=== PATIENT | male | born 1945 | race African-American/Black ===

== ENCOUNTER 2016-11-11 08:32 | Inpatient (IN) | payer MEDICARE, BC ==
[~2016-11-11] VITALS: Ht 185.4 cm; Wt 67.3 kg
[2016-11-11] VITALS (14 sets, daily range): BP systolic 62–137; BP diastolic 42–84
[~2016-11-11 08:32] MED LIST: AMLO5TAB2 PO; BISA5TAB4 PO; BUDE10.2 IH; CLON0.3T PO; FLUT12HF2 IH; IPRA4AER IH; LABE20DI IV; LEVO500T38 PO; MELO-150 PO; MOME13HF2 IH; OXYC20TA PO; PRED20TA PO; PROAIR HFA8.5 GM IH
[2016-11-11] MEDS ORDERED: IV NORMAL SALINE 1000ML BAG 1,000 ML IV ONE ×3 (08:45→09:30)
[2016-11-11] MEDS ORDERED: MIDAZOLAM HCL 2 MG/2 ML VIAL. IV PRN (08:45)
[2016-11-11] MEDS ORDERED: ETOMIDATE 20 MG/10 ML VIAL. IV ONE (08:45)
[2016-11-11] MEDS ORDERED: FENTANYL STANDARD PCA 30 ML IV PRN (08:45)
[2016-11-11] MEDS ORDERED: SUCCINYLCHOLINE 200 MG/10 ML VIAL. IV ONE (08:45)
[2016-11-11] MEDS ORDERED: MORPHINE SULFATE 4 MG/ML DISP.SYRIN. IV PRN (08:45)
[2016-11-11 09:29] LABS: BASE EXCESS COOX 10 mmol/L (-3-3); CARBON MONOXIDE 1.1 % (0.0-1.9); HCO3 COOX 40 mmol/L (21-28); METHEMOGLOBIN 0.5 % (0.0-1.9); OXYHEMOGLOBIN 96.5 %; PH COOX 7.28 (7.35-7.45); PO2 COOX 105 mmHg (65-108); SAT O2 COOX 98 % (92-99); TOTAL HEMOGLOBIN 13.9 g/dL
[2016-11-11] MEDS ORDERED: PIP/TAZO PER PHARMACY MC PRN (09:30)
[2016-11-11] MEDS ORDERED: LEVOFLOXACIN PER PHARMACY MC PRN (09:30)
[2016-11-11 09:33] LABS: BILIRUBIN,URINE NEGATIVE (NEG); GLUCOSE,URINE 100 mg/dL (NEG); NITRITE,URINE NEGATIVE (NEG); PH,URINE 5.5
[2016-11-11 09:37] LABS: FIO2 COOX 100; PCO2 COOX 88 mmHg (35-46)
[2016-11-11 09:41] LABS: BASO % 0 % (0-3); EOS % 0 % (0-3); HEMATOCRIT 42.7 % (39.0-53.0); HEMOGLOBIN 12.7 g/dL (13.0-17.5); LYMPH # 0.3 x10^3/uL (1.0-4.8); LYMPH % 1 % (24-48); MEAN CORPUSCULAR HEMOGLOBIN 29 pg (25-35); MEAN CORPUSCULAR HGB CONC 30 g/dL (31-37); MEAN CORPUSCULAR VOLUME 97 fL (79-100); MONO % 5 % (0-9); NEUT % 94 % (31-73); PLATELET COUNT 171 x10^3/uL (140-400); RED BLOOD COUNT 4.41 x10^6/uL (4.30-5.70); RED CELL DISTRIBUTION WIDTH 13.1 % (11.5-14.5); WHITE BLOOD COUNT 24.9 x10^3/uL (4.0-11.0)
--- NOTE | 2016-11-11 09:41 | PHYS DOC ---
Past Medical History Past Medical History: COPD, Hypertension Past Surgical History: Knee Replacement, Other Additional Past Surgical Histo: PROSTATE, WRIST Alcohol Use: Occasionally Drug Use: None Adult General Chief Complaint Chief Complaint: RESP ARREST HPI HPI Patient is a 71 year old male who presents by EMS for respiratory distress and altered mental status. He does not contribute to history due to altered mental status. His female significant other states he was talkative yesterday, and had no complaints at that time. He has been wearing home oxygen of 12 L. She woke this morning around 0530 and he was not responsive and breathing slowly. She had not noticed increased cough. She denies him complaining of anything recently since being home from hospital. 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) 30 ml @ 0 mls/hr CONT PRN 11/11/16 08:45 Levofloxacin/ Dextrose 1 each 1 each PRN DAILY PRN 11/11/16 09:30 Midazolam HCl (Versed 100mg/ 100ml Premix) 100 ml @ 0 mls/hr CONT PRN 11/11/16 08:45 11/11/16 10:09 1 MLS/HR Midazolam HCl 1 mg 1 mg PRN Q30MIN PRN 11/11/16 08:45 11/11/16 09:15 1 MG Morphine Sulfate 4 mg PRN Q1HR PRN 11/11/16 08:45 Piperacillin Sod/ Tazobactam Sod (Zosyn Per Pharmacy) 1 each PRN DAILY PRN 11/11/16 09:30 Sodium Chloride (Iv Sodium Chloride 0.9% 1000ml Bag) 1,000 ml @ 1,000 mls/hr 1X ONCE 11/11/16 09:30 11/11/16 10:29 DC 11/11/16 09:37 1,000 MLS/HR Succinylcholine Chloride 100 mg 100 mg 1X ONCE 11/11/16 08:45 11/11/16 08:46 DC 11/11/16 08:45 100 MG Vancomycin HCl (Vanco Per Pharmacy) 1 each PRN DAILY PRN 11/11/16 09:30 11/11/16 12:35 1 EACH Allergies Allergies Allergies Coded Allergies Type Severity Reaction Last Updated Verified lisinopril Allergy Intermediate 06/11/16 Yes Physical Exam Physical Exam Constitutional: Thin, Not responsive [] HENT: Normocephalic, atraumatic, bilateral external ears normal, oropharynx dry , no oral exudates, nose normal. [] Eyes: Pupils pinpoint and equal bilaterally, conjunctiva normal, no discharge. No eye movement [] Neck: no tenderness, no stridor. [] Cardiovascular: Heart rate regular rhythm [] Lungs & Thorax: Diminished bilaterally, equal, bagged breath sounds, shallow/ agonal/slow spontaneous breathing [] Abdomen: Bowel sounds normal, soft, no tenderness. [] Skin: Warm, dry, no erythema, no rash. [] Back: No tenderness, no CVA tenderness. [] Extremities: No tenderness, no edema. [] Neurologic: GCS 3 [] Psychologic: Unable to assess secondary to altered mental status. [] Current Patient Data Vital Signs Vital Signs Date Time Temp Pulse Resp B/P Pulse Ox O2 Delivery O2 Flow Rate FiO2 11/11/16 09:25 102 18 76/53 99 Ventilator 11/11/16 09:09 98.4 98.4 Lab Values Laboratory Tests Test 11/11/16 08:08 11/11/16 08:39 11/11/16 09:20 Urine Collection Type U cath Urine Color Yellow Urine Clarity Clear Urine pH 5.5 Urine Specific [place] 1.020 Urine Protein Negativemg/dL (NEG-TRACE) Urine Glucose (UA) 100mg/dL (NEG) Urine Ketones (Stick) Negativemg/dL (NEG) Urine Blood Negative (NEG) Urine Nitrite Negative (NEG) Urine Bilirubin Negative (NEG) Urine Urobilinogen Dipstick 1.0mg/dL (0.2 mg/dL) Urine Leukocyte Esterase Negative (NEG) Urine RBC 0/HPF (0-2) Urine WBC 1-4/HPF (0-4) Urine Squamous Epithelial Cells None/LPF Urine Bacteria 0/HPF (0-FEW) Urine Mucus Slight/LPF O2 Saturation 98% (92-99) Arterial Blood pH 7.28 (7.35-7.45) L Arterial Blood pCO2 at Patient Temp 88mmHg (35-46) *H Arterial Blood pO2 at Patient Temp 105mmHg (65-108) Arterial Blood HCO3 40mmol/L (21-28) H Arterial Blood Base Excess 10mmol/L (-3-3) H Oxyhemoglobin 96.5% Methemoglobin 0.5% (0.0-1.9) Carbon Monoxide, Quantitative 1.1% (0.0-1.9) FiO2 100 White Blood Count 24.9x10^3/uL (4.0-11.0) #H Red Blood Count 4.41x10^6/uL (4.30-5.70) Hemoglobin 12.7g/dL (13.0-17.5) L Hematocrit 42.7% (39.0-53.0) Mean Corpuscular Volume 97fL (79-100) # Mean Corpuscular Hemoglobin 29pg (25-35) Mean Corpuscular Hemoglobin Concent 30g/dL (31-37) L Red Cell Distribution Width 13.1% (11.5-14.5) Platelet Count 171x10^3/uL (140-400) Neutrophils (%) (Auto) 94% (31-73) H Lymphocytes (%) (Auto) 1% (24-48) L Monocytes (%) (Auto) 5% (0-9) Eosinophils (%) (Auto) 0% (0-3) Basophils (%) (Auto) 0% (0-3) Neutrophils # (Auto) 23.4x10^3uL (1.8-7.7) H Lymphocytes # (Auto) 0.3x10^3/uL (1.0-4.8) L Monocytes # (Auto) 1.2x10^3/uL (0.0-1.1) H Eosinophils # (Auto) 0.0x10^3/uL (0.0-0.7) Basophils # (Auto) 0.0x10^3/uL (0.0-0.2) Platelet Estimate Pending Prothrombin Time 14.0SEC (11.7-14.0) Prothrombin Time INR 1.2 (0.8-1.1) H Sodium Level 142mmol/L (136-145) Potassium Level 6.8mmol/L (3.5-5.1) *H Chloride Level 100mmol/L (98-107) Carbon Dioxide Level 40mmol/L (21-32) H Anion Gap 2 (6-14) L Blood Urea Nitrogen 46mg/dL (8-26) H Creatinine 1.6mg/dL (0.7-1.3) H Estimated GFR (Cockcroft-Gault) 51.5 Glucose Level 70mg/dL (70-99) Calcium Level 7.8mg/dL (8.5-10.1) L Total Bilirubin 0.4mg/dL (0.2-1.0) Direct Bilirubin 0.1mg/dL (0.0-0.2) Aspartate Amino Transferase (AST) 24U/L (15-37) Alanine Aminotransferase (ALT) 42U/L (16-63) Alkaline Phosphatase 17U/L (46-116) L Ammonia 49mcmol/L (11-34) H Troponin I Quantitative 0.053ng/mL (0.000-0.055) VT-Fii-X-Type Natriuretic Peptide 2080pg/mL (0-124) H Total Protein 4.9g/dL (6.4-8.2) L Albumin 2.1g/dL (3.4-5.0) L Laboratory Tests 11/11/16 09:20 Laboratory Tests 11/11/16 09:20 EKG EKG EKG as interpreted bilaterally normal sinus rhythm, rate 99, no ST-T changes, normal intervals, no ectopy Radiology/Procedures Radiology/Procedures Chest x-ray as interpreted by me with left mid and lower lung field consolidation Course & Med Decision Making Course & Med Decision Making Pertinent Labs and Imaging studies reviewed. (See chart for details) This is a 71-year-old male presenting in acute on chronic respiratory failure and altered mental status. His chest x-ray has signs of consolidation concerning for healthcare associated pneumonia. He is hypotensive and being resuscitated with IV fluids. His blood gas shows acute on chronic respiratory acidosis. He has leukocytosis and hyperkalemia. His hyperkalemia is treated with insulin/dextrose, albuterol, calcium. His hospice civil rights representative discussed that he is Full Code with nursing. Had discussion with daughter via phone, and his girlfriend and bolting machine operator both present here. All 3 were in agreement he is full code and this is what was related to EMS and myself during initial evaluation. There was no paperwork provided at this point. He was intubated with apparent agonal respirations. He had persistent hypotension despite IV fluid administration, so central line was placed and Levophed was started. I then spoke with Dr. Soto, who recently cared for him during his last admission, and she stated he is actually DNR per her discussion with him within the past week. At this point, he will be admitted to the ICU with continued care. Pulmonary/CC consultation placed. Discussed case also with Dr. Hernandez, covering for Dr. Soto, who will admit. Palliative Care consult placed. Dragon Disclaimer Dragon Disclaimer This electronic medical record was generated, in whole or in part, using a voice recognition dictation system. Intubation Procedure Intub Indication: Respiratory failure Consent: Unable to give consent due to emergent nature. Medications Used: see nursing note Procedure: The patient was placed in the appropriate position. Intubation was performed direct laryngoscopy using a 4 Mac blade and 7.5 endotracheal tube. ET tube was secured 25 cm at the gum. Initial confirmation of placement included bilateral breath sounds, tube fogging, adequate chest rise, adequate pulse oximetry reading. A chest x-ray to verify correct placement of the tube showed appropriate tube position. The patient tolerated the procedure well. Complications: none. Central Line Placement Proc Central Line Indication: Vascular access Consent: Emergent. Procedure: The patient was positioned appropriately and the skin over the right femoral vein was prepped and draped in a sterile fashion. A large bore needle was used to identify the vein. A guide wire was then inserted into the vein through the needle. A triple lumen catheter was then inserted into the vessel over the guide wire using the Seldinger technique. All ports showed good, free flowing blood return and were flushed with saline solution. The catheter was then securely fastened to the skin with sutures and covered with a sterile dressing. A post procedure X-ray was ordered. The patient tolerated the procedure well. Complications: none. [] Date and Time of Reassessment Date: Nov 11, 2016 Time: 10:00 Fluid Challenge Is the fluid challenge complet: Yes Blood Culture TIme: 09:22 Time Antibiotics Given: 09:55 Vital Signs Vital Signs: Vital Signs Date Time Temp Pulse Resp B/P Pulse Ox O2 Delivery O2 Flow Rate FiO2 11/11/16 09:25 102 18 76/53 99 Ventilator 11/11/16 09:09 98.4 98.4 Temperature Source: Axillary Respirations Respiratory Effort: Mechanical ventilation Respiratory Pattern: Bradypnea Cardiovascular Pulse Rhythm: Regular Heart: Nml rate, reg. rhythm Lung Sounds Breath Sounds: Clear Capillary Refil Capillary Refill: Rt Hand > 3 seconds Peripheral Pulse Pulse Location: Radial Pulse Strength: Weak (1+) Pulse Assessment Method: Palpation Integumentary Skin: Warm, Dry Skin Moisture: Dry Skin Turgor: Tented Skin Color: no edema, no erythema Fingernail Color: WNL Critical Care Time Critical care time was 60 minutes exclusive of procedures. Departure Departure Impression: Primary Impression: Acute and chronic respiratory failure ([id number]) Additional Impressions: HCAP (healthcare-associated pneumonia) Septic shock Hyperkalemia Disposition: ADMITTED INPATIENT Condition: CRITICAL Referrals: LEISA HARRISON MD (PCP) Problem Qualifiers Primary Impression: Acute and chronic respiratory failure ([id number]) Respiratory failure complication: hypoxia and hypercapnia Qualified Code: J96.21 - Acute and chronic respiratory failure with hypoxia Hari HART MD Nov 11, 2016 09:41
[2016-11-11] MEDS ORDERED: PIPERACILLIN/TAZOBACTAM 4.5 GM in IV NORMAL SALINE 100ML 100 ML IV ONE (09:45)
[2016-11-11] MEDS ORDERED: NOREPINEPHRIN PREMIX 250 ML IV ONE (09:45)
[2016-11-11] MEDS ORDERED: VANCOMYCIN 1.25 GM in IV NORMAL SALINE 250ML 250 ML IV ONE (09:45)
[2016-11-11 09:51] LABS: INR 1.2 (0.8-1.1)
[2016-11-11 09:52] LABS: ALBUMIN 2.1 g/dL (3.4-5.0); CALCIUM 7.8 mg/dL (8.5-10.1); CREATININE 1.6 mg/dL (0.7-1.3); DIRECT BILIRUBIN 0.1 mg/dL (0.0-0.2); GFR 51.5; TOTAL BILIRUBIN 0.4 mg/dL (0.2-1.0); TOTAL PROTEIN 4.9 g/dL (6.4-8.2)
--- NOTE | 2016-11-11 09:57 | ACF ---
Admission Forms Criteria RESPIRATORY FAILURE [facility] Clinical Indications for Admission to Inpatient Care (Place 'X' for any and all applicable criteria): Hospital admission is needed for appropriate care of the patient because of acute respiratory failure or insufficiency as indicated by ANY ONE of the following(1)(2)(3)(4)(5)(6)(7)(8): [X]I. Mechanical ventilation needed (acute invasive or noninvasive) [ ]II. Severe ventilation deficit as indicated by ANY ONE of the following (9) [ ]a) Respiratory acidosis (pH less than 7.32 and partial pressure of carbon dioxide greater than 40 mm Hg (5.3 kPa)) [ ]b) Partial pressure of carbon dioxide greater than 44 mm Hg (5.9 kPa ) (new) [ ]c) Airflow measurements less than 25% of predicted (eg, peak expiratory flow rate less than 100 L/minute) [ ]d) Forced vital capacity less than 15 mL/kg of ideal body weight, or 50% decrease in vital capacity from baseline [ ]III. Noncardiac pulmonary edema not resolving with rapid emergency treatment (8) [ ]IV. Severe respiratory distress as indicated by ANY ONE of the following: [ ]a) Severe tachypnea (respiratory rate greater than 30, greater than 45 for 6-month-old, greater than 60 for ) [ ]b) Severe hypoxemia (partial pressure of oxygen less than 50 mm Hg ( 6.7 kPa) on greater than 50% oxygen or partial pressure of oxygen to FIO2 ratio less than 200) [ ]c) Mental status deterioration from respiratory disease [ ]V. Airway obstruction or inadequate protection [A](10)(11) The original [employer] content created by [employer] has been revised. The portions of the content which have been revised are identified through the use of italic text or in bold, and [employer] has neither reviewed nor approved the modified material. All other unmodified content is copyright [employer]. Please see references footnoted in the original [employer] edition 2016 Admission Criteria Met?: Yes KAYY PENNINGTON Nov 11, 2016 09:57
[2016-11-11 09:58] LABS: BACTERIA,URINE 0 /HPF (0-FEW); PROTEIN,URINE NEGATIVE (NEG-TRACE); RBC,URINE 0 /HPF (0-2)
[2016-11-11 09:59] LABS: POTASSIUM 6.8 mmol/L (3.5-5.1)
[2016-11-11] MEDS: MIDAZOLAM PREMIX 100 ML IV PRN (10:09)
[2016-11-11] MEDS ORDERED: ALBUTEROL SULFATE 2.5 MG/3 ML NEBU. NEB ONE (10:15)
[2016-11-11] MEDS ORDERED: DEXTROSE 50% 25 GM / 50ML DISP.SYRIN. IV ONE (10:15)
[2016-11-11] MEDS ORDERED: INSULIN REGULAR 100 UNIT/ML 10ML VIAL. IV ONE (10:15)
--- NOTE | 2016-11-11 10:29 | RAD ---
Exam performed: One view chest. History: Post intubation. Date of service: 11/11/16. Comparison: One view chest from 11/04/16. Single AP upright portable view chest findings: Interval intubation, the tip of the endotracheal tube is in the midtrachea. There is also placement of a feeding tube which traverses through the midline chest. The tip is not seen however extends below left hemidiaphragm. There is development of infiltrates in the left mid and lower lung. The right lung is clear. No pleural effusion or pneumothorax. Impression: Interval intubation and placement of a feeding tube as outlined above. Interval development of diffuse infiltrates in the left mid and lower lung.
[2016-11-11] MEDS ORDERED: CALCIUM CHLORIDE 1,000 MG in IV NORMAL SALINE 50ML 50 ML IV ONE (10:30)
[2016-11-11] MEDS ORDERED: ONDANSETRON PF 4 MG/2 ML VIAL. IV PRN (10:30)
[2016-11-11] MEDS ORDERED: ACETAMINOPHEN 325 MG TABLET. PO PRN (10:30)
--- NOTE | 2016-11-11 10:30 | EKG ---
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
--- NOTE | 2016-11-11 10:45 | RAD ---
Exam performed: CT scan of the head without contrast. Date of Service: 11/11/16. Comparison: 05/13/13. Clinical History: Altered mental status, unresponsive. Patient is a poor historian Technique: Helical acquisitions are obtained from the foramen magnum to the vertex without intravenous administration of contrast. Findings: Prominence of cortical sulci and ventricular system is noted consistent with age related atrophy. There are areas of low-attenuation in both periventricular and subcortical deep white matter suggesting small vessel ischemic changes. Normal bejarano-white differentiation is maintained. There is no extra axial fluid collection, intraparenchymal hemorrhage or mass lesion. The visualized portions of the orbits, paranasal sinuses and the mastoid air cells appear clear. The calvarium is intact. Impression: 1. No acute intracranial process detected. 2. Age related atrophy and bilateral periventricular small vessel ischemic changes are redemonstrated. PQRS Compliance Statement: One or more of the following individualized dose reduction techniques were utilized for this examination: 1. Automated exposure control 2. Adjustment of the mA and/or kV according to patient size 3. Use of iterative reconstruction technique
[2016-11-11] MEDS ORDERED: MIDAZOLAM HCL/PF 5 MG/5 ML VIAL ONE (11:15)
--- NOTE | 2016-11-11 12:22 | CONS ---
DATE OF CONSULTATION: ATTENDING PHYSICIAN: Dr. Mahi Soto. REASON FOR CONSULTATION: Respiratory failure. HISTORY OF PRESENT ILLNESS: The patient is a 71-year-old male who has highly suspected end-stage COPD with chronic hypercapnia and hypoxia. He is very well known to me from his previous admission when he required hospitalization for acute respiratory failure secondary to COPD exacerbation. His echo at that time showed an ejection fraction of 65-70% and PA pressure of 47. The patient had further decline in his mental status and hypercapnia. Prior to that, I discussed advanced directives and he did not want to be placed on a ventilator and his sister was informed as well, she lives in [place]. We respected his decision. He was sent home on hospice. He was brought back with altered mental status. Apparently, the girlfriend in the ER reportedly told ER physician that she is a DPOA and wanted to proceed with aggressive care and he was intubated. His arterial blood gases revealed a pH of 7.28, pCO2 of 88 and a pO2 105 on 100% oxygen. His chest x-ray is showing bilateral interstitial infiltrates. Consultation requested for further evaluation and management. He is currently on 15 mcg of Levophed despite receiving 3 liters of IV fluids. PAST MEDICAL HISTORY: Significant for history of end-stage COPD, history of respiratory failure with chronic hypercapnia and hypoxia. History of hypertension. PAST SURGICAL HISTORY: Knee replacement, prostate surgery and wrist surgery. ALLERGIES: LISINOPRIL. CURRENT MEDICATIONS: Reviewed as listed in the [facility]AD including broad-spectrum antibiotics. REVIEW OF SYSTEMS: System review is unable to obtain as he is on the ventilator. SOCIAL HISTORY: Long history of tobacco use. PHYSICAL EXAMINATION: VITAL SIGNS: Blood pressure is 76 systolic on 15 mcg of Levophed. Afebrile, pulse ox is 97% on 50% FiO2, he is on assist control mode, rate of 24, tidal volume 550. HEENT: Sclerae nonicteric. NECK: Supple. LUNGS: Diminished breath sounds with poor air entry. CARDIOVASCULAR: Regular rate and rhythm. ABDOMEN: Soft and nontender. EXTREMITIES: No pitting edema. LABORATORY DATA: Reviewed. ABG was discussed in history of present illness. His BUN is 46 and creatinine 1.6. Potassium 6.8. Albumin is 2.1. White cell count 24.9. INR 1-1.2. IMPRESSION: 1. Qjsiw-tz-wgyptxn hypercapnic and hypoxic respiratory failure secondary to diffuse healthcare-associated pneumonia and septic shock. 2. 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 3. Todzl-ir-butxemw renal failure. 4. Severe protein-calorie malnutrition. 5. Bilateral infiltrates consistent with pneumonia. 6. Recent echo with normal ejection fraction. 7. Septic shock RECOMMENDATIONS: 1. Continue with present assist control mode and make necessary adjustments based on ABGs. 2. Broad spectrum antibiotic to cover for healthcare-associated pneumonia. 3. Bronchodilators. 4. Deep venous thrombosis prophylaxis. 5. Stress ulcer prophylaxis. 6. Continue Levophed and continue with volume resuscitation. 7. May add hydrocortisone, if blood pressure does not improve. 8. We will consult palliative care again. The patient was a DNR/DNI and that was per his wishes. Apparently, the patient's girlfriend changed the patient's code status. We will inform the sister in [place] and hopefully can go towards comfort care. d/w RN/RT cct 40 min JOHN BAIRES MD DR: LÓPEZ/sunny JOB#: [id number] / [id number] EAN
[2016-11-11] MEDS: VANCOMYCIN PER PHARMACY MC PRN (12:35)
[2016-11-11 12:36] LABS: PLT ESTIMATE ADEQUATE (ADEQUATE)
[2016-11-11 12:38] LABS: TOXIC GRANULATION PRESENT; TOXIC VACUOLATION PRESENT
--- NOTE | 2016-11-11 13:34 | PDOC2 ---
PALLIATIVE CARE Palliative Care Note Palliative Care Consult requested by Dr. Avilez to address goals of care. Patient known to Palliative Care from previous admission On Vent 60% Levophed 20 mcg. Versed gtt. Spoke with Z[facility]. States patient and daughter wanted full code this weekend when visited at home. Was visited daily. Spoke with Dani --daughter. States she had good visit with her father this weekend--eating, good spirits, engaged in conversation and saw improvement in his condition Dani states she wants everything done to "keep him alive" Reviewed risks of compressions with CPR. Patient already ventilated. Dani does not want to make any decisions. Wants to give her father the opportunity to improve. Dani plans to come to [place] tomorrow--will arrive around 9am. Requests patient be Full Code with Aggressive Care. JERMAINE BERNAL Nov 11, 2016 13:33
[2016-11-11] MEDS: ENOXAPARIN 30 MG/0.3 ML DISP.SYRIN. SQ SCH (14:13)
[2016-11-11] MEDS: HYDROCORTISONE SOD SUCC/PF 100 MG/2 ML VIAL. IV SCH ×2 (14:14→21:11)
[2016-11-11] MEDS: NOREPINEPHRIN PREMIX 250 ML IV PRN ×2 (14:14→17:08)
[2016-11-11] MEDS: PIPERACILLIN/TAZOBACTAM 3.375 GM in IV NORMAL SALINE 50ML 50 ML IV SCH (17:08)
[2016-11-11 17:12] LABS: CALCIUM 8.9 mg/dL (8.5-10.1); CREATININE 1.7 mg/dL (0.7-1.3)
[2016-11-11 17:13] LABS: POTASSIUM 6.2 mmol/L (3.5-5.1)
[2016-11-11] MEDS ORDERED: AMLO5TAB4 PO (17:39)
[2016-11-11] MEDS ORDERED: MELO-150 PO (17:39)
[2016-11-11] MEDS ORDERED: IPRA3AMP NEB (17:39)
[2016-11-11] MEDS ORDERED: OMEP10SU PO (17:39)
[2016-11-11] MEDS ORDERED: POLY17PO5 PO (17:39)
[2016-11-11] MEDS ORDERED: SPIR25TA3 PO (17:39)
[2016-11-11] MEDS ORDERED: MORP10DI10 PO (17:39)
[2016-11-11] MEDS ORDERED: BUDE10.2 IH (17:39)
[2016-11-11] MEDS ORDERED: PRED-220 PO (17:39)
[2016-11-11] MEDS ORDERED: DILT30TA26 PO (17:39)
[2016-11-11] MEDS ORDERED: SODIUM POLYSTYRENE SULFONATE 15 GM/60 ML ORAL.SUSP. PO ONE (17:45)
[2016-11-11] MEDS: IV NORMAL SALINE 1000ML BAG 1,000 ML IV SCH (18:13)
[2016-11-11] MEDS ORDERED: FAMOTIDINE 20 MG/2 ML VIAL IVP SCH (21:00)
[2016-11-11] MEDS: CHLORHEXIDINE 0.12% 15 ML MOUTHWASH. MM SCH (21:11)
[2016-11-11] MEDS: FAMOTIDINE 20 MG/2 ML VIAL IVP SCH (21:11)
[2016-11-12] VITALS (25 sets, daily range): BP systolic 83–140; BP diastolic 41–95
[2016-11-12] MEDS: IV NORMAL SALINE 1000ML BAG 1,000 ML IV SCH ×3 (00:28→23:36)
[2016-11-12] MEDS: PIPERACILLIN/TAZOBACTAM 3.375 GM in IV NORMAL SALINE 50ML 50 ML IV SCH ×5 (00:28→23:49)
[2016-11-12] MEDS: MIDAZOLAM PREMIX 100 ML IV PRN ×2 (03:14→23:36)
[2016-11-12] MEDS: HYDROCORTISONE SOD SUCC/PF 100 MG/2 ML VIAL. IV SCH ×3 (05:34→22:23)
[2016-11-12 06:18] LABS: HEMOGLOBIN 12.8 g/dL (13.0-17.5); RED BLOOD COUNT 4.46 x10^6/uL (4.30-5.70); RED CELL DISTRIBUTION WIDTH 13.1 % (11.5-14.5); WHITE BLOOD COUNT 19.5 x10^3/uL (4.0-11.0)
[2016-11-12 06:55] LABS: CREATININE 1.5 mg/dL (0.7-1.3); GFR 55.5; MAGNESIUM 2.2 mg/dL (1.8-2.4); POTASSIUM 4.8 mmol/L (3.5-5.1)
[2016-11-12] MEDS: VANCOMYCIN PER PHARMACY MC PRN (08:19)
[2016-11-12 08:32] LABS: HCO3 ABG 33 mmol/L (21-28); PCO2 ABG 42 mmHg (35-46); PH ABG 7.52 (7.35-7.45); PO2 ABG 77 mmHg (65-108); SAT O2 ABG 96 % (92-99)
[2016-11-12] MEDS: CHLORHEXIDINE 0.12% 15 ML MOUTHWASH. MM SCH ×2 (09:03→21:09)
--- NOTE | 2016-11-12 09:03 | PDOC ---
BRIAN KIM MD Nov 12, 2016 09:03
[2016-11-12 09:31] LABS: FIO2 ABG 40
--- NOTE | 2016-11-12 09:37 | HP ---
ADMIT DATE: 11/11/2016 CHIEF COMPLAINT: Respiratory failure. HISTORY OF PRESENT ILLNESS: A 71-year-old black male patient of Dr. Soto who has just left the hospital about 3 days ago with end-stage COPD, apparently on hospice, but he developed increasing respiratory distress, sent home and was brought to the ER and intubated with infiltrates present and treated as a high hospital-acquired pneumonia. There is some dispute about who is his power of older adult social work specialist as I did not know the patient, I have not spoken with any family members at this time, but apparently the durable power of older adult social work specialist is his daughter, Maranda and she has requested full code and is coming in from out of town. PAST MEDICAL HISTORY: Well documented in the all the records. ALLERGIES: LISINOPRIL, no other knowledge is known. SOCIAL HISTORY: Unknown. FAMILY HISTORY: Unknown. REVIEW OF SYSTEMS: Unknown. PHYSICAL EXAMINATION: ENT: Orally intubated. EYES: Dilated. NECK: No JVD, nodes or masses. LUNGS: Decreased breath sounds. Few wheezes. CARDIOVASCULAR: Irregular rate consistent with PACs, rate is about 120-130. ABDOMEN: Scaphoid, flat, benign. EXTREMITIES: Poor muscle mass, poor palpable pulses, 2+ clubbing. NEUROLOGIC: Intubated and sedated. ASSESSMENT: Respiratory failure with hypercarbia and respiratory acidosis secondary to end-stage COPD and hospital-acquired pneumonia. PLAN: The full code for now pending any change in decisions on durable power of older adult social work specialist. Very poor prognosis given his underlying poor nutritional status and lung function. BRIAN KIM MD DR: LESLY/sunny JOB#: [id number] / [id number]
--- NOTE | 2016-11-12 10:48 | RAD ---
Exam performed: Single view chest. History: Pneumonia follow-up. Date of service: 11/12/16. Comparison: 11/11/60. Single AP upright portable view chest findings: Endotracheal tube and feeding tube are in similar position as previously. There is a ongoing infiltrative the left upper lobe. Emphysematous changes. Chronic interstitial changes in both lung bases. Tiny left pleural effusion. Impression: Emphysematous changes with ongoing infiltrates left upper lobe. Stable support lines and tubes
[2016-11-12] MEDS ORDERED: VANCOMYCIN 750 MG in IV NORMAL SALINE 250ML 250 ML IV SCH (11:00)
--- NOTE | 2016-11-12 11:40 | PDOC ---
PULMONARY PROGRESS NOTES Subjective pt sedated Vitals Vital Signs Date Time Temp Pulse Resp B/P Pulse Ox O2 Delivery O2 Flow Rate FiO2 11/12/16 11:02 130 24 103/86 100 Ventilator 11/12/16 07:00 98.6 98.6 HEENT: Other Lungs: Crackles Cardiovascular: S1, S2 Abdomen: Soft, Non-tender Extremities: No Edema Skin: Warm, Dry Labs Laboratory Tests Test 11/11/16 08:08 11/11/16 08:39 11/11/16 09:20 11/11/16 12:00 Urine Collection Type U cath Urine Color Yellow Urine Clarity Clear Urine pH 5.5 Urine Specific [place] 1.020 Urine Protein Negativemg/dL (NEG-TRACE) Urine Glucose (UA) 100mg/dL (NEG) Urine Ketones (Stick) Negativemg/dL (NEG) Urine Blood Negative (NEG) Urine Nitrite Negative (NEG) Urine Bilirubin Negative (NEG) Urine Urobilinogen Dipstick 1.0mg/dL (0.2 mg/dL) Urine Leukocyte Esterase Negative (NEG) Urine RBC 0/HPF (0-2) Urine WBC 1-4/HPF (0-4) Urine Squamous Epithelial Cells None/LPF Urine Bacteria 0/HPF (0-FEW) Urine Mucus Slight/LPF O2 Saturation 98% (92-99) Arterial Blood pH 7.28 (7.35-7.45) Arterial Blood pCO2 at Patient Temp 88mmHg (35-46) Arterial Blood pO2 at Patient Temp 105mmHg (65-108) Arterial Blood HCO3 40mmol/L (21-28) Arterial Blood Base Excess 10mmol/L (-3-3) Oxyhemoglobin 96.5% Methemoglobin 0.5% (0.0-1.9) Carbon Monoxide, Quantitative 1.1% (0.0-1.9) FiO2 100 White Blood Count 24.9x10^3/uL (4.0-11.0) Red Blood Count 4.41x10^6/uL (4.30-5.70) Hemoglobin 12.7g/dL (13.0-17.5) Hematocrit 42.7% (39.0-53.0) Mean Corpuscular Volume 97fL (79-100) Mean Corpuscular Hemoglobin 29pg (25-35) Mean Corpuscular Hemoglobin Concent 30g/dL (31-37) Red Cell Distribution Width 13.1% (11.5-14.5) Platelet Count 171x10^3/uL (140-400) Neutrophils (%) (Auto) 94% (31-73) Lymphocytes (%) (Auto) 1% (24-48) Monocytes (%) (Auto) 5% (0-9) Eosinophils (%) (Auto) 0% (0-3) Basophils (%) (Auto) 0% (0-3) Neutrophils # (Auto) 23.4x10^3uL (1.8-7.7) Lymphocytes # (Auto) 0.3x10^3/uL (1.0-4.8) Monocytes # (Auto) 1.2x10^3/uL (0.0-1.1) Eosinophils # (Auto) 0.0x10^3/uL (0.0-0.7) Basophils # (Auto) 0.0x10^3/uL (0.0-0.2) Segmented Neutrophils % 91% (35-66) Band Neutrophils % 2% (0-9) Lymphocytes % 1% (24-48) Monocytes % 6% (0-10) Toxic Granulation Present Toxic Vacuolation Present Platelet Estimate Adequate (ADEQUATE) Prothrombin Time 14.0SEC (11.7-14.0) Prothromb Time International Ratio 1.2 (0.8-1.1) Sodium Level 142mmol/L (136-145) Potassium Level 6.8mmol/L (3.5-5.1) Chloride Level 100mmol/L (98-107) Carbon Dioxide Level 40mmol/L (21-32) Anion Gap 2 (6-14) Blood Urea Nitrogen 46mg/dL (8-26) Creatinine 1.6mg/dL (0.7-1.3) Estimated GFR (Cockcroft-Gault) 51.5 Glucose Level 70mg/dL (70-99) Calcium Level 7.8mg/dL (8.5-10.1) Total Bilirubin 0.4mg/dL (0.2-1.0) Direct Bilirubin 0.1mg/dL (0.0-0.2) Aspartate Amino Transf (AST/SGOT) 24U/L (15-37) Alanine Aminotransferase (ALT/SGPT) 42U/L (16-63) Alkaline Phosphatase 17U/L (46-116) Ammonia 49mcmol/L (11-34) Troponin I Quantitative 0.053ng/mL (0.000-0.055) JV-Fly-D-Type Natriuretic Peptide 2080pg/mL (0-124) Total Protein 4.9g/dL (6.4-8.2) Albumin 2.1g/dL (3.4-5.0) Nasal Screen MRSA (PCR) Negative (Negative) Test 11/11/16 12:48 11/11/16 13:40 11/11/16 16:56 11/11/16 21:14 Glucose (Fingerstick) 70mg/dL (70-99) 92mg/dL (70-99) Lactic Acid Level 2.9mmol/L (0.4-2.0) Sodium Level 142mmol/L (136-145) Potassium Level 6.2mmol/L (3.5-5.1) Chloride Level 101mmol/L (98-107) Carbon Dioxide Level 36mmol/L (21-32) Anion Gap 5 (6-14) Blood Urea Nitrogen 50mg/dL (8-26) Creatinine 1.7mg/dL (0.7-1.3) Estimated GFR (Cockcroft-Gault) 48.0 Glucose Level 62mg/dL (70-99) Calcium Level 8.9mg/dL (8.5-10.1) Test 11/12/16 05:10 11/12/16 08:15 White Blood Count 19.5x10^3/uL (4.0-11.0) Red Blood Count 4.46x10^6/uL (4.30-5.70) Hemoglobin 12.8g/dL (13.0-17.5) Hematocrit 41.0% (39.0-53.0) Mean Corpuscular Volume 92fL (79-100) Mean Corpuscular Hemoglobin 29pg (25-35) Mean Corpuscular Hemoglobin Concent 31g/dL (31-37) Red Cell Distribution Width 13.1% (11.5-14.5) Platelet Count 189x10^3/uL (140-400) Sodium Level 147mmol/L (136-145) Potassium Level 4.8mmol/L (3.5-5.1) Chloride Level 105mmol/L (98-107) Carbon Dioxide Level 33mmol/L (21-32) Anion Gap 9 (6-14) Blood Urea Nitrogen 59mg/dL (8-26) Creatinine 1.5mg/dL (0.7-1.3) Estimated GFR (Cockcroft-Gault) 55.5 Glucose Level 119mg/dL (70-99) Calcium Level 9.0mg/dL (8.5-10.1) Magnesium Level 2.2mg/dL (1.8-2.4) O2 Saturation 96% (92-99) Arterial Blood pH 7.52 (7.35-7.45) Arterial Blood pCO2 at Patient Temp 42mmHg (35-46) Arterial Blood pO2 at Patient Temp 77mmHg (65-108) Arterial Blood HCO3 33mmol/L (21-28) Arterial Blood Base Excess 9mmol/L (-3-3) FiO2 40 Laboratory Tests Test 11/11/16 12:00 11/11/16 12:48 11/11/16 13:40 11/11/16 16:56 Nasal Screen MRSA (PCR) Negative (Negative) Glucose (Fingerstick) 70mg/dL (70-99) Lactic Acid Level 2.9mmol/L (0.4-2.0) Sodium Level 142mmol/L (136-145) Potassium Level 6.2mmol/L (3.5-5.1) Chloride Level 101mmol/L (98-107) Carbon Dioxide Level 36mmol/L (21-32) Anion Gap 5 (6-14) Blood Urea Nitrogen 50mg/dL (8-26) Creatinine 1.7mg/dL (0.7-1.3) Estimated GFR (Cockcroft-Gault) 48.0 Glucose Level 62mg/dL (70-99) Calcium Level 8.9mg/dL (8.5-10.1) Test 11/11/16 21:14 11/12/16 05:10 11/12/16 08:15 Glucose (Fingerstick) 92mg/dL (70-99) White Blood Count 19.5x10^3/uL (4.0-11.0) Red Blood Count 4.46x10^6/uL (4.30-5.70) Hemoglobin 12.8g/dL (13.0-17.5) Hematocrit 41.0% (39.0-53.0) Mean Corpuscular Volume 92fL (79-100) Mean Corpuscular Hemoglobin 29pg (25-35) Mean Corpuscular Hemoglobin Concent 31g/dL (31-37) Red Cell Distribution Width 13.1% (11.5-14.5) Platelet Count 189x10^3/uL (140-400) Sodium Level 147mmol/L (136-145) Potassium Level 4.8mmol/L (3.5-5.1) Chloride Level 105mmol/L (98-107) Carbon Dioxide Level 33mmol/L (21-32) Anion Gap 9 (6-14) Blood Urea Nitrogen 59mg/dL (8-26) Creatinine 1.5mg/dL (0.7-1.3) Estimated GFR (Cockcroft-Gault) 55.5 Glucose Level 119mg/dL (70-99) Calcium Level 9.0mg/dL (8.5-10.1) Magnesium Level 2.2mg/dL (1.8-2.4) O2 Saturation 96% (92-99) Arterial Blood pH 7.52 (7.35-7.45) Arterial Blood pCO2 at Patient Temp 42mmHg (35-46) Arterial Blood pO2 at Patient Temp 77mmHg (65-108) Arterial Blood HCO3 33mmol/L (21-28) Arterial Blood Base Excess 9mmol/L (-3-3) FiO2 40 Medications Active Scripts Medications Dose Route/Sig Days Date Category Dose Instructions Morphine Sulfate 10 Mg/0.5 Ml Disp.syrin 5 Mg PO PRN Q3HRS PRN 11/11/16 Reported Duoneb 0.5-3(2.5) Mg/3 Ml (Albuterol/Ipratropium) 3 Ml Ampul.neb 3 Ml NEB PRN Q2HR PRN 11/11/16 Reported Prilosec (Omeprazole Magnesium) 10 Mg Suspdr.pkt 20 Mg PO DAILY 11/11/16 Reported Meloxicam 15 Mg Tablet 1 Tab PO DAILY 11/11/16 Reported Norvasc (Amlodipine Besylate) 5 Mg Tablet 1 Tab PO DAILY 11/11/16 Reported Miralax (Polyethylene Glycol 3350) 17 Gm Powd.pack 1 Packet PO DAILY PRN 11/11/16 Reported Symbicort 160-4.5 Mcg Inhaler (Budesonide/Formoterol Fumarate) 10.2 Gm Hfa.aer.ad 2 Puff IH BID 11/11/16 Reported Cardizem Tablet (Diltiazem Hcl) 30 Mg Tablet 300 Mg PO DAILY 11/11/16 Reported Spironolactone 25 Mg Tablet 1 Tab PO DAILY 11/11/16 Reported Prednisone 10 Mg Tablet 10 Mg PO UD 11/11/16 Reported Take 3 tablets by mouth twice a day for 3 days, then take 2 tablets by mouth twice a day for 3 days, then take 1 tablet by mouth twice a day for 3 days, then take 1 tablet by mouth daily x 3 days, then stop. Oxycodone Hcl 20 Mg Tablet 20 Mg PO PRN QID PRN 06/13/16 Reported Bisacodyl 5 Mg Tablet.dr 5 Mg PO DAILY06 06/13/16 Reported Clonidine Hcl 0.3 Mg Tablet 0.3 Mg PO TID 12/28/13 Reported Impression . 1. Wuqzz-dx-tjkxukw hypercapnic and hypoxic respiratory failure secondary to diffuse healthcare-associated pneumonia and septic shock. 2. 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 3. Jvxkz-yt-xwdxbli renal failure. 4. Severe protein-calorie malnutrition. 5. Bilateral infiltrates consistent with pneumonia. 6. Recent echo with normal ejection fraction. 7. Septic shock Plan . spoke with daughter at beside will continue support till next week if pt is not extubated by then we will proceed with extubation and allow natural continue support for now LIGIA MOORE MD Nov 12, 2016 11:40
[2016-11-12] MEDS: ENOXAPARIN 30 MG/0.3 ML DISP.SYRIN. SQ SCH (12:15)
--- NOTE | 2016-11-12 16:34 | PDOC2 ---
PALLIATIVE CARE Palliative Care Note Palliative Care Patient seen 1400 Remains on Vent 40% More alert today per staff Spoke with Dani and her brother Reviewed current medical condition Discussed Advanced Directive. Patient did not complete Advanced Directive document last admission. Patient did state that he wanted Dani to make health care decision if he was unable. This was documented in the medical record. Plan: Continue current treatment plan. Full Code; Full Aggressive Care. JERMAINE BERNAL Nov 12, 2016 16:34
--- NOTE | 2016-11-12 17:39 | PDOC2 ---
PALLIATIVE CARE Palliative Care Note Palliative Care Requested by staff to meet with john Louise. Dani not in room at this time. Dani requested meeting to address Advanced Directive information. Informed staff to relay to john Louise that patient will need to provide consent for release of medical record that addresses patient's request for Dani to make medical decisions if patient is unable. JERMAINE BERNAL Nov 12, 2016 17:39
[2016-11-12] MEDS: IPRATRPIUM/ALBUTEROL 0.5/2.5MG 3 ML NEBU. NEB SCH (19:25)
[2016-11-12] MEDS: FAMOTIDINE 20 MG/2 ML VIAL IVP SCH (21:03)
[2016-11-13] VITALS (24 sets, daily range): BP systolic 97–125; BP diastolic 66–87
[2016-11-13] MEDS: HYDROCORTISONE SOD SUCC/PF 100 MG/2 ML VIAL. IV SCH ×3 (05:52→22:02)
[2016-11-13] MEDS: PIPERACILLIN/TAZOBACTAM 3.375 GM in IV NORMAL SALINE 50ML 50 ML IV SCH ×4 (05:52→23:29)
[2016-11-13 06:27] LABS: HEMATOCRIT 39.1 % (39.0-53.0); HEMOGLOBIN 12.4 g/dL (13.0-17.5); RED BLOOD COUNT 4.36 x10^6/uL (4.30-5.70); RED CELL DISTRIBUTION WIDTH 13.3 % (11.5-14.5); WHITE BLOOD COUNT 14.4 x10^3/uL (4.0-11.0)
[2016-11-13 06:42] LABS: CALCIUM 8.3 mg/dL (8.5-10.1); CREATININE 1.4 mg/dL (0.7-1.3); GFR 60.1; POTASSIUM 3.4 mmol/L (3.5-5.1)
[2016-11-13] MEDS: IPRATRPIUM/ALBUTEROL 0.5/2.5MG 3 ML NEBU. NEB SCH ×4 (06:59→20:00)
[2016-11-13 07:14] LABS: HCO3 ABG 30 mmol/L (21-28); PCO2 ABG 36 mmHg (35-46); PH ABG 7.54 (7.35-7.45); PO2 ABG 84 mmHg (65-108); SAT O2 ABG 97 % (92-99)
[2016-11-13 07:16] LABS: FIO2 ABG 40%
--- NOTE | 2016-11-13 08:47 | RAD ---
Exam performed: One view chest. Indication: pneumonia follow up Date of Service: 11/13/2016 11:00 AM Comparison: Single view chest from 11/12/16. Single AP upright portable view chest findings: Cardiomediastinal silhouette is within limits of normal. There is a continued patchy infiltrate in the left upper lobe which appears slightly improved since previous study. Unchanged tiny left pleural effusion The right lung is clear. Emphysematous lungs. Endotracheal tube and feeding tube remain in similar position. The bony structures are normal. Impression: Improving patchy infiltrates left upper lobe with tiny left pleural effusion.
--- NOTE | 2016-11-13 09:12 | PDOC ---
PULMONARY PROGRESS NOTES Subjective pt sedated Vitals Vital Signs Date Time Temp Pulse Resp B/P Pulse Ox O2 Delivery O2 Flow Rate FiO2 11/13/16 08:44 99 Ventilator 11/13/16 08:00 101.2 134 24 107/81 101.2 HEENT: Other Lungs: Crackles Cardiovascular: S1, S2 Abdomen: Soft, Non-tender Extremities: No Edema Skin: Warm, Dry Labs Laboratory Tests Test 11/11/16 09:20 11/11/16 12:00 11/11/16 12:48 11/11/16 13:40 White Blood Count 24.9x10^3/uL (4.0-11.0) Red Blood Count 4.41x10^6/uL (4.30-5.70) Hemoglobin 12.7g/dL (13.0-17.5) Hematocrit 42.7% (39.0-53.0) Mean Corpuscular Volume 97fL (79-100) Mean Corpuscular Hemoglobin 29pg (25-35) Mean Corpuscular Hemoglobin Concent 30g/dL (31-37) Red Cell Distribution Width 13.1% (11.5-14.5) Platelet Count 171x10^3/uL (140-400) Neutrophils (%) (Auto) 94% (31-73) Lymphocytes (%) (Auto) 1% (24-48) Monocytes (%) (Auto) 5% (0-9) Eosinophils (%) (Auto) 0% (0-3) Basophils (%) (Auto) 0% (0-3) Neutrophils # (Auto) 23.4x10^3uL (1.8-7.7) Lymphocytes # (Auto) 0.3x10^3/uL (1.0-4.8) Monocytes # (Auto) 1.2x10^3/uL (0.0-1.1) Eosinophils # (Auto) 0.0x10^3/uL (0.0-0.7) Basophils # (Auto) 0.0x10^3/uL (0.0-0.2) Segmented Neutrophils % 91% (35-66) Band Neutrophils % 2% (0-9) Lymphocytes % 1% (24-48) Monocytes % 6% (0-10) Toxic Granulation Present Toxic Vacuolation Present Platelet Estimate Adequate (ADEQUATE) Prothrombin Time 14.0SEC (11.7-14.0) Prothromb Time International Ratio 1.2 (0.8-1.1) Sodium Level 142mmol/L (136-145) Potassium Level 6.8mmol/L (3.5-5.1) Chloride Level 100mmol/L (98-107) Carbon Dioxide Level 40mmol/L (21-32) Anion Gap 2 (6-14) Blood Urea Nitrogen 46mg/dL (8-26) Creatinine 1.6mg/dL (0.7-1.3) Estimated GFR (Cockcroft-Gault) 51.5 Glucose Level 70mg/dL (70-99) Calcium Level 7.8mg/dL (8.5-10.1) Total Bilirubin 0.4mg/dL (0.2-1.0) Direct Bilirubin 0.1mg/dL (0.0-0.2) Aspartate Amino Transf (AST/SGOT) 24U/L (15-37) Alanine Aminotransferase (ALT/SGPT) 42U/L (16-63) Alkaline Phosphatase 17U/L (46-116) Ammonia 49mcmol/L (11-34) Troponin I Quantitative 0.053ng/mL (0.000-0.055) IL-Fum-E-Type Natriuretic Peptide 2080pg/mL (0-124) Total Protein 4.9g/dL (6.4-8.2) Albumin 2.1g/dL (3.4-5.0) Nasal Screen MRSA (PCR) Negative (Negative) Glucose (Fingerstick) 70mg/dL (70-99) Lactic Acid Level 2.9mmol/L (0.4-2.0) Test 11/11/16 16:56 11/11/16 21:14 11/12/16 05:10 11/12/16 08:15 Sodium Level 142mmol/L (136-145) 147mmol/L (136-145) Potassium Level 6.2mmol/L (3.5-5.1) 4.8mmol/L (3.5-5.1) Chloride Level 101mmol/L (98-107) 105mmol/L (98-107) Carbon Dioxide Level 36mmol/L (21-32) 33mmol/L (21-32) Anion Gap 5 (6-14) 9 (6-14) Blood Urea Nitrogen 50mg/dL (8-26) 59mg/dL (8-26) Creatinine 1.7mg/dL (0.7-1.3) 1.5mg/dL (0.7-1.3) Estimated GFR (Cockcroft-Gault) 48.0 55.5 Glucose Level 62mg/dL (70-99) 119mg/dL (70-99) Calcium Level 8.9mg/dL (8.5-10.1) 9.0mg/dL (8.5-10.1) Glucose (Fingerstick) 92mg/dL (70-99) White Blood Count 19.5x10^3/uL (4.0-11.0) Red Blood Count 4.46x10^6/uL (4.30-5.70) Hemoglobin 12.8g/dL (13.0-17.5) Hematocrit 41.0% (39.0-53.0) Mean Corpuscular Volume 92fL (79-100) Mean Corpuscular Hemoglobin 29pg (25-35) Mean Corpuscular Hemoglobin Concent 31g/dL (31-37) Red Cell Distribution Width 13.1% (11.5-14.5) Platelet Count 189x10^3/uL (140-400) Magnesium Level 2.2mg/dL (1.8-2.4) O2 Saturation 96% (92-99) Arterial Blood pH 7.52 (7.35-7.45) Arterial Blood pCO2 at Patient Temp 42mmHg (35-46) Arterial Blood pO2 at Patient Temp 77mmHg (65-108) Arterial Blood HCO3 33mmol/L (21-28) Arterial Blood Base Excess 9mmol/L (-3-3) FiO2 40 Test 11/13/16 06:00 11/13/16 07:05 White Blood Count 14.4x10^3/uL (4.0-11.0) Red Blood Count 4.36x10^6/uL (4.30-5.70) Hemoglobin 12.4g/dL (13.0-17.5) Hematocrit 39.1% (39.0-53.0) Mean Corpuscular Volume 90fL (79-100) Mean Corpuscular Hemoglobin 28pg (25-35) Mean Corpuscular Hemoglobin Concent 32g/dL (31-37) Red Cell Distribution Width 13.3% (11.5-14.5) Platelet Count 130x10^3/uL (140-400) Sodium Level 152mmol/L (136-145) Potassium Level 3.4mmol/L (3.5-5.1) Chloride Level 110mmol/L (98-107) Carbon Dioxide Level 35mmol/L (21-32) Anion Gap 7 (6-14) Blood Urea Nitrogen 61mg/dL (8-26) Creatinine 1.4mg/dL (0.7-1.3) Estimated GFR (Cockcroft-Gault) 60.1 Glucose Level 219mg/dL (70-99) Calcium Level 8.3mg/dL (8.5-10.1) O2 Saturation 97% (92-99) Arterial Blood pH 7.54 (7.35-7.45) Arterial Blood pCO2 at Patient Temp 36mmHg (35-46) Arterial Blood pO2 at Patient Temp 84mmHg (65-108) Arterial Blood HCO3 30mmol/L (21-28) Arterial Blood Base Excess 7mmol/L (-3-3) FiO2 40% Laboratory Tests Test 11/13/16 06:00 11/13/16 07:05 White Blood Count 14.4x10^3/uL (4.0-11.0) Red Blood Count 4.36x10^6/uL (4.30-5.70) Hemoglobin 12.4g/dL (13.0-17.5) Hematocrit 39.1% (39.0-53.0) Mean Corpuscular Volume 90fL (79-100) Mean Corpuscular Hemoglobin 28pg (25-35) Mean Corpuscular Hemoglobin Concent 32g/dL (31-37) Red Cell Distribution Width 13.3% (11.5-14.5) Platelet Count 130x10^3/uL (140-400) Sodium Level 152mmol/L (136-145) Potassium Level 3.4mmol/L (3.5-5.1) Chloride Level 110mmol/L (98-107) Carbon Dioxide Level 35mmol/L (21-32) Anion Gap 7 (6-14) Blood Urea Nitrogen 61mg/dL (8-26) Creatinine 1.4mg/dL (0.7-1.3) Estimated GFR (Cockcroft-Gault) 60.1 Glucose Level 219mg/dL (70-99) Calcium Level 8.3mg/dL (8.5-10.1) O2 Saturation 97% (92-99) Arterial Blood pH 7.54 (7.35-7.45) Arterial Blood pCO2 at Patient Temp 36mmHg (35-46) Arterial Blood pO2 at Patient Temp 84mmHg (65-108) Arterial Blood HCO3 30mmol/L (21-28) Arterial Blood Base Excess 7mmol/L (-3-3) FiO2 40% Medications Active Scripts Medications Dose Route/Sig Days Date Category Dose Instructions Morphine Sulfate 10 Mg/0.5 Ml Disp.syrin 5 Mg PO PRN Q3HRS PRN 11/11/16 Reported Duoneb 0.5-3(2.5) Mg/3 Ml (Albuterol/Ipratropium) 3 Ml Ampul.neb 3 Ml NEB PRN Q2HR PRN 11/11/16 Reported Prilosec (Omeprazole Magnesium) 10 Mg Suspdr.pkt 20 Mg PO DAILY 11/11/16 Reported Meloxicam 15 Mg Tablet 1 Tab PO DAILY 11/11/16 Reported Norvasc (Amlodipine Besylate) 5 Mg Tablet 1 Tab PO DAILY 11/11/16 Reported Miralax (Polyethylene Glycol 3350) 17 Gm Powd.pack 1 Packet PO DAILY PRN 11/11/16 Reported Symbicort 160-4.5 Mcg Inhaler (Budesonide/Formoterol Fumarate) 10.2 Gm Hfa.aer.ad 2 Puff IH BID 11/11/16 Reported Cardizem Tablet (Diltiazem Hcl) 30 Mg Tablet 300 Mg PO DAILY 11/11/16 Reported Spironolactone 25 Mg Tablet 1 Tab PO DAILY 11/11/16 Reported Prednisone 10 Mg Tablet 10 Mg PO UD 11/11/16 Reported Take 3 tablets by mouth twice a day for 3 days, then take 2 tablets by mouth twice a day for 3 days, then take 1 tablet by mouth twice a day for 3 days, then take 1 tablet by mouth daily x 3 days, then stop. Oxycodone Hcl 20 Mg Tablet 20 Mg PO PRN QID PRN 06/13/16 Reported Bisacodyl 5 Mg Tablet.dr 5 Mg PO DAILY06 06/13/16 Reported Clonidine Hcl 0.3 Mg Tablet 0.3 Mg PO TID 12/28/13 Reported Comments cxr improving Impression . 1. Ifpyy-mo-tvxsrqv hypercapnic and hypoxic respiratory failure secondary possible gram pos and gram negative pneumonia and septic shock. 2. 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 3. Mpazx-xl-ltcdjui renal failure. 4. Severe protein-calorie malnutrition. 5. Bilateral infiltrates consistent with pneumonia. 6. Recent echo with normal ejection fraction. 7. Septic shock off pressors Plan . will decrease minute ventilation will continue support for now add free water repeat ABG later today empiric antibx off pressors tube feeding DVT and GI proph LIGIA MOORE MD Nov 13, 2016 09:12
[2016-11-13] MEDS: CHLORHEXIDINE 0.12% 15 ML MOUTHWASH. MM SCH ×2 (09:24→21:03)
--- NOTE | 2016-11-13 11:34 | PDOC2 ---
PALLIATIVE CARE Palliative Care Note Palliative Care Patient remains on vent. Attempted to reach Dani, daughter earlier. . Not in room.--per staff she is seeing JERMAINE SARGENT Nov 13, 2016 11:34
[2016-11-13] MEDS: VANCOMYCIN PER PHARMACY MC PRN (13:08)
[2016-11-13] MEDS: ENOXAPARIN 40 MG/0.4 ML DISP.SYRIN. SQ SCH (13:56)
[2016-11-13] MEDS: VANCOMYCIN 750 MG in IV NORMAL SALINE 250ML 250 ML IV SCH (13:56)
[2016-11-13 16:55] LABS: PH ABG 7.38 (7.35-7.45)
[2016-11-13 16:56] LABS: FIO2 ABG 40; HCO3 ABG 36 mmol/L (21-28); PCO2 ABG 62 mmHg (35-46); PO2 ABG 69 mmHg (65-108); SAT O2 ABG 92 % (92-99)
[2016-11-13] MEDS: FAMOTIDINE 20 MG/2 ML VIAL IVP SCH (21:03)
[2016-11-14] VITALS (24 sets, daily range): BP systolic 84–135; BP diastolic 65–85
[2016-11-14] MEDS: VANCOMYCIN 750 MG in IV NORMAL SALINE 250ML 250 ML IV SCH ×2 (02:18→14:28)
[2016-11-14] MEDS: PIPERACILLIN/TAZOBACTAM 3.375 GM in IV NORMAL SALINE 50ML 50 ML IV SCH ×4 (05:59→23:35)
[2016-11-14] MEDS: HYDROCORTISONE SOD SUCC/PF 100 MG/2 ML VIAL. IV SCH ×3 (06:02→21:53)
[2016-11-14 06:23] LABS: HEMATOCRIT 39.5 % (39.0-53.0); HEMOGLOBIN 12.3 g/dL (13.0-17.5); RED BLOOD COUNT 4.32 x10^6/uL (4.30-5.70); RED CELL DISTRIBUTION WIDTH 13.7 % (11.5-14.5)
[2016-11-14 06:39] LABS: CALCIUM 8.2 mg/dL (8.5-10.1); CREATININE 1.2 mg/dL (0.7-1.3); GFR 71.8; POTASSIUM 3.3 mmol/L (3.5-5.1)
[2016-11-14] MEDS: IPRATRPIUM/ALBUTEROL 0.5/2.5MG 3 ML NEBU. NEB SCH ×4 (07:28→19:02)
[2016-11-14 08:02] LABS: HCO3 ABG 39 mmol/L (21-28); PO2 ABG 64 mmHg (65-108); SAT O2 ABG 90 % (92-99)
[2016-11-14] MEDS: CHLORHEXIDINE 0.12% 15 ML MOUTHWASH. MM SCH ×2 (08:21→20:40)
[2016-11-14 08:30] LABS: FIO2 ABG 40; PCO2 ABG 81 mmHg (35-46)
--- NOTE | 2016-11-14 08:52 | RAD ---
Exam performed: One view chest. History: Pneumonia follow-up. Date of service: 11/14/16. Comparison: 11/13/16. Single AP semiupright portable view chest findings: Improving infiltrates in the left upper lobe with improving small left pleural effusion. The lungs are otherwise clear. Mildly prominent interstitial markings are seen in both lungs. Endotracheal tube and feeding tube are in similar position as previously. Impression: Improving infiltrates left upper lobe with improving small left pleural effusion.
--- NOTE | 2016-11-14 09:39 | PDOC ---
Provider Note Provider Note afeb, bp better w/ fair output- K+ 3.3, bun lower- still on 3 antibx, vent support- cont same BRIAN KIM MD Nov 14, 2016 09:39
[2016-11-14] MEDS: VANCOMYCIN PER PHARMACY MC PRN (10:21)
[2016-11-14 10:33] LABS: ALBUMIN/GLOBULIN RATIO 0.6 (1.0-1.7); CALCIUM 8.8 mg/dL (8.5-10.1); CREATININE 1.2 mg/dL (0.7-1.3); GFR 71.8; POTASSIUM 3.4 mmol/L (3.5-5.1); TOTAL BILIRUBIN 0.4 mg/dL (0.2-1.0); TOTAL PROTEIN 5.6 g/dL (6.4-8.2)
[2016-11-14] MEDS: POTASSIUM CL 20MEQ D5-0.9%NACL 1,000 ML IV SCH (10:38)
--- NOTE | 2016-11-14 10:53 | PDOC ---
PULMONARY PROGRESS NOTES Subjective pt sedated Acidotic on AC mode Vitals Vital Signs Date Time Temp Pulse Resp B/P Pulse Ox O2 Delivery O2 Flow Rate FiO2 11/14/16 10:41 98 Ventilator 11/14/16 10:00 112 25 111/76 11/14/16 08:00 96.7 96.7 HEENT: Other Lungs: Other (decrease bs) Cardiovascular: S1, S2 Abdomen: Soft, Non-tender Extremities: No Edema Skin: Warm, Dry Labs Laboratory Tests Test 11/13/16 06:00 11/13/16 07:05 11/13/16 10:28 11/13/16 16:28 White Blood Count 14.4x10^3/uL (4.0-11.0) Red Blood Count 4.36x10^6/uL (4.30-5.70) Hemoglobin 12.4g/dL (13.0-17.5) Hematocrit 39.1% (39.0-53.0) Mean Corpuscular Volume 90fL (79-100) Mean Corpuscular Hemoglobin 28pg (25-35) Mean Corpuscular Hemoglobin Concent 32g/dL (31-37) Red Cell Distribution Width 13.3% (11.5-14.5) Platelet Count 130x10^3/uL (140-400) Sodium Level 152mmol/L (136-145) Potassium Level 3.4mmol/L (3.5-5.1) Chloride Level 110mmol/L (98-107) Carbon Dioxide Level 35mmol/L (21-32) Anion Gap 7 (6-14) Blood Urea Nitrogen 61mg/dL (8-26) Creatinine 1.4mg/dL (0.7-1.3) Estimated GFR (Cockcroft-Gault) 60.1 Glucose Level 219mg/dL (70-99) Calcium Level 8.3mg/dL (8.5-10.1) O2 Saturation 97% (92-99) 92% (92-99) Arterial Blood pH 7.54 (7.35-7.45) 7.38 (7.35-7.45) Arterial Blood pCO2 at Patient Temp 36mmHg (35-46) 62mmHg (35-46) Arterial Blood pO2 at Patient Temp 84mmHg (65-108) 69mmHg (65-108) Arterial Blood HCO3 30mmol/L (21-28) 36mmol/L (21-28) Arterial Blood Base Excess 7mmol/L (-3-3) 8mmol/L (-3-3) FiO2 40% 40 Vancomycin Level Trough 7.5mcg/mL (10.0-20.0) Vancomycin Last Dose Date 11/12/16 Vancomycin Last Dose Time 1100 Test 11/14/16 06:10 11/14/16 08:00 11/14/16 09:35 11/14/16 09:39 White Blood Count 18.0x10^3/uL (4.0-11.0) Red Blood Count 4.32x10^6/uL (4.30-5.70) Hemoglobin 12.3g/dL (13.0-17.5) Hematocrit 39.5% (39.0-53.0) Mean Corpuscular Volume 91fL (79-100) Mean Corpuscular Hemoglobin 29pg (25-35) Mean Corpuscular Hemoglobin Concent 31g/dL (31-37) Red Cell Distribution Width 13.7% (11.5-14.5) Platelet Count 137x10^3/uL (140-400) Sodium Level 155mmol/L (136-145) 156mmol/L (136-145) Potassium Level 3.3mmol/L (3.5-5.1) 3.4mmol/L (3.5-5.1) Chloride Level 111mmol/L (98-107) 112mmol/L (98-107) Carbon Dioxide Level 40mmol/L (21-32) 41mmol/L (21-32) Anion Gap 4 (6-14) 3 (6-14) Blood Urea Nitrogen 55mg/dL (8-26) 51mg/dL (8-26) Creatinine 1.2mg/dL (0.7-1.3) 1.2mg/dL (0.7-1.3) Estimated GFR (Cockcroft-Gault) 71.8 71.8 Glucose Level 182mg/dL (70-99) 171mg/dL (70-99) Calcium Level 8.2mg/dL (8.5-10.1) 8.8mg/dL (8.5-10.1) O2 Saturation 90% (92-99) Arterial Blood pH 7.30 (7.35-7.45) Arterial Blood pCO2 at Patient Temp 81mmHg (35-46) Arterial Blood pO2 at Patient Temp 64mmHg (65-108) Arterial Blood HCO3 39mmol/L (21-28) Arterial Blood Base Excess 9mmol/L (-3-3) FiO2 40 BUN/Creatinine Ratio 43 (6-20) Total Bilirubin 0.4mg/dL (0.2-1.0) Aspartate Amino Transf (AST/SGOT) 477U/L (15-37) Alanine Aminotransferase (ALT/SGPT) 1623U/L (16-63) Alkaline Phosphatase 23U/L (46-116) Total Protein 5.6g/dL (6.4-8.2) Albumin 2.0g/dL (3.4-5.0) Albumin/Globulin Ratio 0.6 (1.0-1.7) Magnesium Level 2.3mg/dL (1.8-2.4) Laboratory Tests Test 11/13/16 16:28 11/14/16 06:10 11/14/16 08:00 11/14/16 09:35 O2 Saturation 92% (92-99) 90% (92-99) Arterial Blood pH 7.38 (7.35-7.45) 7.30 (7.35-7.45) Arterial Blood pCO2 at Patient Temp 62mmHg (35-46) 81mmHg (35-46) Arterial Blood pO2 at Patient Temp 69mmHg (65-108) 64mmHg (65-108) Arterial Blood HCO3 36mmol/L (21-28) 39mmol/L (21-28) Arterial Blood Base Excess 8mmol/L (-3-3) 9mmol/L (-3-3) FiO2 40 40 White Blood Count 18.0x10^3/uL (4.0-11.0) Red Blood Count 4.32x10^6/uL (4.30-5.70) Hemoglobin 12.3g/dL (13.0-17.5) Hematocrit 39.5% (39.0-53.0) Mean Corpuscular Volume 91fL (79-100) Mean Corpuscular Hemoglobin 29pg (25-35) Mean Corpuscular Hemoglobin Concent 31g/dL (31-37) Red Cell Distribution Width 13.7% (11.5-14.5) Platelet Count 137x10^3/uL (140-400) Sodium Level 155mmol/L (136-145) 156mmol/L (136-145) Potassium Level 3.3mmol/L (3.5-5.1) 3.4mmol/L (3.5-5.1) Chloride Level 111mmol/L (98-107) 112mmol/L (98-107) Carbon Dioxide Level 40mmol/L (21-32) 41mmol/L (21-32) Anion Gap 4 (6-14) 3 (6-14) Blood Urea Nitrogen 55mg/dL (8-26) 51mg/dL (8-26) Creatinine 1.2mg/dL (0.7-1.3) 1.2mg/dL (0.7-1.3) Estimated GFR (Cockcroft-Gault) 71.8 71.8 Glucose Level 182mg/dL (70-99) 171mg/dL (70-99) Calcium Level 8.2mg/dL (8.5-10.1) 8.8mg/dL (8.5-10.1) BUN/Creatinine Ratio 43 (6-20) Total Bilirubin 0.4mg/dL (0.2-1.0) Aspartate Amino Transf (AST/SGOT) 477U/L (15-37) Alanine Aminotransferase (ALT/SGPT) 1623U/L (16-63) Alkaline Phosphatase 23U/L (46-116) Total Protein 5.6g/dL (6.4-8.2) Albumin 2.0g/dL (3.4-5.0) Albumin/Globulin Ratio 0.6 (1.0-1.7) Test 11/14/16 09:39 Magnesium Level 2.3mg/dL (1.8-2.4) Medications Active Scripts Medications Dose Route/Sig Days Date Category Dose Instructions Morphine Sulfate 10 Mg/0.5 Ml Disp.syrin 5 Mg PO PRN Q3HRS PRN 11/11/16 Reported Duoneb 0.5-3(2.5) Mg/3 Ml (Albuterol/Ipratropium) 3 Ml Ampul.neb 3 Ml NEB PRN Q2HR PRN 11/11/16 Reported Prilosec (Omeprazole Magnesium) 10 Mg Suspdr.pkt 20 Mg PO DAILY 11/11/16 Reported Meloxicam 15 Mg Tablet 1 Tab PO DAILY 11/11/16 Reported Norvasc (Amlodipine Besylate) 5 Mg Tablet 1 Tab PO DAILY 11/11/16 Reported Miralax (Polyethylene Glycol 3350) 17 Gm Powd.pack 1 Packet PO DAILY PRN 11/11/16 Reported Symbicort 160-4.5 Mcg Inhaler (Budesonide/Formoterol Fumarate) 10.2 Gm Hfa.aer.ad 2 Puff IH BID 11/11/16 Reported Cardizem Tablet (Diltiazem Hcl) 30 Mg Tablet 300 Mg PO DAILY 11/11/16 Reported Spironolactone 25 Mg Tablet 1 Tab PO DAILY 11/11/16 Reported Prednisone 10 Mg Tablet 10 Mg PO UD 11/11/16 Reported Take 3 tablets by mouth twice a day for 3 days, then take 2 tablets by mouth twice a day for 3 days, then take 1 tablet by mouth twice a day for 3 days, then take 1 tablet by mouth daily x 3 days, then stop. Oxycodone Hcl 20 Mg Tablet 20 Mg PO PRN QID PRN 06/13/16 Reported Bisacodyl 5 Mg Tablet.dr 5 Mg PO DAILY06 06/13/16 Reported Clonidine Hcl 0.3 Mg Tablet 0.3 Mg PO TID 12/28/13 Reported Comments cxr 11/14 improving infiltrates Impression . 1. Nszor-jn-afucbud hypercapnic and hypoxic respiratory failure secondary possible gram pos and gram negative pneumonia and septic shock. 2. 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 3. Jlpzb-gt-vlhtgbp renal failure. 4. Severe protein-calorie malnutrition. 5. Bilateral infiltrates consistent with pneumonia. 6. Recent echo with normal ejection fraction. 7. Septic shock off pressors Plan . will increase minute ventilation today change versed to propofol will continue support for now prn free water repeat ABG later today empiric antibx off pressors tube feeding DVT and GI proph d/w RN/ family may withdraw care if no improvement in a week cct 25 min JOHN BAIRES MD Nov 14, 2016 10:53
[2016-11-14] MEDS: ENOXAPARIN 40 MG/0.4 ML DISP.SYRIN. SQ SCH (14:27)
[2016-11-14 14:43] LABS: HCO3 ABG 40 mmol/L (21-28); PH ABG 7.36 (7.35-7.45); PO2 ABG 66 mmHg (65-108); SAT O2 ABG 93 % (92-99)
[2016-11-14 14:47] LABS: FIO2 ABG 40; PCO2 ABG 72 mmHg (35-46)
--- NOTE | 2016-11-14 15:05 | PDOC2 ---
PALLIATIVE CARE Palliative Care Note Palliative Care Patient remain on Vent. Decreased breath sounds Spoke with daughter Dani. Interested in updates only from Case Management. Palliative Care will sign off. JERMAINE BERNAL Nov 14, 2016 15:05
[2016-11-14] MEDS: FAMOTIDINE 20 MG/2 ML VIAL IVP SCH (20:40)
[2016-11-15] VITALS (24 sets, daily range): BP systolic 90–142; BP diastolic 60–83
[2016-11-15] MEDS: VANCOMYCIN 750 MG in IV NORMAL SALINE 250ML 250 ML IV SCH (02:38)
[2016-11-15] MEDS: POTASSIUM CL 20MEQ D5-0.9%NACL 1,000 ML IV SCH (03:57)
[2016-11-15] MEDS: PIPERACILLIN/TAZOBACTAM 3.375 GM in IV NORMAL SALINE 50ML 50 ML IV SCH ×2 (05:48→12:58)
[2016-11-15] MEDS: HYDROCORTISONE SOD SUCC/PF 100 MG/2 ML VIAL. IV SCH ×3 (05:51→21:22)
[2016-11-15] MEDS: IPRATRPIUM/ALBUTEROL 0.5/2.5MG 3 ML NEBU. NEB SCH ×4 (07:04→19:48)
[2016-11-15 07:19] LABS: ALBUMIN 1.8 g/dL (3.4-5.0); ALBUMIN/GLOBULIN RATIO 0.6 (1.0-1.7); CALCIUM 8.4 mg/dL (8.5-10.1); GFR 88.6; MAGNESIUM 2.3 mg/dL (1.8-2.4); POTASSIUM 3.8 mmol/L (3.5-5.1); TOTAL BILIRUBIN 0.3 mg/dL (0.2-1.0); TOTAL PROTEIN 4.8 g/dL (6.4-8.2)
[2016-11-15 07:24] LABS: HCO3 ABG 40 mmol/L (21-28); PH ABG 7.37 (7.35-7.45); PO2 ABG 69 mmHg (65-108); SAT O2 ABG 93 % (92-99)
[2016-11-15 07:25] LABS: FIO2 ABG 40; PCO2 ABG 71 mmHg (35-46)
[2016-11-15 07:30] LABS: BASO % 0 % (0-3); EOS % 0 % (0-3); HEMATOCRIT 35.4 % (39.0-53.0); HEMOGLOBIN 10.9 g/dL (13.0-17.5); LYMPH # 0.7 x10^3/uL (1.0-4.8); LYMPH % 4 % (24-48); MEAN CORPUSCULAR HEMOGLOBIN 29 pg (25-35); MEAN CORPUSCULAR HGB CONC 31 g/dL (31-37); MEAN CORPUSCULAR VOLUME 93 fL (79-100); MONO % 3 % (0-9); NEUT % 93 % (31-73); PLATELET COUNT 99 x10^3/uL (140-400); RED BLOOD COUNT 3.81 x10^6/uL (4.30-5.70); RED CELL DISTRIBUTION WIDTH 13.7 % (11.5-14.5)
--- NOTE | 2016-11-15 07:40 | RAD ---
Indication pneumonia. Difficulty breathing. Follow-up. AP views of the chest were obtained and are compared to an examination one day earlier. Background changes compatible with emphysema and/or fibrosis persist. There is some new volume loss in the left lower lobe likely reflecting atelectasis. Heart and pulmonary vessels are similar. Endotracheal tube is appropriately positioned above the stiven. Nasogastric tube has its tip beyond the proximal body of the stomach. IMPRESSION: Appropriately positioned endotracheal tube New, minimal, volume loss in the left lower lobe likely reflecting atelectasis
[2016-11-15] MEDS: CHLORHEXIDINE 0.12% 15 ML MOUTHWASH. MM SCH ×2 (09:00→21:21)
[2016-11-15] MEDS ORDERED: 0.9 % SODIUM CHLORIDE 10 ML DISP.SYRIN. IV PRN ×3 (10:00)
--- NOTE | 2016-11-15 10:48 | PDOC ---
PULMONARY PROGRESS NOTES Subjective awake, on AC mode Vitals Vital Signs Date Time Temp Pulse Resp B/P Pulse Ox O2 Delivery O2 Flow Rate FiO2 11/15/16 07:05 95 Ventilator 11/15/16 06:00 80 19 101/70 11/15/16 04:00 98.4 98.4 General: Alert, No acute distress HEENT: Other Lungs: Other (decrease bs) Cardiovascular: S1, S2 Abdomen: Soft, Non-tender Extremities: No Edema Skin: Warm, Dry Labs Laboratory Tests Test 11/13/16 16:28 11/14/16 06:10 11/14/16 08:00 11/14/16 09:35 O2 Saturation 92% (92-99) 90% (92-99) Arterial Blood pH 7.38 (7.35-7.45) 7.30 (7.35-7.45) Arterial Blood pCO2 at Patient Temp 62mmHg (35-46) 81mmHg (35-46) Arterial Blood pO2 at Patient Temp 69mmHg (65-108) 64mmHg (65-108) Arterial Blood HCO3 36mmol/L (21-28) 39mmol/L (21-28) Arterial Blood Base Excess 8mmol/L (-3-3) 9mmol/L (-3-3) FiO2 40 40 White Blood Count 18.0x10^3/uL (4.0-11.0) Red Blood Count 4.32x10^6/uL (4.30-5.70) Hemoglobin 12.3g/dL (13.0-17.5) Hematocrit 39.5% (39.0-53.0) Mean Corpuscular Volume 91fL (79-100) Mean Corpuscular Hemoglobin 29pg (25-35) Mean Corpuscular Hemoglobin Concent 31g/dL (31-37) Red Cell Distribution Width 13.7% (11.5-14.5) Platelet Count 137x10^3/uL (140-400) Sodium Level 155mmol/L (136-145) 156mmol/L (136-145) Potassium Level 3.3mmol/L (3.5-5.1) 3.4mmol/L (3.5-5.1) Chloride Level 111mmol/L (98-107) 112mmol/L (98-107) Carbon Dioxide Level 40mmol/L (21-32) 41mmol/L (21-32) Anion Gap 4 (6-14) 3 (6-14) Blood Urea Nitrogen 55mg/dL (8-26) 51mg/dL (8-26) Creatinine 1.2mg/dL (0.7-1.3) 1.2mg/dL (0.7-1.3) Estimated GFR (Cockcroft-Gault) 71.8 71.8 Glucose Level 182mg/dL (70-99) 171mg/dL (70-99) Calcium Level 8.2mg/dL (8.5-10.1) 8.8mg/dL (8.5-10.1) BUN/Creatinine Ratio 43 (6-20) Total Bilirubin 0.4mg/dL (0.2-1.0) Aspartate Amino Transf (AST/SGOT) 477U/L (15-37) Alanine Aminotransferase (ALT/SGPT) 1623U/L (16-63) Alkaline Phosphatase 23U/L (46-116) Total Protein 5.6g/dL (6.4-8.2) Albumin 2.0g/dL (3.4-5.0) Albumin/Globulin Ratio 0.6 (1.0-1.7) Test 11/14/16 09:39 11/14/16 14:30 11/15/16 06:00 11/15/16 07:15 Magnesium Level 2.3mg/dL (1.8-2.4) 2.3mg/dL (1.8-2.4) O2 Saturation 93% (92-99) 93% (92-99) Arterial Blood pH 7.36 (7.35-7.45) 7.37 (7.35-7.45) Arterial Blood pCO2 at Patient Temp 72mmHg (35-46) 71mmHg (35-46) Arterial Blood pO2 at Patient Temp 66mmHg (65-108) 69mmHg (65-108) Arterial Blood HCO3 40mmol/L (21-28) 40mmol/L (21-28) Arterial Blood Base Excess 12mmol/L (-3-3) 12mmol/L (-3-3) FiO2 40 40 White Blood Count 18.0x10^3/uL (4.0-11.0) Red Blood Count 3.81x10^6/uL (4.30-5.70) Hemoglobin 10.9g/dL (13.0-17.5) Hematocrit 35.4% (39.0-53.0) Mean Corpuscular Volume 93fL (79-100) Mean Corpuscular Hemoglobin 29pg (25-35) Mean Corpuscular Hemoglobin Concent 31g/dL (31-37) Red Cell Distribution Width 13.7% (11.5-14.5) Platelet Count 99x10^3/uL (140-400) Neutrophils (%) (Auto) 93% (31-73) Lymphocytes (%) (Auto) 4% (24-48) Monocytes (%) (Auto) 3% (0-9) Eosinophils (%) (Auto) 0% (0-3) Basophils (%) (Auto) 0% (0-3) Neutrophils # (Auto) 16.8x10^3uL (1.8-7.7) Lymphocytes # (Auto) 0.7x10^3/uL (1.0-4.8) Monocytes # (Auto) 0.5x10^3/uL (0.0-1.1) Eosinophils # (Auto) 0.0x10^3/uL (0.0-0.7) Basophils # (Auto) 0.0x10^3/uL (0.0-0.2) Sodium Level 159mmol/L (136-145) Potassium Level 3.8mmol/L (3.5-5.1) Chloride Level 117mmol/L (98-107) Carbon Dioxide Level 42mmol/L (21-32) Anion Gap 0 (6-14) Blood Urea Nitrogen 42mg/dL (8-26) Creatinine 1.0mg/dL (0.7-1.3) Estimated GFR (Cockcroft-Gault) 88.6 BUN/Creatinine Ratio 42 (6-20) Glucose Level 207mg/dL (70-99) Calcium Level 8.4mg/dL (8.5-10.1) Total Bilirubin 0.3mg/dL (0.2-1.0) Aspartate Amino Transf (AST/SGOT) 251U/L (15-37) Alanine Aminotransferase (ALT/SGPT) 1179U/L (16-63) Alkaline Phosphatase 22U/L (46-116) Total Protein 4.8g/dL (6.4-8.2) Albumin 1.8g/dL (3.4-5.0) Albumin/Globulin Ratio 0.6 (1.0-1.7) Laboratory Tests Test 11/14/16 14:30 11/15/16 06:00 11/15/16 07:15 O2 Saturation 93% (92-99) 93% (92-99) Arterial Blood pH 7.36 (7.35-7.45) 7.37 (7.35-7.45) Arterial Blood pCO2 at Patient Temp 72mmHg (35-46) 71mmHg (35-46) Arterial Blood pO2 at Patient Temp 66mmHg (65-108) 69mmHg (65-108) Arterial Blood HCO3 40mmol/L (21-28) 40mmol/L (21-28) Arterial Blood Base Excess 12mmol/L (-3-3) 12mmol/L (-3-3) FiO2 40 40 White Blood Count 18.0x10^3/uL (4.0-11.0) Red Blood Count 3.81x10^6/uL (4.30-5.70) Hemoglobin 10.9g/dL (13.0-17.5) Hematocrit 35.4% (39.0-53.0) Mean Corpuscular Volume 93fL (79-100) Mean Corpuscular Hemoglobin 29pg (25-35) Mean Corpuscular Hemoglobin Concent 31g/dL (31-37) Red Cell Distribution Width 13.7% (11.5-14.5) Platelet Count 99x10^3/uL (140-400) Neutrophils (%) (Auto) 93% (31-73) Lymphocytes (%) (Auto) 4% (24-48) Monocytes (%) (Auto) 3% (0-9) Eosinophils (%) (Auto) 0% (0-3) Basophils (%) (Auto) 0% (0-3) Neutrophils # (Auto) 16.8x10^3uL (1.8-7.7) Lymphocytes # (Auto) 0.7x10^3/uL (1.0-4.8) Monocytes # (Auto) 0.5x10^3/uL (0.0-1.1) Eosinophils # (Auto) 0.0x10^3/uL (0.0-0.7) Basophils # (Auto) 0.0x10^3/uL (0.0-0.2) Sodium Level 159mmol/L (136-145) Potassium Level 3.8mmol/L (3.5-5.1) Chloride Level 117mmol/L (98-107) Carbon Dioxide Level 42mmol/L (21-32) Anion Gap 0 (6-14) Blood Urea Nitrogen 42mg/dL (8-26) Creatinine 1.0mg/dL (0.7-1.3) Estimated GFR (Cockcroft-Gault) 88.6 BUN/Creatinine Ratio 42 (6-20) Glucose Level 207mg/dL (70-99) Calcium Level 8.4mg/dL (8.5-10.1) Magnesium Level 2.3mg/dL (1.8-2.4) Total Bilirubin 0.3mg/dL (0.2-1.0) Aspartate Amino Transf (AST/SGOT) 251U/L (15-37) Alanine Aminotransferase (ALT/SGPT) 1179U/L (16-63) Alkaline Phosphatase 22U/L (46-116) Total Protein 4.8g/dL (6.4-8.2) Albumin 1.8g/dL (3.4-5.0) Albumin/Globulin Ratio 0.6 (1.0-1.7) Medications Active Scripts Medications Dose Route/Sig Days Date Category Dose Instructions Morphine Sulfate 10 Mg/0.5 Ml Disp.syrin 5 Mg PO PRN Q3HRS PRN 11/11/16 Reported Duoneb 0.5-3(2.5) Mg/3 Ml (Albuterol/Ipratropium) 3 Ml Ampul.neb 3 Ml NEB PRN Q2HR PRN 11/11/16 Reported Prilosec (Omeprazole Magnesium) 10 Mg Suspdr.pkt 20 Mg PO DAILY 11/11/16 Reported Meloxicam 15 Mg Tablet 1 Tab PO DAILY 11/11/16 Reported Norvasc (Amlodipine Besylate) 5 Mg Tablet 1 Tab PO DAILY 12/19/16 Reported Miralax (Polyethylene Glycol 3350) 17 Gm Powd.pack 1 Packet PO DAILY PRN 11/11/16 Reported Symbicort 160-4.5 Mcg Inhaler (Budesonide/Formoterol Fumarate) 10.2 Gm Hfa.aer.ad 2 Puff IH BID 11/11/16 Reported Cardizem Tablet (Diltiazem Hcl) 30 Mg Tablet 300 Mg PO DAILY 11/11/16 Reported Spironolactone 25 Mg Tablet 1 Tab PO DAILY 11/11/16 Reported Prednisone 10 Mg Tablet 10 Mg PO UD 11/11/16 Reported Take 3 tablets by mouth twice a day for 3 days, then take 2 tablets by mouth twice a day for 3 days, then take 1 tablet by mouth twice a day for 3 days, then take 1 tablet by mouth daily x 3 days, then stop. Oxycodone Hcl 20 Mg Tablet 20 Mg PO PRN QID PRN 06/13/16 Reported Bisacodyl 5 Mg Tablet.dr 5 Mg PO DAILY06 06/13/16 Reported Clonidine Hcl 0.3 Mg Tablet 0.3 Mg PO TID 12/28/13 Reported Comments cxr 11/15 improving infiltrates Impression . 1. Niekq-jh-ufrbxhq hypercapnic and hypoxic respiratory failure secondary possible gram pos and gram negative pneumonia and septic shock. 2. 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 3. Bgetk-jr-aqaszqm renal failure. 4. Severe protein-calorie malnutrition. 5. Bilateral infiltrates consistent with pneumonia. 6. Recent echo with normal ejection fraction. 7. Septic shock off pressors Plan . will start CPAP trial today off propofol will continue support for now prn free water per PCP repeat ABG later today on CPAP antibx off pressors tube feeding DVT and GI proph d/w RN/RT JOHN BAIRES MD Nov 15, 2016 10:48
[2016-11-15] MEDS ORDERED: POTASSIUM CL 20MEQ D5-0.45NACL 1,000 ML IV ONE (11:15)
[2016-11-15 12:14] LABS: HCO3 ABG 44 mmol/L (21-28); PH ABG 7.33 (7.35-7.45); PO2 ABG 65 mmHg (65-108); SAT O2 ABG 91 % (92-99)
[2016-11-15 12:15] LABS: PCO2 ABG 85 mmHg (35-46)
[2016-11-15 12:16] LABS: FIO2 ABG 40
--- NOTE | 2016-11-15 12:57 | PDOC ---
Provider Note Provider Note renal fx better w/ ivf- LFTs better after shock liver less- still full vent, cxr better- dpoa is not here, he is more alert- cont same BRIAN KIM MD Nov 15, 2016 12:57
[2016-11-15] MEDS: ENOXAPARIN 40 MG/0.4 ML DISP.SYRIN. SQ SCH (13:01)
[2016-11-15] MEDS: VANCOMYCIN PER PHARMACY MC PRN ×2 (13:59→14:07)
[2016-11-15] MEDS: VANCOMYCIN 1 GM in IV NORMAL SALINE 250ML 250 ML IV SCH (14:35)
[2016-11-15] MEDS: INSULIN ASPART 300 UNITS/3 ML INSULN.PEN SQ SCH (17:00)
[2016-11-15] MEDS: PIPERACILLIN/TAZOBACTAM 4.5 GM in IV NORMAL SALINE 100ML 100 ML IV SCH (18:01)
[2016-11-15] MEDS: FAMOTIDINE 20 MG/2 ML VIAL IVP SCH (21:22)
[2016-11-16] VITALS (24 sets, daily range): BP systolic 92–153; BP diastolic 66–90
[2016-11-16] MEDS: PIPERACILLIN/TAZOBACTAM 4.5 GM in IV NORMAL SALINE 100ML 100 ML IV SCH ×4 (00:18→17:46)
[2016-11-16] MEDS: VANCOMYCIN 1 GM in IV NORMAL SALINE 250ML 250 ML IV SCH ×2 (02:39→16:06)
[2016-11-16] MEDS: HYDROCORTISONE SOD SUCC/PF 100 MG/2 ML VIAL. IV SCH ×3 (05:58→21:41)
[2016-11-16 06:06] LABS: BASO # 0.1 x10^3/uL (0.0-0.2); BASO % 0 % (0-3); EOS % 0 % (0-3); HEMATOCRIT 35.9 % (39.0-53.0); HEMOGLOBIN 11.3 g/dL (13.0-17.5); LYMPH # 0.8 x10^3/uL (1.0-4.8); LYMPH % 4 % (24-48); MEAN CORPUSCULAR HEMOGLOBIN 29 pg (25-35); MEAN CORPUSCULAR HGB CONC 32 g/dL (31-37); MEAN CORPUSCULAR VOLUME 90 fL (79-100); MONO % 3 % (0-9); NEUT % 93 % (31-73); PLATELET COUNT 105 x10^3/uL (140-400); RED BLOOD COUNT 3.98 x10^6/uL (4.30-5.70); RED CELL DISTRIBUTION WIDTH 13.6 % (11.5-14.5); WHITE BLOOD COUNT 21.4 x10^3/uL (4.0-11.0)
[2016-11-16 06:12] LABS: CALCIUM 8.4 mg/dL (8.5-10.1); CREATININE 0.9 mg/dL (0.7-1.3); GFR 100.1
[2016-11-16] MEDS: POTASSIUM CL 20MEQ D5-0.45NACL 1,000 ML IV SCH ×2 (06:40→21:42)
[2016-11-16] MEDS: IPRATRPIUM/ALBUTEROL 0.5/2.5MG 3 ML NEBU. NEB SCH ×4 (08:32→20:07)
[2016-11-16 08:46] LABS: HCO3 ABG 40 mmol/L (21-28); PO2 ABG 81 mmHg (65-108); SAT O2 ABG 95 % (92-99)
[2016-11-16] MEDS: VANCOMYCIN PER PHARMACY MC PRN (08:47)
[2016-11-16 08:53] LABS: FIO2 ABG 40; PCO2 ABG 67 mmHg (35-46)
[2016-11-16] MEDS: CHLORHEXIDINE 0.12% 15 ML MOUTHWASH. MM SCH ×2 (08:53→21:40)
--- NOTE | 2016-11-16 10:01 | RAD ---
Exam: AP portable chest. History: PICC line placement. Comparison: Chest radiograph 2 minutes earlier. Findings: Lung bases are excluded from the examination. Endotracheal tube tip projects 4 cm above the stiven. Esophagogastric tube is present with tip not seen. Right-sided PICC line has apparently been retracted with the tip projecting at the confluence of the brachiocephalic veins and superior vena cava. Emphysematous changes of lungs are seen. No pneumothorax or large pleural effusion is seen. No focal elevation appreciated. Impression: 1. No acute cardiopulmonary process. 2. Adjustment of right-sided PICC line with tip now projecting at the confluence of the brachiocephalic veins and superior vena cava.
--- NOTE | 2016-11-16 10:02 | RAD ---
Exam: AP portable chest. History: PICC line placement. Comparison: 11/15/2016. Findings: Lung bases have been excluded from examination. Endotracheal tube tip projects 6 cm by the stiven. Esophagogastric tube is present with tip not seen. No pneumothorax or large pleural effusion is identified. No focal consolidation is seen. There has been interval placement of right-sided PICC line with tip projecting at the mid superior vena cava. Impression: 1. No acute cardiopulmonary process. 2. Right-sided PICC line tip projects at the mid superior vena cava.
[2016-11-16] MEDS: INSULIN ASPART 300 UNITS/3 ML INSULN.PEN SQ SCH ×3 (10:06→17:00)
[2016-11-16] MEDS: ENOXAPARIN 40 MG/0.4 ML DISP.SYRIN. SQ SCH (12:00)
--- NOTE | 2016-11-16 12:13 | PDOC ---
PULMONARY PROGRESS NOTES Subjective awake, on AC mode Failed CPAP yesterday with worsening hypercapnia Vitals Vital Signs Date Time Temp Pulse Resp B/P Pulse Ox O2 Delivery O2 Flow Rate FiO2 11/16/16 08:32 96 Ventilator 11/16/16 07:00 99 32 116/72 11/16/16 04:00 99.0 99.0 General: No acute distress Lungs: Other (decrease bs) Cardiovascular: S1, S2 Abdomen: Soft, Non-tender Extremities: No Edema Skin: Warm, Dry Labs Laboratory Tests Test 11/14/16 14:30 11/15/16 06:00 11/15/16 07:15 11/15/16 12:05 O2 Saturation 93% (92-99) 93% (92-99) 91% (92-99) Arterial Blood pH 7.36 (7.35-7.45) 7.37 (7.35-7.45) 7.33 (7.35-7.45) Arterial Blood pCO2 at Patient Temp 72mmHg (35-46) 71mmHg (35-46) 85mmHg (35-46) Arterial Blood pO2 at Patient Temp 66mmHg (65-108) 69mmHg (65-108) 65mmHg (65-108) Arterial Blood HCO3 40mmol/L (21-28) 40mmol/L (21-28) 44mmol/L (21-28) Arterial Blood Base Excess 12mmol/L (-3-3) 12mmol/L (-3-3) 14mmol/L (-3-3) FiO2 40 40 40 White Blood Count 18.0x10^3/uL (4.0-11.0) Red Blood Count 3.81x10^6/uL (4.30-5.70) Hemoglobin 10.9g/dL (13.0-17.5) Hematocrit 35.4% (39.0-53.0) Mean Corpuscular Volume 93fL (79-100) Mean Corpuscular Hemoglobin 29pg (25-35) Mean Corpuscular Hemoglobin Concent 31g/dL (31-37) Red Cell Distribution Width 13.7% (11.5-14.5) Platelet Count 99x10^3/uL (140-400) Neutrophils (%) (Auto) 93% (31-73) Lymphocytes (%) (Auto) 4% (24-48) Monocytes (%) (Auto) 3% (0-9) Eosinophils (%) (Auto) 0% (0-3) Basophils (%) (Auto) 0% (0-3) Neutrophils # (Auto) 16.8x10^3uL (1.8-7.7) Lymphocytes # (Auto) 0.7x10^3/uL (1.0-4.8) Monocytes # (Auto) 0.5x10^3/uL (0.0-1.1) Eosinophils # (Auto) 0.0x10^3/uL (0.0-0.7) Basophils # (Auto) 0.0x10^3/uL (0.0-0.2) Sodium Level 159mmol/L (136-145) Potassium Level 3.8mmol/L (3.5-5.1) Chloride Level 117mmol/L (98-107) Carbon Dioxide Level 42mmol/L (21-32) Anion Gap 0 (6-14) Blood Urea Nitrogen 42mg/dL (8-26) Creatinine 1.0mg/dL (0.7-1.3) Estimated GFR (Cockcroft-Gault) 88.6 BUN/Creatinine Ratio 42 (6-20) Glucose Level 207mg/dL (70-99) Calcium Level 8.4mg/dL (8.5-10.1) Magnesium Level 2.3mg/dL (1.8-2.4) Total Bilirubin 0.3mg/dL (0.2-1.0) Aspartate Amino Transf (AST/SGOT) 251U/L (15-37) Alanine Aminotransferase (ALT/SGPT) 1179U/L (16-63) Alkaline Phosphatase 22U/L (46-116) Total Protein 4.8g/dL (6.4-8.2) Albumin 1.8g/dL (3.4-5.0) Albumin/Globulin Ratio 0.6 (1.0-1.7) Test 11/15/16 13:23 11/15/16 17:13 11/16/16 05:50 11/16/16 08:30 Vancomycin Level Trough 12.8mcg/mL (10.0-20.0) Vancomycin Last Dose Date 11/15/2016 Vancomycin Last Dose Time 0200 Glucose (Fingerstick) 131mg/dL (70-99) White Blood Count 21.4x10^3/uL (4.0-11.0) Red Blood Count 3.98x10^6/uL (4.30-5.70) Hemoglobin 11.3g/dL (13.0-17.5) Hematocrit 35.9% (39.0-53.0) Mean Corpuscular Volume 90fL (79-100) Mean Corpuscular Hemoglobin 29pg (25-35) Mean Corpuscular Hemoglobin Concent 32g/dL (31-37) Red Cell Distribution Width 13.6% (11.5-14.5) Platelet Count 105x10^3/uL (140-400) Neutrophils (%) (Auto) 93% (31-73) Lymphocytes (%) (Auto) 4% (24-48) Monocytes (%) (Auto) 3% (0-9) Eosinophils (%) (Auto) 0% (0-3) Basophils (%) (Auto) 0% (0-3) Neutrophils # (Auto) 20.0x10^3uL (1.8-7.7) Lymphocytes # (Auto) 0.8x10^3/uL (1.0-4.8) Monocytes # (Auto) 0.6x10^3/uL (0.0-1.1) Eosinophils # (Auto) 0.0x10^3/uL (0.0-0.7) Basophils # (Auto) 0.1x10^3/uL (0.0-0.2) Sodium Level 157mmol/L (136-145) Potassium Level 4.0mmol/L (3.5-5.1) Chloride Level 114mmol/L (98-107) Carbon Dioxide Level 43mmol/L (21-32) Anion Gap 0 (6-14) Blood Urea Nitrogen 33mg/dL (8-26) Creatinine 0.9mg/dL (0.7-1.3) Estimated GFR (Cockcroft-Gault) 100.1 Glucose Level 172mg/dL (70-99) Calcium Level 8.4mg/dL (8.5-10.1) O2 Saturation 95% (92-99) Arterial Blood pH 7.40 (7.35-7.45) Arterial Blood pCO2 at Patient Temp 67mmHg (35-46) Arterial Blood pO2 at Patient Temp 81mmHg (65-108) Arterial Blood HCO3 40mmol/L (21-28) Arterial Blood Base Excess 12mmol/L (-3-3) FiO2 40 Laboratory Tests Test 11/15/16 13:23 11/15/16 17:13 11/16/16 05:50 11/16/16 08:30 Vancomycin Level Trough 12.8mcg/mL (10.0-20.0) Vancomycin Last Dose Date 11/15/2016 Vancomycin Last Dose Time 0200 Glucose (Fingerstick) 131mg/dL (70-99) White Blood Count 21.4x10^3/uL (4.0-11.0) Red Blood Count 3.98x10^6/uL (4.30-5.70) Hemoglobin 11.3g/dL (13.0-17.5) Hematocrit 35.9% (39.0-53.0) Mean Corpuscular Volume 90fL (79-100) Mean Corpuscular Hemoglobin 29pg (25-35) Mean Corpuscular Hemoglobin Concent 32g/dL (31-37) Red Cell Distribution Width 13.6% (11.5-14.5) Platelet Count 105x10^3/uL (140-400) Neutrophils (%) (Auto) 93% (31-73) Lymphocytes (%) (Auto) 4% (24-48) Monocytes (%) (Auto) 3% (0-9) Eosinophils (%) (Auto) 0% (0-3) Basophils (%) (Auto) 0% (0-3) Neutrophils # (Auto) 20.0x10^3uL (1.8-7.7) Lymphocytes # (Auto) 0.8x10^3/uL (1.0-4.8) Monocytes # (Auto) 0.6x10^3/uL (0.0-1.1) Eosinophils # (Auto) 0.0x10^3/uL (0.0-0.7) Basophils # (Auto) 0.1x10^3/uL (0.0-0.2) Sodium Level 157mmol/L (136-145) Potassium Level 4.0mmol/L (3.5-5.1) Chloride Level 114mmol/L (98-107) Carbon Dioxide Level 43mmol/L (21-32) Anion Gap 0 (6-14) Blood Urea Nitrogen 33mg/dL (8-26) Creatinine 0.9mg/dL (0.7-1.3) Estimated GFR (Cockcroft-Gault) 100.1 Glucose Level 172mg/dL (70-99) Calcium Level 8.4mg/dL (8.5-10.1) O2 Saturation 95% (92-99) Arterial Blood pH 7.40 (7.35-7.45) Arterial Blood pCO2 at Patient Temp 67mmHg (35-46) Arterial Blood pO2 at Patient Temp 81mmHg (65-108) Arterial Blood HCO3 40mmol/L (21-28) Arterial Blood Base Excess 12mmol/L (-3-3) FiO2 40 Medications Active Scripts Medications Dose Route/Sig Days Date Category Dose Instructions Morphine Sulfate 10 Mg/0.5 Ml Disp.syrin 5 Mg PO PRN Q3HRS PRN 11/11/16 Reported Duoneb 0.5-3(2.5) Mg/3 Ml (Albuterol/Ipratropium) 3 Ml Ampul.neb 3 Ml NEB PRN Q2HR PRN 11/11/16 Reported Prilosec (Omeprazole Magnesium) 10 Mg Suspdr.pkt 20 Mg PO DAILY 11/11/16 Reported Meloxicam 15 Mg Tablet 1 Tab PO DAILY 11/11/16 Reported Norvasc (Amlodipine Besylate) 5 Mg Tablet 1 Tab PO DAILY 11/11/16 Reported Miralax (Polyethylene Glycol 3350) 17 Gm Powd.pack 1 Packet PO DAILY PRN 11/11/16 Reported Symbicort 160-4.5 Mcg Inhaler (Budesonide/Formoterol Fumarate) 10.2 Gm Hfa.aer.ad 2 Puff IH BID 11/11/16 Reported Cardizem Tablet (Diltiazem Hcl) 30 Mg Tablet 300 Mg PO DAILY 11/11/16 Reported Spironolactone 25 Mg Tablet 1 Tab PO DAILY 11/11/16 Reported Prednisone 10 Mg Tablet 10 Mg PO UD 11/11/16 Reported Take 3 tablets by mouth twice a day for 3 days, then take 2 tablets by mouth twice a day for 3 days, then take 1 tablet by mouth twice a day for 3 days, then take 1 tablet by mouth daily x 3 days, then stop. Oxycodone Hcl 20 Mg Tablet 20 Mg PO PRN QID PRN 06/13/16 Reported Bisacodyl 5 Mg Tablet.dr 5 Mg PO DAILY06 06/13/16 Reported Clonidine Hcl 0.3 Mg Tablet 0.3 Mg PO TID 12/28/13 Reported Comments cxr 11/16 resolved infiltrates Impression . 1. Ifgte-zt-eqiothp hypercapnic and hypoxic respiratory failure secondary possible gram pos and gram negative pneumonia and septic shock. resolved 2. 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 3. Obsix-mk-eduttwk renal failure. 4. Severe protein-calorie malnutrition. 5. Bilateral infiltrates consistent with pneumonia. resolve by CXR 6. Recent echo with normal ejection fraction. 7. Septic shock off pressors Plan . Failed CPAP trial 11/16 with worsening hypercapnia will try again I doubt that he could sustain ventilation on his own anymore off propofol will continue support for now repeat ABG later today on CPAP antibx per ID off pressors tube feeding DVT and GI proph d/w RN/RT will d/w family next week. If they desire to continue aggressive care, then he will need tracheostomy/ PEG/ [facility] JOHN BAIRES MD Nov 16, 2016 12:13
[2016-11-16 14:06] LABS: HCO3 ABG 38 mmol/L (21-28); PH ABG 7.38 (7.35-7.45); PO2 ABG 63 mmHg (65-108); SAT O2 ABG 91 % (92-99)
[2016-11-16 14:10] LABS: FIO2 ABG 40; PCO2 ABG 65 mmHg (35-46)
--- NOTE | 2016-11-16 18:07 | PDOC ---
GENERAL General: vss and afebrile. awake and alert and wanting a drink on vent at 40% FiO2 and peep of 5 and off propafol on a breathing trial. Sodium still quite elevated but improved and feel he is dry. getting tube feedings and water flushes and will recheck in am. wbc increased to 21 K with cxr clear of infiltrates poa. continue supportive care. Problems: VITAL SIGNS Vital Signs: Vital Signs Date Time Temp Pulse Resp B/P Pulse Ox O2 Delivery O2 Flow Rate FiO2 11/16/16 16:00 Mechanical Ventilator 11/16/16 15:41 94 11/16/16 07:00 99 32 116/72 11/16/16 04:00 99.0 99.0 I & O I & O Intake and Output 11/16/16 06:59 Intake Total 6028 ml Output Total 1600 ml Balance 4428 ml Intake IV Total 1720 ml Tube Feeding 2690 ml Other 1618 ml Output Urine Total 1600 ml # Bowel Movements 1 ALLERGIES Allergies: Allergies Coded Allergies Type Severity Reaction Last Updated Verified lisinopril Allergy Intermediate 06/11/16 Yes MEDS Medications: Current Medications Medications (Trade) Dose Ordered Sig/Pierre Start Time Stop Time Status Last Admin Dose Admin Acetaminophen (Tylenol) 650 mg PRN Q4HRS PRN 11/11/16 10:30 11/12/16 10:29 DC 11/11/16 21:53 650 MG Albuterol Sulfate (Ventolin Neb Soln) 2.5 mg 1X ONCE 11/11/16 10:15 11/11/16 10:17 DC Albuterol/ Ipratropium (Duoneb) 3 ml RTQID 11/12/16 17:00 11/16/16 15:40 3 ML Calcium Chloride/ Sodium Chloride (Iv Sodium Chloride 0.9% 50ml) 60 ml @ 120 mls/hr 1X ONCE 11/11/16 10:30 11/11/16 10:59 DC 11/11/16 10:55 120 MLS/HR Chlorhexidine Gluconate (Peridex) 15 ml BID 11/11/16 21:00 11/16/16 08:53 15 ML Dextrose 25 gm 1X ONCE 11/11/16 10:15 11/11/16 10:17 DC 11/11/16 10:55 25 GM Dextrose 12.5 gm 12.5 gm PRN Q15MIN PRN 11/15/16 12:45 Enoxaparin Sodium (Lovenox 30mg Syringe) 30 mg Q24H 11/11/16 12:00 11/13/16 09:13 DC 11/12/16 12:15 30 MG Enoxaparin Sodium 40 mg 40 mg Q24H 11/13/16 12:00 11/16/16 12:00 40 MG Etomidate (Amidate) 20 mg 1X ONCE 11/11/16 08:45 11/11/16 08:46 DC 11/11/16 08:45 20 MG Famotidine (Pepcid) 20 mg BID 11/11/16 21:00 11/11/16 21:00 DC Famotidine 20 mg 20 mg QHS 11/11/16 21:00 11/15/16 21:22 20 MG Fentanyl Citrate (Fentanyl 2ml Vial) 50 mcg PRN Q1HR PRN 11/11/16 08:45 Fentanyl Citrate (Fentanyl 600 Mcg/30 ml [employer]) 30 ml @ 0 mls/hr CONT PRN 11/11/16 08:45 Hydrocortisone Sodium Succinate (Solu-Cortef) 100 mg Q8HRS 11/11/16 14:00 11/16/16 16:05 100 MG Insulin Aspart (Novolog) 0-7 UNITS TIDWMEALS 11/15/16 17:00 11/16/16 10:06 3 UNITS Insulin Human Regular 10 unit 10 unit 1X ONCE 11/11/16 10:15 11/11/16 10:17 DC 11/11/16 11:28 10 UNIT Levofloxacin/ Dextrose 150 ml @ 100 mls/hr Q24H 11/16/16 10:00 11/16/16 10:18 100 MLS/HR Levofloxacin/ Dextrose 1 each 1 each PRN DAILY PRN 11/11/16 09:30 Midazolam HCl (Versed 100mg/ 100ml Premix) 100 ml @ 0 mls/hr CONT PRN 11/11/16 08:45 11/12/16 23:36 3 MLS/HR Midazolam HCl 1 mg 1 mg PRN Q30MIN PRN 11/11/16 08:45 11/11/16 09:15 1 MG Midazolam HCl 5 mg 5 mg STK-MED ONCE 11/11/16 11:15 11/11/16 11:16 DC Morphine Sulfate 4 mg PRN Q1HR PRN 12/19/16 08:45 Norepinephrine Bitartrate (Levophed 8mg/ 250ml Premix Drip) 250 ml @ 0 mls/hr CONT PRN 11/11/16 13:30 11/11/16 17:08 37.5 MLS/HR Ondansetron HCl (Zofran) 4 mg PRN Q8HRS PRN 11/11/16 10:30 11/12/16 10:29 DC Piperacillin Sod/ Tazobactam Sod (Zosyn Per Pharmacy) 1 each PRN DAILY PRN 11/11/16 09:30 Piperacillin Sod/ Tazobactam Sod 4.5 gm/Sodium Chloride 100 ml @ 200 mls/hr Q6HRS 11/15/16 18:00 11/16/16 17:46 200 MLS/HR Piperacillin Sod/ Tazobactam Sod/ Sodium Chloride (Zosyn/Iv Sodium Chloride 0.9% 50ml) 50 ml @ 100 mls/hr Q6HRS 11/11/16 18:00 11/15/16 14:03 DC 11/15/16 12:58 100 MLS/HR Potassium Chloride/Dextrose/ Sod Cl (KCl 20 Meq In D5W-1/2 NS) 1,000 ml @ 80 mls/hr [id number] 11/16/16 07:00 11/16/16 06:40 80 MLS/HR Potassium Chloride/Dextrose/ Sod Cl (KCl 20 Meq In D5W-NS) 1,000 ml @ 75 mls/hr [id number] 11/14/16 09:45 11/15/16 11:12 DC 11/15/16 03:57 75 MLS/HR Propofol (Diprivan) 100 ml @ 0 mls/hr CONT PRN 11/14/16 10:45 Sodium Polystyrene Sulfonate 30 gm 30 gm 1X ONCE 11/11/16 17:45 11/11/16 17:46 DC 11/11/16 18:13 30 GM Sodium Chloride (Iv Sodium Chloride 0.9% 1000ml Bag) 1,000 ml @ 100 mls/hr Q10H 11/11/16 17:45 11/13/16 21:27 DC 11/12/16 23:36 100 MLS/HR Sodium Chloride (Normal Saline Flush) 20 ml PRN Q5MIN PRN 11/15/16 10:00 Succinylcholine Chloride 100 mg 100 mg 1X ONCE 11/11/16 08:45 11/11/16 08:46 DC 11/11/16 08:45 100 MG Vancomycin HCl (Vanco Per Pharmacy) 1 each PRN DAILY PRN 11/11/16 09:30 11/16/16 08:47 1 EACH Vancomycin HCl 1.25 gm/Sodium Chloride 250 ml @ 166.667 mls/hr 1X ONCE 11/11/16 09:45 11/11/16 11:14 DC 11/11/16 10:54 166.667 MLS/HR Vancomycin HCl 750 mg/Sodium Chloride 250 ml @ 250 mls/hr Q12H 11/13/16 14:00 11/15/16 13:58 DC 11/15/16 02:38 250 MLS/HR Vancomycin HCl 1 each 1 each 1X ONCE 11/15/16 13:30 11/15/16 13:31 DC 11/15/16 13:30 1 EACH Vancomycin HCl 1 gm/Sodium Chloride 250 ml @ 250 mls/hr Q12H 11/15/16 14:00 11/16/16 16:06 250 MLS/HR Vancomycin HCl/ Sodium Chloride (Iv Sodium Chloride 0.9% 250ml) 250 ml @ 250 mls/hr Q24H 11/12/16 11:00 11/13/16 13:07 DC 11/12/16 10:57 250 MLS/HR LAB Lab: Laboratory Tests Test 11/16/16 05:50 11/16/16 08:30 11/16/16 12:48 11/16/16 14:00 White Blood Count 21.4x10^3/uL (4.0-11.0) Red Blood Count 3.98x10^6/uL (4.30-5.70) Hemoglobin 11.3g/dL (13.0-17.5) Hematocrit 35.9% (39.0-53.0) Mean Corpuscular Volume 90fL (79-100) Mean Corpuscular Hemoglobin 29pg (25-35) Mean Corpuscular Hemoglobin Concent 32g/dL (31-37) Red Cell Distribution Width 13.6% (11.5-14.5) Platelet Count 105x10^3/uL (140-400) Neutrophils (%) (Auto) 93% (31-73) Lymphocytes (%) (Auto) 4% (24-48) Monocytes (%) (Auto) 3% (0-9) Eosinophils (%) (Auto) 0% (0-3) Basophils (%) (Auto) 0% (0-3) Neutrophils # (Auto) 20.0x10^3uL (1.8-7.7) Lymphocytes # (Auto) 0.8x10^3/uL (1.0-4.8) Monocytes # (Auto) 0.6x10^3/uL (0.0-1.1) Eosinophils # (Auto) 0.0x10^3/uL (0.0-0.7) Basophils # (Auto) 0.1x10^3/uL (0.0-0.2) Sodium Level 157mmol/L (136-145) Potassium Level 4.0mmol/L (3.5-5.1) Chloride Level 114mmol/L (98-107) Carbon Dioxide Level 43mmol/L (21-32) Anion Gap 0 (6-14) Blood Urea Nitrogen 33mg/dL (8-26) Creatinine 0.9mg/dL (0.7-1.3) Estimated GFR (Cockcroft-Gault) 100.1 Glucose Level 172mg/dL (70-99) Calcium Level 8.4mg/dL (8.5-10.1) O2 Saturation 95% (92-99) 91% (92-99) Arterial Blood pH 7.40 (7.35-7.45) 7.38 (7.35-7.45) Arterial Blood pCO2 at Patient Temp 67mmHg (35-46) 65mmHg (35-46) Arterial Blood pO2 at Patient Temp 81mmHg (65-108) 63mmHg (65-108) Arterial Blood HCO3 40mmol/L (21-28) 38mmol/L (21-28) Arterial Blood Base Excess 12mmol/L (-3-3) 10mmol/L (-3-3) FiO2 40 40 Glucose (Fingerstick) 137mg/dL (70-99) VIOLET MORTON MD Nov 16, 2016 18:07
[2016-11-16] MEDS: FAMOTIDINE 20 MG/2 ML VIAL IVP SCH (21:41)
[2016-11-17] VITALS (24 sets, daily range): BP systolic 99–154; BP diastolic 56–89
[2016-11-17] MEDS: PIPERACILLIN/TAZOBACTAM 4.5 GM in IV NORMAL SALINE 100ML 100 ML IV SCH ×3 (00:05→10:57)
[2016-11-17] MEDS: PROPOFOL 100 ML IV PRN ×2 (00:06→17:49)
[2016-11-17] MEDS: VANCOMYCIN 1 GM in IV NORMAL SALINE 250ML 250 ML IV SCH (02:13)
[2016-11-17 05:18] LABS: BASO # 0.1 x10^3/uL (0.0-0.2); BASO % 0 % (0-3); EOS % 0 % (0-3); HEMATOCRIT 32.1 % (39.0-53.0); LYMPH # 0.6 x10^3/uL (1.0-4.8); LYMPH % 3 % (24-48); MEAN CORPUSCULAR HEMOGLOBIN 29 pg (25-35); MEAN CORPUSCULAR HGB CONC 31 g/dL (31-37); MEAN CORPUSCULAR VOLUME 93 fL (79-100); MONO % 2 % (0-9); NEUT % 95 % (31-73); PLATELET COUNT 93 x10^3/uL (140-400); RED BLOOD COUNT 3.44 x10^6/uL (4.30-5.70); RED CELL DISTRIBUTION WIDTH 13.8 % (11.5-14.5); WHITE BLOOD COUNT 19.7 x10^3/uL (4.0-11.0)
[2016-11-17 05:48] LABS: ALBUMIN 1.6 g/dL (3.4-5.0); ALBUMIN/GLOBULIN RATIO 0.6 (1.0-1.7); CALCIUM 7.2 mg/dL (8.5-10.1); CREATININE 0.7 mg/dL (0.7-1.3); GFR 133.8; TOTAL BILIRUBIN 0.4 mg/dL (0.2-1.0); TOTAL PROTEIN 4.2 g/dL (6.4-8.2)
[2016-11-17 05:51] LABS: POTASSIUM 4.9 mmol/L (3.5-5.1)
[2016-11-17] MEDS: HYDROCORTISONE SOD SUCC/PF 100 MG/2 ML VIAL. IV SCH ×3 (05:51→21:43)
[2016-11-17 07:42] LABS: BASO # 0.3 x10^3/uL (0.0-0.2); BASO % 1 % (0-3); EOS % 0 % (0-3); HEMATOCRIT 34.2 % (39.0-53.0); HEMOGLOBIN 10.7 g/dL (13.0-17.5); LYMPH # 0.4 x10^3/uL (1.0-4.8); LYMPH % 2 % (24-48); MEAN CORPUSCULAR HEMOGLOBIN 29 pg (25-35); MEAN CORPUSCULAR HGB CONC 31 g/dL (31-37); MEAN CORPUSCULAR VOLUME 92 fL (79-100); MONO % 2 % (0-9); NEUT % 95 % (31-73); PLATELET COUNT 95 x10^3/uL (140-400); RED BLOOD COUNT 3.73 x10^6/uL (4.30-5.70); RED CELL DISTRIBUTION WIDTH 13.6 % (11.5-14.5); WHITE BLOOD COUNT 21.4 x10^3/uL (4.0-11.0)
[2016-11-17 08:02] LABS: ALBUMIN 1.8 g/dL (3.4-5.0); ALBUMIN/GLOBULIN RATIO 0.8 (1.0-1.7); CALCIUM 7.9 mg/dL (8.5-10.1); CREATININE 0.8 mg/dL (0.7-1.3); GFR 114.7; POTASSIUM 3.3 mmol/L (3.5-5.1); TOTAL BILIRUBIN 0.4 mg/dL (0.2-1.0); TOTAL PROTEIN 4.2 g/dL (6.4-8.2)
[2016-11-17] MEDS: IPRATRPIUM/ALBUTEROL 0.5/2.5MG 3 ML NEBU. NEB SCH ×4 (08:21→19:14)
[2016-11-17 08:32] LABS: HCO3 ABG 38 mmol/L (21-28); PCO2 ABG 57 mmHg (35-46); PH ABG 7.45 (7.35-7.45); PO2 ABG 71 mmHg (65-108); SAT O2 ABG 94 % (92-99)
[2016-11-17 08:34] LABS: FIO2 ABG 40
[2016-11-17] MEDS: INSULIN ASPART 300 UNITS/3 ML INSULN.PEN SQ SCH ×3 (08:49→17:00)
[2016-11-17] MEDS: CHLORHEXIDINE 0.12% 15 ML MOUTHWASH. MM SCH ×2 (08:49→21:43)
--- NOTE | 2016-11-17 10:45 | RAD ---
Exam: AP portable chest. History: Minimally to patient. Comparison: 11/16/2016. Findings: Right-sided PICC line is unchanged. Endotracheal tube tip projects 5 cm above the stiven. Esophagogastric tube is present with the tip projecting at the fundus of the stomach. Right apex has been excluded from the examination. The heart and mediastinal structures are within normal limits for size. Lungs are without infiltrate. Emphysematous changes of lungs are seen. No pneumothorax or pleural effusion is appreciated. Impression: 1. No acute airspace disease identified.
--- NOTE | 2016-11-17 11:45 | PDOC ---
PULMONARY PROGRESS NOTES Subjective awake, on AC mode Did better on CPAP yesterday wants ET out Vitals Vital Signs Date Time Temp Pulse Resp B/P Pulse Ox O2 Delivery O2 Flow Rate FiO2 11/17/16 11:10 Ventilator 11/17/16 09:52 105 17 129/79 99 11/17/16 08:00 98.7 98.7 General: No acute distress Lungs: Other (decrease bs) Cardiovascular: S1, S2 Abdomen: Soft, Non-tender Extremities: No Edema Skin: Warm, Dry Labs Laboratory Tests Test 11/15/16 12:05 11/15/16 13:23 11/15/16 17:13 11/16/16 05:50 O2 Saturation 91% (92-99) Arterial Blood pH 7.33 (7.35-7.45) Arterial Blood pCO2 at Patient Temp 85mmHg (35-46) Arterial Blood pO2 at Patient Temp 65mmHg (65-108) Arterial Blood HCO3 44mmol/L (21-28) Arterial Blood Base Excess 14mmol/L (-3-3) FiO2 40 Vancomycin Level Trough 12.8mcg/mL (10.0-20.0) Vancomycin Last Dose Date 11/15/2016 Vancomycin Last Dose Time 0200 Glucose (Fingerstick) 131mg/dL (70-99) White Blood Count 21.4x10^3/uL (4.0-11.0) Red Blood Count 3.98x10^6/uL (4.30-5.70) Hemoglobin 11.3g/dL (13.0-17.5) Hematocrit 35.9% (39.0-53.0) Mean Corpuscular Volume 90fL (79-100) Mean Corpuscular Hemoglobin 29pg (25-35) Mean Corpuscular Hemoglobin Concent 32g/dL (31-37) Red Cell Distribution Width 13.6% (11.5-14.5) Platelet Count 105x10^3/uL (140-400) Neutrophils (%) (Auto) 93% (31-73) Lymphocytes (%) (Auto) 4% (24-48) Monocytes (%) (Auto) 3% (0-9) Eosinophils (%) (Auto) 0% (0-3) Basophils (%) (Auto) 0% (0-3) Neutrophils # (Auto) 20.0x10^3uL (1.8-7.7) Lymphocytes # (Auto) 0.8x10^3/uL (1.0-4.8) Monocytes # (Auto) 0.6x10^3/uL (0.0-1.1) Eosinophils # (Auto) 0.0x10^3/uL (0.0-0.7) Basophils # (Auto) 0.1x10^3/uL (0.0-0.2) Sodium Level 157mmol/L (136-145) Potassium Level 4.0mmol/L (3.5-5.1) Chloride Level 114mmol/L (98-107) Carbon Dioxide Level 43mmol/L (21-32) Anion Gap 0 (6-14) Blood Urea Nitrogen 33mg/dL (8-26) Creatinine 0.9mg/dL (0.7-1.3) Estimated GFR (Cockcroft-Gault) 100.1 Glucose Level 172mg/dL (70-99) Calcium Level 8.4mg/dL (8.5-10.1) Test 11/16/16 08:30 11/16/16 12:48 11/16/16 14:00 11/16/16 17:45 O2 Saturation 95% (92-99) 91% (92-99) Arterial Blood pH 7.40 (7.35-7.45) 7.38 (7.35-7.45) Arterial Blood pCO2 at Patient Temp 67mmHg (35-46) 65mmHg (35-46) Arterial Blood pO2 at Patient Temp 81mmHg (65-108) 63mmHg (65-108) Arterial Blood HCO3 40mmol/L (21-28) 38mmol/L (21-28) Arterial Blood Base Excess 12mmol/L (-3-3) 10mmol/L (-3-3) FiO2 40 40 Glucose (Fingerstick) 137mg/dL (70-99) 136mg/dL (70-99) Test 11/17/16 05:00 11/17/16 07:23 11/17/16 07:30 11/17/16 08:15 White Blood Count 19.7x10^3/uL (4.0-11.0) 21.4x10^3/uL (4.0-11.0) Red Blood Count 3.44x10^6/uL (4.30-5.70) 3.73x10^6/uL (4.30-5.70) Hemoglobin 10.0g/dL (13.0-17.5) 10.7g/dL (13.0-17.5) Hematocrit 32.1% (39.0-53.0) 34.2% (39.0-53.0) Mean Corpuscular Volume 93fL (79-100) 92fL (79-100) Mean Corpuscular Hemoglobin 29pg (25-35) 29pg (25-35) Mean Corpuscular Hemoglobin Concent 31g/dL (31-37) 31g/dL (31-37) Red Cell Distribution Width 13.8% (11.5-14.5) 13.6% (11.5-14.5) Platelet Count 93x10^3/uL (140-400) 95x10^3/uL (140-400) Neutrophils (%) (Auto) 95% (31-73) 95% (31-73) Lymphocytes (%) (Auto) 3% (24-48) 2% (24-48) Monocytes (%) (Auto) 2% (0-9) 2% (0-9) Eosinophils (%) (Auto) 0% (0-3) 0% (0-3) Basophils (%) (Auto) 0% (0-3) 1% (0-3) Neutrophils # (Auto) 18.7x10^3uL (1.8-7.7) 20.4x10^3uL (1.8-7.7) Lymphocytes # (Auto) 0.6x10^3/uL (1.0-4.8) 0.4x10^3/uL (1.0-4.8) Monocytes # (Auto) 0.4x10^3/uL (0.0-1.1) 0.3x10^3/uL (0.0-1.1) Eosinophils # (Auto) 0.0x10^3/uL (0.0-0.7) 0.0x10^3/uL (0.0-0.7) Basophils # (Auto) 0.1x10^3/uL (0.0-0.2) 0.3x10^3/uL (0.0-0.2) Sodium Level 148mmol/L (136-145) 151mmol/L (136-145) Potassium Level 4.9mmol/L (3.5-5.1) 3.3mmol/L (3.5-5.1) Chloride Level 109mmol/L (98-107) 109mmol/L (98-107) Carbon Dioxide Level 38mmol/L (21-32) 42mmol/L (21-32) Anion Gap 1 (6-14) 0 (6-14) Blood Urea Nitrogen 25mg/dL (8-26) 27mg/dL (8-26) Creatinine 0.7mg/dL (0.7-1.3) 0.8mg/dL (0.7-1.3) Estimated GFR (Cockcroft-Gault) 133.8 114.7 BUN/Creatinine Ratio 36 (6-20) 34 (6-20) Glucose Level 450mg/dL (70-99) 172mg/dL (70-99) Calcium Level 7.2mg/dL (8.5-10.1) 7.9mg/dL (8.5-10.1) Total Bilirubin 0.4mg/dL (0.2-1.0) 0.4mg/dL (0.2-1.0) Aspartate Amino Transf (AST/SGOT) 204U/L (15-37) 201U/L (15-37) Alanine Aminotransferase (ALT/SGPT) 889U/L (16-63) 960U/L (16-63) Alkaline Phosphatase 14U/L (46-116) 15U/L (46-116) Total Protein 4.2g/dL (6.4-8.2) 4.2g/dL (6.4-8.2) Albumin 1.6g/dL (3.4-5.0) 1.8g/dL (3.4-5.0) Albumin/Globulin Ratio 0.6 (1.0-1.7) 0.8 (1.0-1.7) Glucose (Fingerstick) 162mg/dL (70-99) O2 Saturation 94% (92-99) Arterial Blood pH 7.45 (7.35-7.45) Arterial Blood pCO2 at Patient Temp 57mmHg (35-46) Arterial Blood pO2 at Patient Temp 71mmHg (65-108) Arterial Blood HCO3 38mmol/L (21-28) Arterial Blood Base Excess 12mmol/L (-3-3) FiO2 40 Laboratory Tests Test 11/16/16 12:48 11/16/16 14:00 11/16/16 17:45 11/17/16 05:00 Glucose (Fingerstick) 137mg/dL (70-99) 136mg/dL (70-99) O2 Saturation 91% (92-99) Arterial Blood pH 7.38 (7.35-7.45) Arterial Blood pCO2 at Patient Temp 65mmHg (35-46) Arterial Blood pO2 at Patient Temp 63mmHg (65-108) Arterial Blood HCO3 38mmol/L (21-28) Arterial Blood Base Excess 10mmol/L (-3-3) FiO2 40 White Blood Count 19.7x10^3/uL (4.0-11.0) Red Blood Count 3.44x10^6/uL (4.30-5.70) Hemoglobin 10.0g/dL (13.0-17.5) Hematocrit 32.1% (39.0-53.0) Mean Corpuscular Volume 93fL (79-100) Mean Corpuscular Hemoglobin 29pg (25-35) Mean Corpuscular Hemoglobin Concent 31g/dL (31-37) Red Cell Distribution Width 13.8% (11.5-14.5) Platelet Count 93x10^3/uL (140-400) Neutrophils (%) (Auto) 95% (31-73) Lymphocytes (%) (Auto) 3% (24-48) Monocytes (%) (Auto) 2% (0-9) Eosinophils (%) (Auto) 0% (0-3) Basophils (%) (Auto) 0% (0-3) Neutrophils # (Auto) 18.7x10^3uL (1.8-7.7) Lymphocytes # (Auto) 0.6x10^3/uL (1.0-4.8) Monocytes # (Auto) 0.4x10^3/uL (0.0-1.1) Eosinophils # (Auto) 0.0x10^3/uL (0.0-0.7) Basophils # (Auto) 0.1x10^3/uL (0.0-0.2) Sodium Level 148mmol/L (136-145) Potassium Level 4.9mmol/L (3.5-5.1) Chloride Level 109mmol/L (98-107) Carbon Dioxide Level 38mmol/L (21-32) Anion Gap 1 (6-14) Blood Urea Nitrogen 25mg/dL (8-26) Creatinine 0.7mg/dL (0.7-1.3) Estimated GFR (Cockcroft-Gault) 133.8 BUN/Creatinine Ratio 36 (6-20) Glucose Level 450mg/dL (70-99) Calcium Level 7.2mg/dL (8.5-10.1) Total Bilirubin 0.4mg/dL (0.2-1.0) Aspartate Amino Transf (AST/SGOT) 204U/L (15-37) Alanine Aminotransferase (ALT/SGPT) 889U/L (16-63) Alkaline Phosphatase 14U/L (46-116) Total Protein 4.2g/dL (6.4-8.2) Albumin 1.6g/dL (3.4-5.0) Albumin/Globulin Ratio 0.6 (1.0-1.7) Test 11/17/16 07:23 11/17/16 07:30 11/17/16 08:15 Glucose (Fingerstick) 162mg/dL (70-99) White Blood Count 21.4x10^3/uL (4.0-11.0) Red Blood Count 3.73x10^6/uL (4.30-5.70) Hemoglobin 10.7g/dL (13.0-17.5) Hematocrit 34.2% (39.0-53.0) Mean Corpuscular Volume 92fL (79-100) Mean Corpuscular Hemoglobin 29pg (25-35) Mean Corpuscular Hemoglobin Concent 31g/dL (31-37) Red Cell Distribution Width 13.6% (11.5-14.5) Platelet Count 95x10^3/uL (140-400) Neutrophils (%) (Auto) 95% (31-73) Lymphocytes (%) (Auto) 2% (24-48) Monocytes (%) (Auto) 2% (0-9) Eosinophils (%) (Auto) 0% (0-3) Basophils (%) (Auto) 1% (0-3) Neutrophils # (Auto) 20.4x10^3uL (1.8-7.7) Lymphocytes # (Auto) 0.4x10^3/uL (1.0-4.8) Monocytes # (Auto) 0.3x10^3/uL (0.0-1.1) Eosinophils # (Auto) 0.0x10^3/uL (0.0-0.7) Basophils # (Auto) 0.3x10^3/uL (0.0-0.2) Sodium Level 151mmol/L (136-145) Potassium Level 3.3mmol/L (3.5-5.1) Chloride Level 109mmol/L (98-107) Carbon Dioxide Level 42mmol/L (21-32) Anion Gap 0 (6-14) Blood Urea Nitrogen 27mg/dL (8-26) Creatinine 0.8mg/dL (0.7-1.3) Estimated GFR (Cockcroft-Gault) 114.7 BUN/Creatinine Ratio 34 (6-20) Glucose Level 172mg/dL (70-99) Calcium Level 7.9mg/dL (8.5-10.1) Total Bilirubin 0.4mg/dL (0.2-1.0) Aspartate Amino Transf (AST/SGOT) 201U/L (15-37) Alanine Aminotransferase (ALT/SGPT) 960U/L (16-63) Alkaline Phosphatase 15U/L (46-116) Total Protein 4.2g/dL (6.4-8.2) Albumin 1.8g/dL (3.4-5.0) Albumin/Globulin Ratio 0.8 (1.0-1.7) O2 Saturation 94% (92-99) Arterial Blood pH 7.45 (7.35-7.45) Arterial Blood pCO2 at Patient Temp 57mmHg (35-46) Arterial Blood pO2 at Patient Temp 71mmHg (65-108) Arterial Blood HCO3 38mmol/L (21-28) Arterial Blood Base Excess 12mmol/L (-3-3) FiO2 40 Medications Active Scripts Medications Dose Route/Sig Days Date Category Dose Instructions Morphine Sulfate 10 Mg/0.5 Ml Disp.syrin 5 Mg PO PRN Q3HRS PRN 11/11/16 Reported Duoneb 0.5-3(2.5) Mg/3 Ml (Albuterol/Ipratropium) 3 Ml Ampul.neb 3 Ml NEB PRN Q2HR PRN 11/11/16 Reported Prilosec (Omeprazole Magnesium) 10 Mg Suspdr.pkt 20 Mg PO DAILY 11/11/16 Reported Meloxicam 15 Mg Tablet 1 Tab PO DAILY 11/11/16 Reported Norvasc (Amlodipine Besylate) 5 Mg Tablet 1 Tab PO DAILY 11/11/16 Reported Miralax (Polyethylene Glycol 3350) 17 Gm Powd.pack 1 Packet PO DAILY PRN 11/11/16 Reported Symbicort 160-4.5 Mcg Inhaler (Budesonide/Formoterol Fumarate) 10.2 Gm Hfa.aer.ad 2 Puff IH BID 11/11/16 Reported Cardizem Tablet (Diltiazem Hcl) 30 Mg Tablet 300 Mg PO DAILY 11/11/16 Reported Spironolactone 25 Mg Tablet 1 Tab PO DAILY 11/11/16 Reported Prednisone 10 Mg Tablet 10 Mg PO UD 11/11/16 Reported Take 3 tablets by mouth twice a day for 3 days, then take 2 tablets by mouth twice a day for 3 days, then take 1 tablet by mouth twice a day for 3 days, then take 1 tablet by mouth daily x 3 days, then stop. Oxycodone Hcl 20 Mg Tablet 20 Mg PO PRN QID PRN 06/13/16 Reported Bisacodyl 5 Mg Tablet.dr 5 Mg PO DAILY06 06/13/16 Reported Clonidine Hcl 0.3 Mg Tablet 0.3 Mg PO TID 12/28/13 Reported Comments cxr 11/17 resolved infiltrates Impression . 1. Ydldp-sv-abkcycs hypercapnic and hypoxic respiratory failure secondary possible gram pos and gram negative pneumonia and septic shock. resolved 2. 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 3. Vdwsy-ko-jpvxzvz renal failure. 4. Severe protein-calorie malnutrition. 5. Bilateral infiltrates consistent with pneumonia. resolve by CXR 6. Recent echo with normal ejection fraction. 7. Septic shock off pressors Plan . Failed CPAP trial 11/15 with worsening hypercapnia, did better 11/16 will try again for extended duration (6 hrs)/ check ABG I doubt that he could sustain ventilation on his own for longer period of time off propofol will continue support for now repeat ABG later today on CPAP antibx per ID off pressors tube feeding DVT and GI proph d/w RN/RT Pt wants ET out. Will re-address code status if extubated. will d/w family If they desire to continue aggressive care, then he will need tracheostomy/ PEG/ [facility] JOHN BAIRES MD Nov 17, 2016 11:45
[2016-11-17] MEDS: ENOXAPARIN 40 MG/0.4 ML DISP.SYRIN. SQ SCH (11:56)
--- NOTE | 2016-11-17 16:50 | PDOC ---
GENERAL General: vss and afebrile. In 5th hour of 6 hour weaning trial from vent and doing well so far. wants tube out as wide awake and alert. [id number] and Hb 10.7. two separate K+ drawn this am and 3.3/4.8 so will repeat in am and not treat. Na down to 151. LFT s stable to decreasing. chest with better breath sounds and heart slightly tachycardic. hopefully extubate this evening. Problems: VITAL SIGNS Vital Signs: Vital Signs Date Time Temp Pulse Resp B/P Pulse Ox O2 Delivery O2 Flow Rate FiO2 11/17/16 16:00 98.1 106 20 126/80 96 Ventilator 98.1 I & O I & O Intake and Output 11/17/16 06:59 Intake Total 6541 ml Output Total 1605 ml Balance 4936 ml Intake IV Total 700 ml Tube Feeding 2187 ml Other 3654 ml Output Urine Total 1605 ml ALLERGIES Allergies: Allergies Coded Allergies Type Severity Reaction Last Updated Verified lisinopril Allergy Intermediate 06/11/16 Yes MEDS Medications: Current Medications Medications (Trade) Dose Ordered Sig/Pierre Start Time Stop Time Status Last Admin Dose Admin Acetaminophen (Tylenol) 650 mg PRN Q4HRS PRN 11/11/16 10:30 11/12/16 10:29 DC 11/11/16 21:53 650 MG Albuterol Sulfate (Ventolin Neb Soln) 2.5 mg 1X ONCE 11/11/16 10:15 11/11/16 10:17 DC Albuterol/ Ipratropium (Duoneb) 3 ml RTQID 11/12/16 17:00 11/17/16 15:44 3 ML Calcium Chloride/ Sodium Chloride (Iv Sodium Chloride 0.9% 50ml) 60 ml @ 120 mls/hr 1X ONCE 11/11/16 10:30 11/11/16 10:59 DC 11/11/16 10:55 120 MLS/HR Chlorhexidine Gluconate (Peridex) 15 ml BID 11/11/16 21:00 11/17/16 08:49 15 ML Dextrose 25 gm 1X ONCE 11/11/16 10:15 11/11/16 10:17 DC 11/11/16 10:55 25 GM Dextrose 12.5 gm 12.5 gm PRN Q15MIN PRN 11/15/16 12:45 Enoxaparin Sodium (Lovenox 30mg Syringe) 30 mg Q24H 11/11/16 12:00 11/13/16 09:13 DC 11/12/16 12:15 30 MG Enoxaparin Sodium 40 mg 40 mg Q24H 16 12:00 11/17/16 11:56 40 MG Etomidate (Amidate) 20 mg 1X ONCE 11/11/16 08:45 11/11/16 08:46 DC 11/11/16 08:45 20 MG Famotidine (Pepcid) 20 mg Q12HR 11/17/16 21:00 Famotidine 20 mg 20 mg QHS 11/11/16 21:00 11/17/16 13:25 DC 11/16/16 21:41 20 MG Fentanyl Citrate (Fentanyl 2ml Vial) 50 mcg PRN Q1HR PRN 11/11/16 08:45 Fentanyl Citrate (Fentanyl 600 Mcg/30 ml BELL CLERK) 30 ml @ 0 mls/hr CONT PRN 11/11/16 08:45 Hydrocortisone Sodium Succinate (Solu-Cortef) 100 mg Q8HRS 11/11/16 14:00 11/17/16 14:16 100 MG Insulin Aspart (Novolog) 0-7 UNITS TIDWMEALS 11/15/16 17:00 11/17/16 08:49 3 UNITS Insulin Human Regular 10 unit 10 unit 1X ONCE 11/11/16 10:15 11/11/16 10:17 DC 11/11/16 11:28 10 UNIT Levofloxacin/ Dextrose 150 ml @ 100 mls/hr Q24H 11/16/16 10:00 11/17/16 11:54 100 MLS/HR Levofloxacin/ Dextrose 1 each 1 each PRN DAILY PRN 11/11/16 09:30 Midazolam HCl (Versed 100mg/ 100ml Premix) 100 ml @ 0 mls/hr CONT PRN 11/11/16 08:45 11/12/16 23:36 3 MLS/HR Midazolam HCl 1 mg 1 mg PRN Q30MIN PRN 11/11/16 08:45 11/11/16 09:15 1 MG Midazolam HCl 5 mg 5 mg STK-MED ONCE 11/11/16 11:15 11/11/16 11:16 DC Morphine Sulfate 4 mg PRN Q1HR PRN 11/11/16 08:45 Norepinephrine Bitartrate (Levophed 8mg/ 250ml Premix Drip) 250 ml @ 0 mls/hr CONT PRN 11/11/16 13:30 11/11/16 17:08 37.5 MLS/HR Ondansetron HCl (Zofran) 4 mg PRN Q8HRS PRN 11/11/16 10:30 11/12/16 10:29 DC Piperacillin Sod/ Tazobactam Sod (Zosyn Per Pharmacy) 1 each PRN DAILY PRN 11/11/16 09:30 Cancel Piperacillin Sod/ Tazobactam Sod 4.5 gm/Sodium Chloride 100 ml @ 200 mls/hr Q6HRS 11/15/16 18:00 11/17/16 14:04 DC 11/17/16 10:57 200 MLS/HR Piperacillin Sod/ Tazobactam Sod/ Sodium Chloride (Zosyn/Iv Sodium Chloride 0.9% 50ml) 50 ml @ 100 mls/hr Q6HRS 11/11/16 18:00 11/15/16 14:03 DC 11/15/16 12:58 100 MLS/HR Potassium Chloride/Dextrose/ Sod Cl (KCl 20 Meq In D5W-1/2 NS) 1,000 ml @ 80 mls/hr [id number] 11/16/16 07:00 11/16/16 21:42 80 MLS/HR Potassium Chloride/Dextrose/ Sod Cl (KCl 20 Meq In D5W-NS) 1,000 ml @ 75 mls/hr [id number] 11/14/16 09:45 11/15/16 11:12 DC 11/15/16 03:57 75 MLS/HR Propofol (Diprivan) 100 ml @ 0 mls/hr CONT PRN 11/14/16 10:45 11/17/16 00:06 8.803 MLS/HR Sodium Polystyrene Sulfonate 30 gm 30 gm 1X ONCE 11/11/16 17:45 11/11/16 17:46 DC 11/11/16 18:13 30 GM Sodium Chloride (Iv Sodium Chloride 0.9% 1000ml Bag) 1,000 ml @ 100 mls/hr Q10H 11/11/16 17:45 11/13/16 21:27 DC 11/12/16 23:36 100 MLS/HR Sodium Chloride (Normal Saline Flush) 20 ml PRN Q5MIN PRN 11/15/16 10:00 Succinylcholine Chloride 100 mg 100 mg 1X ONCE 11/11/16 08:45 11/11/16 08:46 DC 11/11/16 08:45 100 MG Vancomycin HCl (Vanco Per Pharmacy) 1 each PRN DAILY PRN 11/11/16 09:30 11/17/16 14:03 DC 11/16/16 08:47 1 EACH Vancomycin HCl 1.25 gm/Sodium Chloride 250 ml @ 166.667 mls/hr 1X ONCE 11/11/16 09:45 11/11/16 11:14 DC 11/11/16 10:54 166.667 MLS/HR Vancomycin HCl 750 mg/Sodium Chloride 250 ml @ 250 mls/hr Q12H 11/13/16 14:00 11/15/16 13:58 DC 11/15/16 02:38 250 MLS/HR Vancomycin HCl 1 each 1 each 1X ONCE 11/15/16 13:30 11/15/16 13:31 DC 11/15/16 13:30 1 EACH Vancomycin HCl 1 gm/Sodium Chloride 250 ml @ 250 mls/hr Q12H 11/15/16 14:00 11/17/16 14:03 DC 11/17/16 02:13 250 MLS/HR Vancomycin HCl/ Sodium Chloride (Iv Sodium Chloride 0.9% 250ml) 250 ml @ 250 mls/hr Q24H 11/12/16 11:00 11/13/16 13:07 DC 11/12/16 10:57 250 MLS/HR LAB Lab: Laboratory Tests Test 11/16/16 17:45 11/17/16 05:00 11/17/16 07:23 11/17/16 07:30 Glucose (Fingerstick) 136mg/dL (70-99) 162mg/dL (70-99) White Blood Count 19.7x10^3/uL (4.0-11.0) 21.4x10^3/uL (4.0-11.0) Red Blood Count 3.44x10^6/uL (4.30-5.70) 3.73x10^6/uL (4.30-5.70) Hemoglobin 10.0g/dL (13.0-17.5) 10.7g/dL (13.0-17.5) Hematocrit 32.1% (39.0-53.0) 34.2% (39.0-53.0) Mean Corpuscular Volume 93fL (79-100) 92fL (79-100) Mean Corpuscular Hemoglobin 29pg (25-35) 29pg (25-35) Mean Corpuscular Hemoglobin Concent 31g/dL (31-37) 31g/dL (31-37) Red Cell Distribution Width 13.8% (11.5-14.5) 13.6% (11.5-14.5) Platelet Count 93x10^3/uL (140-400) 95x10^3/uL (140-400) Neutrophils (%) (Auto) 95% (31-73) 95% (31-73) Lymphocytes (%) (Auto) 3% (24-48) 2% (24-48) Monocytes (%) (Auto) 2% (0-9) 2% (0-9) Eosinophils (%) (Auto) 0% (0-3) 0% (0-3) Basophils (%) (Auto) 0% (0-3) 1% (0-3) Neutrophils # (Auto) 18.7x10^3uL (1.8-7.7) 20.4x10^3uL (1.8-7.7) Lymphocytes # (Auto) 0.6x10^3/uL (1.0-4.8) 0.4x10^3/uL (1.0-4.8) Monocytes # (Auto) 0.4x10^3/uL (0.0-1.1) 0.3x10^3/uL (0.0-1.1) Eosinophils # (Auto) 0.0x10^3/uL (0.0-0.7) 0.0x10^3/uL (0.0-0.7) Basophils # (Auto) 0.1x10^3/uL (0.0-0.2) 0.3x10^3/uL (0.0-0.2) Sodium Level 148mmol/L (136-145) 151mmol/L (136-145) Potassium Level 4.9mmol/L (3.5-5.1) 3.3mmol/L (3.5-5.1) Chloride Level 109mmol/L (98-107) 109mmol/L (98-107) Carbon Dioxide Level 38mmol/L (21-32) 42mmol/L (21-32) Anion Gap 1 (6-14) 0 (6-14) Blood Urea Nitrogen 25mg/dL (8-26) 27mg/dL (8-26) Creatinine 0.7mg/dL (0.7-1.3) 0.8mg/dL (0.7-1.3) Estimated GFR (Cockcroft-Gault) 133.8 114.7 BUN/Creatinine Ratio 36 (6-20) 34 (6-20) Glucose Level 450mg/dL (70-99) 172mg/dL (70-99) Calcium Level 7.2mg/dL (8.5-10.1) 7.9mg/dL (8.5-10.1) Total Bilirubin 0.4mg/dL (0.2-1.0) 0.4mg/dL (0.2-1.0) Aspartate Amino Transf (AST/SGOT) 204U/L (15-37) 201U/L (15-37) Alanine Aminotransferase (ALT/SGPT) 889U/L (16-63) 960U/L (16-63) Alkaline Phosphatase 14U/L (46-116) 15U/L (46-116) Total Protein 4.2g/dL (6.4-8.2) 4.2g/dL (6.4-8.2) Albumin 1.6g/dL (3.4-5.0) 1.8g/dL (3.4-5.0) Albumin/Globulin Ratio 0.6 (1.0-1.7) 0.8 (1.0-1.7) Test 11/17/16 08:15 11/17/16 11:53 O2 Saturation 94% (92-99) Arterial Blood pH 7.45 (7.35-7.45) Arterial Blood pCO2 at Patient Temp 57mmHg (35-46) Arterial Blood pO2 at Patient Temp 71mmHg (65-108) Arterial Blood HCO3 38mmol/L (21-28) Arterial Blood Base Excess 12mmol/L (-3-3) FiO2 40 Glucose (Fingerstick) 133mg/dL (70-99) VIOLET MORTON MD Nov 17, 2016 16:50
[2016-11-17 17:25] LABS: HCO3 ABG 43 mmol/L (21-28); PH ABG 7.44 (7.35-7.45); PO2 ABG 69 mmHg (65-108); SAT O2 ABG 94 % (92-99)
[2016-11-17 17:27] LABS: PCO2 ABG 65 mmHg (35-46)
[2016-11-17 17:28] LABS: FIO2 ABG 40
[2016-11-17] MEDS: POTASSIUM CL 20MEQ D5-0.45NACL 1,000 ML IV SCH ×2 (17:53→21:44)
[2016-11-17] MEDS: FAMOTIDINE 20 MG/2 ML VIAL IVP SCH (21:43)
[2016-11-18] VITALS (24 sets, daily range): BP systolic 121–162; BP diastolic 68–95
[2016-11-18] MEDS: PROPOFOL 100 ML IV PRN (01:50)
[2016-11-18 05:29] LABS: BASO # 0.1 x10^3/uL (0.0-0.2); BASO % 1 % (0-3); EOS % 0 % (0-3); HEMATOCRIT 34.9 % (39.0-53.0); HEMOGLOBIN 10.9 g/dL (13.0-17.5); LYMPH # 0.6 x10^3/uL (1.0-4.8); LYMPH % 3 % (24-48); MEAN CORPUSCULAR HEMOGLOBIN 28 pg (25-35); MEAN CORPUSCULAR HGB CONC 31 g/dL (31-37); MEAN CORPUSCULAR VOLUME 91 fL (79-100); MONO % 2 % (0-9); NEUT % 94 % (31-73); PLATELET COUNT 94 x10^3/uL (140-400); RED BLOOD COUNT 3.85 x10^6/uL (4.30-5.70); RED CELL DISTRIBUTION WIDTH 13.6 % (11.5-14.5); WHITE BLOOD COUNT 19.6 x10^3/uL (4.0-11.0)
[2016-11-18] MEDS: HYDROCORTISONE SOD SUCC/PF 100 MG/2 ML VIAL. IV SCH ×3 (05:33→22:23)
[2016-11-18] MEDS: POTASSIUM CL 20MEQ D5-0.45NACL 1,000 ML IV SCH ×2 (05:33→20:24)
[2016-11-18 06:00] LABS: CALCIUM 8.1 mg/dL (8.5-10.1); CREATININE 0.5 mg/dL (0.7-1.3); GFR 197.2; POTASSIUM 3.1 mmol/L (3.5-5.1)
[2016-11-18] MEDS: IPRATRPIUM/ALBUTEROL 0.5/2.5MG 3 ML NEBU. NEB SCH ×4 (08:58→19:52)
[2016-11-18] MEDS: FAMOTIDINE 20 MG/2 ML VIAL IVP SCH ×2 (09:11→20:22)
[2016-11-18] MEDS: CHLORHEXIDINE 0.12% 15 ML MOUTHWASH. MM SCH ×2 (09:11→20:23)
[2016-11-18] MEDS: INSULIN ASPART 300 UNITS/3 ML INSULN.PEN SQ SCH ×3 (09:15→17:00)
[2016-11-18 10:09] LABS: HCO3 ABG 47 mmol/L (21-28); PH ABG 7.39 (7.35-7.45); PO2 ABG 65 mmHg (65-108); SAT O2 ABG 92 % (92-99)
--- NOTE | 2016-11-18 11:12 | PDOC ---
PULMONARY PROGRESS NOTES Subjective Did well on CPAP yesterday/ 6 hrs Did well on T-piece today Vitals Vital Signs Date Time Temp Pulse Resp B/P Pulse Ox O2 Delivery O2 Flow Rate FiO2 11/18/16 08:58 99 Ventilator 11/18/16 06:00 107 18 136/78 11/18/16 04:00 97.9 97.9 General: Alert, No acute distress Lungs: Other (decrease bs) Cardiovascular: S1, S2 Abdomen: Soft, Non-tender Neuro Exam: Alert Extremities: No Edema Skin: Warm, Dry Labs Laboratory Tests Test 11/16/16 12:48 11/16/16 14:00 11/16/16 17:45 11/17/16 05:00 Glucose (Fingerstick) 137mg/dL (70-99) 136mg/dL (70-99) O2 Saturation 91% (92-99) Arterial Blood pH 7.38 (7.35-7.45) Arterial Blood pCO2 at Patient Temp 65mmHg (35-46) Arterial Blood pO2 at Patient Temp 63mmHg (65-108) Arterial Blood HCO3 38mmol/L (21-28) Arterial Blood Base Excess 10mmol/L (-3-3) FiO2 40 White Blood Count 19.7x10^3/uL (4.0-11.0) Red Blood Count 3.44x10^6/uL (4.30-5.70) Hemoglobin 10.0g/dL (13.0-17.5) Hematocrit 32.1% (39.0-53.0) Mean Corpuscular Volume 93fL (79-100) Mean Corpuscular Hemoglobin 29pg (25-35) Mean Corpuscular Hemoglobin Concent 31g/dL (31-37) Red Cell Distribution Width 13.8% (11.5-14.5) Platelet Count 93x10^3/uL (140-400) Neutrophils (%) (Auto) 95% (31-73) Lymphocytes (%) (Auto) 3% (24-48) Monocytes (%) (Auto) 2% (0-9) Eosinophils (%) (Auto) 0% (0-3) Basophils (%) (Auto) 0% (0-3) Neutrophils # (Auto) 18.7x10^3uL (1.8-7.7) Lymphocytes # (Auto) 0.6x10^3/uL (1.0-4.8) Monocytes # (Auto) 0.4x10^3/uL (0.0-1.1) Eosinophils # (Auto) 0.0x10^3/uL (0.0-0.7) Basophils # (Auto) 0.1x10^3/uL (0.0-0.2) Sodium Level 148mmol/L (136-145) Potassium Level 4.9mmol/L (3.5-5.1) Chloride Level 109mmol/L (98-107) Carbon Dioxide Level 38mmol/L (21-32) Anion Gap 1 (6-14) Blood Urea Nitrogen 25mg/dL (8-26) Creatinine 0.7mg/dL (0.7-1.3) Estimated GFR (Cockcroft-Gault) 133.8 BUN/Creatinine Ratio 36 (6-20) Glucose Level 450mg/dL (70-99) Calcium Level 7.2mg/dL (8.5-10.1) Total Bilirubin 0.4mg/dL (0.2-1.0) Aspartate Amino Transf (AST/SGOT) 204U/L (15-37) Alanine Aminotransferase (ALT/SGPT) 889U/L (16-63) Alkaline Phosphatase 14U/L (46-116) Total Protein 4.2g/dL (6.4-8.2) Albumin 1.6g/dL (3.4-5.0) Albumin/Globulin Ratio 0.6 (1.0-1.7) Test 11/17/16 07:23 11/17/16 07:30 11/17/16 08:15 11/17/16 11:53 Glucose (Fingerstick) 162mg/dL (70-99) 133mg/dL (70-99) White Blood Count 21.4x10^3/uL (4.0-11.0) Red Blood Count 3.73x10^6/uL (4.30-5.70) Hemoglobin 10.7g/dL (13.0-17.5) Hematocrit 34.2% (39.0-53.0) Mean Corpuscular Volume 92fL (79-100) Mean Corpuscular Hemoglobin 29pg (25-35) Mean Corpuscular Hemoglobin Concent 31g/dL (31-37) Red Cell Distribution Width 13.6% (11.5-14.5) Platelet Count 95x10^3/uL (140-400) Neutrophils (%) (Auto) 95% (31-73) Lymphocytes (%) (Auto) 2% (24-48) Monocytes (%) (Auto) 2% (0-9) Eosinophils (%) (Auto) 0% (0-3) Basophils (%) (Auto) 1% (0-3) Neutrophils # (Auto) 20.4x10^3uL (1.8-7.7) Lymphocytes # (Auto) 0.4x10^3/uL (1.0-4.8) Monocytes # (Auto) 0.3x10^3/uL (0.0-1.1) Eosinophils # (Auto) 0.0x10^3/uL (0.0-0.7) Basophils # (Auto) 0.3x10^3/uL (0.0-0.2) Sodium Level 151mmol/L (136-145) Potassium Level 3.3mmol/L (3.5-5.1) Chloride Level 109mmol/L (98-107) Carbon Dioxide Level 42mmol/L (21-32) Anion Gap 0 (6-14) Blood Urea Nitrogen 27mg/dL (8-26) Creatinine 0.8mg/dL (0.7-1.3) Estimated GFR (Cockcroft-Gault) 114.7 BUN/Creatinine Ratio 34 (6-20) Glucose Level 172mg/dL (70-99) Calcium Level 7.9mg/dL (8.5-10.1) Total Bilirubin 0.4mg/dL (0.2-1.0) Aspartate Amino Transf (AST/SGOT) 201U/L (15-37) Alanine Aminotransferase (ALT/SGPT) 960U/L (16-63) Alkaline Phosphatase 15U/L (46-116) Total Protein 4.2g/dL (6.4-8.2) Albumin 1.8g/dL (3.4-5.0) Albumin/Globulin Ratio 0.8 (1.0-1.7) O2 Saturation 94% (92-99) Arterial Blood pH 7.45 (7.35-7.45) Arterial Blood pCO2 at Patient Temp 57mmHg (35-46) Arterial Blood pO2 at Patient Temp 71mmHg (65-108) Arterial Blood HCO3 38mmol/L (21-28) Arterial Blood Base Excess 12mmol/L (-3-3) FiO2 40 Test 11/17/16 17:10 11/17/16 17:16 11/17/16 21:48 11/18/16 05:10 O2 Saturation 94% (92-99) Arterial Blood pH 7.44 (7.35-7.45) Arterial Blood pCO2 at Patient Temp 65mmHg (35-46) Arterial Blood pO2 at Patient Temp 69mmHg (65-108) Arterial Blood HCO3 43mmol/L (21-28) Arterial Blood Base Excess 16mmol/L (-3-3) FiO2 40 Glucose (Fingerstick) 124mg/dL (70-99) 133mg/dL (70-99) White Blood Count 19.6x10^3/uL (4.0-11.0) Red Blood Count 3.85x10^6/uL (4.30-5.70) Hemoglobin 10.9g/dL (13.0-17.5) Hematocrit 34.9% (39.0-53.0) Mean Corpuscular Volume 91fL (79-100) Mean Corpuscular Hemoglobin 28pg (25-35) Mean Corpuscular Hemoglobin Concent 31g/dL (31-37) Red Cell Distribution Width 13.6% (11.5-14.5) Platelet Count 94x10^3/uL (140-400) Neutrophils (%) (Auto) 94% (31-73) Lymphocytes (%) (Auto) 3% (24-48) Monocytes (%) (Auto) 2% (0-9) Eosinophils (%) (Auto) 0% (0-3) Basophils (%) (Auto) 1% (0-3) Neutrophils # (Auto) 18.4x10^3uL (1.8-7.7) Lymphocytes # (Auto) 0.6x10^3/uL (1.0-4.8) Monocytes # (Auto) 0.4x10^3/uL (0.0-1.1) Eosinophils # (Auto) 0.0x10^3/uL (0.0-0.7) Basophils # (Auto) 0.1x10^3/uL (0.0-0.2) Sodium Level 152mmol/L (136-145) Potassium Level 3.1mmol/L (3.5-5.1) Chloride Level 108mmol/L (98-107) Carbon Dioxide Level 40mmol/L (21-32) Anion Gap 4 (6-14) Blood Urea Nitrogen 21mg/dL (8-26) Creatinine 0.5mg/dL (0.7-1.3) Estimated GFR (Cockcroft-Gault) 197.2 Glucose Level 165mg/dL (70-99) Calcium Level 8.1mg/dL (8.5-10.1) Laboratory Tests Test 11/17/16 11:53 11/17/16 17:10 11/17/16 17:16 11/17/16 21:48 Glucose (Fingerstick) 133mg/dL (70-99) 124mg/dL (70-99) 133mg/dL (70-99) O2 Saturation 94% (92-99) Arterial Blood pH 7.44 (7.35-7.45) Arterial Blood pCO2 at Patient Temp 65mmHg (35-46) Arterial Blood pO2 at Patient Temp 69mmHg (65-108) Arterial Blood HCO3 43mmol/L (21-28) Arterial Blood Base Excess 16mmol/L (-3-3) FiO2 40 Test 11/18/16 05:10 White Blood Count 19.6x10^3/uL (4.0-11.0) Red Blood Count 3.85x10^6/uL (4.30-5.70) Hemoglobin 10.9g/dL (13.0-17.5) Hematocrit 34.9% (39.0-53.0) Mean Corpuscular Volume 91fL (79-100) Mean Corpuscular Hemoglobin 28pg (25-35) Mean Corpuscular Hemoglobin Concent 31g/dL (31-37) Red Cell Distribution Width 13.6% (11.5-14.5) Platelet Count 94x10^3/uL (140-400) Neutrophils (%) (Auto) 94% (31-73) Lymphocytes (%) (Auto) 3% (24-48) Monocytes (%) (Auto) 2% (0-9) Eosinophils (%) (Auto) 0% (0-3) Basophils (%) (Auto) 1% (0-3) Neutrophils # (Auto) 18.4x10^3uL (1.8-7.7) Lymphocytes # (Auto) 0.6x10^3/uL (1.0-4.8) Monocytes # (Auto) 0.4x10^3/uL (0.0-1.1) Eosinophils # (Auto) 0.0x10^3/uL (0.0-0.7) Basophils # (Auto) 0.1x10^3/uL (0.0-0.2) Sodium Level 152mmol/L (136-145) Potassium Level 3.1mmol/L (3.5-5.1) Chloride Level 108mmol/L (98-107) Carbon Dioxide Level 40mmol/L (21-32) Anion Gap 4 (6-14) Blood Urea Nitrogen 21mg/dL (8-26) Creatinine 0.5mg/dL (0.7-1.3) Estimated GFR (Cockcroft-Gault) 197.2 Glucose Level 165mg/dL (70-99) Calcium Level 8.1mg/dL (8.5-10.1) Medications Active Scripts Medications Dose Route/Sig Days Date Category Dose Instructions Morphine Sulfate 10 Mg/0.5 Ml Disp.syrin 5 Mg PO PRN Q3HRS PRN 11/11/16 Reported Duoneb 0.5-3(2.5) Mg/3 Ml (Albuterol/Ipratropium) 3 Ml Ampul.neb 3 Ml NEB PRN Q2HR PRN 11/11/16 Reported Prilosec (Omeprazole Magnesium) 10 Mg Suspdr.pkt 20 Mg PO DAILY 11/11/16 Reported Meloxicam 15 Mg Tablet 1 Tab PO DAILY 11/11/16 Reported Norvasc (Amlodipine Besylate) 5 Mg Tablet 1 Tab PO DAILY 11/11/16 Reported Miralax (Polyethylene Glycol 3350) 17 Gm Powd.pack 1 Packet PO DAILY PRN 11/11/16 Reported Symbicort 160-4.5 Mcg Inhaler (Budesonide/Formoterol Fumarate) 10.2 Gm Hfa.aer.ad 2 Puff IH BID 11/11/16 Reported Cardizem Tablet (Diltiazem Hcl) 30 Mg Tablet 300 Mg PO DAILY 11/11/16 Reported Spironolactone 25 Mg Tablet 1 Tab PO DAILY 11/11/16 Reported Prednisone 10 Mg Tablet 10 Mg PO UD 11/11/16 Reported Take 3 tablets by mouth twice a day for 3 days, then take 2 tablets by mouth twice a day for 3 days, then take 1 tablet by mouth twice a day for 3 days, then take 1 tablet by mouth daily x 3 days, then stop. Oxycodone Hcl 20 Mg Tablet 20 Mg PO PRN QID PRN 06/13/16 Reported Bisacodyl 5 Mg Tablet.dr 5 Mg PO DAILY06 06/13/16 Reported Clonidine Hcl 0.3 Mg Tablet 0.3 Mg PO TID 12/28/13 Reported Comments cxr 11/17 resolved infiltrates Impression . 1. Eblvn-ee-bwibwlm hypercapnic and hypoxic respiratory failure secondary possible gram pos and gram negative pneumonia and septic shock. resolved 2. 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 3. Sjrac-tk-tngpxlc renal failure. 4. Severe protein-calorie malnutrition. 5. Bilateral infiltrates consistent with pneumonia. resolve by CXR 6. Recent echo with normal ejection fraction. 7. Septic shock off pressors Plan . Has done well on T-Piece today will proceed with extubation today. antibx will be de-escalated today off pressors DVT and GI proph d/w RN/RT I had a lengthy discussion with patients daughter and Niece. I re-addressed code status if extubated. They all agree for DNR/DNI post extubation. They do not want hospice. Wants to continue with aggressive care short of intubation. Will arrange home BIPAP/ Trilogy. Cse worker to arrange.BIPAP prn post extubation. cct 30 min JOHN BAIRES MD Nov 18, 2016 11:12
[2016-11-18] MEDS: ENOXAPARIN 40 MG/0.4 ML DISP.SYRIN. SQ SCH (11:50)
[2016-11-18 13:05] LABS: HCO3 ABG 49 mmol/L (21-28); PH ABG 7.48 (7.35-7.45); PO2 ABG 65 mmHg (65-108); SAT O2 ABG 93 % (92-99)
[2016-11-18 13:07] LABS: FIO2 ABG 30; PCO2 ABG 68 mmHg (35-46)
[2016-11-18 13:09] LABS: FIO2 ABG 40; PCO2 ABG 79 mmHg (35-46)
--- NOTE | 2016-11-18 21:16 | PDOC ---
GENERAL General: vss and afebrile. awake and alert and on bipap and just extubated. K+ 3.1 and getting iv fluids with K+ and will recheck in am. chest with decreased breath sounds and soft wheezes. heart slightly tachycardic. will need eval for swallow tomorrow prior to feeding. no further intubation per family. Problems: VITAL SIGNS Vital Signs: Vital Signs Date Time Temp Pulse Resp B/P Pulse Ox O2 Delivery O2 Flow Rate FiO2 11/18/16 21:00 100 16 127/84 99 BiPAP/CPAP 11/18/16 20:00 99.4 99.4 11/18/16 10:30 10.0 I & O I & O Intake and Output 11/18/16 06:59 Intake Total 5501 ml Output Total 2070 ml Balance 3431 ml Intake IV Total 1808 ml Tube Feeding 2492 ml Other 1201 ml Output Urine Total 2070 ml ALLERGIES Allergies: Allergies Coded Allergies Type Severity Reaction Last Updated Verified lisinopril Allergy Intermediate 06/11/16 Yes MEDS Medications: Current Medications Medications (Trade) Dose Ordered Sig/Pierre Start Time Stop Time Status Last Admin Dose Admin Acetaminophen (Tylenol) 650 mg PRN Q4HRS PRN 11/11/16 10:30 11/12/16 10:29 DC 11/11/16 21:53 650 MG Albuterol Sulfate (Ventolin Neb Soln) 2.5 mg 1X ONCE 11/11/16 10:15 11/11/16 10:17 DC Albuterol/ Ipratropium (Duoneb) 3 ml RTQID 11/12/16 17:00 11/18/16 19:52 3 ML Calcium Chloride/ Sodium Chloride (Iv Sodium Chloride 0.9% 50ml) 60 ml @ 120 mls/hr 1X ONCE 11/11/16 10:30 11/11/16 10:59 DC 11/11/16 10:55 120 MLS/HR Chlorhexidine Gluconate (Peridex) 15 ml BID 11/11/16 21:00 11/18/16 09:11 15 ML Dextrose 25 gm 1X ONCE 11/11/16 10:15 11/11/16 10:17 DC 11/11/16 10:55 25 GM Dextrose 12.5 gm 12.5 gm PRN Q15MIN PRN 11/15/16 12:45 Enoxaparin Sodium (Lovenox 30mg Syringe) 30 mg Q24H 11/11/16 12:00 11/13/16 09:13 DC 11/12/16 12:15 30 MG Enoxaparin Sodium 40 mg 40 mg Q24H 16 12:00 11/18/16 11:50 40 MG Etomidate (Amidate) 20 mg 1X ONCE 11/11/16 08:45 11/11/16 08:46 DC 11/11/16 08:45 20 MG Famotidine (Pepcid) 20 mg Q12HR 11/17/16 21:00 11/18/16 20:22 20 MG Famotidine 20 mg 20 mg QHS 11/11/16 21:00 11/17/16 13:25 DC 11/16/16 21:41 20 MG Fentanyl Citrate (Fentanyl 2ml Vial) 50 mcg PRN Q1HR PRN 11/11/16 08:45 Fentanyl Citrate (Fentanyl 600 Mcg/30 ml [employer]) 30 ml @ 0 mls/hr CONT PRN 11/11/16 08:45 Hydrocortisone Sodium Succinate (Solu-Cortef) 25 mg Q8HRS 11/18/16 22:00 Insulin Aspart (Novolog) 0-7 UNITS TIDWMEALS 11/15/16 17:00 11/18/16 09:15 3 UNITS Insulin Human Regular 10 unit 10 unit 1X ONCE 11/11/16 10:15 11/11/16 10:17 DC 11/11/16 11:28 10 UNIT Levofloxacin/ Dextrose 150 ml @ 100 mls/hr Q24H 11/16/16 10:00 11/18/16 11:11 DC 11/18/16 09:11 100 MLS/HR Levofloxacin/ Dextrose 1 each 1 each PRN DAILY PRN 11/11/16 09:30 Midazolam HCl (Versed 100mg/ 100ml Premix) 100 ml @ 0 mls/hr CONT PRN 11/11/16 08:45 11/12/16 23:36 3 MLS/HR Midazolam HCl 1 mg 1 mg PRN Q30MIN PRN 11/11/16 08:45 11/11/16 09:15 1 MG Midazolam HCl 5 mg 5 mg STK-MED ONCE 11/11/16 11:15 11/11/16 11:16 DC Morphine Sulfate 4 mg PRN Q1HR PRN 11/11/16 08:45 Norepinephrine Bitartrate (Levophed 8mg/ 250ml Premix Drip) 250 ml @ 0 mls/hr CONT PRN 11/11/16 13:30 11/11/16 17:08 37.5 MLS/HR Ondansetron HCl (Zofran) 4 mg PRN Q8HRS PRN 11/11/16 10:30 11/12/16 10:29 DC Piperacillin Sod/ Tazobactam Sod (Zosyn Per Pharmacy) 1 each PRN DAILY PRN 11/11/16 09:30 Cancel Piperacillin Sod/ Tazobactam Sod 4.5 gm/Sodium Chloride 100 ml @ 200 mls/hr Q6HRS 11/15/16 18:00 11/17/16 14:04 DC 11/17/16 10:57 200 MLS/HR Piperacillin Sod/ Tazobactam Sod/ Sodium Chloride (Zosyn/Iv Sodium Chloride 0.9% 50ml) 50 ml @ 100 mls/hr Q6HRS 11/11/16 18:00 11/15/16 14:03 DC 11/15/16 12:58 100 MLS/HR Potassium Chloride/Dextrose/ Sod Cl (KCl 20 Meq In D5W-1/2 NS) 1,000 ml @ 80 mls/hr [id number] 11/16/16 07:00 11/18/16 20:24 80 MLS/HR Potassium Chloride/Dextrose/ Sod Cl (KCl 20 Meq In D5W-NS) 1,000 ml @ 75 mls/hr [id number] 11/14/16 09:45 11/15/16 11:12 DC 11/15/16 03:57 75 MLS/HR Propofol (Diprivan) 100 ml @ 0 mls/hr CONT PRN 11/14/16 10:45 11/18/16 01:50 8.803 MLS/HR Sodium Polystyrene Sulfonate 30 gm 30 gm 1X ONCE 11/11/16 17:45 11/11/16 17:46 DC 11/11/16 18:13 30 GM Sodium Chloride (Iv Sodium Chloride 0.9% 1000ml Bag) 1,000 ml @ 100 mls/hr Q10H 11/11/16 17:45 11/13/16 21:27 DC 11/12/16 23:36 100 MLS/HR Sodium Chloride (Normal Saline Flush) 20 ml PRN Q5MIN PRN 11/15/16 10:00 Succinylcholine Chloride 100 mg 100 mg 1X ONCE 11/11/16 08:45 11/11/16 08:46 DC 11/11/16 08:45 100 MG Vancomycin HCl (Vanco Per Pharmacy) 1 each PRN DAILY PRN 11/11/16 09:30 11/17/16 14:03 DC 11/16/16 08:47 1 EACH Vancomycin HCl 1.25 gm/Sodium Chloride 250 ml @ 166.667 mls/hr 1X ONCE 11/11/16 09:45 11/11/16 11:14 DC 11/11/16 10:54 166.667 MLS/HR Vancomycin HCl 750 mg/Sodium Chloride 250 ml @ 250 mls/hr Q12H 11/13/16 14:00 11/15/16 13:58 DC 11/15/16 02:38 250 MLS/HR Vancomycin HCl 1 each 1 each 1X ONCE 11/15/16 13:30 11/15/16 13:31 DC 11/15/16 13:30 1 EACH Vancomycin HCl 1 gm/Sodium Chloride 250 ml @ 250 mls/hr Q12H 11/15/16 14:00 11/17/16 14:03 DC 11/17/16 02:13 250 MLS/HR Vancomycin HCl/ Sodium Chloride (Iv Sodium Chloride 0.9% 250ml) 250 ml @ 250 mls/hr Q24H 11/12/16 11:00 11/13/16 13:07 DC 11/12/16 10:57 250 MLS/HR LAB Lab: Laboratory Tests Test 11/17/16 21:48 11/18/16 05:10 11/18/16 10:00 11/18/16 11:49 Glucose (Fingerstick) 133mg/dL (70-99) 118mg/dL (70-99) White Blood Count 19.6x10^3/uL (4.0-11.0) Red Blood Count 3.85x10^6/uL (4.30-5.70) Hemoglobin 10.9g/dL (13.0-17.5) Hematocrit 34.9% (39.0-53.0) Mean Corpuscular Volume 91fL (79-100) Mean Corpuscular Hemoglobin 28pg (25-35) Mean Corpuscular Hemoglobin Concent 31g/dL (31-37) Red Cell Distribution Width 13.6% (11.5-14.5) Platelet Count 94x10^3/uL (140-400) Neutrophils (%) (Auto) 94% (31-73) Lymphocytes (%) (Auto) 3% (24-48) Monocytes (%) (Auto) 2% (0-9) Eosinophils (%) (Auto) 0% (0-3) Basophils (%) (Auto) 1% (0-3) Neutrophils # (Auto) 18.4x10^3uL (1.8-7.7) Lymphocytes # (Auto) 0.6x10^3/uL (1.0-4.8) Monocytes # (Auto) 0.4x10^3/uL (0.0-1.1) Eosinophils # (Auto) 0.0x10^3/uL (0.0-0.7) Basophils # (Auto) 0.1x10^3/uL (0.0-0.2) Sodium Level 152mmol/L (136-145) Potassium Level 3.1mmol/L (3.5-5.1) Chloride Level 108mmol/L (98-107) Carbon Dioxide Level 40mmol/L (21-32) Anion Gap 4 (6-14) Blood Urea Nitrogen 21mg/dL (8-26) Creatinine 0.5mg/dL (0.7-1.3) Estimated GFR (Cockcroft-Gault) 197.2 Glucose Level 165mg/dL (70-99) Calcium Level 8.1mg/dL (8.5-10.1) O2 Saturation 92% (92-99) Arterial Blood pH 7.39 (7.35-7.45) Arterial Blood pCO2 at Patient Temp 79mmHg (35-46) Arterial Blood pO2 at Patient Temp 65mmHg (65-108) Arterial Blood HCO3 47mmol/L (21-28) Arterial Blood Base Excess 18mmol/L (-3-3) FiO2 40 Test 11/18/16 12:45 11/18/16 18:21 11/18/16 20:29 O2 Saturation 93% (92-99) Arterial Blood pH 7.48 (7.35-7.45) Arterial Blood pCO2 at Patient Temp 68mmHg (35-46) Arterial Blood pO2 at Patient Temp 65mmHg (65-108) Arterial Blood HCO3 49mmol/L (21-28) Arterial Blood Base Excess 22mmol/L (-3-3) FiO2 30 Glucose (Fingerstick) 99mg/dL (70-99) 92mg/dL (70-99) VIOLET MORTON MD Nov 18, 2016 21:16
[2016-11-19] VITALS (14 sets, daily range): BP systolic 116–155; BP diastolic 78–95
[2016-11-19] MEDS: HYDROCORTISONE SOD SUCC/PF 100 MG/2 ML VIAL. IV SCH ×3 (05:27→21:16)
[2016-11-19 05:48] LABS: BLOOD UREA NITROGEN 17 mg/dL (8-26); CALCIUM 8.2 mg/dL (8.5-10.1); CARBON DIOXIDE 44 mmol/L (21-32); CHLORIDE 104 mmol/L (98-107); CREATININE 0.5 mg/dL (0.7-1.3); GFR 197.2; GLUCOSE 103 mg/dL (70-99); POTASSIUM 3.2 mmol/L (3.5-5.1); SODIUM 147 mmol/L (136-145)
[2016-11-19] MEDS: IPRATRPIUM/ALBUTEROL 0.5/2.5MG 3 ML NEBU. NEB SCH ×4 (07:10→19:04)
[2016-11-19] MEDS: INSULIN ASPART 300 UNITS/3 ML INSULN.PEN SQ SCH ×3 (08:00→17:00)
[2016-11-19] MEDS: CHLORHEXIDINE 0.12% 15 ML MOUTHWASH. MM SCH ×2 (09:00→20:31)
[2016-11-19] MEDS: FAMOTIDINE 20 MG/2 ML VIAL IVP SCH ×2 (09:38→20:28)
[2016-11-19] MEDS: POTASSIUM CL 20MEQ D5-0.45NACL 1,000 ML IV SCH ×2 (09:39→21:17)
--- NOTE | 2016-11-19 10:07 | PDOC ---
PROGRESS NOTES Subjective Subjective Pt awake and pleasant. Objective Objective Pt awake and alert. Extubated, on BiPAP. Resp even and unlabored. Lung sounds diminished with expiratory wheeze present. Heart with RRR. No murmurs. Vital Signs Date Time Temp Pulse Resp B/P Pulse Ox O2 Delivery O2 Flow Rate FiO2 11/19/16 08:45 96 BiPAP/CPAP 11/19/16 06:00 105 18 116/88 11/19/16 04:00 11/19/16 04:00 98.0 98.0 Intake and Output 11/19/16 06:59 Intake Total 3154 ml Output Total 2153 ml Balance 1001 ml Intake IV Total 2874 ml Tube Feeding 280 ml Output Urine Total 2153 ml Assessment Assessment Problems Medical Problems: (1) Acute and chronic respiratory failure ([id number]) Status: Acute (2) HCAP (healthcare-associated pneumonia) Status: Acute (3) Hyperkalemia Status: Acute (4) Respiratory failure Status: Acute (5) Septic shock Status: Acute Plan Plan of Care 1. Respiratory failure secondary to pneumonia with underlying COPD -extubated, now on BiPAP -stable to transfer out of ICU today -swallow study today to begin oral diet -pt on Levaquin IV -pt on steroids IV -Pulmonary consulting 2. Hypokalemia -Increase K in IVF to -recheck BMP in am Pt is a hospice patient with a DNR and DNI. Palliative care consulting. Comment Review of Relevant I have reviewed the following items edwin (where applicable) has been applied. Labs Laboratory Tests Test 11/17/16 11:53 11/17/16 17:10 11/17/16 17:16 11/17/16 21:48 Glucose (Fingerstick) 133mg/dL (70-99) 124mg/dL (70-99) 133mg/dL (70-99) O2 Saturation 94% (92-99) Arterial Blood pH 7.44 (7.35-7.45) Arterial Blood pCO2 at Patient Temp 65mmHg (35-46) Arterial Blood pO2 at Patient Temp 69mmHg (65-108) Arterial Blood HCO3 43mmol/L (21-28) Arterial Blood Base Excess 16mmol/L (-3-3) FiO2 40 Test 11/18/16 05:10 11/18/16 10:00 11/18/16 11:49 11/18/16 12:45 White Blood Count 19.6x10^3/uL (4.0-11.0) Red Blood Count 3.85x10^6/uL (4.30-5.70) Hemoglobin 10.9g/dL (13.0-17.5) Hematocrit 34.9% (39.0-53.0) Mean Corpuscular Volume 91fL (79-100) Mean Corpuscular Hemoglobin 28pg (25-35) Mean Corpuscular Hemoglobin Concent 31g/dL (31-37) Red Cell Distribution Width 13.6% (11.5-14.5) Platelet Count 94x10^3/uL (140-400) Neutrophils (%) (Auto) 94% (31-73) Lymphocytes (%) (Auto) 3% (24-48) Monocytes (%) (Auto) 2% (0-9) Eosinophils (%) (Auto) 0% (0-3) Basophils (%) (Auto) 1% (0-3) Neutrophils # (Auto) 18.4x10^3uL (1.8-7.7) Lymphocytes # (Auto) 0.6x10^3/uL (1.0-4.8) Monocytes # (Auto) 0.4x10^3/uL (0.0-1.1) Eosinophils # (Auto) 0.0x10^3/uL (0.0-0.7) Basophils # (Auto) 0.1x10^3/uL (0.0-0.2) Sodium Level 152mmol/L (136-145) Potassium Level 3.1mmol/L (3.5-5.1) Chloride Level 108mmol/L (98-107) Carbon Dioxide Level 40mmol/L (21-32) Anion Gap 4 (6-14) Blood Urea Nitrogen 21mg/dL (8-26) Creatinine 0.5mg/dL (0.7-1.3) Estimated GFR (Cockcroft-Gault) 197.2 Glucose Level 165mg/dL (70-99) Calcium Level 8.1mg/dL (8.5-10.1) O2 Saturation 92% (92-99) 93% (92-99) Arterial Blood pH 7.39 (7.35-7.45) 7.48 (7.35-7.45) Arterial Blood pCO2 at Patient Temp 79mmHg (35-46) 68mmHg (35-46) Arterial Blood pO2 at Patient Temp 65mmHg (65-108) 65mmHg (65-108) Arterial Blood HCO3 47mmol/L (21-28) 49mmol/L (21-28) Arterial Blood Base Excess 18mmol/L (-3-3) 22mmol/L (-3-3) FiO2 40 30 Glucose (Fingerstick) 118mg/dL (70-99) Test 11/18/16 18:21 11/18/16 20:29 11/19/16 05:10 Glucose (Fingerstick) 99mg/dL (70-99) 92mg/dL (70-99) Sodium Level 147mmol/L (136-145) Potassium Level 3.2mmol/L (3.5-5.1) Chloride Level 104mmol/L (98-107) Carbon Dioxide Level 44mmol/L (21-32) Anion Gap (6-14) Blood Urea Nitrogen 17mg/dL (8-26) Creatinine 0.5mg/dL (0.7-1.3) Estimated GFR (Cockcroft-Gault) 197.2 Glucose Level 103mg/dL (70-99) Calcium Level 8.2mg/dL (8.5-10.1) Laboratory Tests Test 11/18/16 10:00 11/18/16 11:49 11/18/16 12:45 11/18/16 18:21 O2 Saturation 92% (92-99) 93% (92-99) Arterial Blood pH 7.39 (7.35-7.45) 7.48 (7.35-7.45) Arterial Blood pCO2 at Patient Temp 79mmHg (35-46) 68mmHg (35-46) Arterial Blood pO2 at Patient Temp 65mmHg (65-108) 65mmHg (65-108) Arterial Blood HCO3 47mmol/L (21-28) 49mmol/L (21-28) Arterial Blood Base Excess 18mmol/L (-3-3) 22mmol/L (-3-3) FiO2 40 30 Glucose (Fingerstick) 118mg/dL (70-99) 99mg/dL (70-99) Test 11/18/16 20:29 11/19/16 05:10 Glucose (Fingerstick) 92mg/dL (70-99) Sodium Level 147mmol/L (136-145) Potassium Level 3.2mmol/L (3.5-5.1) Chloride Level 104mmol/L (98-107) Carbon Dioxide Level 44mmol/L (21-32) Anion Gap (6-14) Blood Urea Nitrogen 17mg/dL (8-26) Creatinine 0.5mg/dL (0.7-1.3) Estimated GFR (Cockcroft-Gault) 197.2 Glucose Level 103mg/dL (70-99) Calcium Level 8.2mg/dL (8.5-10.1) Microbiology 11/11/16 Blood Culture - Final, Complete NO GROWTH AFTER 5 DAYS Medications Current Medications Sodium Chloride 1,000 ml @ 1,000 mls/hr 1X ONCE IV Last administered on 11/11at 08:43; Start 11/11/16 at 09:00; Stop 11/11/16 at 09:59; Status DC Sodium Chloride (Iv Sodium Chloride 0.9% 1000ml Bag) 1,000 ml @ 1,000 mls/hr 1X ONCE IV Last administered on 11/11/16at 08:42; Start 11/11/16 at 08:45; Stop 11/11/16 at 09:44; Status DC Etomidate (Amidate) 20 mg 1X ONCE IV Last administered on 11/11/16at 08:45; Start 11/11/16 at 08:45; Stop 11/11/16 at 08:46; Status DC Succinylcholine Chloride 100 mg 100 mg 1X ONCE IV Last administered on at 08:45; Start 11/11/16 at 08:45; Stop 11/11/16 at 08:46; Status DC Fentanyl Citrate (Fentanyl 600 Mcg/30 ml PSYCHIATRIC SPECIALIST) 30 ml @ 0 mls/hr CONT PRN IV PROTOCOL; Start 11/11/16 at 08:45 Fentanyl Citrate (Fentanyl 2ml Vial) 50 mcg PRN Q1HR PRN IV COMM; Start at 08:45 Chlorhexidine Gluconate (Peridex) 15 ml BID MM Last administered on 11/18/16at 09:11; Start 11/11/16 at 21:00 Famotidine (Pepcid) 20 mg BID IVP ; Start 11/11/16 at 21:00; Stop 11/11/16 at 21:00; Status DC Morphine Sulfate 4 mg PRN Q1HR PRN IV COMM; Start 11/11/16 at 08:45 Midazolam HCl 1 mg 1 mg PRN Q30MIN PRN IV COMM Last administered on 11/11/16at 09:15; Start 11/11/16 at 08:45 Midazolam HCl (Versed 100mg/ 100ml Premix) 100 ml @ 0 mls/hr CONT PRN IV PER PROTOCOL Last administered on 11/12/16at 23:36; Start 11/11/16 at 08:45 Vancomycin HCl (Vanco Per Pharmacy) 1 each PRN DAILY PRN MC SEE COMMENTS Last administered on 11/16/16at 08:47; Start 11/11/16 at 09:30; Stop 11/17/16 at 14 :03; Status DC Piperacillin Sod/ Tazobactam Sod (Zosyn Per Pharmacy) 1 each PRN DAILY PRN MC SEE COMMENTS; Start 11/11/16 at 09:30; Status Cancel Levofloxacin/ Dextrose 1 each 1 each PRN DAILY PRN MC SEE COMMENTS; Start at 09:30 Sodium Chloride 1,000 ml @ 1,000 mls/hr 1X ONCE IV Last administered on 11/11at 09:37; Start 11/11/16 at 09:30; Stop 11/11/16 at 10:29; Status DC Vancomycin HCl 1.25 gm/Sodium Chloride 250 ml @ 166.667 mls/hr 1X ONCE IV Last administered on 11/11/16at 10:54; Start 11/11/16 at 09:45; Stop 11/11/16 at 11:14; Status DC Piperacillin Sod/ Tazobactam Sod 4.5 gm/Sodium Chloride 100 ml @ 200 mls/hr 1X ONCE IV Last administered on 11/11/16at 09:55; Start 11/11/16 at 09:45; Stop 11/11/16 at 10:14; Status DC Levofloxacin/ Dextrose 150 ml @ 100 mls/hr 1X ONCE IV ; Start 11/11/16 at 09: 45; Stop 11/11/16 at 11:14; Status DC Norepinephrine Bitartrate 250 ml @ 0 mls/hr 1X ONCE IV Last administered on at 09:45; Start 11/11/16 at 09:45; Stop 11/11/16 at 09:46; Status DC Levofloxacin/ Dextrose 150 ml @ 100 mls/hr Q48H IV Last administered on at 10:45; Start 11/13/16 at 10:00; Stop 11/15/16 at 14:00; Status DC Piperacillin Sod/ Tazobactam Sod/ Sodium Chloride (Zosyn/Iv Sodium Chloride 0.9 % 50ml) 50 ml @ 100 mls/hr Q6HRS IV Last administered on 11/15/16at 12:58; Start 11/11/16 at 18:00; Stop 11/15/16 at 14:03; Status DC Dextrose 25 gm 1X ONCE IV Last administered on 11/11/16at 10:55; Start at 10:15; Stop 11/11/16 at 10:17; Status DC Insulin Human Regular 10 unit 10 unit 1X ONCE IV Last administered on at 11:28; Start 11/11/16 at 10:15; Stop 11/11/16 at 10:17; Status DC Calcium Chloride/ Sodium Chloride (Iv Sodium Chloride 0.9% 50ml) 60 ml @ 120 mls/hr 1X ONCE IV Last administered on 11/11/16at 10:55; Start 11/11/16 at 10 :30; Stop 11/11/16 at 10:59; Status DC Albuterol Sulfate (Ventolin Neb Soln) 2.5 mg 1X ONCE NEB ; Start 11/11/16 at 10:15; Stop 11/11/16 at 10:17; Status DC Ondansetron HCl (Zofran) 4 mg PRN Q8HRS PRN IV NAUSEA/VOMITING; Start at 10:30; Stop 11/12/16 at 10:29; Status DC Acetaminophen (Tylenol) 650 mg PRN Q4HRS PRN PO FEVER Last administered on at 21:53; Start 11/11/16 at 10:30; Stop 11/12/16 at 10:29; Status DC Hydrocortisone Sodium Succinate (Solu-Cortef) 100 mg Q8HRS IV Last administered on 11/18/16at 14:48; Start 11/11/16 at 14:00; Stop 11/18/16 at 17 :38; Status DC Enoxaparin Sodium (Lovenox 30mg Syringe) 30 mg Q24H SQ Last administered on at 12:15; Start 11/11/16 at 12:00; Stop 11/13/16 at 09:13; Status DC Midazolam HCl 5 mg 5 mg STK-MED ONCE .ROUTE ; Start 11/11/16 at 11:15; Stop at 11:16; Status DC Vancomycin HCl/ Sodium Chloride (Iv Sodium Chloride 0.9% 250ml) 250 ml @ 250 mls/hr Q24H IV Last administered on 11/12/16at 10:57; Start 11/12/16 at 11:00 ; Stop 11/13/16 at 13:07; Status DC Vancomycin HCl 1 each 1X ONCE MC ; Start 11/13/16 at 10:30; Stop 11/13/16 at 10:31; Status DC Famotidine 20 mg 20 mg QHS IVP Last administered on 11/16/16at 21:41; Start at 21:00; Stop 11/17/16 at 13:25; Status DC Norepinephrine Bitartrate (Levophed 8mg/ 250ml Premix Drip) 250 ml @ 0 mls/hr CONT PRN IV SEE I/O RECORD Last administered on 11/11/16at 17:08; Start at 13:30 Sodium Polystyrene Sulfonate 30 gm 30 gm 1X ONCE PO Last administered on 11/11at 18:13; Start 11/11/16 at 17:45; Stop 11/11/16 at 17:46; Status DC Sodium Chloride (Iv Sodium Chloride 0.9% 1000ml Bag) 1,000 ml @ 100 mls/hr Q10H IV Last administered on 11/12/16at 23:36; Start 11/11/16 at 17:45; Stop 11/13/16 at 21:27; Status DC Albuterol/ Ipratropium (Duoneb) 3 ml RTQID NEB Last administered on 11/19/16at 07:10; Start 11/12/16 at 17:00 Enoxaparin Sodium 40 mg 40 mg Q24H SQ Last administered on 11/18/16at 11:50; Start 11/13/16 at 12:00 Vancomycin HCl 750 mg/Sodium Chloride 250 ml @ 250 mls/hr Q12H IV Last administered on 11/15/16at 02:38; Start 11/13/16 at 14:00; Stop 11/15/16 at 13 :58; Status DC Potassium Chloride/Dextrose/ Sod Cl (KCl 20 Meq In D5W-NS) 1,000 ml @ 75 mls/ hr [id number] IV Last administered on 11/15/16at 03:57; Start 11/14/16 at 09:45; Stop 11/15/16 at 11:12; Status DC Vancomycin HCl 1 each 1 each 1X ONCE MC Last administered on 11/15/16at 13:30 ; Start 11/15/16 at 13:30; Stop 11/15/16 at 13:31; Status DC Propofol (Diprivan) 100 ml @ 0 mls/hr CONT PRN IV SEE I/O RECORD Last administered on 11/18/16at 01:50; Start 11/14/16 at 10:45 Sodium Chloride (Normal Saline Flush) 10 ml QSHIFT PRN IV AFTER MEDS AND BLOOD DRAWS; Start 11/15/16 at 10:00; Stop 11/15/16 at 10:00; Status DC Sodium Chloride (Normal Saline Flush) 10 ml PRN Q5MIN PRN IV AFTER MEDS AND BLOOD DRAWS; Start 11/15/16 at 10:00 Sodium Chloride 20 ml 20 ml PRN Q5MIN PRN IV AFTER MEDS AND BLOOD DRAWS; Start 11/15/16 at 10:00 Potassium Chloride/Dextrose/ Sod Cl (KCl 20 Meq In D5W-1/2 NS) 1,000 ml @ 80 mls/hr 1X ONCE IV Last administered on 11/15/16at 13:01; Start 11/15/16 at 11 :15; Stop 11/15/16 at 23:44; Status DC Insulin Aspart (Novolog) 0-7 UNITS TIDWMEALS SQ Last administered on at 09:15; Start 11/15/16 at 17:00 Dextrose 12.5 gm 12.5 gm PRN Q15MIN PRN IV SEE COMMENTS; Start 11/15/16 at 12: 45 Vancomycin HCl 1 gm/Sodium Chloride 250 ml @ 250 mls/hr Q12H IV Last administered on 11/17/16at 02:13; Start 11/15/16 at 14:00; Stop 11/17/16 at 14 :03; Status DC Levofloxacin/ Dextrose 150 ml @ 100 mls/hr Q24H IV Last administered on at 09:11; Start 11/16/16 at 10:00; Stop 11/18/16 at 11:11; Status DC Piperacillin Sod/ Tazobactam Sod 4.5 gm/Sodium Chloride 100 ml @ 200 mls/hr Q6HRS IV Last administered on 11/17/16at 10:57; Start 11/15/16 at 18:00; Stop 11/17/16 at 14:04; Status DC Potassium Chloride/Dextrose/ Sod Cl (KCl 20 Meq In D5W-1/2 NS) 1,000 ml @ 80 mls/hr [id number] IV Last administered on 11/19/16at 09:39; Start 11/16/16 at 07: 00 Famotidine (Pepcid) 20 mg Q12HR IVP Last administered on 11/19/16at 09:38; Start 11/17/16 at 21:00 Hydrocortisone Sodium Succinate (Solu-Cortef) 25 mg Q8HRS IV Last administered on 11/19/16at 05:27; Start 11/18/16 at 22:00 Active Scripts Active Reported Morphine Sulfate 10 Mg/0.5 Ml Disp.syrin 5 Mg PO PRN Q3HRS PRN Duoneb 0.5-3(2.5) Mg/3 Ml (Albuterol/Ipratropium) 3 Ml Ampul.neb 3 Ml NEB PRN Q2HR PRN Prilosec (Omeprazole Magnesium) 10 Mg Suspdr.pkt 20 Mg PO DAILY Meloxicam 15 Mg Tablet 1 Tab PO DAILY Norvasc (Amlodipine Besylate) 5 Mg Tablet 1 Tab PO DAILY Miralax (Polyethylene Glycol 3350) 17 Gm Powd.pack 1 Packet PO DAILY PRN Symbicort 160-4.5 Mcg Inhaler (Budesonide/Formoterol Fumarate) 10.2 Gm Hfa.aer.ad 2 Puff IH BID Cardizem Tablet (Diltiazem Hcl) 30 Mg Tablet 300 Mg PO DAILY Spironolactone 25 Mg Tablet 1 Tab PO DAILY Prednisone 10 Mg Tablet 10 Mg PO UD Take 3 tablets by mouth twice a day for 3 days, then take 2 tablets by mouth twice a day for 3 days, then take 1 tablet by mouth twice a day for 3 days, then take 1 tablet by mouth daily x 3 days, then stop. Oxycodone Hcl 20 Mg Tablet 20 Mg PO PRN QID PRN Bisacodyl 5 Mg Tablet.dr 5 Mg PO DAILY06 Clonidine Hcl 0.3 Mg Tablet 0.3 Mg PO TID Vitals/I & O Vital Sign - Last 24 Hours 11/18/16 11/18/16 11/18/16 11/18/16 10:00 10:30 10:45 11:00 Pulse 104 112 Resp 18 22 B/P 149/80 143/90 Pulse Ox 100 98 97 O2 Delivery Ventilator Aerosol Mask BiPAP/CPAP Ventilator O2 Flow Rate 10.0 11/18/16 11/18/16 11/18/16 11/18/16 12:00 12:00 12:45 13:00 Temp 98.4 98.4 Pulse 100 100 Resp 17 19 B/P 149/88 146/90 Pulse Ox 98 99 99 O2 Delivery Ventilator Bi-pap BiPAP/CPAP Ventilator 11/18/16 11/18/16 11/18/16 11/18/16 14:00 15:00 15:39 16:00 Temp 98.5 98.5 Pulse 104 94 96 Resp 20 19 17 B/P 145/81 162/95 157/92 Pulse Ox 96 95 95 98 O2 Delivery Ventilator Ventilator BiPAP/CPAP Ventilator 11/18/16 11/18/16 11/18/16 11/18/16 16:00 17:00 18:00 19:00 Pulse 96 101 101 Resp 17 16 16 B/P 156/85 135/91 134/90 Pulse Ox 99 98 98 O2 Delivery Bi-pap Ventilator Ventilator BiPAP/CPAP 11/18/16 11/18/16 11/18/16 11/18/16 19:52 20:00 20:00 20:00 Temp 99.4 99.4 Pulse 100 Resp 17 B/P 124/82 Pulse Ox 98 99 O2 Delivery BiPAP/CPAP Bi-pap BiPAP/CPAP O2 Flow Rate 11/18/16 11/18/16 11/18/16 11/18/16 21:00 21:30 22:00 23:00 Pulse 100 101 97 Resp 16 16 16 B/P 127/84 146/93 129/78 Pulse Ox 99 98 98 98 O2 Delivery BiPAP/CPAP BiPAP/CPAP BiPAP/CPAP BiPAP/CPAP 11/18/16 11/19/16 11/19/16 11/19/16 23:45 00:00 00:00 00:00 Temp 98.2 98.2 Pulse 102 Resp 16 B/P 139/86 Pulse Ox 97 98 O2 Delivery BiPAP/CPAP Bi-pap BiPAP/CPAP O2 Flow Rate 11/19/16 11/19/16 11/19/16 11/19/16 01:00 01:25 02:00 03:00 Pulse 100 104 98 Resp 20 20 16 B/P 151/88 134/87 131/82 Pulse Ox 99 97 99 99 O2 Delivery BiPAP/CPAP BiPAP/CPAP BiPAP/CPAP BiPAP/CPAP 11/19/16 11/19/16 11/19/16 11/19/16 03:14 04:00 04:00 04:00 Temp 98.0 98.0 Pulse 98 Resp 16 B/P 143/94 Pulse Ox 99 99 O2 Delivery BiPAP/CPAP Bi-pap BiPAP/CPAP O2 Flow Rate 11/19/16 11/19/16 11/19/16 11/19/16 05:00 05:40 06:00 07:10 Pulse 103 105 Resp 19 18 B/P 117/78 116/88 Pulse Ox 98 99 98 98 O2 Delivery BiPAP/CPAP BiPAP/CPAP BiPAP/CPAP BiPAP/CPAP 11/19/16 08:45 Pulse Ox 96 O2 Delivery BiPAP/CPAP Intake and Output 11/18/16 11/18/16 11/19/16 14:59 22:59 06:59 Intake Total 280 ml 2025 ml 849 ml Output Total 550 ml 900 ml 703 ml Balance -270 ml 1125 ml 146 ml VIOLET MORTON MD Nov 19, 2016 10:07
--- NOTE | 2016-11-19 10:43 | PDOC ---
PULMONARY PROGRESS NOTES Subjective extubated 11/18 on BIPAP/ comfortable Vitals Vital Signs Date Time Temp Pulse Resp B/P Pulse Ox O2 Delivery O2 Flow Rate FiO2 11/19/16 08:45 96 BiPAP/CPAP 11/19/16 06:00 105 18 116/88 11/19/16 04:00 11/19/16 04:00 98.0 98.0 General: Alert, No acute distress Lungs: Other (decrease bs) Cardiovascular: S1, S2 Abdomen: Soft, Non-tender Neuro Exam: Alert Extremities: No Edema Skin: Warm, Dry Labs Laboratory Tests Test 11/17/16 11:53 11/17/16 17:10 11/17/16 17:16 11/17/16 21:48 Glucose (Fingerstick) 133mg/dL (70-99) 124mg/dL (70-99) 133mg/dL (70-99) O2 Saturation 94% (92-99) Arterial Blood pH 7.44 (7.35-7.45) Arterial Blood pCO2 at Patient Temp 65mmHg (35-46) Arterial Blood pO2 at Patient Temp 69mmHg (65-108) Arterial Blood HCO3 43mmol/L (21-28) Arterial Blood Base Excess 16mmol/L (-3-3) FiO2 40 Test 11/18/16 05:10 11/18/16 10:00 11/18/16 11:49 11/18/16 12:45 White Blood Count 19.6x10^3/uL (4.0-11.0) Red Blood Count 3.85x10^6/uL (4.30-5.70) Hemoglobin 10.9g/dL (13.0-17.5) Hematocrit 34.9% (39.0-53.0) Mean Corpuscular Volume 91fL (79-100) Mean Corpuscular Hemoglobin 28pg (25-35) Mean Corpuscular Hemoglobin Concent 31g/dL (31-37) Red Cell Distribution Width 13.6% (11.5-14.5) Platelet Count 94x10^3/uL (140-400) Neutrophils (%) (Auto) 94% (31-73) Lymphocytes (%) (Auto) 3% (24-48) Monocytes (%) (Auto) 2% (0-9) Eosinophils (%) (Auto) 0% (0-3) Basophils (%) (Auto) 1% (0-3) Neutrophils # (Auto) 18.4x10^3uL (1.8-7.7) Lymphocytes # (Auto) 0.6x10^3/uL (1.0-4.8) Monocytes # (Auto) 0.4x10^3/uL (0.0-1.1) Eosinophils # (Auto) 0.0x10^3/uL (0.0-0.7) Basophils # (Auto) 0.1x10^3/uL (0.0-0.2) Sodium Level 152mmol/L (136-145) Potassium Level 3.1mmol/L (3.5-5.1) Chloride Level 108mmol/L (98-107) Carbon Dioxide Level 40mmol/L (21-32) Anion Gap 4 (6-14) Blood Urea Nitrogen 21mg/dL (8-26) Creatinine 0.5mg/dL (0.7-1.3) Estimated GFR (Cockcroft-Gault) 197.2 Glucose Level 165mg/dL (70-99) Calcium Level 8.1mg/dL (8.5-10.1) O2 Saturation 92% (92-99) 93% (92-99) Arterial Blood pH 7.39 (7.35-7.45) 7.48 (7.35-7.45) Arterial Blood pCO2 at Patient Temp 79mmHg (35-46) 68mmHg (35-46) Arterial Blood pO2 at Patient Temp 65mmHg (65-108) 65mmHg (65-108) Arterial Blood HCO3 47mmol/L (21-28) 49mmol/L (21-28) Arterial Blood Base Excess 18mmol/L (-3-3) 22mmol/L (-3-3) FiO2 40 30 Glucose (Fingerstick) 118mg/dL (70-99) Test 11/18/16 18:21 11/18/16 20:29 11/19/16 05:10 Glucose (Fingerstick) 99mg/dL (70-99) 92mg/dL (70-99) Sodium Level 147mmol/L (136-145) Potassium Level 3.2mmol/L (3.5-5.1) Chloride Level 104mmol/L (98-107) Carbon Dioxide Level 44mmol/L (21-32) Anion Gap (6-14) Blood Urea Nitrogen 17mg/dL (8-26) Creatinine 0.5mg/dL (0.7-1.3) Estimated GFR (Cockcroft-Gault) 197.2 Glucose Level 103mg/dL (70-99) Calcium Level 8.2mg/dL (8.5-10.1) Laboratory Tests Test 11/18/16 11:49 11/18/16 12:45 11/18/16 18:21 11/18/16 20:29 Glucose (Fingerstick) 118mg/dL (70-99) 99mg/dL (70-99) 92mg/dL (70-99) O2 Saturation 93% (92-99) Arterial Blood pH 7.48 (7.35-7.45) Arterial Blood pCO2 at Patient Temp 68mmHg (35-46) Arterial Blood pO2 at Patient Temp 65mmHg (65-108) Arterial Blood HCO3 49mmol/L (21-28) Arterial Blood Base Excess 22mmol/L (-3-3) FiO2 30 Test 11/19/16 05:10 Sodium Level 147mmol/L (136-145) Potassium Level 3.2mmol/L (3.5-5.1) Chloride Level 104mmol/L (98-107) Carbon Dioxide Level 44mmol/L (21-32) Anion Gap (6-14) Blood Urea Nitrogen 17mg/dL (8-26) Creatinine 0.5mg/dL (0.7-1.3) Estimated GFR (Cockcroft-Gault) 197.2 Glucose Level 103mg/dL (70-99) Calcium Level 8.2mg/dL (8.5-10.1) Medications Active Scripts Medications Dose Route/Sig Days Date Category Dose Instructions Morphine Sulfate 10 Mg/0.5 Ml Disp.syrin 5 Mg PO PRN Q3HRS PRN 11/11/16 Reported Duoneb 0.5-3(2.5) Mg/3 Ml (Albuterol/Ipratropium) 3 Ml Ampul.neb 3 Ml NEB PRN Q2HR PRN 11/11/16 Reported Prilosec (Omeprazole Magnesium) 10 Mg Suspdr.pkt 20 Mg PO DAILY 11/11/16 Reported Meloxicam 15 Mg Tablet 1 Tab PO DAILY 11/11/16 Reported Norvasc (Amlodipine Besylate) 5 Mg Tablet 1 Tab PO DAILY 11/11/16 Reported Miralax (Polyethylene Glycol 3350) 17 Gm Powd.pack 1 Packet PO DAILY PRN 11/11/16 Reported Symbicort 160-4.5 Mcg Inhaler (Budesonide/Formoterol Fumarate) 10.2 Gm Hfa.aer.ad 2 Puff IH BID 11/11/16 Reported Cardizem Tablet (Diltiazem Hcl) 30 Mg Tablet 300 Mg PO DAILY 11/11/16 Reported Spironolactone 25 Mg Tablet 1 Tab PO DAILY 11/11/16 Reported Prednisone 10 Mg Tablet 10 Mg PO UD 11/11/16 Reported Take 3 tablets by mouth twice a day for 3 days, then take 2 tablets by mouth twice a day for 3 days, then take 1 tablet by mouth twice a day for 3 days, then take 1 tablet by mouth daily x 3 days, then stop. Oxycodone Hcl 20 Mg Tablet 20 Mg PO PRN QID PRN 06/13/16 Reported Bisacodyl 5 Mg Tablet.dr 5 Mg PO DAILY06 06/13/16 Reported Clonidine Hcl 0.3 Mg Tablet 0.3 Mg PO TID 12/28/13 Reported Comments cxr 11/17 resolved infiltrates Impression . 1. [id number] hypercapnic and hypoxic respiratory failure secondary possible gram pos and gram negative pneumonia and septic shock. resolved 2. 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 3. [id number]-zjymcbl renal failure. 4. Severe protein-calorie malnutrition. 5. Bilateral infiltrates consistent with pneumonia. resolve by CXR 6. Recent echo with normal ejection fraction. 7. Septic shock off pressors Plan . extubated 11/[address] on VM/ BIPAP qhs and prn antibx will be de-escalated further, only on levaquin now off pressors DVT and GI prophylaxis speech vi d/w RN/RT I had a lengthy discussion with patients daughter and Niece 11/18. I re- addressed code status They all agree for DNR/DNI post extubation. They do not want hospice. Wants to continue with aggressive care short of intubation. Will arrange home BIPAP/ Trilogy. emergency service worker to arrange.BIPAP for home JOHN BAIRES MD Nov 19, 2016 10:43
[2016-11-19 13:08] LABS: HCO3 ABG 45 mmol/L (21-28); PH ABG 7.46 (7.35-7.45); PO2 ABG 63 mmHg (65-108); SAT O2 ABG 92 % (92-99)
[2016-11-19 13:11] LABS: FIO2 ABG 30; PCO2 ABG 65 mmHg (35-46)
[2016-11-19] MEDS: ENOXAPARIN 40 MG/0.4 ML DISP.SYRIN. SQ SCH (13:30)
[2016-11-19] MEDS: DEXTROSE 50% 25 GM / 50ML DISP.SYRIN. IV PRN (17:36)
[2016-11-20 03:26] VITALS: BP 132/83
[2016-11-20] MEDS: HYDROCORTISONE SOD SUCC/PF 100 MG/2 ML VIAL. IV SCH ×3 (05:33→22:35)
[2016-11-20 07:00] VITALS: BP 142/88
[2016-11-20] MEDS: IPRATRPIUM/ALBUTEROL 0.5/2.5MG 3 ML NEBU. NEB SCH ×5 (07:20→19:19)
[2016-11-20] MEDS: INSULIN ASPART 300 UNITS/3 ML INSULN.PEN SQ SCH ×3 (08:00→17:00)
[2016-11-20] MEDS: FAMOTIDINE 20 MG/2 ML VIAL IVP SCH ×2 (08:51→20:34)
[2016-11-20] MEDS: CHLORHEXIDINE 0.12% 15 ML MOUTHWASH. MM SCH (08:51)
--- NOTE | 2016-11-20 09:01 | PDOC ---
PULMONARY PROGRESS NOTES Subjective extubated 11/18 PT FEEL BETTER LESS SOA Vitals Vital Signs Date Time Temp Pulse Resp B/P Pulse Ox O2 Delivery O2 Flow Rate FiO2 11/20/16 07:20 100 BiPAP/CPAP 11/20/16 07:00 97.3 99 24 142/88 97.3 11/19/16 21:30 3.0 General: Alert, No acute distress Lungs: Other (decrease bs) Cardiovascular: S1, S2 Abdomen: Soft, Non-tender Neuro Exam: Alert Extremities: No Edema Skin: Warm, Dry Labs Laboratory Tests Test 11/18/16 10:00 11/18/16 11:49 11/18/16 12:45 11/18/16 18:21 O2 Saturation 92% (92-99) 93% (92-99) Arterial Blood pH 7.39 (7.35-7.45) 7.48 (7.35-7.45) Arterial Blood pCO2 at Patient Temp 79mmHg (35-46) 68mmHg (35-46) Arterial Blood pO2 at Patient Temp 65mmHg (65-108) 65mmHg (65-108) Arterial Blood HCO3 47mmol/L (21-28) 49mmol/L (21-28) Arterial Blood Base Excess 18mmol/L (-3-3) 22mmol/L (-3-3) FiO2 40 30 Glucose (Fingerstick) 118mg/dL (70-99) 99mg/dL (70-99) Test 11/18/16 20:29 11/19/16 05:10 11/19/16 12:58 11/19/16 13:00 Glucose (Fingerstick) 92mg/dL (70-99) 86mg/dL (70-99) Sodium Level 147mmol/L (136-145) Potassium Level 3.2mmol/L (3.5-5.1) Chloride Level 104mmol/L (98-107) Carbon Dioxide Level 44mmol/L (21-32) Anion Gap (6-14) Blood Urea Nitrogen 17mg/dL (8-26) Creatinine 0.5mg/dL (0.7-1.3) Estimated GFR (Cockcroft-Gault) 197.2 Glucose Level 103mg/dL (70-99) Calcium Level 8.2mg/dL (8.5-10.1) O2 Saturation 92% (92-99) Arterial Blood pH 7.46 (7.35-7.45) Arterial Blood pCO2 at Patient Temp 65mmHg (35-46) Arterial Blood pO2 at Patient Temp 63mmHg (65-108) Arterial Blood HCO3 45mmol/L (21-28) Arterial Blood Base Excess 18mmol/L (-3-3) FiO2 30 Test 11/19/16 17:32 11/19/16 18:20 11/20/16 07:54 Glucose (Fingerstick) 56mg/dL (70-99) 111mg/dL (70-99) 94mg/dL (70-99) Laboratory Tests Test 11/19/16 12:58 11/19/16 13:00 11/19/16 17:32 11/19/16 18:20 Glucose (Fingerstick) 86mg/dL (70-99) 56mg/dL (70-99) 111mg/dL (70-99) O2 Saturation 92% (92-99) Arterial Blood pH 7.46 (7.35-7.45) Arterial Blood pCO2 at Patient Temp 65mmHg (35-46) Arterial Blood pO2 at Patient Temp 63mmHg (65-108) Arterial Blood HCO3 45mmol/L (21-28) Arterial Blood Base Excess 18mmol/L (-3-3) FiO2 30 Test 11/20/16 07:54 Glucose (Fingerstick) 94mg/dL (70-99) Medications Active Scripts Medications Dose Route/Sig Days Date Category Dose Instructions Morphine Sulfate 10 Mg/0.5 Ml Disp.syrin 5 Mg PO PRN Q3HRS PRN 11/11/16 Reported Duoneb 0.5-3(2.5) Mg/3 Ml (Albuterol/Ipratropium) 3 Ml Ampul.neb 3 Ml NEB PRN Q2HR PRN 11/11/16 Reported Prilosec (Omeprazole Magnesium) 10 Mg Suspdr.pkt 20 Mg PO DAILY 11/11/16 Reported Meloxicam 15 Mg Tablet 1 Tab PO DAILY 11/11/16 Reported Norvasc (Amlodipine Besylate) 5 Mg Tablet 1 Tab PO DAILY 11/11/16 Reported Miralax (Polyethylene Glycol 3350) 17 Gm Powd.pack 1 Packet PO DAILY PRN 11/11/16 Reported Symbicort 160-4.5 Mcg Inhaler (Budesonide/Formoterol Fumarate) 10.2 Gm Hfa.aer.ad 2 Puff IH BID 11/11/16 Reported Cardizem Tablet (Diltiazem Hcl) 30 Mg Tablet 300 Mg PO DAILY 11/11/16 Reported Spironolactone 25 Mg Tablet 1 Tab PO DAILY 11/11/16 Reported Prednisone 10 Mg Tablet 10 Mg PO UD 11/11/16 Reported Take 3 tablets by mouth twice a day for 3 days, then take 2 tablets by mouth twice a day for 3 days, then take 1 tablet by mouth twice a day for 3 days, then take 1 tablet by mouth daily x 3 days, then stop. Oxycodone Hcl 20 Mg Tablet 20 Mg PO PRN QID PRN 06/13/16 Reported Bisacodyl 5 Mg Tablet.dr 5 Mg PO DAILY06 06/13/16 Reported Clonidine Hcl 0.3 Mg Tablet 0.3 Mg PO TID 12/28/13 Reported Comments cxr 11/17 resolved infiltrates Impression . 1. [id number] hypercapnic and hypoxic respiratory failure secondary possible gram pos and gram negative pneumonia and septic shock. resolved 2. 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 3. Kmfhb-sg-[id number] renal failure. 4. Severe protein-calorie malnutrition. 5. Bilateral infiltrates consistent with pneumonia. resolve by CXR 6. Recent echo with normal ejection fraction. 7. Septic shock off pressors Plan . extubated 11/18, POSSIBLE HOME TRILOGY Will place on VM/ BIPAP qhs and prn antibx will be de-escalated further, only on levaquin now off pressors DVT and GI prophylaxis speech LIGIA Aquino MD Nov 20, 2016 09:01
--- NOTE | 2016-11-20 09:47 | PDOC ---
PROGRESS NOTES Subjective Subjective Pt easily aroused, on BiPAP. Pt nods yes and no for communication. Denies pain when asked. Objective Objective Pt easily aroused. Pt on BiPAP at 4L. Afebrile. Vital Signs Date Time Temp Pulse Resp B/P Pulse Ox O2 Delivery O2 Flow Rate FiO2 11/20/16 07:20 100 BiPAP/CPAP 11/20/16 07:00 97.3 99 24 142/88 4.0 97.3 Intake and Output 11/20/16 06:59 Intake Total 1086 ml Output Total 1675 ml Balance -589 ml Intake Oral 0 ml IV Total 1086 ml Output Urine Total 1675 ml Assessment Assessment Problems Medical Problems: (1) Acute and chronic respiratory failure ([id number]) Status: Acute (2) HCAP (healthcare-associated pneumonia) Status: Acute (3) Hyperkalemia Status: Acute (4) Respiratory failure Status: Acute (5) Septic shock Status: Acute Plan Plan of Care 1. Respiratory failure secondary to pneumonia with underlying COPD -extubated, now on BiPAP, stable with continuous BiPAP -transfered out of ICU on 11/19 -swallow study today to begin oral diet -pt on Levaquin IV -pt on steroids IV -Pulmonary consulting 2. Hypokalemia -K+ increased in IVF on 11/19 -BMP this am pending Pt is a hospice patient with a DNR and DNI. Palliative care consulting. Comment Review of Relevant I have reviewed the following items edwin (where applicable) has been applied. Labs Laboratory Tests Test 11/18/16 10:00 11/18/16 11:49 11/18/16 12:45 11/18/16 18:21 O2 Saturation 92% (92-99) 93% (92-99) Arterial Blood pH 7.39 (7.35-7.45) 7.48 (7.35-7.45) Arterial Blood pCO2 at Patient Temp 79mmHg (35-46) 68mmHg (35-46) Arterial Blood pO2 at Patient Temp 65mmHg (65-108) 65mmHg (65-108) Arterial Blood HCO3 47mmol/L (21-28) 49mmol/L (21-28) Arterial Blood Base Excess 18mmol/L (-3-3) 22mmol/L (-3-3) FiO2 40 30 Glucose (Fingerstick) 118mg/dL (70-99) 99mg/dL (70-99) Test 11/18/16 20:29 11/19/16 05:10 11/19/16 12:58 11/19/16 13:00 Glucose (Fingerstick) 92mg/dL (70-99) 86mg/dL (70-99) Sodium Level 147mmol/L (136-145) Potassium Level 3.2mmol/L (3.5-5.1) Chloride Level 104mmol/L (98-107) Carbon Dioxide Level 44mmol/L (21-32) Anion Gap (6-14) Blood Urea Nitrogen 17mg/dL (8-26) Creatinine 0.5mg/dL (0.7-1.3) Estimated GFR (Cockcroft-Gault) 197.2 Glucose Level 103mg/dL (70-99) Calcium Level 8.2mg/dL (8.5-10.1) O2 Saturation 92% (92-99) Arterial Blood pH 7.46 (7.35-7.45) Arterial Blood pCO2 at Patient Temp 65mmHg (35-46) Arterial Blood pO2 at Patient Temp 63mmHg (65-108) Arterial Blood HCO3 45mmol/L (21-28) Arterial Blood Base Excess 18mmol/L (-3-3) FiO2 30 Test 11/19/16 17:32 11/19/16 18:20 11/20/16 07:54 Glucose (Fingerstick) 56mg/dL (70-99) 111mg/dL (70-99) 94mg/dL (70-99) Laboratory Tests Test 11/19/16 12:58 11/19/16 13:00 11/19/16 17:32 11/19/16 18:20 Glucose (Fingerstick) 86mg/dL (70-99) 56mg/dL (70-99) 111mg/dL (70-99) O2 Saturation 92% (92-99) Arterial Blood pH 7.46 (7.35-7.45) Arterial Blood pCO2 at Patient Temp 65mmHg (35-46) Arterial Blood pO2 at Patient Temp 63mmHg (65-108) Arterial Blood HCO3 45mmol/L (21-28) Arterial Blood Base Excess 18mmol/L (-3-3) FiO2 30 Test 11/20/16 07:54 Glucose (Fingerstick) 94mg/dL (70-99) Microbiology 11/11/16 Blood Culture - Final, Complete NO GROWTH AFTER 5 DAYS Medications Current Medications Sodium Chloride 1,000 ml @ 1,000 mls/hr 1X ONCE IV Last administered on 11/11at 08:43; Start 11/11/16 at 09:00; Stop 11/11/16 at 09:59; Status DC Sodium Chloride (Iv Sodium Chloride 0.9% 1000ml Bag) 1,000 ml @ 1,000 mls/hr 1X ONCE IV Last administered on 11/11/16at 08:42; Start 11/11/16 at 08:45; Stop 11/11/16 at 09:44; Status DC Etomidate (Amidate) 20 mg 1X ONCE IV Last administered on 11/11/16at 08:45; Start 11/11/16 at 08:45; Stop 11/11/16 at 08:46; Status DC Succinylcholine Chloride 100 mg 100 mg 1X ONCE IV Last administered on at 08:45; Start 11/11/16 at 08:45; Stop 11/11/16 at 08:46; Status DC Fentanyl Citrate (Fentanyl 600 Mcg/30 ml NCA CERTIFIED CONCIERGE) 30 ml @ 0 mls/hr CONT PRN IV PROTOCOL; Start 11/11/16 at 08:45; Stop 11/19/16 at 10:33; Status DC Fentanyl Citrate (Fentanyl 2ml Vial) 50 mcg PRN Q1HR PRN IV COMM; Start at 08:45 Chlorhexidine Gluconate (Peridex) 15 ml BID MM Last administered on 11/20/16at 08:51; Start 11/11/16 at 21:00 Famotidine (Pepcid) 20 mg BID IVP ; Start 11/11/16 at 21:00; Stop 11/11/16 at 21:00; Status DC Morphine Sulfate 4 mg PRN Q1HR PRN IV COMM; Start 11/11/16 at 08:45 Midazolam HCl 1 mg 1 mg PRN Q30MIN PRN IV COMM Last administered on 11/11/16at 09:15; Start 11/11/16 at 08:45; Stop 11/19/16 at 10:33; Status DC Midazolam HCl (Versed 100mg/ 100ml Premix) 100 ml @ 0 mls/hr CONT PRN IV PER PROTOCOL Last administered on 11/12/16at 23:36; Start 11/11/16 at 08:45; Stop 11/19/16 at 10:33; Status DC Vancomycin HCl (Vanco Per Pharmacy) 1 each PRN DAILY PRN MC SEE COMMENTS Last administered on 11/16/16at 08:47; Start 11/11/16 at 09:30; Stop 11/17/16 at 14 :03; Status DC Piperacillin Sod/ Tazobactam Sod (Zosyn Per Pharmacy) 1 each PRN DAILY PRN MC SEE COMMENTS; Start 11/11/16 at 09:30; Status Cancel Levofloxacin/ Dextrose 1 each 1 each PRN DAILY PRN MC SEE COMMENTS; Start at 09:30; Stop 11/19/16 at 10:35; Status DC Sodium Chloride 1,000 ml @ 1,000 mls/hr 1X ONCE IV Last administered on 11/11at 09:37; Start 11/11/16 at 09:30; Stop 11/11/16 at 10:29; Status DC Vancomycin HCl 1.25 gm/Sodium Chloride 250 ml @ 166.667 mls/hr 1X ONCE IV Last administered on 11/11/16at 10:54; Start 11/11/16 at 09:45; Stop 11/11/16 at 11:14; Status DC Piperacillin Sod/ Tazobactam Sod 4.5 gm/Sodium Chloride 100 ml @ 200 mls/hr 1X ONCE IV Last administered on 11/11/16at 09:55; Start 11/11/16 at 09:45; Stop 11/11/16 at 10:14; Status DC Levofloxacin/ Dextrose 150 ml @ 100 mls/hr 1X ONCE IV ; Start 11/11/16 at 09: 45; Stop 11/11/16 at 11:14; Status DC Norepinephrine Bitartrate 250 ml @ 0 mls/hr 1X ONCE IV Last administered on at 09:45; Start 11/11/16 at 09:45; Stop 11/11/16 at 09:46; Status DC Levofloxacin/ Dextrose 150 ml @ 100 mls/hr Q48H IV Last administered on at 10:45; Start 11/13/16 at 10:00; Stop 11/15/16 at 14:00; Status DC Piperacillin Sod/ Tazobactam Sod/ Sodium Chloride (Zosyn/Iv Sodium Chloride 0.9 % 50ml) 50 ml @ 100 mls/hr Q6HRS IV Last administered on 11/15/16at 12:58; Start 11/11/16 at 18:00; Stop 11/15/16 at 14:03; Status DC Dextrose 25 gm 1X ONCE IV Last administered on 11/11/16at 10:55; Start at 10:15; Stop 11/11/16 at 10:17; Status DC Insulin Human Regular 10 unit 10 unit 1X ONCE IV Last administered on at 11:28; Start 11/11/16 at 10:15; Stop 11/11/16 at 10:17; Status DC Calcium Chloride/ Sodium Chloride (Iv Sodium Chloride 0.9% 50ml) 60 ml @ 120 mls/hr 1X ONCE IV Last administered on 11/11/16at 10:55; Start 11/11/16 at 10 :30; Stop 11/11/16 at 10:59; Status DC Albuterol Sulfate (Ventolin Neb Soln) 2.5 mg 1X ONCE NEB ; Start 11/11/16 at 10:15; Stop 11/11/16 at 10:17; Status DC Ondansetron HCl (Zofran) 4 mg PRN Q8HRS PRN IV NAUSEA/VOMITING; Start at 10:30; Stop 11/12/16 at 10:29; Status DC Acetaminophen (Tylenol) 650 mg PRN Q4HRS PRN PO FEVER Last administered on at 21:53; Start 11/11/16 at 10:30; Stop 11/12/16 at 10:29; Status DC Hydrocortisone Sodium Succinate (Solu-Cortef) 100 mg Q8HRS IV Last administered on 11/18/16at 14:48; Start 11/11/16 at 14:00; Stop 11/18/16 at 17 :38; Status DC Enoxaparin Sodium (Lovenox 30mg Syringe) 30 mg Q24H SQ Last administered on at 12:15; Start 11/11/16 at 12:00; Stop 11/13/16 at 09:13; Status DC Midazolam HCl 5 mg 5 mg STK-MED ONCE .ROUTE ; Start 11/11/16 at 11:15; Stop at 11:16; Status DC Vancomycin HCl/ Sodium Chloride (Iv Sodium Chloride 0.9% 250ml) 250 ml @ 250 mls/hr Q24H IV Last administered on 11/12/16at 10:57; Start 11/12/16 at 11:00 ; Stop 11/13/16 at 13:07; Status DC Vancomycin HCl 1 each 1X ONCE MC ; Start 11/13/16 at 10:30; Stop 11/13/16 at 10:31; Status DC Famotidine 20 mg 20 mg QHS IVP Last administered on 11/16/16at 21:41; Start at 21:00; Stop 11/17/16 at 13:25; Status DC Norepinephrine Bitartrate (Levophed 8mg/ 250ml Premix Drip) 250 ml @ 0 mls/hr CONT PRN IV SEE I/O RECORD Last administered on 11/11/16at 17:08; Start at 13:30 Sodium Polystyrene Sulfonate 30 gm 30 gm 1X ONCE PO Last administered on 11/11at 18:13; Start 11/11/16 at 17:45; Stop 11/11/16 at 17:46; Status DC Sodium Chloride (Iv Sodium Chloride 0.9% 1000ml Bag) 1,000 ml @ 100 mls/hr Q10H IV Last administered on 11/12/16at 23:36; Start 11/11/16 at 17:45; Stop 11/13/16 at 21:27; Status DC Albuterol/ Ipratropium (Duoneb) 3 ml RTQID NEB Last administered on 11/20/16at 07:20; Start 11/12/16 at 17:00 Enoxaparin Sodium 40 mg 40 mg Q24H SQ Last administered on 11/19/16at 13:30; Start 11/13/16 at 12:00 Vancomycin HCl 750 mg/Sodium Chloride 250 ml @ 250 mls/hr Q12H IV Last administered on 11/15/16at 02:38; Start 11/13/16 at 14:00; Stop 11/15/16 at 13 :58; Status DC Potassium Chloride/Dextrose/ Sod Cl (KCl 20 Meq In D5W-NS) 1,000 ml @ 75 mls/ hr [id number] IV Last administered on 11/15/16at 03:57; Start 11/14/16 at 09:45; Stop 11/15/16 at 11:12; Status DC Vancomycin HCl 1 each 1 each 1X ONCE MC Last administered on 11/15/16at 13:30 ; Start 11/15/16 at 13:30; Stop 11/15/16 at 13:31; Status DC Propofol (Diprivan) 100 ml @ 0 mls/hr CONT PRN IV SEE I/O RECORD Last administered on 11/18/16at 01:50; Start 11/14/16 at 10:45; Stop 11/19/16 at 10 :33; Status DC Sodium Chloride (Normal Saline Flush) 10 ml QSHIFT PRN IV AFTER MEDS AND BLOOD DRAWS; Start 11/15/16 at 10:00; Stop 11/15/16 at 10:00; Status DC Sodium Chloride (Normal Saline Flush) 10 ml PRN Q5MIN PRN IV AFTER MEDS AND BLOOD DRAWS; Start 11/15/16 at 10:00 Sodium Chloride 20 ml 20 ml PRN Q5MIN PRN IV AFTER MEDS AND BLOOD DRAWS; Start 11/15/16 at 10:00 Potassium Chloride/Dextrose/ Sod Cl (KCl 20 Meq In D5W-1/2 NS) 1,000 ml @ 80 mls/hr 1X ONCE IV Last administered on 11/15/16at 13:01; Start 11/15/16 at 11 :15; Stop 11/15/16 at 23:44; Status DC Insulin Aspart (Novolog) 0-7 UNITS TIDWMEALS SQ Last administered on at 09:15; Start 11/15/16 at 17:00 Dextrose 12.5 gm 12.5 gm PRN Q15MIN PRN IV SEE COMMENTS Last administered on at 17:36; Start 11/15/16 at 12:45 Vancomycin HCl 1 gm/Sodium Chloride 250 ml @ 250 mls/hr Q12H IV Last administered on 11/17/16at 02:13; Start 11/15/16 at 14:00; Stop 11/17/16 at 14 :03; Status DC Levofloxacin/ Dextrose 150 ml @ 100 mls/hr Q24H IV Last administered on at 09:11; Start 11/16/16 at 10:00; Stop 11/18/16 at 11:11; Status DC Piperacillin Sod/ Tazobactam Sod 4.5 gm/Sodium Chloride 100 ml @ 200 mls/hr Q6HRS IV Last administered on 11/17/16at 10:57; Start 11/15/16 at 18:00; Stop 11/17/16 at 14:04; Status DC Potassium Chloride/Dextrose/ Sod Cl (KCl 20 Meq In D5W-1/2 NS) 1,000 ml @ 80 mls/hr [id number] IV Last administered on 11/19/16at 21:17; Start 11/16/16 at 07: 00 Famotidine (Pepcid) 20 mg Q12HR IVP Last administered on 11/20/16at 08:51; Start 11/17/16 at 21:00 Hydrocortisone Sodium Succinate (Solu-Cortef) 25 mg Q8HRS IV Last administered on 11/20/16at 05:33; Start 11/18/16 at 22:00 Active Scripts Active Reported Morphine Sulfate 10 Mg/0.5 Ml Disp.syrin 5 Mg PO PRN Q3HRS PRN Duoneb 0.5-3(2.5) Mg/3 Ml (Albuterol/Ipratropium) 3 Ml Ampul.neb 3 Ml NEB PRN Q2HR PRN Prilosec (Omeprazole Magnesium) 10 Mg Suspdr.pkt 20 Mg PO DAILY Meloxicam 15 Mg Tablet 1 Tab PO DAILY Norvasc (Amlodipine Besylate) 5 Mg Tablet 1 Tab PO DAILY Miralax (Polyethylene Glycol 3350) 17 Gm Powd.pack 1 Packet PO DAILY PRN Symbicort 160-4.5 Mcg Inhaler (Budesonide/Formoterol Fumarate) 10.2 Gm Hfa.aer.ad 2 Puff IH BID Cardizem Tablet (Diltiazem Hcl) 30 Mg Tablet 300 Mg PO DAILY Spironolactone 25 Mg Tablet 1 Tab PO DAILY Prednisone 10 Mg Tablet 10 Mg PO UD Take 3 tablets by mouth twice a day for 3 days, then take 2 tablets by mouth twice a day for 3 days, then take 1 tablet by mouth twice a day for 3 days, then take 1 tablet by mouth daily x 3 days, then stop. Oxycodone Hcl 20 Mg Tablet 20 Mg PO PRN QID PRN Bisacodyl 5 Mg Tablet.dr 5 Mg PO DAILY06 Clonidine Hcl 0.3 Mg Tablet 0.3 Mg PO TID Vitals/I & O Vital Sign - Last 24 Hours 11/19/16 11/19/16 11/19/16 11/19/16 10:57 12:00 15:35 16:00 Temp 98.1 98.4 98.1 98.4 Pulse 94 112 Resp 19 19 B/P 145/95 140/90 Pulse Ox 99 98 100 99 O2 Delivery Venturi Mask Venturi Mask Nasal Cannula Nasal Cannula O2 Flow Rate 6.0 2.0 3.0 11/19/16 11/19/16 11/19/16 11/19/16 19:04 21:23 21:30 23:25 Temp 97.4 97.6 97.4 97.6 Pulse 98 98 Resp 22 20 B/P 148/94 140/91 Pulse Ox 100 99 98 O2 Delivery BiPAP/CPAP Nasal Cannula Nasal Cannula BiPAP/CPAP O2 Flow Rate 4.0 3.0 11/19/16 11/20/16 11/20/16 11/20/16 23:45 02:12 03:26 04:30 Temp 97.5 97.5 Pulse 94 Resp 22 B/P 132/83 Pulse Ox 100 100 97 100 O2 Delivery BiPAP/CPAP BiPAP/CPAP Nasal Cannula BiPAP/CPAP 11/20/16 11/20/16 07:00 07:20 Temp 97.3 97.3 Pulse 99 Resp 24 B/P 142/88 Pulse Ox 98 100 O2 Delivery Nasal Cannula BiPAP/CPAP O2 Flow Rate 4.0 Intake and Output 11/19/16 11/19/16 11/20/16 14:59 22:59 06:59 Intake Total 1086 ml Output Total 1675 ml Balance -589 ml VIOLET MORTON MD Nov 20, 2016 09:47
[2016-11-20 10:33] LABS: BLOOD UREA NITROGEN 12 mg/dL (8-26); CALCIUM 8.3 mg/dL (8.5-10.1); CARBON DIOXIDE 42 mmol/L (21-32); CHLORIDE 101 mmol/L (98-107); CREATININE 0.5 mg/dL (0.7-1.3); GFR 197.2; GLUCOSE 107 mg/dL (70-99); POTASSIUM 3.2 mmol/L (3.5-5.1); SODIUM 140 mmol/L (136-145)
[2016-11-20 11:00] VITALS: BP 144/91
[2016-11-20] MEDS: ENOXAPARIN 40 MG/0.4 ML DISP.SYRIN. SQ SCH (11:58)
[2016-11-20] MEDS: POTASSIUM CL 20MEQ D5-0.45NACL 1,000 ML IV SCH (11:59)
[2016-11-20 15:00] VITALS: BP 145/90
[2016-11-20 19:00] VITALS: BP 149/87
[2016-11-20 22:54] VITALS: BP 124/83
[2016-11-21] VITALS (7 sets, daily range): BP systolic 130–160; BP diastolic 90–100
[2016-11-21] MEDS: POTASSIUM CL 20MEQ D5-0.45NACL 1,000 ML IV SCH ×2 (01:15→12:00)
[2016-11-21] MEDS: HYDROCORTISONE SOD SUCC/PF 100 MG/2 ML VIAL. IV SCH ×2 (06:14→14:03)
[2016-11-21] MEDS: IPRATRPIUM/ALBUTEROL 0.5/2.5MG 3 ML NEBU. NEB SCH ×3 (07:44→15:52)
[2016-11-21] MEDS: INSULIN ASPART 300 UNITS/3 ML INSULN.PEN SQ SCH ×3 (08:00→16:50)
[2016-11-21 08:18] LABS: BASO % 0 % (0-3); EOS % 0 % (0-3); HEMATOCRIT 40.4 % (39.0-53.0); HEMOGLOBIN 12.7 g/dL (13.0-17.5); LYMPH # 1.1 x10^3/uL (1.0-4.8); LYMPH % 8 % (24-48); MEAN CORPUSCULAR HEMOGLOBIN 29 pg (25-35); MEAN CORPUSCULAR HGB CONC 31 g/dL (31-37); MEAN CORPUSCULAR VOLUME 91 fL (79-100); MONO % 2 % (0-9); NEUT % 89 % (31-73); PLATELET COUNT 117 x10^3/uL (140-400); RED BLOOD COUNT 4.42 x10^6/uL (4.30-5.70); WHITE BLOOD COUNT 12.8 x10^3/uL (4.0-11.0)
[2016-11-21 08:31] LABS: CALCIUM 8.4 mg/dL (8.5-10.1); CREATININE 0.5 mg/dL (0.7-1.3); GFR 197.2; POTASSIUM 3.3 mmol/L (3.5-5.1)
--- NOTE | 2016-11-21 09:48 | PDOC ---
PULMONARY PROGRESS NOTES Subjective PT FEELS BETTER LESS SOA WORE BIPAP LAST ANJALI Vitals Vital Signs Date Time Temp Pulse Resp B/P Pulse Ox O2 Delivery O2 Flow Rate FiO2 11/21/16 08:29 97.6 107 24 145/100 96 Nasal Cannula 4.0 97.6 General: Alert, No acute distress Lungs: Other (decrease bs) Cardiovascular: S1, S2 Abdomen: Soft, Non-tender Neuro Exam: Alert Extremities: No Edema Skin: Warm, Dry Labs Laboratory Tests Test 11/19/16 12:58 11/19/16 13:00 11/19/16 17:32 11/19/16 18:20 Glucose (Fingerstick) 86mg/dL (70-99) 56mg/dL (70-99) 111mg/dL (70-99) O2 Saturation 92% (92-99) Arterial Blood pH 7.46 (7.35-7.45) Arterial Blood pCO2 at Patient Temp 65mmHg (35-46) Arterial Blood pO2 at Patient Temp 63mmHg (65-108) Arterial Blood HCO3 45mmol/L (21-28) Arterial Blood Base Excess 18mmol/L (-3-3) FiO2 30 Test 11/20/16 07:54 11/20/16 10:10 11/20/16 11:45 11/20/16 20:28 Glucose (Fingerstick) 94mg/dL (70-99) 82mg/dL (70-99) 106mg/dL (70-99) Sodium Level 140mmol/L (136-145) Potassium Level 3.2mmol/L (3.5-5.1) Chloride Level 101mmol/L (98-107) Carbon Dioxide Level 42mmol/L (21-32) Anion Gap (6-14) Blood Urea Nitrogen 12mg/dL (8-26) Creatinine 0.5mg/dL (0.7-1.3) Estimated GFR (Cockcroft-Gault) 197.2 Glucose Level 107mg/dL (70-99) Calcium Level 8.3mg/dL (8.5-10.1) Test 11/21/16 07:20 11/21/16 08:00 Glucose (Fingerstick) 90mg/dL (70-99) White Blood Count 12.8x10^3/uL (4.0-11.0) Red Blood Count 4.42x10^6/uL (4.30-5.70) Hemoglobin 12.7g/dL (13.0-17.5) Hematocrit 40.4% (39.0-53.0) Mean Corpuscular Volume 91fL (79-100) Mean Corpuscular Hemoglobin 29pg (25-35) Mean Corpuscular Hemoglobin Concent 31g/dL (31-37) Red Cell Distribution Width 13.0% (11.5-14.5) Platelet Count 117x10^3/uL (140-400) Neutrophils (%) (Auto) 89% (31-73) Lymphocytes (%) (Auto) 8% (24-48) Monocytes (%) (Auto) 2% (0-9) Eosinophils (%) (Auto) 0% (0-3) Basophils (%) (Auto) 0% (0-3) Neutrophils # (Auto) 11.4x10^3uL (1.8-7.7) Lymphocytes # (Auto) 1.1x10^3/uL (1.0-4.8) Monocytes # (Auto) 0.3x10^3/uL (0.0-1.1) Eosinophils # (Auto) 0.0x10^3/uL (0.0-0.7) Basophils # (Auto) 0.0x10^3/uL (0.0-0.2) Sodium Level 143mmol/L (136-145) Potassium Level 3.3mmol/L (3.5-5.1) Chloride Level 99mmol/L (98-107) Carbon Dioxide Level 44mmol/L (21-32) Anion Gap 0 (6-14) Blood Urea Nitrogen 8mg/dL (8-26) Creatinine 0.5mg/dL (0.7-1.3) Estimated GFR (Cockcroft-Gault) 197.2 Glucose Level 97mg/dL (70-99) Calcium Level 8.4mg/dL (8.5-10.1) Laboratory Tests Test 11/20/16 10:10 11/20/16 11:45 11/20/16 20:28 11/21/16 07:20 Sodium Level 140mmol/L (136-145) Potassium Level 3.2mmol/L (3.5-5.1) Chloride Level 101mmol/L (98-107) Carbon Dioxide Level 42mmol/L (21-32) Anion Gap (6-14) Blood Urea Nitrogen 12mg/dL (8-26) Creatinine 0.5mg/dL (0.7-1.3) Estimated GFR (Cockcroft-Gault) 197.2 Glucose Level 107mg/dL (70-99) Calcium Level 8.3mg/dL (8.5-10.1) Glucose (Fingerstick) 82mg/dL (70-99) 106mg/dL (70-99) 90mg/dL (70-99) Test 11/21/16 08:00 White Blood Count 12.8x10^3/uL (4.0-11.0) Red Blood Count 4.42x10^6/uL (4.30-5.70) Hemoglobin 12.7g/dL (13.0-17.5) Hematocrit 40.4% (39.0-53.0) Mean Corpuscular Volume 91fL (79-100) Mean Corpuscular Hemoglobin 29pg (25-35) Mean Corpuscular Hemoglobin Concent 31g/dL (31-37) Red Cell Distribution Width 13.0% (11.5-14.5) Platelet Count 117x10^3/uL (140-400) Neutrophils (%) (Auto) 89% (31-73) Lymphocytes (%) (Auto) 8% (24-48) Monocytes (%) (Auto) 2% (0-9) Eosinophils (%) (Auto) 0% (0-3) Basophils (%) (Auto) 0% (0-3) Neutrophils # (Auto) 11.4x10^3uL (1.8-7.7) Lymphocytes # (Auto) 1.1x10^3/uL (1.0-4.8) Monocytes # (Auto) 0.3x10^3/uL (0.0-1.1) Eosinophils # (Auto) 0.0x10^3/uL (0.0-0.7) Basophils # (Auto) 0.0x10^3/uL (0.0-0.2) Sodium Level 143mmol/L (136-145) Potassium Level 3.3mmol/L (3.5-5.1) Chloride Level 99mmol/L (98-107) Carbon Dioxide Level 44mmol/L (21-32) Anion Gap 0 (6-14) Blood Urea Nitrogen 8mg/dL (8-26) Creatinine 0.5mg/dL (0.7-1.3) Estimated GFR (Cockcroft-Gault) 197.2 Glucose Level 97mg/dL (70-99) Calcium Level 8.4mg/dL (8.5-10.1) Medications Active Scripts Medications Dose Route/Sig Days Date Category Dose Instructions Morphine Sulfate 10 Mg/0.5 Ml Disp.syrin 5 Mg PO PRN Q3HRS PRN 11/11/16 Reported Duoneb 0.5-3(2.5) Mg/3 Ml (Albuterol/Ipratropium) 3 Ml Ampul.neb 3 Ml NEB PRN Q2HR PRN 11/11/16 Reported Prilosec (Omeprazole Magnesium) 10 Mg Suspdr.pkt 20 Mg PO DAILY 11/11/16 Reported Meloxicam 15 Mg Tablet 1 Tab PO DAILY 11/11/16 Reported Norvasc (Amlodipine Besylate) 5 Mg Tablet 1 Tab PO DAILY 11/11/16 Reported Miralax (Polyethylene Glycol 3350) 17 Gm Powd.pack 1 Packet PO DAILY PRN 11/11/16 Reported Symbicort 160-4.5 Mcg Inhaler (Budesonide/Formoterol Fumarate) 10.2 Gm Hfa.aer.ad 2 Puff IH BID 11/11/16 Reported Cardizem Tablet (Diltiazem Hcl) 30 Mg Tablet 300 Mg PO DAILY 11/11/16 Reported Spironolactone 25 Mg Tablet 1 Tab PO DAILY 11/11/16 Reported Prednisone 10 Mg Tablet 10 Mg PO UD 11/11/16 Reported Take 3 tablets by mouth twice a day for 3 days, then take 2 tablets by mouth twice a day for 3 days, then take 1 tablet by mouth twice a day for 3 days, then take 1 tablet by mouth daily x 3 days, then stop. Oxycodone Hcl 20 Mg Tablet 20 Mg PO PRN QID PRN 06/13/16 Reported Bisacodyl 5 Mg Tablet.dr 5 Mg PO DAILY06 06/13/16 Reported Clonidine Hcl 0.3 Mg Tablet 0.3 Mg PO TID 12/28/13 Reported Comments cxr 11/17 resolved infiltrates Impression . 1. Cgrmg-ii-hvpqjbg hypercapnic and hypoxic respiratory failure secondary possible gram pos and gram negative pneumonia and septic shock. resolved 2. 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 3. Qwomm-fm-pwcdkhu renal failure. 4. Severe protein-calorie malnutrition. 5. Bilateral infiltrates consistent with pneumonia. resolve by CXR 6. Recent echo with normal ejection fraction. 7. Septic shock off pressors Plan . WILL CHECK TO SEE IF QUALIFIES FOR HOME TRILOGY FOLLOW SPEECH RECOMMENDATION PT/OT D/C LIGIA GARCÍA MD Nov 21, 2016 09:48
[2016-11-21] MEDS: FAMOTIDINE 20 MG/2 ML VIAL IVP SCH ×2 (10:00→20:44)
--- NOTE | 2016-11-21 10:23 | PDOC2 ---
GI CONSULT Reason For Consult: PEG HPI: HPI: 71 y/o AA male admitted on 11/11/16 w/ acute on chronic respiratory failure 2/2 pneumonia and COPD requiring intubation. He has since been extubated (11/18) and is now on O2 via nasal cannula w/ pulmonology following. Unfortunately, he failed a swallow evaluation. I have reviewed his chart and discussed w/ his RN ; it seems he has been Hospice for COPD but now he and his daughter would like to proceed w/ aggressive care and consider PEG placement for nutrition, hence GI consult. He is alone in his room this morning. He denies significant GI history including GERD, PUD, diarrhea, constipation, abdominal pain, bleeding. No previous EGD or colonoscopy. PMH: PMH: COPD, HTN, prostate cancer s/p prostatectomy, right knee surgery, writs surgery FH: Family History: No pertinent hx Social History: Smoke: Quit ALCOHOL: none Drugs: None ROS: GEN: Denies fevers, chills, sweats HEENT: Denies blurred vision, sore throat CV: Denies chest pain RESP: +SOA GI: Per HPI : Denies hematuria, dysuria ENDO: +weight loss NEURO: Denies confusion, dizziness MSK: +weakness SKIN: Denies jaundice, pruritus VItals: Vitals: Vital Signs Date Time Temp Pulse Resp B/P Pulse Ox O2 Delivery O2 Flow Rate FiO2 11/21/16 08:29 97.6 107 24 145/100 96 Nasal Cannula 4.0 97.6 Labs: Labs: Laboratory Tests Test 11/20/16 10:10 11/20/16 11:45 11/20/16 20:28 11/21/16 07:20 Sodium Level 140mmol/L (136-145) Potassium Level 3.2mmol/L (3.5-5.1) Chloride Level 101mmol/L (98-107) Carbon Dioxide Level 42mmol/L (21-32) Anion Gap (6-14) Blood Urea Nitrogen 12mg/dL (8-26) Creatinine 0.5mg/dL (0.7-1.3) Estimated GFR (Cockcroft-Gault) 197.2 Glucose Level 107mg/dL (70-99) Calcium Level 8.3mg/dL (8.5-10.1) Glucose (Fingerstick) 82mg/dL (70-99) 106mg/dL (70-99) 90mg/dL (70-99) Test 11/21/16 08:00 White Blood Count 12.8x10^3/uL (4.0-11.0) Red Blood Count 4.42x10^6/uL (4.30-5.70) Hemoglobin 12.7g/dL (13.0-17.5) Hematocrit 40.4% (39.0-53.0) Mean Corpuscular Volume 91fL (79-100) Mean Corpuscular Hemoglobin 29pg (25-35) Mean Corpuscular Hemoglobin Concent 31g/dL (31-37) Red Cell Distribution Width 13.0% (11.5-14.5) Platelet Count 117x10^3/uL (140-400) Neutrophils (%) (Auto) 89% (31-73) Lymphocytes (%) (Auto) 8% (24-48) Monocytes (%) (Auto) 2% (0-9) Eosinophils (%) (Auto) 0% (0-3) Basophils (%) (Auto) 0% (0-3) Neutrophils # (Auto) 11.4x10^3uL (1.8-7.7) Lymphocytes # (Auto) 1.1x10^3/uL (1.0-4.8) Monocytes # (Auto) 0.3x10^3/uL (0.0-1.1) Eosinophils # (Auto) 0.0x10^3/uL (0.0-0.7) Basophils # (Auto) 0.0x10^3/uL (0.0-0.2) Sodium Level 143mmol/L (136-145) Potassium Level 3.3mmol/L (3.5-5.1) Chloride Level 99mmol/L (98-107) Carbon Dioxide Level 44mmol/L (21-32) Anion Gap 0 (6-14) Blood Urea Nitrogen 8mg/dL (8-26) Creatinine 0.5mg/dL (0.7-1.3) Estimated GFR (Cockcroft-Gault) 197.2 Glucose Level 97mg/dL (70-99) Calcium Level 8.4mg/dL (8.5-10.1) Allergies: Coded Allergies: lisinopril (Verified Allergy, Intermediate, 06/11/16) Medications: Please see EMR. Imaging: Imaging: Please see EMR for CXRs. 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 Pt intubated 11/11-11/18/2016, now slightly > 24hrs p.extubation. IMPRESSIONS: Laryngeal dysfunction as evidenced by severely breathy phonation and cough as well as impaired hyolaryngeal excursion at swallow. Pt's swallow is incomplete per palp. Wet breathing and subtle wet exhalation (weak cough) noted p.swallow of single ice chip. Current s/s of poor airway closure and protection are c/w pt's recent hx of 1 wk.intubation and prior hx of end stage COPD. Prognosis for improvement is poor given severity of dysphagia and co- morbidities. May require long-term non-oral if c/w goals of care. Note pt was previously on hospice and may not wish to pursue same. RECOMMENDATIONS: NPO meds and nutrition. Will f/u to advance to po if indicated. PE: GEN: looks ill, thin HEENT: Atraumatic, PERRL LUNGS: very poor air movement bilaterally anteriorly w/ nasal cannula HEART: tachcyardic ABD: NABS, S/ND/NT EXTREMITY: No edema SKIN: No rashes, no jaundice NEURO/PSYCH: A & O 3, speech is a bit difficult to understand A/P: A/P: Acute on chronic respiratory failure w/ pneumonia and COPD -s/p extubated 11/18 -has been on Hospice Dysphagia, failed swallow study -NPO, GI consult for PEG CRC screen -no previous colonoscopy -- Has been (?is) on Hospice for severe COPD. Considering PEG placement, increased procedure risk w/ resp status. D/w pt, RN. No plans for EGD/PEG today; Dr. Lopes will see later to discuss further. PA MACDONALD Nov 21, 2016 10:23
--- NOTE | 2016-11-21 10:30 | PDOC ---
PROGRESS NOTES Subjective Subjective Pt easily aroused. Nods yes or no to questions. Denies pain. Objective Objective Pt awake. VSS. Afebrile. Vital Signs Date Time Temp Pulse Resp B/P Pulse Ox O2 Delivery O2 Flow Rate FiO2 11/21/16 08:29 97.6 107 24 145/100 96 Nasal Cannula 4.0 97.6 Intake and Output 11/21/16 06:59 Intake Total 0 ml Output Total 5900 ml Balance -5900 ml Intake Oral 0 ml Output Urine Total 5900 ml Assessment Assessment Problems Medical Problems: (1) Acute and chronic respiratory failure ([id number]) Status: Acute (2) HCAP (healthcare-associated pneumonia) Status: Acute (3) Hyperkalemia Status: Acute (4) Respiratory failure Status: Acute (5) Septic shock Status: Acute Plan Plan of Care 1. Respiratory failure secondary to pneumonia with underlying COPD -extubated, now on BiPAP, stable with continuous BiPAP -transfered out of ICU on 11/19 -failed swallow study on 11/20 -family agreed to feeding tuber - placement today -pt on Levaquin IV -pt on steroids IV -Pulmonary consulting 2. Hypokalemia -K+ 3.3 this am -Add 10mEq of KCl to IVF making total dose 30mEq -Recheck BMP in am PT eval and treatment. Pt is a hospice patient with a DNR and DNI. Palliative care consulting. Comment Review of Relevant I have reviewed the following items edwin (where applicable) has been applied. Labs Laboratory Tests Test 11/19/16 12:58 11/19/16 13:00 11/19/16 17:32 11/19/16 18:20 Glucose (Fingerstick) 86mg/dL (70-99) 56mg/dL (70-99) 111mg/dL (70-99) O2 Saturation 92% (92-99) Arterial Blood pH 7.46 (7.35-7.45) Arterial Blood pCO2 at Patient Temp 65mmHg (35-46) Arterial Blood pO2 at Patient Temp 63mmHg (65-108) Arterial Blood HCO3 45mmol/L (21-28) Arterial Blood Base Excess 18mmol/L (-3-3) FiO2 30 Test 11/20/16 07:54 11/20/16 10:10 11/20/16 11:45 11/20/16 20:28 Glucose (Fingerstick) 94mg/dL (70-99) 82mg/dL (70-99) 106mg/dL (70-99) Sodium Level 140mmol/L (136-145) Potassium Level 3.2mmol/L (3.5-5.1) Chloride Level 101mmol/L (98-107) Carbon Dioxide Level 42mmol/L (21-32) Anion Gap (6-14) Blood Urea Nitrogen 12mg/dL (8-26) Creatinine 0.5mg/dL (0.7-1.3) Estimated GFR (Cockcroft-Gault) 197.2 Glucose Level 107mg/dL (70-99) Calcium Level 8.3mg/dL (8.5-10.1) Test 11/21/16 07:20 11/21/16 08:00 Glucose (Fingerstick) 90mg/dL (70-99) White Blood Count 12.8x10^3/uL (4.0-11.0) Red Blood Count 4.42x10^6/uL (4.30-5.70) Hemoglobin 12.7g/dL (13.0-17.5) Hematocrit 40.4% (39.0-53.0) Mean Corpuscular Volume 91fL (79-100) Mean Corpuscular Hemoglobin 29pg (25-35) Mean Corpuscular Hemoglobin Concent 31g/dL (31-37) Red Cell Distribution Width 13.0% (11.5-14.5) Platelet Count 117x10^3/uL (140-400) Neutrophils (%) (Auto) 89% (31-73) Lymphocytes (%) (Auto) 8% (24-48) Monocytes (%) (Auto) 2% (0-9) Eosinophils (%) (Auto) 0% (0-3) Basophils (%) (Auto) 0% (0-3) Neutrophils # (Auto) 11.4x10^3uL (1.8-7.7) Lymphocytes # (Auto) 1.1x10^3/uL (1.0-4.8) Monocytes # (Auto) 0.3x10^3/uL (0.0-1.1) Eosinophils # (Auto) 0.0x10^3/uL (0.0-0.7) Basophils # (Auto) 0.0x10^3/uL (0.0-0.2) Sodium Level 143mmol/L (136-145) Potassium Level 3.3mmol/L (3.5-5.1) Chloride Level 99mmol/L (98-107) Carbon Dioxide Level 44mmol/L (21-32) Anion Gap 0 (6-14) Blood Urea Nitrogen 8mg/dL (8-26) Creatinine 0.5mg/dL (0.7-1.3) Estimated GFR (Cockcroft-Gault) 197.2 Glucose Level 97mg/dL (70-99) Calcium Level 8.4mg/dL (8.5-10.1) Laboratory Tests Test 11/20/16 11:45 11/20/16 20:28 11/21/16 07:20 11/21/16 08:00 Glucose (Fingerstick) 82mg/dL (70-99) 106mg/dL (70-99) 90mg/dL (70-99) White Blood Count 12.8x10^3/uL (4.0-11.0) Red Blood Count 4.42x10^6/uL (4.30-5.70) Hemoglobin 12.7g/dL (13.0-17.5) Hematocrit 40.4% (39.0-53.0) Mean Corpuscular Volume 91fL (79-100) Mean Corpuscular Hemoglobin 29pg (25-35) Mean Corpuscular Hemoglobin Concent 31g/dL (31-37) Red Cell Distribution Width 13.0% (11.5-14.5) Platelet Count 117x10^3/uL (140-400) Neutrophils (%) (Auto) 89% (31-73) Lymphocytes (%) (Auto) 8% (24-48) Monocytes (%) (Auto) 2% (0-9) Eosinophils (%) (Auto) 0% (0-3) Basophils (%) (Auto) 0% (0-3) Neutrophils # (Auto) 11.4x10^3uL (1.8-7.7) Lymphocytes # (Auto) 1.1x10^3/uL (1.0-4.8) Monocytes # (Auto) 0.3x10^3/uL (0.0-1.1) Eosinophils # (Auto) 0.0x10^3/uL (0.0-0.7) Basophils # (Auto) 0.0x10^3/uL (0.0-0.2) Sodium Level 143mmol/L (136-145) Potassium Level 3.3mmol/L (3.5-5.1) Chloride Level 99mmol/L (98-107) Carbon Dioxide Level 44mmol/L (21-32) Anion Gap 0 (6-14) Blood Urea Nitrogen 8mg/dL (8-26) Creatinine 0.5mg/dL (0.7-1.3) Estimated GFR (Cockcroft-Gault) 197.2 Glucose Level 97mg/dL (70-99) Calcium Level 8.4mg/dL (8.5-10.1) Microbiology 11/11/16 Blood Culture - Final, Complete NO GROWTH AFTER 5 DAYS Medications Current Medications Sodium Chloride 1,000 ml @ 1,000 mls/hr 1X ONCE IV Last administered on 11/11at 08:43; Start 11/11/16 at 09:00; Stop 11/11/16 at 09:59; Status DC Sodium Chloride (Iv Sodium Chloride 0.9% 1000ml Bag) 1,000 ml @ 1,000 mls/hr 1X ONCE IV Last administered on 11/11/16at 08:42; Start 11/11/16 at 08:45; Stop 11/11/16 at 09:44; Status DC Etomidate (Amidate) 20 mg 1X ONCE IV Last administered on 11/11/16at 08:45; Start 11/11/16 at 08:45; Stop 11/11/16 at 08:46; Status DC Succinylcholine Chloride 100 mg 100 mg 1X ONCE IV Last administered on at 08:45; Start 11/11/16 at 08:45; Stop 11/11/16 at 08:46; Status DC Fentanyl Citrate (Fentanyl 600 Mcg/30 ml GRADE FOREMAN) 30 ml @ 0 mls/hr CONT PRN IV PROTOCOL; Start 11/11/16 at 08:45; Stop 11/19/16 at 10:33; Status DC Fentanyl Citrate (Fentanyl 2ml Vial) 50 mcg PRN Q1HR PRN IV COMM; Start at 08:45 Chlorhexidine Gluconate (Peridex) 15 ml BID MM Last administered on 11/20/16at 08:51; Start 11/11/16 at 21:00; Stop 11/20/16 at 15:18; Status DC Famotidine (Pepcid) 20 mg BID IVP ; Start 11/11/16 at 21:00; Stop 11/11/16 at 21:00; Status DC Morphine Sulfate 4 mg PRN Q1HR PRN IV COMM; Start 11/11/16 at 08:45 Midazolam HCl 1 mg 1 mg PRN Q30MIN PRN IV COMM Last administered on 11/11/16at 09:15; Start 11/11/16 at 08:45; Stop 11/19/16 at 10:33; Status DC Midazolam HCl (Versed 100mg/ 100ml Premix) 100 ml @ 0 mls/hr CONT PRN IV PER PROTOCOL Last administered on 11/12/16at 23:36; Start 11/11/16 at 08:45; Stop 11/19/16 at 10:33; Status DC Vancomycin HCl (Vanco Per Pharmacy) 1 each PRN DAILY PRN MC SEE COMMENTS Last administered on 11/16/16at 08:47; Start 11/11/16 at 09:30; Stop 11/17/16 at 14 :03; Status DC Piperacillin Sod/ Tazobactam Sod (Zosyn Per Pharmacy) 1 each PRN DAILY PRN MC SEE COMMENTS; Start 11/11/16 at 09:30; Status Cancel Levofloxacin/ Dextrose 1 each 1 each PRN DAILY PRN MC SEE COMMENTS; Start at 09:30; Stop 11/19/16 at 10:35; Status DC Sodium Chloride 1,000 ml @ 1,000 mls/hr 1X ONCE IV Last administered on 11/11at 09:37; Start 11/11/16 at 09:30; Stop 11/11/16 at 10:29; Status DC Vancomycin HCl 1.25 gm/Sodium Chloride 250 ml @ 166.667 mls/hr 1X ONCE IV Last administered on 11/11/16at 10:54; Start 11/11/16 at 09:45; Stop 11/11/16 at 11:14; Status DC Piperacillin Sod/ Tazobactam Sod 4.5 gm/Sodium Chloride 100 ml @ 200 mls/hr 1X ONCE IV Last administered on 11/11/16at 09:55; Start 11/11/16 at 09:45; Stop 11/11/16 at 10:14; Status DC Levofloxacin/ Dextrose 150 ml @ 100 mls/hr 1X ONCE IV ; Start 11/11/16 at 09: 45; Stop 11/11/16 at 11:14; Status DC Norepinephrine Bitartrate 250 ml @ 0 mls/hr 1X ONCE IV Last administered on at 09:45; Start 11/11/16 at 09:45; Stop 11/11/16 at 09:46; Status DC Levofloxacin/ Dextrose 150 ml @ 100 mls/hr Q48H IV Last administered on at 10:45; Start 11/13/16 at 10:00; Stop 11/15/16 at 14:00; Status DC Piperacillin Sod/ Tazobactam Sod/ Sodium Chloride (Zosyn/Iv Sodium Chloride 0.9 % 50ml) 50 ml @ 100 mls/hr Q6HRS IV Last administered on 11/15/16at 12:58; Start 11/11/16 at 18:00; Stop 11/15/16 at 14:03; Status DC Dextrose 25 gm 1X ONCE IV Last administered on 11/11/16at 10:55; Start at 10:15; Stop 11/11/16 at 10:17; Status DC Insulin Human Regular 10 unit 10 unit 1X ONCE IV Last administered on at 11:28; Start 11/11/16 at 10:15; Stop 11/11/16 at 10:17; Status DC Calcium Chloride/ Sodium Chloride (Iv Sodium Chloride 0.9% 50ml) 60 ml @ 120 mls/hr 1X ONCE IV Last administered on 11/11/16at 10:55; Start 11/11/16 at 10 :30; Stop 11/11/16 at 10:59; Status DC Albuterol Sulfate (Ventolin Neb Soln) 2.5 mg 1X ONCE NEB ; Start 11/11/16 at 10:15; Stop 11/11/16 at 10:17; Status DC Ondansetron HCl (Zofran) 4 mg PRN Q8HRS PRN IV NAUSEA/VOMITING; Start at 10:30; Stop 11/12/16 at 10:29; Status DC Acetaminophen (Tylenol) 650 mg PRN Q4HRS PRN PO FEVER Last administered on at 21:53; Start 11/11/16 at 10:30; Stop 11/12/16 at 10:29; Status DC Hydrocortisone Sodium Succinate (Solu-Cortef) 100 mg Q8HRS IV Last administered on 11/18/16at 14:48; Start 11/11/16 at 14:00; Stop 11/18/16 at 17 :38; Status DC Enoxaparin Sodium (Lovenox 30mg Syringe) 30 mg Q24H SQ Last administered on at 12:15; Start 11/11/16 at 12:00; Stop 11/13/16 at 09:13; Status DC Midazolam HCl 5 mg 5 mg STK-MED ONCE .ROUTE ; Start 11/11/16 at 11:15; Stop at 11:16; Status DC Vancomycin HCl/ Sodium Chloride (Iv Sodium Chloride 0.9% 250ml) 250 ml @ 250 mls/hr Q24H IV Last administered on 11/12/16at 10:57; Start 11/12/16 at 11:00 ; Stop 11/13/16 at 13:07; Status DC Vancomycin HCl 1 each 1X ONCE MC ; Start 11/13/16 at 10:30; Stop 11/13/16 at 10:31; Status DC Famotidine 20 mg 20 mg QHS IVP Last administered on 11/16/16at 21:41; Start at 21:00; Stop 11/17/16 at 13:25; Status DC Norepinephrine Bitartrate (Levophed 8mg/ 250ml Premix Drip) 250 ml @ 0 mls/hr CONT PRN IV SEE I/O RECORD Last administered on 11/11/16at 17:08; Start at 13:30; Stop 11/20/16 at 15:18; Status DC Sodium Polystyrene Sulfonate 30 gm 30 gm 1X ONCE PO Last administered on 11/11at 18:13; Start 11/11/16 at 17:45; Stop 11/11/16 at 17:46; Status DC Sodium Chloride (Iv Sodium Chloride 0.9% 1000ml Bag) 1,000 ml @ 100 mls/hr Q10H IV Last administered on 11/12/16at 23:36; Start 11/11/16 at 17:45; Stop 11/13/16 at 21:27; Status DC Albuterol/ Ipratropium (Duoneb) 3 ml RTQID NEB Last administered on 11/21/16at 07:44; Start 11/12/16 at 17:00 Enoxaparin Sodium 40 mg 40 mg Q24H SQ Last administered on 11/20/16at 11:58; Start 11/13/16 at 12:00 Vancomycin HCl 750 mg/Sodium Chloride 250 ml @ 250 mls/hr Q12H IV Last administered on 11/15/16at 02:38; Start 11/13/16 at 14:00; Stop 11/15/16 at 13 :58; Status DC Potassium Chloride/Dextrose/ Sod Cl (KCl 20 Meq In D5W-NS) 1,000 ml @ 75 mls/ hr [id number] IV Last administered on 11/15/16at 03:57; Start 11/14/16 at 09:45; Stop 11/15/16 at 11:12; Status DC Vancomycin HCl 1 each 1 each 1X ONCE MC Last administered on 11/15/16at 13:30 ; Start 11/15/16 at 13:30; Stop 11/15/16 at 13:31; Status DC Propofol (Diprivan) 100 ml @ 0 mls/hr CONT PRN IV SEE I/O RECORD Last administered on 11/18/16at 01:50; Start 11/14/16 at 10:45; Stop 11/19/16 at 10 :33; Status DC Sodium Chloride (Normal Saline Flush) 10 ml QSHIFT PRN IV AFTER MEDS AND BLOOD DRAWS; Start 11/15/16 at 10:00; Stop 11/15/16 at 10:00; Status DC Sodium Chloride (Normal Saline Flush) 10 ml PRN Q5MIN PRN IV AFTER MEDS AND BLOOD DRAWS; Start 11/15/16 at 10:00 Sodium Chloride 20 ml 20 ml PRN Q5MIN PRN IV AFTER MEDS AND BLOOD DRAWS; Start 11/15/16 at 10:00 Potassium Chloride/Dextrose/ Sod Cl (KCl 20 Meq In D5W-1/2 NS) 1,000 ml @ 80 mls/hr 1X ONCE IV Last administered on 11/15/16at 13:01; Start 11/15/16 at 11 :15; Stop 11/15/16 at 23:44; Status DC Insulin Aspart (Novolog) 0-7 UNITS TIDWMEALS SQ Last administered on at 09:15; Start 11/15/16 at 17:00 Dextrose 12.5 gm 12.5 gm PRN Q15MIN PRN IV SEE COMMENTS Last administered on at 17:36; Start 11/15/16 at 12:45 Vancomycin HCl 1 gm/Sodium Chloride 250 ml @ 250 mls/hr Q12H IV Last administered on 11/17/16at 02:13; Start 11/15/16 at 14:00; Stop 11/17/16 at 14 :03; Status DC Levofloxacin/ Dextrose 150 ml @ 100 mls/hr Q24H IV Last administered on at 09:11; Start 11/16/16 at 10:00; Stop 11/18/16 at 11:11; Status DC Piperacillin Sod/ Tazobactam Sod 4.5 gm/Sodium Chloride 100 ml @ 200 mls/hr Q6HRS IV Last administered on 11/17/16at 10:57; Start 11/15/16 at 18:00; Stop 11/17/16 at 14:04; Status DC Potassium Chloride/Dextrose/ Sod Cl (KCl 20 Meq In D5W-1/2 NS) 1,000 ml @ 80 mls/hr [id number] IV Last administered on 11/21/16at 01:15; Start 11/16/16 at 07: 00 Famotidine (Pepcid) 20 mg Q12HR IVP Last administered on 11/21/16at 10:00; Start 11/17/16 at 21:00 Hydrocortisone Sodium Succinate (Solu-Cortef) 25 mg Q8HRS IV Last administered on 11/21/16at 06:14; Start 11/18/16 at 22:00 Albuterol Sulfate (Ventolin Neb Soln) 2.5 mg PRN Q2HRS PRN NEB SHORTNESS OF BREATH; Start 11/20/16 at 16:45 Active Scripts Active Reported Morphine Sulfate 10 Mg/0.5 Ml Disp.syrin 5 Mg PO PRN Q3HRS PRN Duoneb 0.5-3(2.5) Mg/3 Ml (Albuterol/Ipratropium) 3 Ml Ampul.neb 3 Ml NEB PRN Q2HR PRN Prilosec (Omeprazole Magnesium) 10 Mg Suspdr.pkt 20 Mg PO DAILY Meloxicam 15 Mg Tablet 1 Tab PO DAILY Norvasc (Amlodipine Besylate) 5 Mg Tablet 1 Tab PO DAILY Miralax (Polyethylene Glycol 3350) 17 Gm Powd.pack 1 Packet PO DAILY PRN Symbicort 160-4.5 Mcg Inhaler (Budesonide/Formoterol Fumarate) 10.2 Gm Hfa.aer.ad 2 Puff IH BID Cardizem Tablet (Diltiazem Hcl) 30 Mg Tablet 300 Mg PO DAILY Spironolactone 25 Mg Tablet 1 Tab PO DAILY Prednisone 10 Mg Tablet 10 Mg PO UD Take 3 tablets by mouth twice a day for 3 days, then take 2 tablets by mouth twice a day for 3 days, then take 1 tablet by mouth twice a day for 3 days, then take 1 tablet by mouth daily x 3 days, then stop. Oxycodone Hcl 20 Mg Tablet 20 Mg PO PRN QID PRN Bisacodyl 5 Mg Tablet.dr 5 Mg PO DAILY06 Clonidine Hcl 0.3 Mg Tablet 0.3 Mg PO TID Vitals/I & O Vital Sign - Last 24 Hours 11/20/16 11/20/16 11/20/16 11/20/16 10:55 11:00 12:00 15:00 Temp 97.6 97.7 97.6 97.7 Pulse 108 106 Resp 18 20 B/P 144/91 145/90 Pulse Ox 96 95 92 O2 Delivery Nasal Cannula Nasal Cannula Nasal Cannula O2 Flow Rate 4.0 4.0 4.0 4.0 11/20/16 11/20/16 11/20/16 11/20/16 15:22 16:00 16:37 19:00 Temp 97.5 97.5 Pulse 111 Resp 20 B/P 149/87 Pulse Ox 93 O2 Delivery Nasal Cannula Nasal Cannula Nasal Cannula O2 Flow Rate 4.0 4.0 4.0 3.0 11/20/16 11/20/16 11/20/16 11/20/16 19:21 19:22 20:00 21:00 Pulse Ox 94 94 O2 Delivery Nasal Cannula BiPAP/CPAP Nasal Cannula O2 Flow Rate 4.0 4.0 4.0 11/20/16 11/21/16 11/21/16 11/21/16 22:54 03:23 07:00 07:46 Temp 98.6 96.1 98.1 98.6 96.1 98.1 Pulse 112 110 107 Resp 16 20 18 B/P 124/83 130/94 149/97 Pulse Ox 92 92 90 91 O2 Delivery Nasal Cannula Nasal Cannula Nasal Cannula O2 Flow Rate 2.0 2.0 3.0 11/21/16 11/21/16 08:00 08:29 Temp 97.6 97.6 Pulse 107 Resp 24 B/P 145/100 Pulse Ox 96 O2 Delivery Room Air Nasal Cannula O2 Flow Rate 4.0 Intake and Output 11/20/16 11/20/16 11/21/16 14:59 22:59 06:59 Intake Total 0 ml Output Total 3300 ml 2600 ml Balance -3300 ml -2600 ml VIOLET MORTON MD Nov 21, 2016 10:30
[2016-11-21] MEDS ORDERED: POTASSIUM CHLORIDE 30 MEQ in IV 1/2 NORMAL SALINE 1,000 ML IV SCH (11:00)
[2016-11-21] MEDS: ENOXAPARIN 40 MG/0.4 ML DISP.SYRIN. SQ SCH (12:13)
[2016-11-21] MEDS: DEXTROSE 50% 25 GM / 50ML DISP.SYRIN. IV PRN (20:46)
[2016-11-21] MEDS: AA 3%/ELECTROLYTE-TPN SOLN/GLY 1,000 ML IV SCH (22:00)
[2016-11-22 03:13] VITALS: BP 141/95
[2016-11-22 07:07] LABS: CALCIUM 8.5 mg/dL (8.5-10.1); CREATININE 0.5 mg/dL (0.7-1.3); GFR 197.2; POTASSIUM 3.5 mmol/L (3.5-5.1)
[2016-11-22] MEDS: IPRATRPIUM/ALBUTEROL 0.5/2.5MG 3 ML NEBU. NEB SCH ×4 (07:11→20:50)
[2016-11-22 07:15] VITALS: BP 161/96
[2016-11-22] MEDS: DEXTROSE 50% 25 GM / 50ML DISP.SYRIN. IV PRN ×2 (07:55→17:46)
[2016-11-22] MEDS: INSULIN ASPART 300 UNITS/3 ML INSULN.PEN SQ SCH ×3 (08:00→17:00)
[2016-11-22] MEDS: FAMOTIDINE 20 MG/2 ML VIAL IVP SCH ×2 (08:03→20:39)
--- NOTE | 2016-11-22 10:05 | PDOC ---
Subjective: Subjective: Pt w/o complaints. Objective: Objective: RN present, PPN started overnight. Vital Signs: Vital Signs Date Time Temp Pulse Resp B/P Pulse Ox O2 Delivery O2 Flow Rate FiO2 11/22/16 07:15 97.7 105 18 161/96 95 Nasal Cannula 3.0 97.7 Labs: Laboratory Tests Test 11/21/16 11:09 11/21/16 17:04 11/21/16 20:23 11/22/16 05:00 Glucose (Fingerstick) 119mg/dL 84mg/dL 78mg/dL Sodium Level 145mmol/L Potassium Level 3.5mmol/L Chloride Level 100mmol/L Carbon Dioxide Level 43mmol/L Anion Gap 2 Blood Urea Nitrogen 8mg/dL Creatinine 0.5mg/dL Estimated GFR (Cockcroft-Gault) 197.2 Glucose Level 78mg/dL Calcium Level 8.5mg/dL Test 11/22/16 07:32 11/22/16 08:58 Glucose (Fingerstick) 72mg/dL 116mg/dL PE: GEN: NAD LUNGS: poor air movement, less labored compared to yesterday's exam HEART: tachycardic ABD: S/ND/NT NEURO/PSYCH: A & O 3 A/P: Resp failure w/ COPD, pneumonia -Hospice -failed swallow study after extubation Dysphagia -NPO on PPN -- Pt/family understand increased risk w/ PEG placement; have chosen to hold off on PEG and await repeat swallow eval. Spoke w/ pt's girlfriend and daughter ( via phone) yesterday. Will follow. PA MACDONALD Nov 22, 2016 10:05
--- NOTE | 2016-11-22 11:05 | PDOC ---
PULMONARY PROGRESS NOTES Subjective PT NOT FEELING BETTER TODAY Vitals Vital Signs Date Time Temp Pulse Resp B/P Pulse Ox O2 Delivery O2 Flow Rate FiO2 11/22/16 07:15 97.7 105 18 161/96 95 Nasal Cannula 3.0 97.7 General: Alert Lungs: Other (decrease bs) Cardiovascular: S1, S2 Abdomen: Soft, Non-tender Neuro Exam: Alert Extremities: No Edema Skin: Warm, Dry Labs Laboratory Tests Test 11/20/16 11:45 11/20/16 20:28 11/21/16 07:20 11/21/16 08:00 Glucose (Fingerstick) 82mg/dL (70-99) 106mg/dL (70-99) 90mg/dL (70-99) White Blood Count 12.8x10^3/uL (4.0-11.0) Red Blood Count 4.42x10^6/uL (4.30-5.70) Hemoglobin 12.7g/dL (13.0-17.5) Hematocrit 40.4% (39.0-53.0) Mean Corpuscular Volume 91fL (79-100) Mean Corpuscular Hemoglobin 29pg (25-35) Mean Corpuscular Hemoglobin Concent 31g/dL (31-37) Red Cell Distribution Width 13.0% (11.5-14.5) Platelet Count 117x10^3/uL (140-400) Neutrophils (%) (Auto) 89% (31-73) Lymphocytes (%) (Auto) 8% (24-48) Monocytes (%) (Auto) 2% (0-9) Eosinophils (%) (Auto) 0% (0-3) Basophils (%) (Auto) 0% (0-3) Neutrophils # (Auto) 11.4x10^3uL (1.8-7.7) Lymphocytes # (Auto) 1.1x10^3/uL (1.0-4.8) Monocytes # (Auto) 0.3x10^3/uL (0.0-1.1) Eosinophils # (Auto) 0.0x10^3/uL (0.0-0.7) Basophils # (Auto) 0.0x10^3/uL (0.0-0.2) Sodium Level 143mmol/L (136-145) Potassium Level 3.3mmol/L (3.5-5.1) Chloride Level 99mmol/L (98-107) Carbon Dioxide Level 44mmol/L (21-32) Anion Gap 0 (6-14) Blood Urea Nitrogen 8mg/dL (8-26) Creatinine 0.5mg/dL (0.7-1.3) Estimated GFR (Cockcroft-Gault) 197.2 Glucose Level 97mg/dL (70-99) Calcium Level 8.4mg/dL (8.5-10.1) Test 11/21/16 11:09 11/21/16 17:04 11/21/16 20:23 11/22/16 05:00 Glucose (Fingerstick) 119mg/dL (70-99) 84mg/dL (70-99) 78mg/dL (70-99) Sodium Level 145mmol/L (136-145) Potassium Level 3.5mmol/L (3.5-5.1) Chloride Level 100mmol/L (98-107) Carbon Dioxide Level 43mmol/L (21-32) Anion Gap 2 (6-14) Blood Urea Nitrogen 8mg/dL (8-26) Creatinine 0.5mg/dL (0.7-1.3) Estimated GFR (Cockcroft-Gault) 197.2 Glucose Level 78mg/dL (70-99) Calcium Level 8.5mg/dL (8.5-10.1) Test 11/22/16 07:32 11/22/16 08:58 Glucose (Fingerstick) 72mg/dL (70-99) 116mg/dL (70-99) Laboratory Tests Test 11/21/16 11:09 11/21/16 17:04 11/21/16 20:23 11/22/16 05:00 Glucose (Fingerstick) 119mg/dL (70-99) 84mg/dL (70-99) 78mg/dL (70-99) Sodium Level 145mmol/L (136-145) Potassium Level 3.5mmol/L (3.5-5.1) Chloride Level 100mmol/L (98-107) Carbon Dioxide Level 43mmol/L (21-32) Anion Gap 2 (6-14) Blood Urea Nitrogen 8mg/dL (8-26) Creatinine 0.5mg/dL (0.7-1.3) Estimated GFR (Cockcroft-Gault) 197.2 Glucose Level 78mg/dL (70-99) Calcium Level 8.5mg/dL (8.5-10.1) Test 11/22/16 07:32 11/22/16 08:58 Glucose (Fingerstick) 72mg/dL (70-99) 116mg/dL (70-99) Medications Active Scripts Medications Dose Route/Sig Days Date Category Dose Instructions Morphine Sulfate 10 Mg/0.5 Ml Disp.syrin 5 Mg PO PRN Q3HRS PRN 11/11/16 Reported Duoneb 0.5-3(2.5) Mg/3 Ml (Albuterol/Ipratropium) 3 Ml Ampul.neb 3 Ml NEB PRN Q2HR PRN 11/11/16 Reported Prilosec (Omeprazole Magnesium) 10 Mg Suspdr.pkt 20 Mg PO DAILY 11/11/16 Reported Meloxicam 15 Mg Tablet 1 Tab PO DAILY 11/11/16 Reported Norvasc (Amlodipine Besylate) 5 Mg Tablet 1 Tab PO DAILY 11/11/16 Reported Miralax (Polyethylene Glycol 3350) 17 Gm Powd.pack 1 Packet PO DAILY PRN 11/11/16 Reported Symbicort 160-4.5 Mcg Inhaler (Budesonide/Formoterol Fumarate) 10.2 Gm Hfa.aer.ad 2 Puff IH BID 11/11/16 Reported Cardizem Tablet (Diltiazem Hcl) 30 Mg Tablet 300 Mg PO DAILY 11/11/16 Reported Spironolactone 25 Mg Tablet 1 Tab PO DAILY 11/11/16 Reported Prednisone 10 Mg Tablet 10 Mg PO UD 11/11/16 Reported Take 3 tablets by mouth twice a day for 3 days, then take 2 tablets by mouth twice a day for 3 days, then take 1 tablet by mouth twice a day for 3 days, then take 1 tablet by mouth daily x 3 days, then stop. Oxycodone Hcl 20 Mg Tablet 20 Mg PO PRN QID PRN 06/13/16 Reported Bisacodyl 5 Mg Tablet.dr 5 Mg PO DAILY06 06/13/16 Reported Clonidine Hcl 0.3 Mg Tablet 0.3 Mg PO TID 12/28/13 Reported Comments cxr 11/17 resolved infiltrates Impression . 1. Nnoqq-of-mcpzkwd hypercapnic and hypoxic respiratory failure secondary possible gram pos and gram negative pneumonia and septic shock. resolved 2. 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 3. Soqof-bq-aznisrc renal failure. 4. Severe protein-calorie malnutrition. 5. Bilateral infiltrates consistent with pneumonia. resolve by CXR 6. Recent echo with normal ejection fraction. 7. Septic shock off pressors Plan . TRILOGY FOR HOME PEG POSSIBLE FOLLOW SPEECH RECOMMENDATION PT/OT D/C STEROIDS LIGIA MOORE MD Nov 22, 2016 11:05
--- NOTE | 2016-11-22 11:05 | PDOC ---
PROGRESS NOTES Subjective Subjective Pt awake and pleasant. States he is feeling good. Denies pain. Objective Objective Pt awake and alert. NAD at rest. VSS. Pt remains on 3L of O2 per NC to maintain sats greater than 92%. Resp even and shallow. Lung sounds diminished. Vital Signs Date Time Temp Pulse Resp B/P Pulse Ox O2 Delivery O2 Flow Rate FiO2 11/22/16 07:15 97.7 105 18 161/96 95 Nasal Cannula 3.0 97.7 Intake and Output 11/22/16 07:00 Intake Total 0 ml Output Total 4350 ml Balance -4350 ml Intake Oral 0 ml Output Urine Total 4350 ml Assessment Assessment Problems Medical Problems: (1) Acute and chronic respiratory failure ([id number]) Status: Acute (2) HCAP (healthcare-associated pneumonia) Status: Acute (3) Hyperkalemia Status: Acute (4) Respiratory failure Status: Acute (5) Septic shock Status: Acute Plan Plan of Care 1. Respiratory failure secondary to pneumonia with underlying COPD -extubated on 11/18 -transfered out of ICU on 11/19 -failed swallow study on 11/20 -family agreed to feeding tuber - placement delayed on 11/21 d/t dyspnea, will attempt again today. -pt on Levaquin IV -pt on steroids IV -Pulmonary consulting 2. Hypokalemia -K+ 3.3 on 11/21, 3.5 this am -Added 10mEq of KCl to IVF making total dose 30mEq on 11/21 PT eval and treatment. Pt is a hospice patient with a DNR and DNI. Palliative care consulting. Comment Review of Relevant I have reviewed the following items edwin (where applicable) has been applied. Labs Laboratory Tests Test 11/20/16 11:45 11/20/16 20:28 11/21/16 07:20 11/21/16 08:00 Glucose (Fingerstick) 82mg/dL (70-99) 106mg/dL (70-99) 90mg/dL (70-99) White Blood Count 12.8x10^3/uL (4.0-11.0) Red Blood Count 4.42x10^6/uL (4.30-5.70) Hemoglobin 12.7g/dL (13.0-17.5) Hematocrit 40.4% (39.0-53.0) Mean Corpuscular Volume 91fL (79-100) Mean Corpuscular Hemoglobin 29pg (25-35) Mean Corpuscular Hemoglobin Concent 31g/dL (31-37) Red Cell Distribution Width 13.0% (11.5-14.5) Platelet Count 117x10^3/uL (140-400) Neutrophils (%) (Auto) 89% (31-73) Lymphocytes (%) (Auto) 8% (24-48) Monocytes (%) (Auto) 2% (0-9) Eosinophils (%) (Auto) 0% (0-3) Basophils (%) (Auto) 0% (0-3) Neutrophils # (Auto) 11.4x10^3uL (1.8-7.7) Lymphocytes # (Auto) 1.1x10^3/uL (1.0-4.8) Monocytes # (Auto) 0.3x10^3/uL (0.0-1.1) Eosinophils # (Auto) 0.0x10^3/uL (0.0-0.7) Basophils # (Auto) 0.0x10^3/uL (0.0-0.2) Sodium Level 143mmol/L (136-145) Potassium Level 3.3mmol/L (3.5-5.1) Chloride Level 99mmol/L (98-107) Carbon Dioxide Level 44mmol/L (21-32) Anion Gap 0 (6-14) Blood Urea Nitrogen 8mg/dL (8-26) Creatinine 0.5mg/dL (0.7-1.3) Estimated GFR (Cockcroft-Gault) 197.2 Glucose Level 97mg/dL (70-99) Calcium Level 8.4mg/dL (8.5-10.1) Test 11/21/16 11:09 11/21/16 17:04 11/21/16 20:23 11/22/16 05:00 Glucose (Fingerstick) 119mg/dL (70-99) 84mg/dL (70-99) 78mg/dL (70-99) Sodium Level 145mmol/L (136-145) Potassium Level 3.5mmol/L (3.5-5.1) Chloride Level 100mmol/L (98-107) Carbon Dioxide Level 43mmol/L (21-32) Anion Gap 2 (6-14) Blood Urea Nitrogen 8mg/dL (8-26) Creatinine 0.5mg/dL (0.7-1.3) Estimated GFR (Cockcroft-Gault) 197.2 Glucose Level 78mg/dL (70-99) Calcium Level 8.5mg/dL (8.5-10.1) Test 11/22/16 07:32 11/22/16 08:58 Glucose (Fingerstick) 72mg/dL (70-99) 116mg/dL (70-99) Laboratory Tests Test 11/21/16 11:09 11/21/16 17:04 11/21/16 20:23 11/22/16 05:00 Glucose (Fingerstick) 119mg/dL (70-99) 84mg/dL (70-99) 78mg/dL (70-99) Sodium Level 145mmol/L (136-145) Potassium Level 3.5mmol/L (3.5-5.1) Chloride Level 100mmol/L (98-107) Carbon Dioxide Level 43mmol/L (21-32) Anion Gap 2 (6-14) Blood Urea Nitrogen 8mg/dL (8-26) Creatinine 0.5mg/dL (0.7-1.3) Estimated GFR (Cockcroft-Gault) 197.2 Glucose Level 78mg/dL (70-99) Calcium Level 8.5mg/dL (8.5-10.1) Test 11/22/16 07:32 11/22/16 08:58 Glucose (Fingerstick) 72mg/dL (70-99) 116mg/dL (70-99) Microbiology 11/11/16 Blood Culture - Final, Complete NO GROWTH AFTER 5 DAYS Medications Current Medications Sodium Chloride 1,000 ml @ 1,000 mls/hr 1X ONCE IV Last administered on 11/11at 08:43; Start 11/11/16 at 09:00; Stop 11/11/16 at 09:59; Status DC Sodium Chloride (Iv Sodium Chloride 0.9% 1000ml Bag) 1,000 ml @ 1,000 mls/hr 1X ONCE IV Last administered on 11/11/16at 08:42; Start 11/11/16 at 08:45; Stop 11/11/16 at 09:44; Status DC Etomidate (Amidate) 20 mg 1X ONCE IV Last administered on 11/11/16at 08:45; Start 11/11/16 at 08:45; Stop 11/11/16 at 08:46; Status DC Succinylcholine Chloride 100 mg 100 mg 1X ONCE IV Last administered on at 08:45; Start 11/11/16 at 08:45; Stop 11/11/16 at 08:46; Status DC Fentanyl Citrate (Fentanyl 600 Mcg/30 ml ORDER MAKE UP CLERK) 30 ml @ 0 mls/hr CONT PRN IV PROTOCOL; Start 11/11/16 at 08:45; Stop 11/19/16 at 10:33; Status DC Fentanyl Citrate (Fentanyl 2ml Vial) 50 mcg PRN Q1HR PRN IV COMM; Start at 08:45 Chlorhexidine Gluconate (Peridex) 15 ml BID MM Last administered on 11/20/16at 08:51; Start 11/11/16 at 21:00; Stop 11/20/16 at 15:18; Status DC Famotidine (Pepcid) 20 mg BID IVP ; Start 11/11/16 at 21:00; Stop 11/11/16 at 21:00; Status DC Morphine Sulfate 4 mg PRN Q1HR PRN IV COMM; Start 11/11/16 at 08:45 Midazolam HCl 1 mg 1 mg PRN Q30MIN PRN IV COMM Last administered on 11/11/16at 09:15; Start 11/11/16 at 08:45; Stop 11/19/16 at 10:33; Status DC Midazolam HCl (Versed 100mg/ 100ml Premix) 100 ml @ 0 mls/hr CONT PRN IV PER PROTOCOL Last administered on 11/12/16at 23:36; Start 11/11/16 at 08:45; Stop 11/19/16 at 10:33; Status DC Vancomycin HCl (Vanco Per Pharmacy) 1 each PRN DAILY PRN MC SEE COMMENTS Last administered on 11/16/16at 08:47; Start 11/11/16 at 09:30; Stop 11/17/16 at 14 :03; Status DC Piperacillin Sod/ Tazobactam Sod (Zosyn Per Pharmacy) 1 each PRN DAILY PRN MC SEE COMMENTS; Start 11/11/16 at 09:30; Status Cancel Levofloxacin/ Dextrose 1 each 1 each PRN DAILY PRN MC SEE COMMENTS; Start at 09:30; Stop 11/19/16 at 10:35; Status DC Sodium Chloride 1,000 ml @ 1,000 mls/hr 1X ONCE IV Last administered on 11/11at 09:37; Start 11/11/16 at 09:30; Stop 11/11/16 at 10:29; Status DC Vancomycin HCl 1.25 gm/Sodium Chloride 250 ml @ 166.667 mls/hr 1X ONCE IV Last administered on 11/11/16at 10:54; Start 11/11/16 at 09:45; Stop 11/11/16 at 11:14; Status DC Piperacillin Sod/ Tazobactam Sod 4.5 gm/Sodium Chloride 100 ml @ 200 mls/hr 1X ONCE IV Last administered on 11/11/16at 09:55; Start 11/11/16 at 09:45; Stop 11/11/16 at 10:14; Status DC Levofloxacin/ Dextrose 150 ml @ 100 mls/hr 1X ONCE IV ; Start 11/11/16 at 09: 45; Stop 11/11/16 at 11:14; Status DC Norepinephrine Bitartrate 250 ml @ 0 mls/hr 1X ONCE IV Last administered on at 09:45; Start 11/11/16 at 09:45; Stop 11/11/16 at 09:46; Status DC Levofloxacin/ Dextrose 150 ml @ 100 mls/hr Q48H IV Last administered on at 10:45; Start 11/13/16 at 10:00; Stop 11/15/16 at 14:00; Status DC Piperacillin Sod/ Tazobactam Sod/ Sodium Chloride (Zosyn/Iv Sodium Chloride 0.9 % 50ml) 50 ml @ 100 mls/hr Q6HRS IV Last administered on 11/15/16at 12:58; Start 11/11/16 at 18:00; Stop 11/15/16 at 14:03; Status DC Dextrose 25 gm 1X ONCE IV Last administered on 11/11/16at 10:55; Start at 10:15; Stop 11/11/16 at 10:17; Status DC Insulin Human Regular 10 unit 10 unit 1X ONCE IV Last administered on at 11:28; Start 11/11/16 at 10:15; Stop 11/11/16 at 10:17; Status DC Calcium Chloride/ Sodium Chloride (Iv Sodium Chloride 0.9% 50ml) 60 ml @ 120 mls/hr 1X ONCE IV Last administered on 11/11/16at 10:55; Start 11/11/16 at 10 :30; Stop 11/11/16 at 10:59; Status DC Albuterol Sulfate (Ventolin Neb Soln) 2.5 mg 1X ONCE NEB ; Start 11/11/16 at 10:15; Stop 11/11/16 at 10:17; Status DC Ondansetron HCl (Zofran) 4 mg PRN Q8HRS PRN IV NAUSEA/VOMITING; Start at 10:30; Stop 11/12/16 at 10:29; Status DC Acetaminophen (Tylenol) 650 mg PRN Q4HRS PRN PO FEVER Last administered on at 21:53; Start 11/11/16 at 10:30; Stop 11/12/16 at 10:29; Status DC Hydrocortisone Sodium Succinate (Solu-Cortef) 100 mg Q8HRS IV Last administered on 11/18/16at 14:48; Start 11/11/16 at 14:00; Stop 11/18/16 at 17 :38; Status DC Enoxaparin Sodium (Lovenox 30mg Syringe) 30 mg Q24H SQ Last administered on at 12:15; Start 11/11/16 at 12:00; Stop 11/13/16 at 09:13; Status DC Midazolam HCl 5 mg 5 mg STK-MED ONCE .ROUTE ; Start 11/11/16 at 11:15; Stop at 11:16; Status DC Vancomycin HCl/ Sodium Chloride (Iv Sodium Chloride 0.9% 250ml) 250 ml @ 250 mls/hr Q24H IV Last administered on 11/12/16at 10:57; Start 11/12/16 at 11:00 ; Stop 11/13/16 at 13:07; Status DC Vancomycin HCl 1 each 1X ONCE MC ; Start 11/13/16 at 10:30; Stop 11/13/16 at 10:31; Status DC Famotidine 20 mg 20 mg QHS IVP Last administered on 11/16/16at 21:41; Start at 21:00; Stop 11/17/16 at 13:25; Status DC Norepinephrine Bitartrate (Levophed 8mg/ 250ml Premix Drip) 250 ml @ 0 mls/hr CONT PRN IV SEE I/O RECORD Last administered on 11/11/16at 17:08; Start at 13:30; Stop 11/20/16 at 15:18; Status DC Sodium Polystyrene Sulfonate 30 gm 30 gm 1X ONCE PO Last administered on 11/11at 18:13; Start 11/11/16 at 17:45; Stop 11/11/16 at 17:46; Status DC Sodium Chloride (Iv Sodium Chloride 0.9% 1000ml Bag) 1,000 ml @ 100 mls/hr Q10H IV Last administered on 11/12/16at 23:36; Start 11/11/16 at 17:45; Stop 11/13/16 at 21:27; Status DC Albuterol/ Ipratropium (Duoneb) 3 ml RTQID NEB Last administered on 11/22/16at 07:11; Start 11/12/16 at 17:00 Enoxaparin Sodium 40 mg 40 mg Q24H SQ Last administered on 11/21/16at 12:13; Start 11/13/16 at 12:00 Vancomycin HCl 750 mg/Sodium Chloride 250 ml @ 250 mls/hr Q12H IV Last administered on 11/15/16at 02:38; Start 11/13/16 at 14:00; Stop 11/15/16 at 13 :58; Status DC Potassium Chloride/Dextrose/ Sod Cl (KCl 20 Meq In D5W-NS) 1,000 ml @ 75 mls/ hr [id number] IV Last administered on 11/15/16at 03:57; Start 11/14/16 at 09:45; Stop 11/15/16 at 11:12; Status DC Vancomycin HCl 1 each 1 each 1X ONCE MC Last administered on 11/15/16at 13:30 ; Start 11/15/16 at 13:30; Stop 11/15/16 at 13:31; Status DC Propofol (Diprivan) 100 ml @ 0 mls/hr CONT PRN IV SEE I/O RECORD Last administered on 11/18/16at 01:50; Start 11/14/16 at 10:45; Stop 11/19/16 at 10 :33; Status DC Sodium Chloride (Normal Saline Flush) 10 ml QSHIFT PRN IV AFTER MEDS AND BLOOD DRAWS; Start 11/15/16 at 10:00; Stop 11/15/16 at 10:00; Status DC Sodium Chloride (Normal Saline Flush) 10 ml PRN Q5MIN PRN IV AFTER MEDS AND BLOOD DRAWS; Start 11/15/16 at 10:00 Sodium Chloride 20 ml 20 ml PRN Q5MIN PRN IV AFTER MEDS AND BLOOD DRAWS; Start 11/15/16 at 10:00 Potassium Chloride/Dextrose/ Sod Cl (KCl 20 Meq In D5W-1/2 NS) 1,000 ml @ 80 mls/hr 1X ONCE IV Last administered on 11/15/16at 13:01; Start 11/15/16 at 11 :15; Stop 11/15/16 at 23:44; Status DC Insulin Aspart (Novolog) 0-7 UNITS TIDWMEALS SQ Last administered on at 09:15; Start 11/15/16 at 17:00 Dextrose 12.5 gm 12.5 gm PRN Q15MIN PRN IV SEE COMMENTS Last administered on at 07:55; Start 11/15/16 at 12:45 Vancomycin HCl 1 gm/Sodium Chloride 250 ml @ 250 mls/hr Q12H IV Last administered on 11/17/16at 02:13; Start 11/15/16 at 14:00; Stop 11/17/16 at 14 :03; Status DC Levofloxacin/ Dextrose 150 ml @ 100 mls/hr Q24H IV Last administered on at 09:11; Start 11/16/16 at 10:00; Stop 11/18/16 at 11:11; Status DC Piperacillin Sod/ Tazobactam Sod 4.5 gm/Sodium Chloride 100 ml @ 200 mls/hr Q6HRS IV Last administered on 11/17/16at 10:57; Start 11/15/16 at 18:00; Stop 11/17/16 at 14:04; Status DC Potassium Chloride/Dextrose/ Sod Cl (KCl 20 Meq In D5W-1/2 NS) 1,000 ml @ 80 mls/hr [id number] IV Last administered on 11/21/16at 01:15; Start 11/16/16 at 07: 00; Stop 11/21/16 at 15:30; Status DC Famotidine (Pepcid) 20 mg Q12HR IVP Last administered on 11/22/16at 08:03; Start 11/17/16 at 21:00 Hydrocortisone Sodium Succinate (Solu-Cortef) 25 mg Q8HRS IV Last administered on 11/21/16at 14:03; Start 11/18/16 at 22:00; Stop 11/21/16 at 14:07; Status DC Albuterol Sulfate 2.5 mg 2.5 mg PRN Q2HRS PRN NEB SHORTNESS OF BREATH; Start 11/20/16 at 16:45 Potassium Chloride 30 meq/ Sodium Chloride 1,015 ml @ 80 mls/hr [id number] IV Last administered on 11/21/16at 12:13; Start 11/21/16 at 11:00; Stop 11/21/16 at 21:16; Status DC Amino Acids/ Glycerin/ Electrolytes (Procalamine) 1,000 ml @ 60 mls/hr [id number] IV Last administered on 11/21/16at 22:00; Start 11/21/16 at 22:00 Active Scripts Active Reported Morphine Sulfate 10 Mg/0.5 Ml Disp.syrin 5 Mg PO PRN Q3HRS PRN Duoneb 0.5-3(2.5) Mg/3 Ml (Albuterol/Ipratropium) 3 Ml Ampul.neb 3 Ml NEB PRN Q2HR PRN Prilosec (Omeprazole Magnesium) 10 Mg Suspdr.pkt 20 Mg PO DAILY Meloxicam 15 Mg Tablet 1 Tab PO DAILY Norvasc (Amlodipine Besylate) 5 Mg Tablet 1 Tab PO DAILY Miralax (Polyethylene Glycol 3350) 17 Gm Powd.pack 1 Packet PO DAILY PRN Symbicort 160-4.5 Mcg Inhaler (Budesonide/Formoterol Fumarate) 10.2 Gm Hfa.aer.ad 2 Puff IH BID Cardizem Tablet (Diltiazem Hcl) 30 Mg Tablet 300 Mg PO DAILY Spironolactone 25 Mg Tablet 1 Tab PO DAILY Prednisone 10 Mg Tablet 10 Mg PO UD Take 3 tablets by mouth twice a day for 3 days, then take 2 tablets by mouth twice a day for 3 days, then take 1 tablet by mouth twice a day for 3 days, then take 1 tablet by mouth daily x 3 days, then stop. Oxycodone Hcl 20 Mg Tablet 20 Mg PO PRN QID PRN Bisacodyl 5 Mg Tablet.dr 5 Mg PO DAILY06 Clonidine Hcl 0.3 Mg Tablet 0.3 Mg PO TID Vitals/I & O Vital Sign - Last 24 Hours 11/21/16 11/21/16 11/21/16 11/21/16 15:00 15:53 18:09 19:15 Temp 98.0 97.8 98.0 97.8 Pulse 107 105 Resp 20 18 B/P 140/92 160/90 Pulse Ox 94 95 O2 Delivery Room Air Nasal Cannula Nasal Cannula Room Air O2 Flow Rate 4.0 3.0 3.0 4.0 11/21/16 11/21/16 11/22/16 11/22/16 20:00 23:21 03:13 07:13 Temp 97.5 97.0 97.5 97.0 Pulse 111 112 Resp 20 20 B/P 158/98 141/95 Pulse Ox 96 93 93 O2 Delivery Nasal Cannula Nasal Cannula Nasal Cannula Nasal Cannula O2 Flow Rate 4.0 3.0 3.0 3.0 11/22/16 07:15 Temp 97.7 97.7 Pulse 105 Resp 18 B/P 161/96 Pulse Ox 95 O2 Delivery Nasal Cannula O2 Flow Rate 3.0 Intake and Output 11/21/16 11/21/16 11/22/16 15:00 23:00 07:00 Intake Total 0 ml Output Total 2350 ml 2000 ml Balance -2350 ml -2000 ml VIOLET MORTON MD Nov 22, 2016 11:05
[2016-11-22 11:11] VITALS: BP 131/99
[2016-11-22] MEDS: AA 3%/ELECTROLYTE-TPN SOLN/GLY 1,000 ML IV SCH (12:20)
[2016-11-22] MEDS: ENOXAPARIN 40 MG/0.4 ML DISP.SYRIN. SQ SCH (12:20)
[2016-11-22 15:15] VITALS: BP 128/89
[2016-11-22 19:59] VITALS: BP 141/91
[2016-11-22 23:59] VITALS: BP 143/96
[2016-11-23 03:00] VITALS: BP 129/79
[2016-11-23] MEDS: AA 3%/ELECTROLYTE-TPN SOLN/GLY 1,000 ML IV SCH (05:17)
[2016-11-23 07:00] VITALS: BP 145/97
[2016-11-23] MEDS: IPRATRPIUM/ALBUTEROL 0.5/2.5MG 3 ML NEBU. NEB SCH ×4 (07:27→19:44)
[2016-11-23] MEDS: INSULIN ASPART 300 UNITS/3 ML INSULN.PEN SQ SCH (08:00)
[2016-11-23] MEDS: FAMOTIDINE 20 MG/2 ML VIAL IVP SCH ×2 (08:49→20:46)
--- NOTE | 2016-11-23 10:57 | PDOC ---
Provider Note Provider Note vss, nmo temp- npo per failed swallow, peg may be needed if he fails again, procal until then- on trilogy and seem more comfortable- labs ok, dc lovenox in advance of peg BRIAN KIM MD Nov 23, 2016 10:57
[2016-11-23 11:00] VITALS: BP 133/86
[2016-11-23] MEDS: DEXTROSE 50% 25 GM / 50ML DISP.SYRIN. IV PRN ×2 (12:07→21:19)
[2016-11-23 15:00] VITALS: BP 122/74
--- NOTE | 2016-11-23 17:40 | PDOC ---
PULMONARY PROGRESS NOTES Subjective PT FEELS BETTER LESS SOA USED TRILOGY LAST ANJALI Vitals Vital Signs Date Time Temp Pulse Resp B/P Pulse Ox O2 Delivery O2 Flow Rate FiO2 11/23/16 15:16 Nasal Cannula 4.0 11/23/16 15:00 98.5 98 20 122/74 92 98.5 General: Alert Lungs: Other (decrease bs) Cardiovascular: S1, S2 Abdomen: Soft, Non-tender Neuro Exam: Alert Extremities: No Edema Skin: Warm, Dry Labs Laboratory Tests Test 11/21/16 20:23 11/22/16 05:00 11/22/16 07:32 11/22/16 08:58 Glucose (Fingerstick) 78mg/dL (70-99) 72mg/dL (70-99) 116mg/dL (70-99) Sodium Level 145mmol/L (136-145) Potassium Level 3.5mmol/L (3.5-5.1) Chloride Level 100mmol/L (98-107) Carbon Dioxide Level 43mmol/L (21-32) Anion Gap 2 (6-14) Blood Urea Nitrogen 8mg/dL (8-26) Creatinine 0.5mg/dL (0.7-1.3) Estimated GFR (Cockcroft-Gault) 197.2 Glucose Level 78mg/dL (70-99) Calcium Level 8.5mg/dL (8.5-10.1) Test 11/22/16 11:37 11/22/16 16:51 11/22/16 18:06 11/22/16 22:27 Glucose (Fingerstick) 85mg/dL (70-99) 74mg/dL (70-99) 104mg/dL (70-99) 79mg/dL (70-99) Test 11/23/16 07:47 11/23/16 11:44 11/23/16 12:28 11/23/16 16:43 Glucose (Fingerstick) 78mg/dL (70-99) 63mg/dL (70-99) 123mg/dL (70-99) 86mg/dL (70-99) Laboratory Tests Test 11/22/16 18:06 11/22/16 22:27 11/23/16 07:47 11/23/16 11:44 Glucose (Fingerstick) 104mg/dL (70-99) 79mg/dL (70-99) 78mg/dL (70-99) 63mg/dL (70-99) Test 11/23/16 12:28 11/23/16 16:43 Glucose (Fingerstick) 123mg/dL (70-99) 86mg/dL (70-99) Medications Active Scripts Medications Dose Route/Sig Days Date Category Dose Instructions Morphine Sulfate 10 Mg/0.5 Ml Disp.syrin 5 Mg PO PRN Q3HRS PRN 11/11/16 Reported Duoneb 0.5-3(2.5) Mg/3 Ml (Albuterol/Ipratropium) 3 Ml Ampul.neb 3 Ml NEB PRN Q2HR PRN 11/11/16 Reported Prilosec (Omeprazole Magnesium) 10 Mg Suspdr.pkt 20 Mg PO DAILY 11/11/16 Reported Meloxicam 15 Mg Tablet 1 Tab PO DAILY 11/11/16 Reported Norvasc (Amlodipine Besylate) 5 Mg Tablet 1 Tab PO DAILY 11/11/16 Reported Miralax (Polyethylene Glycol 3350) 17 Gm Powd.pack 1 Packet PO DAILY PRN 11/11/16 Reported Symbicort 160-4.5 Mcg Inhaler (Budesonide/Formoterol Fumarate) 10.2 Gm Hfa.aer.ad 2 Puff IH BID 11/11/16 Reported Cardizem Tablet (Diltiazem Hcl) 30 Mg Tablet 300 Mg PO DAILY 11/11/16 Reported Spironolactone 25 Mg Tablet 1 Tab PO DAILY 11/11/16 Reported Prednisone 10 Mg Tablet 10 Mg PO UD 11/11/16 Reported Take 3 tablets by mouth twice a day for 3 days, then take 2 tablets by mouth twice a day for 3 days, then take 1 tablet by mouth twice a day for 3 days, then take 1 tablet by mouth daily x 3 days, then stop. Oxycodone Hcl 20 Mg Tablet 20 Mg PO PRN QID PRN 06/13/16 Reported Bisacodyl 5 Mg Tablet.dr 5 Mg PO DAILY06 06/13/16 Reported Clonidine Hcl 0.3 Mg Tablet 0.3 Mg PO TID 12/28/13 Reported Comments cxr 11/17 resolved infiltrates Impression . 1. Iiwxa-sk-gqdzfgr hypercapnic and hypoxic respiratory failure secondary possible gram pos and gram negative pneumonia and septic shock. resolved 2. 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 3. Fzfxa-fa-vrgwcso renal failure. 4. Severe protein-calorie malnutrition. 5. Bilateral infiltrates consistent with pneumonia. resolve by CXR 6. Recent echo with normal ejection fraction. 7. Septic shock off pressors Plan . TRILOGY FOR HOME SET UP HERE IN HOSPITAL FOR NOW REPEAT SWALLOW ANTIBX D/C PT/OT D/C STEROIDS SPOKE WITH DAUGHTER LIGIA MOORE MD Nov 23, 2016 17:40
[2016-11-23 19:00] VITALS: BP 119/84
[2016-11-23 23:00] VITALS: BP 133/80
[2016-11-24] VITALS (7 sets, daily range): BP systolic 99–139; BP diastolic 60–92
[2016-11-24] MEDS: AA 3%/ELECTROLYTE-TPN SOLN/GLY 1,000 ML IV SCH (00:07)
[2016-11-24] MEDS: IPRATRPIUM/ALBUTEROL 0.5/2.5MG 3 ML NEBU. NEB SCH ×3 (07:21→19:48)
[2016-11-24] MEDS: FAMOTIDINE 20 MG/2 ML VIAL IVP SCH ×2 (08:45→21:27)
--- NOTE | 2016-11-24 12:21 | PDOC ---
GI PROGRESS NOTES Date Date/Time DATE: 11/24/16 TIME: 12:17 Subjective Subjective Failed swallow evaluation malnutrition severe COPD Objective Vitals Vital Signs Date Time Temp Pulse Resp B/P Pulse Ox O2 Delivery O2 Flow Rate FiO2 11/24/16 11:59 83 BiPAP/CPAP 11/24/16 09:00 Nasal Cannula 4.0 11/24/16 07:21 95 BiPAP/CPAP 11/24/16 07:00 97.2 107 24 124/79 97 BiPAP/CPAP 97.2 11/24/16 04:54 99 BiPAP/CPAP 11/24/16 03:59 97.9 62 20 139/77 97 Room Air 97.9 11/24/16 03:25 99 BiPAP/CPAP 11/24/16 03:02 97.6 114 18 137/92 97 BiPAP/CPAP 97.6 11/24/16 01:22 93 BiPAP/CPAP 11/24/16 00:03 98 BiPAP/CPAP 11/23/16 23:34 77 BiPAP/CPAP 6.0 11/23/16 23:00 97.3 121 26 133/80 98 BiPAP/CPAP 97.3 11/23/16 20:00 Nasal Cannula 4.0 11/23/16 19:46 99 Nasal Cannula 4.0 11/23/16 19:00 97.4 105 20 119/84 97.4 11/23/16 15:16 Nasal Cannula 4.0 11/23/16 15:00 98.5 98 20 122/74 92 Nasal Cannula 4.0 98.5 Labs Labs Laboratory Tests Test 11/23/16 12:28 11/23/16 16:43 11/23/16 20:58 11/23/16 22:12 Glucose (Fingerstick) 123mg/dL (70-99) 86mg/dL (70-99) 68mg/dL (70-99) 110mg/dL (70-99) Test 11/24/16 03:20 11/24/16 07:50 11/24/16 12:03 Glucose (Fingerstick) 86mg/dL (70-99) 93mg/dL (70-99) 85mg/dL (70-99) Physical Exam Physical Exam on mask rhonchi abd- thin, soft non tender Assessment Assessment FAiled swallow eval. disucssed issues again with family in room- substantial pre-operative risk to place PEG- respiratory compromise at the top of the list - may require intubation and vent support to properly sedate him for EGD and PEG Problems: Plan Plan Repeat swallow evaluation and speech assessment before further consideration of PEG (with its increased risk profile for this patient) PPN, even consider TPN- but will defer to PCP and family ELANA ESCOBEDO MD Nov 24, 2016 12:21
--- NOTE | 2016-11-24 12:47 | PDOC ---
Provider Note Provider Note vss, afeb , no change in status- after disc w/ dpoa, she wants him to be full code and have peg placed if needed which is almost certain swallowing will not improve- rate 100 irreg cons w/ AF, so will resume lovenox re cva risk until surg decision is made, cont ppn also- she had no further questions BRIAN KIM MD Nov 24, 2016 12:47
--- NOTE | 2016-11-24 12:56 | PDOC ---
Provider Note Provider Note has had episodes of AF in past , also last admit, is intermittent- echo 11/08 showed good ef, no MS, high PA pressure- check tsh, may need dilt again , chads2 score 1-2 so lovenox appropriate as he is full code again- poor prog remains, dpoa understands hospice unlikely if he remains full code BRIAN KIM MD Nov 24, 2016 12:56
[2016-11-24] MEDS: ENOXAPARIN ** NOTE DOSE ** SYRINGE SQ SCH ×2 (13:00→21:27)
[2016-11-24] MEDS: ANTI-COAG MONITOR BY PHARMACY. MC PRN ×2 (13:59→14:02)
--- NOTE | 2016-11-24 16:22 | EKG ---
[facility] [address] [place] [address] Test Date: 2016-11-24 Test Time: 16:14:56 Pat Name: YAYA BARILLAS Department: Room: 574 1 Gender: M Second Facing Baster: : 1945 Requested By: BRIAN KIM Order Number: [id number] Reading MD: Yuliya Vieira Measurements Intervals [place] Rate: 113 P: 90 [place]: 120 QRS: 65 QRSD: 86 T: 86 QT: 326 QTc: 447 Interpretive Statements SINUS TACHYCARDIA LOW LIMB LEAD VOLTAGE QRS(T) CONTOUR ABNORMALITY CONSIDER ANTEROSEPTAL MYOCARDIAL DAMAGE POSSIBLY ABNORMAL ECG RI6.01 Compared to ECG 11/04/2016 00:40:20 Atrial fibrillation no longer present Electronically Signed On 11-27-2016 0:03:18 RECYCLING MANAGER by Yuliya Vieira
[2016-11-24] MEDS: DEXTROSE 50% 25 GM / 50ML DISP.SYRIN. IV PRN ×2 (17:47→21:28)
--- NOTE | 2016-11-24 18:28 | PDOC ---
PULMONARY PROGRESS NOTES Subjective PT DOES NOT LIKE THE TRILOGY AT TIMES Vitals Vital Signs Date Time Temp Pulse Resp B/P Pulse Ox O2 Delivery O2 Flow Rate FiO2 11/24/16 13:12 85 BiPAP/CPAP 11/24/16 09:00 4.0 11/24/16 07:00 97.2 107 24 124/79 97.2 General: Alert Lungs: Other (decrease bs) Cardiovascular: S1, S2 Abdomen: Soft, Non-tender Neuro Exam: Alert Extremities: No Edema Skin: Warm, Dry Labs Laboratory Tests Test 11/22/16 22:27 11/23/16 07:47 11/23/16 11:44 11/23/16 12:28 Glucose (Fingerstick) 79mg/dL (70-99) 78mg/dL (70-99) 63mg/dL (70-99) 123mg/dL (70-99) Test 11/23/16 16:43 11/23/16 20:58 11/23/16 22:12 11/24/16 03:20 Glucose (Fingerstick) 86mg/dL (70-99) 68mg/dL (70-99) 110mg/dL (70-99) 86mg/dL (70-99) Test 11/24/16 07:50 11/24/16 12:03 11/24/16 13:15 11/24/16 17:41 Glucose (Fingerstick) 93mg/dL (70-99) 85mg/dL (70-99) 62mg/dL (70-99) Thyroid Stimulating Hormone (TSH) 1.490uIU/mL (0.358-3.74) Laboratory Tests Test 11/23/16 20:58 11/23/16 22:12 11/24/16 03:20 11/24/16 07:50 Glucose (Fingerstick) 68mg/dL (70-99) 110mg/dL (70-99) 86mg/dL (70-99) 93mg/dL (70-99) Test 11/24/16 12:03 11/24/16 13:15 11/24/16 17:41 Glucose (Fingerstick) 85mg/dL (70-99) 62mg/dL (70-99) Thyroid Stimulating Hormone (TSH) 1.490uIU/mL (0.358-3.74) Medications Active Scripts Medications Dose Route/Sig Days Date Category Dose Instructions Morphine Sulfate 10 Mg/0.5 Ml Disp.syrin 5 Mg PO PRN Q3HRS PRN 11/11/16 Reported Duoneb 0.5-3(2.5) Mg/3 Ml (Albuterol/Ipratropium) 3 Ml Ampul.neb 3 Ml NEB PRN Q2HR PRN 11/11/16 Reported Prilosec (Omeprazole Magnesium) 10 Mg Suspdr.pkt 20 Mg PO DAILY 11/11/16 Reported Meloxicam 15 Mg Tablet 1 Tab PO DAILY 11/11/16 Reported Norvasc (Amlodipine Besylate) 5 Mg Tablet 1 Tab PO DAILY 11/11/16 Reported Miralax (Polyethylene Glycol 3350) 17 Gm Powd.pack 1 Packet PO DAILY PRN 11/11/16 Reported Symbicort 160-4.5 Mcg Inhaler (Budesonide/Formoterol Fumarate) 10.2 Gm Hfa.aer.ad 2 Puff IH BID 11/11/16 Reported Cardizem Tablet (Diltiazem Hcl) 30 Mg Tablet 300 Mg PO DAILY 11/11/16 Reported Spironolactone 25 Mg Tablet 1 Tab PO DAILY 11/11/16 Reported Prednisone 10 Mg Tablet 10 Mg PO UD 11/11/16 Reported Take 3 tablets by mouth twice a day for 3 days, then take 2 tablets by mouth twice a day for 3 days, then take 1 tablet by mouth twice a day for 3 days, then take 1 tablet by mouth daily x 3 days, then stop. Oxycodone Hcl 20 Mg Tablet 20 Mg PO PRN QID PRN 06/13/16 Reported Bisacodyl 5 Mg Tablet.dr 5 Mg PO DAILY06 06/13/16 Reported Clonidine Hcl 0.3 Mg Tablet 0.3 Mg PO TID 12/28/13 Reported Comments cxr 11/17 resolved infiltrates Impression . 1. Zujkg-yt-jmidnjb hypercapnic and hypoxic respiratory failure secondary possible gram pos and gram negative pneumonia and septic shock. resolved 2. 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 3. Ikucx-th-kwjgrpv renal failure. 4. Severe protein-calorie malnutrition. 5. Bilateral infiltrates consistent with pneumonia. resolve by CXR 6. Recent echo with normal ejection fraction. 7. Septic shock off pressors Plan . TRILOGY FOR HOME SET UP HERE IN HOSPITAL FOR NOW REPEAT SWALLOW NEXT WEEK IF UNABLE TO EAT I RECOMMEND A DOBBHOFF ANTIBX D/C PT/OT D/C STEROIDS SPOKE WITH DAUGHTER, PT NOW A FULL CODE PROGNOSIS IS POOR PT NOT EXPECTED TO SURVIVE NEXT ACUTE RESP FAILURE AND OR SEPSIS LIGIA MOORE MD Nov 24, 2016 18:28
[2016-11-25 03:00] VITALS: BP 130/81
[2016-11-25 07:00] VITALS: BP 129/88
[2016-11-25] MEDS: IPRATRPIUM/ALBUTEROL 0.5/2.5MG 3 ML NEBU. NEB SCH ×3 (07:41→20:03)
[2016-11-25] MEDS: AA 3%/ELECTROLYTE-TPN SOLN/GLY 1,000 ML IV SCH ×2 (08:25→08:29)
[2016-11-25] MEDS: FAMOTIDINE 20 MG/2 ML VIAL IVP SCH ×2 (08:29→20:36)
[2016-11-25] MEDS: ENOXAPARIN ** NOTE DOSE ** SYRINGE SQ SCH (08:29)
[2016-11-25 11:00] VITALS: BP 116/75
--- NOTE | 2016-11-25 14:24 | PDOC ---
Provider Note Provider Note pt wants to eat and refuces a dobbhoff- he is aware of date, time, location now , and says he does not want to be re-intubated, in conflict w/ orders from family- repeat swallow eval pending but not likely to improve- pulse reg now and ekg showed nsr, so will lower lovenox to proph dose- vivi ok- will need to discuss options w/ him and family togrther but pall cre input has been declined BRIAN Rondon MD Nov 25, 2016 14:24
[2016-11-25 15:00] VITALS: BP 120/82
--- NOTE | 2016-11-25 16:24 | PDOC ---
PULMONARY PROGRESS NOTES Subjective PT IS HUNGRY TOLERATED THE BIPAP LAST ANJALI Vitals Vital Signs Date Time Temp Pulse Resp B/P Pulse Ox O2 Delivery O2 Flow Rate FiO2 11/25/16 15:41 Nasal Cannula 4.0 11/25/16 15:00 98.6 105 18 120/82 100 98.6 General: Alert Lungs: Other (decrease bs) Cardiovascular: S1, S2 Abdomen: Soft, Non-tender Neuro Exam: Alert Extremities: No Edema Skin: Warm, Dry Labs Laboratory Tests Test 11/23/16 16:43 11/23/16 20:58 11/23/16 22:12 11/24/16 03:20 Glucose (Fingerstick) 86mg/dL (70-99) 68mg/dL (70-99) 110mg/dL (70-99) 86mg/dL (70-99) Test 11/24/16 07:50 11/24/16 12:03 11/24/16 13:15 11/24/16 17:41 Glucose (Fingerstick) 93mg/dL (70-99) 85mg/dL (70-99) 62mg/dL (70-99) Thyroid Stimulating Hormone (TSH) 1.490uIU/mL (0.358-3.74) Test 11/24/16 18:42 11/24/16 21:24 11/24/16 23:00 11/24/16 23:03 Glucose (Fingerstick) 85mg/dL (70-99) 62mg/dL (70-99) 93mg/dL (70-99) 81mg/dL (70-99) Test 11/25/16 07:26 11/25/16 11:04 Glucose (Fingerstick) 70mg/dL (70-99) 71mg/dL (70-99) Laboratory Tests Test 11/24/16 17:41 11/24/16 18:42 11/24/16 21:24 11/24/16 23:00 Glucose (Fingerstick) 62mg/dL (70-99) 85mg/dL (70-99) 62mg/dL (70-99) 93mg/dL (70-99) Test 11/24/16 23:03 11/25/16 07:26 11/25/16 11:04 Glucose (Fingerstick) 81mg/dL (70-99) 70mg/dL (70-99) 71mg/dL (70-99) Medications Active Scripts Medications Dose Route/Sig Days Date Category Dose Instructions Morphine Sulfate 10 Mg/0.5 Ml Disp.syrin 5 Mg PO PRN Q3HRS PRN 11/11/16 Reported Duoneb 0.5-3(2.5) Mg/3 Ml (Albuterol/Ipratropium) 3 Ml Ampul.neb 3 Ml NEB PRN Q2HR PRN 11/11/16 Reported Prilosec (Omeprazole Magnesium) 10 Mg Suspdr.pkt 20 Mg PO DAILY 11/11/16 Reported Meloxicam 15 Mg Tablet 1 Tab PO DAILY 11/11/16 Reported Norvasc (Amlodipine Besylate) 5 Mg Tablet 1 Tab PO DAILY 11/11/16 Reported Miralax (Polyethylene Glycol 3350) 17 Gm Powd.pack 1 Packet PO DAILY PRN 11/11/16 Reported Symbicort 160-4.5 Mcg Inhaler (Budesonide/Formoterol Fumarate) 10.2 Gm Hfa.aer.ad 2 Puff IH BID 11/11/16 Reported Cardizem Tablet (Diltiazem Hcl) 30 Mg Tablet 300 Mg PO DAILY 11/11/16 Reported Spironolactone 25 Mg Tablet 1 Tab PO DAILY 11/11/16 Reported Prednisone 10 Mg Tablet 10 Mg PO UD 11/11/16 Reported Take 3 tablets by mouth twice a day for 3 days, then take 2 tablets by mouth twice a day for 3 days, then take 1 tablet by mouth twice a day for 3 days, then take 1 tablet by mouth daily x 3 days, then stop. Oxycodone Hcl 20 Mg Tablet 20 Mg PO PRN QID PRN 06/13/16 Reported Bisacodyl 5 Mg Tablet.dr 5 Mg PO DAILY06 06/13/16 Reported Clonidine Hcl 0.3 Mg Tablet 0.3 Mg PO TID 12/28/13 Reported Comments cxr 11/17 resolved infiltrates Impression . 1. Lkpmy-fs-zkaoubs hypercapnic and hypoxic respiratory failure secondary possible gram pos and gram negative pneumonia and septic shock. resolved 2. 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 3. Eaebc-kl-nengldf renal failure. 4. Severe protein-calorie malnutrition. 5. Bilateral infiltrates consistent with pneumonia. resolve by CXR 6. Recent echo with normal ejection fraction. 7. Septic shock off pressors Plan . SEE ORDERS FOR TUBE FEEDING WILL INSERT CARLOS TRILOGY FOR HOME SET UP HERE IN HOSPITAL FOR NOW REPEAT SWALLOW NEXT WEEK ANTIBX D/C PT/OT D/C STEROIDS PROGNOSIS IS POOR PT NOT EXPECTED TO SURVIVE NEXT ACUTE RESP FAILURE AND OR SEPSIS LIGIA MOORE MD Nov 25, 2016 16:24
--- NOTE | 2016-11-25 17:32 | RAD ---
PROCEDURE KUB. HISTORY Dobhoff placement. TECHNIQUE KUB is submitted for review. COMPARISON October 31, 2016. FINDINGS Exam was centered at the diaphragm. Dobhoff feeding tube is in the esophagus, the tip is coiled. There is a left pleural effusion and infiltrate. Bowel gas pattern in the upper abdomen appears nonobstructive. IMPRESSION Dobhoff feeding tube is within the esophagus, repositioning and repeat film would be recommended. Electronically signed by: Francesco Cisneros MD (Nov 25, 2016 17:30:52)
--- NOTE | 2016-11-25 18:52 | RAD ---
PROCEDURE KUB HISTORY Dobhoff tube placement. COMPARISON Same day performed at 5:06 p.m.. IMPRESSION Dobhoff tube tip is now located within the fundus of the stomach. Electronically signed by: John Hodges MD (Nov 25, 2016 18:52:05)
[2016-11-25 19:00] VITALS: BP 126/68
[2016-11-25 23:00] VITALS: BP 130/86
--- NOTE | 2016-11-26 00:33 | RAD ---
PROCEDURE Abdomen, single view. HISTORY Dobhooff placement. FINDINGS A frontal view of the abdomen is obtained. There is an enteric feeding catheter with the tip overlying the proximal stomach and the side-port at the expected location of the gastroesophageal junction. This has been repositioned compared to the prior study. There is a large amount of gas and moderate stool within the colon. There is no evidence of bowel obstruction. There is left lola thorax volume loss with a small pleural effusion or plural thickening and diffuse increased interstitial opacity likely due to infiltrate. There is hyperinflation of the right lung with inferior displacement of the right hemidiaphragm. There is emphysema. IMPRESSION 1. Enteric feeding catheter within the proximal stomach. 2. Large amount a gas and moderate stool within the colon. There is no evidence of bowel obstruction. 3. Left lola thorax volume loss with plural effusion or plural thickening and diffuse interstitial infiltrate. 4. Right lung emphysema with hyperexpansion. Electronically signed by: Bethany Bueno (Nov 26, 2016 00:32:01)
[2016-11-26 03:00] VITALS: BP 138/84
[2016-11-26] MEDS: AA 3%/ELECTROLYTE-TPN SOLN/GLY 1,000 ML IV SCH ×2 (04:30→19:12)
[2016-11-26 07:00] VITALS: BP 140/92
[2016-11-26] MEDS: IPRATRPIUM/ALBUTEROL 0.5/2.5MG 3 ML NEBU. NEB SCH ×4 (08:13→19:47)
[2016-11-26 08:22] LABS: BASO % 1 % (0-3); EOS % 2 % (0-3); HEMOGLOBIN 10.6 g/dL (13.0-17.5); LYMPH # 0.7 x10^3/uL (1.0-4.8); LYMPH % 19 % (24-48); MEAN CORPUSCULAR HEMOGLOBIN 29 pg (25-35); MEAN CORPUSCULAR HGB CONC 32 g/dL (31-37); MEAN CORPUSCULAR VOLUME 92 fL (79-100); MONO % 11 % (0-9); NEUT % 67 % (31-73); PLATELET COUNT 131 x10^3/uL (140-400); RED CELL DISTRIBUTION WIDTH 12.9 % (11.5-14.5); WHITE BLOOD COUNT 3.8 x10^3/uL (4.0-11.0)
--- NOTE | 2016-11-26 08:31 | PDOC ---
Provider Note Provider Note vss, dobbhoff in again- repeat swallow eval pending- sleeping now- wbc lower 3800, will repeat 11/27 BRIAN KIM MD Nov 26, 2016 08:31
[2016-11-26 08:39] LABS: CALCIUM 8.2 mg/dL (8.5-10.1); CREATININE 0.4 mg/dL (0.7-1.3); GFR 255.1; POTASSIUM 3.8 mmol/L (3.5-5.1)
--- NOTE | 2016-11-26 08:41 | PDOC ---
PULMONARY PROGRESS NOTES Subjective PT IS HUNGRY TOLERATED THE BIPAP LAST ANJALI Vitals Vital Signs Date Time Temp Pulse Resp B/P Pulse Ox O2 Delivery O2 Flow Rate FiO2 11/26/16 08:18 96 Nasal Cannula 4.0 11/26/16 03:00 98.1 105 19 138/84 98.1 General: Alert Lungs: Other (decrease bs) Cardiovascular: S1, S2 Abdomen: Soft, Non-tender Neuro Exam: Alert Extremities: No Edema Skin: Warm, Dry Labs Laboratory Tests Test 11/24/16 12:03 11/24/16 13:15 11/24/16 17:41 11/24/16 18:42 Glucose (Fingerstick) 85mg/dL (70-99) 62mg/dL (70-99) 85mg/dL (70-99) Thyroid Stimulating Hormone (TSH) 1.490uIU/mL (0.358-3.74) Test 11/24/16 21:24 11/24/16 23:00 11/24/16 23:03 11/25/16 07:26 Glucose (Fingerstick) 62mg/dL (70-99) 93mg/dL (70-99) 81mg/dL (70-99) 70mg/dL (70-99) Test 11/25/16 11:04 11/25/16 16:36 11/26/16 08:17 Glucose (Fingerstick) 71mg/dL (70-99) 73mg/dL (70-99) White Blood Count 3.8x10^3/uL (4.0-11.0) Red Blood Count 3.60x10^6/uL (4.30-5.70) Hemoglobin 10.6g/dL (13.0-17.5) Hematocrit 33.0% (39.0-53.0) Mean Corpuscular Volume 92fL (79-100) Mean Corpuscular Hemoglobin 29pg (25-35) Mean Corpuscular Hemoglobin Concent 32g/dL (31-37) Red Cell Distribution Width 12.9% (11.5-14.5) Platelet Count 131x10^3/uL (140-400) Neutrophils (%) (Auto) 67% (31-73) Lymphocytes (%) (Auto) 19% (24-48) Monocytes (%) (Auto) 11% (0-9) Eosinophils (%) (Auto) 2% (0-3) Basophils (%) (Auto) 1% (0-3) Neutrophils # (Auto) 2.6x10^3uL (1.8-7.7) Lymphocytes # (Auto) 0.7x10^3/uL (1.0-4.8) Monocytes # (Auto) 0.4x10^3/uL (0.0-1.1) Eosinophils # (Auto) 0.1x10^3/uL (0.0-0.7) Basophils # (Auto) 0.0x10^3/uL (0.0-0.2) Laboratory Tests Test 11/25/16 11:04 11/25/16 16:36 11/26/16 08:17 Glucose (Fingerstick) 71mg/dL (70-99) 73mg/dL (70-99) White Blood Count 3.8x10^3/uL (4.0-11.0) Red Blood Count 3.60x10^6/uL (4.30-5.70) Hemoglobin 10.6g/dL (13.0-17.5) Hematocrit 33.0% (39.0-53.0) Mean Corpuscular Volume 92fL (79-100) Mean Corpuscular Hemoglobin 29pg (25-35) Mean Corpuscular Hemoglobin Concent 32g/dL (31-37) Red Cell Distribution Width 12.9% (11.5-14.5) Platelet Count 131x10^3/uL (140-400) Neutrophils (%) (Auto) 67% (31-73) Lymphocytes (%) (Auto) 19% (24-48) Monocytes (%) (Auto) 11% (0-9) Eosinophils (%) (Auto) 2% (0-3) Basophils (%) (Auto) 1% (0-3) Neutrophils # (Auto) 2.6x10^3uL (1.8-7.7) Lymphocytes # (Auto) 0.7x10^3/uL (1.0-4.8) Monocytes # (Auto) 0.4x10^3/uL (0.0-1.1) Eosinophils # (Auto) 0.1x10^3/uL (0.0-0.7) Basophils # (Auto) 0.0x10^3/uL (0.0-0.2) Sodium Level 141mmol/L (136-145) Potassium Level 3.8mmol/L (3.5-5.1) Chloride Level 99mmol/L (98-107) Carbon Dioxide Level 41mmol/L (21-32) Anion Gap 1 (6-14) Blood Urea Nitrogen 7mg/dL (8-26) Creatinine 0.4mg/dL (0.7-1.3) Estimated GFR (Cockcroft-Gault) 255.1 Glucose Level 94mg/dL (70-99) Calcium Level 8.2mg/dL (8.5-10.1) Medications Active Scripts Medications Dose Route/Sig Days Date Category Dose Instructions Morphine Sulfate 10 Mg/0.5 Ml Disp.syrin 5 Mg PO PRN Q3HRS PRN 11/11/16 Reported Duoneb 0.5-3(2.5) Mg/3 Ml (Albuterol/Ipratropium) 3 Ml Ampul.neb 3 Ml NEB PRN Q2HR PRN 11/11/16 Reported Prilosec (Omeprazole Magnesium) 10 Mg Suspdr.pkt 20 Mg PO DAILY 11/11/16 Reported Meloxicam 15 Mg Tablet 1 Tab PO DAILY 11/11/16 Reported Norvasc (Amlodipine Besylate) 5 Mg Tablet 1 Tab PO DAILY 11/11/16 Reported Miralax (Polyethylene Glycol 3350) 17 Gm Powd.pack 1 Packet PO DAILY PRN 11/11/16 Reported Symbicort 160-4.5 Mcg Inhaler (Budesonide/Formoterol Fumarate) 10.2 Gm Hfa.aer.ad 2 Puff IH BID 11/11/16 Reported Cardizem Tablet (Diltiazem Hcl) 30 Mg Tablet 300 Mg PO DAILY 11/11/16 Reported Spironolactone 25 Mg Tablet 1 Tab PO DAILY 11/11/16 Reported Prednisone 10 Mg Tablet 10 Mg PO UD 11/11/16 Reported Take 3 tablets by mouth twice a day for 3 days, then take 2 tablets by mouth twice a day for 3 days, then take 1 tablet by mouth twice a day for 3 days, then take 1 tablet by mouth daily x 3 days, then stop. Oxycodone Hcl 20 Mg Tablet 20 Mg PO PRN QID PRN 06/13/16 Reported Bisacodyl 5 Mg Tablet.dr 5 Mg PO DAILY06 06/13/16 Reported Clonidine Hcl 0.3 Mg Tablet 0.3 Mg PO TID 12/28/13 Reported Comments cxr 11/17 resolved infiltrates Impression . 1. Ovrde-ex-xyzclpq hypercapnic and hypoxic respiratory failure secondary possible gram pos and gram negative pneumonia and septic shock. resolved 2. 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 3. Kkyka-ac-lktzsbi renal failure. 4. Severe protein-calorie malnutrition. 5. Bilateral infiltrates consistent with pneumonia. resolve by CXR 6. Recent echo with normal ejection fraction. 7. Septic shock off pressors Plan . PT REQUIRES PEG I WOULD PROCEED WITH PEG TRILOGY FOR HOME SET UP HERE IN HOSPITAL FOR NOW ANTIBX D/C PT/OT D/C STEROIDS PROGNOSIS IS POOR PT NOT EXPECTED TO SURVIVE NEXT ACUTE RESP FAILURE AND OR SEPSIS LIGIA MOORE MD Nov 26, 2016 08:41
[2016-11-26] MEDS: FAMOTIDINE 20 MG/2 ML VIAL IVP SCH ×2 (09:42→20:51)
[2016-11-26] MEDS: ENOXAPARIN 40 MG/0.4 ML DISP.SYRIN. SQ SCH (09:43)
--- NOTE | 2016-11-26 10:04 | PDOC ---
Subjective: Subjective: No GI complaints per pt. Says breathing "good." Objective: Objective: Reviewed OYSTER FARMER note. Vital Signs: Vital Signs Date Time Temp Pulse Resp B/P Pulse Ox O2 Delivery O2 Flow Rate FiO2 11/26/16 08:18 96 Nasal Cannula 4.0 11/26/16 07:00 98.3 102 18 140/92 98.3 Labs: Laboratory Tests Test 11/25/16 11:04 11/25/16 16:36 11/26/16 08:17 Glucose (Fingerstick) 71mg/dL 73mg/dL White Blood Count 3.8x10^3/uL Red Blood Count 3.60x10^6/uL Hemoglobin 10.6g/dL Hematocrit 33.0% Mean Corpuscular Volume 92fL Mean Corpuscular Hemoglobin 29pg Mean Corpuscular Hemoglobin Concent 32g/dL Red Cell Distribution Width 12.9% Platelet Count 131x10^3/uL Neutrophils (%) (Auto) 67% Lymphocytes (%) (Auto) 19% Monocytes (%) (Auto) 11% Eosinophils (%) (Auto) 2% Basophils (%) (Auto) 1% Neutrophils # (Auto) 2.6x10^3uL Lymphocytes # (Auto) 0.7x10^3/uL Monocytes # (Auto) 0.4x10^3/uL Eosinophils # (Auto) 0.1x10^3/uL Basophils # (Auto) 0.0x10^3/uL Sodium Level 141mmol/L Potassium Level 3.8mmol/L Chloride Level 99mmol/L Carbon Dioxide Level 41mmol/L Anion Gap 1 Blood Urea Nitrogen 7mg/dL Creatinine 0.4mg/dL Estimated GFR (Cockcroft-Gault) 255.1 Glucose Level 94mg/dL Calcium Level 8.2mg/dL Imaging: Swallow Eval 11/23/16 IMPRESSIONS: Laryngeal dysfunction as evidenced by breathy phonation,weak cough and wet phonation on own secretions as well as impaired hyolaryngeal excursion at swallow of single ice chip. Pt's swallow is severely impaired to incomplete per palp. Wet breathing and phonation noted p.swallow of single ice chip and 1/ 4 tsp trial of honey thick liquid. Current s/s of poor airway closure and protection are c/w pt's recent hx of 1 wk.intubation and prior hx of end stage COPD. Minimal improvement over the past 4 days. Prognosis for improvement is poor given severity of dysphagia, co-morbidities and lack of improvement over the last several days. Likely will require long-term non-oral if c/w goals of care. Note pt was previously on hospice and may not wish to pursue same. RECOMMENDATIONS: NPO meds and nutrition. Prognosis to return to safe PO intake in the near future is poor at this time. ST Will f/u to advance to po if indicated. PE: GEN: NAD, thin LUNGS: decreased bilaterally anteriorly, poor air movement HEART: S1S2 ABD: BS+ (quiet), NT, Dobhoff in place w/ feeds NEURO/PSYCH: A & O 3 A/P: Resp failure w/ COPD, pneumonia (this admission) -failed swallow studies after extubation Dysphagia -now has tube feeds w/ Dobhoff -- Have discussed risks of EGD w/ PEG placement w/ pt, family previously - considering pulm status, could require re-intubation which pt does not want. PA MACDONALD Nov 26, 2016 10:04
[2016-11-26 10:42] VITALS: BP 123/78
--- NOTE | 2016-11-26 15:18 | RAD ---
Portable abdomen, 11/26/2016: History: Check Dobbhoff tube placement Comparison is made to the study of earlier the same day. The Dobbhoff tube is now doubled back upon itself in the mid chest to the left of midline. It may lie in the bronchial tree. There is a moderate unchanged left basilar opacity compatible with pleural fluid and underlying atelectasis/infiltrate. The right lung base is clear. There is a moderate amount of bowel gas in the upper abdomen. IMPRESSION: 1. Malposition of the Dobbhoff tube which may lie in the bronchial tree. Complete removal of the tube prior to repositioning is suggested. 2. Ongoing moderate left basilar opacity compatible with pleural fluid and underlying atelectasis/infiltrate. Note: The findings were given to the patient's nurse on the floor at 3:13 PM on 11/26/2016.
[2016-11-26 15:21] VITALS: BP 118/80
--- NOTE | 2016-11-26 17:49 | RAD ---
PROCEDURE KUB. HISTORY Dobhoff placement TECHNIQUE KUB is submitted for review. It is centered at the diaphragm, lower abdomen not included. COMPARISON Earlier today. FINDINGS Dobhoff feeding tube projects below the diaphragm coiled within the stomach proximally. Mild gaseous distention of bowel is noted. Left pleural effusion is suspected. IMPRESSION Dobhoff feeding tube projects over the stomach. Electronically signed by: Francesco Cisneros MD (Nov 26, 2016 17:49:02)
[2016-11-26 19:00] VITALS: BP 147/89
[2016-11-26] MEDS: FENTANYL PF 100 MCG/2 ML VIAL. IV PRN (20:51)
[2016-11-26 22:32] VITALS: BP 114/78
[2016-11-27 06:42] LABS: BASO # 0.1 x10^3/uL (0.0-0.2); BASO % 1 % (0-3); EOS % 1 % (0-3); HEMATOCRIT 32.2 % (39.0-53.0); HEMOGLOBIN 10.3 g/dL (13.0-17.5); LYMPH # 1.9 x10^3/uL (1.0-4.8); LYMPH % 24 % (24-48); MEAN CORPUSCULAR HEMOGLOBIN 30 pg (25-35); MEAN CORPUSCULAR HGB CONC 32 g/dL (31-37); MEAN CORPUSCULAR VOLUME 92 fL (79-100); MONO % 7 % (0-9); NEUT % 68 % (31-73); PLATELET COUNT 131 x10^3/uL (140-400); RED BLOOD COUNT 3.49 x10^6/uL (4.30-5.70); RED CELL DISTRIBUTION WIDTH 13.9 % (11.5-14.5); WHITE BLOOD COUNT 7.9 x10^3/uL (4.0-11.0)
[2016-11-27 07:00] VITALS: BP 149/74
[2016-11-27] MEDS: IPRATRPIUM/ALBUTEROL 0.5/2.5MG 3 ML NEBU. NEB SCH ×4 (07:35→21:01)
--- NOTE | 2016-11-27 08:12 | PDOC ---
Provider Note Provider Note pt does NOT want another dobbhoff, wants to eat , but is unable to swallow- he states today he does want to be on vent if needed so full code still in place- dilemna is gi concern re risks of peg vs need for enteral nutrition, dr fuentes returns 11/28 who knows pt and family better- cont ppn for now BRIAN KIM MD Nov 27, 2016 08:12
--- NOTE | 2016-11-27 09:17 | PDOC ---
PULMONARY PROGRESS NOTES Subjective PAT WISHES TO EAT WANT TO TAKE RISK OF ASPIRATION Vitals Vital Signs Date Time Temp Pulse Resp B/P Pulse Ox O2 Delivery O2 Flow Rate FiO2 11/27/16 07:35 Nasal Cannula 4.0 11/27/16 07:00 97.2 89 18 149/74 94 97.2 General: Alert Lungs: Other (decrease bs) Cardiovascular: S1, S2 Abdomen: Soft, Non-tender Neuro Exam: Alert Extremities: No Edema Skin: Warm, Dry Labs Laboratory Tests Test 11/25/16 11:04 11/25/16 16:36 11/26/16 08:17 11/27/16 06:35 Glucose (Fingerstick) 71mg/dL (70-99) 73mg/dL (70-99) White Blood Count 3.8x10^3/uL (4.0-11.0) 7.9x10^3/uL (4.0-11.0) Red Blood Count 3.60x10^6/uL (4.30-5.70) 3.49x10^6/uL (4.30-5.70) Hemoglobin 10.6g/dL (13.0-17.5) 10.3g/dL (13.0-17.5) Hematocrit 33.0% (39.0-53.0) 32.2% (39.0-53.0) Mean Corpuscular Volume 92fL (79-100) 92fL (79-100) Mean Corpuscular Hemoglobin 29pg (25-35) 30pg (25-35) Mean Corpuscular Hemoglobin Concent 32g/dL (31-37) 32g/dL (31-37) Red Cell Distribution Width 12.9% (11.5-14.5) 13.9% (11.5-14.5) Platelet Count 131x10^3/uL (140-400) 131x10^3/uL (140-400) Neutrophils (%) (Auto) 67% (31-73) 68% (31-73) Lymphocytes (%) (Auto) 19% (24-48) 24% (24-48) Monocytes (%) (Auto) 11% (0-9) 7% (0-9) Eosinophils (%) (Auto) 2% (0-3) 1% (0-3) Basophils (%) (Auto) 1% (0-3) 1% (0-3) Neutrophils # (Auto) 2.6x10^3uL (1.8-7.7) 5.4x10^3uL (1.8-7.7) Lymphocytes # (Auto) 0.7x10^3/uL (1.0-4.8) 1.9x10^3/uL (1.0-4.8) Monocytes # (Auto) 0.4x10^3/uL (0.0-1.1) 0.5x10^3/uL (0.0-1.1) Eosinophils # (Auto) 0.1x10^3/uL (0.0-0.7) 0.1x10^3/uL (0.0-0.7) Basophils # (Auto) 0.0x10^3/uL (0.0-0.2) 0.1x10^3/uL (0.0-0.2) Sodium Level 141mmol/L (136-145) Potassium Level 3.8mmol/L (3.5-5.1) Chloride Level 99mmol/L (98-107) Carbon Dioxide Level 41mmol/L (21-32) Anion Gap 1 (6-14) Blood Urea Nitrogen 7mg/dL (8-26) Creatinine 0.4mg/dL (0.7-1.3) Estimated GFR (Cockcroft-Gault) 255.1 Glucose Level 94mg/dL (70-99) Calcium Level 8.2mg/dL (8.5-10.1) Laboratory Tests Test 11/27/16 06:35 White Blood Count 7.9x10^3/uL (4.0-11.0) Red Blood Count 3.49x10^6/uL (4.30-5.70) Hemoglobin 10.3g/dL (13.0-17.5) Hematocrit 32.2% (39.0-53.0) Mean Corpuscular Volume 92fL (79-100) Mean Corpuscular Hemoglobin 30pg (25-35) Mean Corpuscular Hemoglobin Concent 32g/dL (31-37) Red Cell Distribution Width 13.9% (11.5-14.5) Platelet Count 131x10^3/uL (140-400) Neutrophils (%) (Auto) 68% (31-73) Lymphocytes (%) (Auto) 24% (24-48) Monocytes (%) (Auto) 7% (0-9) Eosinophils (%) (Auto) 1% (0-3) Basophils (%) (Auto) 1% (0-3) Neutrophils # (Auto) 5.4x10^3uL (1.8-7.7) Lymphocytes # (Auto) 1.9x10^3/uL (1.0-4.8) Monocytes # (Auto) 0.5x10^3/uL (0.0-1.1) Eosinophils # (Auto) 0.1x10^3/uL (0.0-0.7) Basophils # (Auto) 0.1x10^3/uL (0.0-0.2) Medications Active Scripts Medications Dose Route/Sig Days Date Category Dose Instructions Morphine Sulfate 10 Mg/0.5 Ml Disp.syrin 5 Mg PO PRN Q3HRS PRN 11/11/16 Reported Duoneb 0.5-3(2.5) Mg/3 Ml (Albuterol/Ipratropium) 3 Ml Ampul.neb 3 Ml NEB PRN Q2HR PRN 11/11/16 Reported Prilosec (Omeprazole Magnesium) 10 Mg Suspdr.pkt 20 Mg PO DAILY 11/11/16 Reported Meloxicam 15 Mg Tablet 1 Tab PO DAILY 11/11/16 Reported Norvasc (Amlodipine Besylate) 5 Mg Tablet 1 Tab PO DAILY 11/11/16 Reported Miralax (Polyethylene Glycol 3350) 17 Gm Powd.pack 1 Packet PO DAILY PRN 11/11/16 Reported Symbicort 160-4.5 Mcg Inhaler (Budesonide/Formoterol Fumarate) 10.2 Gm Hfa.aer.ad 2 Puff IH BID 11/11/16 Reported Cardizem Tablet (Diltiazem Hcl) 30 Mg Tablet 300 Mg PO DAILY 11/11/16 Reported Spironolactone 25 Mg Tablet 1 Tab PO DAILY 11/11/16 Reported Prednisone 10 Mg Tablet 10 Mg PO UD 11/11/16 Reported Take 3 tablets by mouth twice a day for 3 days, then take 2 tablets by mouth twice a day for 3 days, then take 1 tablet by mouth twice a day for 3 days, then take 1 tablet by mouth daily x 3 days, then stop. Oxycodone Hcl 20 Mg Tablet 20 Mg PO PRN QID PRN 06/13/16 Reported Bisacodyl 5 Mg Tablet.dr 5 Mg PO DAILY06 06/13/16 Reported Clonidine Hcl 0.3 Mg Tablet 0.3 Mg PO TID 12/28/13 Reported Comments cxr 11/17 resolved infiltrates Impression . 1. Dpnpw-sp-jvecmfu hypercapnic and hypoxic respiratory failure secondary possible gram pos and gram negative pneumonia and septic shock. resolved 2. 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 3. Fvdam-zz-vdnptre renal failure. 4. Severe protein-calorie malnutrition. 5. Bilateral infiltrates consistent with pneumonia. resolve by CXR 6. Recent echo with normal ejection fraction. 7. Septic shock off pressors Plan . PT DOES NOT WANT PEG HE WANTS TO EAT DESPITE RISK OF ASPIRATION TRILOGY FOR HOME SET UP HERE IN HOSPITAL FOR NOW ANTIBX D/C PT/OT D/C STEROIDS PROGNOSIS IS POOR PT NOT EXPECTED TO SURVIVE NEXT ACUTE RESP FAILURE AND OR SEPSIS LIGIA MOORE MD Nov 27, 2016 09:17
[2016-11-27] MEDS: ENOXAPARIN 40 MG/0.4 ML DISP.SYRIN. SQ SCH (09:39)
[2016-11-27] MEDS: FAMOTIDINE 20 MG/2 ML VIAL IVP SCH ×2 (09:40→21:19)
[2016-11-27] MEDS: ALBUTEROL SULFATE 2.5 MG/3 ML NEBU. NEB PRN (10:05)
--- NOTE | 2016-11-27 10:20 | PDOC ---
Objective: Objective: RN present. Reviewed notes - Dobhoff out, pt does not want replaced. Vital Signs: Vital Signs Date Time Temp Pulse Resp B/P Pulse Ox O2 Delivery O2 Flow Rate FiO2 11/27/16 10:05 Nasal Cannula 4.0 11/27/16 07:00 97.2 89 18 149/74 94 97.2 Labs: Laboratory Tests Test 11/27/16 06:35 White Blood Count 7.9x10^3/uL Red Blood Count 3.49x10^6/uL Hemoglobin 10.3g/dL Hematocrit 32.2% Mean Corpuscular Volume 92fL Mean Corpuscular Hemoglobin 30pg Mean Corpuscular Hemoglobin Concent 32g/dL Red Cell Distribution Width 13.9% Platelet Count 131x10^3/uL Neutrophils (%) (Auto) 68% Lymphocytes (%) (Auto) 24% Monocytes (%) (Auto) 7% Eosinophils (%) (Auto) 1% Basophils (%) (Auto) 1% Neutrophils # (Auto) 5.4x10^3uL Lymphocytes # (Auto) 1.9x10^3/uL Monocytes # (Auto) 0.5x10^3/uL Eosinophils # (Auto) 0.1x10^3/uL Basophils # (Auto) 0.1x10^3/uL PE: GEN: NAD, thin LUNGS: on BiPAP HEART: S1S2 ABD: NABS, S/ND/NT NEURO/PSYCH: A & O 3 A/P: Resp failure w/ COPD, pneumonia (this admission), dysphagia -failed swallow studies (x3) after extubation -Dobhoff out, pt does not want replaced -pt wants to eat -pt does not want to be re-intubated -- Increased risks for PEG placement considering pulm status. Other per Dr. Shultz. Have previously d/w girlfriend and daughter. PA MACDONALD Nov 27, 2016 10:20
[2016-11-27 11:00] VITALS: BP 149/74
[2016-11-27 15:00] VITALS: BP 147/96
[2016-11-27] MEDS: AA 3%/ELECTROLYTE-TPN SOLN/GLY 1,000 ML IV SCH (15:30)
[2016-11-27 19:00] VITALS: BP 118/74
[2016-11-27 23:00] VITALS: BP 120/59
[2016-11-28 03:02] VITALS: BP 136/84
[2016-11-28] MEDS: IPRATRPIUM/ALBUTEROL 0.5/2.5MG 3 ML NEBU. NEB SCH ×4 (06:02→19:53)
[2016-11-28] MEDS: AA 3%/ELECTROLYTE-TPN SOLN/GLY 1,000 ML IV SCH ×2 (06:12→22:05)
[2016-11-28 07:55] VITALS: BP 136/84
[2016-11-28] MEDS: ALBUTEROL SULFATE 2.5 MG/3 ML NEBU. NEB PRN (08:36)
--- NOTE | 2016-11-28 09:36 | PDOC ---
SUBJECTIVE Subjective feels ok, wants to eat, aware of risk of aspiration,he tells me he does not want to be intubated again OBJECTIVE Vital Signs Vital Signs Date Time Temp Pulse Resp B/P Pulse Ox O2 Delivery O2 Flow Rate FiO2 11/28/16 08:36 Nasal Cannula 4.0 11/28/16 07:55 98.2 101 22 136/84 92 Nasal Cannula 2.0 98.2 11/28/16 06:02 Nasal Cannula 4.0 11/28/16 03:02 97.8 107 20 136/84 90 BiPAP/CPAP 97.8 11/28/16 01:00 97 BiPAP/CPAP 4.0 11/27/16 23:00 97.7 105 20 120/59 95 Nasal Cannula 97.7 11/27/16 21:00 4.0 11/27/16 20:00 Bi-pap 4.0 11/27/16 19:00 99.9 110 20 118/74 99 Nasal Cannula 99.9 11/27/16 15:45 Nasal Cannula 4.0 11/27/16 15:00 97.2 74 22 147/96 95 Nasal Cannula 5.0 97.2 11/27/16 11:15 94 Nasal Cannula 4.0 11/27/16 11:00 97.8 88 20 149/74 95 BiPAP/CPAP 5.0 97.8 11/27/16 10:05 Nasal Cannula 4.0 I & O Intake and Output 11/28/16 07:00 Intake Total 0 ml Output Total 800 ml Balance -800 ml Intake Oral 0 ml Output Urine Total 800 ml # Voids 6 # Bowel Movements 1 PHYSICAL EXAM Physical Exam lungs decrease BS heart mild tackycardia even though resting abd soft ext no edema ASSESSMENT/PLAN Assessment/Plan called his daughter Newton who is the DPOA she state he told her he is ok if need intubated again, she does not want him to eat even though it is his wish, she understand he is malnurished, also understand risk of aspiration and his wish to eat, he is high risk for PEG procedure, not sure if pt is inconsistant with his DNR wishes , we will need pt/family/ provider meeting . this is set up for Sat at 10 AM would like palliative care and pulmonary presence if possible, Newton and family is aware of his poor prognosis no matter what choice he goes with . his condition is guarded and prognosis very poor, Problems: ERICH BLACK MD Nov 28, 2016 09:36
[2016-11-28] MEDS: FAMOTIDINE 20 MG/2 ML VIAL IVP SCH ×2 (10:13→22:01)
[2016-11-28] MEDS: ENOXAPARIN 40 MG/0.4 ML DISP.SYRIN. SQ SCH (10:13)
--- NOTE | 2016-11-28 11:49 | PDOC ---
Subjective: Subjective: Breathing okay. Objective: Objective: Note on table in front of patient reads "GIVE ME SOMETHING TO EAT" Reviewed Dr. Soto's note, reviewed Dr. Pinzon's note. Vital Signs: Vital Signs Date Time Temp Pulse Resp B/P Pulse Ox O2 Delivery O2 Flow Rate FiO2 11/28/16 08:36 Nasal Cannula 4.0 11/28/16 07:55 98.2 101 22 136/84 92 98.2 PE: GEN: NAD, up to chair, talking on phone, saying he's tired LUNGS: nasal cannula ABD: soft NEURO/PSYCH: A & O 3 A/P: Resp failure w/ COPD/pneumonia, failed swallow studies s/p extubation -increased risk w/ PEG placement -Dobhoff out - pt does not want replaced, pt does not want PEG - wants to eat despite aspiration risk, pt does not want to be re-intubated -- Family meeting planned for 11/30/15. PA MACDONALD Nov 28, 2016 11:49
[2016-11-28 12:02] VITALS: BP 130/89
--- NOTE | 2016-11-28 12:55 | PDOC ---
PULMONARY PROGRESS NOTES Subjective PAT WISHES TO EAT WANT TO TAKE RISK OF ASPIRATION Vitals Vital Signs Date Time Temp Pulse Resp B/P Pulse Ox O2 Delivery O2 Flow Rate FiO2 11/28/16 12:02 98.2 111 130/89 99 Nasal Cannula 4.0 98.2 11/28/16 07:55 22 General: Alert Lungs: Other (decrease bs) Cardiovascular: S1, S2 Abdomen: Soft, Non-tender Neuro Exam: Alert Extremities: No Edema Skin: Warm, Dry Labs Laboratory Tests Test 11/27/16 06:35 White Blood Count 7.9x10^3/uL (4.0-11.0) Red Blood Count 3.49x10^6/uL (4.30-5.70) Hemoglobin 10.3g/dL (13.0-17.5) Hematocrit 32.2% (39.0-53.0) Mean Corpuscular Volume 92fL (79-100) Mean Corpuscular Hemoglobin 30pg (25-35) Mean Corpuscular Hemoglobin Concent 32g/dL (31-37) Red Cell Distribution Width 13.9% (11.5-14.5) Platelet Count 131x10^3/uL (140-400) Neutrophils (%) (Auto) 68% (31-73) Lymphocytes (%) (Auto) 24% (24-48) Monocytes (%) (Auto) 7% (0-9) Eosinophils (%) (Auto) 1% (0-3) Basophils (%) (Auto) 1% (0-3) Neutrophils # (Auto) 5.4x10^3uL (1.8-7.7) Lymphocytes # (Auto) 1.9x10^3/uL (1.0-4.8) Monocytes # (Auto) 0.5x10^3/uL (0.0-1.1) Eosinophils # (Auto) 0.1x10^3/uL (0.0-0.7) Basophils # (Auto) 0.1x10^3/uL (0.0-0.2) Medications Active Scripts Medications Dose Route/Sig Days Date Category Dose Instructions Morphine Sulfate 10 Mg/0.5 Ml Disp.syrin 5 Mg PO PRN Q3HRS PRN 11/11/16 Reported Duoneb 0.5-3(2.5) Mg/3 Ml (Albuterol/Ipratropium) 3 Ml Ampul.neb 3 Ml NEB PRN Q2HR PRN 11/11/16 Reported Prilosec (Omeprazole Magnesium) 10 Mg Suspdr.pkt 20 Mg PO DAILY 11/11/16 Reported Meloxicam 15 Mg Tablet 1 Tab PO DAILY 11/11/16 Reported Norvasc (Amlodipine Besylate) 5 Mg Tablet 1 Tab PO DAILY 11/11/16 Reported Miralax (Polyethylene Glycol 3350) 17 Gm Powd.pack 1 Packet PO DAILY PRN 11/11/16 Reported Symbicort 160-4.5 Mcg Inhaler (Budesonide/Formoterol Fumarate) 10.2 Gm Hfa.aer.ad 2 Puff IH BID 11/11/16 Reported Cardizem Tablet (Diltiazem Hcl) 30 Mg Tablet 300 Mg PO DAILY 11/11/16 Reported Spironolactone 25 Mg Tablet 1 Tab PO DAILY 11/11/16 Reported Prednisone 10 Mg Tablet 10 Mg PO UD 11/11/16 Reported Take 3 tablets by mouth twice a day for 3 days, then take 2 tablets by mouth twice a day for 3 days, then take 1 tablet by mouth twice a day for 3 days, then take 1 tablet by mouth daily x 3 days, then stop. Oxycodone Hcl 20 Mg Tablet 20 Mg PO PRN QID PRN 06/13/16 Reported Bisacodyl 5 Mg Tablet.dr 5 Mg PO DAILY06 06/13/16 Reported Clonidine Hcl 0.3 Mg Tablet 0.3 Mg PO TID 12/28/13 Reported Comments cxr 11/17 resolved infiltrates Impression . 1. Eqfdf-pb-zqctwlw hypercapnic and hypoxic respiratory failure secondary possible gram pos and gram negative pneumonia and septic shock. resolved 2. 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 3. Krhwm-zl-etujnnn renal failure. 4. Severe protein-calorie malnutrition. 5. Bilateral infiltrates consistent with pneumonia. resolve by CXR 6. Recent echo with normal ejection fraction. 7. Septic shock off pressors Plan . PT DOES NOT WANT PEG HE WANTS TO EAT DESPITE RISK OF ASPIRATION WILL SEE IF HE QUALIFIES LTAC TRILOGY FOR HOME SET UP HERE IN HOSPITAL FOR NOW ANTIBX D/C PT/OT D/C STEROIDS PROGNOSIS IS POOR PT NOT EXPECTED TO SURVIVE NEXT ACUTE RESP FAILURE AND OR SEPSIS LIGIA MOORE MD Nov 28, 2016 12:55
[2016-11-28 15:40] VITALS: BP 138/82
[2016-11-28 19:00] VITALS: BP 142/89
[2016-11-28 23:00] VITALS: BP 135/86
[2016-11-29 03:00] VITALS: BP 134/89
[2016-11-29 07:00] VITALS: BP 134/87
[2016-11-29] MEDS: IPRATRPIUM/ALBUTEROL 0.5/2.5MG 3 ML NEBU. NEB SCH ×4 (07:28→19:41)
[2016-11-29] MEDS: FAMOTIDINE 20 MG/2 ML VIAL IVP SCH ×2 (09:20→20:46)
[2016-11-29] MEDS: ENOXAPARIN 40 MG/0.4 ML DISP.SYRIN. SQ SCH (09:22)
--- NOTE | 2016-11-29 10:53 | PDOC ---
Subjective: Subjective: Wants to eat. Objective: Vital Signs: Vital Signs Date Time Temp Pulse Resp B/P Pulse Ox O2 Delivery O2 Flow Rate FiO2 11/29/16 07:29 100 Nasal Cannula 4.0 11/29/16 07:00 98.1 106 18 134/87 98.1 PE: GEN: NAD, laying in bed, talking on phone LUNGS: decreased anteriorly, nasal cannula HEART: RRR ABD: S/ND/NT NEURO/PSYCH: A & O 3 A/P: Resp failure w/ COPD/pneumonia, failed swallow studies s/p extubation -pt does not want Dobhoff, PEG, or intubation - understands risk of aspiration and wants to eat -NPO (per daughter who is DPOA), on PPN, Pepcid IV -- Family meeting planned for 11/30/15. No new GI recs. PA MACDONALD Nov 29, 2016 10:53
[2016-11-29 11:00] VITALS: BP 147/92
[2016-11-29 15:00] VITALS: BP 135/87
[2016-11-29] MEDS: AA 3%/ELECTROLYTE-TPN SOLN/GLY 1,000 ML IV SCH (17:28)
--- NOTE | 2016-11-29 17:39 | PDOC ---
PULMONARY PROGRESS NOTES Subjective PAT WISHES TO EAT WANT TO TAKE RISK OF ASPIRATION Vitals Vital Signs Date Time Temp Pulse Resp B/P Pulse Ox O2 Delivery O2 Flow Rate FiO2 11/29/16 15:00 98.4 104 18 135/87 99 Nasal Cannula 2.0 98.4 General: Alert Lungs: Other (decrease bs) Cardiovascular: S1, S2 Abdomen: Soft, Non-tender Neuro Exam: Alert Extremities: No Edema Skin: Warm, Dry Medications Active Scripts Medications Dose Route/Sig Days Date Category Dose Instructions Morphine Sulfate 10 Mg/0.5 Ml Disp.syrin 5 Mg PO PRN Q3HRS PRN 11/11/16 Reported Duoneb 0.5-3(2.5) Mg/3 Ml (Albuterol/Ipratropium) 3 Ml Ampul.neb 3 Ml NEB PRN Q2HR PRN 11/11/16 Reported Prilosec (Omeprazole Magnesium) 10 Mg Suspdr.pkt 20 Mg PO DAILY 11/11/16 Reported Meloxicam 15 Mg Tablet 1 Tab PO DAILY 11/11/16 Reported Norvasc (Amlodipine Besylate) 5 Mg Tablet 1 Tab PO DAILY 11/11/16 Reported Miralax (Polyethylene Glycol 3350) 17 Gm Powd.pack 1 Packet PO DAILY PRN 11/11/16 Reported Symbicort 160-4.5 Mcg Inhaler (Budesonide/Formoterol Fumarate) 10.2 Gm Hfa.aer.ad 2 Puff IH BID 11/11/16 Reported Cardizem Tablet (Diltiazem Hcl) 30 Mg Tablet 300 Mg PO DAILY 11/11/16 Reported Spironolactone 25 Mg Tablet 1 Tab PO DAILY 11/11/16 Reported Prednisone 10 Mg Tablet 10 Mg PO UD 11/11/16 Reported Take 3 tablets by mouth twice a day for 3 days, then take 2 tablets by mouth twice a day for 3 days, then take 1 tablet by mouth twice a day for 3 days, then take 1 tablet by mouth daily x 3 days, then stop. Oxycodone Hcl 20 Mg Tablet 20 Mg PO PRN QID PRN 06/13/16 Reported Bisacodyl 5 Mg Tablet.dr 5 Mg PO DAILY06 06/13/16 Reported Clonidine Hcl 0.3 Mg Tablet 0.3 Mg PO TID 12/28/13 Reported Comments cxr 11/17 resolved infiltrates Impression . 1. Dthyo-hl-pbejyau hypercapnic and hypoxic respiratory failure secondary possible gram pos and gram negative pneumonia and septic shock. resolved 2. 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 3. Rluvb-wk-pcwpyij renal failure. 4. Severe protein-calorie malnutrition. 5. Bilateral infiltrates consistent with pneumonia. resolve by CXR 6. Recent echo with normal ejection fraction. 7. Septic shock off pressors Plan . SPOKE WITH DR SUMNER AND FATHER NAVEED FAMILY MEETING IN AM PT DOES NOT WANT PEG HE WANTS TO EAT DESPITE RISK OF ASPIRATION TRILOGY FOR HOME SET UP HERE IN HOSPITAL FOR NOW ANTIBX D/C PT/OT D/C STEROIDS DISPOSITION PER LIGIA PRESCOTT MD Nov 29, 2016 17:39
--- NOTE | 2016-11-29 17:46 | PDOC ---
SUBJECTIVE Subjective feels ok , wants to eat but will wait till AM after family meeting OBJECTIVE Vital Signs Vital Signs Date Time Temp Pulse Resp B/P Pulse Ox O2 Delivery O2 Flow Rate FiO2 11/29/16 15:00 98.4 104 18 135/87 99 Nasal Cannula 2.0 98.4 11/29/16 14:54 Nasal Cannula 2.0 11/29/16 11:08 96 Nasal Cannula 2.0 11/29/16 11:00 97.5 102 18 147/92 98 Nasal Cannula 2.0 97.5 11/29/16 08:00 2.0 11/29/16 07:29 100 Nasal Cannula 4.0 11/29/16 07:00 98.1 106 18 134/87 99 Nasal Cannula 2.0 98.1 11/29/16 03:00 98.1 104 18 134/89 88 Nasal Cannula 4.0 98.1 11/28/16 23:00 98.1 98 16 135/86 95 Nasal Cannula 4.0 98.1 11/28/16 20:00 Bi-pap 4.0 11/28/16 19:55 Nasal Cannula 4.0 11/28/16 19:00 98.2 105 16 142/89 98 Nasal Cannula 4.0 98.2 I & O Intake and Output 11/29/16 07:00 Intake Total 1000 ml Balance 1000 ml Intake Oral 0 ml IV Total 1000 ml # Voids 8 PHYSICAL EXAM Physical Exam very cachectic lungs decrease BS abd soft ext no edema ASSESSMENT/PLAN Assessment/Plan discussed on phone with Dr. Hines and Father Alexandre , pt had made it clear to them that he does not want ET tube if ever needed again, he also does not want PEG tube , he wants to eat and knows risk of aspiration and he is at peace to face the lord and let natural Lord wishes to happen ,will meet with family in AM and make sure all are on the same page , pt is able to make own decision he has been consistant with me as health care provider. did not qualify for LTAC but can benefit from PP , [facility] is set up for home use Problems: ERICH BLACK MD Nov 29, 2016 17:46
[2016-11-29 19:00] VITALS: BP 152/91
[2016-11-29] MEDS: FENTANYL PF 100 MCG/2 ML VIAL. IV PRN ×2 (20:46→22:33)
[2016-11-29 23:00] VITALS: BP 111/73
[2016-11-30] MEDS: ALBUTEROL SULFATE 2.5 MG/3 ML NEBU. NEB PRN (01:53)
[2016-11-30] MEDS: FENTANYL PF 100 MCG/2 ML VIAL. IV PRN ×2 (02:45→20:30)
[2016-11-30 03:00] VITALS: BP 120/75
[2016-11-30 07:00] VITALS: BP 118/79
[2016-11-30] MEDS: IPRATRPIUM/ALBUTEROL 0.5/2.5MG 3 ML NEBU. NEB SCH ×4 (07:34→19:51)
[2016-11-30] MEDS: ENOXAPARIN 40 MG/0.4 ML DISP.SYRIN. SQ SCH (09:19)
[2016-11-30] MEDS: FAMOTIDINE 20 MG/2 ML VIAL IVP SCH ×2 (09:20→20:25)
[2016-11-30] MEDS: AA 3%/ELECTROLYTE-TPN SOLN/GLY 1,000 ML IV SCH (09:30)
--- NOTE | 2016-11-30 09:47 | PDOC ---
G I PROGRESS NOTE Subjective Seems more animated last 2 days. Happy he's been allowed to eat something. Objective Family is requesting another swallow eval. Physical Exam Abdomen soft, not distended. Review of Relevant I have reviewed the following items edwin (where applicable) has been applied. Labs Microbiology 11/11/16 Blood Culture - Final, Complete NO GROWTH AFTER 5 DAYS Medications Current Medications Sodium Chloride 1,000 ml @ 1,000 mls/hr 1X ONCE IV Last administered on 11/11at 08:43; Start 11/11/16 at 09:00; Stop 11/11/16 at 09:59; Status DC Sodium Chloride (Iv Sodium Chloride 0.9% 1000ml Bag) 1,000 ml @ 1,000 mls/hr 1X ONCE IV Last administered on 11/11/16at 08:42; Start 11/11/16 at 08:45; Stop 11/11/16 at 09:44; Status DC Etomidate (Amidate) 20 mg 1X ONCE IV Last administered on 11/11/16at 08:45; Start 11/11/16 at 08:45; Stop 11/11/16 at 08:46; Status DC Succinylcholine Chloride 100 mg 100 mg 1X ONCE IV Last administered on at 08:45; Start 11/11/16 at 08:45; Stop 11/11/16 at 08:46; Status DC Fentanyl Citrate (Fentanyl 600 Mcg/30 ml QUANTITATIVE EQUITY HEAD) 30 ml @ 0 mls/hr CONT PRN IV PROTOCOL; Start 11/11/16 at 08:45; Stop 11/19/16 at 10:33; Status DC Fentanyl Citrate (Fentanyl 2ml Vial) 50 mcg PRN Q1HR PRN IV COMM Last administered on 11/30/16t 02:45; Start 11/11/16 at 08:45 Chlorhexidine Gluconate (Peridex) 15 ml BID MM Last administered on 11/20/16at 08:51; Start 11/11/16 at 21:00; Stop 11/20/16 at 15:18; Status DC Famotidine (Pepcid) 20 mg BID IVP ; Start 11/11/16 at 21:00; Stop 11/11/16 at 21:00; Status DC Morphine Sulfate 4 mg PRN Q1HR PRN IV COMM; Start 11/11/16 at 08:45; Stop at 10:58; Status DC Midazolam HCl 1 mg 1 mg PRN Q30MIN PRN IV COMM Last administered on 11/11/16at 09:15; Start 11/11/16 at 08:45; Stop 11/19/16 at 10:33; Status DC Midazolam HCl (Versed 100mg/ 100ml Premix) 100 ml @ 0 mls/hr CONT PRN IV PER PROTOCOL Last administered on 11/12/16at 23:36; Start 11/11/16 at 08:45; Stop 11/19/16 at 10:33; Status DC Vancomycin HCl (Vanco Per Pharmacy) 1 each PRN DAILY PRN MC SEE COMMENTS Last administered on 11/16/16at 08:47; Start 11/11/16 at 09:30; Stop 11/17/16 at 14 :03; Status DC Piperacillin Sod/ Tazobactam Sod (Zosyn Per Pharmacy) 1 each PRN DAILY PRN MC SEE COMMENTS; Start 11/11/16 at 09:30; Status Cancel Levofloxacin/ Dextrose 1 each 1 each PRN DAILY PRN MC SEE COMMENTS; Start at 09:30; Stop 11/19/16 at 10:35; Status DC Sodium Chloride 1,000 ml @ 1,000 mls/hr 1X ONCE IV Last administered on 11/11at 09:37; Start 11/11/16 at 09:30; Stop 11/11/16 at 10:29; Status DC Vancomycin HCl 1.25 gm/Sodium Chloride 250 ml @ 166.667 mls/hr 1X ONCE IV Last administered on 11/11/16at 10:54; Start 11/11/16 at 09:45; Stop 11/11/16 at 11:14; Status DC Piperacillin Sod/ Tazobactam Sod 4.5 gm/Sodium Chloride 100 ml @ 200 mls/hr 1X ONCE IV Last administered on 11/11/16at 09:55; Start 11/11/16 at 09:45; Stop 11/11/16 at 10:14; Status DC Levofloxacin/ Dextrose 150 ml @ 100 mls/hr 1X ONCE IV ; Start 11/11/16 at 09: 45; Stop 11/11/16 at 11:14; Status DC Norepinephrine Bitartrate 250 ml @ 0 mls/hr 1X ONCE IV Last administered on at 09:45; Start 11/11/16 at 09:45; Stop 11/11/16 at 09:46; Status DC Levofloxacin/ Dextrose 150 ml @ 100 mls/hr Q48H IV Last administered on at 10:45; Start 11/13/16 at 10:00; Stop 11/15/16 at 14:00; Status DC Piperacillin Sod/ Tazobactam Sod/ Sodium Chloride (Zosyn/Iv Sodium Chloride 0.9 % 50ml) 50 ml @ 100 mls/hr Q6HRS IV Last administered on 11/15/16at 12:58; Start 11/11/16 at 18:00; Stop 11/15/16 at 14:03; Status DC Dextrose 25 gm 1X ONCE IV Last administered on 11/11/16at 10:55; Start at 10:15; Stop 11/11/16 at 10:17; Status DC Insulin Human Regular 10 unit 10 unit 1X ONCE IV Last administered on at 11:28; Start 11/11/16 at 10:15; Stop 11/11/16 at 10:17; Status DC Calcium Chloride/ Sodium Chloride (Iv Sodium Chloride 0.9% 50ml) 60 ml @ 120 mls/hr 1X ONCE IV Last administered on 11/11/16at 10:55; Start 11/11/16 at 10 :30; Stop 11/11/16 at 10:59; Status DC Albuterol Sulfate (Ventolin Neb Soln) 2.5 mg 1X ONCE NEB ; Start 11/11/16 at 10:15; Stop 11/11/16 at 10:17; Status DC Ondansetron HCl (Zofran) 4 mg PRN Q8HRS PRN IV NAUSEA/VOMITING; Start at 10:30; Stop 11/12/16 at 10:29; Status DC Acetaminophen (Tylenol) 650 mg PRN Q4HRS PRN PO FEVER Last administered on at 21:53; Start 11/11/16 at 10:30; Stop 11/12/16 at 10:29; Status DC Hydrocortisone Sodium Succinate (Solu-Cortef) 100 mg Q8HRS IV Last administered on 11/18/16at 14:48; Start 11/11/16 at 14:00; Stop 11/18/16 at 17 :38; Status DC Enoxaparin Sodium (Lovenox 30mg Syringe) 30 mg Q24H SQ Last administered on at 12:15; Start 11/11/16 at 12:00; Stop 11/13/16 at 09:13; Status DC Midazolam HCl 5 mg 5 mg STK-MED ONCE .ROUTE ; Start 11/11/16 at 11:15; Stop at 11:16; Status DC Vancomycin HCl/ Sodium Chloride (Iv Sodium Chloride 0.9% 250ml) 250 ml @ 250 mls/hr Q24H IV Last administered on 11/12/16at 10:57; Start 11/12/16 at 11:00 ; Stop 11/13/16 at 13:07; Status DC Vancomycin HCl 1 each 1X ONCE MC ; Start 11/13/16 at 10:30; Stop 11/13/16 at 10:31; Status DC Famotidine 20 mg 20 mg QHS IVP Last administered on 11/16/16at 21:41; Start at 21:00; Stop 11/17/16 at 13:25; Status DC Norepinephrine Bitartrate (Levophed 8mg/ 250ml Premix Drip) 250 ml @ 0 mls/hr CONT PRN IV SEE I/O RECORD Last administered on 11/11/16at 17:08; Start at 13:30; Stop 11/20/16 at 15:18; Status DC Sodium Polystyrene Sulfonate 30 gm 30 gm 1X ONCE PO Last administered on 11/11at 18:13; Start 11/11/16 at 17:45; Stop 11/11/16 at 17:46; Status DC Sodium Chloride (Iv Sodium Chloride 0.9% 1000ml Bag) 1,000 ml @ 100 mls/hr Q10H IV Last administered on 11/12/16at 23:36; Start 11/11/16 at 17:45; Stop 11/13/16 at 21:27; Status DC Albuterol/ Ipratropium (Duoneb) 3 ml RTQID NEB Last administered on 11/30/16t 07 :34; Start 11/12/16 at 17:00 Enoxaparin Sodium 40 mg 40 mg Q24H SQ Last administered on 11/22/16at 12:20; Start 11/13/16 at 12:00; Stop 11/23/16 at 10:58; Status DC Vancomycin HCl 750 mg/Sodium Chloride 250 ml @ 250 mls/hr Q12H IV Last administered on 11/15/16at 02:38; Start 11/13/16 at 14:00; Stop 11/15/16 at 13 :58; Status DC Potassium Chloride/Dextrose/ Sod Cl (KCl 20 Meq In D5W-NS) 1,000 ml @ 75 mls/ hr [id number] IV Last administered on 11/15/16at 03:57; Start 11/14/16 at 09:45; Stop 11/15/16 at 11:12; Status DC Vancomycin HCl 1 each 1 each 1X ONCE MC Last administered on 11/15/16at 13:30 ; Start 11/15/16 at 13:30; Stop 11/15/16 at 13:31; Status DC Propofol (Diprivan) 100 ml @ 0 mls/hr CONT PRN IV SEE I/O RECORD Last administered on 11/18/16at 01:50; Start 11/14/16 at 10:45; Stop 11/19/16 at 10 :33; Status DC Sodium Chloride (Normal Saline Flush) 10 ml QSHIFT PRN IV AFTER MEDS AND BLOOD DRAWS; Start 11/15/16 at 10:00; Stop 11/15/16 at 10:00; Status DC Sodium Chloride (Normal Saline Flush) 10 ml PRN Q5MIN PRN IV AFTER MEDS AND BLOOD DRAWS; Start 11/15/16 at 10:00 Sodium Chloride 20 ml 20 ml PRN Q5MIN PRN IV AFTER MEDS AND BLOOD DRAWS; Start 11/15/16 at 10:00 Potassium Chloride/Dextrose/ Sod Cl (KCl 20 Meq In D5W-1/2 NS) 1,000 ml @ 80 mls/hr 1X ONCE IV Last administered on 11/15/16at 13:01; Start 11/15/16 at 11 :15; Stop 11/15/16 at 23:44; Status DC Insulin Aspart (Novolog) 0-7 UNITS TIDWMEALS SQ Last administered on at 09:15; Start 11/15/16 at 17:00; Stop 11/23/16 at 10:58; Status DC Dextrose 12.5 gm 12.5 gm PRN Q15MIN PRN IV SEE COMMENTS Last administered on 21:28; Start 11/15/16 at 12:45 Vancomycin HCl 1 gm/Sodium Chloride 250 ml @ 250 mls/hr Q12H IV Last administered on 11/17/16at 02:13; Start 11/15/16 at 14:00; Stop 11/17/16 at 14 :03; Status DC Levofloxacin/ Dextrose 150 ml @ 100 mls/hr Q24H IV Last administered on at 09:11; Start 11/16/16 at 10:00; Stop 11/18/16 at 11:11; Status DC Piperacillin Sod/ Tazobactam Sod 4.5 gm/Sodium Chloride 100 ml @ 200 mls/hr Q6HRS IV Last administered on 11/17/16at 10:57; Start 11/15/16 at 18:00; Stop 11/17/16 at 14:04; Status DC Potassium Chloride/Dextrose/ Sod Cl (KCl 20 Meq In D5W-1/2 NS) 1,000 ml @ 80 mls/hr [id number] IV Last administered on 11/21/16at 01:15; Start 11/16/16 at 07: 00; Stop 11/21/16 at 15:30; Status DC Famotidine (Pepcid) 20 mg Q12HR IVP Last administered on 11/30/16 09:20; Start 11/17/16 at 21:00 Hydrocortisone Sodium Succinate (Solu-Cortef) 25 mg Q8HRS IV Last administered on 11/21/16at 14:03; Start 11/18/16 at 22:00; Stop 11/21/16 at 14:07; Status DC Albuterol Sulfate 2.5 mg 2.5 mg PRN Q2HRS PRN NEB SHORTNESS OF BREATH Last administered on 11/30/16 01:53; Start 11/20/16 at 16:45 Potassium Chloride 30 meq/ Sodium Chloride 1,015 ml @ 80 mls/hr [id number] IV Last administered on 11/21/16at 12:13; Start 11/21/16 at 11:00; Stop 11/21/16 at 21:16; Status DC Amino Acids/ Glycerin/ Electrolytes (Procalamine) 1,000 ml @ 60 mls/hr [id number] IV Last administered on 11/29/16 17:28; Start 11/21/16 at 22:00 Enoxaparin Sodium (Lovenox 60mg Syringe) 60 mg Q12HR SQ Last administered on 08:29; Start 11/24/16 at 13:00; Stop 11/25/16 at 14:16; Status DC Info (Anti-Coagulation Monitoring By Pharmacy) 1 each PRN DAILY PRN MC SEE COMMENTS Last administered on 11/24/16 14:02; Start 11/24/16 at 14:00; Stop at 12:38; Status DC Enoxaparin Sodium (Lovenox 40mg Syringe) 40 mg DAILY SQ Last administered on 09:19; Start 11/26/16 at 09:00 Active Scripts Active Reported Morphine Sulfate 10 Mg/0.5 Ml Disp.syrin 5 Mg PO PRN Q3HRS PRN Duoneb 0.5-3(2.5) Mg/3 Ml (Albuterol/Ipratropium) 3 Ml Ampul.neb 3 Ml NEB PRN Q2HR PRN Prilosec (Omeprazole Magnesium) 10 Mg Suspdr.pkt 20 Mg PO DAILY Meloxicam 15 Mg Tablet 1 Tab PO DAILY Norvasc (Amlodipine Besylate) 5 Mg Tablet 1 Tab PO DAILY Miralax (Polyethylene Glycol 3350) 17 Gm Powd.pack 1 Packet PO DAILY PRN Symbicort 160-4.5 Mcg Inhaler (Budesonide/Formoterol Fumarate) 10.2 Gm Hfa.aer.ad 2 Puff IH BID Cardizem Tablet (Diltiazem Hcl) 30 Mg Tablet 300 Mg PO DAILY Spironolactone 25 Mg Tablet 1 Tab PO DAILY Prednisone 10 Mg Tablet 10 Mg PO UD Take 3 tablets by mouth twice a day for 3 days, then take 2 tablets by mouth twice a day for 3 days, then take 1 tablet by mouth twice a day for 3 days, then take 1 tablet by mouth daily x 3 days, then stop. Oxycodone Hcl 20 Mg Tablet 20 Mg PO PRN QID PRN Bisacodyl 5 Mg Tablet.dr 5 Mg PO DAILY06 Clonidine Hcl 0.3 Mg Tablet 0.3 Mg PO TID Vitals/I & O Vital Sign - Last 24 Hours 11/29/16 11/29/16 11/29/16 11/29/16 11:00 11:08 14:54 15:00 Temp 97.5 98.4 97.5 98.4 Pulse 102 104 Resp 18 18 B/P 147/92 135/87 Pulse Ox 98 96 99 O2 Delivery Nasal Cannula Nasal Cannula Nasal Cannula Nasal Cannula O2 Flow Rate 2.0 2.0 2.0 2.0 11/29/16 11/29/16 11/29/16 11/29/16 19:00 19:41 19:53 20:46 Temp 98.9 98.9 Pulse 96 Resp 20 22 B/P 152/91 Pulse Ox 97 97 O2 Delivery Nasal Cannula Nasal Cannula Bi-pap Nasal Cannula O2 Flow Rate 2.0 2.0 2.0 11/29/16 11/29/16 11/30/16 11/30/16 22:33 23:00 02:45 03:00 Temp 97.8 97.8 97.8 97.8 Pulse 109 109 Resp 22 22 18 B/P 111/73 120/75 Pulse Ox 90 93 O2 Delivery Nasal Cannula Nasal Cannula BiPAP/CPAP Room Air O2 Flow Rate 2.0 11/30/16 11/30/16 11/30/16 03:15 07:00 07:35 Temp 97.5 97.5 Pulse 104 Resp 20 19 B/P 118/79 Pulse Ox 100 97 O2 Delivery BiPAP/CPAP Nasal Cannula Nasal Cannula O2 Flow Rate 2.0 2.0 Intake and Output 11/29/16 11/29/16 11/30/16 15:00 23:00 07:00 Output Total 200 ml 525 ml 300 ml Balance -200 ml -525 ml -300 ml Problem List Problems Medical Problems: (1) Acute and chronic respiratory failure ([id number]) Status: Acute (2) HCAP (healthcare-associated pneumonia) Status: Acute (3) Hyperkalemia Status: Acute (4) Respiratory failure Status: Acute (5) Septic shock Status: Acute Assessment Abnormal swallowing/aspiration risk--prohibitive risk for PEG due pulmonary disease (does not want in any case). Plan of Care: Continue current Tx, Mgmt Plan of Care Note Will defer ordering of any further swallowing studies to primary service. If we are going to allow eating in any case, I would not repeat. ABRAHAM AMAYA MD Nov 30, 2016 09:47
--- NOTE | 2016-11-30 10:58 | PDOC ---
SUBJECTIVE Subjective LOOKS ALERT AND ORIENTED, FAMILY AT BED SIDE SON AND DAUGHTER ALFREDO BENNETT , AND ON THE PHONE SISTER JERMAINE OBJECTIVE Objective vss Vital Signs Vital Signs Date Time Temp Pulse Resp B/P Pulse Ox O2 Delivery O2 Flow Rate FiO2 11/30/16 07:35 97 Nasal Cannula 2.0 11/30/16 07:00 97.5 104 19 118/79 100 Nasal Cannula 2.0 97.5 11/30/16 03:15 20 BiPAP/CPAP 11/30/16 03:00 97.8 109 18 120/75 93 Room Air 97.8 11/30/16 02:45 22 BiPAP/CPAP 11/29/16 23:00 97.8 109 20 111/73 90 Nasal Cannula 2.0 97.8 11/29/16 22:33 22 Nasal Cannula 11/29/16 20:46 22 Nasal Cannula 11/29/16 19:53 Bi-pap 2.0 11/29/16 19:41 97 Nasal Cannula 2.0 11/29/16 19:00 98.9 96 20 152/91 97 Nasal Cannula 2.0 98.9 11/29/16 15:00 98.4 104 18 135/87 99 Nasal Cannula 2.0 98.4 11/29/16 14:54 Nasal Cannula 2.0 11/29/16 11:08 96 Nasal Cannula 2.0 11/29/16 11:00 97.5 102 18 147/92 98 Nasal Cannula 2.0 97.5 I & O Intake and Output 11/30/16 07:00 Output Total 1025 ml Balance -1025 ml Output Urine Total 1025 ml PHYSICAL EXAM Physical Exam lungs with good BS heart RRR abd soft ext no edema ASSESSMENT/PLAN Assessment/Plan 45 min meeting with family and pt and Father Alexandre, pt made it clear to every body no ET tube , he wants to eat despite risk of aspiration, does not want PEG tube, family request video swallow to see if there is any consitancy of food he can tolerate even though pt made it clear he wants to eat any way, will proceed with that , he wants PT/OT at home , family wants SNU , will arrange for SNU hope for discharge in [facility] SNU or Home with home health Problems: ERICH BLACK MD Nov 30, 2016 10:58
[2016-11-30 11:13] VITALS: BP 131/92
[2016-11-30] MEDS ORDERED: BARIUM SULFATE 40% 148 GM PWD PO ONE (12:00)
--- NOTE | 2016-11-30 13:49 | RAD ---
[place] swallowed. History: Aspiration, wet quality to voice, recent ventilation Video swallow study was done in conjunction speech therapy. There is premature spillage of the liquids and occasionally solids into the pharynx before the peristalsis is initiated. There is mild penetration with thin liquids on 2 instances out of multiple swallows. There is no definite aspiration. There are or intermittent mild residuals which cleared of the patient took an additional swallow. Impression: 1. No aspiration noted. 1.7 minutes of fluoroscopy were used for the study. One spot imaging and 5 fluoroscopic images were saved to the PACS.
[2016-11-30 14:58] VITALS: BP 122/83
[2016-11-30 19:00] VITALS: BP 105/71
[2016-11-30 23:00] VITALS: BP 119/62
[2016-12-01] MEDS: AA 3%/ELECTROLYTE-TPN SOLN/GLY 1,000 ML IV SCH ×2 (01:54→15:20)
[2016-12-01 03:00] VITALS: BP 122/70
[2016-12-01] MEDS: ALBUTEROL SULFATE 2.5 MG/3 ML NEBU. NEB PRN (04:03)
[2016-12-01 07:00] VITALS: BP 124/83
[2016-12-01] MEDS: IPRATRPIUM/ALBUTEROL 0.5/2.5MG 3 ML NEBU. NEB SCH ×5 (07:49→19:55)
[2016-12-01] MEDS: ENOXAPARIN 40 MG/0.4 ML DISP.SYRIN. SQ SCH (09:14)
[2016-12-01] MEDS: FAMOTIDINE 20 MG/2 ML VIAL IVP SCH ×3 (09:15→21:13)
--- NOTE | 2016-12-01 10:00 | PDOC ---
G I PROGRESS NOTE Subjective No GI complaints. Objective Passed swallow study/video swallow yesterday. Physical Exam Abdomen soft, not distended nor tender. Review of Relevant I have reviewed the following items edwin (where applicable) has been applied. Labs Microbiology 11/11/16 Blood Culture - Final, Complete NO GROWTH AFTER 5 DAYS Medications Current Medications Sodium Chloride 1,000 ml @ 1,000 mls/hr 1X ONCE IV Last administered on 11/11at 08:43; Start 11/11/16 at 09:00; Stop 11/11/16 at 09:59; Status DC Sodium Chloride (Iv Sodium Chloride 0.9% 1000ml Bag) 1,000 ml @ 1,000 mls/hr 1X ONCE IV Last administered on 11/11/16at 08:42; Start 11/11/16 at 08:45; Stop 11/11/16 at 09:44; Status DC Etomidate (Amidate) 20 mg 1X ONCE IV Last administered on 11/11/16at 08:45; Start 11/11/16 at 08:45; Stop 11/11/16 at 08:46; Status DC Succinylcholine Chloride 100 mg 100 mg 1X ONCE IV Last administered on at 08:45; Start 11/11/16 at 08:45; Stop 11/11/16 at 08:46; Status DC Fentanyl Citrate (Fentanyl 600 Mcg/30 ml DENTAL DETAIL REPRESENTATIVE) 30 ml @ 0 mls/hr CONT PRN IV PROTOCOL; Start 11/11/16 at 08:45; Stop 11/19/16 at 10:33; Status DC Fentanyl Citrate (Fentanyl 2ml Vial) 50 mcg PRN Q1HR PRN IV COMM Last administered on 11/30/16t 20:30; Start 11/11/16 at 08:45 Chlorhexidine Gluconate (Peridex) 15 ml BID MM Last administered on 11/20/16at 08:51; Start 11/11/16 at 21:00; Stop 11/20/16 at 15:18; Status DC Famotidine (Pepcid) 20 mg BID IVP ; Start 11/11/16 at 21:00; Stop 11/11/16 at 21:00; Status DC Morphine Sulfate 4 mg PRN Q1HR PRN IV COMM; Start 11/11/16 at 08:45; Stop at 10:58; Status DC Midazolam HCl 1 mg 1 mg PRN Q30MIN PRN IV COMM Last administered on 11/11/16at 09:15; Start 11/11/16 at 08:45; Stop 11/19/16 at 10:33; Status DC Midazolam HCl (Versed 100mg/ 100ml Premix) 100 ml @ 0 mls/hr CONT PRN IV PER PROTOCOL Last administered on 11/12/16at 23:36; Start 11/11/16 at 08:45; Stop 11/19/16 at 10:33; Status DC Vancomycin HCl (Vanco Per Pharmacy) 1 each PRN DAILY PRN MC SEE COMMENTS Last administered on 11/16/16at 08:47; Start 11/11/16 at 09:30; Stop 11/17/16 at 14 :03; Status DC Piperacillin Sod/ Tazobactam Sod (Zosyn Per Pharmacy) 1 each PRN DAILY PRN MC SEE COMMENTS; Start 11/11/16 at 09:30; Status Cancel Levofloxacin/ Dextrose 1 each 1 each PRN DAILY PRN MC SEE COMMENTS; Start at 09:30; Stop 11/19/16 at 10:35; Status DC Sodium Chloride 1,000 ml @ 1,000 mls/hr 1X ONCE IV Last administered on 11/11at 09:37; Start 11/11/16 at 09:30; Stop 11/11/16 at 10:29; Status DC Vancomycin HCl 1.25 gm/Sodium Chloride 250 ml @ 166.667 mls/hr 1X ONCE IV Last administered on 11/11/16at 10:54; Start 11/11/16 at 09:45; Stop 11/11/16 at 11:14; Status DC Piperacillin Sod/ Tazobactam Sod 4.5 gm/Sodium Chloride 100 ml @ 200 mls/hr 1X ONCE IV Last administered on 11/11/16at 09:55; Start 11/11/16 at 09:45; Stop 11/11/16 at 10:14; Status DC Levofloxacin/ Dextrose 150 ml @ 100 mls/hr 1X ONCE IV ; Start 11/11/16 at 09: 45; Stop 11/11/16 at 11:14; Status DC Norepinephrine Bitartrate 250 ml @ 0 mls/hr 1X ONCE IV Last administered on at 09:45; Start 11/11/16 at 09:45; Stop 11/11/16 at 09:46; Status DC Levofloxacin/ Dextrose 150 ml @ 100 mls/hr Q48H IV Last administered on at 10:45; Start 11/13/16 at 10:00; Stop 11/15/16 at 14:00; Status DC Piperacillin Sod/ Tazobactam Sod/ Sodium Chloride (Zosyn/Iv Sodium Chloride 0.9 % 50ml) 50 ml @ 100 mls/hr Q6HRS IV Last administered on 11/15/16at 12:58; Start 11/11/16 at 18:00; Stop 11/15/16 at 14:03; Status DC Dextrose 25 gm 1X ONCE IV Last administered on 11/11/16at 10:55; Start at 10:15; Stop 11/11/16 at 10:17; Status DC Insulin Human Regular 10 unit 10 unit 1X ONCE IV Last administered on at 11:28; Start 11/11/16 at 10:15; Stop 11/11/16 at 10:17; Status DC Calcium Chloride/ Sodium Chloride (Iv Sodium Chloride 0.9% 50ml) 60 ml @ 120 mls/hr 1X ONCE IV Last administered on 11/11/16at 10:55; Start 11/11/16 at 10 :30; Stop 11/11/16 at 10:59; Status DC Albuterol Sulfate (Ventolin Neb Soln) 2.5 mg 1X ONCE NEB ; Start 11/11/16 at 10:15; Stop 11/11/16 at 10:17; Status DC Ondansetron HCl (Zofran) 4 mg PRN Q8HRS PRN IV NAUSEA/VOMITING; Start at 10:30; Stop 11/12/16 at 10:29; Status DC Acetaminophen (Tylenol) 650 mg PRN Q4HRS PRN PO FEVER Last administered on at 21:53; Start 11/11/16 at 10:30; Stop 11/12/16 at 10:29; Status DC Hydrocortisone Sodium Succinate (Solu-Cortef) 100 mg Q8HRS IV Last administered on 11/18/16at 14:48; Start 11/11/16 at 14:00; Stop 11/18/16 at 17 :38; Status DC Enoxaparin Sodium (Lovenox 30mg Syringe) 30 mg Q24H SQ Last administered on at 12:15; Start 11/11/16 at 12:00; Stop 11/13/16 at 09:13; Status DC Midazolam HCl 5 mg 5 mg STK-MED ONCE .ROUTE ; Start 11/11/16 at 11:15; Stop at 11:16; Status DC Vancomycin HCl/ Sodium Chloride (Iv Sodium Chloride 0.9% 250ml) 250 ml @ 250 mls/hr Q24H IV Last administered on 11/12/16at 10:57; Start 11/12/16 at 11:00 ; Stop 11/13/16 at 13:07; Status DC Vancomycin HCl 1 each 1X ONCE MC ; Start 11/13/16 at 10:30; Stop 11/13/16 at 10:31; Status DC Famotidine 20 mg 20 mg QHS IVP Last administered on 11/16/16at 21:41; Start at 21:00; Stop 11/17/16 at 13:25; Status DC Norepinephrine Bitartrate (Levophed 8mg/ 250ml Premix Drip) 250 ml @ 0 mls/hr CONT PRN IV SEE I/O RECORD Last administered on 11/11/16at 17:08; Start at 13:30; Stop 11/20/16 at 15:18; Status DC Sodium Polystyrene Sulfonate 30 gm 30 gm 1X ONCE PO Last administered on 11/11at 18:13; Start 11/11/16 at 17:45; Stop 11/11/16 at 17:46; Status DC Sodium Chloride (Iv Sodium Chloride 0.9% 1000ml Bag) 1,000 ml @ 100 mls/hr Q10H IV Last administered on 11/12/16at 23:36; Start 11/11/16 at 17:45; Stop 11/13/16 at 21:27; Status DC Albuterol/ Ipratropium (Duoneb) 3 ml RTQID NEB Last administered on 12/01/16t 07 :49; Start 11/12/16 at 17:00 Enoxaparin Sodium 40 mg 40 mg Q24H SQ Last administered on 11/22/16at 12:20; Start 11/13/16 at 12:00; Stop 11/23/16 at 10:58; Status DC Vancomycin HCl 750 mg/Sodium Chloride 250 ml @ 250 mls/hr Q12H IV Last administered on 11/15/16at 02:38; Start 11/13/16 at 14:00; Stop 11/15/16 at 13 :58; Status DC Potassium Chloride/Dextrose/ Sod Cl (KCl 20 Meq In D5W-NS) 1,000 ml @ 75 mls/ hr [id number] IV Last administered on 11/15/16at 03:57; Start 11/14/16 at 09:45; Stop 11/15/16 at 11:12; Status DC Vancomycin HCl 1 each 1 each 1X ONCE MC Last administered on 11/15/16at 13:30 ; Start 11/15/16 at 13:30; Stop 11/15/16 at 13:31; Status DC Propofol (Diprivan) 100 ml @ 0 mls/hr CONT PRN IV SEE I/O RECORD Last administered on 11/18/16at 01:50; Start 11/14/16 at 10:45; Stop 11/19/16 at 10 :33; Status DC Sodium Chloride (Normal Saline Flush) 10 ml QSHIFT PRN IV AFTER MEDS AND BLOOD DRAWS; Start 11/15/16 at 10:00; Stop 11/15/16 at 10:00; Status DC Sodium Chloride (Normal Saline Flush) 10 ml PRN Q5MIN PRN IV AFTER MEDS AND BLOOD DRAWS; Start 11/15/16 at 10:00 Sodium Chloride 20 ml 20 ml PRN Q5MIN PRN IV AFTER MEDS AND BLOOD DRAWS; Start 11/15/16 at 10:00 Potassium Chloride/Dextrose/ Sod Cl (KCl 20 Meq In D5W-1/2 NS) 1,000 ml @ 80 mls/hr 1X ONCE IV Last administered on 11/15/16at 13:01; Start 11/15/16 at 11 :15; Stop 11/15/16 at 23:44; Status DC Insulin Aspart (Novolog) 0-7 UNITS TIDWMEALS SQ Last administered on at 09:15; Start 11/15/16 at 17:00; Stop 11/23/16 at 10:58; Status DC Dextrose 12.5 gm 12.5 gm PRN Q15MIN PRN IV SEE COMMENTS Last administered on 21:28; Start 11/15/16 at 12:45 Vancomycin HCl 1 gm/Sodium Chloride 250 ml @ 250 mls/hr Q12H IV Last administered on 11/17/16at 02:13; Start 11/15/16 at 14:00; Stop 11/17/16 at 14 :03; Status DC Levofloxacin/ Dextrose 150 ml @ 100 mls/hr Q24H IV Last administered on at 09:11; Start 11/16/16 at 10:00; Stop 11/18/16 at 11:11; Status DC Piperacillin Sod/ Tazobactam Sod 4.5 gm/Sodium Chloride 100 ml @ 200 mls/hr Q6HRS IV Last administered on 11/17/16at 10:57; Start 11/15/16 at 18:00; Stop 11/17/16 at 14:04; Status DC Potassium Chloride/Dextrose/ Sod Cl (KCl 20 Meq In D5W-1/2 NS) 1,000 ml @ 80 mls/hr [id number] IV Last administered on 11/21/16at 01:15; Start 11/16/16 at 07: 00; Stop 11/21/16 at 15:30; Status DC Famotidine (Pepcid) 20 mg Q12HR IVP Last administered on 12/01/16 09:15; Start 11/17/16 at 21:00 Hydrocortisone Sodium Succinate (Solu-Cortef) 25 mg Q8HRS IV Last administered on 11/21/16at 14:03; Start 11/18/16 at 22:00; Stop 11/21/16 at 14:07; Status DC Albuterol Sulfate 2.5 mg 2.5 mg PRN Q2HRS PRN NEB SHORTNESS OF BREATH Last administered on 12/01/16 04:03; Start 11/20/16 at 16:45 Potassium Chloride 30 meq/ Sodium Chloride 1,015 ml @ 80 mls/hr [id number] IV Last administered on 11/21/16at 12:13; Start 11/21/16 at 11:00; Stop 11/21/16 at 21:16; Status DC Amino Acids/ Glycerin/ Electrolytes (Procalamine) 1,000 ml @ 60 mls/hr [id number] IV Last administered on 12/01/16 01:54; Start 11/21/16 at 22:00 Enoxaparin Sodium (Lovenox 60mg Syringe) 60 mg Q12HR SQ Last administered on 08:29; Start 11/24/16 at 13:00; Stop 11/25/16 at 14:16; Status DC Info (Anti-Coagulation Monitoring By Pharmacy) 1 each PRN DAILY PRN MC SEE COMMENTS Last administered on 11/24/16 14:02; Start 11/24/16 at 14:00; Stop at 12:38; Status DC Enoxaparin Sodium (Lovenox 40mg Syringe) 40 mg DAILY SQ Last administered on 09:14; Start 11/26/16 at 09:00 Barium Sulfate (Varibar Thin Liquid) 148 gm 1X ONCE PO Last administered on 13:33; Start 11/30/16 at 12:00; Stop 11/30/16 at 12:01; Status DC Active Scripts Active Reported Morphine Sulfate 10 Mg/0.5 Ml Disp.syrin 5 Mg PO PRN Q3HRS PRN Duoneb 0.5-3(2.5) Mg/3 Ml (Albuterol/Ipratropium) 3 Ml Ampul.neb 3 Ml NEB PRN Q2HR PRN Prilosec (Omeprazole Magnesium) 10 Mg Suspdr.pkt 20 Mg PO DAILY Meloxicam 15 Mg Tablet 1 Tab PO DAILY Norvasc (Amlodipine Besylate) 5 Mg Tablet 1 Tab PO DAILY Miralax (Polyethylene Glycol 3350) 17 Gm Powd.pack 1 Packet PO DAILY PRN Symbicort 160-4.5 Mcg Inhaler (Budesonide/Formoterol Fumarate) 10.2 Gm Hfa.aer.ad 2 Puff IH BID Cardizem Tablet (Diltiazem Hcl) 30 Mg Tablet 300 Mg PO DAILY Spironolactone 25 Mg Tablet 1 Tab PO DAILY Prednisone 10 Mg Tablet 10 Mg PO UD Take 3 tablets by mouth twice a day for 3 days, then take 2 tablets by mouth twice a day for 3 days, then take 1 tablet by mouth twice a day for 3 days, then take 1 tablet by mouth daily x 3 days, then stop. Oxycodone Hcl 20 Mg Tablet 20 Mg PO PRN QID PRN Bisacodyl 5 Mg Tablet.dr 5 Mg PO DAILY06 Clonidine Hcl 0.3 Mg Tablet 0.3 Mg PO TID Vitals/I & O Vital Sign - Last 24 Hours 11/30/16 11/30/16 11/30/16 11/30/16 11:13 11:20 14:58 16:04 Temp 97.5 98.5 97.5 98.5 Pulse 112 118 Resp 18 18 B/P 131/92 122/83 Pulse Ox 98 97 100 O2 Delivery Nasal Cannula Nasal Cannula Nasal Cannula Nasal Cannula O2 Flow Rate 2.0 2.0 4.0 3.0 11/30/16 11/30/16 11/30/16 11/30/16 19:00 19:53 20:00 20:30 Temp 98.2 98.2 Pulse 109 Resp 18 18 B/P 105/71 Pulse Ox 97 100 O2 Delivery Nasal Cannula Nasal Cannula Bi-pap Nasal Cannula O2 Flow Rate 3.0 3.0 4.0 3.0 11/30/16 11/30/16 11/30/16 12/01/16 21:00 22:03 23:00 03:00 Temp 97.9 97.9 97.9 97.9 Pulse 90 80 Resp 18 18 18 B/P 119/62 122/70 Pulse Ox 97 98 O2 Delivery Room Air Nasal Cannula BiPAP/CPAP O2 Flow Rate 3.0 3.0 12/01/16 12/01/16 12/01/16 04:05 07:00 07:51 Temp 97.6 97.6 Pulse 124 Resp 22 B/P 124/83 Pulse Ox 93 96 93 O2 Delivery BiPAP/CPAP Nasal Cannula BiPAP/CPAP O2 Flow Rate 4.5 Intake and Output 11/30/16 11/30/16 12/01/16 15:00 23:00 07:00 Intake Total 80 ml 640 ml Output Total 150 ml 200 ml 400 ml Balance -150 ml -120 ml 240 ml Problem List Problems Medical Problems: (1) Acute and chronic respiratory failure (zlunt-mu-[id number]) Status: Acute (2) HCAP (healthcare-associated pneumonia) Status: Acute (3) Hyperkalemia Status: Acute (4) Respiratory failure Status: Acute (5) Septic shock Status: Acute Assessment Bolus dysphagia, improved sufficiently to allow po. Plan of Care Note Continue feeding per speech rec's. We will sign off; call if we can help. ABRAHAM AMAYA MD Dec 01, 2016 10:00
[2016-12-01 10:56] VITALS: BP 131/82
--- NOTE | 2016-12-01 11:49 | PDOC ---
SUBJECTIVE Subjective feeling good, passed swallow test, continue feeding, breathing good OBJECTIVE Vital Signs Vital Signs Date Time Temp Pulse Resp B/P Pulse Ox O2 Delivery O2 Flow Rate FiO2 12/01/16 10:56 97.6 120 20 131/82 94 Nasal Cannula 4.5 97.6 12/01/16 07:51 93 BiPAP/CPAP 12/01/16 07:40 Nasal Cannula 4.0 12/01/16 07:00 97.6 124 22 124/83 96 Nasal Cannula 4.5 97.6 12/01/16 04:05 93 BiPAP/CPAP 12/01/16 03:00 97.9 80 18 122/70 98 BiPAP/CPAP 97.9 11/30/16 23:00 97.9 90 18 119/62 97 Nasal Cannula 3.0 97.9 11/30/16 22:03 18 Room Air 11/30/16 21:00 3.0 11/30/16 20:30 18 Nasal Cannula 3.0 11/30/16 20:00 Bi-pap 4.0 11/30/16 19:53 100 Nasal Cannula 3.0 11/30/16 19:00 98.2 109 18 105/71 97 Nasal Cannula 3.0 98.2 11/30/16 16:04 Nasal Cannula 3.0 11/30/16 14:58 98.5 118 18 122/83 100 Nasal Cannula 4.0 98.5 I & O Intake and Output 12/01/16 07:00 Intake Total 720 ml Output Total 750 ml Balance -30 ml Intake Oral 320 ml Other 400 ml Output Urine Total 750 ml # Voids 6 PHYSICAL EXAM Physical Exam lungs decrease BS but no wheezing heart mild tachy abd soft ext no edema ASSESSMENT/PLAN Assessment/Plan discharge to SNU or home with HH today, continue bronchodilators and steroid inhaler Problems: ERICH BLACK MD Dec 01, 2016 11:49
--- NOTE | 2016-12-01 11:57 | PDOC3 ---
Discharge Summary* Date of Admission: Dec 12, 2016 Date of Discharge: Dec 01, 2016 Admitting Diagnosis Problems Medical Problems: (1) Acute and chronic respiratory failure (dwuxv-iz-xvfwxmn) Status: Acute (2) HCAP (healthcare-associated pneumonia) Status: Acute (3) Hyperkalemia Status: Acute (4) Respiratory failure Status: Acute (5) Septic shock Status: Acute Final Diagnosis 1. Tyvux-qu-ffeevcx hypercapnic and hypoxic respiratory failure secondary possible gram pos and gram negative pneumonia and septic shock. resolved 2. 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 3. Ozcwx-pc-rhsaezb renal failure.resolved 4. Severe protein-calorie malnutrition. 5. Bilateral infiltrates consistent with pneumonia. resolve by CXR 6. Recent echo with normal ejection fraction. 7. Septic shock off pressors 8. DO NOT INTUBATE per pt wishes 9. Bolus dysphagia improved no aspiration on video swallow Problems Medical Problems: (1) Acute and chronic respiratory failure (bgkgf-vk-bwpugye) Status: Acute (2) HCAP (healthcare-associated pneumonia) Status: Acute (3) Hyperkalemia Status: Acute (4) Respiratory failure Status: Acute (5) Septic shock Status: Acute CONSULTS Pulmonary Dr. Pinzon Paliative Care GI Dr. Shultz Ethics consult Procedures video swallow CXR several KUB CT head Brief Hospital Course Mr. Taylor is a 71 old [sex] who presented with [ ] Disposition/Orders: D/C to Home w/ HH CONDITION AT DISCHARGE: Improved, Comment Diet: Pureed Scheduled Amlodipine Besylate (Norvasc) 1 TAB PO DAILY (Reported) Bisacodyl (Bisacodyl) 5 MG PO DAILY06 (Reported) Budesonide/Formoterol Fumarate (Symbicort 160-4.5 Mcg Inhaler) 2 PUFF IH BID ( Reported) Clonidine Hcl (Clonidine Hcl) 0.3 MG PO TID (Reported) Diltiazem Hcl (Cardizem Tablet) 300 MG PO DAILY (Reported) Meloxicam (Meloxicam) 1 TAB PO DAILY (Reported) Omeprazole Magnesium (Prilosec) 20 MG PO DAILY (Reported) Prednisone (Prednisone) 10 MG PO UD (Reported) Spironolactone (Spironolactone) 1 TAB PO DAILY (Reported) Scheduled PRN Ipratropium/Albuterol Sulfate (Duoneb 0.5-3(2.5) Mg/3 Ml) 3 ML NEB PRN Q2HR PRN PRN SHORTNESS OF BREATH (Reported) Morphine Sulfate (Morphine Sulfate) 5 MG PO PRN Q3HRS PRN PRN PAIN (Reported) Oxycodone Hcl (Oxycodone Hcl) 20 MG PO PRN QID PRN PRN PAIN (Reported) Polyethylene Glycol 3350 (Miralax) 1 PACKET PO DAILY PRN PRN CONSTIPATION ( Reported) FOLLOW UP APPOINTMENT: Dr. Irizarry 2 week Time Spent Total time spent with patient [] minutes for coordination of care, counseling, and education. ERICH BLACK MD Dec 01, 2016 11:57
--- NOTE | 2016-12-01 12:12 | PDOC ---
PULMONARY PROGRESS NOTES Subjective PT PASSED SWALLOW EXAM EATING Vitals Vital Signs Date Time Temp Pulse Resp B/P Pulse Ox O2 Delivery O2 Flow Rate FiO2 12/01/16 10:56 97.6 120 20 131/82 94 Nasal Cannula 4.5 97.6 General: Alert Lungs: Other (decrease bs) Cardiovascular: S1, S2 Abdomen: Soft, Non-tender Neuro Exam: Alert Extremities: No Edema Skin: Warm, Dry Medications Active Scripts Medications Dose Route/Sig Days Date Category Dose Instructions Morphine Sulfate 10 Mg/0.5 Ml Disp.syrin 5 Mg PO PRN Q3HRS PRN 11/11/16 Reported Duoneb 0.5-3(2.5) Mg/3 Ml (Albuterol/Ipratropium) 3 Ml Ampul.neb 3 Ml NEB PRN Q2HR PRN 11/11/16 Reported Prilosec (Omeprazole Magnesium) 10 Mg Suspdr.pkt 20 Mg PO DAILY 11/11/16 Reported Meloxicam 15 Mg Tablet 1 Tab PO DAILY 11/11/16 Reported Norvasc (Amlodipine Besylate) 5 Mg Tablet 1 Tab PO DAILY 11/11/16 Reported Miralax (Polyethylene Glycol 3350) 17 Gm Powd.pack 1 Packet PO DAILY PRN 11/11/16 Reported Symbicort 160-4.5 Mcg Inhaler (Budesonide/Formoterol Fumarate) 10.2 Gm Hfa.aer.ad 2 Puff IH BID 11/11/16 Reported Cardizem Tablet (Diltiazem Hcl) 30 Mg Tablet 300 Mg PO DAILY 11/11/16 Reported Spironolactone 25 Mg Tablet 1 Tab PO DAILY 11/11/16 Reported Prednisone 10 Mg Tablet 10 Mg PO UD 11/11/16 Reported Take 3 tablets by mouth twice a day for 3 days, then take 2 tablets by mouth twice a day for 3 days, then take 1 tablet by mouth twice a day for 3 days, then take 1 tablet by mouth daily x 3 days, then stop. Oxycodone Hcl 20 Mg Tablet 20 Mg PO PRN QID PRN 06/13/16 Reported Bisacodyl 5 Mg Tablet.dr 5 Mg PO DAILY06 06/13/16 Reported Clonidine Hcl 0.3 Mg Tablet 0.3 Mg PO TID 12/28/13 Reported Comments cxr 11/17 resolved infiltrates Impression . 1. Enhdp-gl-ixcbhbq hypercapnic and hypoxic respiratory failure secondary possible gram pos and gram negative pneumonia and septic shock. resolved 2. 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 3. Sqmrg-aw-xssekit renal failure. 4. Severe protein-calorie malnutrition. 5. Bilateral infiltrates consistent with pneumonia. resolve by CXR 6. Recent echo with normal ejection fraction. 7. Septic shock off pressors Plan . SPOKE WITH DR BLACK PT D/C TODAY TRILOGY FOR HOME LIGIA MOORE MD Dec 01, 2016 12:12
[2016-12-01 15:05] VITALS: BP 132/81
[2016-12-01 19:00] VITALS: BP 133/79
[2016-12-01 23:00] VITALS: BP 117/73
[2016-12-02 03:00] VITALS: BP 104/69
[2016-12-02 07:15] VITALS: BP 129/90
[2016-12-02] MEDS: IPRATRPIUM/ALBUTEROL 0.5/2.5MG 3 ML NEBU. NEB SCH ×4 (08:01→19:14)
[2016-12-02] MEDS: ENOXAPARIN 40 MG/0.4 ML DISP.SYRIN. SQ SCH (08:29)
--- NOTE | 2016-12-02 10:08 | PDOC ---
PULMONARY PROGRESS NOTES Subjective no soa Vitals Vital Signs Date Time Temp Pulse Resp B/P Pulse Ox O2 Delivery O2 Flow Rate FiO2 12/02/16 08:05 Nasal Cannula 2.0 12/02/16 07:15 98.2 115 22 129/90 98 98.2 General: Alert, No acute distress Lungs: Other (decrease bs) Cardiovascular: S1, S2 Abdomen: Soft, Non-tender Neuro Exam: Alert Extremities: No Edema Skin: Warm, Dry Medications Active Scripts Medications Dose Route/Sig Days Date Category Dose Instructions Morphine Sulfate 10 Mg/0.5 Ml Disp.syrin 5 Mg PO PRN Q3HRS PRN 11/11/16 Reported Duoneb 0.5-3(2.5) Mg/3 Ml (Albuterol/Ipratropium) 3 Ml Ampul.neb 3 Ml NEB PRN Q2HR PRN 11/11/16 Reported Prilosec (Omeprazole Magnesium) 10 Mg Suspdr.pkt 20 Mg PO DAILY 11/11/16 Reported Meloxicam 15 Mg Tablet 1 Tab PO DAILY 11/11/16 Reported Norvasc (Amlodipine Besylate) 5 Mg Tablet 1 Tab PO DAILY 11/11/16 Reported Miralax (Polyethylene Glycol 3350) 17 Gm Powd.pack 1 Packet PO DAILY PRN 11/11/16 Reported Symbicort 160-4.5 Mcg Inhaler (Budesonide/Formoterol Fumarate) 10.2 Gm Hfa.aer.ad 2 Puff IH BID 11/11/16 Reported Cardizem Tablet (Diltiazem Hcl) 30 Mg Tablet 300 Mg PO DAILY 11/11/16 Reported Spironolactone 25 Mg Tablet 1 Tab PO DAILY 11/11/16 Reported Prednisone 10 Mg Tablet 10 Mg PO UD 11/11/16 Reported Take 3 tablets by mouth twice a day for 3 days, then take 2 tablets by mouth twice a day for 3 days, then take 1 tablet by mouth twice a day for 3 days, then take 1 tablet by mouth daily x 3 days, then stop. Oxycodone Hcl 20 Mg Tablet 20 Mg PO PRN QID PRN 06/13/16 Reported Bisacodyl 5 Mg Tablet.dr 5 Mg PO DAILY06 06/13/16 Reported Clonidine Hcl 0.3 Mg Tablet 0.3 Mg PO TID 12/28/13 Reported Comments cxr 11/17 resolved infiltrates Impression . 1. Lpxlv-ld-kzwibtg hypercapnic and hypoxic respiratory failure secondary possible gram pos and gram negative pneumonia and septic shock. resolved 2. 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 3. Hjwei-mk-mrrdlvp renal failure. 4. Severe protein-calorie malnutrition. 5. Bilateral infiltrates consistent with pneumonia. resolve by CXR 6. Recent echo with normal ejection fraction. 7. s/p Septic shock Plan . CLINICALLY STABLE FOR D/C NEBS OXYGEN TRILOGY FOR HOME JOHN BAIRES MD Dec 02, 2016 10:08
[2016-12-02 11:00] VITALS: BP 114/71
[2016-12-02 15:00] VITALS: BP 128/74
--- NOTE | 2016-12-02 16:20 | PDOC ---
SUBJECTIVE Subjective He is looking good at using his triolgy machine and able to breathe very good at present time OBJECTIVE Objective Vital signs stable Vital Signs Vital Signs Date Time Temp Pulse Resp B/P Pulse Ox O2 Delivery O2 Flow Rate FiO2 12/02/16 15:00 98.4 112 18 128/74 96 BiPAP/CPAP 98.4 12/02/16 11:54 Nasal Cannula 2.0 12/02/16 11:00 98.3 117 114/71 90 Nasal Cannula 4.0 98.3 12/02/16 08:05 Nasal Cannula 2.0 12/02/16 08:00 Nasal Cannula 4.0 12/02/16 07:15 98.2 115 22 129/90 98 Nasal Cannula 4.0 98.2 12/02/16 03:00 97.6 105 20 104/69 96 BiPAP/CPAP 97.6 12/01/16 23:00 98.5 111 20 117/73 BiPAP/CPAP 98.5 12/01/16 21:00 4.0 12/01/16 20:08 Nasal Cannula 4.0 12/01/16 19:58 97 BiPAP/CPAP 4.0 12/01/16 19:57 97 Nasal Cannula 4.0 12/01/16 19:00 98.6 110 20 133/79 95 Room Air 98.6 I & O Intake and Output 12/02/16 07:00 Intake Total 500 ml Output Total 375 ml Balance 125 ml Intake Oral 500 ml Tube Feeding 0 ml Output Urine Total 375 ml # Voids 3 PHYSICAL EXAM Physical Exam No change in exam comparing to yesterday ASSESSMENT/PLAN Assessment/Plan Awaiting the jail placement patient is clinically stable for discharge he does need rehabilitation Problems: ERICH BLACK MD Dec 02, 2016 16:19
[2016-12-02 19:00] VITALS: BP 123/80
[2016-12-02 23:00] VITALS: BP 124/80
[2016-12-03 03:00] VITALS: BP 121/72
[2016-12-03] MEDS: ALBUTEROL SULFATE 2.5 MG/3 ML NEBU. NEB PRN (03:19)
[2016-12-03 07:00] VITALS: BP 120/84
[2016-12-03] MEDS: IPRATRPIUM/ALBUTEROL 0.5/2.5MG 3 ML NEBU. NEB SCH ×4 (07:50→20:02)
[2016-12-03] MEDS: ENOXAPARIN 40 MG/0.4 ML DISP.SYRIN. SQ SCH (09:40)
[2016-12-03 10:56] VITALS: BP 109/71
--- NOTE | 2016-12-03 14:35 | PDOC ---
PULMONARY PROGRESS NOTES Subjective no soa Vitals Vital Signs Date Time Temp Pulse Resp B/P Pulse Ox O2 Delivery O2 Flow Rate FiO2 12/03/16 12:47 98 Nasal Cannula 4.0 12/03/16 10:56 98.2 113 18 109/71 98.2 General: Alert, No acute distress Lungs: Other (decrease bs) Cardiovascular: S1, S2 Abdomen: Soft, Non-tender Neuro Exam: Alert Extremities: No Edema Skin: Warm, Dry Medications Active Scripts Medications Dose Route/Sig Days Date Category Dose Instructions Morphine Sulfate 10 Mg/0.5 Ml Disp.syrin 5 Mg PO PRN Q3HRS PRN 11/11/16 Reported Duoneb 0.5-3(2.5) Mg/3 Ml (Albuterol/Ipratropium) 3 Ml Ampul.neb 3 Ml NEB PRN Q2HR PRN 11/11/16 Reported Prilosec (Omeprazole Magnesium) 10 Mg Suspdr.pkt 20 Mg PO DAILY 11/11/16 Reported Meloxicam 15 Mg Tablet 1 Tab PO DAILY 11/11/16 Reported Norvasc (Amlodipine Besylate) 5 Mg Tablet 1 Tab PO DAILY 11/11/16 Reported Miralax (Polyethylene Glycol 3350) 17 Gm Powd.pack 1 Packet PO DAILY PRN 11/11/16 Reported Symbicort 160-4.5 Mcg Inhaler (Budesonide/Formoterol Fumarate) 10.2 Gm Hfa.aer.ad 2 Puff IH BID 11/11/16 Reported Cardizem Tablet (Diltiazem Hcl) 30 Mg Tablet 300 Mg PO DAILY 11/11/16 Reported Spironolactone 25 Mg Tablet 1 Tab PO DAILY 11/11/16 Reported Prednisone 10 Mg Tablet 10 Mg PO UD 11/11/16 Reported Take 3 tablets by mouth twice a day for 3 days, then take 2 tablets by mouth twice a day for 3 days, then take 1 tablet by mouth twice a day for 3 days, then take 1 tablet by mouth daily x 3 days, then stop. Oxycodone Hcl 20 Mg Tablet 20 Mg PO PRN QID PRN 06/13/16 Reported Bisacodyl 5 Mg Tablet.dr 5 Mg PO DAILY06 06/13/16 Reported Clonidine Hcl 0.3 Mg Tablet 0.3 Mg PO TID 12/28/13 Reported Comments cxr 11/17 resolved infiltrates Impression . 1. Corsg-dv-[id number] hypercapnic and hypoxic respiratory failure secondary possible gram pos and gram negative pneumonia and septic shock. resolved 2. 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 3. Pgabs-fd-mfzgbqf renal failure. 4. Severe protein-calorie malnutrition. 5. Bilateral infiltrates consistent with pneumonia. resolve by CXR 6. Recent echo with normal ejection fraction. 7. s/p Septic shock Plan . CLINICALLY STABLE FOR D/C NEBS OXYGEN TRILOGY FOR HOME AWAITING PLACEMENT D/W PCP WILL SEE JOHN KLINE MD Dec 03, 2016 14:35
[2016-12-03 15:00] VITALS: BP 131/65
--- NOTE | 2016-12-03 18:58 | PDOC ---
SUBJECTIVE Subjective He seems to be little tired today but has no new complaints OBJECTIVE Vital Signs Vital Signs Date Time Temp Pulse Resp B/P Pulse Ox O2 Delivery O2 Flow Rate FiO2 12/03/16 17:05 97 Nasal Cannula 4.0 12/03/16 15:00 98.1 119 22 131/65 97 Room Air 98.1 12/03/16 12:47 98 Nasal Cannula 4.0 12/03/16 10:56 98.2 113 18 109/71 93 Nasal Cannula 2.0 98.2 12/03/16 08:00 Nasal Cannula 4.0 12/03/16 07:50 99 Nasal Cannula 4.0 12/03/16 07:00 98.2 104 18 120/84 98 2.0 98.2 12/03/16 03:21 97 BiPAP/CPAP 4.0 12/03/16 03:00 97.9 109 18 121/72 97 BiPAP/CPAP 97.9 12/02/16 23:00 98.8 100 18 124/80 97 BiPAP/CPAP 98.8 12/02/16 21:00 4.0 12/02/16 19:50 Nasal Cannula 4.0 12/02/16 19:15 96 Nasal Cannula 4.0 12/02/16 19:00 98.7 126 18 123/80 Nasal Cannula 2.0 98.7 I & O Intake and Output 12/03/16 07:00 Intake Total 520 ml Output Total 475 ml Balance 45 ml Intake Oral 520 ml Output Urine Total 475 ml PHYSICAL EXAM Physical Exam Not much change in his exam ASSESSMENT/PLAN Assessment/Plan Patient is fairly stable, he is at risk for contacting hospital-acquired pneumonia with his respiratory status I'm very concerned about him being in the hospital we are still awaiting placement discussed with medical social worker and hopefully a [facility]iary units will be available soon Problems: ERICH BLACK MD Dec 03, 2016 18:58
[2016-12-03 19:00] VITALS: BP 125/73
[2016-12-03 23:00] VITALS: BP 119/74
[2016-12-04 03:00] VITALS: BP 134/81
[2016-12-04 07:00] VITALS: BP 128/91
[2016-12-04] MEDS: IPRATRPIUM/ALBUTEROL 0.5/2.5MG 3 ML NEBU. NEB SCH ×3 (07:39→15:23)
[2016-12-04] MEDS: ENOXAPARIN 40 MG/0.4 ML DISP.SYRIN. SQ SCH (08:56)
--- NOTE | 2016-12-04 09:13 | PDOC ---
OBJECTIVE Vital Signs Vital Signs Date Time Temp Pulse Resp B/P Pulse Ox O2 Delivery O2 Flow Rate FiO2 12/04/16 07:44 97 Nasal Cannula 4.0 12/04/16 07:00 98.8 112 22 128/91 96 BiPAP/CPAP 98.8 12/04/16 03:00 97.7 113 18 134/81 98 Nasal Cannula 2.0 97.7 12/03/16 23:00 96.8 110 18 119/74 100 Nasal Cannula 2.0 96.8 12/03/16 20:04 97 Nasal Cannula 4.0 12/03/16 19:00 97.9 119 18 125/73 99 Nasal Cannula 2.0 97.9 12/03/16 17:05 97 Nasal Cannula 4.0 12/03/16 15:00 98.1 119 22 131/65 97 Room Air 98.1 12/03/16 12:47 98 Nasal Cannula 4.0 12/03/16 10:56 98.2 113 18 109/71 93 Nasal Cannula 2.0 98.2 I & O Intake and Output 12/04/16 07:00 Intake Total 300 ml Output Total 400 ml Balance -100 ml Intake Oral 300 ml Output Urine Total 400 ml ERICH BLACK MD Dec 04, 2016 09:13
[2016-12-04 10:54] VITALS: BP 132/81
[2016-12-04 15:19] VITALS: BP 130/81
== END 2016-12-04 16:20 | DRG 870 ==
LOC: ER 08:32 → 1 WEST ICU 09:30 → 5 SOUTH 11-19 19:50
PROVIDERS: ADMIT Internal Medicine; ATTEND Internal Medicine
PROC: 02HV33Z Insertion of Infusion Device into Superior Vena Cava, Percutaneous Approach (ICD-10-PCS; principal; 2016-11-11)
PROC: 0BH17EZ Insertion of Endotracheal Airway into Trachea, Via Natural or Artificial Opening (ICD-10-PCS; 2016-11-11)
PROC: 5A1955Z Respiratory Ventilation, Greater than 96 Consecutive Hours (ICD-10-PCS; 2016-11-11)
PROC: 5A09557 Assistance with Respiratory Ventilation, Greater than 96 Consecutive Hours, Continuous Positive Airway Pressure (ICD-10-PCS; 2016-11-18)
DX: A41.9 Sepsis, unspecified organism (principal); R65.21 Severe sepsis with septic shock; E43 Unspecified severe protein-calorie malnutrition; J18.9 Pneumonia, unspecified organism; J96.21 Acute and chronic respiratory failure with hypoxia; J96.22 Acute and chronic respiratory failure with hypercapnia; J15.6 Pneumonia due to other Gram-negative bacteria; Z68.1 Body mass index [BMI] 19.9 or less, adult; Z66 Do not resuscitate; E87.2 Acidosis; N17.9 Acute kidney failure, unspecified; J44.0 Chronic obstructive pulmonary disease with (acute) lower respiratory infection; E87.5 Hyperkalemia; I12.9 Hypertensive chronic kidney disease with stage 1 through stage 4 chronic kidney disease, or unspecified chronic kidney disease; N18.9 Chronic kidney disease, unspecified; R13.12 Dysphagia, oropharyngeal phase; K59.00 Constipation, unspecified; Y95 Nosocomial condition; Z96.659 Presence of unspecified artificial knee joint; Z87.891 Personal history of nicotine dependence; Z90.79 Acquired absence of other genital organ(s); Z85.46 Personal history of malignant neoplasm of prostate; Z88.8 Allergy status to other drugs, medicaments and biological substances
CPT/HCPCS: 36415; 36556; 36569; 36600; 51702; 70450; 71010; 74000; 74230; 80048; 80053; 80076; 80202; 81001; 82140; 82805; 82947; 83605; 83735; 83880; 84443; 84484; 85007; 85027; 85610; 87040; 87641; 93005; 94002; 94003; 94250; 94640; 94660; 94760; 96365; 96368; 96375; J0330; J1650; J1720; J1815; J1956; J2250; J2543; J2704; J3010; J3370; J7030; J7042; J7050; J7620; S0028; 92526; 92610; 92611; 97001; 97530; 99291-25

== ENCOUNTER 2016-12-07 09:09 | Inpatient (IN) | payer MEDICARE, BC ==
[~2016-12-07] VITALS: Ht 188 cm; Wt 54.2 kg
[~2016-12-07 09:09] MED LIST changes: +AMLO5TAB4 PO; +DILT30TA26 PO; +IPRA3AMP NEB; +MORP10DI10 PO; +OMEP10SU PO; +POLY17PO5 PO; +PRED-220 PO; +SPIR25TA3 PO
[2016-12-07] MEDS ORDERED: IV NORMAL SALINE 500ML BAG 500 ML IV ONE ×2 (09:30→20:30)
[2016-12-07] MEDS ORDERED: IPRATRPIUM/ALBUTEROL 0.5/2.5MG 3 ML NEBU. NEB ONE (09:30)
[2016-12-07 09:44] LABS: BASO % 1 % (0-3); EOS % 0 % (0-3); HEMATOCRIT 29.9 % (39.0-53.0); HEMOGLOBIN 9.7 g/dL (13.0-17.5); LYMPH # 2.1 x10^3/uL (1.0-4.8); LYMPH % 23 % (24-48); MEAN CORPUSCULAR HEMOGLOBIN 29 pg (25-35); MEAN CORPUSCULAR HGB CONC 32 g/dL (31-37); MEAN CORPUSCULAR VOLUME 90 fL (79-100); MONO % 11 % (0-9); NEUT % 65 % (31-73); PLATELET COUNT 638 x10^3/uL (140-400); RED BLOOD COUNT 3.31 x10^6/uL (4.30-5.70); RED CELL DISTRIBUTION WIDTH 14.1 % (11.5-14.5); WHITE BLOOD COUNT 8.9 x10^3/uL (4.0-11.0)
--- NOTE | 2016-12-07 09:47 | RAD ---
Exam: AP portable chest. History: Chest pain. Comparison: 11/17/2016. Findings: The heart and mediastinal structures are within normal limits for size. Lungs are without infiltrate. No pneumothorax or pleural effusion is appreciated. Endotracheal tube and PICC line has been removed. Aortic atherosclerosis is seen. Emphysematous changes of lungs are again noted. Impression: 1. No acute cardiopulmonary process.
[2016-12-07 10:00] LABS: CALCIUM 9.1 mg/dL (8.5-10.1); CREATININE 0.5 mg/dL (0.7-1.3); GFR 197.2; POTASSIUM 3.7 mmol/L (3.5-5.1)
[2016-12-07 10:06] LABS: ALBUMIN 2.3 g/dL (3.4-5.0); DIRECT BILIRUBIN 0.1 mg/dL (0.0-0.2); TOTAL BILIRUBIN 0.6 mg/dL (0.2-1.0); TOTAL PROTEIN 6.2 g/dL (6.4-8.2)
[2016-12-07] MEDS ORDERED: ONDANSETRON PF 4 MG/2 ML VIAL. IV PRN (10:45)
[2016-12-07] MEDS ORDERED: MORPHINE SULFATE 2 MG/ML DISP.SYRIN. IV PRN (10:45)
[2016-12-07 10:58] LABS: HCO3 ABG 42 mmol/L (21-28); PH ABG 7.45 (7.35-7.45); PO2 ABG 359 mmHg (65-108); SAT O2 ABG 99 % (92-99)
[2016-12-07 11:03] LABS: FIO2 ABG 100; PCO2 ABG 63 mmHg (35-46)
[2016-12-07 11:33] LABS: % BASOS 1 % (0-3); % EOS 1 % (0-5)
[2016-12-07 11:34] LABS: PLT ESTIMATE INCREASED (ADEQUATE)
[2016-12-07 11:35] LABS: POLYCHROMASIA SLIGHT
--- NOTE | 2016-12-07 11:58 | PHYS DOC ---
Past Medical History Past Medical History: COPD, Hypertension, Renal Disease, Other Additional Past Medical Histor: generalized weakness, malnurished Past Surgical History: Knee Replacement, Other Additional Past Surgical Histo: PROSTATE, WRIST Alcohol Use: Occasionally Drug Use: None Adult General Chief Complaint Chief Complaint: SHORTNESS OF BREATH HPI HPI 71-year-old male presenting to the emergency department today by Betty JOYA with shortness of breath. He was recently hospitalized and just recently discharged from our hospital after being treated for septic shock and pneumonia. Upon arrival the patient is saturating well on BiPAP placed by paramedics. There were distant reports that the patient may have "not been connected to his ventilator". Also reports, "he did not have his mask on." Obviously, I am unable to verify any of this information. The patient reports his shortness of breath started approximately one day ago. Location lungs. Duration constant. Improved with oxygen. Review of Systems Review of Systems ROS negative for chest pain abdominal pain nausea vomiting. All other review of systems is negative unless otherwise noted in history of present illness. Current Medications Current Medications Current Medications Medications (Trade) Dose Ordered Sig/Pierre Start Time Stop Time Status Last Admin Dose Admin Albuterol/ Ipratropium 3 ml 3 ml 1X ONCE 12/07/16 09:30 12/07/16 09:31 DC 12/07/16 09:50 3 ML Sodium Chloride (Iv Sodium Chloride 0.9% 500ml Bag) 500 ml @ 500 mls/hr 1X ONCE 12/07/16 09:30 12/07/16 10:29 DC 12/07/16 09:39 500 MLS/HR Allergies Allergies Allergies Coded Allergies Type Severity Reaction Last Updated Verified lisinopril Allergy Intermediate 06/11/16 Yes Physical Exam Physical Exam Constitutional: Well developed, well nourished, patient is mildly tachypneic with increased work of breathing placed on BiPAP in the emergency department. HENT: Normocephalic, atraumatic, bilateral external ears normal, oropharynx moist, no oral exudates, nose normal. [] Eyes: PERRLA, EOMI, conjunctiva normal, no discharge. [] Neck: Normal range of motion, no tenderness, supple, no stridor. Cardiovascular:Heart rate regular rhythm, no murmur [] Lungs & Thorax: Bilateral breath sounds clear to auscultation Abdomen: Bowel sounds normal, soft, no tenderness, no masses, no pulsatile masses. Skin: Warm, dry, no erythema, no rash. [] Back: No tenderness, no CVA tenderness. Extremities: No tenderness, no cyanosis, no clubbing, ROM intact, no edema. Neurologic: Alert and oriented X 3, normal motor function, normal sensory function, no focal deficits noted. [] Psychologic: Affect normal, judgement normal, mood normal. [] Current Patient Data Vital Signs Vital Signs Date Time Temp Pulse Resp B/P Pulse Ox O2 Delivery O2 Flow Rate FiO2 12/07/16 09:50 94 Venturi Mask 12/07/16 09:30 105 21 126/78 12/07/16 09:17 98.5 98.5 Lab Values Laboratory Tests Test 12/07/16 09:20 12/07/16 09:33 O2 Saturation 99% (92-99) Arterial Blood pH 7.45 (7.35-7.45) Arterial Blood pCO2 at Patient Temp 63mmHg (35-46) *H Arterial Blood pO2 at Patient Temp 359mmHg (65-108) H Arterial Blood HCO3 42mmol/L (21-28) H Arterial Blood Base Excess 16mmol/L (-3-3) H FiO2 100 White Blood Count 8.9x10^3/uL (4.0-11.0) Red Blood Count 3.31x10^6/uL (4.30-5.70) L Hemoglobin 9.7g/dL (13.0-17.5) L Hematocrit 29.9% (39.0-53.0) L Mean Corpuscular Volume 90fL (79-100) Mean Corpuscular Hemoglobin 29pg (25-35) Mean Corpuscular Hemoglobin Concent 32g/dL (31-37) Red Cell Distribution Width 14.1% (11.5-14.5) Platelet Count 638x10^3/uL (140-400) #H Neutrophils (%) (Auto) 65% (31-73) Lymphocytes (%) (Auto) 23% (24-48) L Monocytes (%) (Auto) 11% (0-9) H Eosinophils (%) (Auto) 0% (0-3) Basophils (%) (Auto) 1% (0-3) Neutrophils # (Auto) 5.8x10^3uL (1.8-7.7) Lymphocytes # (Auto) 2.1x10^3/uL (1.0-4.8) Monocytes # (Auto) 1.0x10^3/uL (0.0-1.1) Eosinophils # (Auto) 0.0x10^3/uL (0.0-0.7) Basophils # (Auto) 0.0x10^3/uL (0.0-0.2) Segmented Neutrophils % 50% (35-66) Band Neutrophils % 9% (0-9) Lymphocytes % 30% (24-48) Atypical Lymphocytes % (Manual) 1% (0-0) H Monocytes % 8% (0-10) Eosinophils % 1% (0-5) Basophils % 1% (0-3) Platelet Estimate Increased (ADEQUATE) Polychromasia Slight Sodium Level 140mmol/L (136-145) Potassium Level 3.7mmol/L (3.5-5.1) Chloride Level 95mmol/L (98-107) L Carbon Dioxide Level 45mmol/L (21-32) H Anion Gap 0 (6-14) L Blood Urea Nitrogen 7mg/dL (8-26) L Creatinine 0.5mg/dL (0.7-1.3) L Estimated GFR (Cockcroft-Gault) 197.2 Glucose Level 82mg/dL (70-99) Lactic Acid Level 0.8mmol/L (0.4-2.0) Calcium Level 9.1mg/dL (8.5-10.1) Total Bilirubin 0.6mg/dL (0.2-1.0) Direct Bilirubin 0.1mg/dL (0.0-0.2) Aspartate Amino Transferase (AST) 14U/L (15-37) L Alanine Aminotransferase (ALT) 21U/L (16-63) Alkaline Phosphatase 27U/L (46-116) L Troponin I Quantitative 0.019ng/mL (0.000-0.055) KX-Dqf-N-Type Natriuretic Peptide 199pg/mL (0-124) H Total Protein 6.2g/dL (6.4-8.2) L Albumin 2.3g/dL (3.4-5.0) L Lipase 130U/L (73-393) Laboratory Tests 12/07/16 09:33 Laboratory Tests 12/07/16 09:33 EKG EKG [] EKG shows sinus tachycardia. Slater is within normal limits. ST segments are congruent. Intervals are within normal limits. Radiology/Procedures Radiology/Procedures [] Chest x-ray shows no acute pathology. Course & Med Decision Making Course & Med Decision Making Pertinent Labs and Imaging studies reviewed. (See chart for details) 71-year-old male presented to the emergency department with worsening shortness of breath. On evaluation the patient had increased work of breathing. ABG obtained which showed hypercarbia. CPAP applied. Otherwise physical exam unremarkable. Patient was quite tachycardic in the emergency department which likely was secondary to respiratory distress. This improved after CPAP administration. Chest x-ray and EKG unremarkable. Otherwise blood work was obtained which showed mild anemia. Chemistry panel showed hypoalbuminemia. Otherwise elevation in CO2 likely from CO2 retention. Troponin within the reference range of normal. Lactic acid within normal limits. The patient was then admitted to our hospital for further evaluation monitoring workup and care. Dragon Disclaimer Dragon Disclaimer This electronic medical record was generated, in whole or in part, using a voice recognition dictation system. Departure Departure Impression: Primary Impression: Acute and chronic respiratory failure ([id number]) Additional Impression: Respiratory failure Disposition: ADMITTED INPATIENT Admitting Physician: Sebastien Harrison Condition: STABLE Referrals: LEISA HARRISON MD (PCP) Problem Qualifiers ZANE RUGIGERO MD Dec 07, 2016 11:58
[2016-12-07 11:59] VITALS: BP 149/85
[2016-12-07] MEDS ORDERED: IPRATRPIUM/ALBUTEROL 0.5/2.5MG 3 ML NEBU. NEB SCH (12:00)
--- NOTE | 2016-12-07 12:04 | EKG ---
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
[2016-12-07] MEDS ORDERED: MAGN2400 PO (14:41)
[2016-12-07 14:58] VITALS: BP 134/72
[2016-12-07] MEDS ORDERED: POLYETHYLENE GLYCOL 3350 17 GM PACKET. PO PRN (16:30)
[2016-12-07] MEDS ORDERED: IPRATRPIUM/ALBUTEROL 0.5/2.5MG 3 ML NEBU. NEB PRN (16:30)
[2016-12-07] MEDS ORDERED: MAGNESIUM HYDROXIDE 2,400 MG/30 ML ORAL.SUSP. PO PRN (16:45)
[2016-12-07] MEDS ORDERED: ALBUTEROL SULFATE 2.5 MG/3 ML NEBU. NEB PRN (16:45)
[2016-12-07] MEDS ORDERED: OXYCODONE IR 5 MG TABLET. PO PRN (16:45)
[2016-12-07] MEDS: BUDESONIDE 0.5 MG/2 ML NEBU NEB SCH (19:36)
[2016-12-07] MEDS: ALBUTEROL SULFATE 2.5 MG/3 ML NEBU. NEB SCH (19:36)
[2016-12-07 19:57] VITALS: BP 126/75
[2016-12-07] MEDS ORDERED: IV NORMAL SALINE 1000ML BAG 1,000 ML IV SCH (20:30)
[2016-12-07] MEDS ORDERED: TEMAZEPAM 15 MG CAPSULE PO PRN (20:30)
[2016-12-07] MEDS: CLONIDINE HCL 0.3 MG TABLET PO SCH (20:56)
[2016-12-07] MEDS ORDERED: NON FORMULARY ITEM (Budesonide/Formoterol Fumarate (Symbicort 160-4.5 Mcg Inhaler) 2 PUFF) IH SCH (21:00)
[2016-12-07 23:33] VITALS: BP 143/75
[2016-12-08 03:34] VITALS: BP 115/62
[2016-12-08 05:06] LABS: BASO % 0 % (0-3); EOS % 1 % (0-3); HEMATOCRIT 27.5 % (39.0-53.0); HEMOGLOBIN 8.9 g/dL (13.0-17.5); LYMPH # 2.4 x10^3/uL (1.0-4.8); LYMPH % 25 % (24-48); MEAN CORPUSCULAR HEMOGLOBIN 29 pg (25-35); MEAN CORPUSCULAR HGB CONC 32 g/dL (31-37); MEAN CORPUSCULAR VOLUME 91 fL (79-100); MONO % 12 % (0-9); NEUT % 62 % (31-73); PLATELET COUNT 604 x10^3/uL (140-400); RED BLOOD COUNT 3.04 x10^6/uL (4.30-5.70); RED CELL DISTRIBUTION WIDTH 13.9 % (11.5-14.5); WHITE BLOOD COUNT 9.3 x10^3/uL (4.0-11.0)
[2016-12-08 05:33] LABS: CALCIUM 8.7 mg/dL (8.5-10.1); CREATININE 0.5 mg/dL (0.7-1.3); GFR 197.2; POTASSIUM 3.9 mmol/L (3.5-5.1)
[2016-12-08] MEDS ORDERED: BISACODYL 5 MG TABLET.DR. PO SCH (06:00)
[2016-12-08] MEDS: ALBUTEROL SULFATE 2.5 MG/3 ML NEBU. NEB SCH ×4 (07:42→20:46)
[2016-12-08] MEDS: BUDESONIDE 0.5 MG/2 ML NEBU NEB SCH ×2 (07:42→20:46)
--- NOTE | 2016-12-08 07:44 | PDOC ---
Provider Note Provider Note [id number] acute on chronic resp fail mild ae of copd o2 bronchodilator ics TAVON PLATT MD Dec 08, 2016 07:44
[2016-12-08 07:45] VITALS: BP 142/84
--- NOTE | 2016-12-08 08:12 | CONS ---
DATE OF CONSULTATION: 12/08/2016 REASON FOR CONSULTATION: I was asked to see this 71-year-old gentleman for [id number] respiratory failure, shortness of breath, cough. HISTORY OF PRESENT ILLNESS: He does have history of 100-pack year smoking. He stopped smoking about 5 years ago. He is on oxygen 4 liters per minute via nasal cannula continuously. He also has been on BiPAP at night for the past 5 years. He thinks that this is because of his respiratory failure. He was at [facility] a few weeks ago, was transferred to rehab center for deconditioning. Apparently while he was on BiPAP, he had hypoxemia. It is not clear if his BiPAP was on. He is on 4 liters of oxygen. He does have shortness of breath. He has cough. He has wheezing. He has nasal congestion, but denies gastroesophageal reflux symptoms or chest pain. PAST MEDICAL HISTORY: COPD, chronic respiratory failure, hypertension, renal disease, and debility. ALLERGIES: LISINOPRIL. MEDICATIONS: Currently he is on albuterol q.i.d., Dulcolax, clonidine, budesonide, magnesium, morphine. SOCIAL HISTORY: History of 100-pack year smoking, stopped smoking 5 years ago. FAMILY HISTORY: There is no history of lung disease. REVIEW OF SYSTEMS: As mentioned as above. He has not been able to walk. He has been weak. Other systems are otherwise negative. PHYSICAL EXAMINATION: GENERAL: He is a chronic ill appearing gentleman. VITAL SIGNS: His O2 saturation on 4 liters of oxygen is 98%, respiratory rate 16, heart rate 100, blood pressure 142/88 /62, temperature 97.5. HEENT: Normocephalic, atraumatic. Pupils are equal, round, reactive to light. Throat is clear. Nose is clear. NECK: There is no JVD, lymphadenopathy, or thyromegaly. CARDIOVASCULAR: Regular rate and rhythm. Distant heart sounds. Chest expansion is normal. LUNGS: There are bibasilar crackles. A few end-expiratory wheezing. ABDOMEN: Soft. Bowel sounds are good. There is no mass. EXTREMITIES: There is no edema. LYMPHATICS: There is no lymphadenopathy. SKIN: Chronic changes. NEUROLOGIC: Alert and oriented x 3. LABORATORY DATA: I reviewed the following lab data: Chest x-ray does not show infiltrate. Sodium 141, potassium 3.9, chloride 98, CO2 is 43, BUN 7, creatinine 0.5, glucose 96. WBC 9.3, hemoglobin 8.9, platelets 604. IMPRESSION: 1. Suncl-or-rjarjkh respiratory failure secondary to mild acute exacerbation of chronic obstructive pulmonary disease. 2. Acute exacerbation of chronic obstructive pulmonary disease. 3. Hypertension. 4. Debility. 5. Ex-smoker. 6. Anemia. PLAN AND RECOMMENDATIONS: 1. Titrate FiO2 to keep O2 saturation 92%. 2. Bronchodilator. 3. Inhaled corticosteroid. 4. Lovenox for DVT prophylaxis. 5. Pepcid for stress ulcer prophylaxis. 6. Monitor respiratory status very closely. 7. Use BiPAP at bedtime. 8. PT, OT. 9. The findings and recommendations were discussed with the patient and RN. I have answered all of the patient's questions. Thank you very much for allowing me to participate in the care of this very nice gentleman. TAVON PLATT M.D. DR: Alissa JOB#: [id number] / [id number] EAN
[2016-12-08] MEDS: CLONIDINE HCL 0.3 MG TABLET PO SCH ×3 (08:46→19:31)
[2016-12-08 11:28] VITALS: BP 100/58
--- NOTE | 2016-12-08 12:19 | PDOC ---
GENERAL General: see dictated H&P. Problems: VITAL SIGNS Vital Signs: Vital Signs Date Time Temp Pulse Resp B/P Pulse Ox O2 Delivery O2 Flow Rate FiO2 12/08/16 11:43 100 Nasal Cannula 3.0 12/08/16 11:28 98.0 107 17 100/58 98.0 I & O I & O Intake and Output 12/08/16 07:00 Intake Total 1220 ml Output Total 1000 ml Balance 220 ml Intake Oral 720 ml IV Total 500 ml Output Urine Total 1000 ml # Voids 1 # Bowel Movements 1 ALLERGIES Allergies: Allergies Coded Allergies Type Severity Reaction Last Updated Verified lisinopril Allergy Intermediate 06/11/16 Yes MEDS Medications: Current Medications Medications (Trade) Dose Ordered Sig/Pierre Start Time Stop Time Status Last Admin Dose Admin Albuterol Sulfate (Ventolin Neb Soln) 2.5 mg PRN Q2HRS PRN 12/07/16 16:45 Albuterol/ Ipratropium (Duoneb) 3 ml PRN Q2HR PRN 12/07/16 16:30 12/07/16 16:34 DC Albuterol/ Ipratropium 3 ml 3 ml 1X ONCE 12/07/16 09:30 12/07/16 09:31 DC 12/07/16 09:50 3 ML Bisacodyl (Dulcolax Tab) 5 mg DAILY06 12/08/16 06:00 12/08/16 05:56 5 MG Budesonide (Pulmicort) 0.5 mg RTBID 12/07/16 20:00 12/08/16 07:42 0.5 MG Clonidine HCl (Catapres) 0.3 mg TID 12/07/16 21:00 12/08/16 08:46 0.3 MG Magnesium Hydroxide (Milk Of Magnesia) 2,400 mg PRN DAILY PRN 12/07/16 16:45 Morphine Sulfate 2 mg PRN Q2HR PRN 12/07/16 10:45 12/08/16 10:44 DC Non-Formulary Medication 2 puff BID 12/07/16 21:00 UNV Ondansetron HCl (Zofran) 4 mg PRN Q8HRS PRN 12/07/16 10:45 12/08/16 10:44 DC Oxycodone HCl (Roxicodone) 20 mg PRN Q6HRS PRN 12/07/16 16:45 Polyethylene Glycol (miraLAX PACKET) 17 gm PRN DAILY PRN 12/07/16 16:30 Sodium Chloride (Iv Sodium Chloride 0.9% 500ml Bag) 500 ml @ 500 mls/hr 1X ONCE 12/07/16 09:30 12/07/16 10:29 DC 12/07/16 09:39 500 MLS/HR Sodium Chloride (Iv Sodium Chloride 0.9% 1000ml Bag) 1,000 ml @ 80 mls/hr [id number] 12/07/16 20:30 UNV Temazepam 15 mg 15 mg PRN QHS PRN 12/07/16 20:30 12/07/16 20:38 DC LAB Lab: Laboratory Tests Test 12/07/16 21:08 12/08/16 04:30 Glucose (Fingerstick) 137mg/dL (70-99) White Blood Count 9.3x10^3/uL (4.0-11.0) Red Blood Count 3.04x10^6/uL (4.30-5.70) Hemoglobin 8.9g/dL (13.0-17.5) Hematocrit 27.5% (39.0-53.0) Mean Corpuscular Volume 91fL (79-100) Mean Corpuscular Hemoglobin 29pg (25-35) Mean Corpuscular Hemoglobin Concent 32g/dL (31-37) Red Cell Distribution Width 13.9% (11.5-14.5) Platelet Count 604x10^3/uL (140-400) Neutrophils (%) (Auto) 62% (31-73) Lymphocytes (%) (Auto) 25% (24-48) Monocytes (%) (Auto) 12% (0-9) Eosinophils (%) (Auto) 1% (0-3) Basophils (%) (Auto) 0% (0-3) Neutrophils # (Auto) 5.7x10^3uL (1.8-7.7) Lymphocytes # (Auto) 2.4x10^3/uL (1.0-4.8) Monocytes # (Auto) 1.1x10^3/uL (0.0-1.1) Eosinophils # (Auto) 0.1x10^3/uL (0.0-0.7) Basophils # (Auto) 0.0x10^3/uL (0.0-0.2) Sodium Level 141mmol/L (136-145) Potassium Level 3.9mmol/L (3.5-5.1) Chloride Level 98mmol/L (98-107) Carbon Dioxide Level 43mmol/L (21-32) Anion Gap 0 (6-14) Blood Urea Nitrogen 7mg/dL (8-26) Creatinine 0.5mg/dL (0.7-1.3) Estimated GFR (Cockcroft-Gault) 197.2 Glucose Level 96mg/dL (70-99) Calcium Level 8.7mg/dL (8.5-10.1) VIOLET MORTON MD Dec 08, 2016 12:19
[2016-12-08] MEDS: PANTOPRAZOLE 40 MG TABLET. PO SCH (14:20)
[2016-12-08 15:49] VITALS: BP 110/61
[2016-12-08 19:11] VITALS: BP 120/64
--- NOTE | 2016-12-08 21:46 | HP ---
ADMIT DATE: CHIEF COMPLAINT AND HISTORY OF PRESENT ILLNESS: This 71-year-old black male who is known to me from prior hospitalization, the patient of Dr. Irizarry, presented to the Emergency Room on the day of admission with shortness of breath. He had been recently hospitalized for respiratory failure and septic shock along with pneumonia. He was felt to be in acute on top of chronic respiratory failure with ____ exacerbation of COPD and was admitted for the same. PAST MEDICAL HISTORY: Remarkable for end-stage COPD, hypertension and chronic kidney disease, malnourishment. PAST SURGICAL HISTORY: Remarkable for prior knee replacement, wrist fracture, prostate surgery. SOCIAL HISTORY: He has been a smoker, drinks alcohol occasionally, does not use drugs. FAMILY HISTORY: Noncontributory. MEDICATIONS: Brought with the patient, listed on the computer and have been addressed. ALLERGIES: ALLERGIC TO LISINOPRIL. REVIEW OF SYSTEMS: Remarkable for that of increased shortness of breath along with little bit of cough. PHYSICAL EXAMINATION: GENERAL: He is a well-developed, well nourished slender black male in no acute distress at the time of my examination. VITAL SIGNS: Stable. He is afebrile. HEENT: Unremarkable. NECK: Supple without adenopathy or thyromegaly. CHEST: Reveals decreased breath sounds, but clear. HEART: Regular rate and rhythm without S3, S4, murmur. ABDOMEN: Soft, nontender, without hepatosplenomegaly or mass. EXTREMITIES: Without cyanosis, clubbing or edema. NEUROLOGIC: Intact. IMPRESSION: Acute on chronic respiratory failure due probable exacerbation of COPD in a patient with other problems listed above. PLAN: The patient has been admitted, Pulmonary has been consulted and the patient will be monitored, managed and treated appropriately. VIOLET MORTON MD DR: CARLIE/sunny JOB#: [id number] / [id number] Violet Cox M.D.
[2016-12-08 22:08] VITALS: BP 122/66
[2016-12-09 03:33] VITALS: BP 104/56
--- NOTE | 2016-12-09 07:13 | ACF ---
Admission Forms Criteria RESPIRATORY FAILURE [facility] Clinical Indications for Admission to Inpatient Care (Place 'X' for any and all applicable criteria): Hospital admission is needed for appropriate care of the patient because of acute respiratory failure or insufficiency as indicated by ANY ONE of the following(1)(2)(3)(4)(5)(6)(7)(8): [X]I. Mechanical ventilation needed (acute invasive or noninvasive) [ ]II. Severe ventilation deficit as indicated by ANY ONE of the following (9) [ ]a) Respiratory acidosis (pH less than 7.32 and partial pressure of carbon dioxide greater than 40 mm Hg (5.3 kPa)) [ ]b) Partial pressure of carbon dioxide greater than 44 mm Hg (5.9 kPa ) (new) [ ]c) Airflow measurements less than 25% of predicted (eg, peak expiratory flow rate less than 100 L/minute) [ ]d) Forced vital capacity less than 15 mL/kg of ideal body weight, or 50% decrease in vital capacity from baseline [ ]III. Noncardiac pulmonary edema not resolving with rapid emergency treatment (8) [ ]IV. Severe respiratory distress as indicated by ANY ONE of the following: [ ]a) Severe tachypnea (respiratory rate greater than 30, greater than 45 for 6-month-old, greater than 60 for ) [ ]b) Severe hypoxemia (partial pressure of oxygen less than 50 mm Hg ( 6.7 kPa) on greater than 50% oxygen or partial pressure of oxygen to FIO2 ratio less than 200) [ ]c) Mental status deterioration from respiratory disease [ ]V. Airway obstruction or inadequate protection [A](10)(11) The original [employer] content created by [employer] has been revised. The portions of the content which have been revised are identified through the use of italic text or in bold, and [employer] has neither reviewed nor approved the modified material. All other unmodified content is copyright [employer] Please see references footnoted in the original [employer] edition 2016 Admission Criteria Met?: Yes DEDRA KAUR Dec 09, 2016 07:13
[2016-12-09] MEDS: BUDESONIDE 0.5 MG/2 ML NEBU NEB SCH (07:17)
[2016-12-09] MEDS: ALBUTEROL SULFATE 2.5 MG/3 ML NEBU. NEB SCH ×2 (07:17→12:29)
[2016-12-09 07:50] VITALS: BP 99/55
[2016-12-09 09:00] VITALS: BP 100/50
[2016-12-09] MEDS ORDERED: BISACODYL 5 MG TABLET.DR. PO SCH (09:00)
[2016-12-09] MEDS: CLONIDINE HCL 0.3 MG TABLET PO SCH (09:00)
[2016-12-09] MEDS: PANTOPRAZOLE 40 MG TABLET. PO SCH (09:19)
--- NOTE | 2016-12-09 11:27 | PDOC ---
OBJECTIVE Vital Signs Vital Signs Date Time Temp Pulse Resp B/P Pulse Ox O2 Delivery O2 Flow Rate FiO2 12/09/16 09:00 86 100/50 12/09/16 08:07 Nasal Cannula 4.0 12/09/16 07:50 97.2 92 18 99/55 93 BiPAP/CPAP 97.2 12/09/16 07:17 97 BiPAP/CPAP 3.0 12/09/16 03:33 97.5 96 18 104/56 98 BiPAP/CPAP 5.0 97.5 12/08/16 22:08 97.6 111 16 122/66 97 BiPAP/CPAP 3.5 97.6 12/08/16 20:49 94 Nasal Cannula 3.0 12/08/16 20:48 94 Nasal Cannula 3.0 12/08/16 20:07 Nasal Cannula 4.0 12/08/16 19:31 104 120/64 12/08/16 19:11 98.0 104 16 120/64 98 Room Air 3.0 98.0 12/08/16 16:09 97 Nasal Cannula 3.0 12/08/16 15:49 98.2 123 110/61 100 Nasal Cannula 3.0 98.2 12/08/16 14:22 105 120/61 12/08/16 11:43 100 Nasal Cannula 3.0 12/08/16 11:28 98.0 107 17 100/58 100 Nasal Cannula 4.0 98.0 I & O Intake and Output 12/09/16 09:00 Intake Total 350 ml Output Total 150 ml Balance 200 ml Intake Oral 350 ml Output Urine Total 150 ml # Voids 4 ERICH BLACK MD Dec 09, 2016 11:27
[2016-12-09] MEDS ORDERED: FLUTICASONE 50MCG/NASAL SPRAY 16GM BOTTLE. NS PRN (11:45)
--- NOTE | 2016-12-09 11:48 | PDOC ---
PROGRESS NOTES Subjective Subjective Pt awake and pleasant in conversation. States he becomes very anxious when Trilogy removed. RN states O2 maintains greater than 90% on 3L of O2. Pt states he is eating and drinking well with good output. Objective Objective Pt awake and alert. NAD. VSS. Pt on Trilogy upon entering room, RN removed and placed pt on 3L of O2 per NC. Pt very anxious with change, however O2 sats remain greater than 90%. Resp unlabored. Lungs diminished, but CTA bilat. Vital Signs Date Time Temp Pulse Resp B/P Pulse Ox O2 Delivery O2 Flow Rate FiO2 12/09/16 09:00 86 100/50 12/09/16 08:07 Nasal Cannula 4.0 12/09/16 07:50 97.2 18 93 97.2 Intake and Output 12/09/16 09:00 Intake Total 350 ml Output Total 150 ml Balance 200 ml Intake Oral 350 ml Output Urine Total 150 ml # Voids 4 Assessment Assessment Problems Medical Problems: (1) Acute and chronic respiratory failure ([id number]) Status: Acute (2) Hypercapnic respiratory failure Status: Acute (3) Respiratory failure Status: Acute Plan Plan of Care 1. Acute on chronic resp failure -Pt on Trilogy and O2 per NC at home for supplemental O2 needs -Pulmonology consulting -okay for pt to Dc home today with HH -Xanax 0.25mg, 1 tablet tid prn anxiety Pt to return to home today with HH. Resume previous home medications. Continue HH for RN/PT/OT/RT services. Activity as tolerated. Diet regular. F/u with PCP in 1 week. Comment Review of Relevant I have reviewed the following items edwin (where applicable) has been applied. Labs Laboratory Tests Test 12/07/16 21:08 12/08/16 04:30 Glucose (Fingerstick) 137mg/dL (70-99) White Blood Count 9.3x10^3/uL (4.0-11.0) Red Blood Count 3.04x10^6/uL (4.30-5.70) Hemoglobin 8.9g/dL (13.0-17.5) Hematocrit 27.5% (39.0-53.0) Mean Corpuscular Volume 91fL (79-100) Mean Corpuscular Hemoglobin 29pg (25-35) Mean Corpuscular Hemoglobin Concent 32g/dL (31-37) Red Cell Distribution Width 13.9% (11.5-14.5) Platelet Count 604x10^3/uL (140-400) Neutrophils (%) (Auto) 62% (31-73) Lymphocytes (%) (Auto) 25% (24-48) Monocytes (%) (Auto) 12% (0-9) Eosinophils (%) (Auto) 1% (0-3) Basophils (%) (Auto) 0% (0-3) Neutrophils # (Auto) 5.7x10^3uL (1.8-7.7) Lymphocytes # (Auto) 2.4x10^3/uL (1.0-4.8) Monocytes # (Auto) 1.1x10^3/uL (0.0-1.1) Eosinophils # (Auto) 0.1x10^3/uL (0.0-0.7) Basophils # (Auto) 0.0x10^3/uL (0.0-0.2) Sodium Level 141mmol/L (136-145) Potassium Level 3.9mmol/L (3.5-5.1) Chloride Level 98mmol/L (98-107) Carbon Dioxide Level 43mmol/L (21-32) Anion Gap 0 (6-14) Blood Urea Nitrogen 7mg/dL (8-26) Creatinine 0.5mg/dL (0.7-1.3) Estimated GFR (Cockcroft-Gault) 197.2 Glucose Level 96mg/dL (70-99) Calcium Level 8.7mg/dL (8.5-10.1) Medications Current Medications Albuterol/ Ipratropium 3 ml 3 ml 1X ONCE NEB Last administered on 12/07/16 09 :50; Start 12/07/16 at 09:30; Stop 12/07/16 at 09:31; Status DC Sodium Chloride (Iv Sodium Chloride 0.9% 500ml Bag) 500 ml @ 500 mls/hr 1X ONCE IV Last administered on 12/07/16 09:39; Start 12/07/16 at 09:30; Stop at 10:29; Status DC Ondansetron HCl (Zofran) 4 mg PRN Q8HRS PRN IV NAUSEA/VOMITING; Start 12/07/16 at 10:45; Stop 12/08/16 at 10:44; Status DC Morphine Sulfate 2 mg PRN Q2HR PRN IV PAIN; Start 12/07/16 at 10:45; Stop 12/08 at 10:44; Status DC Albuterol/ Ipratropium (Duoneb) 3 ml RTQID NEB Last administered on 12/07/16 16:18; Start 12/07/16 at 12:00; Stop 12/07/16 at 16:35; Status DC Bisacodyl (Dulcolax Tab) 5 mg DAILY06 PO Last administered on 12/08/16 05:56; Start 12/08/16 at 06:00; Stop 12/08/16 at 20:06; Status DC Clonidine HCl (Catapres) 0.3 mg TID PO Last administered on 12/08/16 19:31; Start 12/07/16 at 21:00 Albuterol/ Ipratropium (Duoneb) 3 ml PRN Q2HR PRN NEB SHORTNESS OF BREATH; Start 12/07/16 at 16:30; Stop 12/07/16 at 16:34; Status DC Polyethylene Glycol (miraLAX PACKET) 17 gm PRN DAILY PRN PO CONSTIPATION; Start 12/07/16 at 16:30 Non-Formulary Medication 2 puff BID IH ; Start 12/07/16 at 21:00; Status UNV Magnesium Hydroxide (Milk Of Magnesia) 2,400 mg PRN DAILY PRN PO CONSTIPATION; Start 12/07/16 at 16:45 Oxycodone HCl (Roxicodone) 20 mg PRN Q6HRS PRN PO PAIN; Start 12/07/16 at 16:45 Albuterol Sulfate (Ventolin Neb Soln) 2.5 mg RTQID NEB Last administered on 07:17; Start 12/07/16 at 20:00 Budesonide (Pulmicort) 0.5 mg RTBID NEB Last administered on 12/09/16 07:17; Start 12/07/16 at 20:00 Albuterol Sulfate (Ventolin Neb Soln) 2.5 mg PRN Q2HRS PRN NEB SHORTNESS OF BREATH; Start 12/07/16 at 16:45 Temazepam 15 mg 15 mg PRN QHS PRN PO INSOMNIA; Start 12/07/16 at 20:30; Stop at 20:38; Status DC Sodium Chloride 500 ml @ 250 mls/hr 1X ONCE IV ; Start 12/07/16 at 20:30; Stop 12/07/16 at 20:38; Status DC Sodium Chloride (Iv Sodium Chloride 0.9% 1000ml Bag) 1,000 ml @ 80 mls/hr [id number] IV ; Start 12/07/16 at 20:30; Status UNV Pantoprazole Sodium (Protonix) 40 mg DAILYAC PO Last administered on 12/09/16 09:19; Start 12/08/16 at 12:30 Bisacodyl (Dulcolax Tab) 5 mg DAILY PO Last administered on 12/09/16 09:19; Start 12/09/16 at 09:00 Active Scripts Active Reported Milk Of Magnesia (Magnesium Hydroxide) 2,400 Mg/10 Ml Oral.susp 5,200 Mg PO PRN DAILY PRN Morphine Sulfate 10 Mg/0.5 Ml Disp.syrin 5 Mg PO PRN Q3HRS PRN Duoneb 0.5-3(2.5) Mg/3 Ml (Albuterol/Ipratropium) 3 Ml Ampul.neb 3 Ml NEB PRN Q2HR PRN Prilosec (Omeprazole Magnesium) 10 Mg Suspdr.pkt 20 Mg PO DAILY Meloxicam 15 Mg Tablet 1 Tab PO DAILY Norvasc (Amlodipine Besylate) 5 Mg Tablet 1 Tab PO DAILY Miralax (Polyethylene Glycol 3350) 17 Gm Powd.pack 1 Packet PO DAILY PRN Symbicort 160-4.5 Mcg Inhaler (Budesonide/Formoterol Fumarate) 10.2 Gm Hfa.aer.ad 2 Puff IH BID Cardizem Tablet (Diltiazem Hcl) 30 Mg Tablet 300 Mg PO DAILY Spironolactone 25 Mg Tablet 1 Tab PO DAILY Prednisone 10 Mg Tablet 10 Mg PO UD Take 3 tablets by mouth twice a day for 3 days, then take 2 tablets by mouth twice a day for 3 days, then take 1 tablet by mouth twice a day for 3 days, then take 1 tablet by mouth daily x 3 days, then stop. Oxycodone Hcl 20 Mg Tablet 20 Mg PO PRN QID PRN Bisacodyl 5 Mg Tablet.dr 5 Mg PO DAILY06 Clonidine Hcl 0.3 Mg Tablet 0.3 Mg PO TID Vitals/I & O Vital Sign - Last 24 Hours 12/08/16 12/08/16 12/08/16 12/08/16 11:28 11:43 14:22 15:49 Temp 98.0 98.2 98.0 98.2 Pulse 107 105 123 Resp 17 B/P 100/58 120/61 110/61 Pulse Ox 100 100 100 O2 Delivery Nasal Cannula Nasal Cannula Nasal Cannula O2 Flow Rate 4.0 3.0 3.0 12/08/16 12/08/16 12/08/16 12/08/16 16:09 19:11 19:31 20:07 Temp 98.0 98.0 Pulse 104 104 Resp 16 B/P 120/64 120/64 Pulse Ox 97 98 O2 Delivery Nasal Cannula Room Air Nasal Cannula O2 Flow Rate 3.0 3.0 4.0 12/08/16 12/08/16 12/08/16 12/09/16 20:48 20:49 22:08 03:33 Temp 97.6 97.5 97.6 97.5 Pulse 111 96 Resp 16 18 B/P 122/66 104/56 Pulse Ox 94 94 97 98 O2 Delivery Nasal Cannula Nasal Cannula BiPAP/CPAP BiPAP/CPAP O2 Flow Rate 3.0 3.0 3.5 5.0 12/09/16 12/09/16 12/09/16 12/09/16 07:17 07:50 08:07 09:00 Temp 97.2 97.2 Pulse 92 86 Resp 18 B/P 99/55 100/50 Pulse Ox 97 93 O2 Delivery BiPAP/CPAP BiPAP/CPAP Nasal Cannula O2 Flow Rate 3.0 4.0 Intake and Output 12/08/16 12/09/16 12/09/16 17:00 01:00 09:00 Intake Total 0 ml 350 ml Output Total 150 ml Balance -150 ml 350 ml VIOLET MORTON MD Dec 09, 2016 11:47
[2016-12-09] MEDS ORDERED: FLUT16SP NS (11:59)
[2016-12-09] MEDS ORDERED: FLUTICASONE 50MCG/NASAL SPRAY 16GM BOTTLE. NS SCH (12:00)
--- NOTE | 2016-12-09 12:19 | PDOC ---
PULMONARY PROGRESS NOTES Subjective c/o nasal congestion Vitals Vital Signs Date Time Temp Pulse Resp B/P Pulse Ox O2 Delivery O2 Flow Rate FiO2 12/09/16 09:00 86 100/50 12/09/16 08:07 Nasal Cannula 4.0 12/09/16 07:50 97.2 18 93 97.2 General: Alert, No acute distress Lungs: Other (decrease bs) Cardiovascular: S1, S2 Abdomen: Soft, Non-tender Extremities: No Edema Labs Laboratory Tests Test 12/07/16 21:08 12/08/16 04:30 Glucose (Fingerstick) 137mg/dL (70-99) White Blood Count 9.3x10^3/uL (4.0-11.0) Red Blood Count 3.04x10^6/uL (4.30-5.70) Hemoglobin 8.9g/dL (13.0-17.5) Hematocrit 27.5% (39.0-53.0) Mean Corpuscular Volume 91fL (79-100) Mean Corpuscular Hemoglobin 29pg (25-35) Mean Corpuscular Hemoglobin Concent 32g/dL (31-37) Red Cell Distribution Width 13.9% (11.5-14.5) Platelet Count 604x10^3/uL (140-400) Neutrophils (%) (Auto) 62% (31-73) Lymphocytes (%) (Auto) 25% (24-48) Monocytes (%) (Auto) 12% (0-9) Eosinophils (%) (Auto) 1% (0-3) Basophils (%) (Auto) 0% (0-3) Neutrophils # (Auto) 5.7x10^3uL (1.8-7.7) Lymphocytes # (Auto) 2.4x10^3/uL (1.0-4.8) Monocytes # (Auto) 1.1x10^3/uL (0.0-1.1) Eosinophils # (Auto) 0.1x10^3/uL (0.0-0.7) Basophils # (Auto) 0.0x10^3/uL (0.0-0.2) Sodium Level 141mmol/L (136-145) Potassium Level 3.9mmol/L (3.5-5.1) Chloride Level 98mmol/L (98-107) Carbon Dioxide Level 43mmol/L (21-32) Anion Gap 0 (6-14) Blood Urea Nitrogen 7mg/dL (8-26) Creatinine 0.5mg/dL (0.7-1.3) Estimated GFR (Cockcroft-Gault) 197.2 Glucose Level 96mg/dL (70-99) Calcium Level 8.7mg/dL (8.5-10.1) Medications Active Scripts Medications Dose Route/Sig Days Date Category Dose Instructions Milk Of Magnesia (Magnesium Hydroxide) 2,400 Mg/10 Ml Oral.susp 5,200 Mg PO PRN DAILY PRN 12/07/16 Reported Morphine Sulfate 10 Mg/0.5 Ml Disp.syrin 5 Mg PO PRN Q3HRS PRN 11/11/16 Reported Duoneb 0.5-3(2.5) Mg/3 Ml (Albuterol/Ipratropium) 3 Ml Ampul.neb 3 Ml NEB PRN Q2HR PRN 11/11/16 Reported Prilosec (Omeprazole Magnesium) 10 Mg Suspdr.pkt 20 Mg PO DAILY 11/11/16 Reported Meloxicam 15 Mg Tablet 1 Tab PO DAILY 11/11/16 Reported Norvasc (Amlodipine Besylate) 5 Mg Tablet 1 Tab PO DAILY 11/11/16 Reported Miralax (Polyethylene Glycol 3350) 17 Gm Powd.pack 1 Packet PO DAILY PRN 11/11/16 Reported Symbicort 160-4.5 Mcg Inhaler (Budesonide/Formoterol Fumarate) 10.2 Gm Hfa.aer.ad 2 Puff IH BID 11/11/16 Reported Cardizem Tablet (Diltiazem Hcl) 30 Mg Tablet 300 Mg PO DAILY 11/11/16 Reported Spironolactone 25 Mg Tablet 1 Tab PO DAILY 11/11/16 Reported Prednisone 10 Mg Tablet 10 Mg PO UD 11/11/16 Reported Take 3 tablets by mouth twice a day for 3 days, then take 2 tablets by mouth twice a day for 3 days, then take 1 tablet by mouth twice a day for 3 days, then take 1 tablet by mouth daily x 3 days, then stop. Oxycodone Hcl 20 Mg Tablet 20 Mg PO PRN QID PRN 06/13/16 Reported Bisacodyl 5 Mg Tablet.dr 5 Mg PO DAILY06 06/13/16 Reported Clonidine Hcl 0.3 Mg Tablet 0.3 Mg PO TID 12/28/13 Reported Impression . 1. Rukre-ew-[id number] respiratory failure secondary to mild acute exacerbation of chronic obstructive pulmonary disease. 2. Acute exacerbation of chronic obstructive pulmonary disease. 3. Hypertension. 4. Debility. 5. Ex-smoker. 6. Anemia. Plan . 1. Titrate FiO2 to keep O2 saturation 92%.not more than that. d/w patient 2. Bronchodilator. 3. Inhaled corticosteroid. 4. Lovenox for DVT prophylaxis. 5. Pepcid for stress ulcer prophylaxis. 6. Monitor respiratory status 7. Use Trilogy at bedtime. 8. PT, OT. 9. The findings and recommendations were discussed with the patient and RN. 10. can go back to JOHN Murray MD Dec 09, 2016 12:19
--- NOTE | 2016-12-09 18:27 | DS ---
DATE OF DISCHARGE: 12/09/2016 Radha Nichols APRN dictating on behalf of Dr. Violet Bonilla. DISCHARGE DIAGNOSES: Acute on chronic respiratory failure due to exacerbation of COPD. HISTORY OF PRESENT ILLNESS: This is a 71-year-old black male who presented to the Emergency Room on the day of admission with increased shortness of breath. The patient had been recently hospitalized for respiratory failure and septic shock along with pneumonia. Upon examination in the Emergency Room, the patient was felt to be in acute on top of chronic respiratory failure with a COPD exacerbation and was admitted to the hospital. SUMMARY OF STAY: Upon admission, Pulmonology was consulted. The patient used ____ machine from home p.r.n. as needed. The patient's oxygen saturation was maintained off ____ on O2 per nasal cannula. The patient did have periods of anxiety secondary to being on oxygen per nasal cannula regardless of his oxygen saturations being maintained greater than 95%. The patient was started on Xanax 0.25 t.i.d. p.r.n. for this. Pulmonology consulted the patient throughout his hospital stay. Flonase was started for complains of nasal congestion and Pulmonology stated the patient needed to be continued on his bronchodilator and inhaled corticosteroids. They did place the patient on Pepcid for ____ prophylaxis as well as Lovenox for DVT prophylaxis. Pulmonology stated the patient could return to alf on the day of discharge. DIET: Regular. ACTIVITY: As tolerated. DISCHARGE MEDICATIONS: Listed on the medical record and have been addressed. FOLLOWUP: The patient will be continued to be followed throughout his stay at the alf facility of the [facility]. The patient will continue to use ____ at night and O2 per nasal cannula during the day. The patient stated understanding of the above discharge summary, denied questions and will follow up accordingly. VIOLET BONILLA MD DR: HIRAL/sunny JOB#: [id number] / [id number]
== END 2016-12-09 15:30 | DRG 189 ==
LOC: ER 09:09 → 2 SOUTH 10:22 → OBSVTOIN 12-09 08:34
PROVIDERS: ADMIT Family Medicine; ATTEND Family Medicine
PROC: 5A09357 Assistance with Respiratory Ventilation, Less than 24 Consecutive Hours, Continuous Positive Airway Pressure (ICD-10-PCS; principal; 2016-12-09)
DX: J96.21 Acute and chronic respiratory failure with hypoxia (principal); J44.1 Chronic obstructive pulmonary disease with (acute) exacerbation; E46 Unspecified protein-calorie malnutrition; Z68.1 Body mass index [BMI] 19.9 or less, adult; N18.9 Chronic kidney disease, unspecified; Z96.659 Presence of unspecified artificial knee joint; I12.9 Hypertensive chronic kidney disease with stage 1 through stage 4 chronic kidney disease, or unspecified chronic kidney disease; F17.200 Nicotine dependence, unspecified, uncomplicated; D64.9 Anemia, unspecified; F06.4 Anxiety disorder due to known physiological condition; Z88.8 Allergy status to other drugs, medicaments and biological substances; Z79.899 Other long term (current) drug therapy; Z98.890 Other specified postprocedural states
CPT/HCPCS: 36415; 71010; 80048; 80076; 82805; 82947; 83605; 83690; 83880; 84484; 85007; 85027; 93005; 94250; 94640; 94760; 96360; G0378; G0379; J7040; J7620; 99285-25

== ENCOUNTER 2017-02-11 16:16 | Inpatient (IN) | payer MEDICARE, OTHER ==
[~2017-02-11] VITALS: Ht 185.4 cm; Wt 61.2 kg
[~2017-02-11 16:16] MED LIST changes: +FLUT16SP NS; +MAGN2400 PO
--- NOTE | 2017-02-11 16:23 | ED.ADGEN ---
Past Medical History Past Medical History: COPD, Hypertension, Renal Disease, Other Additional Past Medical Histor: generalized weakness, malnurished Past Surgical History: Knee Replacement, Other Additional Past Surgical Histo: PROSTATE, WRIST Alcohol Use: Occasionally Drug Use: None Adult General Chief Complaint Chief Complaint: SHORTNESS OF BREATH HPI HPI Patient is a 71 year old man, history of COPD, on 3 L nasal cannula baseline, renal disease, hypertension, who presents emergency department via EMS with report of respiratory failure. Per EMS report, upon arrival they found the patient to be to, dyspneic, and hypoxic into the 50s and 60s. Patient was unable cannula at that time. Patient was placed on CPAP for transport to the hospital, and received 2 DuoNeb treatments. Upon arrival to the emergency department, oxygen saturation is in the mid 90s, patient is able to speak, states that he began feeling ill yesterday, with increasing coughing that was nonproductive, shortness of breath. Denies any fevers or chills, any sick contacts or exposures, any focal weakness numbness or tingling, is feeling generally weak. No headache, no vision changes, no chest pain. Denies any GI or complaints. States he has been compliant with his medications. No recent antibiotic use, patient states he was last hospitalized about a month ago for a COPD exacerbation. This feels consistent with his typical COPD exacerbations. No history of DVT or PE, no swelling extremities. Review of Systems Review of Systems Constitutional: Denies fever or chills. [] Eyes: Denies change in visual acuity. [] HENT: Denies nasal congestion or sore throat. [] Respiratory: Nonproductive cough, increasing shortness of breath for the past 2 days. Cardiovascular: Denies chest pain or edema. [] GI: Denies abdominal pain, nausea, vomiting, bloody stools or diarrhea. [] : Denies dysuria. [] Musculoskeletal: Denies back pain or joint pain. [] Integument: Denies rash. [] Neurologic: Denies headache, focal weakness or sensory changes. [] Endocrine: Denies polyuria or polydipsia. [] Lymphatic: Denies swollen glands. [] Psychiatric: Denies depression or anxiety. [] Current Medications Current Medications Current Medications Medications (Trade) Dose Ordered Sig/Pierre Start Time Stop Time Status Last Admin Dose Admin Albuterol/ Ipratropium 3 ml 3 ml 1X ONCE 02/11/17 16:30 02/11/17 16:31 DC 02/11/17 16:27 3 ML Methylprednisolone Sodium Succinate (Solu-Medrol 125mg Vial) 125 mg 1X ONCE 02/11/17 16:30 02/11/17 16:31 DC 02/11/17 17:13 125 MG Sodium Chloride (Iv Sodium Chloride 0.9% 1000ml Bag) 1,000 ml @ 75 mls/hr 1X ONCE 02/11/17 17:30 02/12/17 06:49 02/11/17 17:27 75 MLS/HR Allergies Allergies Allergies Coded Allergies Type Severity Reaction Last Updated Verified lisinopril Allergy Intermediate 06/11/16 Yes Physical Exam Physical Exam Constitutional: Well developed, thin, with muscle wasting, in acute respiratory distress, ill in appearance. HENT: Normocephalic, atraumatic, bilateral external ears normal, oropharynx moist, no oral exudates, nose normal. Mask in place with BiPAP. Eyes: PERRLA, EOMI, conjunctiva normal, no discharge. [] Neck: Normal range of motion, no tenderness, supple, no stridor. [] Cardiovascular: Tachycardic, S1, S2, no rubs or gallops, soft heart sounds, limited evaluation secondary to respiratory function. [] Lungs & Thorax: Very poor air movement, throughout lung ferreira, no rhonchi, no rales appreciated. Tachypnea. Abdomen: Bowel sounds normal, soft, no tenderness, no rebound, rigidity, no guarding, no masses, no pulsatile masses. [] Skin: Warm, dry, no erythema, no rash. [] Back: No tenderness, no CVA tenderness. [] Extremities: No tenderness, no cyanosis, no clubbing, ROM intact, no edema. Muscle wasting, negative Homans sign. Neurologic: Alert and oriented X 3, normal motor function, normal sensory function, no focal deficits noted. [] Psychologic: Affect normal, judgement normal, mood normal. [] Current Patient Data Vital Signs Vital Signs Date Time Temp Pulse Resp B/P Pulse Ox O2 Delivery O2 Flow Rate FiO2 02/11/17 17:35 91 112/64 98 BiPAP/CPAP 02/11/17 16:16 97.9 22 97.9 Lab Values Laboratory Tests Test 02/11/17 16:15 02/11/17 17:15 02/11/17 17:21 White Blood Count 8.0x10^3/uL (4.0-11.0) Red Blood Count 4.24x10^6/uL (4.30-5.70) L Hemoglobin 12.1g/dL (13.0-17.5) L Hematocrit 39.2% (39.0-53.0) Mean Corpuscular Volume 93fL (79-100) Mean Corpuscular Hemoglobin 29pg (25-35) Mean Corpuscular Hemoglobin Concent 31g/dL (31-37) Red Cell Distribution Width 18.6% (11.5-14.5) H Platelet Count 257x10^3/uL (140-400) Neutrophils (%) (Auto) 47% (31-73) Lymphocytes (%) (Auto) 40% (24-48) Monocytes (%) (Auto) 13% (0-9) H Eosinophils (%) (Auto) 0% (0-3) Basophils (%) (Auto) 0% (0-3) Neutrophils # (Auto) 3.8x10^3uL (1.8-7.7) Lymphocytes # (Auto) 3.2x10^3/uL (1.0-4.8) Monocytes # (Auto) 1.0x10^3/uL (0.0-1.1) Eosinophils # (Auto) 0.0x10^3/uL (0.0-0.7) Basophils # (Auto) 0.0x10^3/uL (0.0-0.2) Sodium Level 142mmol/L (136-145) Potassium Level 4.8mmol/L (3.5-5.1) Chloride Level 97mmol/L (98-107) L Carbon Dioxide Level 41mmol/L (21-32) H Anion Gap 4 (6-14) L Blood Urea Nitrogen 21mg/dL (8-26) Creatinine 0.6mg/dL (0.7-1.3) L Estimated GFR (Cockcroft-Gault) 159.8 BUN/Creatinine Ratio 35 (6-20) H Glucose Level 118mg/dL (70-99) H Lactic Acid Level 2.7mmol/L (0.4-2.0) H Calcium Level 10.0mg/dL (8.5-10.1) Total Bilirubin 0.3mg/dL (0.2-1.0) Aspartate Amino Transferase (AST) 19U/L (15-37) Alanine Aminotransferase (ALT) 23U/L (16-63) Alkaline Phosphatase 34U/L (46-116) L Troponin I Quantitative < 0.017ng/mL (0.000-0.055) ER-Nsi-M-Type Natriuretic Peptide 45pg/mL (0-124) Total Protein 7.9g/dL (6.4-8.2) Albumin 3.7g/dL (3.4-5.0) Albumin/Globulin Ratio 0.9 (1.0-1.7) L Influenza Type A Antigen Negative (NEGATIVE) Influenza Type B Antigen Negative (NEGATIVE) O2 Saturation 92% (92-99) Arterial Blood pH 7.38 (7.35-7.45) Arterial Blood pCO2 at Patient Temp 75mmHg (35-46) *H Arterial Blood pO2 at Patient Temp 68mmHg (65-108) Arterial Blood HCO3 43mmol/L (21-28) H Arterial Blood Base Excess 15mmol/L (-3-3) H FiO2 35% Laboratory Tests 02/11/17 16:15 Laboratory Tests 02/11/17 16:15 EKG EKG EC: Sinus tachycardia, heart rate 108 beats minute, mild baseline artifact noted, QTc of 4:30, TN 136, QRS of 86, no ST elevations or depressions , aside from tachycardia, no other abnormalities identified. As interpreted by me. Radiology/Procedures Radiology/Procedures [] [facility] [address] [place] [address] IMAGING REPORT Signed PATIENT: YAYA BAIRLLAS ACCOUNT: [id number] : 1945 LOCATION: ER AGE: 71 SEX: M EXAM STATUS: PRE ER ORD. PHYSICIAN: PAM WHITE DO REASON: Hypoxia/cough PROCEDURE: PORTABLE CHEST 1V Indication difficulty breathing. Hypoxia. Cough. Single view of the chest was obtained. Comparison is made to an examination December 07, 2016. There are extensive emphysematous changes. The heart and pulmonary vessels are normal. A focal infiltrate is not seen. Significant pleural fluid is not seen and there is no pneumothorax. A significant change when compared to the previous exam is not seen. IMPRESSION: Chronic changes. No definite acute finding seen. No significant change DICTATED and SIGNED BY: LATISHA BAUM MD DATE: 02/11/17 7122 CC: PAM WHITE DO; LEISA HARRISON MD ~ Course & Med Decision Making Course & Med Decision Making Pertinent Labs and Imaging studies reviewed. (See chart for details) Patient placed on BiPAP on arrival to the ED as stated, tolerating BiPAP without issue, with improvement of respiratory function. Chest x-ray reveals emphysematous changes, no evidence of infection, edema, or other concerning changes. Mild lactic acidosis noted, consistent with patient's profound hypoxia prior to arrival in the ED, will follow. Patient is also receiving gentle hydration via IV. Patient received Solu-Medrol IV, DuoNeb's, ABG performed after trial of BiPAP reveals pH of 7.37, CO2 of 74, O2 of 68, bicarbonate of 42 , with a base excess of 14. Patient states that he is feeling better at this time, is agreeable for admission to the hospital for treatment of COPD exacerbation with respiratory failure. Findings as above discussed with Dr. Soto, on-call for the patient's primary care provider, patient accepted to her service as a full admission to the medical telemetry floor, with plan to continue supportive measures, consultation with pulmonary critical care, and weaning of BiPAP as tolerated. Patient transferred to the floor without issue. Bridge orders entered per discussion. Dragon Disclaimer Dragon Disclaimer This electronic medical record was generated, in whole or in part, using a voice recognition dictation system. Departure Impression: Primary Impression: Respiratory failure Additional Impressions: Acute and chronic respiratory failure ([id number]) COPD exacerbation Disposition: ADMITTED INPATIENT Admitting Physician: Mahi Soto Condition: IMPROVED Problem Qualifiers PAM WHITE DO Feb 11, 2017 16:23
[2017-02-11] MEDS ORDERED: methylPREDNISolone SOD SUCC PF 125 MG/2 ML VIAL. IV ONE (16:30)
[2017-02-11] MEDS ORDERED: IPRATRPIUM/ALBUTEROL 0.5/2.5MG 3 ML NEBU. NEB ONE (16:30)
[2017-02-11 16:31] LABS: BASO % 0 % (0-3); EOS % 0 % (0-3); HEMATOCRIT 39.2 % (39.0-53.0); HEMOGLOBIN 12.1 g/dL (13.0-17.5); LYMPH # 3.2 x10^3/uL (1.0-4.8); LYMPH % 40 % (24-48); MEAN CORPUSCULAR HEMOGLOBIN 29 pg (25-35); MEAN CORPUSCULAR HGB CONC 31 g/dL (31-37); MEAN CORPUSCULAR VOLUME 93 fL (79-100); MONO % 13 % (0-9); NEUT % 47 % (31-73); PLATELET COUNT 257 x10^3/uL (140-400); RED BLOOD COUNT 4.24 x10^6/uL (4.30-5.70); RED CELL DISTRIBUTION WIDTH 18.6 % (11.5-14.5)
[2017-02-11 16:44] LABS: CREATININE 0.6 mg/dL (0.7-1.3); GFR 159.8; POTASSIUM 4.8 mmol/L (3.5-5.1)
--- NOTE | 2017-02-11 16:44 | RAD ---
Indication difficulty breathing. Hypoxia. Cough. Single view of the chest was obtained. Comparison is made to an examination December 07, 2016. There are extensive emphysematous changes. The heart and pulmonary vessels are normal. A focal infiltrate is not seen. Significant pleural fluid is not seen and there is no pneumothorax. A significant change when compared to the previous exam is not seen. IMPRESSION: Chronic changes. No definite acute finding seen. No significant change
[2017-02-11 16:50] LABS: ALBUMIN 3.7 g/dL (3.4-5.0); ALBUMIN/GLOBULIN RATIO 0.9 (1.0-1.7); TOTAL BILIRUBIN 0.3 mg/dL (0.2-1.0); TOTAL PROTEIN 7.9 g/dL (6.4-8.2)
[2017-02-11] MEDS ORDERED: IV NORMAL SALINE 1000ML BAG 1,000 ML IV ONE (17:30)
[2017-02-11 17:41] LABS: HCO3 ABG 43 mmol/L (21-28); PH ABG 7.38 (7.35-7.45); PO2 ABG 68 mmHg (65-108); SAT O2 ABG 92 % (92-99)
[2017-02-11 17:45] LABS: FIO2 ABG 35%; PCO2 ABG 75 mmHg (35-46)
[2017-02-11 17:45] LABS: OBC FLU VALID
[2017-02-11 19:00] VITALS: BP 152/92
[2017-02-11] MEDS: IV NORMAL SALINE 1000ML BAG 1,000 ML IV SCH (19:27)
[2017-02-11] MEDS ORDERED: ONDANSETRON PF 4 MG/2 ML VIAL. IV PRN (19:30)
[2017-02-11] MEDS ORDERED: ACETAMINOPHEN 325 MG TABLET. PO PRN (19:30)
[2017-02-11] MEDS: IPRATRPIUM/ALBUTEROL 0.5/2.5MG 3 ML NEBU. NEB SCH (19:54)
[2017-02-11] MEDS ORDERED: AMLO5TAB2 PO (20:13)
[2017-02-11] MEDS ORDERED: FLUTICASONE 50MCG/NASAL SPRAY 16GM BOTTLE. NS PRN (20:15)
[2017-02-11] MEDS ORDERED: POLYETHYLENE GLYCOL 3350 17 GM PACKET. PO PRN (20:15)
[2017-02-11] MEDS ORDERED: IPRATRPIUM/ALBUTEROL 0.5/2.5MG 3 ML NEBU. NEB PRN (20:15)
[2017-02-11] MEDS ORDERED: MAGNESIUM HYDROXIDE 2,400 MG/30 ML ORAL.SUSP. PO PRN (20:30)
[2017-02-11] MEDS ORDERED: OXYCODONE IR 5 MG TABLET. PO PRN (20:30)
[2017-02-11] MEDS: BUDESONIDE 0.5 MG/2 ML NEBU NEB SCH (21:00)
[2017-02-11] MEDS ORDERED: NON FORMULARY ITEM (Budesonide/Formoterol Fumarate (Symbicort 160-4.5 Mcg Inhaler) 2 PUFF) IH SCH (21:00)
[2017-02-11] MEDS: methylPREDNISolone SOD SUCC PF 40 MG/ML VIAL. IV SCH (22:30)
[2017-02-11 22:59] LABS: BILIRUBIN,URINE NEGATIVE (NEG); GLUCOSE,URINE NEGATIVE (NEG); NITRITE,URINE NEGATIVE (NEG); PH,URINE 7.5; PROTEIN,URINE NEGATIVE (NEG-TRACE)
[2017-02-11 23:00] VITALS: BP 114/81
[2017-02-11 23:06] LABS: BACTERIA,URINE FEW /HPF (0-FEW); RBC,URINE 0 /HPF (0-2); SQUAMOUS EPITHELIAL CELL,UR FEW /LPF; WBC,URINE OCC /HPF (0-4)
[2017-02-12 03:00] VITALS: BP 110/70
[2017-02-12] MEDS: BISACODYL 5 MG TABLET.DR. PO SCH (05:48)
[2017-02-12] MEDS: methylPREDNISolone SOD SUCC PF 40 MG/ML VIAL. IV SCH ×3 (05:48→21:27)
[2017-02-12 05:50] LABS: BASO % 0 % (0-3); EOS % 0 % (0-3); HEMATOCRIT 36.9 % (39.0-53.0); HEMOGLOBIN 11.3 g/dL (13.0-17.5); LYMPH # 1.5 x10^3/uL (1.0-4.8); LYMPH % 27 % (24-48); MEAN CORPUSCULAR HEMOGLOBIN 28 pg (25-35); MEAN CORPUSCULAR HGB CONC 31 g/dL (31-37); MEAN CORPUSCULAR VOLUME 93 fL (79-100); MONO % 3 % (0-9); NEUT % 70 % (31-73); PLATELET COUNT 229 x10^3/uL (140-400); RED BLOOD COUNT 3.98 x10^6/uL (4.30-5.70); RED CELL DISTRIBUTION WIDTH 17.7 % (11.5-14.5); WHITE BLOOD COUNT 5.5 x10^3/uL (4.0-11.0)
[2017-02-12 06:11] LABS: CALCIUM 9.2 mg/dL (8.5-10.1); CREATININE 0.6 mg/dL (0.7-1.3); GFR 159.8
[2017-02-12] MEDS: IV NORMAL SALINE 1000ML BAG 1,000 ML IV SCH ×2 (06:35→16:59)
[2017-02-12 07:00] VITALS: BP 120/72
--- NOTE | 2017-02-12 07:01 | EKG ---
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
--- NOTE | 2017-02-12 07:36 | ACF ---
Admission Forms Criteria RESPIRATORY FAILURE [facility] Clinical Indications for Admission to Inpatient Care (Place 'X' for any and all applicable criteria): Hospital admission is needed for appropriate care of the patient because of acute respiratory failure or insufficiency as indicated by ANY ONE of the following(1)(2)(3)(4)(5)(6)(7)(8): [X]I. Mechanical ventilation needed (acute invasive or noninvasive) [ ]II. Severe ventilation deficit as indicated by ANY ONE of the following (9) [ ]a) Respiratory acidosis (pH less than 7.32 and partial pressure of carbon dioxide greater than 40 mm Hg (5.3 kPa)) [ ]b) Partial pressure of carbon dioxide greater than 44 mm Hg (5.9 kPa ) (new) [ ]c) Airflow measurements less than 25% of predicted (eg, peak expiratory flow rate less than 100 L/minute) [ ]d) Forced vital capacity less than 15 mL/kg of ideal body weight, or 50% decrease in vital capacity from baseline [ ]III. Noncardiac pulmonary edema not resolving with rapid emergency treatment (8) [ ]IV. Severe respiratory distress as indicated by ANY ONE of the following: [ ]a) Severe tachypnea (respiratory rate greater than 30, greater than 45 for 6-month-old, greater than 60 for ) [ ]b) Severe hypoxemia (partial pressure of oxygen less than 50 mm Hg ( 6.7 kPa) on greater than 50% oxygen or partial pressure of oxygen to FIO2 ratio less than 200) [ ]c) Mental status deterioration from respiratory disease [ ]V. Airway obstruction or inadequate protection [A](10)(11) The original [employer] content created by [employer] has been revised. The portions of the content which have been revised are identified through the use of italic text or in bold, and [employer] has neither reviewed nor approved the modified material. All other unmodified content is copyright [employer] Please see references footnoted in the original [employer] edition 2016 Admission Criteria Met?: Yes NURIS ASHRAF Feb 12, 2017 07:35
[2017-02-12] MEDS: SPIRONOLACTONE 25 MG TABLET PO SCH ×2 (08:09→08:12)
[2017-02-12] MEDS: PANTOPRAZOLE 40 MG TABLET. PO SCH (08:10)
[2017-02-12] MEDS: AMLODIPINE BESYLATE 5 MG TABLET PO SCH (08:10)
[2017-02-12] MEDS: IPRATRPIUM/ALBUTEROL 0.5/2.5MG 3 ML NEBU. NEB SCH ×4 (08:17→19:46)
[2017-02-12] MEDS: BUDESONIDE 0.5 MG/2 ML NEBU NEB SCH ×2 (08:17→19:45)
--- NOTE | 2017-02-12 09:45 | PDOC ---
PULMONARY PROGRESS NOTES Vitals Vital Signs Date Time Temp Pulse Resp B/P Pulse Ox O2 Delivery O2 Flow Rate FiO2 02/12/17 08:26 99 Nasal Cannula 4.0 02/12/17 08:10 88 120/72 02/12/17 07:00 97.5 20 97.5 General: Alert, No acute distress Lungs: Other Cardiovascular: S1, S2 Abdomen: Soft, Non-tender Extremities: No Edema Labs Laboratory Tests Test 02/11/17 16:15 02/11/17 17:15 02/11/17 17:21 02/11/17 21:40 White Blood Count 8.0x10^3/uL (4.0-11.0) Red Blood Count 4.24x10^6/uL (4.30-5.70) Hemoglobin 12.1g/dL (13.0-17.5) Hematocrit 39.2% (39.0-53.0) Mean Corpuscular Volume 93fL (79-100) Mean Corpuscular Hemoglobin 29pg (25-35) Mean Corpuscular Hemoglobin Concent 31g/dL (31-37) Red Cell Distribution Width 18.6% (11.5-14.5) Platelet Count 257x10^3/uL (140-400) Neutrophils (%) (Auto) 47% (31-73) Lymphocytes (%) (Auto) 40% (24-48) Monocytes (%) (Auto) 13% (0-9) Eosinophils (%) (Auto) 0% (0-3) Basophils (%) (Auto) 0% (0-3) Neutrophils # (Auto) 3.8x10^3uL (1.8-7.7) Lymphocytes # (Auto) 3.2x10^3/uL (1.0-4.8) Monocytes # (Auto) 1.0x10^3/uL (0.0-1.1) Eosinophils # (Auto) 0.0x10^3/uL (0.0-0.7) Basophils # (Auto) 0.0x10^3/uL (0.0-0.2) Sodium Level 142mmol/L (136-145) Potassium Level 4.8mmol/L (3.5-5.1) Chloride Level 97mmol/L (98-107) Carbon Dioxide Level 41mmol/L (21-32) Anion Gap 4 (6-14) Blood Urea Nitrogen 21mg/dL (8-26) Creatinine 0.6mg/dL (0.7-1.3) Estimated GFR (Cockcroft-Gault) 159.8 BUN/Creatinine Ratio 35 (6-20) Glucose Level 118mg/dL (70-99) Lactic Acid Level 2.7mmol/L (0.4-2.0) 0.7mmol/L (0.4-2.0) Calcium Level 10.0mg/dL (8.5-10.1) Total Bilirubin 0.3mg/dL (0.2-1.0) Aspartate Amino Transf (AST/SGOT) 19U/L (15-37) Alanine Aminotransferase (ALT/SGPT) 23U/L (16-63) Alkaline Phosphatase 34U/L (46-116) Troponin I Quantitative < 0.017ng/mL (0.000-0.055) QY-Chu-D-Type Natriuretic Peptide 45pg/mL (0-124) Total Protein 7.9g/dL (6.4-8.2) Albumin 3.7g/dL (3.4-5.0) Albumin/Globulin Ratio 0.9 (1.0-1.7) Influenza Type A Antigen Negative (NEGATIVE) Influenza Type B Antigen Negative (NEGATIVE) O2 Saturation 92% (92-99) Arterial Blood pH 7.38 (7.35-7.45) Arterial Blood pCO2 at Patient Temp 75mmHg (35-46) Arterial Blood pO2 at Patient Temp 68mmHg (65-108) Arterial Blood HCO3 43mmol/L (21-28) Arterial Blood Base Excess 15mmol/L (-3-3) FiO2 35% Test 02/11/17 22:45 02/12/17 05:30 Urine Collection Type Unknown Urine Color Yellow Urine Clarity Clear Urine pH 7.5 Urine Specific [place] 1.015 Urine Protein Negativemg/dL (NEG-TRACE) Urine Glucose (UA) Negativemg/dL (NEG) Urine Ketones (Stick) Negativemg/dL (NEG) Urine Blood Negative (NEG) Urine Nitrite Negative (NEG) Urine Bilirubin Negative (NEG) Urine Urobilinogen Dipstick 1.0mg/dL (0.2 mg/dL) Urine Leukocyte Esterase Negative (NEG) Urine RBC 0/HPF (0-2) Urine WBC Occ/HPF (0-4) Urine Squamous Epithelial Cells Few/LPF Urine Amorphous Sediment Present/HPF Urine Bacteria Few/HPF (0-FEW) Urine Mucus Slight/LPF White Blood Count 5.5x10^3/uL (4.0-11.0) Red Blood Count 3.98x10^6/uL (4.30-5.70) Hemoglobin 11.3g/dL (13.0-17.5) Hematocrit 36.9% (39.0-53.0) Mean Corpuscular Volume 93fL (79-100) Mean Corpuscular Hemoglobin 28pg (25-35) Mean Corpuscular Hemoglobin Concent 31g/dL (31-37) Red Cell Distribution Width 17.7% (11.5-14.5) Platelet Count 229x10^3/uL (140-400) Neutrophils (%) (Auto) 70% (31-73) Lymphocytes (%) (Auto) 27% (24-48) Monocytes (%) (Auto) 3% (0-9) Eosinophils (%) (Auto) 0% (0-3) Basophils (%) (Auto) 0% (0-3) Neutrophils # (Auto) 3.8x10^3uL (1.8-7.7) Lymphocytes # (Auto) 1.5x10^3/uL (1.0-4.8) Monocytes # (Auto) 0.2x10^3/uL (0.0-1.1) Eosinophils # (Auto) 0.0x10^3/uL (0.0-0.7) Basophils # (Auto) 0.0x10^3/uL (0.0-0.2) Sodium Level 141mmol/L (136-145) Potassium Level 4.0mmol/L (3.5-5.1) Chloride Level 98mmol/L (98-107) Carbon Dioxide Level 35mmol/L (21-32) Anion Gap 8 (6-14) Blood Urea Nitrogen 20mg/dL (8-26) Creatinine 0.6mg/dL (0.7-1.3) Estimated GFR (Cockcroft-Gault) 159.8 Glucose Level 154mg/dL (70-99) Calcium Level 9.2mg/dL (8.5-10.1) Laboratory Tests Test 02/11/17 16:15 02/11/17 17:15 02/11/17 17:21 02/11/17 21:40 White Blood Count 8.0x10^3/uL (4.0-11.0) Red Blood Count 4.24x10^6/uL (4.30-5.70) Hemoglobin 12.1g/dL (13.0-17.5) Hematocrit 39.2% (39.0-53.0) Mean Corpuscular Volume 93fL (79-100) Mean Corpuscular Hemoglobin 29pg (25-35) Mean Corpuscular Hemoglobin Concent 31g/dL (31-37) Red Cell Distribution Width 18.6% (11.5-14.5) Platelet Count 257x10^3/uL (140-400) Neutrophils (%) (Auto) 47% (31-73) Lymphocytes (%) (Auto) 40% (24-48) Monocytes (%) (Auto) 13% (0-9) Eosinophils (%) (Auto) 0% (0-3) Basophils (%) (Auto) 0% (0-3) Neutrophils # (Auto) 3.8x10^3uL (1.8-7.7) Lymphocytes # (Auto) 3.2x10^3/uL (1.0-4.8) Monocytes # (Auto) 1.0x10^3/uL (0.0-1.1) Eosinophils # (Auto) 0.0x10^3/uL (0.0-0.7) Basophils # (Auto) 0.0x10^3/uL (0.0-0.2) Sodium Level 142mmol/L (136-145) Potassium Level 4.8mmol/L (3.5-5.1) Chloride Level 97mmol/L (98-107) Carbon Dioxide Level 41mmol/L (21-32) Anion Gap 4 (6-14) Blood Urea Nitrogen 21mg/dL (8-26) Creatinine 0.6mg/dL (0.7-1.3) Estimated GFR (Cockcroft-Gault) 159.8 BUN/Creatinine Ratio 35 (6-20) Glucose Level 118mg/dL (70-99) Lactic Acid Level 2.7mmol/L (0.4-2.0) 0.7mmol/L (0.4-2.0) Calcium Level 10.0mg/dL (8.5-10.1) Total Bilirubin 0.3mg/dL (0.2-1.0) Aspartate Amino Transf (AST/SGOT) 19U/L (15-37) Alanine Aminotransferase (ALT/SGPT) 23U/L (16-63) Alkaline Phosphatase 34U/L (46-116) Troponin I Quantitative < 0.017ng/mL (0.000-0.055) HN-Ojd-Q-Type Natriuretic Peptide 45pg/mL (0-124) Total Protein 7.9g/dL (6.4-8.2) Albumin 3.7g/dL (3.4-5.0) Albumin/Globulin Ratio 0.9 (1.0-1.7) Influenza Type A Antigen Negative (NEGATIVE) Influenza Type B Antigen Negative (NEGATIVE) O2 Saturation 92% (92-99) Arterial Blood pH 7.38 (7.35-7.45) Arterial Blood pCO2 at Patient Temp 75mmHg (35-46) Arterial Blood pO2 at Patient Temp 68mmHg (65-108) Arterial Blood HCO3 43mmol/L (21-28) Arterial Blood Base Excess 15mmol/L (-3-3) FiO2 35% Test 02/11/17 22:45 02/12/17 05:30 Urine Collection Type Unknown Urine Color Yellow Urine Clarity Clear Urine pH 7.5 Urine Specific [place] 1.015 Urine Protein Negativemg/dL (NEG-TRACE) Urine Glucose (UA) Negativemg/dL (NEG) Urine Ketones (Stick) Negativemg/dL (NEG) Urine Blood Negative (NEG) Urine Nitrite Negative (NEG) Urine Bilirubin Negative (NEG) Urine Urobilinogen Dipstick 1.0mg/dL (0.2 mg/dL) Urine Leukocyte Esterase Negative (NEG) Urine RBC 0/HPF (0-2) Urine WBC Occ/HPF (0-4) Urine Squamous Epithelial Cells Few/LPF Urine Amorphous Sediment Present/HPF Urine Bacteria Few/HPF (0-FEW) Urine Mucus Slight/LPF White Blood Count 5.5x10^3/uL (4.0-11.0) Red Blood Count 3.98x10^6/uL (4.30-5.70) Hemoglobin 11.3g/dL (13.0-17.5) Hematocrit 36.9% (39.0-53.0) Mean Corpuscular Volume 93fL (79-100) Mean Corpuscular Hemoglobin 28pg (25-35) Mean Corpuscular Hemoglobin Concent 31g/dL (31-37) Red Cell Distribution Width 17.7% (11.5-14.5) Platelet Count 229x10^3/uL (140-400) Neutrophils (%) (Auto) 70% (31-73) Lymphocytes (%) (Auto) 27% (24-48) Monocytes (%) (Auto) 3% (0-9) Eosinophils (%) (Auto) 0% (0-3) Basophils (%) (Auto) 0% (0-3) Neutrophils # (Auto) 3.8x10^3uL (1.8-7.7) Lymphocytes # (Auto) 1.5x10^3/uL (1.0-4.8) Monocytes # (Auto) 0.2x10^3/uL (0.0-1.1) Eosinophils # (Auto) 0.0x10^3/uL (0.0-0.7) Basophils # (Auto) 0.0x10^3/uL (0.0-0.2) Sodium Level 141mmol/L (136-145) Potassium Level 4.0mmol/L (3.5-5.1) Chloride Level 98mmol/L (98-107) Carbon Dioxide Level 35mmol/L (21-32) Anion Gap 8 (6-14) Blood Urea Nitrogen 20mg/dL (8-26) Creatinine 0.6mg/dL (0.7-1.3) Estimated GFR (Cockcroft-Gault) 159.8 Glucose Level 154mg/dL (70-99) Calcium Level 9.2mg/dL (8.5-10.1) Medications Active Scripts Medications Dose Route/Sig Days Date Category Dose Instructions Amlodipine Besylate 5 Mg Tablet 5 Mg PO DAILY 02/11/17 Reported Fluticasone Propionate Nasal Liberty (Fluticasone Propionate) 16 Gm Liberty.susp 2 Liberty NS PRN DAILY PRN 12/09/16 Rx Milk Of Magnesia (Magnesium Hydroxide) 2,400 Mg/10 Ml Oral.susp 5,200 Mg PO PRN DAILY PRN 12/07/16 Reported Duoneb 0.5-3(2.5) Mg/3 Ml (Albuterol/Ipratropium) 3 Ml Ampul.neb 3 Ml NEB PRN Q2HR PRN 11/11/16 Reported Prilosec (Omeprazole Magnesium) 10 Mg Suspdr.pkt 20 Mg PO DAILY 11/11/16 Reported Miralax (Polyethylene Glycol 3350) 17 Gm Powd.pack 1 Packet PO DAILY PRN 11/11/16 Reported Symbicort 160-4.5 Mcg Inhaler (Budesonide/Formoterol Fumarate) 10.2 Gm Hfa.aer.ad 2 Puff IH BID 11/11/16 Reported Spironolactone 25 Mg Tablet 1 Tab PO DAILY 11/11/16 Reported Prednisone 10 Mg Tablet 10 Mg PO UD 11/11/16 Reported Take 3 tablets by mouth twice a day for 3 days, then take 2 tablets by mouth twice a day for 3 days, then take 1 tablet by mouth twice a day for 3 days, then take 1 tablet by mouth daily x 3 days, then stop. Oxycodone Hcl 20 Mg Tablet 20 Mg PO PRN QID PRN 06/13/16 Reported Bisacodyl 5 Mg Tablet.dr 5 Mg PO DAILY06 06/13/16 Reported Clonidine Hcl 0.3 Mg Tablet 0.3 Mg PO TID 12/28/13 Reported Impression . [id number] AECOPD NONCOMPLIANCE WITH HOME BIPAP SEE NOTE THANKS LIGIA MOORE MD Feb 12, 2017 09:45
--- NOTE | 2017-02-12 09:51 | PDOC ---
OBJECTIVE Vital Signs Vital Signs Date Time Temp Pulse Resp B/P Pulse Ox O2 Delivery O2 Flow Rate FiO2 02/12/17 08:26 99 Nasal Cannula 4.0 02/12/17 08:10 88 120/72 02/12/17 08:00 Nasal Cannula 4.5 02/12/17 07:00 97.5 88 20 120/72 99 BiPAP/CPAP 97.5 02/12/17 06:04 99 BiPAP/CPAP 02/12/17 03:15 99 BiPAP/CPAP 02/12/17 03:00 98.5 86 20 110/70 100 BiPAP/CPAP 4.5 98.5 02/12/17 00:25 99 BiPAP/CPAP 02/11/17 23:00 97.6 87 20 114/81 98 BiPAP/CPAP 4.5 97.6 02/11/17 20:00 Nasal Cannula 4.5 02/11/17 19:58 99 BiPAP/CPAP 02/11/17 19:00 97.7 97 20 152/92 98 BiPAP/CPAP 97.7 02/11/17 18:28 99 BiPAP/CPAP 02/11/17 18:05 87 27 110/60 95 BiPAP/CPAP 02/11/17 17:50 89 24 110/66 96 BiPAP/CPAP 02/11/17 17:35 91 112/64 98 BiPAP/CPAP 02/11/17 17:20 97 105/57 98 BiPAP/CPAP 02/11/17 17:05 97 108/58 98 BiPAP/CPAP 02/11/17 16:46 118 192/82 99 BiPAP/CPAP 02/11/17 16:21 99 BiPAP/CPAP 02/11/17 16:16 97.9 112 22 158/93 99 BiPAP/CPAP 97.9 I & O Intake and Output 02/12/17 07:00 Intake Total 400 ml Output Total 650 ml Balance -250 ml Intake Oral 400 ml Output Urine Total 650 ml ASSESSMENT/PLAN Assessment/Plan [id number] H&P dictated Problems: COMMENT Lab Laboratory Tests Test 02/11/17 16:15 02/11/17 17:15 02/11/17 17:21 02/11/17 21:40 White Blood Count 8.0x10^3/uL (4.0-11.0) Red Blood Count 4.24x10^6/uL (4.30-5.70) Hemoglobin 12.1g/dL (13.0-17.5) Hematocrit 39.2% (39.0-53.0) Mean Corpuscular Volume 93fL (79-100) Mean Corpuscular Hemoglobin 29pg (25-35) Mean Corpuscular Hemoglobin Concent 31g/dL (31-37) Red Cell Distribution Width 18.6% (11.5-14.5) Platelet Count 257x10^3/uL (140-400) Neutrophils (%) (Auto) 47% (31-73) Lymphocytes (%) (Auto) 40% (24-48) Monocytes (%) (Auto) 13% (0-9) Eosinophils (%) (Auto) 0% (0-3) Basophils (%) (Auto) 0% (0-3) Neutrophils # (Auto) 3.8x10^3uL (1.8-7.7) Lymphocytes # (Auto) 3.2x10^3/uL (1.0-4.8) Monocytes # (Auto) 1.0x10^3/uL (0.0-1.1) Eosinophils # (Auto) 0.0x10^3/uL (0.0-0.7) Basophils # (Auto) 0.0x10^3/uL (0.0-0.2) Sodium Level 142mmol/L (136-145) Potassium Level 4.8mmol/L (3.5-5.1) Chloride Level 97mmol/L (98-107) Carbon Dioxide Level 41mmol/L (21-32) Anion Gap 4 (6-14) Blood Urea Nitrogen 21mg/dL (8-26) Creatinine 0.6mg/dL (0.7-1.3) Estimated GFR (Cockcroft-Gault) 159.8 BUN/Creatinine Ratio 35 (6-20) Glucose Level 118mg/dL (70-99) Lactic Acid Level 2.7mmol/L (0.4-2.0) 0.7mmol/L (0.4-2.0) Calcium Level 10.0mg/dL (8.5-10.1) Total Bilirubin 0.3mg/dL (0.2-1.0) Aspartate Amino Transf (AST/SGOT) 19U/L (15-37) Alanine Aminotransferase (ALT/SGPT) 23U/L (16-63) Alkaline Phosphatase 34U/L (46-116) Troponin I Quantitative < 0.017ng/mL (0.000-0.055) TO-Xiq-B-Type Natriuretic Peptide 45pg/mL (0-124) Total Protein 7.9g/dL (6.4-8.2) Albumin 3.7g/dL (3.4-5.0) Albumin/Globulin Ratio 0.9 (1.0-1.7) Influenza Type A Antigen Negative (NEGATIVE) Influenza Type B Antigen Negative (NEGATIVE) O2 Saturation 92% (92-99) Arterial Blood pH 7.38 (7.35-7.45) Arterial Blood pCO2 at Patient Temp 75mmHg (35-46) Arterial Blood pO2 at Patient Temp 68mmHg (65-108) Arterial Blood HCO3 43mmol/L (21-28) Arterial Blood Base Excess 15mmol/L (-3-3) FiO2 35% Test 02/11/17 22:45 02/12/17 05:30 Urine Collection Type Unknown Urine Color Yellow Urine Clarity Clear Urine pH 7.5 Urine Specific [place] 1.015 Urine Protein Negativemg/dL (NEG-TRACE) Urine Glucose (UA) Negativemg/dL (NEG) Urine Ketones (Stick) Negativemg/dL (NEG) Urine Blood Negative (NEG) Urine Nitrite Negative (NEG) Urine Bilirubin Negative (NEG) Urine Urobilinogen Dipstick 1.0mg/dL (0.2 mg/dL) Urine Leukocyte Esterase Negative (NEG) Urine RBC 0/HPF (0-2) Urine WBC Occ/HPF (0-4) Urine Squamous Epithelial Cells Few/LPF Urine Amorphous Sediment Present/HPF Urine Bacteria Few/HPF (0-FEW) Urine Mucus Slight/LPF White Blood Count 5.5x10^3/uL (4.0-11.0) Red Blood Count 3.98x10^6/uL (4.30-5.70) Hemoglobin 11.3g/dL (13.0-17.5) Hematocrit 36.9% (39.0-53.0) Mean Corpuscular Volume 93fL (79-100) Mean Corpuscular Hemoglobin 28pg (25-35) Mean Corpuscular Hemoglobin Concent 31g/dL (31-37) Red Cell Distribution Width 17.7% (11.5-14.5) Platelet Count 229x10^3/uL (140-400) Neutrophils (%) (Auto) 70% (31-73) Lymphocytes (%) (Auto) 27% (24-48) Monocytes (%) (Auto) 3% (0-9) Eosinophils (%) (Auto) 0% (0-3) Basophils (%) (Auto) 0% (0-3) Neutrophils # (Auto) 3.8x10^3uL (1.8-7.7) Lymphocytes # (Auto) 1.5x10^3/uL (1.0-4.8) Monocytes # (Auto) 0.2x10^3/uL (0.0-1.1) Eosinophils # (Auto) 0.0x10^3/uL (0.0-0.7) Basophils # (Auto) 0.0x10^3/uL (0.0-0.2) Sodium Level 141mmol/L (136-145) Potassium Level 4.0mmol/L (3.5-5.1) Chloride Level 98mmol/L (98-107) Carbon Dioxide Level 35mmol/L (21-32) Anion Gap 8 (6-14) Blood Urea Nitrogen 20mg/dL (8-26) Creatinine 0.6mg/dL (0.7-1.3) Estimated GFR (Cockcroft-Gault) 159.8 Glucose Level 154mg/dL (70-99) Calcium Level 9.2mg/dL (8.5-10.1) ERICH BLACK MD Feb 12, 2017 09:51
[2017-02-12 10:34] VITALS: BP 111/67
[2017-02-12 15:00] VITALS: BP 118/67
[2017-02-12] MEDS ORDERED: HALOPERIDOL LACT 5 MG/ML VIAL. IVP PRN (17:00)
[2017-02-12 19:00] VITALS: BP 117/77
--- NOTE | 2017-02-12 19:39 | PREOP HP ---
DATE OF SERVICE: HISTORY OF PRESENT ILLNESS: The patient is a 71-year-old gentleman who is known to have severe COPD. He is on oxygen at home. He does have repeated admissions for respiratory failure with hypercapnia, who presented to the Emergency Room, brought by EMS, due to increasing shortness of breath, not able to breathe and hypoxia. His oximetry was apparently in the 60s upon the EMS arrival to his house. He is seen in the Emergency Room, was evaluated. He was hypercapnic on his ABGs. He was treated with CPAP and was improving in the Emergency Room and after that, he was admitted for further evaluation and treatment. The patient is chronically ill appearing and has had multiple similar presentations in the past. PAST MEDICAL HISTORY: Significant for hypertension, hypertensive cardiovascular disease, COPD, respiratory failure with hypercapnia, prostate cancer status post prostatectomy, incontinence, osteoarthritis, previous history of right knee replacement, chronic kidney disease, malnourishment, and generalized weakness. SOCIAL HISTORY: He used to smoke, but has not smoked lately. He is on oxygen at home. He does drink alcohol occasionally. Does not use drugs. REVIEW OF SYSTEMS: CONSTITUTIONAL: Denies fever or chills. EYES: Denies visual changes. HENT: Denies sore throat or nasal congestion. RESPIRATORY: He does have cough and increasing shortness of breath for the last couple of days. CARDIOVASCULAR: Denies chest pain or edema in the lower extremities. GASTROINTESTINAL: Denies abdominal pain, nausea, vomiting, or diarrhea. MUSCULOSKELETAL: He does have arthritis pain on and off. GENITOURINARY: Denies dysuria, does have incontinence. NEUROLOGIC: Without focal weakness or headache. DERMATOLOGIC: Without rash. PHYSICAL EXAMINATION: GENERAL: He is alert and oriented, cooperative. He is chronically ill-appearing appearance. HENT: Normocephalic, atraumatic. EYES: Conjunctivae color is normal. NECK: Supple. HEART: Regular rate and rhythm with decreased cardiac sounds. LUNGS: Also with decreased breath sounds and poor air movement. ABDOMEN: Soft, nontender, no organomegaly, no masses or bruits. SKIN: Warm and dry. BACK: Without CVA tenderness. EXTREMITIES: Without edema, clubbing, or cyanosis. He does have muscle wasting. Negative Mckenna sign. NEUROLOGIC: Without headache and he moves all his extremities without problem. IMPRESSION: 1. Respiratory failure with hypercapnia and hypoxia. 2. Chronic obstructive pulmonary disease exacerbation. 3. Hypertension. 4. Previous history of prostate cancer, status post prostatectomy. 5. Urinary incontinence. 6. Malnourishment. 7. Osteoarthritis. ERICH BLACK MD DR: SHAY/sunny JOB#: [id number] / [id number]
[2017-02-12 22:33] VITALS: BP 126/84
--- NOTE | 2017-02-13 01:38 | CONS ---
DATE OF CONSULTATION: 02/12/2017 ATTENDING PHYSICIAN: Mahi Soto M.D. REASON FOR CONSULTATION: The patient seen in pulmonary consultation at the request of Dr. Soto for acute on chronic respiratory failure. HISTORY OF PRESENT ILLNESS: The patient is a well-known patient to me from previous hospitalization with chronic respiratory failure secondary to severe COPD, presented with increasing shortness of breath. The patient states he was noncompliant with his BiPAP at home. His initial blood gas revealed a pH of 7.38, PaCO2 of 75, pO2 of 68. He wishes to go home, he feels better. He has a cough, mostly nonproductive. No fever, chills or night sweats. PAST MEDICAL HISTORY: Chronic respiratory failure, end-stage COPD, hypercapnia and hypertension. PAST SURGICAL HISTORY: Status post knee replacement, prostate surgery. ALLERGIES: TO LISINOPRIL. REVIEW OF SYSTEMS: Unobtainable secondary to the patient's condition. CURRENT MEDICATION: List was reviewed. PHYSICAL EXAMINATION: GENERAL: The patient was in no respiratory distress. VITAL SIGNS: Stable. O2 saturation was greater than 92%. He was able to talk through the mask. He wishes to go home. HEENT: Eyes, the sclerae were nonicteric. NECK: Jugular venous distention was not elevated. No lymphadenopathy. CHEST: Full expansion. LUNGS: Poor airway flow, no wheezes. CARDIOVASCULAR: Regular rate and rhythm with S1, S2, no S3. ABDOMEN: Soft, nontender, nondistended. EXTREMITIES: No clubbing, cyanosis or edema. NEUROLOGIC: The patient was awake, alert, following commands. A detailed neuro exam was not performed. LABORATORY DATA: Reviewed. White count was normal. Hemoglobin and hematocrit were noted. Electrolytes were noted. Arterial blood gas was noted. Chest x-ray: No acute cardiopulmonary process. IMPRESSION: 1. Acute on chronic hypoxemic hypercapnic respiratory failure. 2. Acute exacerbation of chronic obstructive pulmonary disease. 3. Noncompliance with home BiPAP. 4. Chest x-ray revealing chronic changes. No evidence of pneumonia. PLAN: 1. Continue current support with BiPAP. 2. Steroids. 3. No need for antibiotics. 4. If the patient continues to improve, discharge home in the a.m., okayed by me. I do appreciate the privilege in sharing in his care. LIGIA MOORE MD DR: Javier JOB#: [id number] / [id number]
[2017-02-13] MEDS: methylPREDNISolone SOD SUCC PF 40 MG/ML VIAL. IV SCH ×3 (06:10→20:32)
[2017-02-13] MEDS: BISACODYL 5 MG TABLET.DR. PO SCH (06:10)
[2017-02-13 07:00] VITALS: BP 92/58
[2017-02-13] MEDS: ALBUTEROL SULFATE 2.5 MG/3 ML NEBU. NEB PRN ×3 (07:43→18:35)
[2017-02-13] MEDS: BUDESONIDE 0.5 MG/2 ML NEBU NEB SCH (07:43)
[2017-02-13 08:05] LABS: HCO3 ABG 41 mmol/L (21-28); PH ABG 7.36 (7.35-7.45); PO2 ABG 89 mmHg (65-108); SAT O2 ABG 96 % (92-99)
[2017-02-13 08:07] LABS: PCO2 ABG 75 mmHg (35-46)
[2017-02-13 08:08] LABS: FIO2 ABG 35 bipap
[2017-02-13] MEDS: SPIRONOLACTONE 25 MG TABLET PO SCH (08:23)
[2017-02-13] MEDS: PANTOPRAZOLE 40 MG TABLET. PO SCH (08:23)
[2017-02-13] MEDS: AMLODIPINE BESYLATE 5 MG TABLET PO SCH ×2 (08:28→21:45)
[2017-02-13] MEDS ORDERED: PRED-220 PO (09:14)
--- NOTE | 2017-02-13 09:14 | PDOC ---
SUBJECTIVE Subjective getting bathed and cleaned up, feels better , breathing better, state ready to go home OBJECTIVE Vital Signs Vital Signs Date Time Temp Pulse Resp B/P Pulse Ox O2 Delivery O2 Flow Rate FiO2 02/13/17 08:28 88 92/58 02/13/17 07:46 96 Nasal Cannula 4.0 02/13/17 07:00 97.9 88 18 92/58 96 Nasal Cannula 5.0 97.9 02/12/17 22:33 97.8 98 20 126/84 100 BiPAP/CPAP 97.8 02/12/17 20:00 Nasal Cannula 4.5 02/12/17 19:43 BiPAP/CPAP 02/12/17 19:00 97.4 91 20 117/77 98 BiPAP/CPAP 97.4 02/12/17 15:57 BiPAP/CPAP 02/12/17 15:00 97.6 93 14 118/67 90 BiPAP/CPAP 97.6 02/12/17 11:12 99 BiPAP/CPAP 02/12/17 10:34 97.4 96 20 111/67 100 BiPAP/CPAP 97.4 I & O Intake and Output 02/13/17 07:00 Output Total 4150 ml Balance -4150 ml Output Urine Total 4150 ml # Voids 1 # Bowel Movements 1 PHYSICAL EXAM Physical Exam lungs with better air movement heart RRR abd soft ext no edema ASSESSMENT/PLAN Assessment/Plan still hypercapnic but emilia hypoxic , he feels better and wants to go home, hypercapnia likely chronic and close to his base line, discussed and emphasized importance of using BiPAP , pt does understand. if ok with pulmonary home today on taper steroids with home health , F/U out pt Problems: COMMENT Lab Laboratory Tests Test 02/13/17 07:40 O2 Saturation 96% (92-99) Arterial Blood pH 7.36 (7.35-7.45) Arterial Blood pCO2 at Patient Temp 75mmHg (35-46) Arterial Blood pO2 at Patient Temp 89mmHg (65-108) Arterial Blood HCO3 41mmol/L (21-28) Arterial Blood Base Excess 12mmol/L (-3-3) FiO2 35 bipap ERICH BLACK MD Feb 13, 2017 09:14
--- NOTE | 2017-02-13 09:32 | PDOC3 ---
Discharge Summary* Date of Admission: Feb 11, 2017 Date of Discharge: Feb 13, 2017 Admitting Diagnosis Problems Medical Problems: (1) Acute and chronic respiratory failure ([id number]) Status: Acute (2) COPD exacerbation Status: Acute (3) Respiratory failure Status: Acute Final Diagnosis 1. Acute on chronic hypoxemic hypercapnic respiratory failure. 2. Acute exacerbation of chronic obstructive pulmonary disease. 3. Noncompliance with home BiPAP. 4. Hypertension. no need for clonidine , Bp ok with Amlodipine only 5. Previous history of prostate cancer, status post prostatectomy.6.. Urinary incontinence. 6. Malnourishment. 7. Osteoarthritis Medical Problems: (1) Acute and chronic respiratory failure ([id number]) Status: Acute (2) COPD exacerbation Status: Acute (3) Respiratory failure Status: Acute CONSULTS pulmonary Procedures CPAP treatment with O2 CXR Brief Hospital Course Mr. Taylor is a 71 old [sex] who presented with [ ] Disposition/Orders: D/C to Home w/ HH CONDITION AT DISCHARGE: Improved, Comment Diet: Mechanical Soft/Chopped Scheduled Amlodipine Besylate (Amlodipine Besylate) 5 MG PO DAILY (Reported) Bisacodyl (Bisacodyl) 5 MG PO DAILY06 (Reported) Budesonide/Formoterol Fumarate (Symbicort 160-4.5 Mcg Inhaler) 2 PUFF IH BID ( Reported) Clonidine Hcl (Clonidine Hcl) 0.3 MG PO TID (Reported) Omeprazole Magnesium (Prilosec) 20 MG PO DAILY (Reported) Prednisone (Prednisone) 10 MG PO UD Spironolactone (Spironolactone) 1 TAB PO DAILY (Reported) Scheduled PRN Fluticasone Propionate (Fluticasone Propionate Nasal [place]) 2 SPRAY NS PRN DAILY PRN PRN ALLERGIES Ipratropium/Albuterol Sulfate (Duoneb 0.5-3(2.5) Mg/3 Ml) 3 ML NEB PRN Q2HR PRN PRN SHORTNESS OF BREATH (Reported) Magnesium Hydroxide (Milk Of Magnesia) 5,200 MG PO PRN DAILY PRN PRN CONSTIPATION (Reported) Oxycodone Hcl (Oxycodone Hcl) 20 MG PO PRN QID PRN PRN PAIN (Reported) Polyethylene Glycol 3350 (Miralax) 1 PACKET PO DAILY PRN PRN CONSTIPATION ( Reported) FOLLOW UP APPOINTMENT: stop clonidine F/U Dr. Irizarry in 1-2 weeks Time Spent Total time spent with patient [] minutes for coordination of care, counseling, and education. ERICH BLACK MD Feb 13, 2017 09:32
[2017-02-13 10:59] VITALS: BP 99/54
--- NOTE | 2017-02-13 14:50 | PDOC ---
PULMONARY PROGRESS NOTES Subjective feels better wants to go home Vitals Vital Signs Date Time Temp Pulse Resp B/P Pulse Ox O2 Delivery O2 Flow Rate FiO2 02/13/17 11:23 Nasal Cannula 4.0 02/13/17 10:59 98.6 89 24 99/54 95 98.6 General: Alert, No acute distress Lungs: Other (decrwease bs) Cardiovascular: S1, S2 Abdomen: Soft, Non-tender Neuro Exam: Alert Extremities: No Edema Labs Laboratory Tests Test 02/11/17 16:15 02/11/17 17:15 02/11/17 17:21 02/11/17 21:40 White Blood Count 8.0x10^3/uL (4.0-11.0) Red Blood Count 4.24x10^6/uL (4.30-5.70) Hemoglobin 12.1g/dL (13.0-17.5) Hematocrit 39.2% (39.0-53.0) Mean Corpuscular Volume 93fL (79-100) Mean Corpuscular Hemoglobin 29pg (25-35) Mean Corpuscular Hemoglobin Concent 31g/dL (31-37) Red Cell Distribution Width 18.6% (11.5-14.5) Platelet Count 257x10^3/uL (140-400) Neutrophils (%) (Auto) 47% (31-73) Lymphocytes (%) (Auto) 40% (24-48) Monocytes (%) (Auto) 13% (0-9) Eosinophils (%) (Auto) 0% (0-3) Basophils (%) (Auto) 0% (0-3) Neutrophils # (Auto) 3.8x10^3uL (1.8-7.7) Lymphocytes # (Auto) 3.2x10^3/uL (1.0-4.8) Monocytes # (Auto) 1.0x10^3/uL (0.0-1.1) Eosinophils # (Auto) 0.0x10^3/uL (0.0-0.7) Basophils # (Auto) 0.0x10^3/uL (0.0-0.2) Sodium Level 142mmol/L (136-145) Potassium Level 4.8mmol/L (3.5-5.1) Chloride Level 97mmol/L (98-107) Carbon Dioxide Level 41mmol/L (21-32) Anion Gap 4 (6-14) Blood Urea Nitrogen 21mg/dL (8-26) Creatinine 0.6mg/dL (0.7-1.3) Estimated GFR (Cockcroft-Gault) 159.8 BUN/Creatinine Ratio 35 (6-20) Glucose Level 118mg/dL (70-99) Lactic Acid Level 2.7mmol/L (0.4-2.0) 0.7mmol/L (0.4-2.0) Calcium Level 10.0mg/dL (8.5-10.1) Total Bilirubin 0.3mg/dL (0.2-1.0) Aspartate Amino Transf (AST/SGOT) 19U/L (15-37) Alanine Aminotransferase (ALT/SGPT) 23U/L (16-63) Alkaline Phosphatase 34U/L (46-116) Troponin I Quantitative < 0.017ng/mL (0.000-0.055) PM-Gpf-P-Type Natriuretic Peptide 45pg/mL (0-124) Total Protein 7.9g/dL (6.4-8.2) Albumin 3.7g/dL (3.4-5.0) Albumin/Globulin Ratio 0.9 (1.0-1.7) Influenza Type A Antigen Negative (NEGATIVE) Influenza Type B Antigen Negative (NEGATIVE) O2 Saturation 92% (92-99) Arterial Blood pH 7.38 (7.35-7.45) Arterial Blood pCO2 at Patient Temp 75mmHg (35-46) Arterial Blood pO2 at Patient Temp 68mmHg (65-108) Arterial Blood HCO3 43mmol/L (21-28) Arterial Blood Base Excess 15mmol/L (-3-3) FiO2 35% Test 02/11/17 22:45 02/12/17 05:30 02/13/17 07:40 Urine Collection Type Unknown Urine Color Yellow Urine Clarity Clear Urine pH 7.5 Urine Specific [place] 1.015 Urine Protein Negativemg/dL (NEG-TRACE) Urine Glucose (UA) Negativemg/dL (NEG) Urine Ketones (Stick) Negativemg/dL (NEG) Urine Blood Negative (NEG) Urine Nitrite Negative (NEG) Urine Bilirubin Negative (NEG) Urine Urobilinogen Dipstick 1.0mg/dL (0.2 mg/dL) Urine Leukocyte Esterase Negative (NEG) Urine RBC 0/HPF (0-2) Urine WBC Occ/HPF (0-4) Urine Squamous Epithelial Cells Few/LPF Urine Amorphous Sediment Present/HPF Urine Bacteria Few/HPF (0-FEW) Urine Mucus Slight/LPF White Blood Count 5.5x10^3/uL (4.0-11.0) Red Blood Count 3.98x10^6/uL (4.30-5.70) Hemoglobin 11.3g/dL (13.0-17.5) Hematocrit 36.9% (39.0-53.0) Mean Corpuscular Volume 93fL (79-100) Mean Corpuscular Hemoglobin 28pg (25-35) Mean Corpuscular Hemoglobin Concent 31g/dL (31-37) Red Cell Distribution Width 17.7% (11.5-14.5) Platelet Count 229x10^3/uL (140-400) Neutrophils (%) (Auto) 70% (31-73) Lymphocytes (%) (Auto) 27% (24-48) Monocytes (%) (Auto) 3% (0-9) Eosinophils (%) (Auto) 0% (0-3) Basophils (%) (Auto) 0% (0-3) Neutrophils # (Auto) 3.8x10^3uL (1.8-7.7) Lymphocytes # (Auto) 1.5x10^3/uL (1.0-4.8) Monocytes # (Auto) 0.2x10^3/uL (0.0-1.1) Eosinophils # (Auto) 0.0x10^3/uL (0.0-0.7) Basophils # (Auto) 0.0x10^3/uL (0.0-0.2) Sodium Level 141mmol/L (136-145) Potassium Level 4.0mmol/L (3.5-5.1) Chloride Level 98mmol/L (98-107) Carbon Dioxide Level 35mmol/L (21-32) Anion Gap 8 (6-14) Blood Urea Nitrogen 20mg/dL (8-26) Creatinine 0.6mg/dL (0.7-1.3) Estimated GFR (Cockcroft-Gault) 159.8 Glucose Level 154mg/dL (70-99) Calcium Level 9.2mg/dL (8.5-10.1) O2 Saturation 96% (92-99) Arterial Blood pH 7.36 (7.35-7.45) Arterial Blood pCO2 at Patient Temp 75mmHg (35-46) Arterial Blood pO2 at Patient Temp 89mmHg (65-108) Arterial Blood HCO3 41mmol/L (21-28) Arterial Blood Base Excess 12mmol/L (-3-3) FiO2 35 bipap Laboratory Tests Test 02/13/17 07:40 O2 Saturation 96% (92-99) Arterial Blood pH 7.36 (7.35-7.45) Arterial Blood pCO2 at Patient Temp 75mmHg (35-46) Arterial Blood pO2 at Patient Temp 89mmHg (65-108) Arterial Blood HCO3 41mmol/L (21-28) Arterial Blood Base Excess 12mmol/L (-3-3) FiO2 35 bipap Medications Active Scripts Medications Dose Route/Sig Days Date Category Dose Instructions Amlodipine Besylate 5 Mg Tablet 5 Mg PO DAILY 02/11/17 Reported Fluticasone Propionate Nasal [place] (Fluticasone Propionate) 16 Gm [place].susp 2 [place] NS PRN DAILY PRN 12/09/16 Rx Milk Of Magnesia (Magnesium Hydroxide) 2,400 Mg/10 Ml Oral.susp 5,200 Mg PO PRN DAILY PRN 12/07/16 Reported Duoneb 0.5-3(2.5) Mg/3 Ml (Albuterol/Ipratropium) 3 Ml Ampul.neb 3 Ml NEB PRN Q2HR PRN 11/11/16 Reported Prilosec (Omeprazole Magnesium) 10 Mg Suspdr.pkt 20 Mg PO DAILY 11/11/16 Reported Miralax (Polyethylene Glycol 3350) 17 Gm Powd.pack 1 Packet PO DAILY PRN 11/11/16 Reported Symbicort 160-4.5 Mcg Inhaler (Budesonide/Formoterol Fumarate) 10.2 Gm Hfa.aer.ad 2 Puff IH BID 11/11/16 Reported Spironolactone 25 Mg Tablet 1 Tab PO DAILY 11/11/16 Reported Prednisone 10 Mg Tablet 10 Mg PO UD 11/11/16 Reported Take 3 tablets by mouth twice a day for 3 days, then take 2 tablets by mouth twice a day for 3 days, then take 1 tablet by mouth twice a day for 3 days, then take 1 tablet by mouth daily x 3 days, then stop. Oxycodone Hcl 20 Mg Tablet 20 Mg PO PRN QID PRN 06/13/16 Reported Bisacodyl 5 Mg Tablet.dr 5 Mg PO DAILY06 06/13/16 Reported Clonidine Hcl 0.3 Mg Tablet 0.3 Mg PO TID 12/28/13 Reported Impression . 1. Acute on chronic hypoxemic hypercapnic respiratory failure. 2. Acute exacerbation of chronic obstructive pulmonary disease. 3. Noncompliance with home BiPAP. 4. Chest x-ray revealing chronic changes. No evidence of pneumonia. Plan . 1. prn BiPAP. 2. Steroids. 3. No need for antibiotics. 4. ok with discharge home JOHN BAIRES MD Feb 13, 2017 14:50
[2017-02-13 15:00] VITALS: BP 110/62
[2017-02-13] MEDS: BUDESONIDE 0.5 MG/2 ML NEBU. NEB SCH (18:35)
[2017-02-13 19:00] VITALS: BP 144/84
[2017-02-13] MEDS ORDERED: CLONAZEPAM 0.5 MG TABLET PO PRN (20:00)
[2017-02-13 23:00] VITALS: BP 166/90
[2017-02-14 03:08] VITALS: BP 161/90
[2017-02-14] MEDS: BISACODYL 5 MG TABLET.DR. PO SCH (05:43)
[2017-02-14] MEDS ORDERED: DIGOXIN 500 MCG/2 ML AMPUL. IV ONE (06:30)
[2017-02-14] MEDS: BUDESONIDE 0.5 MG/2 ML NEBU. NEB SCH (07:59)
[2017-02-14 09:00] VITALS: BP 182/110
[2017-02-14] MEDS ORDERED: DILTIAZEM HCL 240 MG CAP.ER.24H PO SCH (09:00)
[2017-02-14] MEDS: PANTOPRAZOLE 40 MG TABLET. PO SCH (09:15)
[2017-02-14] MEDS: methylPREDNISolone SOD SUCC PF 40 MG/ML VIAL. IV SCH ×2 (09:16→14:00)
[2017-02-14 11:30] VITALS: BP 154/92
--- NOTE | 2017-02-14 13:41 | PDOC ---
PULMONARY PROGRESS NOTES Subjective has sob, has cough, used bipap last night. has post nasal drip, no pain Vitals Vital Signs Date Time Temp Pulse Resp B/P Pulse Ox O2 Delivery O2 Flow Rate FiO2 02/14/17 11:30 98.6 117 22 154/92 96 Nasal Cannula 4.5 98.6 Comments ros as mentioned as above other sys otherwise neg ROS: No Nausea General: Alert, No acute distress HEENT: Other (nc ar perrl) Lungs: Other (decrwease bs) Cardiovascular: S1, S2 Abdomen: Soft, Non-tender Neuro Exam: Alert Extremities: No Edema Skin: Warm Labs Laboratory Tests Test 02/13/17 07:40 02/13/17 20:52 O2 Saturation 96% (92-99) Arterial Blood pH 7.36 (7.35-7.45) Arterial Blood pCO2 at Patient Temp 75mmHg (35-46) Arterial Blood pO2 at Patient Temp 89mmHg (65-108) Arterial Blood HCO3 41mmol/L (21-28) Arterial Blood Base Excess 12mmol/L (-3-3) FiO2 35 bipap Glucose (Fingerstick) 130mg/dL (70-99) Laboratory Tests Test 02/13/17 20:52 Glucose (Fingerstick) 130mg/dL (70-99) Medications Active Scripts Medications Dose Route/Sig Days Date Category Dose Instructions Amlodipine Besylate 5 Mg Tablet 5 Mg PO DAILY 02/11/17 Reported Fluticasone Propionate Nasal [place] (Fluticasone Propionate) 16 Gm [place].susp 2 [place] NS PRN DAILY PRN 12/09/16 Rx Milk Of Magnesia (Magnesium Hydroxide) 2,400 Mg/10 Ml Oral.susp 5,200 Mg PO PRN DAILY PRN 12/07/16 Reported Duoneb 0.5-3(2.5) Mg/3 Ml (Albuterol/Ipratropium) 3 Ml Ampul.neb 3 Ml NEB PRN Q2HR PRN 11/11/16 Reported Prilosec (Omeprazole Magnesium) 10 Mg Suspdr.pkt 20 Mg PO DAILY 11/11/16 Reported Miralax (Polyethylene Glycol 3350) 17 Gm Powd.pack 1 Packet PO DAILY PRN 11/11/16 Reported Symbicort 160-4.5 Mcg Inhaler (Budesonide/Formoterol Fumarate) 10.2 Gm Hfa.aer.ad 2 Puff IH BID 11/11/16 Reported Spironolactone 25 Mg Tablet 1 Tab PO DAILY 11/11/16 Reported Prednisone 10 Mg Tablet 10 Mg PO UD 11/11/16 Reported Take 3 tablets by mouth twice a day for 3 days, then take 2 tablets by mouth twice a day for 3 days, then take 1 tablet by mouth twice a day for 3 days, then take 1 tablet by mouth daily x 3 days, then stop. Oxycodone Hcl 20 Mg Tablet 20 Mg PO PRN QID PRN 06/13/16 Reported Bisacodyl 5 Mg Tablet.dr 5 Mg PO DAILY06 06/13/16 Reported Clonidine Hcl 0.3 Mg Tablet 0.3 Mg PO TID 12/28/13 Reported Impression . 1. Acute on chronic hypoxemic hypercapnic respiratory failure. 2. Acute exacerbation of chronic obstructive pulmonary disease. 3. Noncompliance with home BiPAP. 4. Chest x-ray revealing chronic changes. No evidence of pneumonia. 5. allergic rhinitis Plan . 1. prn BiPAP. 2. Steroids. 3. No need for antibiotics. 4. start bronchodilators qid 5. add singulair ok with discharge home TAVON PLATT MD Feb 14, 2017 13:41
[2017-02-14] MEDS ORDERED: IPRATRPIUM/ALBUTEROL 0.5/2.5MG 3 ML NEBU. NEB SCH (16:00)
[2017-02-14] MEDS ORDERED: MONTELUKAST SODIUM 10 MG TABLET. PO SCH (21:00)
== END 2017-02-14 14:40 | disposition home health service (06) | DRG 189 ==
LOC: ER 16:16 → 5 SOUTH 17:41
PROVIDERS: ADMIT Internal Medicine; ATTEND Internal Medicine
PROC: 5A09457 Assistance with Respiratory Ventilation, 24-96 Consecutive Hours, Continuous Positive Airway Pressure (ICD-10-PCS; principal; 2017-02-14)
DX: J96.22 Acute and chronic respiratory failure with hypercapnia (principal); J44.1 Chronic obstructive pulmonary disease with (acute) exacerbation; E46 Unspecified protein-calorie malnutrition; Z68.1 Body mass index [BMI] 19.9 or less, adult; I13.10 Hypertensive heart and chronic kidney disease without heart failure, with stage 1 through stage 4 chronic kidney disease, or unspecified chronic kidney disease; J30.9 Allergic rhinitis, unspecified; M19.90 Unspecified osteoarthritis, unspecified site; N18.9 Chronic kidney disease, unspecified; R32 Unspecified urinary incontinence; Z96.651 Presence of right artificial knee joint; J96.21 Acute and chronic respiratory failure with hypoxia; Z99.81 Dependence on supplemental oxygen; Z91.19 Patient's noncompliance with other medical treatment and regimen; Z90.79 Acquired absence of other genital organ(s); Z87.891 Personal history of nicotine dependence; Z85.46 Personal history of malignant neoplasm of prostate; Z88.8 Allergy status to other drugs, medicaments and biological substances
CPT/HCPCS: 36415; 36600; 71010; 80048; 80053; 81001; 82805; 82947; 83605; 83880; 84484; 85027; 87040; 87804; 93005; 94640; 94660; 94760; 96374; J1160; J2920; J2930; J7030; J7620; 99285-25

== ENCOUNTER 2017-03-10 18:38 | Inpatient (IN) | payer MEDICARE, OTHER ==
[~2017-03-10] VITALS: Ht 195.6 cm; Wt 53.7 kg
[~2017-03-10 18:38] MED LIST changes: +ALPR0.254 PO; +CLON0.5T3 PO; +DILT300C40 PO
[2017-03-10 21:20] LABS: BASO % 0 % (0-3); EOS % 0 % (0-3); HEMATOCRIT 37.9 % (39.0-53.0); HEMOGLOBIN 11.7 g/dL (13.0-17.5); LYMPH # 0.3 x10^3/uL (1.0-4.8); LYMPH % 3 % (24-48); MEAN CORPUSCULAR HEMOGLOBIN 29 pg (25-35); MEAN CORPUSCULAR HGB CONC 31 g/dL (31-37); MEAN CORPUSCULAR VOLUME 93 fL (79-100); MONO % 3 % (0-9); NEUT % 94 % (31-73); PLATELET COUNT 187 x10^3/uL (140-400); RED BLOOD COUNT 4.09 x10^6/uL (4.30-5.70); RED CELL DISTRIBUTION WIDTH 17.1 % (11.5-14.5); WHITE BLOOD COUNT 10.2 x10^3/uL (4.0-11.0)
[2017-03-10 21:25] LABS: ANION GAP 1 (6-14); BLOOD UREA NITROGEN 20 mg/dL (8-26); CALCIUM 9.4 mg/dL (8.5-10.1); CARBON DIOXIDE > 45 mmol/L (21-32); CHLORIDE 93 mmol/L (98-107); CREATININE 0.7 mg/dL (0.7-1.3); GFR 133.8; GLUCOSE 217 mg/dL (70-99); POTASSIUM 4.7 mmol/L (3.5-5.1); SODIUM 139 mmol/L (136-145)
[2017-03-10 21:51] LABS: ANISOCYTOSIS SLIGHT; HYPOCHROMIA SLIGHT; PLT ESTIMATE ADEQUATE (ADEQUATE)
[2017-03-10] MEDS ORDERED: IPRATRPIUM/ALBUTEROL 0.5/2.5MG 3 ML NEBU. NEB ONE (22:00)
[2017-03-10] MEDS ORDERED: ACETAMINOPHEN 325 MG TABLET. PO PRN (22:30)
[2017-03-10] MEDS ORDERED: ONDANSETRON PF 4 MG/2 ML VIAL. IV PRN (22:30)
--- NOTE | 2017-03-10 22:35 | PHYS DOC ---
Past Medical History Past Medical History: COPD, Hypertension, Renal Disease, Other Additional Past Medical Histor: generalized weakness, malnurished Past Surgical History: Knee Replacement, Other Additional Past Surgical Histo: PROSTATE, WRIST, R KNEE Additional Information: Pt reports he quit about 8 months ago and was a 1.5 PPD smoker. Alcohol Use: Occasionally Drug Use: None Adult General Chief Complaint Chief Complaint: SHORTNESS OF BREATH HPI HPI This is a 71-year-old male who was brought in by EMS after his family is concerned about him becoming more short of breath at home. Patient is normally requiring 4 L of oxygen at home for his history of COPD. He has recent hospital admission for acute on chronic respiratory failure that required BiPAP therapy. The note from his last hospital stay indicates that he is DNR status. He denies any chest pain at this time. His admit to some mild shortness of breath but does not have any other complaints. He does seem alert and oriented to place and time. There is no family at bedside to provide any other history. Review of Systems Review of Systems Constitutional: Denies fever or chills [] Eyes: Denies change in visual acuity, redness, or eye pain [] HENT: Denies nasal congestion or sore throat [] Respiratory: Denies cough, has shortness of breath [] Cardiovascular: No additional information not addressed in HPI [] GI: Denies abdominal pain, nausea, vomiting, bloody stools or diarrhea [] : Denies dysuria or hematuria [] Musculoskeletal: Denies back pain or joint pain [] Integument: Denies rash or skin lesions [] Neurologic: Denies headache, focal weakness or sensory changes [] Endocrine: Denies polyuria or polydipsia [] Current Medications Current Medications Current Medications Medications (Trade) Dose Ordered Sig/Pierre Start Time Stop Time Status Last Admin Dose Admin Albuterol/ Ipratropium (Duoneb) 3 ml 1X ONCE 03/10/17 22:00 03/10/17 22:01 DC Allergies Allergies Allergies Coded Allergies Type Severity Reaction Last Updated Verified lisinopril Allergy Intermediate 06/11/16 Yes Physical Exam Physical Exam Constitutional: Well developed, well nourished, no acute distress, non-toxic appearance. [] HENT: Normocephalic, atraumatic, bilateral external ears normal, oropharynx moist, no oral exudates, nose normal. [] Eyes: PERRLA, EOMI, conjunctiva normal, no discharge. [] Neck: Normal range of motion, no tenderness, supple, no stridor. [] Cardiovascular:Heart rate regular rhythm, no murmur [] Lungs & Thorax: Bilateral breath sounds clear to auscultation [] Abdomen: Bowel sounds normal, soft, no tenderness, no masses, no pulsatile masses. [] Skin: Warm, dry, no erythema, no rash. [] Back: No tenderness, no CVA tenderness. [] Extremities: No tenderness, no cyanosis, no clubbing, ROM intact, no edema. [] Neurologic: Alert and oriented X 3, normal motor function, normal sensory function, no focal deficits noted. [] Psychologic: Affect normal, judgement normal, mood normal. [] Current Patient Data Vital Signs Vital Signs Date Time Temp Pulse Resp B/P Pulse Ox O2 Delivery O2 Flow Rate FiO2 03/10/17 22:15 92 20 135/73 100 Nasal Cannula 4 03/10/17 18:49 98.7 98.7 Lab Values Laboratory Tests Test 03/10/17 21:00 03/10/17 21:40 White Blood Count 10.2x10^3/uL (4.0-11.0) Red Blood Count 4.09x10^6/uL (4.30-5.70) L Hemoglobin 11.7g/dL (13.0-17.5) L Hematocrit 37.9% (39.0-53.0) L Mean Corpuscular Volume 93fL (79-100) Mean Corpuscular Hemoglobin 29pg (25-35) Mean Corpuscular Hemoglobin Concent 31g/dL (31-37) Red Cell Distribution Width 17.1% (11.5-14.5) H Platelet Count 187x10^3/uL (140-400) Neutrophils (%) (Auto) 94% (31-73) H Lymphocytes (%) (Auto) 3% (24-48) L Monocytes (%) (Auto) 3% (0-9) Eosinophils (%) (Auto) 0% (0-3) Basophils (%) (Auto) 0% (0-3) Neutrophils # (Auto) 9.6x10^3uL (1.8-7.7) H Lymphocytes # (Auto) 0.3x10^3/uL (1.0-4.8) L Monocytes # (Auto) 0.3x10^3/uL (0.0-1.1) Eosinophils # (Auto) 0.0x10^3/uL (0.0-0.7) Basophils # (Auto) 0.0x10^3/uL (0.0-0.2) Segmented Neutrophils % 88% (35-66) H Band Neutrophils % 4% (0-9) Lymphocytes % 4% (24-48) L Monocytes % 4% (0-10) Platelet Estimate Adequate (ADEQUATE) Hypochromasia Slight Anisocytosis Slight Sodium Level 139mmol/L (136-145) Potassium Level 4.7mmol/L (3.5-5.1) Chloride Level 93mmol/L (98-107) L Carbon Dioxide Level > 45mmol/L (21-32) H Anion Gap 1 (6-14) L Blood Urea Nitrogen 20mg/dL (8-26) Creatinine 0.7mg/dL (0.7-1.3) Estimated GFR (Cockcroft-Gault) 133.8 Glucose Level 217mg/dL (70-99) H Calcium Level 9.4mg/dL (8.5-10.1) Troponin I Quantitative < 0.017ng/mL (0.000-0.055) JE-Nrg-B-Type Natriuretic Peptide 104pg/mL (0-124) O2 Saturation 97% (92-99) Arterial Blood pH 7.32 (7.35-7.45) L Arterial Blood pCO2 at Patient Temp 97mmHg (35-46) *H Arterial Blood pO2 at Patient Temp 114mmHg (65-108) H Arterial Blood HCO3 49mmol/L (21-28) H Arterial Blood Base Excess 18mmol/L (-3-3) H FiO2 35 Laboratory Tests 03/10/17 21:00 Laboratory Tests 03/10/17 21:00 EKG EKG EKG as interpreted by me shows a sinus rhythm with rate of 99 bpm. There are no obvious ischemic findings. Intervals are normal. Radiology/Procedures Radiology/Procedures One view of the chest as interpreted by me shows findings consistent with COPD but no other obvious finding. Course & Med Decision Making Course & Med Decision Making Pertinent Labs and Imaging studies reviewed. (See chart for details) This 71-year-old male with worsening respiratory status had a blood gas that demonstrated acute on chronic respiratory failure with a pH of 7.32 and a CO2 level of 97 and his bicarbonate level was elevated. His blood gas is consistent with an ongoing worsening respiratory acidosis that is being compensated metabolically. Patient was placed on BiPAP upon arrival and after 30 minutes had a blood gas redrawn that is much improved with a pH 7.43 and a PCO2 level of 70. I'll be admitting him on continued BiPAP therapy for acute on chronic respiratory failure likely secondary to COPD exacerbation. Chest film shows changes of COPD. Bloodwork is otherwise unremarkable. His EKG and cardiac enzymes were negative for any acute abnormalities. His case was discussed with the hospitalist, Dr. Soto, who agreed to accept the patient for further evaluation with pulmonology consult as well. Dragon Disclaimer Dragon Disclaimer This electronic medical record was generated, in whole or in part, using a voice recognition dictation system. Departure Departure Impression: Primary Impression: Acute and chronic respiratory failure ([id number]) Additional Impression: COPD exacerbation Disposition: 09 ADMITTED INPATIENT Admitting Physician: Mahi Soto Condition: STABLE Referrals: LEISA HARRISON MD (PCP) Problem Qualifiers BORIS BECKHAM DO Mar 10, 2017 22:35
--- NOTE | 2017-03-10 23:17 | ACF ---
Admission Forms Criteria COPD Clinical Indications for Admission to Inpatient Care (Place 'X' for any and all applicable criteria): Admission is indicated for ANY ONE of the following (1)(2)(3): [ ]I. Acute exacerbation by high-risk comorbidity (e.g., pneumonia, dysrhythmia, heart failure, pleural effusion, pneumothorax) or severe underlying COPD (e.g., steroid dependent) [X]II. Inpatient admission required rather than observation care (see Chronic Obstructive Pulmonary Disease: Observation Care) because of ANY ONE of the following: [X]a) New or pre-existing signs or symptoms of COPD (eg, dyspnea or Tachypnea at rest or with minimal activity) that persist despite outpatient and observation care treatment [ ]b) New-onset hypoxemia (room air SaO2 less than 90%, PO2 less than 60 mm Hg (8.0 kPa)) that persists despite outpatient and observation care treatment [ ]c) Worsening of pre-existing hypoxemia (eg, new or increased requirement for supplemental oxygen to maintain oxygenation at baseline level) that persists despite outpatient and observation care treatment, with oxygen treatment needs performable only in acute inpatient setting [ ]d) Hypercarbia (PCO2 greater than 40 mm Hg (5.3 kPa))-induced respiratory acidosis (pH less than 7.35) that persists despite outpatient and observation care treatment [ ]e) Supplemental oxygen or respiratory treatments for over 24 hours that are performable only in acute inpatient setting [ ]f) Chest tube placement with active evacuation (e.g., suction, drainage) (5) [ ]g) Other condition, treatment or monitoring requiring inpatient admission [ ]III. Planned invasive surgical or diagnostic procedures requiring acute- care hospitalization [ ]IV. Acute respiratory failure (e.g., uncompensated hypercarbia, severe hypoxemia) [ ]V. Severe comorbid condition (e.g., severe steroid myopathy, acute vertebral fracture) that has acutely worsened pulmonary function [ ]. Confusion state, lethargy, obtundation, stupor or coma Extended stay beyond goal length of stay may be needed for (31)(32): [ ]a ) Respiratory Failure. [ ]b) Severe or persisting hypoxemia or hypercarbia [ ]c) Severe or persistent dyspnea [ ]d) Comorbidities (e.g. chronic heart failure, atrial fibrillation with rapid response, pneumonia) [ ]e) Malnutrition The original [facility] content created by [facility] has been revised. The portions of the content which have been revised are identified through the use of italic text or in bold, and [facility] has neither reviewed nor approved the modified material. All other unmodified content is copyright [facility]. Please see references footnoted in the original [facility] edition 2016 Admission Criteria Met?: Yes KAYY PENNINGTON. Mar 10, 2017 23:17
[2017-03-10 23:20] LABS: HCO3 ABG 49 mmol/L (21-28); PH ABG 7.32 (7.35-7.45); PO2 ABG 114 mmHg (65-108); SAT O2 ABG 97 % (92-99)
[2017-03-10 23:23] LABS: PCO2 ABG 97 mmHg (35-46)
[2017-03-10 23:24] LABS: FIO2 ABG 35
[2017-03-10 23:55] VITALS: BP 132/83
[2017-03-10 23:57] VITALS: BP 132/83
[2017-03-11 02:59] VITALS: BP 121/71
[2017-03-11 06:45] LABS: BASO # 0.2 x10^3/uL (0.0-0.2); BASO % 2 % (0-3); EOS % 1 % (0-3); HEMATOCRIT 38.5 % (39.0-53.0); HEMOGLOBIN 11.6 g/dL (13.0-17.5); LYMPH % 12 % (24-48); MEAN CORPUSCULAR HEMOGLOBIN 28 pg (25-35); MEAN CORPUSCULAR HGB CONC 30 g/dL (31-37); MEAN CORPUSCULAR VOLUME 94 fL (79-100); MONO % 7 % (0-9); NEUT % 79 % (31-73); PLATELET COUNT 165 x10^3/uL (140-400); RED CELL DISTRIBUTION WIDTH 17.4 % (11.5-14.5); WHITE BLOOD COUNT 8.7 x10^3/uL (4.0-11.0)
[2017-03-11 07:00] VITALS: BP 134/85
[2017-03-11 07:09] LABS: BLOOD UREA NITROGEN 16 mg/dL (8-26); CALCIUM 9.3 mg/dL (8.5-10.1); CHLORIDE 97 mmol/L (98-107); CREATININE 0.5 mg/dL (0.7-1.3); GFR 197.2; GLUCOSE 61 mg/dL (70-99); POTASSIUM 4.2 mmol/L (3.5-5.1); SODIUM 144 mmol/L (136-145)
[2017-03-11 07:19] LABS: CARBON DIOXIDE > 45 mmol/L (21-32)
--- NOTE | 2017-03-11 08:51 | EKG ---
[facility] [address] [place] [address] Test Date: 2017-03-10 Test Time: 20:58:38 Pat Name: YAYA BARILLAS Department: Room: 578 1 Gender: M Technical Administrator: : 1945 Requested By: BORIS BECKHAM Order Number: [id number] Reading MD: Yuliya Vieira Measurements Intervals [place] Rate: 99 P: 90 CT: 140 QRS: 85 QRSD: 92 T: 88 QT: 326 QTc: 423 Interpretive Statements SINUS RHYTHM NORMAL ECG RI6.01 Compared to ECG 02/20/2017 10:09:13 T-wave abnormality no longer present Electronically Signed On 03-15-2017 13:04:44 CDT by Yuliya Vieira
[2017-03-11] MEDS ORDERED: NON FORMULARY ITEM (Budesonide/Formoterol Fumarate (Symbicort 160-4.5 Mcg Inhaler) 2 PUFF) IH SCH (09:00)
[2017-03-11] MEDS ORDERED: POLYETHYLENE GLYCOL 3350 17 GM PACKET. PO PRN (09:00)
[2017-03-11] MEDS ORDERED: IPRATRPIUM/ALBUTEROL 0.5/2.5MG 3 ML NEBU. NEB PRN (09:00)
[2017-03-11] MEDS ORDERED: MAGNESIUM HYDROXIDE 2,400 MG/30 ML ORAL.SUSP. PO PRN (09:00)
[2017-03-11] MEDS ORDERED: OXYCODONE IR 5 MG TABLET. PO PRN (09:00)
--- NOTE | 2017-03-11 09:04 | PDOC ---
OBJECTIVE Vital Signs Vital Signs Date Time Temp Pulse Resp B/P Pulse Ox O2 Delivery O2 Flow Rate FiO2 03/11/17 08:00 Nasal Cannula 2.0 03/11/17 07:00 97.9 103 18 134/85 93 Nasal Cannula 2.0 97.9 03/11/17 05:34 BiPAP/CPAP 03/11/17 02:59 97.9 96 20 121/71 94 BiPAP/CPAP 97.9 03/11/17 01:35 BiPAP/CPAP 03/10/17 23:57 97.9 101 22 132/83 93 Nasal Cannula 5.0 97.9 03/10/17 23:55 97.9 101 22 132/83 93 Nasal Cannula 5.0 97.9 03/10/17 23:37 Nasal Cannula 5.0 03/10/17 23:05 96 BiPAP/CPAP 03/10/17 22:45 104 20 129/85 100 BiPAP/CPAP 03/10/17 22:15 92 20 135/73 100 Nasal Cannula 4 03/10/17 21:45 92 20 135/72 100 Nasal Cannula 4 03/10/17 21:15 94 138/74 100 Nasal Cannula 5 03/10/17 20:45 95 128/61 03/10/17 20:15 94 125/58 03/10/17 19:45 108 135/74 03/10/17 19:15 99 18 145/72 95 Nasal Cannula 5 03/10/17 18:49 98.7 107 22 150/73 100 Nasal Cannula 5 98.7 I & O Intake and Output 03/11/17 07:00 Intake Total 100 ml Balance 100 ml Intake Oral 100 ml ASSESSMENT/PLAN Assessment/Plan [id number] H&P dictated Problems: COMMENT Lab Laboratory Tests Test 03/10/17 21:00 03/10/17 21:40 03/11/17 06:10 White Blood Count 10.2x10^3/uL (4.0-11.0) 8.7x10^3/uL (4.0-11.0) Red Blood Count 4.09x10^6/uL (4.30-5.70) 4.10x10^6/uL (4.30-5.70) Hemoglobin 11.7g/dL (13.0-17.5) 11.6g/dL (13.0-17.5) Hematocrit 37.9% (39.0-53.0) 38.5% (39.0-53.0) Mean Corpuscular Volume 93fL (79-100) 94fL (79-100) Mean Corpuscular Hemoglobin 29pg (25-35) 28pg (25-35) Mean Corpuscular Hemoglobin Concent 31g/dL (31-37) 30g/dL (31-37) Red Cell Distribution Width 17.1% (11.5-14.5) 17.4% (11.5-14.5) Platelet Count 187x10^3/uL (140-400) 165x10^3/uL (140-400) Neutrophils (%) (Auto) 94% (31-73) 79% (31-73) Lymphocytes (%) (Auto) 3% (24-48) 12% (24-48) Monocytes (%) (Auto) 3% (0-9) 7% (0-9) Eosinophils (%) (Auto) 0% (0-3) 1% (0-3) Basophils (%) (Auto) 0% (0-3) 2% (0-3) Neutrophils # (Auto) 9.6x10^3uL (1.8-7.7) 6.8x10^3uL (1.8-7.7) Lymphocytes # (Auto) 0.3x10^3/uL (1.0-4.8) 1.0x10^3/uL (1.0-4.8) Monocytes # (Auto) 0.3x10^3/uL (0.0-1.1) 0.6x10^3/uL (0.0-1.1) Eosinophils # (Auto) 0.0x10^3/uL (0.0-0.7) 0.0x10^3/uL (0.0-0.7) Basophils # (Auto) 0.0x10^3/uL (0.0-0.2) 0.2x10^3/uL (0.0-0.2) Segmented Neutrophils % 88% (35-66) Band Neutrophils % 4% (0-9) Lymphocytes % 4% (24-48) Monocytes % 4% (0-10) Platelet Estimate Adequate (ADEQUATE) Hypochromasia Slight Anisocytosis Slight Sodium Level 139mmol/L (136-145) 144mmol/L (136-145) Potassium Level 4.7mmol/L (3.5-5.1) 4.2mmol/L (3.5-5.1) Chloride Level 93mmol/L (98-107) 97mmol/L (98-107) Carbon Dioxide Level > 45mmol/L (21-32) > 45mmol/L (21-32) Anion Gap 1 (6-14) (6-14) Blood Urea Nitrogen 20mg/dL (8-26) 16mg/dL (8-26) Creatinine 0.7mg/dL (0.7-1.3) 0.5mg/dL (0.7-1.3) Estimated GFR (Cockcroft-Gault) 133.8 197.2 Glucose Level 217mg/dL (70-99) 61mg/dL (70-99) Calcium Level 9.4mg/dL (8.5-10.1) 9.3mg/dL (8.5-10.1) Troponin I Quantitative < 0.017ng/mL (0.000-0.055) NT-Yby-A-Type Natriuretic Peptide 104pg/mL (0-124) O2 Saturation 97% (92-99) Arterial Blood pH 7.32 (7.35-7.45) Arterial Blood pCO2 at Patient Temp 97mmHg (35-46) Arterial Blood pO2 at Patient Temp 114mmHg (65-108) Arterial Blood HCO3 49mmol/L (21-28) Arterial Blood Base Excess 18mmol/L (-3-3) FiO2 35 ERICH BLACK MD Mar 11, 2017 09:04
[2017-03-11] MEDS ORDERED: ALBUTEROL SULFATE 2.5 MG/3 ML NEBU. NEB PRN (09:15)
--- NOTE | 2017-03-11 09:52 | RAD ---
Portable chest, 03/10/2017: History: Chest pain and cough Comparison is made to a study from 02/24/2017. The heart size is normal. There is emphysematous changes in the lungs with scattered parenchymal scars. No acute infiltrate is seen. There is no evidence of pleural fluid or pneumothorax. IMPRESSION: 1. Emphysema with parenchymal scarring. 2. No acute cardiopulmonary abnormality is detected.
[2017-03-11 10:10] LABS: FIO2 ABG 40; HCO3 ABG 46 mmol/L (21-28); PCO2 ABG 71 mmHg (35-46); PH ABG 7.43 (7.35-7.45); PO2 ABG 70 mmHg (65-108); SAT O2 ABG 94 % (92-99)
[2017-03-11] MEDS: BISACODYL 5 MG TABLET.DR. PO SCH (10:13)
[2017-03-11] MEDS: DILTIAZEM HCL 300 MG CAP.ER.24H. PO SCH (10:13)
[2017-03-11] MEDS: CLONAZEPAM 0.5 MG TABLET PO SCH ×2 (10:13→20:44)
[2017-03-11] MEDS: PREDNISONE 20 MG TABLET PO SCH (10:13)
[2017-03-11] MEDS: PANTOPRAZOLE 40 MG TABLET.DR. PO SCH (10:13)
[2017-03-11 10:26] VITALS: BP 121/79
--- NOTE | 2017-03-11 10:53 | CONS ---
DATE OF CONSULTATION: ATTENDING PHYSICIAN: Dr. Mahi Soto. REASON FOR CONSULTATION: COPD exacerbation and respiratory failure. HISTORY OF PRESENT ILLNESS: The patient is a 71-year-old male, who is very well known to ____. 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 He was recently hospitalized and was discharged from [facility]. He was brought to the hospital with increasing shortness of breath. Normally, he is on 4 liters on a 24-hour basis. His arterial blood gases were consistent with sjfcq-sl-ydncjzm respiratory failure with a pH of 7.32, pCO2 of 97, and a pO2 114 on 35% FiO2. The patient states that he does not have a cough. No chest pain. No fever, no chills. He has no nausea, vomiting, or diarrhea. No further weight loss. He was living with his sister at home. Chest x-ray did not reveal any acute infiltrates. I have been asked to see him for further evaluation. He is currently on BiPAP. PAST MEDICAL HISTORY: Significant for end-stage COPD with chronic respiratory failure, history of hypertension, renal disease, generalized weakness, and malnourishment. PAST SURGICAL HISTORY: Knee replacement, ____ wrist and right knee surgery. ALLERGIES: LISINOPRIL. MEDICATIONS: Reviewed as listed in the MRAD, including nebulizer treatments and Pulmicort. REVIEW OF SYSTEMS: Twelve-point systems obtained, pertinent positives discussed in the history of present illness, otherwise noncontributory. All systems that were negative were reviewed as well. SOCIAL HISTORY: Quit about 8 months ago, before that smoked 1-1/2 pack per day. PHYSICAL EXAMINATION: GENERAL: He is awake, following commands, currently on BiPAP. VITAL SIGNS: Blood pressure is stable, pulse ox 93% on BiPAP at 40%, and is afebrile. HEENT: Sclerae nonicteric. NECK: Supple. LUNGS: Diminished breath sounds with bilateral poor air entry. CARDIOVASCULAR: Regular rate and rhythm. ABDOMEN: Soft, nontender. EXTREMITIES: With no pitting edema. LABORATORY DATA: Labs were reviewed. ABGs were discussed in the history of present illness. BUN 16, creatinine 0.5. White cell count 8.7, hemoglobin 11.6 and platelets are 165. IMPRESSION: 1. Baelh-pm-iesyarw hypercapnic respiratory failure secondary to acute exacerbation of chronic obstructive pulmonary disease. 2. 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 3. No definite pneumonia seen on the chest x-ray. RECOMMENDATIONS: 1. I have adjusted the BiPAP settings by increasing the iPAP and reducing the FIO2. Would avoid hyperoxia. 2. Follow ABGs in a few hours. 3. Continue nebulizer treatments. 4. Continue oral prednisone. 5. Continue steroid nebulizer. 6. We will continue to follow up. JOHN BAIRES MD DR: LÓPEZ/sunny JOB#: [id number] / [id number]
[2017-03-11] MEDS: ALBUTEROL SULFATE 2.5 MG/3 ML NEBU. NEB SCH ×4 (11:20→18:29)
[2017-03-11] MEDS: BUDESONIDE 0.5 MG/2 ML NEBU. NEB SCH ×2 (11:21→18:29)
--- NOTE | 2017-03-11 12:41 | HP ---
ADMIT DATE: 03/10/2017 LOCATION: Room# 578. HISTORY OF PRESENT ILLNESS: The patient is a 71-year-old gentleman who is known to have chronic respiratory failure and does have multiple admissions due to COPD and respiratory failure, who was brought by the EMS due to increasing shortness of breath and difficulty breathing. He was evaluated in the Emergency Room. His ABGs showed very high CO2 at 93%. He does have a DNR status and does not want to be intubated. He is having more shortness of breath and coughing. He is still on tapering steroids since his last admission. He states that he has been using his BiPAP at home, but in the past, it was suspected that his respiratory failure worsened when he does not use a BiPAP. He denies fever or chills. He is very cachectic and malnourished chronically. PAST MEDICAL HISTORY: Significant for hypertension, anxiety, severe emphysema, COPD, chronic respiratory failure, prostate cancer, status post prostatectomy. He is on oxygen at home, normally, at 4-1/2 liters. He does have history of incontinence, osteoarthritis, and history of right knee replacement. FAMILY HISTORY: Positive for diabetes. SOCIAL HISTORY: He used to smoke for many years. He had his flu shot and pneumonia vaccine. He denies using drugs or alcohol. REVIEW OF SYSTEMS: CONSTITUTIONAL: Denies fever or chills. He is malnourished and has not been able to gain weight. EYES: Denies visual changes. HEENT: Denies nasal congestion or sore throat. RESPIRATORY: Denies cough. He does have chronic shortness of breath. CARDIOVASCULAR: Denies chest pain. GASTROINTESTINAL: Denies abdominal pain, nausea, vomiting, diarrhea, or constipation. GENITOURINARY: Denies dysuria or hematuria. He does have incontinence. MUSCULOSKELETAL: He does have a chronic back pain and osteoarthritis. No acute complaints. NEUROLOGY: He denies headache. He does not have any focal weakness. He moves all his extremities and does appear alert and oriented. PHYSICAL EXAMINATION: GENERAL: He is in no acute distress. He is malnourished looking, appears to be short of breath. HEENT: Normocephalic, atraumatic. His mucous membranes are slightly dry. Eyes: With normal color conjunctiva and no discharge. NECK: Supple, with no redness or stridor. HEART: Mildly tachycardic. LUNGS: With poor air movement, a few scattered wheezes, decreased breath sounds. ABDOMEN: Soft, nontender, no organomegaly. EXTREMITIES: No edema, clubbing, or cyanosis. SKIN: Warm and dry. He does have a dry skin and peeling in some parts of his body. NEUROLOGY: He is alert and oriented. Moves all his extremities. IMAGING DATA: His chest x-ray shows emphysematous changes with no acute problems. IMPRESSION: 1. Kjjee-ky-icxfcpy hypercapnic respiratory failure. 2. Chronic obstructive pulmonary disease exacerbation. 3. Hypertension, hypertensive cardiovascular disease. 4. History of prostate cancer. 5. Osteoarthritis. 6. Malnourishment. ERICH BLACK MD DR: SHAY/sunny JOB#: [id number] / [id number]
[2017-03-11 14:56] VITALS: BP 126/82
[2017-03-11 19:00] VITALS: BP 120/78
[2017-03-11 22:28] VITALS: BP 124/60
[2017-03-12 03:02] VITALS: BP 146/77
[2017-03-12] MEDS: BISACODYL 5 MG TABLET.DR. PO SCH (05:46)
[2017-03-12 07:00] VITALS: BP 110/74
[2017-03-12] MEDS: DILTIAZEM HCL 300 MG CAP.ER.24H. PO SCH (07:52)
[2017-03-12] MEDS: PREDNISONE 20 MG TABLET PO SCH (07:52)
[2017-03-12] MEDS: CLONAZEPAM 0.5 MG TABLET PO SCH ×2 (07:52→20:50)
[2017-03-12] MEDS: PANTOPRAZOLE 40 MG TABLET.DR. PO SCH (07:53)
--- NOTE | 2017-03-12 08:06 | PDOC ---
SUBJECTIVE Subjective still SOB, chronic resp failure OBJECTIVE Objective vitals stable Vital Signs Vital Signs Date Time Temp Pulse Resp B/P Pulse Ox O2 Delivery O2 Flow Rate FiO2 03/12/17 07:52 81 110/74 03/12/17 07:00 98.9 81 16 110/74 99 3.0 98.9 03/12/17 03:02 97.5 86 18 146/77 100 Nasal Cannula 3.0 97.5 03/11/17 22:28 97.7 95 18 124/60 97 Nasal Cannula 3.0 97.7 03/11/17 19:54 Nasal Cannula 3.0 03/11/17 19:00 97.9 103 18 120/78 99 Nasal Cannula 3.0 97.9 03/11/17 18:29 Nasal Cannula 3.0 03/11/17 15:37 Nasal Cannula 3.0 03/11/17 14:56 97.7 108 18 126/82 94 Nasal Cannula 3.0 97.7 03/11/17 11:25 97 Nasal Cannula 3.0 03/11/17 10:26 97.9 109 18 121/79 97 Nasal Cannula 3.0 97.9 03/11/17 10:13 103 134/85 I & O Intake and Output 03/12/17 07:00 Intake Total 660 ml Output Total 500 ml Balance 160 ml Intake Oral 660 ml Output Urine Total 500 ml # Voids 2 PHYSICAL EXAM Physical Exam still decrease BS and poor air movement otherwise no change ASSESSMENT/PLAN Assessment/Plan continue current Tx Problems: ERICH BLACK MD Mar 12, 2017 08:06
[2017-03-12] MEDS: ALBUTEROL SULFATE 2.5 MG/3 ML NEBU. NEB SCH ×4 (08:39→19:23)
[2017-03-12] MEDS: BUDESONIDE 0.5 MG/2 ML NEBU. NEB SCH ×2 (08:39→19:23)
--- NOTE | 2017-03-12 08:59 | PDOC ---
PULMONARY PROGRESS NOTES Subjective feels better Vitals Vital Signs Date Time Temp Pulse Resp B/P Pulse Ox O2 Delivery O2 Flow Rate FiO2 03/12/17 08:39 98 Nasal Cannula 3.0 03/12/17 07:52 81 110/74 03/12/17 07:00 98.9 16 98.9 General: Alert, No acute distress HEENT: Other Lungs: Other (decrease bs) Cardiovascular: S1, S2 Abdomen: Soft, Non-tender Neuro Exam: Alert Extremities: No Edema Skin: Warm Labs Laboratory Tests Test 03/10/17 21:00 03/10/17 21:40 03/10/17 23:15 03/11/17 06:10 White Blood Count 10.2x10^3/uL (4.0-11.0) 8.7x10^3/uL (4.0-11.0) Red Blood Count 4.09x10^6/uL (4.30-5.70) 4.10x10^6/uL (4.30-5.70) Hemoglobin 11.7g/dL (13.0-17.5) 11.6g/dL (13.0-17.5) Hematocrit 37.9% (39.0-53.0) 38.5% (39.0-53.0) Mean Corpuscular Volume 93fL (79-100) 94fL (79-100) Mean Corpuscular Hemoglobin 29pg (25-35) 28pg (25-35) Mean Corpuscular Hemoglobin Concent 31g/dL (31-37) 30g/dL (31-37) Red Cell Distribution Width 17.1% (11.5-14.5) 17.4% (11.5-14.5) Platelet Count 187x10^3/uL (140-400) 165x10^3/uL (140-400) Neutrophils (%) (Auto) 94% (31-73) 79% (31-73) Lymphocytes (%) (Auto) 3% (24-48) 12% (24-48) Monocytes (%) (Auto) 3% (0-9) 7% (0-9) Eosinophils (%) (Auto) 0% (0-3) 1% (0-3) Basophils (%) (Auto) 0% (0-3) 2% (0-3) Neutrophils # (Auto) 9.6x10^3uL (1.8-7.7) 6.8x10^3uL (1.8-7.7) Lymphocytes # (Auto) 0.3x10^3/uL (1.0-4.8) 1.0x10^3/uL (1.0-4.8) Monocytes # (Auto) 0.3x10^3/uL (0.0-1.1) 0.6x10^3/uL (0.0-1.1) Eosinophils # (Auto) 0.0x10^3/uL (0.0-0.7) 0.0x10^3/uL (0.0-0.7) Basophils # (Auto) 0.0x10^3/uL (0.0-0.2) 0.2x10^3/uL (0.0-0.2) Segmented Neutrophils % 88% (35-66) Band Neutrophils % 4% (0-9) Lymphocytes % 4% (24-48) Monocytes % 4% (0-10) Platelet Estimate Adequate (ADEQUATE) Hypochromasia Slight Anisocytosis Slight Sodium Level 139mmol/L (136-145) 144mmol/L (136-145) Potassium Level 4.7mmol/L (3.5-5.1) 4.2mmol/L (3.5-5.1) Chloride Level 93mmol/L (98-107) 97mmol/L (98-107) Carbon Dioxide Level > 45mmol/L (21-32) > 45mmol/L (21-32) Anion Gap 1 (6-14) (6-14) Blood Urea Nitrogen 20mg/dL (8-26) 16mg/dL (8-26) Creatinine 0.7mg/dL (0.7-1.3) 0.5mg/dL (0.7-1.3) Estimated GFR (Cockcroft-Gault) 133.8 197.2 Glucose Level 217mg/dL (70-99) 61mg/dL (70-99) Calcium Level 9.4mg/dL (8.5-10.1) 9.3mg/dL (8.5-10.1) Troponin I Quantitative < 0.017ng/mL (0.000-0.055) IO-Qjz-E-Type Natriuretic Peptide 104pg/mL (0-124) O2 Saturation 97% (92-99) 94% (92-99) Arterial Blood pH 7.32 (7.35-7.45) 7.43 (7.35-7.45) Arterial Blood pCO2 at Patient Temp 97mmHg (35-46) 71mmHg (35-46) Arterial Blood pO2 at Patient Temp 114mmHg (65-108) 70mmHg (65-108) Arterial Blood HCO3 49mmol/L (21-28) 46mmol/L (21-28) Arterial Blood Base Excess 18mmol/L (-3-3) 18mmol/L (-3-3) FiO2 35 40 Medications Active Scripts Medications Dose Route/Sig Days Date Category Dose Instructions Clonazepam 0.5 Mg Tablet 0.5 Mg PO BID 30 03/01/17 Rx Prednisone 20 Mg Tablet 30 Mg PO DAILY 30 03/01/17 Rx one and half tab for 3 day then 1tab for 3 day then half tab daily till seen Dr. Edie Olguin Xt (Diltiazem Hcl) 300 Mg Cap.er.24h 300 Mg PO DAILY 02/22/17 Reported Fluticasone Propionate Nasal [place] (Fluticasone Propionate) 16 Gm [place].susp 2 [place] NS PRN DAILY PRN 12/09/16 Rx Milk Of Magnesia (Magnesium Hydroxide) 2,400 Mg/10 Ml Oral.susp 5,200 Mg PO PRN DAILY PRN 12/07/16 Reported Duoneb 0.5-3(2.5) Mg/3 Ml (Albuterol/Ipratropium) 3 Ml Ampul.neb 3 Ml NEB PRN Q2HR PRN 11/11/16 Reported Prilosec (Omeprazole Magnesium) 10 Mg Suspdr.pkt 20 Mg PO DAILY 11/11/16 Reported Miralax (Polyethylene Glycol 3350) 17 Gm Powd.pack 1 Packet PO DAILY PRN 11/11/16 Reported Symbicort 160-4.5 Mcg Inhaler (Budesonide/Formoterol Fumarate) 10.2 Gm Hfa.aer.ad 2 Puff IH BID 11/11/16 Reported Oxycodone Hcl 20 Mg Tablet 20 Mg PO PRN QID PRN 06/13/16 Reported Bisacodyl 5 Mg Tablet.dr 5 Mg PO DAILY06 06/13/16 Reported Impression . 1. Xawpl-yc-fvhxkxg hypercapnic respiratory failure secondary to acute exacerbation of chronic obstructive pulmonary disease. 2. 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 3. No definite pneumonia seen on the chest x-ray. Plan . 1. ABG compensated .Would avoid hyperoxia. 2. clinically better 3. Continue nebulizer treatments. 4. Continue oral prednisone. 5. Continue steroid nebulizer. 6. Needs rehab JOHN BAIRES MD Mar 12, 2017 08:59
[2017-03-12 11:00] VITALS: BP 112/70
[2017-03-12 15:00] VITALS: BP 119/71
[2017-03-12 19:00] VITALS: BP 153/82
[2017-03-12 23:15] VITALS: BP 106/60
[2017-03-13 03:00] VITALS: BP 102/59
[2017-03-13] MEDS: BISACODYL 5 MG TABLET.DR. PO SCH (06:26)
[2017-03-13 07:00] VITALS: BP 135/83
--- NOTE | 2017-03-13 08:52 | PDOC ---
SUBJECTIVE Subjective tackypnic this AM more than usual OBJECTIVE Vital Signs Vital Signs Date Time Temp Pulse Resp B/P Pulse Ox O2 Delivery O2 Flow Rate FiO2 03/13/17 07:00 97.8 93 18 135/83 100 Nasal Cannula 97.8 03/13/17 03:00 97.6 84 18 102/59 98 BiPAP/CPAP 97.6 03/13/17 01:00 BiPAP/CPAP 03/12/17 23:15 98.3 91 16 106/60 97 Room Air 98.3 03/12/17 20:00 Nasal Cannula 3.0 03/12/17 19:23 Nasal Cannula 3.0 03/12/17 19:00 97.6 98 20 153/82 96 Nasal Cannula 2.0 97.6 03/12/17 15:33 Nasal Cannula 3.0 03/12/17 15:00 98.2 87 14 119/71 90 Nasal Cannula 3.0 98.2 03/12/17 11:35 Nasal Cannula 3.0 03/12/17 11:00 98.2 80 112/70 98 Room Air 98.2 I & O Intake and Output 03/13/17 07:00 Intake Total 900 ml Output Total 750 ml Balance 150 ml Intake Oral 900 ml Output Urine Total 750 ml # Voids 1 PHYSICAL EXAM Physical Exam lungs with decrease BS and poor air movement heart RRR abd sfot ext no edema ASSESSMENT/PLAN Assessment/Plan discussed with Dr. Vaughn back on BIPAP during day today , in the past did not qualify for [facility], continue current plan , Problems: ERICH BLACK MD Mar 13, 2017 08:52
[2017-03-13] MEDS: ALBUTEROL SULFATE 2.5 MG/3 ML NEBU. NEB SCH ×4 (08:59→21:10)
[2017-03-13] MEDS: BUDESONIDE 0.5 MG/2 ML NEBU. NEB SCH ×2 (08:59→21:10)
--- NOTE | 2017-03-13 09:13 | PDOC ---
PULMONARY PROGRESS NOTES Subjective soa this am Vitals Vital Signs Date Time Temp Pulse Resp B/P Pulse Ox O2 Delivery O2 Flow Rate FiO2 03/13/17 08:59 100 Nasal Cannula 3.0 03/13/17 07:00 97.8 93 18 135/83 97.8 General: Alert, Mild Distress HEENT: Other Lungs: Other (decrease bs) Cardiovascular: S1, S2 Abdomen: Soft, Non-tender Neuro Exam: Alert Extremities: No Edema Skin: Warm Medications Active Scripts Medications Dose Route/Sig Days Date Category Dose Instructions Clonazepam 0.5 Mg Tablet 0.5 Mg PO BID 30 03/01/17 Rx Prednisone 20 Mg Tablet 30 Mg PO DAILY 30 03/01/17 Rx one and half tab for 3 day then 1tab for 3 day then half tab daily till seen Dr. Edie Olguin Xt (Diltiazem Hcl) 300 Mg Cap.er.24h 300 Mg PO DAILY 02/22/17 Reported Fluticasone Propionate Nasal [place] (Fluticasone Propionate) 16 Gm [place].susp 2 [place] NS PRN DAILY PRN 12/09/16 Rx Milk Of Magnesia (Magnesium Hydroxide) 2,400 Mg/10 Ml Oral.susp 5,200 Mg PO PRN DAILY PRN 12/07/16 Reported Duoneb 0.5-3(2.5) Mg/3 Ml (Albuterol/Ipratropium) 3 Ml Ampul.neb 3 Ml NEB PRN Q2HR PRN 11/11/16 Reported Prilosec (Omeprazole Magnesium) 10 Mg Suspdr.pkt 20 Mg PO DAILY 11/11/16 Reported Miralax (Polyethylene Glycol 3350) 17 Gm Powd.pack 1 Packet PO DAILY PRN 11/11/16 Reported Symbicort 160-4.5 Mcg Inhaler (Budesonide/Formoterol Fumarate) 10.2 Gm Hfa.aer.ad 2 Puff IH BID 11/11/16 Reported Oxycodone Hcl 20 Mg Tablet 20 Mg PO PRN QID PRN 06/13/16 Reported Bisacodyl 5 Mg Tablet.dr 5 Mg PO DAILY06 06/13/16 Reported Impression . 1. Tyzzk-yt-qxwmayi hypercapnic respiratory failure secondary to acute exacerbation of chronic obstructive pulmonary disease. 2. 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 3. No definite pneumonia seen on the chest x-ray. Plan . 1. ABG compensated .Would avoid hyperoxia. 2. Mild increase soa this am. will place on BIPAP 3. Continue nebulizer treatments. 4. Continue oral prednisone. 5. Continue steroid nebulizer. 6. Needs rehab JOHN BAIRES MD Mar 13, 2017 09:13
[2017-03-13] MEDS: PREDNISONE 20 MG TABLET PO SCH (10:21)
[2017-03-13] MEDS: DILTIAZEM HCL 300 MG CAP.ER.24H. PO SCH (10:21)
[2017-03-13] MEDS: CLONAZEPAM 0.5 MG TABLET PO SCH ×2 (10:22→21:07)
[2017-03-13] MEDS: PANTOPRAZOLE 40 MG TABLET.DR. PO SCH (10:22)
[2017-03-13 11:21] VITALS: BP 122/83
[2017-03-13 15:01] VITALS: BP 116/76
[2017-03-13 19:00] VITALS: BP 104/64
[2017-03-13] MEDS: FLUTICASONE 50MCG/NASAL SPRAY 16GM BOTTLE. NS PRN (22:13)
[2017-03-13 22:55] VITALS: BP 116/63
[2017-03-14 02:42] VITALS: BP 107/71
[2017-03-14] MEDS: BISACODYL 5 MG TABLET.DR. PO SCH (06:27)
[2017-03-14 07:00] VITALS: BP 121/74
[2017-03-14] MEDS: BUDESONIDE 0.5 MG/2 ML NEBU. NEB SCH ×2 (07:47→20:07)
[2017-03-14] MEDS: ALBUTEROL SULFATE 2.5 MG/3 ML NEBU. NEB SCH ×4 (07:47→20:07)
--- NOTE | 2017-03-14 09:05 | PDOC ---
PULMONARY PROGRESS NOTES Subjective soa improved on BIPAP Vitals Vital Signs Date Time Temp Pulse Resp B/P Pulse Ox O2 Delivery O2 Flow Rate FiO2 03/14/17 07:47 93 Nasal Cannula 3.0 03/14/17 02:42 97.5 95 18 107/71 97.5 General: Alert, No acute distress, Mild Distress HEENT: Other Lungs: Other (decrease bs) Cardiovascular: S1, S2 Abdomen: Soft, Non-tender Neuro Exam: Alert Extremities: No Edema Skin: Warm Medications Active Scripts Medications Dose Route/Sig Days Date Category Dose Instructions Clonazepam 0.5 Mg Tablet 0.5 Mg PO BID 30 03/01/17 Rx Prednisone 20 Mg Tablet 30 Mg PO DAILY 30 03/01/17 Rx one and half tab for 3 day then 1tab for 3 day then half tab daily till seen Dr. Edie Olguin Xt (Diltiazem Hcl) 300 Mg Cap.er.24h 300 Mg PO DAILY 02/22/17 Reported Fluticasone Propionate Nasal [place] (Fluticasone Propionate) 16 Gm [place].susp 2 [place] NS PRN DAILY PRN 12/09/16 Rx Milk Of Magnesia (Magnesium Hydroxide) 2,400 Mg/10 Ml Oral.susp 5,200 Mg PO PRN DAILY PRN 12/07/16 Reported Duoneb 0.5-3(2.5) Mg/3 Ml (Albuterol/Ipratropium) 3 Ml Ampul.neb 3 Ml NEB PRN Q2HR PRN 11/11/16 Reported Prilosec (Omeprazole Magnesium) 10 Mg Suspdr.pkt 20 Mg PO DAILY 11/11/16 Reported Miralax (Polyethylene Glycol 3350) 17 Gm Powd.pack 1 Packet PO DAILY PRN 11/11/16 Reported Symbicort 160-4.5 Mcg Inhaler (Budesonide/Formoterol Fumarate) 10.2 Gm Hfa.aer.ad 2 Puff IH BID 11/11/16 Reported Oxycodone Hcl 20 Mg Tablet 20 Mg PO PRN QID PRN 06/13/16 Reported Bisacodyl 5 Mg Tablet.dr 5 Mg PO DAILY06 06/13/16 Reported Impression . 1. Zozek-fs-pnsiteg hypercapnic respiratory failure secondary to acute exacerbation of chronic obstructive pulmonary disease. 2. 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 3. No definite pneumonia seen on the chest x-ray. Plan . 1. ABG compensated .Would avoid hyperoxia. 2. BIPAP qhs and prn 3. Continue nebulizer treatments. 4. Continue oral prednisone. 5. Continue steroid nebulizer. 6. Needs rehab 7. Placement is an issue due to very frail pulmonary status JOHN BAIRES MD Mar 14, 2017 09:05
[2017-03-14] MEDS: PREDNISONE 20 MG TABLET PO SCH (09:34)
[2017-03-14] MEDS: CLONAZEPAM 0.5 MG TABLET PO SCH ×2 (09:34→22:38)
[2017-03-14] MEDS: PANTOPRAZOLE 40 MG TABLET.DR. PO SCH (09:35)
[2017-03-14] MEDS: DILTIAZEM HCL 300 MG CAP.ER.24H. PO SCH (09:35)
[2017-03-14 11:08] VITALS: BP 133/67
[2017-03-14 14:57] VITALS: BP 112/73
--- NOTE | 2017-03-14 17:54 | PDOC ---
SUBJECTIVE Subjective feels better , no new complaints OBJECTIVE Vital Signs Vital Signs Date Time Temp Pulse Resp B/P Pulse Ox O2 Delivery O2 Flow Rate FiO2 03/14/17 16:19 95 Nasal Cannula 3.0 03/14/17 14:57 97.5 109 22 112/73 95 BiPAP/CPAP 97.5 03/14/17 13:06 95 BiPAP/CPAP 03/14/17 11:52 94 BiPAP/CPAP 03/14/17 11:08 97.4 108 18 133/67 99 Nasal Cannula 3.0 97.4 03/14/17 09:35 100 121/74 03/14/17 08:15 97 BiPAP/CPAP 03/14/17 08:00 Bi-pap 03/14/17 07:47 93 Nasal Cannula 3.0 03/14/17 07:00 97.5 100 22 121/74 95 BiPAP/CPAP 97.5 03/14/17 04:13 97 BiPAP/CPAP 03/14/17 02:42 97.5 95 18 107/71 98 Room Air 97.5 03/14/17 02:13 97 BiPAP/CPAP 03/13/17 23:51 97 BiPAP/CPAP 03/13/17 22:55 98.3 110 20 116/63 93 Nasal Cannula 4.0 98.3 03/13/17 22:29 97 BiPAP/CPAP 03/13/17 21:19 98 Nasal Cannula 2.0 03/13/17 21:15 98 Nasal Cannula 3.0 03/13/17 20:00 Nasal Cannula 3.0 03/13/17 19:00 98.3 100 20 104/64 97 Room Air 98.3 I & O Intake and Output 03/14/17 07:00 Output Total 500 ml Balance -500 ml Output Urine Total 500 ml # Voids 1 PHYSICAL EXAM Physical Exam still poor air movement heart RRR abd soft ext no edema ASSESSMENT/PLAN Assessment/Plan COPD improving slowly , he is with por prognosis, refuse rehab , plan home with HH when OK with pulmonary Dr> Appl is covering this week end Problems: ERICH BLACK MD Mar 14, 2017 17:53
[2017-03-14 19:00] VITALS: BP 133/88
[2017-03-14 22:55] VITALS: BP 133/80
[2017-03-15] MEDS: FLUTICASONE 50MCG/NASAL SPRAY 16GM BOTTLE. NS PRN (03:13)
[2017-03-15 03:35] VITALS: BP 136/76
[2017-03-15 05:21] LABS: HEMATOCRIT 39.2 % (39.0-53.0); HEMOGLOBIN 11.8 g/dL (13.0-17.5); RED BLOOD COUNT 4.13 x10^6/uL (4.30-5.70); RED CELL DISTRIBUTION WIDTH 17.1 % (11.5-14.5); WHITE BLOOD COUNT 7.5 x10^3/uL (4.0-11.0)
[2017-03-15 05:46] LABS: BLOOD UREA NITROGEN 19 mg/dL (8-26); CALCIUM 9.4 mg/dL (8.5-10.1); CHLORIDE 99 mmol/L (98-107); CREATININE 0.4 mg/dL (0.7-1.3); GFR 255.1; GLUCOSE 104 mg/dL (70-99); POTASSIUM 4.9 mmol/L (3.5-5.1); SODIUM 144 mmol/L (136-145)
[2017-03-15 05:47] LABS: CARBON DIOXIDE > 45 mmol/L (21-32)
[2017-03-15] MEDS: BISACODYL 5 MG TABLET.DR. PO SCH (05:56)
[2017-03-15 07:00] VITALS: BP 129/68
[2017-03-15] MEDS: BUDESONIDE 0.5 MG/2 ML NEBU. NEB SCH ×2 (07:39→20:46)
[2017-03-15] MEDS: ALBUTEROL SULFATE 2.5 MG/3 ML NEBU. NEB SCH ×4 (07:39→20:46)
--- NOTE | 2017-03-15 08:33 | PDOC ---
GENERAL General: vss and afebrile. awakens and without complaints. air movement very poor. O2 at 3L/NC with decent sats. continue present therapy with plan for dc home with home health per primary when pulmonary feels ok. Patient is at his best very poor shape breathing rincon. Problems: VITAL SIGNS Vital Signs: Vital Signs Date Time Temp Pulse Resp B/P Pulse Ox O2 Delivery O2 Flow Rate FiO2 03/15/17 07:39 97 Nasal Cannula 3.0 03/15/17 07:00 98.4 87 14 129/68 98.4 I & O I & O Intake and Output 03/15/17 07:00 Intake Total 840 ml Output Total 850 ml Balance -10 ml Intake Oral 840 ml Output Urine Total 850 ml ALLERGIES Allergies: Allergies Coded Allergies Type Severity Reaction Last Updated Verified lisinopril Allergy Intermediate 06/11/16 Yes MEDS Medications: Current Medications Medications (Trade) Dose Ordered Sig/Pierre Start Time Stop Time Status Last Admin Dose Admin Acetaminophen (Tylenol) 650 mg PRN Q4HRS PRN 03/10/17 22:30 03/11/17 22:29 DC Albuterol Sulfate (Ventolin Neb Soln) 2.5 mg RTQID 03/11/17 12:00 03/15/17 07:39 2.5 MG Albuterol/ Ipratropium (Duoneb) 3 ml PRN Q2HR PRN 03/11/17 09:00 03/11/17 09:04 DC Bisacodyl (Dulcolax Tab) 5 mg DAILY06 03/11/17 11:00 03/15/17 05:56 5 MG Budesonide (Pulmicort) 0.5 mg RTBID 03/11/17 10:00 03/15/17 07:39 0.5 MG Clonazepam (Klonopin) 0.5 mg BID 03/11/17 09:00 03/14/17 22:38 0.5 MG Diltiazem HCl (Cardizem Cd) 300 mg DAILY 03/11/17 10:00 03/14/17 09:35 300 MG Fluticasone Propionate (Flonase) 2 spray PRN DAILY PRN 03/11/17 09:00 03/15/17 03:13 2 SPRAY Magnesium Hydroxide (Milk Of Magnesia) 2,400 mg PRN DAILY PRN 03/11/17 09:00 Non-Formulary Medication 2 puff BID 03/11/17 09:00 03/11/17 09:04 DC Ondansetron HCl (Zofran) 4 mg PRN Q8HRS PRN 03/10/17 22:30 03/11/17 22:29 DC Oxycodone HCl (Roxicodone) 20 mg PRN QID PRN 03/11/17 09:00 Pantoprazole Sodium (Protonix) 40 mg DAILYAC 03/11/17 11:00 03/14/17 09:35 40 MG Polyethylene Glycol (miraLAX PACKET) 17 gm PRN DAILY PRN 03/11/17 09:00 Prednisone (Prednisone) 30 mg DAILY 03/11/17 10:00 03/14/17 09:34 30 MG LAB Lab: Laboratory Tests Test 03/15/17 03:56 White Blood Count 7.5x10^3/uL (4.0-11.0) Red Blood Count 4.13x10^6/uL (4.30-5.70) Hemoglobin 11.8g/dL (13.0-17.5) Hematocrit 39.2% (39.0-53.0) Mean Corpuscular Volume 95fL (79-100) Mean Corpuscular Hemoglobin 29pg (25-35) Mean Corpuscular Hemoglobin Concent 30g/dL (31-37) Red Cell Distribution Width 17.1% (11.5-14.5) Platelet Count 166x10^3/uL (140-400) Sodium Level 144mmol/L (136-145) Potassium Level 4.9mmol/L (3.5-5.1) Chloride Level 99mmol/L (98-107) Carbon Dioxide Level > 45mmol/L (21-32) Anion Gap (6-14) Blood Urea Nitrogen 19mg/dL (8-26) Creatinine 0.4mg/dL (0.7-1.3) Estimated GFR (Cockcroft-Gault) 255.1 Glucose Level 104mg/dL (70-99) Calcium Level 9.4mg/dL (8.5-10.1) Nutrition Consultation Dietary Evaluation: Comments: continue with ensure tid Expected Outcomes/Goals: to meet > 75% est nutr needs Malnutrition Findings: Body Fat Depletion (Non Severe: Mod to Severe Weight Status: Underweight APPL,VIOLET Friend MD Mar 15, 2017 08:33
[2017-03-15] MEDS: PREDNISONE 20 MG TABLET PO SCH (08:54)
[2017-03-15] MEDS: DILTIAZEM HCL 300 MG CAP.ER.24H. PO SCH (08:55)
[2017-03-15] MEDS: CLONAZEPAM 0.5 MG TABLET PO SCH ×2 (08:55→20:19)
[2017-03-15] MEDS: PANTOPRAZOLE 40 MG TABLET.DR. PO SCH (08:55)
--- NOTE | 2017-03-15 09:20 | PDOC ---
PULMONARY PROGRESS NOTES Subjective soa improved on BIPAP Vitals Vital Signs Date Time Temp Pulse Resp B/P Pulse Ox O2 Delivery O2 Flow Rate FiO2 03/15/17 08:55 87 129/68 03/15/17 07:39 97 Nasal Cannula 3.0 03/15/17 07:00 98.4 14 98.4 General: Alert, No acute distress, Mild Distress HEENT: Other Lungs: Other (decrease bs) Cardiovascular: S1, S2 Abdomen: Soft, Non-tender Neuro Exam: Alert Extremities: No Edema Skin: Warm Labs Laboratory Tests Test 03/15/17 03:56 White Blood Count 7.5x10^3/uL (4.0-11.0) Red Blood Count 4.13x10^6/uL (4.30-5.70) Hemoglobin 11.8g/dL (13.0-17.5) Hematocrit 39.2% (39.0-53.0) Mean Corpuscular Volume 95fL (79-100) Mean Corpuscular Hemoglobin 29pg (25-35) Mean Corpuscular Hemoglobin Concent 30g/dL (31-37) Red Cell Distribution Width 17.1% (11.5-14.5) Platelet Count 166x10^3/uL (140-400) Sodium Level 144mmol/L (136-145) Potassium Level 4.9mmol/L (3.5-5.1) Chloride Level 99mmol/L (98-107) Carbon Dioxide Level > 45mmol/L (21-32) Anion Gap (6-14) Blood Urea Nitrogen 19mg/dL (8-26) Creatinine 0.4mg/dL (0.7-1.3) Estimated GFR (Cockcroft-Gault) 255.1 Glucose Level 104mg/dL (70-99) Calcium Level 9.4mg/dL (8.5-10.1) Laboratory Tests Test 03/15/17 03:56 White Blood Count 7.5x10^3/uL (4.0-11.0) Red Blood Count 4.13x10^6/uL (4.30-5.70) Hemoglobin 11.8g/dL (13.0-17.5) Hematocrit 39.2% (39.0-53.0) Mean Corpuscular Volume 95fL (79-100) Mean Corpuscular Hemoglobin 29pg (25-35) Mean Corpuscular Hemoglobin Concent 30g/dL (31-37) Red Cell Distribution Width 17.1% (11.5-14.5) Platelet Count 166x10^3/uL (140-400) Sodium Level 144mmol/L (136-145) Potassium Level 4.9mmol/L (3.5-5.1) Chloride Level 99mmol/L (98-107) Carbon Dioxide Level > 45mmol/L (21-32) Anion Gap (6-14) Blood Urea Nitrogen 19mg/dL (8-26) Creatinine 0.4mg/dL (0.7-1.3) Estimated GFR (Cockcroft-Gault) 255.1 Glucose Level 104mg/dL (70-99) Calcium Level 9.4mg/dL (8.5-10.1) Medications Active Scripts Medications Dose Route/Sig Days Date Category Dose Instructions Clonazepam 0.5 Mg Tablet 0.5 Mg PO BID 30 03/01/17 Rx Prednisone 20 Mg Tablet 30 Mg PO DAILY 30 03/01/17 Rx one and half tab for 3 day then 1tab for 3 day then half tab daily till seen Dr. Edie Olguin Xt (Diltiazem Hcl) 300 Mg Cap.er.24h 300 Mg PO DAILY 02/22/17 Reported Fluticasone Propionate Nasal [place] (Fluticasone Propionate) 16 Gm [place].susp 2 [place] NS PRN DAILY PRN 12/09/16 Rx Milk Of Magnesia (Magnesium Hydroxide) 2,400 Mg/10 Ml Oral.susp 5,200 Mg PO PRN DAILY PRN 12/07/16 Reported Duoneb 0.5-3(2.5) Mg/3 Ml (Albuterol/Ipratropium) 3 Ml Ampul.neb 3 Ml NEB PRN Q2HR PRN 11/11/16 Reported Prilosec (Omeprazole Magnesium) 10 Mg Suspdr.pkt 20 Mg PO DAILY 11/11/16 Reported Miralax (Polyethylene Glycol 3350) 17 Gm Powd.pack 1 Packet PO DAILY PRN 11/11/16 Reported Symbicort 160-4.5 Mcg Inhaler (Budesonide/Formoterol Fumarate) 10.2 Gm Hfa.aer.ad 2 Puff IH BID 11/11/16 Reported Oxycodone Hcl 20 Mg Tablet 20 Mg PO PRN QID PRN 06/13/16 Reported Bisacodyl 5 Mg Tablet.dr 5 Mg PO DAILY06 06/13/16 Reported Impression . 1. Ebsri-tt-ydoseit hypercapnic respiratory failure secondary to acute exacerbation of chronic obstructive pulmonary disease. feels better with BIPAP 2. 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 3. No definite pneumonia seen on the chest x-ray. Plan . 1. ABG compensated .Would avoid hyperoxia. 2. BIPAP qhs and prn 3. Continue nebulizer treatments. 4. Continue oral prednisone. 5. Continue steroid nebulizer. 6. Needs rehab 7. Placement is an issue due to very frail pulmonary status. ok with dc home with Friday. High chance of re-admission JOHN BAIRES MD Mar 15, 2017 09:19
[2017-03-15 11:00] VITALS: BP 140/87
[2017-03-15 15:00] VITALS: BP 138/72
[2017-03-15 19:00] VITALS: BP 122/74
[2017-03-15 22:31] VITALS: BP 130/81
[2017-03-16 03:00] VITALS: BP 137/91
[2017-03-16] MEDS: BISACODYL 5 MG TABLET.DR. PO SCH (05:02)
[2017-03-16] MEDS: PANTOPRAZOLE 40 MG TABLET.DR. PO SCH (05:03)
[2017-03-16 07:00] VITALS: BP 131/84
[2017-03-16] MEDS: ALBUTEROL SULFATE 2.5 MG/3 ML NEBU. NEB SCH ×4 (07:36→20:34)
[2017-03-16] MEDS: BUDESONIDE 0.5 MG/2 ML NEBU. NEB SCH ×2 (07:36→20:34)
--- NOTE | 2017-03-16 09:00 | PDOC ---
PULMONARY PROGRESS NOTES Subjective soa improved on BIPAP Vitals Vital Signs Date Time Temp Pulse Resp B/P Pulse Ox O2 Delivery O2 Flow Rate FiO2 03/16/17 07:36 92 BiPAP/CPAP 03/16/17 07:00 98.9 106 16 131/84 3.0 98.9 General: Alert, No acute distress, Mild Distress HEENT: Other Lungs: Other (decrease bs) Cardiovascular: S1, S2 Abdomen: Soft, Non-tender Neuro Exam: Alert Extremities: No Edema Skin: Warm Labs Laboratory Tests Test 03/15/17 03:56 White Blood Count 7.5x10^3/uL (4.0-11.0) Red Blood Count 4.13x10^6/uL (4.30-5.70) Hemoglobin 11.8g/dL (13.0-17.5) Hematocrit 39.2% (39.0-53.0) Mean Corpuscular Volume 95fL (79-100) Mean Corpuscular Hemoglobin 29pg (25-35) Mean Corpuscular Hemoglobin Concent 30g/dL (31-37) Red Cell Distribution Width 17.1% (11.5-14.5) Platelet Count 166x10^3/uL (140-400) Sodium Level 144mmol/L (136-145) Potassium Level 4.9mmol/L (3.5-5.1) Chloride Level 99mmol/L (98-107) Carbon Dioxide Level > 45mmol/L (21-32) Anion Gap (6-14) Blood Urea Nitrogen 19mg/dL (8-26) Creatinine 0.4mg/dL (0.7-1.3) Estimated GFR (Cockcroft-Gault) 255.1 Glucose Level 104mg/dL (70-99) Calcium Level 9.4mg/dL (8.5-10.1) Medications Active Scripts Medications Dose Route/Sig Days Date Category Dose Instructions Clonazepam 0.5 Mg Tablet 0.5 Mg PO BID 30 03/01/17 Rx Prednisone 20 Mg Tablet 30 Mg PO DAILY 30 03/01/17 Rx one and half tab for 3 day then 1tab for 3 day then half tab daily till seen Dr. Edie Olguin Xt (Diltiazem Hcl) 300 Mg Cap.er.24h 300 Mg PO DAILY 02/22/17 Reported Fluticasone Propionate Nasal [place] (Fluticasone Propionate) 16 Gm [place].susp 2 [place] NS PRN DAILY PRN 12/09/16 Rx Milk Of Magnesia (Magnesium Hydroxide) 2,400 Mg/10 Ml Oral.susp 5,200 Mg PO PRN DAILY PRN 12/07/16 Reported Duoneb 0.5-3(2.5) Mg/3 Ml (Albuterol/Ipratropium) 3 Ml Ampul.neb 3 Ml NEB PRN Q2HR PRN 11/11/16 Reported Prilosec (Omeprazole Magnesium) 10 Mg Suspdr.pkt 20 Mg PO DAILY 11/11/16 Reported Miralax (Polyethylene Glycol 3350) 17 Gm Powd.pack 1 Packet PO DAILY PRN 11/11/16 Reported Symbicort 160-4.5 Mcg Inhaler (Budesonide/Formoterol Fumarate) 10.2 Gm Hfa.aer.ad 2 Puff IH BID 11/11/16 Reported Oxycodone Hcl 20 Mg Tablet 20 Mg PO PRN QID PRN 06/13/16 Reported Bisacodyl 5 Mg Tablet.dr 5 Mg PO DAILY06 06/13/16 Reported Impression . 1. Zyyal-kp-mtfjcur hypercapnic respiratory failure secondary to acute exacerbation of chronic obstructive pulmonary disease. feels better with BIPAP 2. 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 3. No definite pneumonia seen on the chest x-ray. Plan . 1. ABG compensated .Would avoid hyperoxia. 2. BIPAP qhs and prn 3. Continue nebulizer treatments. 4. Continue oral prednisone. 5. Continue steroid nebulizer. 6. Needs rehab 7. Placement is an issue due to very frail pulmonary status. ok with dc home with Friday. High chance of re-admission JOHN BAIRES MD Mar 16, 2017 09:00
[2017-03-16] MEDS: CLONAZEPAM 0.5 MG TABLET PO SCH ×2 (09:02→20:18)
[2017-03-16] MEDS: DILTIAZEM HCL 300 MG CAP.ER.24H. PO SCH (09:03)
[2017-03-16] MEDS: PREDNISONE 20 MG TABLET PO SCH (09:03)
--- NOTE | 2017-03-16 10:47 | PDOC ---
GENERAL General: vss and afebrile. awake and alert and states he feels ok. remains on bi-pap with 3L/NC o2 when off for meals,etc. Chest with decreased breath sounds. very cachectic appearing. continue supportive care. Problems: VITAL SIGNS Vital Signs: Vital Signs Date Time Temp Pulse Resp B/P Pulse Ox O2 Delivery O2 Flow Rate FiO2 03/16/17 09:03 106 131/84 03/16/17 07:36 92 BiPAP/CPAP 03/16/17 07:00 98.9 16 3.0 98.9 I & O I & O Intake and Output 03/16/17 07:00 Intake Total 1140 ml Output Total 475 ml Balance 665 ml Intake Oral 1140 ml Output Urine Total 475 ml # Bowel Movements 1 ALLERGIES Allergies: Allergies Coded Allergies Type Severity Reaction Last Updated Verified lisinopril Allergy Intermediate 06/11/16 Yes MEDS Medications: Current Medications Medications (Trade) Dose Ordered Sig/Pierre Start Time Stop Time Status Last Admin Dose Admin Acetaminophen (Tylenol) 650 mg PRN Q4HRS PRN 03/10/17 22:30 03/11/17 22:29 DC Albuterol Sulfate (Ventolin Neb Soln) 2.5 mg RTQID 03/11/17 12:00 03/16/17 07:36 2.5 MG Albuterol/ Ipratropium (Duoneb) 3 ml PRN Q2HR PRN 03/11/17 09:00 03/11/17 09:04 DC Bisacodyl (Dulcolax Tab) 5 mg DAILY06 03/11/17 11:00 03/16/17 05:02 5 MG Budesonide (Pulmicort) 0.5 mg RTBID 03/11/17 10:00 03/16/17 07:36 0.5 MG Clonazepam (Klonopin) 0.5 mg BID 03/11/17 09:00 03/16/17 09:02 0.5 MG Diltiazem HCl (Cardizem Cd) 300 mg DAILY 03/11/17 10:00 03/16/17 09:03 300 MG Fluticasone Propionate (Flonase) 2 spray PRN DAILY PRN 03/11/17 09:00 03/15/17 03:13 2 SPRAY Magnesium Hydroxide (Milk Of Magnesia) 2,400 mg PRN DAILY PRN 03/11/17 09:00 Non-Formulary Medication 2 puff BID 03/11/17 09:00 03/11/17 09:04 DC Ondansetron HCl (Zofran) 4 mg PRN Q8HRS PRN 03/10/17 22:30 03/11/17 22:29 DC Oxycodone HCl (Roxicodone) 20 mg PRN QID PRN 03/11/17 09:00 Pantoprazole Sodium (Protonix) 40 mg DAILYAC 03/11/17 11:00 03/16/17 05:03 40 MG Polyethylene Glycol (miraLAX PACKET) 17 gm PRN DAILY PRN 03/11/17 09:00 Prednisone (Prednisone) 30 mg DAILY 03/11/17 10:00 03/16/17 09:03 30 MG Nutrition Consultation Dietary Evaluation: Comments: continue with ensure tid Expected Outcomes/Goals: to meet > 75% est nutr needs Malnutrition Findings: Body Fat Depletion (Non Severe: Mod to Severe Weight Status: Underweight VIOLET MORTON MD Mar 16, 2017 10:47
[2017-03-16 11:00] VITALS: BP 118/73
[2017-03-16 15:00] VITALS: BP 133/66
[2017-03-16 19:00] VITALS: BP 130/77
[2017-03-16 23:05] VITALS: BP 114/78
[2017-03-17 03:03] VITALS: BP 124/78
[2017-03-17 07:00] VITALS: BP 122/74
[2017-03-17 08:29] VITALS: BP 122/74
[2017-03-17] MEDS: DILTIAZEM HCL 300 MG CAP.ER.24H. PO SCH (08:29)
[2017-03-17] MEDS: PANTOPRAZOLE 40 MG TABLET.DR. PO SCH (08:30)
[2017-03-17] MEDS: CLONAZEPAM 0.5 MG TABLET PO SCH (08:30)
[2017-03-17] MEDS: PREDNISONE 20 MG TABLET PO SCH (08:30)
[2017-03-17] MEDS ORDERED: BISACODYL 5 MG TABLET.DR. PO SCH (09:00)
--- NOTE | 2017-03-17 09:01 | PDOC ---
SUBJECTIVE Subjective feel ok, seems at best of baseline OBJECTIVE Vital Signs Vital Signs Date Time Temp Pulse Resp B/P Pulse Ox O2 Delivery O2 Flow Rate FiO2 03/17/17 08:29 91 122/74 03/17/17 07:52 99 BiPAP/CPAP 03/17/17 07:00 97.8 91 20 122/74 89 BiPAP/CPAP 30.0 97.8 03/17/17 03:03 97.5 87 18 124/78 94 BiPAP/CPAP 97.5 03/17/17 02:38 BiPAP/CPAP 03/17/17 00:12 BiPAP/CPAP 03/16/17 23:05 97.4 98 18 114/78 95 BiPAP/CPAP 97.4 03/16/17 22:51 Nasal Cannula 2.0 03/16/17 20:36 99 Nasal Cannula 3.0 03/16/17 20:03 Nasal Cannula 2.0 03/16/17 19:00 97.9 99 16 130/77 97 Room Air 3.5 97.9 03/16/17 16:09 93 Nasal Cannula 4.0 03/16/17 15:00 98.9 96 14 133/66 93 Nasal Cannula 3.0 98.9 03/16/17 11:37 Nasal Cannula 3.0 03/16/17 11:00 98.4 101 16 118/73 90 Room Air 3.0 98.4 03/16/17 09:03 106 131/84 I & O Intake and Output 03/17/17 07:00 Intake Total 960 ml Output Total 1251 ml Balance -291 ml Intake Oral 960 ml Output Urine Total 1250 ml Stool Total 1 ml # Voids 2 PHYSICAL EXAM Physical Exam still decrease BS but better air movement ASSESSMENT/PLAN Assessment/Plan plan to d/c to [facility] today continue BiPAP and treatment per orders Problems: REICH BLACK MD Mar 17, 2017 09:01
--- NOTE | 2017-03-17 09:19 | PDOC ---
PULMONARY PROGRESS NOTES Subjective feels better Vitals Vital Signs Date Time Temp Pulse Resp B/P Pulse Ox O2 Delivery O2 Flow Rate FiO2 03/17/17 08:29 91 122/74 03/17/17 07:52 99 BiPAP/CPAP 03/17/17 07:00 97.8 20 30.0 97.8 General: Alert, No acute distress, Mild Distress HEENT: Other Lungs: Other (decrease bs) Cardiovascular: S1, S2 Abdomen: Soft, Non-tender Neuro Exam: Alert Extremities: No Edema Skin: Warm Medications Active Scripts Medications Dose Route/Sig Days Date Category Dose Instructions Clonazepam 0.5 Mg Tablet 0.5 Mg PO BID 30 03/01/17 Rx Prednisone 20 Mg Tablet 30 Mg PO DAILY 30 03/01/17 Rx one and half tab for 3 day then 1tab for 3 day then half tab daily till seen Dr. Edie Olguin Xt (Diltiazem Hcl) 300 Mg Cap.er.24h 300 Mg PO DAILY 02/22/17 Reported Fluticasone Propionate Nasal [place] (Fluticasone Propionate) 16 Gm [place].susp 2 [place] NS PRN DAILY PRN 12/09/16 Rx Milk Of Magnesia (Magnesium Hydroxide) 2,400 Mg/10 Ml Oral.susp 5,200 Mg PO PRN DAILY PRN 12/07/16 Reported Duoneb 0.5-3(2.5) Mg/3 Ml (Albuterol/Ipratropium) 3 Ml Ampul.neb 3 Ml NEB PRN Q2HR PRN 11/11/16 Reported Prilosec (Omeprazole Magnesium) 10 Mg Suspdr.pkt 20 Mg PO DAILY 11/11/16 Reported Miralax (Polyethylene Glycol 3350) 17 Gm Powd.pack 1 Packet PO DAILY PRN 11/11/16 Reported Symbicort 160-4.5 Mcg Inhaler (Budesonide/Formoterol Fumarate) 10.2 Gm Hfa.aer.ad 2 Puff IH BID 11/11/16 Reported Oxycodone Hcl 20 Mg Tablet 20 Mg PO PRN QID PRN 06/13/16 Reported Bisacodyl 5 Mg Tablet.dr 5 Mg PO DAILY06 06/13/16 Reported Impression . 1. Yjjon-oc-erxkixc hypercapnic respiratory failure secondary to acute exacerbation of chronic obstructive pulmonary disease. feels better with BIPAP 2. 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 3. No definite pneumonia seen on the chest x-ray. Plan . 1. ABG compensated .Would avoid hyperoxia. 2. BIPAP qhs and prn 3. Continue nebulizer treatments. 4. Continue oral prednisone. 5. Continue steroid nebulizer. 6. Needs rehab 7. Placement is an issue due to very frail pulmonary status. ok with dc to [facility]. High chance of re-admission JOHN BAIRES MD Mar 17, 2017 09:19
--- NOTE | 2017-03-17 12:42 | PDOC3 ---
Discharge Summary* Date of Admission: Mar 10, 2017 Date of Discharge: Mar 17, 2017 Admitting Diagnosis Problems Medical Problems: (1) Acute and chronic respiratory failure (qzfxa-[id number]) Status: Acute (2) COPD exacerbation Status: Acute Final Diagnosis 1. Bmjka-ln-djcuvwy hypercapnic respiratory failure secondary to acute exacerbation of chronic obstructive pulmonary disease. 2. 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 3- HTN and tachycardia on Cardiazem 4-hx prostate CA 5-Malnutrition Problems Medical Problems: (1) Acute and chronic respiratory failure (didia-sj-srrrrne) Status: Acute (2) COPD exacerbation Status: Acute CONSULTS pulmonary Procedures CXR Brief Hospital Course Mr. Taylor is a 71 old [sex] who presented with [ ] Disposition/Orders: D/C to Another Facility CONDITION AT DISCHARGE: Improved, Comment (poor prognosis and high probability for readmission) Diet: Mechanical Soft/Chopped, Cardiac Scheduled Bisacodyl (Bisacodyl) 5 MG PO DAILY06 (Reported) Budesonide/Formoterol Fumarate (Symbicort 160-4.5 Mcg Inhaler) 2 PUFF IH BID ( Reported) Clonazepam (Clonazepam) 0.5 MG PO BID Diltiazem Hcl (Cartia Xt) 300 MG PO DAILY (Reported) Omeprazole Magnesium (Prilosec) 20 MG PO DAILY (Reported) Prednisone (Prednisone) 30 MG PO DAILY Scheduled PRN Fluticasone Propionate (Fluticasone Propionate Nasal [place]) 2 SPRAY NS PRN DAILY PRN PRN ALLERGIES Ipratropium/Albuterol Sulfate (Duoneb 0.5-3(2.5) Mg/3 Ml) 3 ML NEB PRN Q2HR PRN PRN SHORTNESS OF BREATH (Reported) Magnesium Hydroxide (Milk Of Magnesia) 5,200 MG PO PRN DAILY PRN PRN CONSTIPATION (Reported) Oxycodone Hcl (Oxycodone Hcl) 20 MG PO PRN QID PRN PRN PAIN (Reported) Polyethylene Glycol 3350 (Miralax) 1 PACKET PO DAILY PRN PRN CONSTIPATION ( Reported) FOLLOW UP APPOINTMENT: 1 week use BIPAP every night and PRN SOB, O2 3 l/min Time Spent Total time spent with patient [] minutes for coordination of care, counseling, and education. ERICH BLACK MD Mar 17, 2017 12:42
[2017-03-19] MEDS ORDERED: ESOM20CA PO (20:42)
[2017-03-19] MEDS ORDERED: ALBU2.5V5 NEB ×2 (20:42)
== END 2017-03-17 11:10 | DRG 189 ==
LOC: ER 18:38 → 5 SOUTH 22:24
PROVIDERS: ADMIT Internal Medicine; ATTEND Internal Medicine
PROC: 5A09457 Assistance with Respiratory Ventilation, 24-96 Consecutive Hours, Continuous Positive Airway Pressure (ICD-10-PCS; principal; 2017-03-10)
DX: J96.22 Acute and chronic respiratory failure with hypercapnia (principal); J44.1 Chronic obstructive pulmonary disease with (acute) exacerbation; E46 Unspecified protein-calorie malnutrition; R64 Cachexia; Z68.1 Body mass index [BMI] 19.9 or less, adult; J96.21 Acute and chronic respiratory failure with hypoxia; I11.9 Hypertensive heart disease without heart failure; M19.90 Unspecified osteoarthritis, unspecified site; Z66 Do not resuscitate; N28.9 Disorder of kidney and ureter, unspecified; R32 Unspecified urinary incontinence; R00.0 Tachycardia, unspecified; Z96.651 Presence of right artificial knee joint; F41.9 Anxiety disorder, unspecified; K59.00 Constipation, unspecified; Z83.3 Family history of diabetes mellitus; Z85.46 Personal history of malignant neoplasm of prostate; Z87.891 Personal history of nicotine dependence; Z90.79 Acquired absence of other genital organ(s); Z99.81 Dependence on supplemental oxygen; Z88.8 Allergy status to other drugs, medicaments and biological substances; Z79.899 Other long term (current) drug therapy; Z71.89 Other specified counseling
CPT/HCPCS: 36415; 36600; 71010; 80048; 82805; 83880; 84484; 85007; 85027; 93005; 94640; 94660; 94760; J7512; 97110; 99285-25

== ENCOUNTER 2017-04-02 10:51 | Inpatient (IN) | payer MEDICARE, OTHER ==
[~2017-04-02] VITALS: Ht 182.9 cm; Wt 56.0 kg
[2017-04-02] VITALS (10 sets, daily range): BP systolic 78–169; BP diastolic 52–67
[~2017-04-02 10:51] MED LIST changes: +ALBU2.5V5 NEB; +ESOM20CA PO; +POLY17PO29 PO; -POLY17PO5 PO
[2017-04-02] MEDS ORDERED: IV NORMAL SALINE 1000ML BAG 1,000 ML IV SCH (11:12)
[2017-04-02] MEDS ORDERED: IPRATROPIUM BROMIDE 0.5 MG/2.5 ML NEBU. NEB ONE (11:15)
[2017-04-02] MEDS ORDERED: ALBUTEROL SULFATE 2.5 MG/3 ML NEBU. CONT NEB ONE (11:15)
[2017-04-02] MEDS ORDERED: 0.9 % SODIUM CHLORIDE 10 ML DISP.SYRIN. IV ONE (11:15)
[2017-04-02] MEDS ORDERED: methylPREDNISolone SOD SUCC PF 125 MG/2 ML VIAL. IV ONE (11:15)
--- NOTE | 2017-04-02 11:25 | PHYS DOC ---
Past Medical History Past Medical History: COPD, Hypertension, Renal Disease, Other Additional Past Medical Histor: generalized weakness, malnurished Past Surgical History: Knee Replacement, Other Additional Past Surgical Histo: PROSTATE, WRIST, R KNEE Alcohol Use: Occasionally Drug Use: None Adult General Chief Complaint Chief Complaint: SHORTNESS OF BREATH HPI HPI Patient is a pleasant 71-year-old male with history of chronic respiratory failure and hypercapnia, COPD, difficulty walking secondary to general weakness , hypertensive heart disease without heart failure, osteoarthritis with chronic pain, anxiety disorder gastroesophageal reflux disease generalized fatigue and muscle weakness who presents with shortness of breath is gone progressively worse over the last 10 hours or so. Patient is not the historian his story story and this comes from EMS detention report and family. He is a DNR DPO ED the daughter wants everything done at this point in time to treat his respirations symptoms. It is unclear if this been a change in medications no documented fevers no documented nausea vomiting or other symptoms. Review of Systems Review of Systems Review of systems is not obtainable secondary to medical condition. detention report no nausea, vomiting, report of abdominal pain, no reported fevers, cough, chills, decreased appetite is apparent. Current Medications Current Medications Current Medications Medications (Trade) Dose Ordered Sig/Pierre Start Time Stop Time Status Last Admin Dose Admin Albuterol Sulfate (Ventolin Neb Soln) 15 mg 1X ONCE 04/02/17 11:15 04/02/17 11:22 DC 04/02/17 12:20 10 MG Ipratropium [place] (Atrovent) 0.5 mg 1X ONCE 04/02/17 11:15 04/02/17 11:22 DC 04/02/17 12:15 0.5 MG Methylprednisolone Sodium Succinate (Solu-Medrol 125mg Vial) 125 mg 1X ONCE 04/02/17 11:15 04/02/17 11:22 DC 04/02/17 11:36 125 MG Sodium Chloride 1,000 ml @ 1,000 mls/hr Q1H 04/02/17 11:12 04/02/17 12:11 DC 04/02/17 11:36 1,000 MLS/HR Sodium Chloride (Normal Saline Flush) 10 ml 1X ONCE 04/02/17 11:15 04/02/17 11:22 DC Allergies Allergies Allergies Coded Allergies Type Severity Reaction Last Updated Verified lisinopril Allergy Intermediate 03/19/17 Yes Physical Exam Physical Exam Patient noted to be tachypneic hypoxic and tachycardic. Constitutional: Well-nourished cachectic individual with significant rest for distress mild retractions noted HENT: Normocephalic, atraumatic, or pharynx is very dry no exudates Eyes: PERRLA, EOMI, conjunctiva normal, no discharge. [] Neck: No obvious stridor no JVD. Cardiovascular: Tachycardia noted greater than 110 Lungs & Thorax: Significantly decreased breath sounds right lower base with significant rhonchi. Rales decreased breaths in all lung ferreira secondary to significant wheezing and decreased air sounds movement. Abdomen: Bowel sounds normal, soft, no tenderness, no masses, no pulsatile masses. [] Skin: Warm, dry, no diaphoresis no rash noted no soft tissue swelling. Back: Unobtainable Extremities: No tenderness, no cyanosis, no clubbing, ROM intact, no edema. [] Neurologic: Patient awake and can be alerted by movement withdraws to pain. Psychologic: Judgment and affect not evaluated. Current Patient Data Vital Signs Vital Signs Date Time Temp Pulse Resp B/P (MAP) Pulse Ox O2 Delivery O2 Flow Rate FiO2 04/02/17 10:51 100.3 116 26 135/77 (96) 90 Simple Mask 5.0 100.3 Lab Values Laboratory Tests Test 04/02/17 11:00 04/02/17 11:04 04/02/17 11:34 04/02/17 11:48 Lactic Acid Level 1.6 mmol/L (0.4-2.0) White Blood Count 21.8 x10^3/uL (4.0-11.0) H Red Blood Count 3.96 x10^6/uL (4.30-5.70) L Hemoglobin 11.4 g/dL (13.0-17.5) L Hematocrit 36.0 % (39.0-53.0) L Mean Corpuscular Volume 91 fL (79-100) Mean Corpuscular Hemoglobin 29 pg (25-35) Mean Corpuscular Hemoglobin Concent 32 g/dL (31-37) Red Cell Distribution Width 17.0 % (11.5-14.5) H Platelet Count 220 x10^3/uL (140-400) Neutrophils (%) (Auto) 89 % (31-73) H Lymphocytes (%) (Auto) 4 % (24-48) L Monocytes (%) (Auto) 6 % (0-9) Eosinophils (%) (Auto) 0 % (0-3) Basophils (%) (Auto) 1 % (0-3) Neutrophils # (Auto) 19.4 x10^3uL (1.8-7.7) H Lymphocytes # (Auto) 0.9 x10^3/uL (1.0-4.8) L Monocytes # (Auto) 1.4 x10^3/uL (0.0-1.1) H Eosinophils # (Auto) 0.0 x10^3/uL (0.0-0.7) Basophils # (Auto) 0.1 x10^3/uL (0.0-0.2) Platelet Estimate Pending Sodium Level 137 mmol/L (136-145) Potassium Level 4.7 mmol/L (3.5-5.1) Chloride Level 94 mmol/L (98-107) L Carbon Dioxide Level > 45 mmol/L (21-32) H Anion Gap (6-14) Blood Urea Nitrogen 19 mg/dL (8-26) Creatinine 0.7 mg/dL (0.7-1.3) Estimated GFR (Cockcroft-Gault) 133.8 BUN/Creatinine Ratio 27 (6-20) H Glucose Level 158 mg/dL (70-99) H Calcium Level 9.6 mg/dL (8.5-10.1) Magnesium Level 1.8 mg/dL (1.8-2.4) Total Bilirubin 0.6 mg/dL (0.2-1.0) Aspartate Amino Transferase (AST) 16 U/L (15-37) Alanine Aminotransferase (ALT) 17 U/L (16-63) Alkaline Phosphatase 24 U/L (46-116) L Creatine Kinase 30 U/L (39-308) L Creatine Kinase MB (Mass) < 0.2 ng/mL (0.0-3.6) Creatine Kinase MB Relative Index % (0-4) AG-Gtu-Z-Type Natriuretic Peptide 334 pg/mL (0-124) H Total Protein 7.0 g/dL (6.4-8.2) Albumin 2.5 g/dL (3.4-5.0) L Albumin/Globulin Ratio 0.6 (1.0-1.7) L Thyroid Stimulating Hormone (TSH) 0.699 uIU/mL (0.358-3.74) POC Troponin I 0.02 ng/ml (<0.08) Urine Collection Type Unknown Urine Color Olesya Urine Clarity Cloudy Urine pH 5.5 Urine Specific [place] 1.025 Urine Protein 30 mg/dL (NEG-TRACE) Urine Glucose (UA) Negative mg/dL (NEG) Urine Ketones (Stick) Trace mg/dL (NEG) Urine Blood Negative (NEG) Urine Nitrite Negative (NEG) Urine Bilirubin Small (NEG) Urine Urobilinogen Dipstick 1.0 mg/dL (0.2 mg/dL) Urine Leukocyte Esterase Small (NEG) Urine RBC 0 /HPF (0-2) Urine WBC 5-10 /HPF (0-4) Urine Squamous Epithelial Cells Occ /LPF Urine Transitional Epithelial Cells Occ /LPF Urine Bacteria Few /HPF (0-FEW) Urine Hyaline Casts Occasional /HPF Urine Granular Casts Occasional /HPF Urine Mucus Marked /LPF Influenza Type A Antigen Negative (NEGATIVE) Influenza Type B Antigen Negative (NEGATIVE) Laboratory Tests 04/02/17 11:04 Laboratory Tests 04/02/17 11:04 EKG EKG EKG timed 11:17 AM 04/02/2017 temperature heart rate of 111 with premature PACs and nonspecific T-wave inversions in V1 and V2 which may represent dorian septal Ischemia. EKG read by Dr. Walsh. Radiology/Procedures Radiology/Procedures [] Signed PATIENT: YAYA BARILLAS ACCOUNT: [id number] : 1945 LOCATION: ER AGE: 71 SEX: M EXAM STATUS: PRE ER ORD. PHYSICIAN: HAROON WALSH MD REASON: sob PROCEDURE: PORTABLE CHEST 1V Indication: Shortness of air. Time of exam 11:30 AM Correlation is made with prior chest from 03/19/2017. There has been development of infiltrate in the left perihilar and left basilar region when compared with prior examination from 2 weeks earlier. There is some volume loss in the left lung. The right lung is clear. No pneumothorax is seen. Impression: Development of left perihilar and left basilar infiltrate when compared with exam from 03/19/2017. DICTATED and SIGNED BY: ARYAN HERRING MD DATE: 04/02/17 1143 CC: HAROON WALSH MD; QING DAVIS MD ~ Course & Med Decision Making Course & Med Decision Making Pertinent Labs and Imaging studies reviewed. (See chart for details) Patient upon arrival was tachycardic and hypoxic as well as tachypneic he was not moving much air on exam this is very reminiscent of a possible pneumonia with COPD exacerbation. Patient is normally a DNR or asked to resuscitate him based on the DPOA rest. We used BiPAP and given patient's fluid antibiotics after blood cultures and lactic acid was completed. Patient's troponin initially was 0.02. EKG read by Dr. Walsh is included in the workup. Chest x- ray demonstrated early or new infiltrate when compared with old studies. Even patient's continued respiratory distress although is DNR try to optimize therapy by giving steroids as well as albuterol and Atrovent he was continuously. Patient is moving better air but given increased rhonchi in the left base and suspicion of infection patient be admitted to the ICU. consulted for admission he agrees to admission Impression: Respiratory insufficiency, pneumonia, Disposition: Admission to the ICU for fluid hydration, antibiotic, close monitoring with BiPAP support ABGs serially albuterol Atrovent and steroids. Critical care I spent approximately 45-50 minutes working and engaged directly in the patient care providing critical care evaluation this includes but not limited to time spent engaged in work directly related to the individual patients care. I spent time at the bedside, reviewing test results, discussing the case with staff, documenting the medical record and time spent with EMS discussing specific treatment issues when the patient presented and during his evaluation. [] Dragon Disclaimer Dragon Disclaimer This electronic medical record was generated, in whole or in part, using a voice recognition dictation system. Departure Departure Impression: Primary Impression: Acute and chronic respiratory failure ([id number]) Additional Impressions: COPD with acute exacerbation Hypoxia Leukocytosis Pneumonia Disposition: ADMITTED INPATIENT Admitting Physician: Forrest Yu Condition: GUARDED Referrals: QING DAVIS MD (PCP) Problem Qualifiers HAROON WALSH MD April 02, 2017 11:25
[2017-04-02 11:35] LABS: BASO # 0.1 x10^3/uL (0.0-0.2); BASO % 1 % (0-3); EOS % 0 % (0-3); HEMOGLOBIN 11.4 g/dL (13.0-17.5); LYMPH # 0.9 x10^3/uL (1.0-4.8); LYMPH % 4 % (24-48); MEAN CORPUSCULAR HEMOGLOBIN 29 pg (25-35); MEAN CORPUSCULAR HGB CONC 32 g/dL (31-37); MEAN CORPUSCULAR VOLUME 91 fL (79-100); MONO % 6 % (0-9); NEUT % 89 % (31-73); PLATELET COUNT 220 x10^3/uL (140-400); RED BLOOD COUNT 3.96 x10^6/uL (4.30-5.70); WHITE BLOOD COUNT 21.8 x10^3/uL (4.0-11.0)
--- NOTE | 2017-04-02 11:46 | RAD ---
Indication: Shortness of air. Time of exam 11:30 AM Correlation is made with prior chest from 03/19/2017. There has been development of infiltrate in the left perihilar and left basilar region when compared with prior examination from 2 weeks earlier. There is some volume loss in the left lung. The right lung is clear. No pneumothorax is seen. Impression: Development of left perihilar and left basilar infiltrate when compared with exam from 03/19/2017.
[2017-04-02 11:49] LABS: BLOOD UREA NITROGEN 19 mg/dL (8-26); BUN/CREATININE RATIO 27 (6-20); CALCIUM 9.6 mg/dL (8.5-10.1); CHLORIDE 94 mmol/L (98-107); CREATININE 0.7 mg/dL (0.7-1.3); GFR 133.8; GLUCOSE 158 mg/dL (70-99); POTASSIUM 4.7 mmol/L (3.5-5.1); SODIUM 137 mmol/L (136-145)
[2017-04-02 11:50] LABS: CARBON DIOXIDE > 45 mmol/L (21-32)
[2017-04-02 11:55] LABS: ALBUMIN 2.5 g/dL (3.4-5.0); ALBUMIN/GLOBULIN RATIO 0.6 (1.0-1.7); ALK PHOS 24 U/L (46-116); ALT (SGPT) 17 U/L (16-63); AST (SGOT) 16 U/L (15-37); MAGNESIUM 1.8 mg/dL (1.8-2.4); TOTAL BILIRUBIN 0.6 mg/dL (0.2-1.0)
[2017-04-02 12:01] LABS: BILIRUBIN,URINE SMALL (NEG); GLUCOSE,URINE NEGATIVE (NEG); NITRITE,URINE NEGATIVE (NEG); PH,URINE 5.5; PROTEIN,URINE 30 mg/dL (NEG-TRACE)
[2017-04-02 12:03] LABS: CREATINE KINASE 30 U/L (39-308)
[2017-04-02 12:04] LABS: CKMB MASS < 0.2 ng/mL (0.0-3.6)
[2017-04-02 12:13] LABS: BACTERIA,URINE FEW /HPF (0-FEW); OBC FLU VALID; RBC,URINE 0 /HPF (0-2)
[2017-04-02 12:14] LABS: SQUAMOUS EPITHELIAL CELL,UR OCC /LPF
[2017-04-02] MEDS ORDERED: ONDANSETRON PF 4 MG/2 ML VIAL. IV PRN (12:45)
[2017-04-02] MEDS ORDERED: ACETAMINOPHEN 325 MG TABLET. PO PRN (12:45)
[2017-04-02 12:46] LABS: PLT ESTIMATE ADEQUATE (ADEQUATE)
[2017-04-02] MEDS ORDERED: AZITHRMYCN 500MG IVPB FOR OMNI 250 ML IV ONE (13:00)
--- NOTE | 2017-04-02 13:25 | ACF ---
Admission Forms Criteria COPD Clinical Indications for Admission to Inpatient Care (Place 'X' for any and all applicable criteria): Admission is indicated for ANY ONE of the following (1)(2)(3): [X]I. Acute exacerbation by high-risk comorbidity (e.g., pneumonia, dysrhythmia, heart failure, pleural effusion, pneumothorax) or severe underlying COPD (e.g., steroid dependent) [ ]II. Inpatient admission required rather than observation care (see Chronic Obstructive Pulmonary Disease: Observation Care) because of ANY ONE of the following: [ ]a) New or pre-existing signs or symptoms of COPD (eg, dyspnea or Tachypnea at rest or with minimal activity) that persist despite outpatient and observation care treatment [ ]b) New-onset hypoxemia (room air SaO2 less than 90%, PO2 less than 60 mm Hg (8.0 kPa)) that persists despite outpatient and observation care treatment [ ]c) Worsening of pre-existing hypoxemia (eg, new or increased requirement for supplemental oxygen to maintain oxygenation at baseline level) that persists despite outpatient and observation care treatment, with oxygen treatment needs performable only in acute inpatient setting [ ]d) Hypercarbia (PCO2 greater than 40 mm Hg (5.3 kPa))-induced respiratory acidosis (pH less than 7.35) that persists despite outpatient and observation care treatment [ ]e) Supplemental oxygen or respiratory treatments for over 24 hours that are performable only in acute inpatient setting [ ]f) Chest tube placement with active evacuation (e.g., suction, drainage) (5) [ ]g) Other condition, treatment or monitoring requiring inpatient admission [ ]III. Planned invasive surgical or diagnostic procedures requiring acute- care hospitalization [ ]IV. Acute respiratory failure (e.g., uncompensated hypercarbia, severe hypoxemia) [ ]V. Severe comorbid condition (e.g., severe steroid myopathy, acute vertebral fracture) that has acutely worsened pulmonary function [ ]. Confusion state, lethargy, obtundation, stupor or coma Extended stay beyond goal length of stay may be needed for (31)(32): [ ]a ) Respiratory Failure. [ ]b) Severe or persisting hypoxemia or hypercarbia [ ]c) Severe or persistent dyspnea [ ]d) Comorbidities (e.g. chronic heart failure, atrial fibrillation with rapid response, pneumonia) [ ]e) Malnutrition The original [facility] content created by [facility] has been revised. The portions of the content which have been revised are identified through the use of italic text or in bold, and [facility] has neither reviewed nor approved the modified material. All other unmodified content is copyright [facility] Please see references footnoted in the original [facility] edition 2016 Admission Criteria Met?: Yes DEDRA KAUR April 02, 2017 13:25
--- NOTE | 2017-04-02 15:14 | EKG ---
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
--- NOTE | 2017-04-02 15:27 | PDOC ---
Provider Note Provider Note dictated JOHN BAIRES MD April 02, 2017 15:27
[2017-04-02] MEDS ORDERED: PIP/TAZO PER PHARMACY MC PRN (15:30)
--- NOTE | 2017-04-02 15:36 | PDOC1 ---
History and Physical Past Medical History Cardiovascular: HTN Pulmonary: COPD GI: GERD Renal/: Prostate Ca. Past Surgical History Past Surgical History: Total knee replacement Family History Family History: Hypertension Social History ALCOHOL: none Drugs: None Current Problem List Problem List Problems Medical Problems: (1) Acute and chronic respiratory failure ([id number]) Status: Acute (2) COPD with acute exacerbation Status: Acute (3) Hypoxia Status: Acute (4) Leukocytosis Status: Acute (5) Pneumonia Status: Acute Current Medications Current Medications Current Medications Medications (Trade) Dose Ordered Sig/Pierre Start Time Stop Time Status Last Admin Dose Admin Acetaminophen (Tylenol) 650 mg PRN Q4HRS PRN 04/02/17 12:45 04/03/17 12:44 Albuterol Sulfate (Ventolin Neb Soln) 15 mg 1X ONCE 04/02/17 11:15 04/02/17 11:22 DC 04/02/17 12:20 10 MG Albuterol/ Ipratropium (Duoneb) 3 ml RTQID 04/02/17 16:00 Azithromycin 250 ml @ 250 mls/hr 1X ONCE 04/02/17 13:00 04/02/17 13:59 DC 04/02/17 13:38 250 MLS/HR Ceftriaxone Sodium 50 ml @ 100 mls/hr 1X ONCE 04/02/17 13:00 04/02/17 13:29 DC 04/02/17 13:09 100 MLS/HR Enoxaparin Sodium (Lovenox 30mg Syringe) 30 mg Q24H 04/02/17 16:00 Ipratropium [place] (Atrovent) 0.5 mg 1X ONCE 04/02/17 11:15 04/02/17 11:22 DC 04/02/17 12:15 0.5 MG Methylprednisolone Sodium Succinate (Solu-Medrol 125mg Vial) 125 mg 1X ONCE 04/02/17 11:15 04/02/17 11:22 DC 04/02/17 11:36 125 MG Ondansetron HCl (Zofran) 4 mg PRN Q8HRS PRN 04/02/17 12:45 04/03/17 12:44 Piperacillin Sod/ Tazobactam Sod (Zosyn Per Pharmacy) 1 each PRN DAILY PRN 04/02/17 15:30 UNV Sodium Chloride 1,000 ml @ 1,000 mls/hr Q1H 04/02/17 11:12 04/02/17 12:11 DC 04/02/17 11:36 1,000 MLS/HR Sodium Chloride (Normal Saline Flush) 10 ml 1X ONCE 04/02/17 11:15 04/02/17 11:22 DC Vancomycin HCl (Vanco Per Pharmacy) 1 each PRN DAILY PRN 04/02/17 15:30 UNV Vancomycin HCl 1.25 gm/Sodium Chloride 250 ml @ 166.667 mls/hr 1X ONCE 04/02/17 16:00 04/02/17 17:29 Allergies Allergies Allergies Coded Allergies Type Severity Reaction Last Updated Verified lisinopril Allergy Intermediate 03/19/17 Yes ROS Review of System difficult to obtain as pt on BIPAP SOB SOME COUGH WEAKNESS Physical Exam Physical Exam GEN.: No apparent distress. Alert and oriented. ON BIPAP HEENT: Head is normocephalic, atraumatic NECK: Supple. NO JVD LUNGS: DECREASED BS HEART: RRR, S1, S2 present. Peripheral pulses intact ABDOMEN: Soft, nontender. Positive bowel sounds. EXTREMITIES: Without any cyanosis. NEUROLOGIC: Responding to questions. PSYCHIATRIC: ANXIOUS SKIN: dry Vitals Vitals Vital Signs Date Time Temp Pulse Resp B/P (MAP) Pulse Ox O2 Delivery O2 Flow Rate FiO2 04/02/17 15:00 99 20 112/67 (82) 95 BiPAP/CPAP 04/02/17 14:00 99.5 99.5 04/02/17 13:43 10.0 Labs Labs Laboratory Tests Test 04/02/17 11:00 04/02/17 11:04 04/02/17 11:34 04/02/17 11:48 Lactic Acid Level 1.6 mmol/L (0.4-2.0) White Blood Count 21.8 x10^3/uL (4.0-11.0) Red Blood Count 3.96 x10^6/uL (4.30-5.70) Hemoglobin 11.4 g/dL (13.0-17.5) Hematocrit 36.0 % (39.0-53.0) Mean Corpuscular Volume 91 fL (79-100) Mean Corpuscular Hemoglobin 29 pg (25-35) Mean Corpuscular Hemoglobin Concent 32 g/dL (31-37) Red Cell Distribution Width 17.0 % (11.5-14.5) Platelet Count 220 x10^3/uL (140-400) Neutrophils (%) (Auto) 89 % (31-73) Lymphocytes (%) (Auto) 4 % (24-48) Monocytes (%) (Auto) 6 % (0-9) Eosinophils (%) (Auto) 0 % (0-3) Basophils (%) (Auto) 1 % (0-3) Neutrophils # (Auto) 19.4 x10^3uL (1.8-7.7) Lymphocytes # (Auto) 0.9 x10^3/uL (1.0-4.8) Monocytes # (Auto) 1.4 x10^3/uL (0.0-1.1) Eosinophils # (Auto) 0.0 x10^3/uL (0.0-0.7) Basophils # (Auto) 0.1 x10^3/uL (0.0-0.2) Segmented Neutrophils % 73 % (35-66) Band Neutrophils % 19 % (0-9) Lymphocytes % 4 % (24-48) Monocytes % 3 % (0-10) Metamyelocytes % 1 % (0-0) Dohle Bodies Present Platelet Estimate Adequate (ADEQUATE) Sodium Level 137 mmol/L (136-145) Potassium Level 4.7 mmol/L (3.5-5.1) Chloride Level 94 mmol/L (98-107) Carbon Dioxide Level > 45 mmol/L (21-32) Anion Gap (6-14) Blood Urea Nitrogen 19 mg/dL (8-26) Creatinine 0.7 mg/dL (0.7-1.3) Estimated GFR (Cockcroft-Gault) 133.8 BUN/Creatinine Ratio 27 (6-20) Glucose Level 158 mg/dL (70-99) Calcium Level 9.6 mg/dL (8.5-10.1) Magnesium Level 1.8 mg/dL (1.8-2.4) Total Bilirubin 0.6 mg/dL (0.2-1.0) Aspartate Amino Transf (AST/SGOT) 16 U/L (15-37) Alanine Aminotransferase (ALT/SGPT) 17 U/L (16-63) Alkaline Phosphatase 24 U/L (46-116) Creatine Kinase 30 U/L (39-308) Creatine Kinase MB (Mass) < 0.2 ng/mL (0.0-3.6) Creatine Kinase MB Relative Index % (0-4) KJ-Nny-S-Type Natriuretic Peptide 334 pg/mL (0-124) Total Protein 7.0 g/dL (6.4-8.2) Albumin 2.5 g/dL (3.4-5.0) Albumin/Globulin Ratio 0.6 (1.0-1.7) Thyroid Stimulating Hormone (TSH) 0.699 uIU/mL (0.358-3.74) Bedside Troponin I 0.02 ng/ml (<0.08) Urine Collection Type Unknown Urine Color Olesya Urine Clarity Cloudy Urine pH 5.5 Urine Specific [place] 1.025 Urine Protein 30 mg/dL (NEG-TRACE) Urine Glucose (UA) Negative mg/dL (NEG) Urine Ketones (Stick) Trace mg/dL (NEG) Urine Blood Negative (NEG) Urine Nitrite Negative (NEG) Urine Bilirubin Small (NEG) Urine Urobilinogen Dipstick 1.0 mg/dL (0.2 mg/dL) Urine Leukocyte Esterase Small (NEG) Urine RBC 0 /HPF (0-2) Urine WBC 5-10 /HPF (0-4) Urine Squamous Epithelial Cells Occ /LPF Urine Transitional Epithelial Cells Occ /LPF Urine Bacteria Few /HPF (0-FEW) Urine Hyaline Casts Occasional /HPF Urine Granular Casts Occasional /HPF Urine Mucus Marked /LPF Influenza Type A Antigen Negative (NEGATIVE) Influenza Type B Antigen Negative (NEGATIVE) Laboratory Tests Test 04/02/17 11:00 04/02/17 11:04 04/02/17 11:34 04/02/17 11:48 Lactic Acid Level 1.6 mmol/L (0.4-2.0) White Blood Count 21.8 x10^3/uL (4.0-11.0) Red Blood Count 3.96 x10^6/uL (4.30-5.70) Hemoglobin 11.4 g/dL (13.0-17.5) Hematocrit 36.0 % (39.0-53.0) Mean Corpuscular Volume 91 fL (79-100) Mean Corpuscular Hemoglobin 29 pg (25-35) Mean Corpuscular Hemoglobin Concent 32 g/dL (31-37) Red Cell Distribution Width 17.0 % (11.5-14.5) Platelet Count 220 x10^3/uL (140-400) Neutrophils (%) (Auto) 89 % (31-73) Lymphocytes (%) (Auto) 4 % (24-48) Monocytes (%) (Auto) 6 % (0-9) Eosinophils (%) (Auto) 0 % (0-3) Basophils (%) (Auto) 1 % (0-3) Neutrophils # (Auto) 19.4 x10^3uL (1.8-7.7) Lymphocytes # (Auto) 0.9 x10^3/uL (1.0-4.8) Monocytes # (Auto) 1.4 x10^3/uL (0.0-1.1) Eosinophils # (Auto) 0.0 x10^3/uL (0.0-0.7) Basophils # (Auto) 0.1 x10^3/uL (0.0-0.2) Segmented Neutrophils % 73 % (35-66) Band Neutrophils % 19 % (0-9) Lymphocytes % 4 % (24-48) Monocytes % 3 % (0-10) Metamyelocytes % 1 % (0-0) Dohle Bodies Present Platelet Estimate Adequate (ADEQUATE) Sodium Level 137 mmol/L (136-145) Potassium Level 4.7 mmol/L (3.5-5.1) Chloride Level 94 mmol/L (98-107) Carbon Dioxide Level > 45 mmol/L (21-32) Anion Gap (6-14) Blood Urea Nitrogen 19 mg/dL (8-26) Creatinine 0.7 mg/dL (0.7-1.3) Estimated GFR (Cockcroft-Gault) 133.8 BUN/Creatinine Ratio 27 (6-20) Glucose Level 158 mg/dL (70-99) Calcium Level 9.6 mg/dL (8.5-10.1) Magnesium Level 1.8 mg/dL (1.8-2.4) Total Bilirubin 0.6 mg/dL (0.2-1.0) Aspartate Amino Transf (AST/SGOT) 16 U/L (15-37) Alanine Aminotransferase (ALT/SGPT) 17 U/L (16-63) Alkaline Phosphatase 24 U/L (46-116) Creatine Kinase 30 U/L (39-308) Creatine Kinase MB (Mass) < 0.2 ng/mL (0.0-3.6) Creatine Kinase MB Relative Index % (0-4) VP-Nfy-E-Type Natriuretic Peptide 334 pg/mL (0-124) Total Protein 7.0 g/dL (6.4-8.2) Albumin 2.5 g/dL (3.4-5.0) Albumin/Globulin Ratio 0.6 (1.0-1.7) Thyroid Stimulating Hormone (TSH) 0.699 uIU/mL (0.358-3.74) Bedside Troponin I 0.02 ng/ml (<0.08) Urine Collection Type Unknown Urine Color [place] Urine Clarity Cloudy Urine pH 5.5 Urine Specific [place] 1.025 Urine Protein 30 mg/dL (NEG-TRACE) Urine Glucose (UA) Negative mg/dL (NEG) Urine Ketones (Stick) Trace mg/dL (NEG) Urine Blood Negative (NEG) Urine Nitrite Negative (NEG) Urine Bilirubin Small (NEG) Urine Urobilinogen Dipstick 1.0 mg/dL (0.2 mg/dL) Urine Leukocyte Esterase Small (NEG) Urine RBC 0 /HPF (0-2) Urine WBC 5-10 /HPF (0-4) Urine Squamous Epithelial Cells Occ /LPF Urine Transitional Epithelial Cells Occ /LPF Urine Bacteria Few /HPF (0-FEW) Urine Hyaline Casts Occasional /HPF Urine Granular Casts Occasional /HPF Urine Mucus Marked /LPF Influenza Type A Antigen Negative (NEGATIVE) Influenza Type B Antigen Negative (NEGATIVE) VTE Prophylaxis Ordered VTE Prophylaxis Devices: Yes VTE Pharmacological Prophylaxi: Yes SHRADDHA TANG MD April 02, 2017 15:36
[2017-04-02 15:46] LABS: HCO3 ABG 44 mmol/L (21-28); PH ABG 7.36 (7.35-7.45); PO2 ABG 54 mmHg (65-108); SAT O2 ABG 85 % (92-99)
[2017-04-02 15:57] LABS: FIO2 ABG 45; PCO2 ABG 79 mmHg (35-46)
--- NOTE | 2017-04-02 15:59 | CONS ---
DATE OF CONSULTATION: 04/02/2017 ATTENDING PHYSICIAN: Dr. Yu. REASON FOR CONSULTATION: Respiratory failure. HISTORY OF PRESENT ILLNESS: The patient is a 71-year-old male who is very well known to us. He has history of end-stage COPD with chronic hypoxic and hypercapnic respiratory failure. He has been on BiPAP and has required frequent hospitalizations. He was discharged back to the skilled care facility. He was brought back by EMS from the half-way with shortness of breath and altered mental status. The patient is unable to give much history as he is on BiPAP and is sleepy, but he is arousable. No reported chest pain. No headache. No nausea or vomiting was reported. I have reviewed the patient's chest x-ray. He has developed new infiltrates involving the left perihilar and left basilar area. His chest x-ray on 03/19/2017 was clear. He has been placed on BiPAP. However, ABGs have not been obtained yet. PAST MEDICAL HISTORY: 1. End-stage chronic obstructive pulmonary disease. 2. Chronic hypoxic and hypercapnic respiratory failure. 3. Malnourishment. PAST SURGICAL HISTORY: Knee replacement, prostate, wrist, and knee surgery. ALLERGIES: LISINOPRIL. MEDICATIONS: Medications that were given in the ER were reviewed. REVIEW OF SYSTEMS: Limited and cannot be obtained from the patient, but pertinent positive discussed in my history of present illness. SOCIAL HISTORY: Has a long history of tobacco use. PHYSICAL EXAMINATION: GENERAL: He is arousable, but becomes sleepy again while on BiPAP. VITAL SIGNS: T-max of 99.5, blood pressure is 169/63, pulse oximetry is 95% on current FiO2 with BiPAP. HEENT: Sclerae are nonicteric. NECK: Supple. LUNGS: Diminished breath sounds bilaterally. CARDIOVASCULAR: Regular rate and rhythm. ABDOMEN: Soft. EXTREMITIES: With no pitting edema. LABORATORY DATA: Reviewed. Bicarbonate more than 45, BUN 19, and creatinine 0.7. White cell count 21.8, hemoglobin 11.4, and platelets are 220. IMPRESSION: 1. Acute on chronic hypercapnic and hypoxic respiratory failure secondary to healthcare-associated pneumonia involving the left lung. 2. Leukocytosis secondary to new pneumonia. 3. Abnormal chest x-ray with new infiltrates in the left perihilar and left lower lobes consistent with pneumonia. 4. Mild dehydration. 5. 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 RECOMMENDATIONS: 1. Obtain stat ABGs. 2. Broad-spectrum antibiotics to cover for healthcare-associated pneumonia. We will place him on vancomycin and Zosyn. 3. Follow chest x-rays. 4. Follow ABGs and make necessary adjustment. 5. Bronchodilators. 6. Deep venous thrombosis prophylaxis. 7. Hold off on systemic steroids. 8. Discussed with RN and RT. We will follow along with you. Critical Care Time: 38 minutes. JOHN BAIRES MD DR: LÓPEZ/sunny JOB#: [id number] / [id number] EAN
[2017-04-02] MEDS ORDERED: ENOXAPARIN 30 MG/0.3 ML SYRINGE. SQ SCH (16:00)
[2017-04-02] MEDS ORDERED: VANCOMYCIN 1.25 GM in IV NORMAL SALINE 250ML 250 ML IV ONE (16:00)
[2017-04-02] MEDS: IPRATRPIUM/ALBUTEROL 0.5/2.5MG 3 ML NEBU. NEB SCH ×2 (16:04→20:44)
[2017-04-02] MEDS: PIPERACILLIN/TAZOBACTAM 4.5 GM in IV NORMAL SALINE 100ML 100 ML IV SCH ×2 (16:09→23:25)
[2017-04-02] MEDS: IV NORMAL SALINE 1000ML BAG 1,000 ML IV SCH (16:10)
[2017-04-02] MEDS: VANCOMYCIN PER PHARMACY MC PRN (16:20)
[2017-04-02] MEDS ORDERED: levOFLOXacin PER PHARMACY 1 EACH EACH MC PRN (20:30)
[2017-04-02] MEDS: methylPREDNISolone SOD SUCC PF 40 MG/ML VIAL. IV SCH (23:25)
[2017-04-03] VITALS (12 sets, daily range): BP systolic 90–138; BP diastolic 50–74
[2017-04-03] MEDS: VANCOMYCIN 1 GM in IV NORMAL SALINE 250ML 250 ML IV SCH ×2 (03:28→16:11)
[2017-04-03] MEDS: PIPERACILLIN/TAZOBACTAM 4.5 GM in IV NORMAL SALINE 100ML 100 ML IV SCH ×4 (05:26→23:52)
[2017-04-03] MEDS: IV NORMAL SALINE 1000ML BAG 1,000 ML IV SCH ×2 (05:26→23:54)
[2017-04-03] MEDS: methylPREDNISolone SOD SUCC PF 40 MG/ML VIAL. IV SCH (06:00)
[2017-04-03] MEDS: IPRATRPIUM/ALBUTEROL 0.5/2.5MG 3 ML NEBU. NEB SCH ×4 (07:23→20:10)
[2017-04-03 07:28] LABS: HCO3 ABG 38 mmol/L (21-28); PCO2 ABG 55 mmHg (35-46); PH ABG 7.45 (7.35-7.45); PO2 ABG 71 mmHg (65-108); SAT O2 ABG 94 % (92-99)
[2017-04-03 07:35] LABS: FIO2 ABG 50
[2017-04-03] MEDS ORDERED: ALBUTEROL SULFATE 2.5 MG/3 ML NEBU. NEB PRN (08:30)
[2017-04-03] MEDS ORDERED: IPRATRPIUM/ALBUTEROL 0.5/2.5MG 3 ML NEBU. NEB PRN (08:30)
[2017-04-03] MEDS ORDERED: POLYETHYLENE GLYCOL 3350 17 GM PACKET. PO PRN (08:30)
[2017-04-03] MEDS ORDERED: FLUTICASONE 50MCG/NASAL SPRAY 16GM BOTTLE. NS PRN (08:30)
--- NOTE | 2017-04-03 08:41 | PDOC ---
PROGRESS NOTES Chief Complaint Chief Complaint Acute hypoxic, hypercapnic respir failure ASSESSMENT AND PLAN: 1. LLL PNA: HCAP; broad spectrum coverage with Zosyn, Vanco 2. COPD: nebs, suppl O2. steroids given in ER, but will hold as per Dr Vaughn' s rec. 3. Leukocytosis: reactive 2/2 infection (and steroids). monitor 4. Anemia: mild, chronic. prob multifactorial. anemia profile to r/o vitamin deficiencies 5. Dehydration: mild at POA. resolved 6. DM2: diet controlled, but unmasked with steroids. ISS 7. Prophylaxis: PPI, lovenox History of Present Illness History of Present Illness SOB, min verbally responsive Vitals Vitals Vital Signs Date Time Temp Pulse Resp B/P (MAP) Pulse Ox O2 Delivery O2 Flow Rate FiO2 04/03/17 07:15 100 BiPAP/CPAP 04/03/17 06:00 79 20 113/71 (85) 04/03/17 04:00 97.9 97.9 04/02/17 16:00 10.0 Physical Exam General: No acute distress Heart: Regular rate Lungs: Clear, Other Abdomen: Normal bowel sounds, No tenderness, Other (cachectic) Extremities: No edema Labs LABS Laboratory Tests Test 04/02/17 11:00 04/02/17 11:04 04/02/17 11:34 04/02/17 11:48 Lactic Acid Level 1.6 mmol/L (0.4-2.0) White Blood Count 21.8 x10^3/uL (4.0-11.0) Red Blood Count 3.96 x10^6/uL (4.30-5.70) Hemoglobin 11.4 g/dL (13.0-17.5) Hematocrit 36.0 % (39.0-53.0) Mean Corpuscular Volume 91 fL (79-100) Mean Corpuscular Hemoglobin 29 pg (25-35) Mean Corpuscular Hemoglobin Concent 32 g/dL (31-37) Red Cell Distribution Width 17.0 % (11.5-14.5) Platelet Count 220 x10^3/uL (140-400) Neutrophils (%) (Auto) 89 % (31-73) Lymphocytes (%) (Auto) 4 % (24-48) Monocytes (%) (Auto) 6 % (0-9) Eosinophils (%) (Auto) 0 % (0-3) Basophils (%) (Auto) 1 % (0-3) Neutrophils # (Auto) 19.4 x10^3uL (1.8-7.7) Lymphocytes # (Auto) 0.9 x10^3/uL (1.0-4.8) Monocytes # (Auto) 1.4 x10^3/uL (0.0-1.1) Eosinophils # (Auto) 0.0 x10^3/uL (0.0-0.7) Basophils # (Auto) 0.1 x10^3/uL (0.0-0.2) Segmented Neutrophils % 73 % (35-66) Band Neutrophils % 19 % (0-9) Lymphocytes % 4 % (24-48) Monocytes % 3 % (0-10) Metamyelocytes % 1 % (0-0) Dohle Bodies Present Platelet Estimate Adequate (ADEQUATE) Sodium Level 137 mmol/L (136-145) Potassium Level 4.7 mmol/L (3.5-5.1) Chloride Level 94 mmol/L (98-107) Carbon Dioxide Level > 45 mmol/L (21-32) Anion Gap (6-14) Blood Urea Nitrogen 19 mg/dL (8-26) Creatinine 0.7 mg/dL (0.7-1.3) Estimated GFR (Cockcroft-Gault) 133.8 BUN/Creatinine Ratio 27 (6-20) Glucose Level 158 mg/dL (70-99) Calcium Level 9.6 mg/dL (8.5-10.1) Magnesium Level 1.8 mg/dL (1.8-2.4) Total Bilirubin 0.6 mg/dL (0.2-1.0) Aspartate Amino Transf (AST/SGOT) 16 U/L (15-37) Alanine Aminotransferase (ALT/SGPT) 17 U/L (16-63) Alkaline Phosphatase 24 U/L (46-116) Creatine Kinase 30 U/L (39-308) Creatine Kinase MB (Mass) < 0.2 ng/mL (0.0-3.6) Creatine Kinase MB Relative Index % (0-4) CJ-Zrg-W-Type Natriuretic Peptide 334 pg/mL (0-124) Total Protein 7.0 g/dL (6.4-8.2) Albumin 2.5 g/dL (3.4-5.0) Albumin/Globulin Ratio 0.6 (1.0-1.7) Thyroid Stimulating Hormone (TSH) 0.699 uIU/mL (0.358-3.74) Bedside Troponin I 0.02 ng/ml (<0.08) Urine Collection Type Unknown Urine Color Olesya Urine Clarity Cloudy Urine pH 5.5 Urine Specific Mcgregor 1.025 Urine Protein 30 mg/dL (NEG-TRACE) Urine Glucose (UA) Negative mg/dL (NEG) Urine Ketones (Stick) Trace mg/dL (NEG) Urine Blood Negative (NEG) Urine Nitrite Negative (NEG) Urine Bilirubin Small (NEG) Urine Urobilinogen Dipstick 1.0 mg/dL (0.2 mg/dL) Urine Leukocyte Esterase Small (NEG) Urine RBC 0 /HPF (0-2) Urine WBC 5-10 /HPF (0-4) Urine Squamous Epithelial Cells Occ /LPF Urine Transitional Epithelial Cells Occ /LPF Urine Bacteria Few /HPF (0-FEW) Urine Hyaline Casts Occasional /HPF Urine Granular Casts Occasional /HPF Urine Mucus Marked /LPF Influenza Type A Antigen Negative (NEGATIVE) Influenza Type B Antigen Negative (NEGATIVE) Test 04/02/17 14:45 04/02/17 15:37 04/02/17 18:40 04/03/17 07:00 Nasal Screen MRSA (PCR) Negative (Negative) O2 Saturation 85 % (92-99) 94 % (92-99) Arterial Blood pH 7.36 (7.35-7.45) 7.45 (7.35-7.45) Arterial Blood pCO2 at Patient Temp 79 mmHg (35-46) 55 mmHg (35-46) Arterial Blood pO2 at Patient Temp 54 mmHg (65-108) 71 mmHg (65-108) Arterial Blood HCO3 44 mmol/L (21-28) 38 mmol/L (21-28) Arterial Blood Base Excess 15 mmol/L (-3-3) 12 mmol/L (-3-3) FiO2 45 50 Troponin I Quantitative < 0.017 ng/mL (0.000-0.055) YO SNOWDEN MD April 03, 2017 08:41
[2017-04-03] MEDS ORDERED: MAGNESIUM HYDROXIDE 2,400 MG/30 ML ORAL.SUSP. PO PRN (08:45)
[2017-04-03] MEDS ORDERED: DEXTROSE 50% 25 GM / 50ML DISP.SYRIN. IV PRN (08:45)
[2017-04-03] MEDS ORDERED: oxyCODONE IR 5 MG TABLET PO PRN (08:45)
[2017-04-03] MEDS: VANCOMYCIN PER PHARMACY MC PRN (08:52)
[2017-04-03 08:59] LABS: CALCIUM 8.8 mg/dL (8.5-10.1); CREATININE 0.7 mg/dL (0.7-1.3); GFR 133.8; POTASSIUM 3.7 mmol/L (3.5-5.1)
[2017-04-03] MEDS: INSULIN ASPART 300 UNITS/3 ML INSULN.PEN SQ SCH ×3 (09:00→17:00)
[2017-04-03] MEDS: BISACODYL 5 MG TABLET.DR. PO SCH (09:00)
[2017-04-03 09:02] LABS: % SAT IRON 11 % (15-34); IRON,SERUM 21 ug/dL (65-175)
[2017-04-03 09:38] LABS: MAGNESIUM 1.7 mg/dL (1.8-2.4)
--- NOTE | 2017-04-03 09:41 | HP ---
ADMIT DATE: 04/02/2017 CHIEF COMPLAINT: Respiratory failure, shortness of breath. HISTORY OF PRESENT ILLNESS: A 71-year-old -[place] male patient with severe end-stage COPD, who was recently admitted to the hospital and later he was discharged to a group home facility/[facility]. Reportedly, the patient was using BiPAP; however, they were having some issues with BiPAP machine. Noted to have worsening shortness of breath and hypoxic and hypercapnic respiratory failure. At the time of arrival, his blood gas showed pCO2 is at 72 and pO2 of 54 at 40% oxygen and the patient was requiring BiPAP and steroids. At the time of my examination, after some time with BiPAP, clinically the patient is getting better and is nodding his head and answering questions. PAST MEDICAL HISTORY: End-stage COPD, chronic hypoxic and hypercapnic respiratory failure, malnourishment. PAST SURGICAL HISTORY: Knee replacement, prostate, wrist and knee surgery. ALLERGIES: LISINOPRIL. MEDICATIONS: Reviewed, reconciled. Please see MRAD. REVIEW OF SYSTEMS: Please see my electronic H and P. PHYSICAL EXAMINATION: Please see my electronic H and P. SOCIAL HISTORY: Lives in a [facility] now and prior history of nicotine use. LABORATORY DATA: CBC: WBC 21.8, hemoglobin is 11.6, MCV is 91, platelets are 220. Chemistry: Sodium is 137, potassium 4.1, chloride is 94, carbon dioxide 45, creatinine is 0.7, BUN ____. ProBNP 334. Blood gases, pH is 7.36, pCO2 of 79, pO2 of 54, base excess 15, FiO2 of 45%. IMAGING STUDIES: Chest x-ray: Development of left perihilar and left basilar infiltrates. ASSESSMENT: 1. Acute on chronic hypercapnic, hypoxic respiratory failure, suspected healthcare-associated pneumonia. 2. Elevated WBC count, likely due to pneumonia. 3. Dehydration. 4. Severe malnutrition. 5. End-stage chronic obstructive pulmonary disease. PLAN: 1. He has been placed on Zosyn and vancomycin. We will continue antibiotics, periodic nebulizations. 2. Vancomycin, pharmacy to dose. 3. Currently, the patient is on BiPAP and requested DNR. 4. DVT prophylaxis. 5. ABGs in the a.m. 6. Pulmonology has been following the patient. 7. I will add steroids. 8. Also will add Levaquin. 9. Overall prognosis poor. SHRADDHA TANG MD DR: CHEIKH/sunny JOB#: [id number] / [id number] EAN
[2017-04-03 09:57] LABS: BASO % 0 % (0-3); EOS % 0 % (0-3); HEMATOCRIT 30.6 % (39.0-53.0); HEMOGLOBIN 9.6 g/dL (13.0-17.5); LYMPH # 1.2 x10^3/uL (1.0-4.8); LYMPH % 7 % (24-48); MEAN CORPUSCULAR HEMOGLOBIN 29 pg (25-35); MEAN CORPUSCULAR HGB CONC 31 g/dL (31-37); MEAN CORPUSCULAR VOLUME 91 fL (79-100); MONO % 4 % (0-9); NEUT % 89 % (31-73); PLATELET COUNT 184 x10^3/uL (140-400); RED BLOOD COUNT 3.34 x10^6/uL (4.30-5.70); RED CELL DISTRIBUTION WIDTH 16.9 % (11.5-14.5)
[2017-04-03] MEDS: PANTOPRAZOLE 40 MG TABLET.DR. PO SCH (10:27)
--- NOTE | 2017-04-03 11:05 | PDOC ---
PULMONARY PROGRESS NOTES Subjective fully awake, off BIPAP Vitals Vital Signs Date Time Temp Pulse Resp B/P (MAP) Pulse Ox O2 Delivery O2 Flow Rate FiO2 04/03/17 10:27 100 114/69 04/03/17 08:00 Nasal Cannula 3.0 04/03/17 07:15 100 04/03/17 07:00 20 04/03/17 04:00 97.9 97.9 General: Alert, No acute distress, Mild Distress Lungs: Other (decrease bs) Cardiovascular: S1, S2 Abdomen: Soft, Non-tender Neuro Exam: Alert Extremities: No Edema Skin: Warm Labs Laboratory Tests Test 04/02/17 11:00 04/02/17 11:04 04/02/17 11:34 04/02/17 11:48 Lactic Acid Level 1.6 mmol/L (0.4-2.0) White Blood Count 21.8 x10^3/uL (4.0-11.0) Red Blood Count 3.96 x10^6/uL (4.30-5.70) Hemoglobin 11.4 g/dL (13.0-17.5) Hematocrit 36.0 % (39.0-53.0) Mean Corpuscular Volume 91 fL (79-100) Mean Corpuscular Hemoglobin 29 pg (25-35) Mean Corpuscular Hemoglobin Concent 32 g/dL (31-37) Red Cell Distribution Width 17.0 % (11.5-14.5) Platelet Count 220 x10^3/uL (140-400) Neutrophils (%) (Auto) 89 % (31-73) Lymphocytes (%) (Auto) 4 % (24-48) Monocytes (%) (Auto) 6 % (0-9) Eosinophils (%) (Auto) 0 % (0-3) Basophils (%) (Auto) 1 % (0-3) Neutrophils # (Auto) 19.4 x10^3uL (1.8-7.7) Lymphocytes # (Auto) 0.9 x10^3/uL (1.0-4.8) Monocytes # (Auto) 1.4 x10^3/uL (0.0-1.1) Eosinophils # (Auto) 0.0 x10^3/uL (0.0-0.7) Basophils # (Auto) 0.1 x10^3/uL (0.0-0.2) Segmented Neutrophils % 73 % (35-66) Band Neutrophils % 19 % (0-9) Lymphocytes % 4 % (24-48) Monocytes % 3 % (0-10) Metamyelocytes % 1 % (0-0) Dohle Bodies Present Platelet Estimate Adequate (ADEQUATE) Sodium Level 137 mmol/L (136-145) Potassium Level 4.7 mmol/L (3.5-5.1) Chloride Level 94 mmol/L (98-107) Carbon Dioxide Level > 45 mmol/L (21-32) Anion Gap (6-14) Blood Urea Nitrogen 19 mg/dL (8-26) Creatinine 0.7 mg/dL (0.7-1.3) Estimated GFR (Cockcroft-Gault) 133.8 BUN/Creatinine Ratio 27 (6-20) Glucose Level 158 mg/dL (70-99) Calcium Level 9.6 mg/dL (8.5-10.1) Magnesium Level 1.8 mg/dL (1.8-2.4) Total Bilirubin 0.6 mg/dL (0.2-1.0) Aspartate Amino Transf (AST/SGOT) 16 U/L (15-37) Alanine Aminotransferase (ALT/SGPT) 17 U/L (16-63) Alkaline Phosphatase 24 U/L (46-116) Creatine Kinase 30 U/L (39-308) Creatine Kinase MB (Mass) < 0.2 ng/mL (0.0-3.6) Creatine Kinase MB Relative Index % (0-4) MN-Jli-P-Type Natriuretic Peptide 334 pg/mL (0-124) Total Protein 7.0 g/dL (6.4-8.2) Albumin 2.5 g/dL (3.4-5.0) Albumin/Globulin Ratio 0.6 (1.0-1.7) Thyroid Stimulating Hormone (TSH) 0.699 uIU/mL (0.358-3.74) Bedside Troponin I 0.02 ng/ml (<0.08) Urine Collection Type Unknown Urine Color Olesya Urine Clarity Cloudy Urine pH 5.5 Urine Specific [place] 1.025 Urine Protein 30 mg/dL (NEG-TRACE) Urine Glucose (UA) Negative mg/dL (NEG) Urine Ketones (Stick) Trace mg/dL (NEG) Urine Blood Negative (NEG) Urine Nitrite Negative (NEG) Urine Bilirubin Small (NEG) Urine Urobilinogen Dipstick 1.0 mg/dL (0.2 mg/dL) Urine Leukocyte Esterase Small (NEG) Urine RBC 0 /HPF (0-2) Urine WBC 5-10 /HPF (0-4) Urine Squamous Epithelial Cells Occ /LPF Urine Transitional Epithelial Cells Occ /LPF Urine Bacteria Few /HPF (0-FEW) Urine Hyaline Casts Occasional /HPF Urine Granular Casts Occasional /HPF Urine Mucus Marked /LPF Influenza Type A Antigen Negative (NEGATIVE) Influenza Type B Antigen Negative (NEGATIVE) Test 04/02/17 14:45 04/02/17 15:37 04/02/17 18:40 04/03/17 07:00 Nasal Screen MRSA (PCR) Negative (Negative) O2 Saturation 85 % (92-99) 94 % (92-99) Arterial Blood pH 7.36 (7.35-7.45) 7.45 (7.35-7.45) Arterial Blood pCO2 at Patient Temp 79 mmHg (35-46) 55 mmHg (35-46) Arterial Blood pO2 at Patient Temp 54 mmHg (65-108) 71 mmHg (65-108) Arterial Blood HCO3 44 mmol/L (21-28) 38 mmol/L (21-28) Arterial Blood Base Excess 15 mmol/L (-3-3) 12 mmol/L (-3-3) FiO2 45 50 Troponin I Quantitative < 0.017 ng/mL (0.000-0.055) Test 04/03/17 08:40 White Blood Count 16.0 x10^3/uL (4.0-11.0) Red Blood Count 3.34 x10^6/uL (4.30-5.70) Hemoglobin 9.6 g/dL (13.0-17.5) Hematocrit 30.6 % (39.0-53.0) Mean Corpuscular Volume 91 fL (79-100) Mean Corpuscular Hemoglobin 29 pg (25-35) Mean Corpuscular Hemoglobin Concent 31 g/dL (31-37) Red Cell Distribution Width 16.9 % (11.5-14.5) Platelet Count 184 x10^3/uL (140-400) Neutrophils (%) (Auto) 89 % (31-73) Lymphocytes (%) (Auto) 7 % (24-48) Monocytes (%) (Auto) 4 % (0-9) Eosinophils (%) (Auto) 0 % (0-3) Basophils (%) (Auto) 0 % (0-3) Neutrophils # (Auto) 14.2 x10^3uL (1.8-7.7) Lymphocytes # (Auto) 1.2 x10^3/uL (1.0-4.8) Monocytes # (Auto) 0.6 x10^3/uL (0.0-1.1) Eosinophils # (Auto) 0.0 x10^3/uL (0.0-0.7) Basophils # (Auto) 0.0 x10^3/uL (0.0-0.2) Reticulocyte Count (auto) 0.8 % (0.5-2.5) Sodium Level 139 mmol/L (136-145) Potassium Level 3.7 mmol/L (3.5-5.1) Chloride Level 99 mmol/L (98-107) Carbon Dioxide Level 39 mmol/L (21-32) Anion Gap 1 (6-14) Blood Urea Nitrogen 16 mg/dL (8-26) Creatinine 0.7 mg/dL (0.7-1.3) Estimated GFR (Cockcroft-Gault) 133.8 Glucose Level 130 mg/dL (70-99) Calcium Level 8.8 mg/dL (8.5-10.1) Magnesium Level 1.7 mg/dL (1.8-2.4) Iron Level 21 ug/dL (65-175) Total Iron Binding Capacity 196 ug/dL (250-450) Iron Saturation 11 % (15-34) Ferritin 1377 ng/mL (26-388) Laboratory Tests Test 04/02/17 11:04 04/02/17 11:34 04/02/17 11:48 04/02/17 14:45 White Blood Count 21.8 x10^3/uL (4.0-11.0) Red Blood Count 3.96 x10^6/uL (4.30-5.70) Hemoglobin 11.4 g/dL (13.0-17.5) Hematocrit 36.0 % (39.0-53.0) Mean Corpuscular Volume 91 fL (79-100) Mean Corpuscular Hemoglobin 29 pg (25-35) Mean Corpuscular Hemoglobin Concent 32 g/dL (31-37) Red Cell Distribution Width 17.0 % (11.5-14.5) Platelet Count 220 x10^3/uL (140-400) Neutrophils (%) (Auto) 89 % (31-73) Lymphocytes (%) (Auto) 4 % (24-48) Monocytes (%) (Auto) 6 % (0-9) Eosinophils (%) (Auto) 0 % (0-3) Basophils (%) (Auto) 1 % (0-3) Neutrophils # (Auto) 19.4 x10^3uL (1.8-7.7) Lymphocytes # (Auto) 0.9 x10^3/uL (1.0-4.8) Monocytes # (Auto) 1.4 x10^3/uL (0.0-1.1) Eosinophils # (Auto) 0.0 x10^3/uL (0.0-0.7) Basophils # (Auto) 0.1 x10^3/uL (0.0-0.2) Segmented Neutrophils % 73 % (35-66) Band Neutrophils % 19 % (0-9) Lymphocytes % 4 % (24-48) Monocytes % 3 % (0-10) Metamyelocytes % 1 % (0-0) Dohle Bodies Present Platelet Estimate Adequate (ADEQUATE) Sodium Level 137 mmol/L (136-145) Potassium Level 4.7 mmol/L (3.5-5.1) Chloride Level 94 mmol/L (98-107) Carbon Dioxide Level > 45 mmol/L (21-32) Anion Gap (6-14) Blood Urea Nitrogen 19 mg/dL (8-26) Creatinine 0.7 mg/dL (0.7-1.3) Estimated GFR (Cockcroft-Gault) 133.8 BUN/Creatinine Ratio 27 (6-20) Glucose Level 158 mg/dL (70-99) Calcium Level 9.6 mg/dL (8.5-10.1) Magnesium Level 1.8 mg/dL (1.8-2.4) Total Bilirubin 0.6 mg/dL (0.2-1.0) Aspartate Amino Transf (AST/SGOT) 16 U/L (15-37) Alanine Aminotransferase (ALT/SGPT) 17 U/L (16-63) Alkaline Phosphatase 24 U/L (46-116) Creatine Kinase 30 U/L (39-308) Creatine Kinase MB (Mass) < 0.2 ng/mL (0.0-3.6) Creatine Kinase MB Relative Index % (0-4) KQ-Ueg-L-Type Natriuretic Peptide 334 pg/mL (0-124) Total Protein 7.0 g/dL (6.4-8.2) Albumin 2.5 g/dL (3.4-5.0) Albumin/Globulin Ratio 0.6 (1.0-1.7) Thyroid Stimulating Hormone (TSH) 0.699 uIU/mL (0.358-3.74) Bedside Troponin I 0.02 ng/ml (<0.08) Urine Collection Type Unknown Urine Color Olesya Urine Clarity Cloudy Urine pH 5.5 Urine Specific [place] 1.025 Urine Protein 30 mg/dL (NEG-TRACE) Urine Glucose (UA) Negative mg/dL (NEG) Urine Ketones (Stick) Trace mg/dL (NEG) Urine Blood Negative (NEG) Urine Nitrite Negative (NEG) Urine Bilirubin Small (NEG) Urine Urobilinogen Dipstick 1.0 mg/dL (0.2 mg/dL) Urine Leukocyte Esterase Small (NEG) Urine RBC 0 /HPF (0-2) Urine WBC 5-10 /HPF (0-4) Urine Squamous Epithelial Cells Occ /LPF Urine Transitional Epithelial Cells Occ /LPF Urine Bacteria Few /HPF (0-FEW) Urine Hyaline Casts Occasional /HPF Urine Granular Casts Occasional /HPF Urine Mucus Marked /LPF Influenza Type A Antigen Negative (NEGATIVE) Influenza Type B Antigen Negative (NEGATIVE) Nasal Screen MRSA (PCR) Negative (Negative) Test 04/02/17 15:37 04/02/17 18:40 04/03/17 07:00 04/03/17 08:40 O2 Saturation 85 % (92-99) 94 % (92-99) Arterial Blood pH 7.36 (7.35-7.45) 7.45 (7.35-7.45) Arterial Blood pCO2 at Patient Temp 79 mmHg (35-46) 55 mmHg (35-46) Arterial Blood pO2 at Patient Temp 54 mmHg (65-108) 71 mmHg (65-108) Arterial Blood HCO3 44 mmol/L (21-28) 38 mmol/L (21-28) Arterial Blood Base Excess 15 mmol/L (-3-3) 12 mmol/L (-3-3) FiO2 45 50 Troponin I Quantitative < 0.017 ng/mL (0.000-0.055) White Blood Count 16.0 x10^3/uL (4.0-11.0) Red Blood Count 3.34 x10^6/uL (4.30-5.70) Hemoglobin 9.6 g/dL (13.0-17.5) Hematocrit 30.6 % (39.0-53.0) Mean Corpuscular Volume 91 fL (79-100) Mean Corpuscular Hemoglobin 29 pg (25-35) Mean Corpuscular Hemoglobin Concent 31 g/dL (31-37) Red Cell Distribution Width 16.9 % (11.5-14.5) Platelet Count 184 x10^3/uL (140-400) Neutrophils (%) (Auto) 89 % (31-73) Lymphocytes (%) (Auto) 7 % (24-48) Monocytes (%) (Auto) 4 % (0-9) Eosinophils (%) (Auto) 0 % (0-3) Basophils (%) (Auto) 0 % (0-3) Neutrophils # (Auto) 14.2 x10^3uL (1.8-7.7) Lymphocytes # (Auto) 1.2 x10^3/uL (1.0-4.8) Monocytes # (Auto) 0.6 x10^3/uL (0.0-1.1) Eosinophils # (Auto) 0.0 x10^3/uL (0.0-0.7) Basophils # (Auto) 0.0 x10^3/uL (0.0-0.2) Reticulocyte Count (auto) 0.8 % (0.5-2.5) Sodium Level 139 mmol/L (136-145) Potassium Level 3.7 mmol/L (3.5-5.1) Chloride Level 99 mmol/L (98-107) Carbon Dioxide Level 39 mmol/L (21-32) Anion Gap 1 (6-14) Blood Urea Nitrogen 16 mg/dL (8-26) Creatinine 0.7 mg/dL (0.7-1.3) Estimated GFR (Cockcroft-Gault) 133.8 Glucose Level 130 mg/dL (70-99) Calcium Level 8.8 mg/dL (8.5-10.1) Magnesium Level 1.7 mg/dL (1.8-2.4) Iron Level 21 ug/dL (65-175) Total Iron Binding Capacity 196 ug/dL (250-450) Iron Saturation 11 % (15-34) Ferritin 1377 ng/mL (26-388) Medications Active Scripts Medications Dose Route/Sig Max Daily Dose Days Date Category Dose Instructions Albuterol Sulfate Neb Soln (Albuterol Sulfate) 2.5 Mg/3 Ml Vial.neb 1 Vial NEB Q4HRS 03/19/17 Reported Albuterol Sulfate Neb Soln (Albuterol Sulfate) 2.5 Mg/3 Ml Vial.neb 2.5 Mg NEB PRN Q2HR PRN 03/19/17 Reported Nexium Capsule (Esomeprazole Magnesium) 20 Mg Capsule.dr 20 Mg PO DAILYAC 03/19/17 Reported Clonazepam 0.5 Mg Tablet 0.5 Mg PO BID 30 03/01/17 Rx Prednisone 20 Mg Tablet 30 Mg PO DAILY 30 03/01/17 Rx one and half tab for 3 day then 1tab for 3 day then half tab daily till seen Dr. Edie Olguin Xt (Diltiazem Hcl) 300 Mg Cap.er.24h 300 Mg PO DAILY 02/22/17 Reported Fluticasone Propionate Nasal Harrison (Fluticasone Propionate) 16 Gm Harrison.susp 2 Harrison NS PRN DAILY PRN 12/09/16 Rx Milk Of Magnesia (Magnesium Hydroxide) 2,400 Mg/10 Ml Oral.susp 5,200 Mg PO PRN DAILY PRN 12/07/16 Reported Duoneb 0.5-3(2.5) Mg/3 Ml (Albuterol/Ipratropium) 3 Ml Ampul.neb 3 Ml NEB PRN Q2HR PRN 11/11/16 Reported Prilosec (Omeprazole Magnesium) 10 Mg Suspdr.pkt 20 Mg PO DAILY 11/11/16 Reported Miralax (Polyethylene Glycol 3350) 17 Gm Powd.pack 1 Packet PO DAILY PRN 11/11/16 Reported Symbicort 160-4.5 Mcg Inhaler (Budesonide/Formoterol Fumarate) 10.2 Gm Hfa.aer.ad 2 Puff IH BID 11/11/16 Reported Oxycodone Hcl 20 Mg Tablet 20 Mg PO PRN QID PRN 06/13/16 Reported Bisacodyl 5 Mg Tablet.dr 5 Mg PO DAILY06 06/13/16 Reported Impression . 1. Acute on chronic hypercapnic and hypoxic respiratory failure secondary to healthcare-associated pneumonia involving the left lung. 2. Leukocytosis secondary to new pneumonia. 3. Abnormal chest x-ray with new infiltrates in the left perihilar and left lower lobes consistent with pneumonia. 4. Mild dehydration. 5. 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 Plan . 1. off BIPAP during day, use Qhs 2. Broad-spectrum antibiotics to cover for healthcare-associated pneumonia. 3. Follow chest x-rays in few days 4. Follow up ABGs improved 5. Bronchodilators. 6. Deep venous thrombosis prophylaxis. 7. Hold off on systemic steroids. 8. Discussed with RN and RT. can go to floor JOHN BAIRES MD April 03, 2017 11:05
[2017-04-03 13:11] LABS: FOLATE 15.07 ng/ml (3.2-20.0)
[2017-04-03] MEDS: ENOXAPARIN 40 MG/0.4 ML SYRINGE. SQ SCH (16:13)
[2017-04-04 03:00] VITALS: BP 97/50
[2017-04-04 04:01] LABS: CALCIUM 8.5 mg/dL (8.5-10.1); CREATININE 0.5 mg/dL (0.7-1.3); GFR 197.2; POTASSIUM 3.7 mmol/L (3.5-5.1)
[2017-04-04 04:05] LABS: BASO % 0 % (0-3); EOS % 0 % (0-3); HEMATOCRIT 28.3 % (39.0-53.0); LYMPH # 0.7 x10^3/uL (1.0-4.8); LYMPH % 6 % (24-48); MEAN CORPUSCULAR HEMOGLOBIN 29 pg (25-35); MEAN CORPUSCULAR HGB CONC 32 g/dL (31-37); MEAN CORPUSCULAR VOLUME 91 fL (79-100); MONO % 5 % (0-9); NEUT % 89 % (31-73); PLATELET COUNT 158 x10^3/uL (140-400); RED BLOOD COUNT 3.11 x10^6/uL (4.30-5.70); RED CELL DISTRIBUTION WIDTH 17.2 % (11.5-14.5)
[2017-04-04] MEDS: VANCOMYCIN 1 GM in IV NORMAL SALINE 250ML 250 ML IV SCH ×3 (04:29→22:17)
[2017-04-04] MEDS: VANCOMYCIN PER PHARMACY MC PRN (05:43)
[2017-04-04] MEDS: PANTOPRAZOLE 40 MG TABLET.DR. PO SCH (06:19)
[2017-04-04] MEDS: PIPERACILLIN/TAZOBACTAM 4.5 GM in IV NORMAL SALINE 100ML 100 ML IV SCH ×3 (06:19→17:05)
[2017-04-04] MEDS: BISACODYL 5 MG TABLET.DR. PO SCH (06:19)
[2017-04-04 07:18] VITALS: BP 111/57
[2017-04-04] MEDS: IPRATRPIUM/ALBUTEROL 0.5/2.5MG 3 ML NEBU. NEB SCH ×4 (07:58→19:39)
[2017-04-04] MEDS: INSULIN ASPART 300 UNITS/3 ML INSULN.PEN SQ SCH ×3 (08:00→17:00)
[2017-04-04] MEDS: IV NORMAL SALINE 1000ML BAG 1,000 ML IV SCH ×2 (08:00→17:07)
[2017-04-04 10:50] VITALS: BP 110/55
--- NOTE | 2017-04-04 11:32 | PDOC ---
PULMONARY PROGRESS NOTES Subjective on BIPAP, helps his sob, has cough, back pain Vitals Vital Signs Date Time Temp Pulse Resp B/P (MAP) Pulse Ox O2 Delivery O2 Flow Rate FiO2 04/04/17 10:33 Nasal Cannula 3.0 04/04/17 08:42 67 111/57 04/04/17 08:01 93 04/04/17 07:18 96.6 18 96.6 ROS: No Nausea, No Abdominal Pain General: Alert, No acute distress, Mild Distress HEENT: Other (nc at perrl) Lungs: Other (decrease bs) Cardiovascular: S1, S2 Abdomen: Soft, Non-tender Neuro Exam: Alert Extremities: No Edema Skin: Warm Labs Laboratory Tests Test 04/02/17 11:34 04/02/17 11:48 04/02/17 14:45 04/02/17 15:37 Bedside Troponin I 0.02 ng/ml (<0.08) Urine Collection Type Unknown Urine Color [place] Urine Clarity Cloudy Urine pH 5.5 Urine Specific [place] 1.025 Urine Protein 30 mg/dL (NEG-TRACE) Urine Glucose (UA) Negative mg/dL (NEG) Urine Ketones (Stick) Trace mg/dL (NEG) Urine Blood Negative (NEG) Urine Nitrite Negative (NEG) Urine Bilirubin Small (NEG) Urine Urobilinogen Dipstick 1.0 mg/dL (0.2 mg/dL) Urine Leukocyte Esterase Small (NEG) Urine RBC 0 /HPF (0-2) Urine WBC 5-10 /HPF (0-4) Urine Squamous Epithelial Cells Occ /LPF Urine Transitional Epithelial Cells Occ /LPF Urine Bacteria Few /HPF (0-FEW) Urine Hyaline Casts Occasional /HPF Urine Granular Casts Occasional /HPF Urine Mucus Marked /LPF Influenza Type A Antigen Negative (NEGATIVE) Influenza Type B Antigen Negative (NEGATIVE) Nasal Screen MRSA (PCR) Negative (Negative) O2 Saturation 85 % (92-99) Arterial Blood pH 7.36 (7.35-7.45) Arterial Blood pCO2 at Patient Temp 79 mmHg (35-46) Arterial Blood pO2 at Patient Temp 54 mmHg (65-108) Arterial Blood HCO3 44 mmol/L (21-28) Arterial Blood Base Excess 15 mmol/L (-3-3) FiO2 45 Test 04/02/17 18:40 04/03/17 07:00 04/03/17 08:40 04/03/17 13:53 Troponin I Quantitative < 0.017 ng/mL (0.000-0.055) O2 Saturation 94 % (92-99) Arterial Blood pH 7.45 (7.35-7.45) Arterial Blood pCO2 at Patient Temp 55 mmHg (35-46) Arterial Blood pO2 at Patient Temp 71 mmHg (65-108) Arterial Blood HCO3 38 mmol/L (21-28) Arterial Blood Base Excess 12 mmol/L (-3-3) FiO2 50 White Blood Count 16.0 x10^3/uL (4.0-11.0) Red Blood Count 3.34 x10^6/uL (4.30-5.70) Hemoglobin 9.6 g/dL (13.0-17.5) Hematocrit 30.6 % (39.0-53.0) Mean Corpuscular Volume 91 fL (79-100) Mean Corpuscular Hemoglobin 29 pg (25-35) Mean Corpuscular Hemoglobin Concent 31 g/dL (31-37) Red Cell Distribution Width 16.9 % (11.5-14.5) Platelet Count 184 x10^3/uL (140-400) Neutrophils (%) (Auto) 89 % (31-73) Lymphocytes (%) (Auto) 7 % (24-48) Monocytes (%) (Auto) 4 % (0-9) Eosinophils (%) (Auto) 0 % (0-3) Basophils (%) (Auto) 0 % (0-3) Neutrophils # (Auto) 14.2 x10^3uL (1.8-7.7) Lymphocytes # (Auto) 1.2 x10^3/uL (1.0-4.8) Monocytes # (Auto) 0.6 x10^3/uL (0.0-1.1) Eosinophils # (Auto) 0.0 x10^3/uL (0.0-0.7) Basophils # (Auto) 0.0 x10^3/uL (0.0-0.2) Reticulocyte Count (auto) 0.8 % (0.5-2.5) Sodium Level 139 mmol/L (136-145) Potassium Level 3.7 mmol/L (3.5-5.1) Chloride Level 99 mmol/L (98-107) Carbon Dioxide Level 39 mmol/L (21-32) Anion Gap 1 (6-14) Blood Urea Nitrogen 16 mg/dL (8-26) Creatinine 0.7 mg/dL (0.7-1.3) Estimated GFR (Cockcroft-Gault) 133.8 Glucose Level 130 mg/dL (70-99) Hemoglobin A1c 6.0 % (4.8-5.6) Calcium Level 8.8 mg/dL (8.5-10.1) Magnesium Level 1.7 mg/dL (1.8-2.4) Iron Level 21 ug/dL (65-175) Total Iron Binding Capacity 196 ug/dL (250-450) Iron Saturation 11 % (15-34) Ferritin 1377 ng/mL (26-388) Vitamin B12 Level 502 pg/mL (247-911) Serum Folate 15.07 ng/ml (3.2-20.0) Glucose (Fingerstick) 128 mg/dL (70-99) Test 04/04/17 02:45 04/04/17 07:49 White Blood Count 12.0 x10^3/uL (4.0-11.0) Red Blood Count 3.11 x10^6/uL (4.30-5.70) Hemoglobin 9.0 g/dL (13.0-17.5) Hematocrit 28.3 % (39.0-53.0) Mean Corpuscular Volume 91 fL (79-100) Mean Corpuscular Hemoglobin 29 pg (25-35) Mean Corpuscular Hemoglobin Concent 32 g/dL (31-37) Red Cell Distribution Width 17.2 % (11.5-14.5) Platelet Count 158 x10^3/uL (140-400) Neutrophils (%) (Auto) 89 % (31-73) Lymphocytes (%) (Auto) 6 % (24-48) Monocytes (%) (Auto) 5 % (0-9) Eosinophils (%) (Auto) 0 % (0-3) Basophils (%) (Auto) 0 % (0-3) Neutrophils # (Auto) 10.7 x10^3uL (1.8-7.7) Lymphocytes # (Auto) 0.7 x10^3/uL (1.0-4.8) Monocytes # (Auto) 0.6 x10^3/uL (0.0-1.1) Eosinophils # (Auto) 0.0 x10^3/uL (0.0-0.7) Basophils # (Auto) 0.0 x10^3/uL (0.0-0.2) Sodium Level 143 mmol/L (136-145) Potassium Level 3.7 mmol/L (3.5-5.1) Chloride Level 104 mmol/L (98-107) Carbon Dioxide Level 39 mmol/L (21-32) Anion Gap 0 (6-14) Blood Urea Nitrogen 16 mg/dL (8-26) Creatinine 0.5 mg/dL (0.7-1.3) Estimated GFR (Cockcroft-Gault) 197.2 Glucose Level 111 mg/dL (70-99) Calcium Level 8.5 mg/dL (8.5-10.1) Vancomycin Level Trough 10.0 mcg/mL (10.0-20.0) Vancomycin Last Dose Date Vancomycin Last Dose Time Glucose (Fingerstick) 109 mg/dL (70-99) Laboratory Tests Test 04/03/17 13:53 04/04/17 02:45 04/04/17 07:49 Glucose (Fingerstick) 128 mg/dL (70-99) 109 mg/dL (70-99) White Blood Count 12.0 x10^3/uL (4.0-11.0) Red Blood Count 3.11 x10^6/uL (4.30-5.70) Hemoglobin 9.0 g/dL (13.0-17.5) Hematocrit 28.3 % (39.0-53.0) Mean Corpuscular Volume 91 fL (79-100) Mean Corpuscular Hemoglobin 29 pg (25-35) Mean Corpuscular Hemoglobin Concent 32 g/dL (31-37) Red Cell Distribution Width 17.2 % (11.5-14.5) Platelet Count 158 x10^3/uL (140-400) Neutrophils (%) (Auto) 89 % (31-73) Lymphocytes (%) (Auto) 6 % (24-48) Monocytes (%) (Auto) 5 % (0-9) Eosinophils (%) (Auto) 0 % (0-3) Basophils (%) (Auto) 0 % (0-3) Neutrophils # (Auto) 10.7 x10^3uL (1.8-7.7) Lymphocytes # (Auto) 0.7 x10^3/uL (1.0-4.8) Monocytes # (Auto) 0.6 x10^3/uL (0.0-1.1) Eosinophils # (Auto) 0.0 x10^3/uL (0.0-0.7) Basophils # (Auto) 0.0 x10^3/uL (0.0-0.2) Sodium Level 143 mmol/L (136-145) Potassium Level 3.7 mmol/L (3.5-5.1) Chloride Level 104 mmol/L (98-107) Carbon Dioxide Level 39 mmol/L (21-32) Anion Gap 0 (6-14) Blood Urea Nitrogen 16 mg/dL (8-26) Creatinine 0.5 mg/dL (0.7-1.3) Estimated GFR (Cockcroft-Gault) 197.2 Glucose Level 111 mg/dL (70-99) Calcium Level 8.5 mg/dL (8.5-10.1) Vancomycin Level Trough 10.0 mcg/mL (10.0-20.0) Vancomycin Last Dose Date Vancomycin Last Dose Time Medications Active Scripts Medications Dose Route/Sig Max Daily Dose Days Date Category Dose Instructions Albuterol Sulfate Neb Soln (Albuterol Sulfate) 2.5 Mg/3 Ml Vial.neb 1 Vial NEB Q4HRS 03/19/17 Reported Albuterol Sulfate Neb Soln (Albuterol Sulfate) 2.5 Mg/3 Ml Vial.neb 2.5 Mg NEB PRN Q2HR PRN 03/19/17 Reported Nexium Capsule (Esomeprazole Magnesium) 20 Mg Capsule.dr 20 Mg PO DAILYAC 03/19/17 Reported Clonazepam 0.5 Mg Tablet 0.5 Mg PO BID 30 03/01/17 Rx Prednisone 20 Mg Tablet 30 Mg PO DAILY 30 03/01/17 Rx one and half tab for 3 day then 1tab for 3 day then half tab daily till seen Dr. Edie Olguin Xt (Diltiazem Hcl) 300 Mg Cap.er.24h 300 Mg PO DAILY 02/22/17 Reported Fluticasone Propionate Nasal [place] (Fluticasone Propionate) 16 Gm [place].susp 2 [place] NS PRN DAILY PRN 12/09/16 Rx Milk Of Magnesia (Magnesium Hydroxide) 2,400 Mg/10 Ml Oral.susp 5,200 Mg PO PRN DAILY PRN 12/07/16 Reported Duoneb 0.5-3(2.5) Mg/3 Ml (Albuterol/Ipratropium) 3 Ml Ampul.neb 3 Ml NEB PRN Q2HR PRN 11/11/16 Reported Prilosec (Omeprazole Magnesium) 10 Mg Suspdr.pkt 20 Mg PO DAILY 11/11/16 Reported Miralax (Polyethylene Glycol 3350) 17 Gm Powd.pack 1 Packet PO DAILY PRN 11/11/16 Reported Symbicort 160-4.5 Mcg Inhaler (Budesonide/Formoterol Fumarate) 10.2 Gm Hfa.aer.ad 2 Puff IH BID 11/11/16 Reported Oxycodone Hcl 20 Mg Tablet 20 Mg PO PRN QID PRN 06/13/16 Reported Bisacodyl 5 Mg Tablet.dr 5 Mg PO DAILY06 06/13/16 Reported Impression . 1. Acute on chronic hypercapnic and hypoxic respiratory failure secondary to healthcare-associated pneumonia involving the left lung. 2. Leukocytosis secondary to new pneumonia. 3. Abnormal chest x-ray with new infiltrates in the left perihilar and left lower lobes consistent with pneumonia. 4. Mild dehydration. 5. 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 Plan . 1. BIPAP prn during day, continuously Qhs 2. Broad-spectrum antibiotics to cover for healthcare-associated pneumonia. 3. Follow chest x-rays in few days 4. Follow up ABGs improved 5. Bronchodilators. 6. Deep venous thrombosis prophylaxis. 7. add pulmicort, may need systemic steroids. 8. Discussed with RN and pt TAVON PLATT MD April 04, 2017 11:32
[2017-04-04] MEDS: BUDESONIDE 0.5 MG/2 ML NEBU. NEB SCH ×2 (12:00→19:39)
--- NOTE | 2017-04-04 12:30 | PDOC ---
PROGRESS NOTES Chief Complaint Chief Complaint Acute hypoxic, hypercapnic respir failure ASSESSMENT AND PLAN: 1. LLL PNA: HCAP; broad spectrum coverage with Zosyn, Vanco 2. COPD: nebs, suppl O2. steroids given in ER, but will hold as per Dr Vaughn' s rec. 3. Leukocytosis: reactive 2/2 infection (and steroids). monitor 4. Anemia: mild, chronic. prob multifactorial. anemia profile to r/o vitamin deficiencies 5. Dehydration: mild at POA. resolved 6. DM2: diet controlled, but unmasked with steroids. ISS 7. Prophylaxis: PPI, lovenox History of Present Illness History of Present Illness SOB, able to communicate better today that reported yesterday able to eat some cont pulm toilet and abx Vitals Vitals Vital Signs Date Time Temp Pulse Resp B/P (MAP) Pulse Ox O2 Delivery O2 Flow Rate FiO2 04/04/17 10:33 Nasal Cannula 3.0 04/04/17 08:42 67 111/57 04/04/17 08:01 93 04/04/17 07:18 96.6 18 96.6 Physical Exam General: mild distress, Other Heart: Regular rate Lungs: Other (decrease bs) Abdomen: Normal bowel sounds, No tenderness, Other (cachectic) Extremities: No edema Labs LABS Laboratory Tests Test 04/03/17 13:53 04/04/17 02:45 04/04/17 07:49 04/04/17 11:30 Glucose (Fingerstick) 128 mg/dL (70-99) 109 mg/dL (70-99) 168 mg/dL (70-99) White Blood Count 12.0 x10^3/uL (4.0-11.0) Red Blood Count 3.11 x10^6/uL (4.30-5.70) Hemoglobin 9.0 g/dL (13.0-17.5) Hematocrit 28.3 % (39.0-53.0) Mean Corpuscular Volume 91 fL (79-100) Mean Corpuscular Hemoglobin 29 pg (25-35) Mean Corpuscular Hemoglobin Concent 32 g/dL (31-37) Red Cell Distribution Width 17.2 % (11.5-14.5) Platelet Count 158 x10^3/uL (140-400) Neutrophils (%) (Auto) 89 % (31-73) Lymphocytes (%) (Auto) 6 % (24-48) Monocytes (%) (Auto) 5 % (0-9) Eosinophils (%) (Auto) 0 % (0-3) Basophils (%) (Auto) 0 % (0-3) Neutrophils # (Auto) 10.7 x10^3uL (1.8-7.7) Lymphocytes # (Auto) 0.7 x10^3/uL (1.0-4.8) Monocytes # (Auto) 0.6 x10^3/uL (0.0-1.1) Eosinophils # (Auto) 0.0 x10^3/uL (0.0-0.7) Basophils # (Auto) 0.0 x10^3/uL (0.0-0.2) Sodium Level 143 mmol/L (136-145) Potassium Level 3.7 mmol/L (3.5-5.1) Chloride Level 104 mmol/L (98-107) Carbon Dioxide Level 39 mmol/L (21-32) Anion Gap 0 (6-14) Blood Urea Nitrogen 16 mg/dL (8-26) Creatinine 0.5 mg/dL (0.7-1.3) Estimated GFR (Cockcroft-Gault) 197.2 Glucose Level 111 mg/dL (70-99) Calcium Level 8.5 mg/dL (8.5-10.1) Vancomycin Level Trough 10.0 mcg/mL (10.0-20.0) Vancomycin Last Dose Date Vancomycin Last Dose Time Review of Systems Review of Systems was able to eat some resp distress Assessment and Plan Assessmemt and Plan DNR noted Problems Medical Problems: (1) Acute and chronic respiratory failure ([id number]) Status: Acute (2) COPD with acute exacerbation Status: Acute (3) Hypoxia Status: Acute (4) Leukocytosis Status: Acute (5) Pneumonia Status: Acute Problems: Comment Review of Relevant I have reviewed the following items edwin (where applicable) has been applied. Labs Laboratory Tests Test 04/02/17 14:45 04/02/17 15:37 04/02/17 18:40 04/03/17 07:00 Nasal Screen MRSA (PCR) Negative (Negative) O2 Saturation 85 % (92-99) 94 % (92-99) Arterial Blood pH 7.36 (7.35-7.45) 7.45 (7.35-7.45) Arterial Blood pCO2 at Patient Temp 79 mmHg (35-46) 55 mmHg (35-46) Arterial Blood pO2 at Patient Temp 54 mmHg (65-108) 71 mmHg (65-108) Arterial Blood HCO3 44 mmol/L (21-28) 38 mmol/L (21-28) Arterial Blood Base Excess 15 mmol/L (-3-3) 12 mmol/L (-3-3) FiO2 45 50 Troponin I Quantitative < 0.017 ng/mL (0.000-0.055) Test 04/03/17 08:40 04/03/17 13:53 04/04/17 02:45 04/04/17 07:49 White Blood Count 16.0 x10^3/uL (4.0-11.0) 12.0 x10^3/uL (4.0-11.0) Red Blood Count 3.34 x10^6/uL (4.30-5.70) 3.11 x10^6/uL (4.30-5.70) Hemoglobin 9.6 g/dL (13.0-17.5) 9.0 g/dL (13.0-17.5) Hematocrit 30.6 % (39.0-53.0) 28.3 % (39.0-53.0) Mean Corpuscular Volume 91 fL (79-100) 91 fL (79-100) Mean Corpuscular Hemoglobin 29 pg (25-35) 29 pg (25-35) Mean Corpuscular Hemoglobin Concent 31 g/dL (31-37) 32 g/dL (31-37) Red Cell Distribution Width 16.9 % (11.5-14.5) 17.2 % (11.5-14.5) Platelet Count 184 x10^3/uL (140-400) 158 x10^3/uL (140-400) Neutrophils (%) (Auto) 89 % (31-73) 89 % (31-73) Lymphocytes (%) (Auto) 7 % (24-48) 6 % (24-48) Monocytes (%) (Auto) 4 % (0-9) 5 % (0-9) Eosinophils (%) (Auto) 0 % (0-3) 0 % (0-3) Basophils (%) (Auto) 0 % (0-3) 0 % (0-3) Neutrophils # (Auto) 14.2 x10^3uL (1.8-7.7) 10.7 x10^3uL (1.8-7.7) Lymphocytes # (Auto) 1.2 x10^3/uL (1.0-4.8) 0.7 x10^3/uL (1.0-4.8) Monocytes # (Auto) 0.6 x10^3/uL (0.0-1.1) 0.6 x10^3/uL (0.0-1.1) Eosinophils # (Auto) 0.0 x10^3/uL (0.0-0.7) 0.0 x10^3/uL (0.0-0.7) Basophils # (Auto) 0.0 x10^3/uL (0.0-0.2) 0.0 x10^3/uL (0.0-0.2) Reticulocyte Count (auto) 0.8 % (0.5-2.5) Sodium Level 139 mmol/L (136-145) 143 mmol/L (136-145) Potassium Level 3.7 mmol/L (3.5-5.1) 3.7 mmol/L (3.5-5.1) Chloride Level 99 mmol/L (98-107) 104 mmol/L (98-107) Carbon Dioxide Level 39 mmol/L (21-32) 39 mmol/L (21-32) Anion Gap 1 (6-14) 0 (6-14) Blood Urea Nitrogen 16 mg/dL (8-26) 16 mg/dL (8-26) Creatinine 0.7 mg/dL (0.7-1.3) 0.5 mg/dL (0.7-1.3) Estimated GFR (Cockcroft-Gault) 133.8 197.2 Glucose Level 130 mg/dL (70-99) 111 mg/dL (70-99) Hemoglobin A1c 6.0 % (4.8-5.6) Calcium Level 8.8 mg/dL (8.5-10.1) 8.5 mg/dL (8.5-10.1) Magnesium Level 1.7 mg/dL (1.8-2.4) Iron Level 21 ug/dL (65-175) Total Iron Binding Capacity 196 ug/dL (250-450) Iron Saturation 11 % (15-34) Ferritin 1377 ng/mL (26-388) Vitamin B12 Level 502 pg/mL (247-911) Serum Folate 15.07 ng/ml (3.2-20.0) Glucose (Fingerstick) 128 mg/dL (70-99) 109 mg/dL (70-99) Vancomycin Level Trough 10.0 mcg/mL (10.0-20.0) Vancomycin Last Dose Date Vancomycin Last Dose Time Test 04/04/17 11:30 Glucose (Fingerstick) 168 mg/dL (70-99) Laboratory Tests Test 04/03/17 13:53 04/04/17 02:45 04/04/17 07:49 04/04/17 11:30 Glucose (Fingerstick) 128 mg/dL (70-99) 109 mg/dL (70-99) 168 mg/dL (70-99) White Blood Count 12.0 x10^3/uL (4.0-11.0) Red Blood Count 3.11 x10^6/uL (4.30-5.70) Hemoglobin 9.0 g/dL (13.0-17.5) Hematocrit 28.3 % (39.0-53.0) Mean Corpuscular Volume 91 fL (79-100) Mean Corpuscular Hemoglobin 29 pg (25-35) Mean Corpuscular Hemoglobin Concent 32 g/dL (31-37) Red Cell Distribution Width 17.2 % (11.5-14.5) Platelet Count 158 x10^3/uL (140-400) Neutrophils (%) (Auto) 89 % (31-73) Lymphocytes (%) (Auto) 6 % (24-48) Monocytes (%) (Auto) 5 % (0-9) Eosinophils (%) (Auto) 0 % (0-3) Basophils (%) (Auto) 0 % (0-3) Neutrophils # (Auto) 10.7 x10^3uL (1.8-7.7) Lymphocytes # (Auto) 0.7 x10^3/uL (1.0-4.8) Monocytes # (Auto) 0.6 x10^3/uL (0.0-1.1) Eosinophils # (Auto) 0.0 x10^3/uL (0.0-0.7) Basophils # (Auto) 0.0 x10^3/uL (0.0-0.2) Sodium Level 143 mmol/L (136-145) Potassium Level 3.7 mmol/L (3.5-5.1) Chloride Level 104 mmol/L (98-107) Carbon Dioxide Level 39 mmol/L (21-32) Anion Gap 0 (6-14) Blood Urea Nitrogen 16 mg/dL (8-26) Creatinine 0.5 mg/dL (0.7-1.3) Estimated GFR (Cockcroft-Gault) 197.2 Glucose Level 111 mg/dL (70-99) Calcium Level 8.5 mg/dL (8.5-10.1) Vancomycin Level Trough 10.0 mcg/mL (10.0-20.0) Vancomycin Last Dose Date Vancomycin Last Dose Time Microbiology 04/02/17 Blood Culture - Preliminary, Resulted NO GROWTH AFTER 2 DAYS 04/03/17 Gram Stain - Final, Complete 04/02/17 Urine Culture - Preliminary, Resulted 04/02/17 Urine Culture Result 1 (STEPHANIE) - Preliminary, Resulted Medications Current Medications Sodium Chloride (Normal Saline Flush) 10 ml 1X ONCE IV Last administered on 11:15; Start 04/02/17 at 11:15; Stop 04/02/17 at 11:22; Status DC Sodium Chloride 1,000 ml @ 1,000 mls/hr Q1H IV Last administered on 04/02/17 11:36; Start 04/02/17 at 11:12; Stop 04/02/17 at 12:11; Status DC Methylprednisolone Sodium Succinate (Solu-Medrol 125mg Vial) 125 mg 1X ONCE IV Last administered on 04/02/17 11:36; Start 04/02/17 at 11:15; Stop 04/02/17 at 11:22; Status DC Albuterol Sulfate (Ventolin Neb Soln) 15 mg 1X ONCE CONT NEB Last administered on 04/02/17 12:20; Start 04/02/17 at 11:15; Stop 04/02/17 at 11:22 ; Status DC Ipratropium Soper (Atrovent) 0.5 mg 1X ONCE NEB Last administered on 12:15; Start 04/02/17 at 11:15; Stop 04/02/17 at 11:22; Status DC Ceftriaxone Sodium 50 ml @ 100 mls/hr 1X ONCE IV Last administered on 13:09; Start 04/02/17 at 13:00; Stop 04/02/17 at 13:29; Status DC Azithromycin 250 ml @ 250 mls/hr 1X ONCE IV Last administered on 04/02/17 13 :38; Start 04/02/17 at 13:00; Stop 04/02/17 at 13:59; Status DC Ondansetron HCl (Zofran) 4 mg PRN Q8HRS PRN IV NAUSEA/VOMITING; Start 04/02/17 at 12:45; Stop 04/03/17 at 12:44; Status DC Acetaminophen (Tylenol) 650 mg PRN Q4HRS PRN PO FEVER; Start 04/02/17 at 12:45 ; Stop 04/03/17 at 12:44; Status DC Vancomycin HCl (Vanco Per Pharmacy) 1 each PRN DAILY PRN MC SEE COMMENTS Last administered on 04/04/17 05:43; Start 04/02/17 at 15:30 Piperacillin Sod/ Tazobactam Sod (Zosyn Per Pharmacy) 1 each PRN DAILY PRN MC SEE COMMENTS; Start 04/02/17 at 15:30 Albuterol/ Ipratropium (Duoneb) 3 ml RTQID NEB Last administered on 04/04/17 10:32; Start 04/02/17 at 16:00 Enoxaparin Sodium (Lovenox 30mg Syringe) 30 mg Q24H SQ Last administered on 16:10; Start 04/02/17 at 16:00; Stop 04/03/17 at 08:55; Status DC Vancomycin HCl 1.25 gm/Sodium Chloride 250 ml @ 166.667 mls/hr 1X ONCE IV Last administered on 04/02/17 16:11; Start 04/02/17 at 16:00; Stop 04/02/17 at 17:29; Status DC Piperacillin Sod/ Tazobactam Sod 4.5 gm/Sodium Chloride 100 ml @ 200 mls/hr Q6HRS IV Last administered on 04/04/17 12:22; Start 04/02/17 at 16:00 Sodium Chloride 1,000 ml @ 75 mls/hr [id number] IV Last administered on 23:54; Start 04/02/17 at 16:00 Vancomycin HCl 1 gm/Sodium Chloride 250 ml @ 250 mls/hr Q12H IV Last administered on 04/04/17 04:29; Start 04/03/17 at 04:00; Stop 04/04/17 at 07:00 ; Status DC Vancomycin HCl 1 each 1X ONCE MC Last administered on 04/04/17 03:30; Start 04/04/17 at 03:30; Stop 04/04/17 at 03:31; Status DC Levofloxacin/ Dextrose (Levaquin Per Pharmacy) 1 each PRN DAILY PRN MC SEE COMMENTS; Start 04/02/17 at 20:30 Methylprednisolone Sodium Succinate (Solu-Medrol 40mg Vial) 40 mg Q8HRS IV Last administered on 04/03/17 06:00; Start 04/02/17 at 22:00; Stop 04/03/17 at 08:39; Status DC Levofloxacin/ Dextrose 150 ml @ 100 mls/hr Q24H IV Last administered on 21:03; Start 04/02/17 at 21:00 Albuterol Sulfate (Ventolin Neb Soln) 2.5 mg PRN Q2HR PRN NEB SHORTNESS OF BREATH; Start 04/03/17 at 08:30 Bisacodyl (Dulcolax Tab) 5 mg DAILY06 PO Last administered on 04/04/17 06:19; Start 04/03/17 at 09:00 Clonazepam (KlonoPIN) 0.5 mg PRN BID PRN PO anxiety; Start 04/03/17 at 08:30 Diltiazem HCl (Cardizem Cd) 300 mg DAILY PO Last administered on 04/04/17 08: 42; Start 04/03/17 at 09:00 Fluticasone Propionate (Flonase) 2 spray PRN DAILY PRN NS ALLERGIES; Start 10/10 at 08:30 Albuterol/ Ipratropium (Duoneb) 3 ml PRN Q2HR PRN NEB SHORTNESS OF BREATH; Start 04/03/17 at 08:30; Status UNV Polyethylene Glycol (miraLAX PACKET) 17 gm PRN DAILY PRN PO CONSTIPATION; Start 04/03/17 at 08:30 Pantoprazole Sodium (Protonix) 40 mg DAILYAC PO Last administered on 04/04/17 06:19; Start 04/03/17 at 09:00 Magnesium Hydroxide (Milk Of Magnesia) 2,400 mg PRN DAILY PRN PO CONSTIPATION; Start 04/03/17 at 08:45 Oxycodone HCl (Roxicodone) 20 mg PRN QID PRN PO PAIN; Start 04/03/17 at 08:45 Insulin Aspart (NovoLOG) 0-5 UNITS TIDWMEALS SQ ; Start 04/03/17 at 09:00 Dextrose (Dextrose 50%-Water Syringe) 12.5 gm PRN Q15MIN PRN IV SEE COMMENTS; Start 04/03/17 at 08:45 Enoxaparin Sodium (Lovenox 40mg Syringe) 40 mg Q24H SQ Last administered on 16:13; Start 04/03/17 at 16:00 Vancomycin HCl 1 gm/Sodium Chloride 250 ml @ 250 mls/hr Q8H IV ; Start at 13:00 Vancomycin HCl 1 each 1X ONCE MC ; Start 04/05/17 at 12:30; Stop 04/05/17 at 12 :31 Budesonide (Pulmicort) 0.5 mg RTBID NEB ; Start 04/04/17 at 12:00 Active Scripts Active Clonazepam 0.5 Mg Tablet 0.5 Mg PO BID 30 Days Prednisone 20 Mg Tablet 30 Mg PO DAILY 30 Days one and half tab for 3 day then 1tab for 3 day then half tab daily till seen Dr. Irizarry Fluticasone Propionate Nasal [place] (Fluticasone Propionate) 16 Gm [place].susp 2 [place] NS PRN DAILY PRN Reported Albuterol Sulfate Neb Soln (Albuterol Sulfate) 2.5 Mg/3 Ml Vial.neb 1 Vial NEB Q4HRS Albuterol Sulfate Neb Soln (Albuterol Sulfate) 2.5 Mg/3 Ml Vial.neb 2.5 Mg NEB PRN Q2HR PRN Nexium Capsule (Esomeprazole Magnesium) 20 Mg Capsule.dr 20 Mg PO DAILYAC Cartia Xt (Diltiazem Hcl) 300 Mg Cap.er.24h 300 Mg PO DAILY Milk Of Magnesia (Magnesium Hydroxide) 2,400 Mg/10 Ml Oral.susp 5,200 Mg PO PRN DAILY PRN Duoneb 0.5-3(2.5) Mg/3 Ml (Albuterol/Ipratropium) 3 Ml Ampul.neb 3 Ml NEB PRN Q2HR PRN Prilosec (Omeprazole Magnesium) 10 Mg Suspdr.pkt 20 Mg PO DAILY Miralax (Polyethylene Glycol 3350) 17 Gm Powd.pack 1 Packet PO DAILY PRN Symbicort 160-4.5 Mcg Inhaler (Budesonide/Formoterol Fumarate) 10.2 Gm Hfa.aer.ad 2 Puff IH BID Oxycodone Hcl 20 Mg Tablet 20 Mg PO PRN QID PRN Bisacodyl 5 Mg Tablet.dr 5 Mg PO DAILY06 Vitals/I & O Vital Sign - Last 24 Hours 04/03/17 04/03/17 04/03/17 04/03/17 12:38 15:00 16:42 19:00 Temp 97.7 98.1 97.7 98.1 Pulse 88 82 Resp 22 22 B/P (MAP) 138/74 (95) 99/57 (71) Pulse Ox 97 94 97 93 O2 Delivery BiPAP/CPAP BiPAP/CPAP BiPAP/CPAP BiPAP/CPAP 04/03/17 04/03/17 04/03/17 04/03/17 20:00 20:10 22:04 23:00 Temp 98.0 98.0 Pulse 82 Resp 22 B/P (MAP) 110/50 (70) Pulse Ox 93 96 O2 Delivery Nasal Cannula BiPAP/CPAP BiPAP/CPAP BiPAP/CPAP O2 Flow Rate 3.0 04/03/17 04/04/17 04/04/17 04/04/17 23:32 01:33 03:00 07:18 Temp 98.1 96.6 98.1 96.6 Pulse 68 67 Resp 22 18 B/P (MAP) 97/50 (66) 111/57 (75) Pulse Ox 90 91 O2 Delivery BiPAP/CPAP BiPAP/CPAP BiPAP/CPAP Nasal Cannula O2 Flow Rate 4.0 04/04/17 04/04/17 04/04/17 04/04/17 08:00 08:01 08:06 08:42 Pulse 67 B/P (MAP) 111/57 Pulse Ox 93 O2 Delivery Nasal Cannula Nasal Cannula BiPAP/CPAP O2 Flow Rate 3.0 3.0 04/04/17 10:33 O2 Delivery Nasal Cannula O2 Flow Rate 3.0 Intake and Output 04/03/17 04/03/17 04/04/17 15:00 23:00 07:00 Intake Total 100 ml 1630 ml 480 ml Output Total 525 ml 650 ml Balance 100 ml 1105 ml -170 ml Nutrition Consultation Dietary Evaluation: Recommendations by RD: Increase Calorie Intake, Protein supplementation Comments: Add chocolate Ensure TID (provides 350 calories, 20 grams protein per serving) Encourage good PO intake Expected Outcomes/Goals: meet 75% estimated nutrition needs Malnutrition Findings: Body Fat Depletion (Non Severe: Mild Depletion Reduced Forms Analyst Strength: N/A Reduced Forms Analyst Strength (Non-Sev: N/A Malnutrition related to morbid: No Weight Status: Underweight TRISHA CARNEY MD April 04, 2017 12:30
[2017-04-04 14:45] VITALS: BP 99/48
[2017-04-04] MEDS: ENOXAPARIN 40 MG/0.4 ML SYRINGE. SQ SCH (17:09)
[2017-04-04 19:00] VITALS: BP 103/59
[2017-04-04 23:00] VITALS: BP 143/72
[2017-04-05] VITALS (11 sets, daily range): BP systolic 96–144; BP diastolic 53–85
[2017-04-05] MEDS: PIPERACILLIN/TAZOBACTAM 4.5 GM in IV NORMAL SALINE 100ML 100 ML IV SCH ×5 (02:38→23:37)
[2017-04-05 05:01] LABS: BASO % 0 % (0-3); EOS % 0 % (0-3); HEMATOCRIT 33.8 % (39.0-53.0); HEMOGLOBIN 10.9 g/dL (13.0-17.5); LYMPH % 10 % (24-48); MEAN CORPUSCULAR HEMOGLOBIN 29 pg (25-35); MEAN CORPUSCULAR HGB CONC 32 g/dL (31-37); MEAN CORPUSCULAR VOLUME 91 fL (79-100); MONO % 6 % (0-9); NEUT % 84 % (31-73); PLATELET COUNT 201 x10^3/uL (140-400); RED BLOOD COUNT 3.73 x10^6/uL (4.30-5.70); RED CELL DISTRIBUTION WIDTH 17.5 % (11.5-14.5); WHITE BLOOD COUNT 9.6 x10^3/uL (4.0-11.0)
[2017-04-05 05:15] LABS: CALCIUM 9.2 mg/dL (8.5-10.1); CREATININE 0.4 mg/dL (0.7-1.3); GFR 255.1; POTASSIUM 4.3 mmol/L (3.5-5.1)
[2017-04-05] MEDS: clonazePAM 0.5 MG TABLET PO PRN (05:19)
[2017-04-05] MEDS: VANCOMYCIN 1 GM in IV NORMAL SALINE 250ML 250 ML IV SCH ×3 (05:23→23:32)
[2017-04-05 05:30] LABS: ALBUMIN 2.2 g/dL (3.4-5.0); DIRECT BILIRUBIN 0.2 mg/dL (0.0-0.2); TOTAL BILIRUBIN 0.3 mg/dL (0.2-1.0); TOTAL PROTEIN 5.5 g/dL (6.4-8.2)
[2017-04-05] MEDS: BISACODYL 5 MG TABLET.DR. PO SCH (06:00)
--- NOTE | 2017-04-05 06:30 | EKG ---
[facility] [address] [place] [id number] Test Date: 2017-04-05 Test Time: 05:22:24 Pat Name: YAYA BARILLAS Department: Room: 506 Gender: M Online Content Coordinator: AMBROCIO : 1945 Requested By: MY WEINBERG Order Number: [id number] Reading MD: Inder Lind Measurements Intervals [place] Rate: 121 P: PA: QRS: 90 QRSD: 92 T: 83 QT: 296 QTc: 423 Interpretive Statements afib with rvr Electronically Signed On 04-05-2017 13:49:08 CDT by Inder Lind
[2017-04-05] MEDS: IPRATRPIUM/ALBUTEROL 0.5/2.5MG 3 ML NEBU. NEB SCH ×5 (07:03→22:00)
[2017-04-05] MEDS: BUDESONIDE 0.5 MG/2 ML NEBU. NEB SCH ×2 (07:03→19:10)
[2017-04-05] MEDS: INSULIN ASPART 300 UNITS/3 ML INSULN.PEN SQ SCH ×3 (08:00→16:55)
[2017-04-05] MEDS: PANTOPRAZOLE 40 MG TABLET.DR. PO SCH (08:35)
--- NOTE | 2017-04-05 09:42 | PDOC ---
PULMONARY PROGRESS NOTES Subjective on BIPAP, helps his sob, has runny nose, cough, back pain Vitals Vital Signs Date Time Temp Pulse Resp B/P (MAP) Pulse Ox O2 Delivery O2 Flow Rate FiO2 04/05/17 08:36 92 120/67 04/05/17 07:20 97.7 22 85 BiPAP/CPAP 4.0 97.7 ROS: No Nausea, No Abdominal Pain General: Alert, No acute distress, Mild Distress HEENT: Other (nc at perrl) Lungs: Wheezing, Other (decrease bs) Cardiovascular: S1, S2 Abdomen: Soft, Non-tender Neuro Exam: Alert Extremities: No Edema Skin: Warm Labs Laboratory Tests Test 04/03/17 13:53 04/04/17 02:45 04/04/17 07:49 04/04/17 11:30 Glucose (Fingerstick) 128 mg/dL (70-99) 109 mg/dL (70-99) 168 mg/dL (70-99) White Blood Count 12.0 x10^3/uL (4.0-11.0) Red Blood Count 3.11 x10^6/uL (4.30-5.70) Hemoglobin 9.0 g/dL (13.0-17.5) Hematocrit 28.3 % (39.0-53.0) Mean Corpuscular Volume 91 fL (79-100) Mean Corpuscular Hemoglobin 29 pg (25-35) Mean Corpuscular Hemoglobin Concent 32 g/dL (31-37) Red Cell Distribution Width 17.2 % (11.5-14.5) Platelet Count 158 x10^3/uL (140-400) Neutrophils (%) (Auto) 89 % (31-73) Lymphocytes (%) (Auto) 6 % (24-48) Monocytes (%) (Auto) 5 % (0-9) Eosinophils (%) (Auto) 0 % (0-3) Basophils (%) (Auto) 0 % (0-3) Neutrophils # (Auto) 10.7 x10^3uL (1.8-7.7) Lymphocytes # (Auto) 0.7 x10^3/uL (1.0-4.8) Monocytes # (Auto) 0.6 x10^3/uL (0.0-1.1) Eosinophils # (Auto) 0.0 x10^3/uL (0.0-0.7) Basophils # (Auto) 0.0 x10^3/uL (0.0-0.2) Sodium Level 143 mmol/L (136-145) Potassium Level 3.7 mmol/L (3.5-5.1) Chloride Level 104 mmol/L (98-107) Carbon Dioxide Level 39 mmol/L (21-32) Anion Gap 0 (6-14) Blood Urea Nitrogen 16 mg/dL (8-26) Creatinine 0.5 mg/dL (0.7-1.3) Estimated GFR (Cockcroft-Gault) 197.2 Glucose Level 111 mg/dL (70-99) Calcium Level 8.5 mg/dL (8.5-10.1) Vancomycin Level Trough 10.0 mcg/mL (10.0-20.0) Vancomycin Last Dose Date Vancomycin Last Dose Time Test 04/04/17 16:55 04/04/17 20:50 04/05/17 04:15 04/05/17 08:00 Glucose (Fingerstick) 98 mg/dL (70-99) 115 mg/dL (70-99) 122 mg/dL (70-99) White Blood Count 9.6 x10^3/uL (4.0-11.0) Red Blood Count 3.73 x10^6/uL (4.30-5.70) Hemoglobin 10.9 g/dL (13.0-17.5) Hematocrit 33.8 % (39.0-53.0) Mean Corpuscular Volume 91 fL (79-100) Mean Corpuscular Hemoglobin 29 pg (25-35) Mean Corpuscular Hemoglobin Concent 32 g/dL (31-37) Red Cell Distribution Width 17.5 % (11.5-14.5) Platelet Count 201 x10^3/uL (140-400) Neutrophils (%) (Auto) 84 % (31-73) Lymphocytes (%) (Auto) 10 % (24-48) Monocytes (%) (Auto) 6 % (0-9) Eosinophils (%) (Auto) 0 % (0-3) Basophils (%) (Auto) 0 % (0-3) Neutrophils # (Auto) 8.1 x10^3uL (1.8-7.7) Lymphocytes # (Auto) 1.0 x10^3/uL (1.0-4.8) Monocytes # (Auto) 0.5 x10^3/uL (0.0-1.1) Eosinophils # (Auto) 0.0 x10^3/uL (0.0-0.7) Basophils # (Auto) 0.0 x10^3/uL (0.0-0.2) Sodium Level 144 mmol/L (136-145) Potassium Level 4.3 mmol/L (3.5-5.1) Chloride Level 103 mmol/L (98-107) Carbon Dioxide Level 41 mmol/L (21-32) Anion Gap 0 (6-14) Blood Urea Nitrogen 9 mg/dL (8-26) Creatinine 0.4 mg/dL (0.7-1.3) Estimated GFR (Cockcroft-Gault) 255.1 Glucose Level 68 mg/dL (70-99) Calcium Level 9.2 mg/dL (8.5-10.1) Total Bilirubin 0.3 mg/dL (0.2-1.0) Direct Bilirubin 0.2 mg/dL (0.0-0.2) Aspartate Amino Transf (AST/SGOT) 14 U/L (15-37) Alanine Aminotransferase (ALT/SGPT) 21 U/L (16-63) Alkaline Phosphatase 14 U/L (46-116) Total Protein 5.5 g/dL (6.4-8.2) Albumin 2.2 g/dL (3.4-5.0) Laboratory Tests Test 04/04/17 11:30 04/04/17 16:55 04/04/17 20:50 04/05/17 04:15 Glucose (Fingerstick) 168 mg/dL (70-99) 98 mg/dL (70-99) 115 mg/dL (70-99) White Blood Count 9.6 x10^3/uL (4.0-11.0) Red Blood Count 3.73 x10^6/uL (4.30-5.70) Hemoglobin 10.9 g/dL (13.0-17.5) Hematocrit 33.8 % (39.0-53.0) Mean Corpuscular Volume 91 fL (79-100) Mean Corpuscular Hemoglobin 29 pg (25-35) Mean Corpuscular Hemoglobin Concent 32 g/dL (31-37) Red Cell Distribution Width 17.5 % (11.5-14.5) Platelet Count 201 x10^3/uL (140-400) Neutrophils (%) (Auto) 84 % (31-73) Lymphocytes (%) (Auto) 10 % (24-48) Monocytes (%) (Auto) 6 % (0-9) Eosinophils (%) (Auto) 0 % (0-3) Basophils (%) (Auto) 0 % (0-3) Neutrophils # (Auto) 8.1 x10^3uL (1.8-7.7) Lymphocytes # (Auto) 1.0 x10^3/uL (1.0-4.8) Monocytes # (Auto) 0.5 x10^3/uL (0.0-1.1) Eosinophils # (Auto) 0.0 x10^3/uL (0.0-0.7) Basophils # (Auto) 0.0 x10^3/uL (0.0-0.2) Sodium Level 144 mmol/L (136-145) Potassium Level 4.3 mmol/L (3.5-5.1) Chloride Level 103 mmol/L (98-107) Carbon Dioxide Level 41 mmol/L (21-32) Anion Gap 0 (6-14) Blood Urea Nitrogen 9 mg/dL (8-26) Creatinine 0.4 mg/dL (0.7-1.3) Estimated GFR (Cockcroft-Gault) 255.1 Glucose Level 68 mg/dL (70-99) Calcium Level 9.2 mg/dL (8.5-10.1) Total Bilirubin 0.3 mg/dL (0.2-1.0) Direct Bilirubin 0.2 mg/dL (0.0-0.2) Aspartate Amino Transf (AST/SGOT) 14 U/L (15-37) Alanine Aminotransferase (ALT/SGPT) 21 U/L (16-63) Alkaline Phosphatase 14 U/L (46-116) Total Protein 5.5 g/dL (6.4-8.2) Albumin 2.2 g/dL (3.4-5.0) Test 04/05/17 08:00 Glucose (Fingerstick) 122 mg/dL (70-99) Medications Active Scripts Medications Dose Route/Sig Max Daily Dose Days Date Category Dose Instructions Albuterol Sulfate Neb Soln (Albuterol Sulfate) 2.5 Mg/3 Ml Vial.neb 1 Vial NEB Q4HRS 03/19/17 Reported Albuterol Sulfate Neb Soln (Albuterol Sulfate) 2.5 Mg/3 Ml Vial.neb 2.5 Mg NEB PRN Q2HR PRN 03/19/17 Reported Nexium Capsule (Esomeprazole Magnesium) 20 Mg Capsule.dr 20 Mg PO DAILYAC 03/19/17 Reported Clonazepam 0.5 Mg Tablet 0.5 Mg PO BID 30 03/01/17 Rx Prednisone 20 Mg Tablet 30 Mg PO DAILY 30 03/01/17 Rx one and half tab for 3 day then 1tab for 3 day then half tab daily till seen Dr. Edie Olguin Xt (Diltiazem Hcl) 300 Mg Cap.er.24h 300 Mg PO DAILY 02/22/17 Reported Fluticasone Propionate Nasal [place] (Fluticasone Propionate) 16 Gm Molena.susp 2 Molena NS PRN DAILY PRN 12/09/16 Rx Milk Of Magnesia (Magnesium Hydroxide) 2,400 Mg/10 Ml Oral.susp 5,200 Mg PO PRN DAILY PRN 12/07/16 Reported Duoneb 0.5-3(2.5) Mg/3 Ml (Albuterol/Ipratropium) 3 Ml Ampul.neb 3 Ml NEB PRN Q2HR PRN 11/11/16 Reported Prilosec (Omeprazole Magnesium) 10 Mg Suspdr.pkt 20 Mg PO DAILY 11/11/16 Reported Miralax (Polyethylene Glycol 3350) 17 Gm Powd.pack 1 Packet PO DAILY PRN 11/11/16 Reported Symbicort 160-4.5 Mcg Inhaler (Budesonide/Formoterol Fumarate) 10.2 Gm Hfa.aer.ad 2 Puff IH BID 11/11/16 Reported Oxycodone Hcl 20 Mg Tablet 20 Mg PO PRN QID PRN 06/13/16 Reported Bisacodyl 5 Mg Tablet.dr 5 Mg PO DAILY06 06/13/16 Reported Impression . 1. Acute on chronic hypercapnic and hypoxic respiratory failure secondary to healthcare-associated pneumonia involving the left lung. 2. Leukocytosis secondary to new pneumonia. 3. Abnormal chest x-ray with new infiltrates in the left perihilar and left lower lobes consistent with pneumonia. 4. Mild dehydration. 5. 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 Plan . 1. BIPAP prn during day, continuously Qhs, using bipap most of the day 2. Broad-spectrum antibiotics to cover for healthcare-associated pneumonia. 3. Follow chest x-rays in few days 4. Follow up ABGs improved 5. Bronchodilators. 6. Deep venous thrombosis prophylaxis. 7. pulmicort, add systemic steroids. 8. Discussed with RN and pt TAVON PLATT MD April 05, 2017 09:42
[2017-04-05] MEDS: IV NORMAL SALINE 1000ML BAG 1,000 ML IV SCH ×2 (11:17→21:19)
[2017-04-05] MEDS: methylPREDNISolone SOD SUCC PF 40 MG/ML VIAL. IV SCH ×2 (11:19→21:19)
--- NOTE | 2017-04-05 13:59 | PDOC2 ---
CARDIOLOGY CONSULT NOTE CHEIF COMPLAINT: Dyspnea Problems: HPI: 71 y.o male admitted for recurrent COPD exacerbation. No previous history of afib per patient. This a.m. noted to be tachycardic and EKG revealed afib with RVR. Pt. currently on bipap, has severe lung disease. Denies chest pain and palpitations. No syncope. Multiple recent admissions with respiratory failure. PMHX: COPD Resp failure HTN SOCHX: No alcohol, tob or illicit drug use at the moment FAMHX: NC CURRENT MEDS: Current Medications Medications (Trade) Dose Ordered Sig/Pierre Start Time Stop Time Status Last Admin Dose Admin Acetaminophen (Tylenol) 650 mg PRN Q4HRS PRN 04/02/17 12:45 04/03/17 12:44 DC Albuterol Sulfate (Ventolin Neb Soln) 2.5 mg PRN Q2HR PRN 04/03/17 08:30 Albuterol/ Ipratropium (Duoneb) 3 ml Q4HRS W/A 04/04/17 14:00 04/05/17 11:10 3 ML Azithromycin 250 ml @ 250 mls/hr 1X ONCE 04/02/17 13:00 04/02/17 13:59 DC 04/02/17 13:38 250 MLS/HR Bisacodyl (Dulcolax Tab) 5 mg DAILY06 04/03/17 09:00 04/04/17 06:19 5 MG Budesonide (Pulmicort) 0.5 mg RTBID 04/04/17 12:00 04/05/17 07:03 0.5 MG Ceftriaxone Sodium 50 ml @ 100 mls/hr 1X ONCE 04/02/17 13:00 04/02/17 13:29 DC 04/02/17 13:09 100 MLS/HR Clonazepam (KlonoPIN) 0.5 mg PRN BID PRN 04/03/17 08:30 04/05/17 05:19 0.5 MG Dextrose (Dextrose 50%-Water Syringe) 12.5 gm PRN Q15MIN PRN 04/03/17 08:45 Diltiazem HCl (Cardizem Cd) 300 mg DAILY 04/03/17 09:00 04/05/17 08:36 300 MG Enoxaparin Sodium (Lovenox 30mg Syringe) 30 mg Q24H 04/02/17 16:00 04/03/17 08:55 DC 04/02/17 16:10 30 MG Enoxaparin Sodium (Lovenox 40mg Syringe) 40 mg Q24H 04/03/17 16:00 04/04/17 17:09 40 MG Fluticasone Propionate (Flonase) 2 spray PRN DAILY PRN 04/03/17 08:30 Insulin Aspart (NovoLOG) 0-5 UNITS TIDWMEALS 04/03/17 09:00 Ipratropium [place] (Atrovent) 0.5 mg 1X ONCE 04/02/17 11:15 04/02/17 11:22 DC 04/02/17 12:15 0.5 MG Levofloxacin/ Dextrose 150 ml @ 100 mls/hr Q24H 04/02/17 21:00 04/05/17 00:07 100 MLS/HR Levofloxacin/ Dextrose (Levaquin Per Pharmacy) 1 each PRN DAILY PRN 04/02/17 20:30 04/05/17 11:23 DC Magnesium Hydroxide (Milk Of Magnesia) 2,400 mg PRN DAILY PRN 04/03/17 08:45 Methylprednisolone Sodium Succinate (SOLU-Medrol 40MG VIAL) 40 mg Q12HR 04/05/17 10:00 04/05/17 11:19 40 MG Methylprednisolone Sodium Succinate (Solu-Medrol 40mg Vial) 40 mg Q8HRS 04/02/17 22:00 04/03/17 08:39 DC 04/03/17 06:00 40 MG Methylprednisolone Sodium Succinate (Solu-Medrol 125mg Vial) 125 mg 1X ONCE 04/02/17 11:15 04/02/17 11:22 DC 04/02/17 11:36 125 MG Ondansetron HCl (Zofran) 4 mg PRN Q8HRS PRN 04/02/17 12:45 04/03/17 12:44 DC Oxycodone HCl (Roxicodone) 20 mg PRN QID PRN 04/03/17 08:45 Pantoprazole Sodium (Protonix) 40 mg DAILYAC 04/03/17 09:00 04/05/17 08:35 40 MG Piperacillin Sod/ Tazobactam Sod (Zosyn Per Pharmacy) 1 each PRN DAILY PRN 04/02/17 15:30 Piperacillin Sod/ Tazobactam Sod 4.5 gm/Sodium Chloride 100 ml @ 200 mls/hr Q6HRS 04/02/17 16:00 04/05/17 11:16 200 MLS/HR Polyethylene Glycol (miraLAX PACKET) 17 gm PRN DAILY PRN 04/03/17 08:30 Sodium Chloride 1,000 ml @ 75 mls/hr [id number] 04/02/17 16:00 04/05/17 11:17 75 MLS/HR Sodium Chloride (Normal Saline Flush) 10 ml 1X ONCE 04/02/17 11:15 04/02/17 11:22 DC 04/02/17 11:15 10 ML Vancomycin HCl 1 each 1X ONCE 04/05/17 12:30 04/05/17 12:31 DC Vancomycin HCl (Vanco Per Pharmacy) 1 each PRN DAILY PRN 04/02/17 15:30 04/04/17 05:43 1 EACH Vancomycin HCl 1.25 gm/Sodium Chloride 250 ml @ 166.667 mls/hr 1X ONCE 04/02/17 16:00 04/02/17 17:29 DC 04/02/17 16:11 166.667 MLS/HR Vancomycin HCl 1 gm/Sodium Chloride 250 ml @ 250 mls/hr Q8H 04/04/17 13:00 04/05/17 05:23 250 MLS/HR ALLERGIES: Allergies Coded Allergies Type Severity Reaction Last Updated Verified lisinopril Allergy Intermediate 03/19/17 Yes ROS: negative for 09/06 systems reviewed unless otherwise noted above in HPI. PHYSICAL EXAM: Vital Signs: Vital Signs Date Time Temp Pulse Resp B/P (MAP) Pulse Ox O2 Delivery O2 Flow Rate FiO2 04/05/17 11:11 93 Nasal Cannula 6.0 04/05/17 10:45 97.9 101 20 129/75 (93) 97.9 I & O Intake and Output 04/05/17 07:00 Intake Total 1700 ml Output Total 4200 ml Balance -2500 ml Intake Oral 500 ml IV Total 1200 ml Output Urine Total 4200 ml # Bowel Movements 1 Physical Exam: Gen: emaciated. weak on bipap CVS: irr irr. no m/r/g PULM: Severely decreased breath sounds bilatera abd soft nt/nd ext no edema. DIAGNOSTIC TESTING: Labs reviewed. EKG with afib with rvr. Lab Laboratory Tests Test 04/04/17 16:55 04/04/17 20:50 04/05/17 04:15 04/05/17 08:00 Glucose (Fingerstick) 98 mg/dL (70-99) 115 mg/dL (70-99) H 122 mg/dL (70-99) H White Blood Count 9.6 x10^3/uL (4.0-11.0) Red Blood Count 3.73 x10^6/uL (4.30-5.70) L Hemoglobin 10.9 g/dL (13.0-17.5) L Hematocrit 33.8 % (39.0-53.0) L Mean Corpuscular Volume 91 fL (79-100) Mean Corpuscular Hemoglobin 29 pg (25-35) Mean Corpuscular Hemoglobin Concent 32 g/dL (31-37) Red Cell Distribution Width 17.5 % (11.5-14.5) H Platelet Count 201 x10^3/uL (140-400) Neutrophils (%) (Auto) 84 % (31-73) H Lymphocytes (%) (Auto) 10 % (24-48) L Monocytes (%) (Auto) 6 % (0-9) Eosinophils (%) (Auto) 0 % (0-3) Basophils (%) (Auto) 0 % (0-3) Neutrophils # (Auto) 8.1 x10^3uL (1.8-7.7) H Lymphocytes # (Auto) 1.0 x10^3/uL (1.0-4.8) Monocytes # (Auto) 0.5 x10^3/uL (0.0-1.1) Eosinophils # (Auto) 0.0 x10^3/uL (0.0-0.7) Basophils # (Auto) 0.0 x10^3/uL (0.0-0.2) Sodium Level 144 mmol/L (136-145) Potassium Level 4.3 mmol/L (3.5-5.1) Chloride Level 103 mmol/L (98-107) Carbon Dioxide Level 41 mmol/L (21-32) H Anion Gap 0 (6-14) L Blood Urea Nitrogen 9 mg/dL (8-26) Creatinine 0.4 mg/dL (0.7-1.3) L Estimated GFR (Cockcroft-Gault) 255.1 Glucose Level 68 mg/dL (70-99) L Calcium Level 9.2 mg/dL (8.5-10.1) Total Bilirubin 0.3 mg/dL (0.2-1.0) Direct Bilirubin 0.2 mg/dL (0.0-0.2) Aspartate Amino Transf (AST/SGOT) 14 U/L (15-37) L Alkaline Phosphatase 14 U/L (46-116) L Total Protein 5.5 g/dL (6.4-8.2) L Albumin 2.2 g/dL (3.4-5.0) L Test 04/05/17 12:55 Vancomycin Level Trough 17.2 mcg/mL (10.0-20.0) Vancomycin Last Dose Date 04/05/17 Vancomycin Last Dose Time 0500 ASSESSMENT: 1. afib with rvr in the setting of severe respiratory failure chads vasc score of > 2 for age and HTN. PLAN: 1. Continue diltiazem 2. Will add digoxin. 3. Add Eliquis 5mg bid, monitor for anemia. Patient states that he is ok with anticoagulation for stroke prevention Last echo in october with normal EF. Supportive care. Thanks for consult. will follow peripherally. Consider hospice. Poor prognosis. CARMENCITA DOUGLAS MD April 05, 2017 13:59
[2017-04-05] MEDS: VANCOMYCIN PER PHARMACY MC PRN (14:07)
[2017-04-05] MEDS ORDERED: DIGOXIN IV 500 MCG/2 ML AMPUL. IV ONE ×2 (15:30→17:45)
[2017-04-05] MEDS: APIXABAN 5 MG TABLET. PO SCH ×2 (16:01→21:20)
[2017-04-05] MEDS ORDERED: MAGNESIUM SULFATE 2GM 50 ML IV ONE (17:45)
[2017-04-05] MEDS: DIGOXIN 125 MCG TABLET. PO SCH (18:03)
--- NOTE | 2017-04-05 20:51 | PDOC ---
PROGRESS NOTES Chief Complaint Chief Complaint Acute hypoxic, hypercapnic respir failure ASSESSMENT AND PLAN: 1. LLL PNA: HCAP; broad spectrum coverage with Zosyn, Vanco 2. COPD: nebs, suppl O2. back on steroids. BiPAP PRN 3. Leukocytosis: reactive 2/2 infection (and steroids). monitor 4. Anemia: mild, chronic. prob multifactorial. anemia profile c/w severe inflammation. low dose PO iron 5. Dehydration: mild at POA. resolved 6. DM2: diet controlled, but unmasked with steroids. ISS 7. Prophylaxis: PPI, lovenox History of Present Illness History of Present Illness on BiPAP, feels ok, daughter at bedside. no new issues Vitals Vitals Vital Signs Date Time Temp Pulse Resp B/P (MAP) Pulse Ox O2 Delivery O2 Flow Rate FiO2 04/05/17 19:18 95 BiPAP/CPAP 04/05/17 19:12 6.0 04/05/17 19:00 97.5 142 20 114/63 (80) 97.5 Physical Exam General: Alert, No acute distress, Other Heart: Regular rate Lungs: Wheezing, Other (on BiPAP) Abdomen: Normal bowel sounds, No tenderness, Other (cachectic) Extremities: No edema Skin: No rashes Labs LABS Laboratory Tests Test 04/04/17 20:50 04/05/17 04:15 04/05/17 08:00 04/05/17 11:01 Glucose (Fingerstick) 115 mg/dL (70-99) 122 mg/dL (70-99) 73 mg/dL (70-99) White Blood Count 9.6 x10^3/uL (4.0-11.0) Red Blood Count 3.73 x10^6/uL (4.30-5.70) Hemoglobin 10.9 g/dL (13.0-17.5) Hematocrit 33.8 % (39.0-53.0) Mean Corpuscular Volume 91 fL (79-100) Mean Corpuscular Hemoglobin 29 pg (25-35) Mean Corpuscular Hemoglobin Concent 32 g/dL (31-37) Red Cell Distribution Width 17.5 % (11.5-14.5) Platelet Count 201 x10^3/uL (140-400) Neutrophils (%) (Auto) 84 % (31-73) Lymphocytes (%) (Auto) 10 % (24-48) Monocytes (%) (Auto) 6 % (0-9) Eosinophils (%) (Auto) 0 % (0-3) Basophils (%) (Auto) 0 % (0-3) Neutrophils # (Auto) 8.1 x10^3uL (1.8-7.7) Lymphocytes # (Auto) 1.0 x10^3/uL (1.0-4.8) Monocytes # (Auto) 0.5 x10^3/uL (0.0-1.1) Eosinophils # (Auto) 0.0 x10^3/uL (0.0-0.7) Basophils # (Auto) 0.0 x10^3/uL (0.0-0.2) Sodium Level 144 mmol/L (136-145) Potassium Level 4.3 mmol/L (3.5-5.1) Chloride Level 103 mmol/L (98-107) Carbon Dioxide Level 41 mmol/L (21-32) Anion Gap 0 (6-14) Blood Urea Nitrogen 9 mg/dL (8-26) Creatinine 0.4 mg/dL (0.7-1.3) Estimated GFR (Cockcroft-Gault) 255.1 Glucose Level 68 mg/dL (70-99) Calcium Level 9.2 mg/dL (8.5-10.1) Total Bilirubin 0.3 mg/dL (0.2-1.0) Direct Bilirubin 0.2 mg/dL (0.0-0.2) Aspartate Amino Transf (AST/SGOT) 14 U/L (15-37) Alanine Aminotransferase (ALT/SGPT) 21 U/L (16-63) Alkaline Phosphatase 14 U/L (46-116) Total Protein 5.5 g/dL (6.4-8.2) Albumin 2.2 g/dL (3.4-5.0) Test 04/05/17 12:55 04/05/17 20:17 Vancomycin Level Trough 17.2 mcg/mL (10.0-20.0) Vancomycin Last Dose Date 04/05/17 Vancomycin Last Dose Time 0500 Glucose (Fingerstick) 224 mg/dL (70-99) Nutrition Consultation Dietary Evaluation: Recommendations by RD: Increase Calorie Intake, Protein supplementation Comments: Add chocolate Ensure TID (provides 350 calories, 20 grams protein per serving) Encourage good PO intake Expected Outcomes/Goals: meet 75% estimated nutrition needs Malnutrition Findings: Body Fat Depletion (Non Severe: Mild Depletion Reduced Cherry Dipper Strength: N/A Reduced Cherry Dipper Strength (Non-Sev: N/A Malnutrition related to morbid: No Weight Status: Underweight YO SNOWDEN MD April 05, 2017 20:51
[2017-04-05] MEDS ORDERED: IBUTILIDE IV ONE (22:00)
[2017-04-05] MEDS ORDERED: NORMAL SALINE IV ONE (22:00)
[2017-04-05] MEDS ORDERED: POTASSIUM CHLORIDE 20 MEQ/15 ML ORAL LIQUID. PO ONE (23:00)
[2017-04-06] VITALS (9 sets, daily range): BP systolic 112–156; BP diastolic 63–82
[2017-04-06] MEDS: VANCOMYCIN 1 GM in IV NORMAL SALINE 250ML 250 ML IV SCH (05:26)
[2017-04-06] MEDS: PIPERACILLIN/TAZOBACTAM 4.5 GM in IV NORMAL SALINE 100ML 100 ML IV SCH ×3 (05:26→18:32)
[2017-04-06 05:44] LABS: BASO % 0 % (0-3); EOS % 0 % (0-3); HEMATOCRIT 35.3 % (39.0-53.0); HEMOGLOBIN 11.1 g/dL (13.0-17.5); LYMPH # 0.5 x10^3/uL (1.0-4.8); LYMPH % 8 % (24-48); MEAN CORPUSCULAR HEMOGLOBIN 29 pg (25-35); MEAN CORPUSCULAR HGB CONC 32 g/dL (31-37); MEAN CORPUSCULAR VOLUME 92 fL (79-100); MONO % 4 % (0-9); NEUT % 88 % (31-73); PLATELET COUNT 217 x10^3/uL (140-400); RED BLOOD COUNT 3.83 x10^6/uL (4.30-5.70); RED CELL DISTRIBUTION WIDTH 16.9 % (11.5-14.5); WHITE BLOOD COUNT 6.1 x10^3/uL (4.0-11.0)
[2017-04-06 05:59] LABS: BLOOD UREA NITROGEN 8 mg/dL (8-26); CALCIUM 9.2 mg/dL (8.5-10.1); CARBON DIOXIDE 44 mmol/L (21-32); CHLORIDE 99 mmol/L (98-107); CREATININE 0.4 mg/dL (0.7-1.3); GFR 255.1; GLUCOSE 153 mg/dL (70-99); POTASSIUM 4.3 mmol/L (3.5-5.1); SODIUM 142 mmol/L (136-145)
[2017-04-06] MEDS: BISACODYL 5 MG TABLET.DR. PO SCH (06:00)
[2017-04-06] MEDS: IPRATRPIUM/ALBUTEROL 0.5/2.5MG 3 ML NEBU. NEB SCH (07:44)
[2017-04-06] MEDS: BUDESONIDE 0.5 MG/2 ML NEBU. NEB SCH ×2 (07:44→20:32)
[2017-04-06] MEDS: INSULIN ASPART 300 UNITS/3 ML INSULN.PEN SQ SCH ×3 (08:00→17:00)
--- NOTE | 2017-04-06 09:34 | PDOC ---
PULMONARY PROGRESS NOTES Subjective svt, transferred to cvicu. on vm 50% fio2, used bipap last night, helps his sob , has runny nose, cough, no pain Vitals Vital Signs Date Time Temp Pulse Resp B/P (MAP) Pulse Ox O2 Delivery O2 Flow Rate FiO2 04/06/17 07:50 Nasal Cannula 6.0 04/06/17 07:49 97.8 109 23 119/74 (89) 94 97.8 ROS: No Nausea, No Abdominal Pain General: Alert, No acute distress, Mild Distress HEENT: Other (nc at [facility]) Lungs: Other (deminished) Cardiovascular: S1, S2 Abdomen: Soft, Non-tender Neuro Exam: Alert Extremities: No Edema Skin: Warm Labs Laboratory Tests Test 04/04/17 11:30 04/04/17 16:55 04/04/17 20:50 04/05/17 04:15 Glucose (Fingerstick) 168 mg/dL (70-99) 98 mg/dL (70-99) 115 mg/dL (70-99) White Blood Count 9.6 x10^3/uL (4.0-11.0) Red Blood Count 3.73 x10^6/uL (4.30-5.70) Hemoglobin 10.9 g/dL (13.0-17.5) Hematocrit 33.8 % (39.0-53.0) Mean Corpuscular Volume 91 fL (79-100) Mean Corpuscular Hemoglobin 29 pg (25-35) Mean Corpuscular Hemoglobin Concent 32 g/dL (31-37) Red Cell Distribution Width 17.5 % (11.5-14.5) Platelet Count 201 x10^3/uL (140-400) Neutrophils (%) (Auto) 84 % (31-73) Lymphocytes (%) (Auto) 10 % (24-48) Monocytes (%) (Auto) 6 % (0-9) Eosinophils (%) (Auto) 0 % (0-3) Basophils (%) (Auto) 0 % (0-3) Neutrophils # (Auto) 8.1 x10^3uL (1.8-7.7) Lymphocytes # (Auto) 1.0 x10^3/uL (1.0-4.8) Monocytes # (Auto) 0.5 x10^3/uL (0.0-1.1) Eosinophils # (Auto) 0.0 x10^3/uL (0.0-0.7) Basophils # (Auto) 0.0 x10^3/uL (0.0-0.2) Sodium Level 144 mmol/L (136-145) Potassium Level 4.3 mmol/L (3.5-5.1) Chloride Level 103 mmol/L (98-107) Carbon Dioxide Level 41 mmol/L (21-32) Anion Gap 0 (6-14) Blood Urea Nitrogen 9 mg/dL (8-26) Creatinine 0.4 mg/dL (0.7-1.3) Estimated GFR (Cockcroft-Gault) 255.1 Glucose Level 68 mg/dL (70-99) Calcium Level 9.2 mg/dL (8.5-10.1) Total Bilirubin 0.3 mg/dL (0.2-1.0) Direct Bilirubin 0.2 mg/dL (0.0-0.2) Aspartate Amino Transf (AST/SGOT) 14 U/L (15-37) Alanine Aminotransferase (ALT/SGPT) 21 U/L (16-63) Alkaline Phosphatase 14 U/L (46-116) Total Protein 5.5 g/dL (6.4-8.2) Albumin 2.2 g/dL (3.4-5.0) Test 04/05/17 08:00 04/05/17 11:01 04/05/17 12:55 04/05/17 16:49 Glucose (Fingerstick) 122 mg/dL (70-99) 73 mg/dL (70-99) 206 mg/dL (70-99) Vancomycin Level Trough 17.2 mcg/mL (10.0-20.0) Vancomycin Last Dose Date 04/05/17 Vancomycin Last Dose Time 0500 Test 04/05/17 20:17 04/05/17 21:00 04/05/17 22:00 04/06/17 05:05 Glucose (Fingerstick) 224 mg/dL (70-99) 200 mg/dL (70-99) Potassium Level 3.9 mmol/L (3.5-5.1) 4.3 mmol/L (3.5-5.1) White Blood Count 6.1 x10^3/uL (4.0-11.0) Red Blood Count 3.83 x10^6/uL (4.30-5.70) Hemoglobin 11.1 g/dL (13.0-17.5) Hematocrit 35.3 % (39.0-53.0) Mean Corpuscular Volume 92 fL (79-100) Mean Corpuscular Hemoglobin 29 pg (25-35) Mean Corpuscular Hemoglobin Concent 32 g/dL (31-37) Red Cell Distribution Width 16.9 % (11.5-14.5) Platelet Count 217 x10^3/uL (140-400) Neutrophils (%) (Auto) 88 % (31-73) Lymphocytes (%) (Auto) 8 % (24-48) Monocytes (%) (Auto) 4 % (0-9) Eosinophils (%) (Auto) 0 % (0-3) Basophils (%) (Auto) 0 % (0-3) Neutrophils # (Auto) 5.4 x10^3uL (1.8-7.7) Lymphocytes # (Auto) 0.5 x10^3/uL (1.0-4.8) Monocytes # (Auto) 0.2 x10^3/uL (0.0-1.1) Eosinophils # (Auto) 0.0 x10^3/uL (0.0-0.7) Basophils # (Auto) 0.0 x10^3/uL (0.0-0.2) Sodium Level 142 mmol/L (136-145) Chloride Level 99 mmol/L (98-107) Carbon Dioxide Level 44 mmol/L (21-32) Anion Gap (6-14) Blood Urea Nitrogen 8 mg/dL (8-26) Creatinine 0.4 mg/dL (0.7-1.3) Estimated GFR (Cockcroft-Gault) 255.1 Glucose Level 153 mg/dL (70-99) Calcium Level 9.2 mg/dL (8.5-10.1) Test 04/06/17 08:23 Glucose (Fingerstick) 92 mg/dL (70-99) Laboratory Tests Test 04/05/17 11:01 04/05/17 12:55 04/05/17 16:49 04/05/17 20:17 Glucose (Fingerstick) 73 mg/dL (70-99) 206 mg/dL (70-99) 224 mg/dL (70-99) Vancomycin Level Trough 17.2 mcg/mL (10.0-20.0) Vancomycin Last Dose Date 04/05/17 Vancomycin Last Dose Time 0500 Test 04/05/17 21:00 04/05/17 22:00 04/06/17 05:05 04/06/17 08:23 Potassium Level 3.9 mmol/L (3.5-5.1) 4.3 mmol/L (3.5-5.1) Glucose (Fingerstick) 200 mg/dL (70-99) 92 mg/dL (70-99) White Blood Count 6.1 x10^3/uL (4.0-11.0) Red Blood Count 3.83 x10^6/uL (4.30-5.70) Hemoglobin 11.1 g/dL (13.0-17.5) Hematocrit 35.3 % (39.0-53.0) Mean Corpuscular Volume 92 fL (79-100) Mean Corpuscular Hemoglobin 29 pg (25-35) Mean Corpuscular Hemoglobin Concent 32 g/dL (31-37) Red Cell Distribution Width 16.9 % (11.5-14.5) Platelet Count 217 x10^3/uL (140-400) Neutrophils (%) (Auto) 88 % (31-73) Lymphocytes (%) (Auto) 8 % (24-48) Monocytes (%) (Auto) 4 % (0-9) Eosinophils (%) (Auto) 0 % (0-3) Basophils (%) (Auto) 0 % (0-3) Neutrophils # (Auto) 5.4 x10^3uL (1.8-7.7) Lymphocytes # (Auto) 0.5 x10^3/uL (1.0-4.8) Monocytes # (Auto) 0.2 x10^3/uL (0.0-1.1) Eosinophils # (Auto) 0.0 x10^3/uL (0.0-0.7) Basophils # (Auto) 0.0 x10^3/uL (0.0-0.2) Sodium Level 142 mmol/L (136-145) Chloride Level 99 mmol/L (98-107) Carbon Dioxide Level 44 mmol/L (21-32) Anion Gap (6-14) Blood Urea Nitrogen 8 mg/dL (8-26) Creatinine 0.4 mg/dL (0.7-1.3) Estimated GFR (Cockcroft-Gault) 255.1 Glucose Level 153 mg/dL (70-99) Calcium Level 9.2 mg/dL (8.5-10.1) Medications Active Scripts Medications Dose Route/Sig Max Daily Dose Days Date Category Dose Instructions Albuterol Sulfate Neb Soln (Albuterol Sulfate) 2.5 Mg/3 Ml Vial.neb 1 Vial NEB Q4HRS 03/19/17 Reported Albuterol Sulfate Neb Soln (Albuterol Sulfate) 2.5 Mg/3 Ml Vial.neb 2.5 Mg NEB PRN Q2HR PRN 03/19/17 Reported Nexium Capsule (Esomeprazole Magnesium) 20 Mg Capsule.dr 20 Mg PO DAILYAC 03/19/17 Reported Clonazepam 0.5 Mg Tablet 0.5 Mg PO BID 30 03/01/17 Rx Prednisone 20 Mg Tablet 30 Mg PO DAILY 30 03/01/17 Rx one and half tab for 3 day then 1tab for 3 day then half tab daily till seen Dr. Edie Olguin Xt (Diltiazem Hcl) 300 Mg Cap.er.24h 300 Mg PO DAILY 02/22/17 Reported Fluticasone Propionate Nasal [place] (Fluticasone Propionate) 16 Gm [place].susp 2 [place] NS PRN DAILY PRN 12/09/16 Rx Milk Of Magnesia (Magnesium Hydroxide) 2,400 Mg/10 Ml Oral.susp 5,200 Mg PO PRN DAILY PRN 12/07/16 Reported Duoneb 0.5-3(2.5) Mg/3 Ml (Albuterol/Ipratropium) 3 Ml Ampul.neb 3 Ml NEB PRN Q2HR PRN 11/11/16 Reported Prilosec (Omeprazole Magnesium) 10 Mg Suspdr.pkt 20 Mg PO DAILY 11/11/16 Reported Miralax (Polyethylene Glycol 3350) 17 Gm Powd.pack 1 Packet PO DAILY PRN 11/11/16 Reported Symbicort 160-4.5 Mcg Inhaler (Budesonide/Formoterol Fumarate) 10.2 Gm Hfa.aer.ad 2 Puff IH BID 11/11/16 Reported Oxycodone Hcl 20 Mg Tablet 20 Mg PO PRN QID PRN 06/13/16 Reported Bisacodyl 5 Mg Tablet.dr 5 Mg PO DAILY06 06/13/16 Reported Impression . 1. Acute on chronic hypercapnic and hypoxic respiratory failure secondary to healthcare-associated pneumonia involving the left lung. 2. Leukocytosis secondary to new pneumonia. 3. Abnormal chest x-ray with new infiltrates in the left perihilar and left lower lobes consistent with pneumonia. 4. Mild dehydration. 5. 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 6. svt Plan . 1. BIPAP prn during day, continuously Qhs, resp status improved w steroid 2. Broad-spectrum antibiotics to cover for healthcare-associated pneumonia, may dc vanc. 3. Follow chest x-rays today 4. Follow up ABGs improved 5. Bronchodilators to Atrovent only, had svt, avoid alb. 6. Deep venous thrombosis prophylaxis. 7. pulmicort, cont systemic steroids. 8. Discussed with RN and pt TAVON PLATT MD April 06, 2017 09:34
[2017-04-06] MEDS: PANTOPRAZOLE 40 MG TABLET.DR. PO SCH (10:09)
[2017-04-06] MEDS: clonazePAM 0.5 MG TABLET PO PRN (10:09)
[2017-04-06] MEDS: APIXABAN 5 MG TABLET. PO SCH ×2 (10:09→20:40)
[2017-04-06] MEDS: DIGOXIN 125 MCG TABLET. PO SCH (10:09)
[2017-04-06] MEDS: methylPREDNISolone SOD SUCC PF 40 MG/ML VIAL. IV SCH ×2 (10:10→20:41)
--- NOTE | 2017-04-06 10:16 | RAD ---
Examination: Single frontal view of the chest History: History of shortness of breath Comparison: 04/02/2017 Findings: Volume loss identified in the left lung again identified with deviation of the mediastinum to the left. Left lung base airspace opacity likely pneumonia or atelectasis. The faint airspace opacities identified in the left hilar region grossly similar to prior exam. Hyperinflation of the right lung likely due to emphysematous change. Impression: 1. Volume loss identified in the left lung base with deviation of the mediastinum to the left. 2. Airspace opacity identified in the left lung base and left hilar region likely atelectasis or infiltrate is grossly similar to prior exam. Follow-up to resolution. 3. Hyperinflated right lung likely represent emphysematous changes.
--- NOTE | 2017-04-06 10:19 | PDOC ---
Provider Note Provider Note Overnight noted to have had afib with rvr received Ibutilide. Now in Sinus tachycardia. Continues to suffer from severe resp failure. Would strongly recommend hospice, but will defer to pulmonary. Given his respiratory issues, he will continue to have tachyarrhythmias, but no significant permanent options right now, poor candidate for ablation and pacemaker. Will follow peripherally. Continue anticoagulation with eliquis and continue digoxin and diltiazem. Pls call with questions. CARMENCITA DOUGLAS MD April 06, 2017 10:19
[2017-04-06] MEDS: IPRATROPIUM BROMIDE 0.5 MG/2.5 ML NEBU. NEB SCH ×3 (11:47→20:32)
[2017-04-06] MEDS: IV NORMAL SALINE 1000ML BAG 1,000 ML IV SCH (11:50)
--- NOTE | 2017-04-06 17:06 | PDOC ---
PROGRESS NOTES Chief Complaint Chief Complaint Acute hypoxic, hypercapnic respir failure ASSESSMENT AND PLAN: 1. Afib w/RVR: noted O/N, prompting transfer to CVC. received ibutilide, now back in sinus tach. 2/2 respir distress rather than primary cardiac. appreciate dr Lind's input. 2. LLL PNA: HCAP; broad spectrum coverage with Zosyn, Vanco 3. COPD: nebs, suppl O2. back on steroids. BiPAP PRN 4. Leukocytosis: reactive 2/2 infection (and steroids). monitor 5. Anemia: mild, chronic. prob multifactorial. anemia profile c/w severe inflammation. low dose PO iron 6. Dehydration: mild at POA. resolved 7. Cachexia: severe. unable to eat sufficiently 2/2 SOB. failed Marinol, Megace as appetite stimulants 8. DM2: diet controlled, but unmasked with steroids. ISS 9. Prophylaxis: PPI, lovenox 10. Dispo: needs end-of life discussion! palliative care consult History of Present Illness History of Present Illness just came off BiPAP, severely SOB, on 35%FM Vitals Vitals Vital Signs Date Time Temp Pulse Resp B/P (MAP) Pulse Ox O2 Delivery O2 Flow Rate FiO2 04/06/17 15:39 97.5 99 23 156/81 (106) 87 BiPAP/CPAP 97.5 04/06/17 15:23 9.0 Physical Exam General: Alert, No acute distress, Other Heart: Regular rate Lungs: Other (deminished) Abdomen: Normal bowel sounds, No tenderness, Other (cachectic) Extremities: No edema Skin: No rashes Labs LABS Laboratory Tests Test 04/05/17 20:17 04/05/17 21:00 04/05/17 22:00 04/06/17 05:05 Glucose (Fingerstick) 224 mg/dL (70-99) 200 mg/dL (70-99) Potassium Level 3.9 mmol/L (3.5-5.1) 4.3 mmol/L (3.5-5.1) White Blood Count 6.1 x10^3/uL (4.0-11.0) Red Blood Count 3.83 x10^6/uL (4.30-5.70) Hemoglobin 11.1 g/dL (13.0-17.5) Hematocrit 35.3 % (39.0-53.0) Mean Corpuscular Volume 92 fL (79-100) Mean Corpuscular Hemoglobin 29 pg (25-35) Mean Corpuscular Hemoglobin Concent 32 g/dL (31-37) Red Cell Distribution Width 16.9 % (11.5-14.5) Platelet Count 217 x10^3/uL (140-400) Neutrophils (%) (Auto) 88 % (31-73) Lymphocytes (%) (Auto) 8 % (24-48) Monocytes (%) (Auto) 4 % (0-9) Eosinophils (%) (Auto) 0 % (0-3) Basophils (%) (Auto) 0 % (0-3) Neutrophils # (Auto) 5.4 x10^3uL (1.8-7.7) Lymphocytes # (Auto) 0.5 x10^3/uL (1.0-4.8) Monocytes # (Auto) 0.2 x10^3/uL (0.0-1.1) Eosinophils # (Auto) 0.0 x10^3/uL (0.0-0.7) Basophils # (Auto) 0.0 x10^3/uL (0.0-0.2) Sodium Level 142 mmol/L (136-145) Chloride Level 99 mmol/L (98-107) Carbon Dioxide Level 44 mmol/L (21-32) Anion Gap (6-14) Blood Urea Nitrogen 8 mg/dL (8-26) Creatinine 0.4 mg/dL (0.7-1.3) Estimated GFR (Cockcroft-Gault) 255.1 Glucose Level 153 mg/dL (70-99) Calcium Level 9.2 mg/dL (8.5-10.1) Test 04/06/17 08:23 Glucose (Fingerstick) 92 mg/dL (70-99) Nutrition Consultation Dietary Evaluation: Recommendations by RD: Increase Calorie Intake, Protein supplementation Comments: Add chocolate Ensure TID (provides 350 calories, 20 grams protein per serving) Encourage good PO intake Expected Outcomes/Goals: meet 75% estimated nutrition needs Malnutrition Findings: Body Fat Depletion (Non Severe: Mild Depletion Reduced Object Oriented Programmer Strength: N/A Reduced Object Oriented Programmer Strength (Non-Sev: N/A Malnutrition related to morbid: No Weight Status: Underweight YO SNOWDEN MD April 06, 2017:06
[2017-04-07] MEDS: IV NORMAL SALINE 1000ML BAG 1,000 ML IV SCH ×2 (02:40→11:14)
[2017-04-07 03:15] VITALS: BP 137/63
[2017-04-07] MEDS: BISACODYL 5 MG TABLET.DR. PO SCH (05:17)
[2017-04-07] MEDS: PIPERACILLIN/TAZOBACTAM 4.5 GM in IV NORMAL SALINE 100ML 100 ML IV SCH ×6 (05:17→23:49)
[2017-04-07 05:18] LABS: BASO % 0 % (0-3); EOS % 0 % (0-3); HEMATOCRIT 41.4 % (39.0-53.0); LYMPH # 0.9 x10^3/uL (1.0-4.8); LYMPH % 10 % (24-48); MEAN CORPUSCULAR HEMOGLOBIN 29 pg (25-35); MEAN CORPUSCULAR HGB CONC 31 g/dL (31-37); MEAN CORPUSCULAR VOLUME 92 fL (79-100); MONO % 4 % (0-9); NEUT % 86 % (31-73); PLATELET COUNT 244 x10^3/uL (140-400); WHITE BLOOD COUNT 8.5 x10^3/uL (4.0-11.0)
[2017-04-07 05:26] LABS: BLOOD UREA NITROGEN 7 mg/dL (8-26); CARBON DIOXIDE 45 mmol/L (21-32); CHLORIDE 99 mmol/L (98-107); CREATININE 0.4 mg/dL (0.7-1.3); GFR 255.1; GLUCOSE 107 mg/dL (70-99); POTASSIUM 4.2 mmol/L (3.5-5.1); SODIUM 141 mmol/L (136-145)
[2017-04-07 07:00] VITALS: BP 140/72
[2017-04-07] MEDS: IPRATROPIUM BROMIDE 0.5 MG/2.5 ML NEBU. NEB SCH ×4 (07:41→19:32)
[2017-04-07] MEDS: BUDESONIDE 0.5 MG/2 ML NEBU. NEB SCH ×2 (07:42→19:32)
[2017-04-07] MEDS: INSULIN ASPART 300 UNITS/3 ML INSULN.PEN SQ SCH ×3 (08:00→18:30)
--- NOTE | 2017-04-07 08:49 | PDOC ---
PULMONARY PROGRESS NOTES Subjective c/o soa Vitals Vital Signs Date Time Temp Pulse Resp B/P (MAP) Pulse Ox O2 Delivery O2 Flow Rate FiO2 04/07/17 07:38 96 BiPAP/CPAP 04/07/17 07:00 96.7 95 23 140/72 (94) 96.7 04/06/17 21:35 9.0 ROS: No Nausea, No Abdominal Pain General: Alert, No acute distress, Mild Distress HEENT: Other (nc at [facility]) Lungs: Other (deminished) Cardiovascular: S1, S2 Abdomen: Soft, Non-tender Neuro Exam: Alert Extremities: No Edema Skin: Warm Labs Laboratory Tests Test 04/05/17 11:01 04/05/17 12:55 04/05/17 16:49 04/05/17 20:17 Glucose (Fingerstick) 73 mg/dL (70-99) 206 mg/dL (70-99) 224 mg/dL (70-99) Vancomycin Level Trough 17.2 mcg/mL (10.0-20.0) Vancomycin Last Dose Date 04/05/17 Vancomycin Last Dose Time 0500 Test 04/05/17 21:00 04/05/17 22:00 04/06/17 05:05 04/06/17 08:23 Potassium Level 3.9 mmol/L (3.5-5.1) 4.3 mmol/L (3.5-5.1) Glucose (Fingerstick) 200 mg/dL (70-99) 92 mg/dL (70-99) White Blood Count 6.1 x10^3/uL (4.0-11.0) Red Blood Count 3.83 x10^6/uL (4.30-5.70) Hemoglobin 11.1 g/dL (13.0-17.5) Hematocrit 35.3 % (39.0-53.0) Mean Corpuscular Volume 92 fL (79-100) Mean Corpuscular Hemoglobin 29 pg (25-35) Mean Corpuscular Hemoglobin Concent 32 g/dL (31-37) Red Cell Distribution Width 16.9 % (11.5-14.5) Platelet Count 217 x10^3/uL (140-400) Neutrophils (%) (Auto) 88 % (31-73) Lymphocytes (%) (Auto) 8 % (24-48) Monocytes (%) (Auto) 4 % (0-9) Eosinophils (%) (Auto) 0 % (0-3) Basophils (%) (Auto) 0 % (0-3) Neutrophils # (Auto) 5.4 x10^3uL (1.8-7.7) Lymphocytes # (Auto) 0.5 x10^3/uL (1.0-4.8) Monocytes # (Auto) 0.2 x10^3/uL (0.0-1.1) Eosinophils # (Auto) 0.0 x10^3/uL (0.0-0.7) Basophils # (Auto) 0.0 x10^3/uL (0.0-0.2) Sodium Level 142 mmol/L (136-145) Chloride Level 99 mmol/L (98-107) Carbon Dioxide Level 44 mmol/L (21-32) Anion Gap (6-14) Blood Urea Nitrogen 8 mg/dL (8-26) Creatinine 0.4 mg/dL (0.7-1.3) Estimated GFR (Cockcroft-Gault) 255.1 Glucose Level 153 mg/dL (70-99) Calcium Level 9.2 mg/dL (8.5-10.1) Test 04/06/17 18:23 04/06/17 20:55 04/07/17 04:26 04/07/17 07:30 Glucose (Fingerstick) 144 mg/dL (70-99) 117 mg/dL (70-99) 106 mg/dL (70-99) White Blood Count 8.5 x10^3/uL (4.0-11.0) Red Blood Count 4.50 x10^6/uL (4.30-5.70) Hemoglobin 13.0 g/dL (13.0-17.5) Hematocrit 41.4 % (39.0-53.0) Mean Corpuscular Volume 92 fL (79-100) Mean Corpuscular Hemoglobin 29 pg (25-35) Mean Corpuscular Hemoglobin Concent 31 g/dL (31-37) Red Cell Distribution Width 17.0 % (11.5-14.5) Platelet Count 244 x10^3/uL (140-400) Neutrophils (%) (Auto) 86 % (31-73) Lymphocytes (%) (Auto) 10 % (24-48) Monocytes (%) (Auto) 4 % (0-9) Eosinophils (%) (Auto) 0 % (0-3) Basophils (%) (Auto) 0 % (0-3) Neutrophils # (Auto) 7.3 x10^3uL (1.8-7.7) Lymphocytes # (Auto) 0.9 x10^3/uL (1.0-4.8) Monocytes # (Auto) 0.3 x10^3/uL (0.0-1.1) Eosinophils # (Auto) 0.0 x10^3/uL (0.0-0.7) Basophils # (Auto) 0.0 x10^3/uL (0.0-0.2) Sodium Level 141 mmol/L (136-145) Potassium Level 4.2 mmol/L (3.5-5.1) Chloride Level 99 mmol/L (98-107) Carbon Dioxide Level 45 mmol/L (21-32) Anion Gap (6-14) Blood Urea Nitrogen 7 mg/dL (8-26) Creatinine 0.4 mg/dL (0.7-1.3) Estimated GFR (Cockcroft-Gault) 255.1 Glucose Level 107 mg/dL (70-99) Calcium Level 10.0 mg/dL (8.5-10.1) Laboratory Tests Test 04/06/17 18:23 04/06/17 20:55 04/07/17 04:26 04/07/17 07:30 Glucose (Fingerstick) 144 mg/dL (70-99) 117 mg/dL (70-99) 106 mg/dL (70-99) White Blood Count 8.5 x10^3/uL (4.0-11.0) Red Blood Count 4.50 x10^6/uL (4.30-5.70) Hemoglobin 13.0 g/dL (13.0-17.5) Hematocrit 41.4 % (39.0-53.0) Mean Corpuscular Volume 92 fL (79-100) Mean Corpuscular Hemoglobin 29 pg (25-35) Mean Corpuscular Hemoglobin Concent 31 g/dL (31-37) Red Cell Distribution Width 17.0 % (11.5-14.5) Platelet Count 244 x10^3/uL (140-400) Neutrophils (%) (Auto) 86 % (31-73) Lymphocytes (%) (Auto) 10 % (24-48) Monocytes (%) (Auto) 4 % (0-9) Eosinophils (%) (Auto) 0 % (0-3) Basophils (%) (Auto) 0 % (0-3) Neutrophils # (Auto) 7.3 x10^3uL (1.8-7.7) Lymphocytes # (Auto) 0.9 x10^3/uL (1.0-4.8) Monocytes # (Auto) 0.3 x10^3/uL (0.0-1.1) Eosinophils # (Auto) 0.0 x10^3/uL (0.0-0.7) Basophils # (Auto) 0.0 x10^3/uL (0.0-0.2) Sodium Level 141 mmol/L (136-145) Potassium Level 4.2 mmol/L (3.5-5.1) Chloride Level 99 mmol/L (98-107) Carbon Dioxide Level 45 mmol/L (21-32) Anion Gap (6-14) Blood Urea Nitrogen 7 mg/dL (8-26) Creatinine 0.4 mg/dL (0.7-1.3) Estimated GFR (Cockcroft-Gault) 255.1 Glucose Level 107 mg/dL (70-99) Calcium Level 10.0 mg/dL (8.5-10.1) Medications Active Scripts Medications Dose Route/Sig Max Daily Dose Days Date Category Dose Instructions Albuterol Sulfate Neb Soln (Albuterol Sulfate) 2.5 Mg/3 Ml Vial.neb 1 Vial NEB Q4HRS 03/19/17 Reported Albuterol Sulfate Neb Soln (Albuterol Sulfate) 2.5 Mg/3 Ml Vial.neb 2.5 Mg NEB PRN Q2HR PRN 03/19/17 Reported Nexium Capsule (Esomeprazole Magnesium) 20 Mg Capsule.dr 20 Mg PO DAILYAC 03/19/17 Reported Clonazepam 0.5 Mg Tablet 0.5 Mg PO BID 30 03/01/17 Rx Prednisone 20 Mg Tablet 30 Mg PO DAILY 30 03/01/17 Rx one and half tab for 3 day then 1tab for 3 day then half tab daily till seen Dr. Edie Olguin Xt (Diltiazem Hcl) 300 Mg Cap.er.24h 300 Mg PO DAILY 02/22/17 Reported Fluticasone Propionate Nasal [place] (Fluticasone Propionate) 16 Gm [place].susp 2 [place] NS PRN DAILY PRN 12/09/16 Rx Milk Of Magnesia (Magnesium Hydroxide) 2,400 Mg/10 Ml Oral.susp 5,200 Mg PO PRN DAILY PRN 12/07/16 Reported Duoneb 0.5-3(2.5) Mg/3 Ml (Albuterol/Ipratropium) 3 Ml Ampul.neb 3 Ml NEB PRN Q2HR PRN 11/11/16 Reported Prilosec (Omeprazole Magnesium) 10 Mg Suspdr.pkt 20 Mg PO DAILY 11/11/16 Reported Miralax (Polyethylene Glycol 3350) 17 Gm Powd.pack 1 Packet PO DAILY PRN 11/11/16 Reported Symbicort 160-4.5 Mcg Inhaler (Budesonide/Formoterol Fumarate) 10.2 Gm Hfa.aer.ad 2 Puff IH BID 11/11/16 Reported Oxycodone Hcl 20 Mg Tablet 20 Mg PO PRN QID PRN 06/13/16 Reported Bisacodyl 5 Mg Tablet.dr 5 Mg PO DAILY06 06/13/16 Reported Impression . 1. Acute on chronic hypercapnic and hypoxic respiratory failure secondary to healthcare-associated pneumonia involving the left lung. 2. Leukocytosis secondary to new pneumonia. 3. Abnormal chest x-ray with new infiltrates in the left perihilar and left lower lobes consistent with pneumonia. 4. Mild dehydration. 5. 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 6. SVT Plan . 1. BIPAP prn during day, continuously Qhs, resp status MARGINAL 2. Broad-spectrum antibiotics to cover for healthcare-associated pneumonia, 3. Follow chest x-rays WITH NO SIG CHANGE, WILL GET CT CHEST 4. Follow ABG today 5. Bronchodilators to Atrovent only, had svt, avoid alb. 6. Deep venous thrombosis prophylaxis. 7. pulmicort, cont systemic steroids. 8. Discussed with RN and pt JOHN BAIRES MD April 07, 2017 08:49
[2017-04-07 10:58] VITALS: BP 126/71
[2017-04-07] MEDS: methylPREDNISolone SOD SUCC PF 40 MG/ML VIAL. IV SCH ×2 (11:15→22:13)
[2017-04-07] MEDS: DIGOXIN 125 MCG TABLET. PO SCH (11:16)
[2017-04-07] MEDS: APIXABAN 5 MG TABLET. PO SCH ×2 (11:16→22:13)
[2017-04-07] MEDS: PANTOPRAZOLE 40 MG TABLET.DR. PO SCH (11:16)
--- NOTE | 2017-04-07 13:48 | RAD ---
Examination: CT chest without contrast History: History of persistent pneumonia. Comparison: 06/01/2016 Technique: Axial CT images of the chest were performed without contrast. Coronal and sagittal reformats are performed PQRS Compliance Statement: One or more of the following individualized dose reduction techniques were utilized for this examination: 1. Automated exposure control 2. Adjustment of the mA and/or kV according to patient size 3. Use of iterative reconstruction technique Findings: The heart size grossly appears unremarkable. Coronary artery calcifications identified. The ascending aorta measures 3.6 cm in transverse dimension and 3.5 cm in AP dimension. There is volume loss identified in the left lung with complete opacification of the left main bronchus distally. There is a soft tissue density filling the left distal bronchus particularly in the region of the left lingula and the left lower lobe. The left upper lobe bronchus is also opacified partially. Left lower lobe lung consolidation identified likely pneumonia or postobstructive atelectasis. Left-sided pleural effusion identified. Emphysematous is identified in the bilateral lungs. The visualized noncontrasted liver, spleen, adrenals grossly appears unremarkable. Bilobed cyst or septated cyst identified in the right upper pole of the kidney measuring 8.4 cm grossly similar to prior exam The infrarenal abdominal aorta appears measures 4.1 x 3.8 cm likely mildly aneurysmal change. Moderate degenerative changes thoracic spine Impression: 1. Complete opacification of the left distal main bronchus with opacities extending into the left upper lobe bronchus and left lower lobe bronchus could be mucus plugging or endobronchial lesion with postobstructive atelectasis in the left lower lobe lung with left lower lobe consolidation identified. Bronchoscopic evaluation can be considered. 2. Emphysematous changes identified in the bilateral lungs. 3. Left pleural effusion. 4. Bilobed cyst or septated cyst identified in the right upper pole of the kidney measuring 8.4 cm grossly similar to prior exam. 5. Infrarenal abdominal aortic aneurysm measuring 4.1 cm.
--- NOTE | 2017-04-07 14:00 | PDOC ---
PROGRESS NOTES Chief Complaint Chief Complaint Acute hypoxic, hypercapnic respir failure ASSESSMENT AND PLAN: 1. Afib w/RVR: noted O/N, prompting transfer to CVC. received ibutilide, now back in sinus tach. 2/2 respir distress rather than primary cardiac. appreciate dr Lind's input. 2. LLL PNA: HCAP; broad spectrum coverage with Zosyn, Vanco. on CT chest, with mucus plugging. d/w Dr Shrestha: impossible to bronch 2/2 sedation/ intubation risk; palliative care 3. COPD: nebs, suppl O2. back on steroids. BiPAP PRN 4. Leukocytosis: reactive 2/2 infection (and steroids). monitor 5. Anemia: mild, chronic. prob multifactorial. anemia profile c/w severe inflammation. low dose PO iron 6. Dehydration: mild at POA. resolved 7. Cachexia: severe. unable to eat sufficiently 2/2 SOB. failed Marinol, Megace as appetite stimulants 8. DM2: diet controlled, but unmasked with steroids. ISS 9. Prophylaxis: PPI, lovenox 10. Dispo: needs end-of life discussion! palliative care consult History of Present Illness History of Present Illness barely able to maintain respir on high flow O2, off BiPAP. Vitals Vitals Vital Signs Date Time Temp Pulse Resp B/P (MAP) Pulse Ox O2 Delivery O2 Flow Rate FiO2 04/07/17 11:40 96 BiPAP/CPAP 04/07/17 11:16 95 04/07/17 11:15 140/72 04/07/17 10:58 96.7 19 96.7 04/06/17 21:35 9.0 Physical Exam General: Alert, mild distress, Other Heart: Regular rate Lungs: Other (diminished BS) Abdomen: Normal bowel sounds, No tenderness, Other (cachectic) Extremities: No edema Skin: No rashes Labs LABS Laboratory Tests Test 04/06/17 18:23 04/06/17 20:55 04/07/17 04:26 04/07/17 07:30 Glucose (Fingerstick) 144 mg/dL (70-99) 117 mg/dL (70-99) 106 mg/dL (70-99) White Blood Count 8.5 x10^3/uL (4.0-11.0) Red Blood Count 4.50 x10^6/uL (4.30-5.70) Hemoglobin 13.0 g/dL (13.0-17.5) Hematocrit 41.4 % (39.0-53.0) Mean Corpuscular Volume 92 fL (79-100) Mean Corpuscular Hemoglobin 29 pg (25-35) Mean Corpuscular Hemoglobin Concent 31 g/dL (31-37) Red Cell Distribution Width 17.0 % (11.5-14.5) Platelet Count 244 x10^3/uL (140-400) Neutrophils (%) (Auto) 86 % (31-73) Lymphocytes (%) (Auto) 10 % (24-48) Monocytes (%) (Auto) 4 % (0-9) Eosinophils (%) (Auto) 0 % (0-3) Basophils (%) (Auto) 0 % (0-3) Neutrophils # (Auto) 7.3 x10^3uL (1.8-7.7) Lymphocytes # (Auto) 0.9 x10^3/uL (1.0-4.8) Monocytes # (Auto) 0.3 x10^3/uL (0.0-1.1) Eosinophils # (Auto) 0.0 x10^3/uL (0.0-0.7) Basophils # (Auto) 0.0 x10^3/uL (0.0-0.2) Sodium Level 141 mmol/L (136-145) Potassium Level 4.2 mmol/L (3.5-5.1) Chloride Level 99 mmol/L (98-107) Carbon Dioxide Level 45 mmol/L (21-32) Anion Gap (6-14) Blood Urea Nitrogen 7 mg/dL (8-26) Creatinine 0.4 mg/dL (0.7-1.3) Estimated GFR (Cockcroft-Gault) 255.1 Glucose Level 107 mg/dL (70-99) Calcium Level 10.0 mg/dL (8.5-10.1) Test 04/07/17 11:53 Glucose (Fingerstick) 131 mg/dL (70-99) Nutrition Consultation Dietary Evaluation: Recommendations by RD: Increase Calorie Intake, Protein supplementation Comments: Add chocolate Ensure TID (provides 350 calories, 20 grams protein per serving) Encourage good PO intake Expected Outcomes/Goals: meet 75% estimated nutrition needs Malnutrition Findings: Body Fat Depletion (Non Severe: Mild Depletion Reduced Auto Dealership Porter Strength: N/A Reduced Auto Dealership Porter Strength (Non-Sev: N/A Malnutrition related to morbid: No Weight Status: Underweight YO SNOWDEN MD April 07, 2017 14:00
[2017-04-07 14:10] LABS: PH ABG 7.35 (7.35-7.45)
[2017-04-07 14:11] LABS: FIO2 ABG 40; HCO3 ABG 48 mmol/L (21-28); PCO2 ABG 88 mmHg (35-46); PO2 ABG 54 mmHg (65-108); SAT O2 ABG 85 % (92-99)
[2017-04-07] MEDS: clonazePAM 0.5 MG TABLET PO PRN (14:28)
--- NOTE | 2017-04-07 14:30 | PDOC ---
JORGE SMITH STARCH MANGLE TENDER 04/07/17 1430: CARDIO Progress Notes Date and Time Date of Service 04/07/17 Time of Evaluation 1405 Subjective Comments: mild respiratory distress- placed back on BiPAP Vitals Vitals Vital Signs Date Time Temp Pulse Resp B/P (MAP) Pulse Ox O2 Delivery O2 Flow Rate FiO2 04/07/17 11:40 96 BiPAP/CPAP 04/07/17 11:16 95 04/07/17 11:15 140/72 04/07/17 10:58 96.7 19 96.7 04/06/17 21:35 9.0 Weight Weight [ ] Input and Output Intake and Output Intake and Output 04/07/17 07:00 Intake Total 100 ml Output Total 2950 ml Balance -2850 ml Intake Oral 0 ml IV Total 100 ml Output Urine Total 2950 ml Laboratory Labs Laboratory Tests Test 04/06/17 18:23 04/06/17 20:55 04/07/17 04:26 04/07/17 07:30 Glucose (Fingerstick) 144 mg/dL (70-99) 117 mg/dL (70-99) 106 mg/dL (70-99) White Blood Count 8.5 x10^3/uL (4.0-11.0) Red Blood Count 4.50 x10^6/uL (4.30-5.70) Hemoglobin 13.0 g/dL (13.0-17.5) Hematocrit 41.4 % (39.0-53.0) Mean Corpuscular Volume 92 fL (79-100) Mean Corpuscular Hemoglobin 29 pg (25-35) Mean Corpuscular Hemoglobin Concent 31 g/dL (31-37) Red Cell Distribution Width 17.0 % (11.5-14.5) Platelet Count 244 x10^3/uL (140-400) Neutrophils (%) (Auto) 86 % (31-73) Lymphocytes (%) (Auto) 10 % (24-48) Monocytes (%) (Auto) 4 % (0-9) Eosinophils (%) (Auto) 0 % (0-3) Basophils (%) (Auto) 0 % (0-3) Neutrophils # (Auto) 7.3 x10^3uL (1.8-7.7) Lymphocytes # (Auto) 0.9 x10^3/uL (1.0-4.8) Monocytes # (Auto) 0.3 x10^3/uL (0.0-1.1) Eosinophils # (Auto) 0.0 x10^3/uL (0.0-0.7) Basophils # (Auto) 0.0 x10^3/uL (0.0-0.2) Sodium Level 141 mmol/L (136-145) Potassium Level 4.2 mmol/L (3.5-5.1) Chloride Level 99 mmol/L (98-107) Carbon Dioxide Level 45 mmol/L (21-32) Anion Gap (6-14) Blood Urea Nitrogen 7 mg/dL (8-26) Creatinine 0.4 mg/dL (0.7-1.3) Estimated GFR (Cockcroft-Gault) 255.1 Glucose Level 107 mg/dL (70-99) Calcium Level 10.0 mg/dL (8.5-10.1) Test 04/07/17 11:53 Glucose (Fingerstick) 131 mg/dL (70-99) Microbiology Micro Microbiology 04/02/17 Blood Culture - Final, Complete NO GROWTH AFTER 5 DAYS 04/03/17 Gram Stain - Final, Complete 04/02/17 Urine Culture - Final, Complete 04/02/17 Urine Culture Result 1 (STEPHANIE) - Final, Complete Physical Exam HEENT: Neck Supple W Full Motion Chest: Symmetric, Other LUNGS: Other (significantly diminished throughout) Heart: other (tele SVT rate 150's ) Abdomen: Soft N/T Extremities: No Edema Neurology: alert, oriented, follow commands Other Exams General: cachectic Assessment Assessment 1. PSVT secondary to significant hypoxia 2. Acute on chronic respiratory failure; requiring continuous BiPAP 3. Pneumonia 4. End-stage COPD 5. Diabetes Recommendations resume BiPAP. If HR remains significantly elevated despite adequate oxygenation , will give cardizem bolus. continue digoxin and Cardizem for rate control. On Eliquis for stroke prevention. prognosis poor given end-stage lung disease; will continue to have tachyarrhythmias despite aggressive medical therapy palliative care consulted- recommend Hospice supportive care from CV perspective CARMENCITA DOUGLAS MD 04/07/17 8997: CARDIO Progress Notes Plan Plan Case discussed with our MERCURY CELL CLEANER. Agree with hospice recommendation. No further recs. Thank you for allowing us to help in this very difficult case. His tachyarrhythmia will not improve despite aggressive medical therapy and may ultimately lead to hypotension. Therefore, continue with anxiolytics, oxygen etc. Pls call with questions. JORGE SMITH APRN April 07, 2017 14:30 CARMENCITA DOUGLAS MD April 07, 2017 22:27
[2017-04-07 14:48] VITALS: BP 124/77
[2017-04-07] MEDS ORDERED: dilTIAZem IV PUSH 25 MG/5 ML VIAL IVP ONE (15:15)
[2017-04-07] MEDS ORDERED: fentaNYL PF VIAL 100 MCG/2 ML VIAL IV PRN (15:30)
--- NOTE | 2017-04-07 16:10 | PDOC2 ---
PALLIATIVE CARE Palliative Care Note Palliative Care Patient seen at 1440 Patient known to PC Consult requested by Dr. Wasserman and Dr. Vaughn Diagnosis: End Stage COPD; LLL pneumonia, At fib /RVR; anemia; DM2; Cachexia HR 148; On BiPap oxygen sat 77-82 % Unable to understand patient while on BiPap Spoke with Daughter Dani. Reviewed above medical condition with Dani and again when Pat (Dani's Aunt) who joined the phone conversation. Results of CT scan reviewed also. Family acknowledged understanding patient is at End Stage COPD. "I know he is at end stage, I want him comfortable but not so much medication that he is not able to talk" "He wants to be home" Reviewed discussion patient had in previous hospitalization concerning his decline to be intubated and put back on Life Support machines. Dr. Vaughn spoke with family as well. Family agrees to use small amounts of medication to help his breathing. Reviewed Cardizem for increased HR. Likely elevated HR is due to his breathing and agitation. Confirmed DNR/DNI Medications to keep breathing comfortable. Continue BiPap Patient has expressed desire to be at home per daughter. Was on hospice for short period (24-48hrs) per daughter. Daughter was encouraged by Aunt to return to . Will continue to have more conversation with family. JERMAINE BERNAL April 07, 2017 16:10
--- NOTE | 2017-04-07 16:18 | PN ---
DATE: ADDENDUM I had a lengthy discussion with the patient's family. I have also discussed the CT chest findings and change in the status. The patient has been pretty much BiPAP dependent all along and has severe end-stage COPD. His CT chest as shown consolidation in the left lower lobe and also mucous plug involving the left lower lobe as well. He is a very high risk candidate for bronchoscopy. If we sedate him for bronchoscopy, he will end up on the ventilator. He is a DNR/DNI. I have discussed this with the patient's family and also with PCP At this time, my approach would be to go with the palliative care approach. They understand that he is declining. They agreed to do low doses of narcotics for air hunger. They do not want to knock him out completely and I have discussed this with RN and we will go from there. JOHN BAIRES MD DR: LÓPEZ/sunny JOB#: [id number] / [id number] EAN
[2017-04-07 19:15] VITALS: BP 140/89
[2017-04-07 23:00] VITALS: BP 144/99
[2017-04-08 03:11] VITALS: BP 161/80
[2017-04-08 03:37] LABS: BASO % 0 % (0-3); EOS % 0 % (0-3); HEMATOCRIT 41.4 % (39.0-53.0); HEMOGLOBIN 12.6 g/dL (13.0-17.5); LYMPH # 0.5 x10^3/uL (1.0-4.8); LYMPH % 5 % (24-48); MEAN CORPUSCULAR HEMOGLOBIN 28 pg (25-35); MEAN CORPUSCULAR HGB CONC 31 g/dL (31-37); MEAN CORPUSCULAR VOLUME 93 fL (79-100); MONO % 2 % (0-9); NEUT % 92 % (31-73); PLATELET COUNT 311 x10^3/uL (140-400); RED BLOOD COUNT 4.44 x10^6/uL (4.30-5.70); RED CELL DISTRIBUTION WIDTH 17.1 % (11.5-14.5)
[2017-04-08 03:49] LABS: BLOOD UREA NITROGEN 14 mg/dL (8-26); CALCIUM 9.5 mg/dL (8.5-10.1); CHLORIDE 100 mmol/L (98-107); CREATININE 0.5 mg/dL (0.7-1.3); GFR 197.2; GLUCOSE 129 mg/dL (70-99); POTASSIUM 3.9 mmol/L (3.5-5.1); SODIUM 145 mmol/L (136-145)
[2017-04-08 03:53] LABS: CARBON DIOXIDE > 45 mmol/L (21-32)
[2017-04-08] MEDS: IV NORMAL SALINE 1000ML BAG 1,000 ML IV SCH ×2 (03:55→18:17)
[2017-04-08] MEDS: PANTOPRAZOLE 40 MG TABLET.DR. PO SCH (05:29)
[2017-04-08] MEDS: BISACODYL 5 MG TABLET.DR. PO SCH (05:29)
[2017-04-08] MEDS: clonazePAM 0.5 MG TABLET PO PRN ×2 (05:30→21:09)
[2017-04-08] MEDS: PIPERACILLIN/TAZOBACTAM 4.5 GM in IV NORMAL SALINE 100ML 100 ML IV SCH ×3 (05:30→18:16)
[2017-04-08] MEDS: IPRATROPIUM BROMIDE 0.5 MG/2.5 ML NEBU. NEB SCH ×4 (07:11→20:23)
[2017-04-08] MEDS: BUDESONIDE 0.5 MG/2 ML NEBU. NEB SCH ×2 (07:11→20:23)
[2017-04-08 07:54] VITALS: BP 166/96
[2017-04-08] MEDS: INSULIN ASPART 300 UNITS/3 ML INSULN.PEN SQ SCH ×3 (08:00→17:00)
[2017-04-08] MEDS: APIXABAN 5 MG TABLET. PO SCH ×2 (09:24→21:09)
[2017-04-08] MEDS: DIGOXIN 125 MCG TABLET. PO SCH (09:24)
[2017-04-08] MEDS: methylPREDNISolone SOD SUCC PF 40 MG/ML VIAL. IV SCH ×2 (09:24→21:08)
[2017-04-08 10:43] VITALS: BP 170/97
--- NOTE | 2017-04-08 10:44 | PDOC ---
PULMONARY PROGRESS NOTES Subjective remains on BIPAP Vitals Vital Signs Date Time Temp Pulse Resp B/P (MAP) Pulse Ox O2 Delivery O2 Flow Rate FiO2 04/08/17 09:24 118 166/96 04/08/17 08:05 Bi-pap 9.0 04/08/17 07:54 97.9 21 95 97.9 ROS: No Nausea, No Abdominal Pain HEENT: Other (nc at perrl) Lungs: Other (diminished BS) Cardiovascular: S1, S2 Abdomen: Soft, Non-tender Neuro Exam: Alert Extremities: No Edema Skin: Warm Labs Laboratory Tests Test 04/06/17 18:23 04/06/17 20:55 04/07/17 04:26 04/07/17 07:30 Glucose (Fingerstick) 144 mg/dL (70-99) 117 mg/dL (70-99) 106 mg/dL (70-99) White Blood Count 8.5 x10^3/uL (4.0-11.0) Red Blood Count 4.50 x10^6/uL (4.30-5.70) Hemoglobin 13.0 g/dL (13.0-17.5) Hematocrit 41.4 % (39.0-53.0) Mean Corpuscular Volume 92 fL (79-100) Mean Corpuscular Hemoglobin 29 pg (25-35) Mean Corpuscular Hemoglobin Concent 31 g/dL (31-37) Red Cell Distribution Width 17.0 % (11.5-14.5) Platelet Count 244 x10^3/uL (140-400) Neutrophils (%) (Auto) 86 % (31-73) Lymphocytes (%) (Auto) 10 % (24-48) Monocytes (%) (Auto) 4 % (0-9) Eosinophils (%) (Auto) 0 % (0-3) Basophils (%) (Auto) 0 % (0-3) Neutrophils # (Auto) 7.3 x10^3uL (1.8-7.7) Lymphocytes # (Auto) 0.9 x10^3/uL (1.0-4.8) Monocytes # (Auto) 0.3 x10^3/uL (0.0-1.1) Eosinophils # (Auto) 0.0 x10^3/uL (0.0-0.7) Basophils # (Auto) 0.0 x10^3/uL (0.0-0.2) Sodium Level 141 mmol/L (136-145) Potassium Level 4.2 mmol/L (3.5-5.1) Chloride Level 99 mmol/L (98-107) Carbon Dioxide Level 45 mmol/L (21-32) Anion Gap (6-14) Blood Urea Nitrogen 7 mg/dL (8-26) Creatinine 0.4 mg/dL (0.7-1.3) Estimated GFR (Cockcroft-Gault) 255.1 Glucose Level 107 mg/dL (70-99) Calcium Level 10.0 mg/dL (8.5-10.1) Magnesium Level 2.0 mg/dL (1.8-2.4) Test 04/07/17 11:53 04/07/17 14:04 04/08/17 02:35 Glucose (Fingerstick) 131 mg/dL (70-99) O2 Saturation 85 % (92-99) Arterial Blood pH 7.35 (7.35-7.45) Arterial Blood pCO2 at Patient Temp 88 mmHg (35-46) Arterial Blood pO2 at Patient Temp 54 mmHg (65-108) Arterial Blood HCO3 48 mmol/L (21-28) Arterial Blood Base Excess 17 mmol/L (-3-3) FiO2 40 White Blood Count 11.0 x10^3/uL (4.0-11.0) Red Blood Count 4.44 x10^6/uL (4.30-5.70) Hemoglobin 12.6 g/dL (13.0-17.5) Hematocrit 41.4 % (39.0-53.0) Mean Corpuscular Volume 93 fL (79-100) Mean Corpuscular Hemoglobin 28 pg (25-35) Mean Corpuscular Hemoglobin Concent 31 g/dL (31-37) Red Cell Distribution Width 17.1 % (11.5-14.5) Platelet Count 311 x10^3/uL (140-400) Neutrophils (%) (Auto) 92 % (31-73) Lymphocytes (%) (Auto) 5 % (24-48) Monocytes (%) (Auto) 2 % (0-9) Eosinophils (%) (Auto) 0 % (0-3) Basophils (%) (Auto) 0 % (0-3) Neutrophils # (Auto) 10.2 x10^3uL (1.8-7.7) Lymphocytes # (Auto) 0.5 x10^3/uL (1.0-4.8) Monocytes # (Auto) 0.3 x10^3/uL (0.0-1.1) Eosinophils # (Auto) 0.0 x10^3/uL (0.0-0.7) Basophils # (Auto) 0.0 x10^3/uL (0.0-0.2) Sodium Level 145 mmol/L (136-145) Potassium Level 3.9 mmol/L (3.5-5.1) Chloride Level 100 mmol/L (98-107) Carbon Dioxide Level > 45 mmol/L (21-32) Anion Gap (6-14) Blood Urea Nitrogen 14 mg/dL (8-26) Creatinine 0.5 mg/dL (0.7-1.3) Estimated GFR (Cockcroft-Gault) 197.2 Glucose Level 129 mg/dL (70-99) Calcium Level 9.5 mg/dL (8.5-10.1) Laboratory Tests Test 04/07/17 11:53 04/07/17 14:04 04/08/17 02:35 Glucose (Fingerstick) 131 mg/dL (70-99) O2 Saturation 85 % (92-99) Arterial Blood pH 7.35 (7.35-7.45) Arterial Blood pCO2 at Patient Temp 88 mmHg (35-46) Arterial Blood pO2 at Patient Temp 54 mmHg (65-108) Arterial Blood HCO3 48 mmol/L (21-28) Arterial Blood Base Excess 17 mmol/L (-3-3) FiO2 40 White Blood Count 11.0 x10^3/uL (4.0-11.0) Red Blood Count 4.44 x10^6/uL (4.30-5.70) Hemoglobin 12.6 g/dL (13.0-17.5) Hematocrit 41.4 % (39.0-53.0) Mean Corpuscular Volume 93 fL (79-100) Mean Corpuscular Hemoglobin 28 pg (25-35) Mean Corpuscular Hemoglobin Concent 31 g/dL (31-37) Red Cell Distribution Width 17.1 % (11.5-14.5) Platelet Count 311 x10^3/uL (140-400) Neutrophils (%) (Auto) 92 % (31-73) Lymphocytes (%) (Auto) 5 % (24-48) Monocytes (%) (Auto) 2 % (0-9) Eosinophils (%) (Auto) 0 % (0-3) Basophils (%) (Auto) 0 % (0-3) Neutrophils # (Auto) 10.2 x10^3uL (1.8-7.7) Lymphocytes # (Auto) 0.5 x10^3/uL (1.0-4.8) Monocytes # (Auto) 0.3 x10^3/uL (0.0-1.1) Eosinophils # (Auto) 0.0 x10^3/uL (0.0-0.7) Basophils # (Auto) 0.0 x10^3/uL (0.0-0.2) Sodium Level 145 mmol/L (136-145) Potassium Level 3.9 mmol/L (3.5-5.1) Chloride Level 100 mmol/L (98-107) Carbon Dioxide Level > 45 mmol/L (21-32) Anion Gap (6-14) Blood Urea Nitrogen 14 mg/dL (8-26) Creatinine 0.5 mg/dL (0.7-1.3) Estimated GFR (Cockcroft-Gault) 197.2 Glucose Level 129 mg/dL (70-99) Calcium Level 9.5 mg/dL (8.5-10.1) Medications Active Scripts Medications Dose Route/Sig Max Daily Dose Days Date Category Dose Instructions Albuterol Sulfate Neb Soln (Albuterol Sulfate) 2.5 Mg/3 Ml Vial.neb 1 Vial NEB Q4HRS 03/19/17 Reported Albuterol Sulfate Neb Soln (Albuterol Sulfate) 2.5 Mg/3 Ml Vial.neb 2.5 Mg NEB PRN Q2HR PRN 03/19/17 Reported Nexium Capsule (Esomeprazole Magnesium) 20 Mg Capsule.dr 20 Mg PO DAILYAC 03/19/17 Reported Clonazepam 0.5 Mg Tablet 0.5 Mg PO BID 30 03/01/17 Rx Prednisone 20 Mg Tablet 30 Mg PO DAILY 30 03/01/17 Rx one and half tab for 3 day then 1tab for 3 day then half tab daily till seen Dr. Tamer Cartia Xt (Diltiazem Hcl) 300 Mg Cap.er.24h 300 Mg PO DAILY 02/22/17 Reported Fluticasone Propionate Nasal [place] (Fluticasone Propionate) 16 Gm [place].susp 2 [place] NS PRN DAILY PRN 12/09/16 Rx Milk Of Magnesia (Magnesium Hydroxide) 2,400 Mg/10 Ml Oral.susp 5,200 Mg PO PRN DAILY PRN 12/07/16 Reported Duoneb 0.5-3(2.5) Mg/3 Ml (Albuterol/Ipratropium) 3 Ml Ampul.neb 3 Ml NEB PRN Q2HR PRN 11/11/16 Reported Prilosec (Omeprazole Magnesium) 10 Mg Suspdr.pkt 20 Mg PO DAILY 11/11/16 Reported Miralax (Polyethylene Glycol 3350) 17 Gm Powd.pack 1 Packet PO DAILY PRN 11/11/16 Reported Symbicort 160-4.5 Mcg Inhaler (Budesonide/Formoterol Fumarate) 10.2 Gm Hfa.aer.ad 2 Puff IH BID 11/11/16 Reported Oxycodone Hcl 20 Mg Tablet 20 Mg PO PRN QID PRN 06/13/16 Reported Bisacodyl 5 Mg Tablet.dr 5 Mg PO DAILY06 06/13/16 Reported Impression . 1. Acute on chronic hypercapnic and hypoxic respiratory failure secondary to healthcare-associated pneumonia involving the left lung./ recurrent LLL mucous plug 2. Leukocytosis secondary to new pneumonia. 3. Abnormal chest x-ray with new infiltrates in the left perihilar and left lower lobes consistent with pneumonia. 4. Mild dehydration. 5. 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 6. SVT Plan . 1. BIPAP prn during day, continuously Qhs, resp status MARGINAL 2. Broad-spectrum antibiotics to cover for healthcare-associated pneumonia, 3. CT CHEST with LLL pneumonia/ mucous plug. d/w family 04/07. He would not be able to tolerate sedation for Bronchoscopy and will go into respiratory failure. They agree with prn MS for air hunger but not ready for hospice yet 4. Follow ABG prn 5. Bronchodilators to Atrovent only, had svt, avoid alb. 6. Deep venous thrombosis prophylaxis. 7. pulmicort, cont systemic steroids. 8. Discussed with RN and pt JOHN BAIRES MD April 08, 2017 10:44
--- NOTE | 2017-04-08 12:37 | PDOC ---
PROGRESS NOTES Chief Complaint Chief Complaint Acute hypoxic, hypercapnic respir failure ASSESSMENT AND PLAN: 1. Afib w/RVR: noted O/N, prompting transfer to CVC. now aflutter with good rate control 2. LLL PNA: HCAP; broad spectrum coverage with Zosyn, Vanco. on CT chest, with mucus plugging. (d/w Dr Shrestha om 04/07: impossible to bronch 2/2 sedation/ intubation risk; palliative care) 3. COPD: nebs, suppl O2. back on steroids. BiPAP PRN 4. Leukocytosis: reactive 2/2 infection (and steroids). monitor 5. Anemia: mild, chronic. prob multifactorial. anemia profile c/w severe inflammation. low dose PO iron 6. Dehydration: mild at POA. resolved 7. Cachexia: severe. unable to eat sufficiently 2/2 SOB. failed Marinol, Megace as appetite stimulants 8. DM2: diet controlled, but unmasked with steroids. ISS 9. Prophylaxis: PPI, lovenox 10. Dispo: appreciate Regina Landry's help with family discussions. daughter not quite in touch with reality concerning her father's situation. DNR per his wishes History of Present Illness History of Present Illness on BiPAP most of the time. very SOB off. added fentanyl for air hunger, titrate to comfort Vitals Vitals Vital Signs Date Time Temp Pulse Resp B/P (MAP) Pulse Ox O2 Delivery O2 Flow Rate FiO2 04/08/17 11:18 BiPAP/CPAP 04/08/17 10:43 98.0 117 22 170/97 (121) 92 98.0 04/08/17 08:05 9.0 Physical Exam General: Alert, mild distress, Other Heart: Regular rate Lungs: Clear Abdomen: Normal bowel sounds, No tenderness, Other (cachectic) Extremities: No edema Skin: No rashes Labs LABS Laboratory Tests Test 04/07/17 14:04 04/08/17 02:35 O2 Saturation 85 % (92-99) Arterial Blood pH 7.35 (7.35-7.45) Arterial Blood pCO2 at Patient Temp 88 mmHg (35-46) Arterial Blood pO2 at Patient Temp 54 mmHg (65-108) Arterial Blood HCO3 48 mmol/L (21-28) Arterial Blood Base Excess 17 mmol/L (-3-3) FiO2 40 White Blood Count 11.0 x10^3/uL (4.0-11.0) Red Blood Count 4.44 x10^6/uL (4.30-5.70) Hemoglobin 12.6 g/dL (13.0-17.5) Hematocrit 41.4 % (39.0-53.0) Mean Corpuscular Volume 93 fL (79-100) Mean Corpuscular Hemoglobin 28 pg (25-35) Mean Corpuscular Hemoglobin Concent 31 g/dL (31-37) Red Cell Distribution Width 17.1 % (11.5-14.5) Platelet Count 311 x10^3/uL (140-400) Neutrophils (%) (Auto) 92 % (31-73) Lymphocytes (%) (Auto) 5 % (24-48) Monocytes (%) (Auto) 2 % (0-9) Eosinophils (%) (Auto) 0 % (0-3) Basophils (%) (Auto) 0 % (0-3) Neutrophils # (Auto) 10.2 x10^3uL (1.8-7.7) Lymphocytes # (Auto) 0.5 x10^3/uL (1.0-4.8) Monocytes # (Auto) 0.3 x10^3/uL (0.0-1.1) Eosinophils # (Auto) 0.0 x10^3/uL (0.0-0.7) Basophils # (Auto) 0.0 x10^3/uL (0.0-0.2) Sodium Level 145 mmol/L (136-145) Potassium Level 3.9 mmol/L (3.5-5.1) Chloride Level 100 mmol/L (98-107) Carbon Dioxide Level > 45 mmol/L (21-32) Anion Gap (6-14) Blood Urea Nitrogen 14 mg/dL (8-26) Creatinine 0.5 mg/dL (0.7-1.3) Estimated GFR (Cockcroft-Gault) 197.2 Glucose Level 129 mg/dL (70-99) Calcium Level 9.5 mg/dL (8.5-10.1) Nutrition Consultation Dietary Evaluation: Recommendations by RD: Increase Calorie Intake, Protein supplementation Comments: Continue the vanilla or strawberry flavored Ensure TID (provides 350 calories, 20 grams protein per serving) Add vanilla boost pudding at lunch (240 calories/7 grams protein per serving) Encourage good PO intake Expected Outcomes/Goals: meet 75% estimated nutrition needs Malnutrition Findings: Body Fat Depletion (Non Severe: Mild Depletion Reduced Pilot Plant Research Technician Strength: N/A Reduced Pilot Plant Research Technician Strength (Non-Sev: N/A Malnutrition related to morbid: No Weight Status: Underweight YO SNOWDEN MD April 08, 2017 12:37
--- NOTE | 2017-04-08 14:02 | PDOC2 ---
PALLIATIVE CARE Palliative Care Note Palliative Care Patient seen 0930 this am. BiPap on. Denied SOB Patient seen again this afternoon--agitated--wanting BiPap off. Weak productive cough. Unable to eat secondary to breathlessness. Wanting BiPap off this afternoon. On 6L NC sats 83-88% Fentanyl 12.5 mcg. given with good results. O2sats unchanged Spoke with daughter Dani at 1315. Reviewed medical condition as above. Wants to continue treatment with antibiotics. Discussed option of Hospice and Comfort Care. Stated "She would make that decision later" Informed that Migdalia BAILEY will be her contact. Will be discussing discharge plans and re-evaluation of goals. JERMAINE BERNAL April 08, 2017 14:02
[2017-04-08] MEDS: ANTI-COAG MONITOR BY PHARMACY. MC PRN (14:21)
[2017-04-08 15:00] VITALS: BP 161/91
[2017-04-08] MEDS ORDERED: fentaNYL PF VIAL 100 MCG/2 ML VIAL IV PRN (15:00)
[2017-04-08 19:15] VITALS: BP 147/83
[2017-04-08 22:50] VITALS: BP 129/74
[2017-04-09] MEDS: PIPERACILLIN/TAZOBACTAM 4.5 GM in IV NORMAL SALINE 100ML 100 ML IV SCH ×3 (00:05→12:13)
[2017-04-09 03:40] VITALS: BP 135/85
[2017-04-09] MEDS: BISACODYL 5 MG TABLET.DR. PO SCH (05:30)
[2017-04-09 07:00] VITALS: BP 140/86
[2017-04-09] MEDS: IPRATROPIUM BROMIDE 0.5 MG/2.5 ML NEBU. NEB SCH ×3 (07:50→15:16)
[2017-04-09] MEDS: BUDESONIDE 0.5 MG/2 ML NEBU. NEB SCH (07:50)
[2017-04-09] MEDS: INSULIN ASPART 300 UNITS/3 ML INSULN.PEN SQ SCH ×2 (08:00→12:00)
--- NOTE | 2017-04-09 08:49 | PDOC ---
PROGRESS NOTES Chief Complaint Chief Complaint Acute hypoxic, hypercapnic respir failure ASSESSMENT AND PLAN: 1. Afib w/RVR: noted O/N, prompting transfer to CVC. now aflutter with good rate control 2. LLL PNA: HCAP; broad spectrum coverage with Zosyn, Vanco. on CT chest, with mucus plugging. (d/w Dr Shrestha om 04/07: impossible to bronch 2/2 sedation/ intubation risk; palliative care appropriate, not accepted by pt) 3. COPD: nebs, suppl O2. back on steroids. BiPAP PRN. feels breathing is much better today 4. Leukocytosis: reactive 2/2 infection (and steroids). monitor 5. Anemia: mild, chronic. prob multifactorial. anemia profile c/w severe inflammation. low dose PO iron 6. Dehydration: mild at POA. resolved 7. Cachexia: severe. unable to eat sufficiently 2/2 SOB. failed Marinol, Megace as appetite stimulants 8. DM2: diet controlled, but unmasked with steroids. ISS 9. Prophylaxis: PPI, lovenox 10. Dispo: to [facility] today History of Present Illness History of Present Illness in BiPAP, but feels much better today. Vitals Vitals Vital Signs Date Time Temp Pulse Resp B/P (MAP) Pulse Ox O2 Delivery O2 Flow Rate FiO2 04/09/17 07:55 96 BiPAP/CPAP 04/09/17 07:30 9.0 04/09/17 07:00 98.3 88 22 140/86 (104) 98.3 Physical Exam General: Alert, mild distress, Other Heart: Regular rate Lungs: Clear Abdomen: Normal bowel sounds, No tenderness, Other (cachectic) Extremities: No edema Skin: No rashes Labs LABS Laboratory Tests Test 04/08/17 20:37 Glucose (Fingerstick) 184 mg/dL (70-99) Nutrition Consultation Dietary Evaluation: Recommendations by RD: Increase Calorie Intake, Protein supplementation Comments: Continue the vanilla or strawberry flavored Ensure TID (provides 350 calories, 20 grams protein per serving) Add vanilla boost pudding at lunch (240 calories/7 grams protein per serving) Encourage good PO intake Expected Outcomes/Goals: meet 75% estimated nutrition needs Malnutrition Findings: Body Fat Depletion (Non Severe: Mild Depletion Reduced Behavioral Pediatrician Strength: N/A Reduced Behavioral Pediatrician Strength (Non-Sev: N/A Malnutrition related to morbid: No Weight Status: Underweight YO SNOWDEN MD April 09, 2017 08:49
[2017-04-09] MEDS: APIXABAN 5 MG TABLET. PO SCH (09:09)
[2017-04-09] MEDS: clonazePAM 0.5 MG TABLET PO PRN (09:09)
[2017-04-09] MEDS: PANTOPRAZOLE 40 MG TABLET.DR. PO SCH (09:09)
[2017-04-09] MEDS: IV NORMAL SALINE 1000ML BAG 1,000 ML IV SCH (09:09)
[2017-04-09] MEDS: methylPREDNISolone SOD SUCC PF 40 MG/ML VIAL. IV SCH (09:10)
[2017-04-09] MEDS: DIGOXIN 125 MCG TABLET. PO SCH (09:10)
[2017-04-09 11:00] VITALS: BP 131/82
--- NOTE | 2017-04-09 11:53 | PDOC ---
PULMONARY PROGRESS NOTES Subjective remains on BIPAP Vitals Vital Signs Date Time Temp Pulse Resp B/P (MAP) Pulse Ox O2 Delivery O2 Flow Rate FiO2 04/09/17 11:21 95 BiPAP/CPAP 04/09/17 11:00 97.9 100 22 131/82 (98) 97.9 04/09/17 07:30 9.0 ROS: No Nausea, No Abdominal Pain HEENT: Other (nc at perrl) Lungs: Clear Cardiovascular: S1, S2 Abdomen: Soft, Non-tender Neuro Exam: Alert Extremities: No Edema Skin: Warm Labs Laboratory Tests Test 04/07/17 11:53 04/07/17 14:04 04/08/17 02:35 04/08/17 20:37 Glucose (Fingerstick) 131 mg/dL (70-99) 184 mg/dL (70-99) O2 Saturation 85 % (92-99) Arterial Blood pH 7.35 (7.35-7.45) Arterial Blood pCO2 at Patient Temp 88 mmHg (35-46) Arterial Blood pO2 at Patient Temp 54 mmHg (65-108) Arterial Blood HCO3 48 mmol/L (21-28) Arterial Blood Base Excess 17 mmol/L (-3-3) FiO2 40 White Blood Count 11.0 x10^3/uL (4.0-11.0) Red Blood Count 4.44 x10^6/uL (4.30-5.70) Hemoglobin 12.6 g/dL (13.0-17.5) Hematocrit 41.4 % (39.0-53.0) Mean Corpuscular Volume 93 fL (79-100) Mean Corpuscular Hemoglobin 28 pg (25-35) Mean Corpuscular Hemoglobin Concent 31 g/dL (31-37) Red Cell Distribution Width 17.1 % (11.5-14.5) Platelet Count 311 x10^3/uL (140-400) Neutrophils (%) (Auto) 92 % (31-73) Lymphocytes (%) (Auto) 5 % (24-48) Monocytes (%) (Auto) 2 % (0-9) Eosinophils (%) (Auto) 0 % (0-3) Basophils (%) (Auto) 0 % (0-3) Neutrophils # (Auto) 10.2 x10^3uL (1.8-7.7) Lymphocytes # (Auto) 0.5 x10^3/uL (1.0-4.8) Monocytes # (Auto) 0.3 x10^3/uL (0.0-1.1) Eosinophils # (Auto) 0.0 x10^3/uL (0.0-0.7) Basophils # (Auto) 0.0 x10^3/uL (0.0-0.2) Sodium Level 145 mmol/L (136-145) Potassium Level 3.9 mmol/L (3.5-5.1) Chloride Level 100 mmol/L (98-107) Carbon Dioxide Level > 45 mmol/L (21-32) Anion Gap (6-14) Blood Urea Nitrogen 14 mg/dL (8-26) Creatinine 0.5 mg/dL (0.7-1.3) Estimated GFR (Cockcroft-Gault) 197.2 Glucose Level 129 mg/dL (70-99) Calcium Level 9.5 mg/dL (8.5-10.1) Laboratory Tests Test 04/08/17 20:37 Glucose (Fingerstick) 184 mg/dL (70-99) Medications Active Scripts Medications Dose Route/Sig Max Daily Dose Days Date Category Dose Instructions Albuterol Sulfate Neb Soln (Albuterol Sulfate) 2.5 Mg/3 Ml Vial.neb 1 Vial NEB Q4HRS 03/19/17 Reported Albuterol Sulfate Neb Soln (Albuterol Sulfate) 2.5 Mg/3 Ml Vial.neb 2.5 Mg NEB PRN Q2HR PRN 03/19/17 Reported Nexium Capsule (Esomeprazole Magnesium) 20 Mg Capsule.dr 20 Mg PO DAILYAC 03/19/17 Reported Clonazepam 0.5 Mg Tablet 0.5 Mg PO BID 30 03/01/17 Rx Prednisone 20 Mg Tablet 30 Mg PO DAILY 30 03/01/17 Rx one and half tab for 3 day then 1tab for 3 day then half tab daily till seen Dr. Edie Olguin Xt (Diltiazem Hcl) 300 Mg Cap.er.24h 300 Mg PO DAILY 02/22/17 Reported Fluticasone Propionate Nasal [place] (Fluticasone Propionate) 16 Gm [place].susp 2 [place] NS PRN DAILY PRN 12/09/16 Rx Milk Of Magnesia (Magnesium Hydroxide) 2,400 Mg/10 Ml Oral.susp 5,200 Mg PO PRN DAILY PRN 12/07/16 Reported Duoneb 0.5-3(2.5) Mg/3 Ml (Albuterol/Ipratropium) 3 Ml Ampul.neb 3 Ml NEB PRN Q2HR PRN 11/11/16 Reported Prilosec (Omeprazole Magnesium) 10 Mg Suspdr.pkt 20 Mg PO DAILY 11/11/16 Reported Miralax (Polyethylene Glycol 3350) 17 Gm Powd.pack 1 Packet PO DAILY PRN 11/11/16 Reported Symbicort 160-4.5 Mcg Inhaler (Budesonide/Formoterol Fumarate) 10.2 Gm Hfa.aer.ad 2 Puff IH BID 11/11/16 Reported Oxycodone Hcl 20 Mg Tablet 20 Mg PO PRN QID PRN 06/13/16 Reported Bisacodyl 5 Mg Tablet.dr 5 Mg PO DAILY06 06/13/16 Reported Impression . 1. Acute on chronic hypercapnic and hypoxic respiratory failure secondary to healthcare-associated pneumonia involving the left lung./ recurrent LLL mucous plug 2. Leukocytosis secondary to new pneumonia. 3. Abnormal chest x-ray with new infiltrates in the left perihilar and left lower lobes consistent with pneumonia. 4. Mild dehydration. 5. 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 6. SVT Plan . 1. BIPAP prn during day, continuously Qhs, resp status MARGINAL 2. Broad-spectrum antibiotics to cover for healthcare-associated pneumonia, 3. CT CHEST with LLL pneumonia/ mucous plug. d/w family 04/07. He would not be able to tolerate sedation for Bronchoscopy and will go into respiratory failure. They agree with prn MS for air hunger but not ready for hospice yet 4. Follow ABG prn 5. Bronchodilators to Atrovent only, had svt, avoid alb. 6. Deep venous thrombosis prophylaxis. 7. pulmicort, cont systemic steroids. 8. poor prognosis JOHN BAIRES MD April 09, 2017 11:53
[2017-04-09] MEDS: ANTI-COAG MONITOR BY PHARMACY. MC PRN (14:00)
[2017-04-09 15:00] VITALS: BP 151/91
--- NOTE | 2017-04-10 00:08 | DS ---
DATE OF DISCHARGE: 04/09/2017 CHIEF COMPLAINT: Acute hypoxic hypercapnic respiratory failure. HOSPITAL COURSE: The patient is a 71-year-old gentleman with severe O2 dependent COPD, who presented to the Emergency Room with severe respiratory failure. He had declared himself to be DNR and was therefore put on BiPAP. Chest x-ray in the Emergency Room revealed left lower lobe pneumonia and he was treated for both pneumonia as well as COPD exacerbation during his hospitalization. A repeat chest x-ray actually showed mucous plugging, however, because of sedation intubation risk, the patient was deemed unsafe to undergo bronchoscopy for clearance. He continued to improve in his respiratory status with ongoing treatments and frequent BiPAP and on day of discharge, actually felt well without any complaints. The patient was also noted to be severely cachectic. This was thought to be secondary to his severe respiratory difficulties even at home. Despite have not used Marinol as well as Megace in the past, he is unable to eat sufficient calories because of his shortness of breath. He was deemed stable for discharge to [facility] on the . PHYSICAL EXAMINATION: Please refer to the note from same day. DISCHARGE DATE: 04/09/2017. DISCHARGE DIAGNOSES: ____ left lower lobe pneumonia, atrial fibrillation with rapid ventricular response. DISCHARGE DISPOSITION: [facility]AC. DISCHARGE CONDITION: Improved. DISCHARGE MEDICATIONS: Please refer to MAR. DISCHARGE INSTRUCTIONS: The patient will follow up with his PCP upon return to home. YO SNOWDEN MD DR: FRANCISCA/nts JOB#: [id number] / [id number] QING Alegria MD
== END 2017-04-09 17:00 | DRG 871 ==
LOC: ER 10:51 → 1 WEST ICU 12:43 → 5 NORTH 04-03 20:03 → 2 NORTH 04-05 21:56
PROVIDERS: ADMIT Internal Medicine; ATTEND Internal Medicine
PROC: 5A09557 Assistance with Respiratory Ventilation, Greater than 96 Consecutive Hours, Continuous Positive Airway Pressure (ICD-10-PCS; principal; 2017-04-02)
DX: A41.9 Sepsis, unspecified organism (principal); J15.6 Pneumonia due to other Gram-negative bacteria; E43 Unspecified severe protein-calorie malnutrition; J96.21 Acute and chronic respiratory failure with hypoxia; J96.22 Acute and chronic respiratory failure with hypercapnia; I47.1 Supraventricular tachycardia; I48.92 Unspecified atrial flutter; J44.0 Chronic obstructive pulmonary disease with (acute) lower respiratory infection; J44.1 Chronic obstructive pulmonary disease with (acute) exacerbation; R64 Cachexia; T17.890A Other foreign object in other parts of respiratory tract causing asphyxiation, initial encounter; Z68.1 Body mass index [BMI] 19.9 or less, adult; D64.9 Anemia, unspecified; E11.9 Type 2 diabetes mellitus without complications; E86.0 Dehydration; I11.9 Hypertensive heart disease without heart failure; I48.91 Unspecified atrial fibrillation; K21.9 Gastro-esophageal reflux disease without esophagitis; Z51.5 Encounter for palliative care; Z66 Do not resuscitate; Y95 Nosocomial condition; Z87.891 Personal history of nicotine dependence; Z85.46 Personal history of malignant neoplasm of prostate; Z82.49 Family history of ischemic heart disease and other diseases of the circulatory system; Z99.81 Dependence on supplemental oxygen; Z96.659 Presence of unspecified artificial knee joint; Z88.8 Allergy status to other drugs, medicaments and biological substances
CPT/HCPCS: 36415; 36600; 71010; 71250; 80048; 80053; 80076; 80202; 81001; 82553; 82607; 82728; 82746; 82805; 82947; 83036; 83540; 83550; 83605; 83735; 83880; 84132; 84443; 84484; 85007; 85027; 85045; 87040; 87070; 87086; 87205; 87641; 87804; 93005; 94250; 94640; 94644; 94660; 94760; 96361; 96365; 96375; J0456; J0690; J1160; J1650; J1742; J1815; J1956; J2543; J2920; J2930; J3010; J3370; J3490; J7030; J7050; J7060; J7620; J7644; 99291-25

== ENCOUNTER 2017-06-17 12:45 | Emergency (ER) | payer MEDICARE, OTHER ==
[~2017-06-17] VITALS: Ht 185.4 cm; Wt 61.2 kg
[~2017-06-17 12:45] MED LIST changes: -LEVO500T38 PO; +LEVO500T59 PO; -MELO-150 PO; +MELO15TA23 PO
[2017-06-17] MEDS ORDERED: IPRATRPIUM/ALBUTEROL 0.5/2.5MG 3 ML NEBU. NEB ONE (13:45)
[2017-06-17 15:00] VITALS: BP 156/82
--- NOTE | 2017-06-17 15:20 | PHYS DOC ---
Past Medical History Past Medical History: COPD, Hypertension, Renal Disease, Other Additional Past Medical Histor: generalized weakness, malnurished Past Surgical History: Knee Replacement, Other Additional Past Surgical Histo: PROSTATE, WRIST, R KNEE Alcohol Use: None Drug Use: None Adult General Chief Complaint Chief Complaint: SHORTNESS OF BREATH HPI HPI Patient is a 71 year old male who presents with slight confusion. Patient has known history of chronic respiratory failure, on nasal cannula oxygen. Patient had some increased confusion and daughter and home health worker was concerned that patient had 2 much CO2 retention. The patient denies any new symptoms, is alert and oriented 4, states he has no chest pain or shortness of breath. No increased cough, no fevers. Patient has been wearing increased oxygen when he exerts himself. Daughter notes that he has O2 sats of 100% frequently at home. Primary soils analyst is Dr. Pinzon, PCP is Dr. Irizarry Review of Systems Review of Systems Constitutional: Denies fever or chills [] Eyes: Denies change in visual acuity, redness, or eye pain [] HENT: Denies nasal congestion or sore throat [] Respiratory: Denies increased cough or shortness of breath [] Cardiovascular: Denies chest pain GI: Denies abdominal pain, nausea, vomiting, bloody stools or diarrhea [] : Denies dysuria or hematuria [] Musculoskeletal: Denies back pain or joint pain [] Integument: Denies rash or skin lesions [] Neurologic: Denies headache, focal weakness or sensory changes [] Current Medications Current Medications Current Medications Medications (Trade) Dose Ordered Sig/Pierre Start Time Stop Time Status Last Admin Dose Admin Albuterol/ Ipratropium (Duoneb) 3 ml 1X ONCE 06/17/17 13:45 06/17/17 13:46 DC 06/17/17 14:12 3 ML Allergies Allergies Allergies Coded Allergies Type Severity Reaction Last Updated Verified lisinopril Allergy Intermediate 03/19/17 Yes Physical Exam Physical Exam Constitutional: Well developed, well nourished, no acute distress, non-toxic appearance. [] HENT: Normocephalic, atraumatic, bilateral external ears normal, oropharynx moist, no oral exudates, nose normal. [] Eyes: PERRLA, EOMI, conjunctiva normal, no discharge. [] Neck: Normal range of motion, no tenderness, supple, no stridor. [] Cardiovascular:Heart rate regular rhythm Lungs & Thorax: poor air movement diffusely, faint exp wheeze Abdomen: Bowel sounds normal, soft, no tenderness, no masses, no pulsatile masses. [] Skin: Warm, dry, no erythema, no rash. [] Back: No tenderness, no CVA tenderness. [] Extremities: No tenderness, no cyanosis, no clubbing, ROM intact, no edema. [] Neurologic: Alert and oriented X 3, normal motor function, normal sensory function, no focal deficits noted. [] Psychologic: Affect normal, judgement normal, mood normal. [] Current Patient Data Vital Signs Vital Signs Date Time Temp Pulse Resp B/P (MAP) Pulse Ox O2 Delivery O2 Flow Rate FiO2 06/17/17 15:00 22 156/82 (106) 95 Nasal Cannula 2.0 06/17/17 13:45 97.8 96 97.8 EKG EKG [] Radiology/Procedures Radiology/Procedures [] Course & Med Decision Making Course & Med Decision Making Pertinent Labs and Imaging studies reviewed. (See chart for details) 's O2 sat on 4 L nasal cannula oxygen was 100%. I discussed with the patient and his daughter that having too much oxygen can increase his CO2, recommend that he keep his O2 sats near 90-94% as A way of monitoring this at home. He can increase his nasal cannula oxygen as needed when he exerts himself. Patient was curious about the BiPAP that was supposed to be ordered for him at home. Steve Mg came to the ED to help facilitate. This has not yet been ordered. They discussed and patient will follow up with his soils analyst to have a sleep study performed. Pt was given duoneb breathing treatment in the ED. Dragon Disclaimer Dragon Disclaimer This electronic medical record was generated, in whole or in part, using a voice recognition dictation system. Departure Departure Impression: Primary Impression: COPD (chronic obstructive pulmonary disease) Disposition: 01 HOME, SELF-CARE Condition: STABLE Referrals: LIGIA PINZON MD Patient Instructions: Chronic Obstructive Pulmonary Disease SARAH WHITT MD Jun 17, 2017 15:20
== END 2017-06-17 15:07 | disposition home or self-care (01) ==
LOC: ER 12:45
DX: J44.9 Chronic obstructive pulmonary disease, unspecified (principal); I12.9 Hypertensive chronic kidney disease with stage 1 through stage 4 chronic kidney disease, or unspecified chronic kidney disease; N18.9 Chronic kidney disease, unspecified; Z88.8 Allergy status to other drugs, medicaments and biological substances
CPT/HCPCS: 94640; 99283; J7620

== ENCOUNTER 2017-07-05 13:33 | Emergency (ER) | payer MEDICARE, OTHER ==
[2017-07-05 13:47] VITALS: BP 119/73
[2017-07-05] MEDS ORDERED: CEPH-264 PO (14:28)
--- NOTE | 2017-07-05 14:28 | PHYS DOC ---
Past Medical History Past Medical History: COPD, Hypertension, Renal Disease, Other Additional Past Medical Histor: generalized weakness, malnurished Past Surgical History: Knee Replacement, Other Additional Past Surgical Histo: PROSTATE, WRIST, R KNEE Alcohol Use: None Drug Use: None Adult General Chief Complaint Chief Complaint: TOE PROBLEM HPI HPI Patient is a 71 year old male Presents to the emergency department stating that he has a blister on his right second toe. He states that his been there for approximately 3 days. She denies any drainage or discharge. He denies any rubbing on issues, he denies any bites to the toe. He states that the blister appear to be very dark. He denies any fever, chills. Family member at bedside states that she was concerned when he came home because he was sent home on a sliding scale insulin. She states within followed up with the primary care physician they took him off of the sliding scale. Patient states that this blister is been there for 2-3 days with no drainage. Denies any pain or discomfort. Review of Systems Review of Systems Constitutional: Denies fever or chills [] Eyes: Denies change in visual acuity, redness, or eye pain [] HENT: Denies nasal congestion or sore throat [] Respiratory: Denies cough or shortness of breath [] Cardiovascular: No additional information not addressed in HPI [] GI: Denies abdominal pain, nausea, vomiting, bloody stools or diarrhea [] : Denies dysuria or hematuria [] Musculoskeletal: Denies back pain or joint pain [] Integument: Denies rash or skin lesions. Blister to the right second toe. Neurologic: Denies headache, focal weakness or sensory changes [] Endocrine: Denies polyuria or polydipsia [] Allergies Allergies Allergies Coded Allergies Type Severity Reaction Last Updated Verified lisinopril Allergy Intermediate 03/19/17 Yes Physical Exam Physical Exam Constitutional: Well developed, well nourished, no acute distress, non-toxic appearance. [] HENT: Normocephalic, atraumatic, bilateral external ears normal, oropharynx moist, no oral exudates, nose normal. [] Eyes: PERRLA, EOMI, conjunctiva normal, no discharge. [] Neck: Normal range of motion, no tenderness, supple, no stridor. [] Cardiovascular:Heart rate regular rhythm, no murmur [] Lungs & Thorax: Bilateral breath sounds breath sounds decreased bilaterally. Patient is on 1 L of O2 per nasal cannula. Skin: Warm, dry, no erythema, no rash. Patient with a dime-sized blister noted to the right second toe. No drainage or discharge noted from the area. Back: No tenderness Extremities: No tenderness, no cyanosis, no clubbing, ROM intact, no edema. [] Neurologic: Alert and oriented X 3, normal motor function, normal sensory function, no focal deficits noted. [] Psychologic: Affect normal, judgement normal, mood normal. [] Current Patient Data Vital Signs Vital Signs Date Time Temp Pulse Resp B/P (MAP) Pulse Ox O2 Delivery O2 Flow Rate FiO2 07/05/17 13:47 98.1 95 20 91 Nasal Cannula 2.0 98.1 EKG EKG [] Radiology/Procedures Radiology/Procedures [] Course & Med Decision Making Course & Med Decision Making Pertinent Labs and Imaging studies reviewed. (See chart for details) Patient's glucose is 71 family will be instructed that at this time his glucoses within normal limits. We'll recommend that the patient go to wound care , we'll also provide the patient with an antibiotic Keflex at the current time. Recommended that he keep the area covered and prevent it from breaking. Signs and symptoms to return back to emergency department as been provided. Patient agrees with discharge instructions, treatment regimens and follow-up recommendations. All questions were answered at bedside. [] Dragon Disclaimer Dragon Disclaimer This electronic medical record was generated, in whole or in part, using a voice recognition dictation system. Departure Departure Impression: Primary Impression: Blister of toe Disposition: HOME, SELF-CARE Condition: STABLE Referrals: LEISA HARRISON MD (PCP) Patient Instructions: Blisters Additional Instructions: Keep the area clean and dry. Antibiotics as prescribed. Follow-up with wound care on Friday or Friday. If you're unable to get into wound care follow-up through primary care physician. Do not pop the blisters. Keep the area covered. Return to emergency prior signs symptoms of become worse. Scripts Cephalexin (KEFLEX) 500 Mg Capsule 1 CAP PO BID, #20 CAP Prov: ANNY ALBERT APRN 07/05/17 ANNY ALBERT APRN Jul 05, 2017 14:28
== END 2017-07-05 14:36 | disposition home or self-care (01) ==
LOC: ER 13:33
DX: S90.424A Blister (nonthermal), right lesser toe(s), initial encounter (principal); J44.9 Chronic obstructive pulmonary disease, unspecified; I12.9 Hypertensive chronic kidney disease with stage 1 through stage 4 chronic kidney disease, or unspecified chronic kidney disease; N18.9 Chronic kidney disease, unspecified; Z96.651 Presence of right artificial knee joint; Z88.8 Allergy status to other drugs, medicaments and biological substances; X58.XXXA Exposure to other specified factors, initial encounter; Y93.89 Activity, other specified; Y92.89 Other specified places as the place of occurrence of the external cause; Y99.8 Other external cause status
CPT/HCPCS: 82962; 99283